=== PATIENT | female | born 1960 | race Caucasian/White ===

== ENCOUNTER → 2016-10-23 | Outpatient (CLI) | payer OTHER ==
[~2016-10-23] MED LIST: FILG300I4 IM; LEVE750T PO; LORA1TAB13 PO; MIRT45TA PO; ONDA4TAB65 PO; OPTIRAY 320 IV PRN; OXYC1CAP5 PO; VENL75TA4 PO
--- NOTE | 2016-10-23 16:34 | DIAGNOSTIC IMAGING REPORT ---
CT ANGIOGRAM OF THE CHEST CLINICAL HISTORY: Dyspnea on exertion. COMPARISON STUDY: Chest x-ray dated 04/15/2009. Chest x-ray dated 05/09/2014. TECHNIQUE: Following the IV administration of 91 cc of Optiray 320, CT angiogram of the chest was performed from the upper abdomen to the thoracic inlet utilizing the pulmonary embolus protocol. Images are reviewed in the axial, sagittal, and coronal planes. 3-D MIPS images are created and assessed. IV contrast was administered without complication. CT DOSE: 287.65 mGy.cm FINDINGS: Thyroid: Imaged portions of the thyroid gland are normal in size and attenuation. Thoracic aorta: There is mild atherosclerotic calcification of the thoracic aorta, which is normal in caliber and demonstrates standard 3-vessel arch anatomy. No dissection is seen. Pulmonary vasculature: The pulmonary trunk is normal in caliber. There are no central filling defects identified in the main, lobar, or segmental pulmonary arteries to suggest pulmonary embolus. Heart: The heart is top normal in size and configuration, and without pericardial effusion. Lungs and pleural spaces: There is no airspace consolidation or pleural effusion. Dependent atelectasis is noted. The trachea and central airways are clear. Mediastinum: Mildly enlarged mediastinal lymph nodes measure up to 12 mm in short axis. Valerie: Clear. Axillae: There is no axillary lymphadenopathy. Upper abdomen: A small hiatal hernia is identified. Cholecystectomy clips are noted. There is severe hepatic steatosis. Skeletal structures: The skeletal structures are osteopenic. No lytic or blastic bony lesions are seen. Fusion hardware is noted in the lower cervical spine. Chronic posttraumatic deformity is suggested in the distal right clavicle. IMPRESSION: 1. There is no evidence of pulmonary embolus in the main, lobar, or segmental pulmonary arteries. 2. There is no airspace consolidation or pleural effusion. 3. Severe hepatic steatosis. 4. Mildly enlarged mediastinal lymph nodes are nonspecific and may be on a reactive basis. Clinical correlation will be required. Electronically signed by: Keegan Caceres M.D. 10/23/2016 4:33 PM Dictated Date/Time: 10/23/2016 4:26 PM
== END | disposition home or self-care (01) ==
LOC: C.CTS 16:03
PROVIDERS: ATTEND Nurse Practitioner
DX: R06.09 Other forms of dyspnea (principal); R91.8 Other nonspecific abnormal finding of lung field; J98.4 Other disorders of lung

== ENCOUNTER → 2017-01-01 | Outpatient (CLI) | payer OTHER ==
[~2017-01-01] MED LIST changes: -OPTIRAY 320 IV PRN
--- NOTE | 2017-01-01 09:22 | DIAGNOSTIC IMAGING REPORT ---
(BARIUM SWALLOW) ESOPHAGUS CLINICAL HISTORY: Short of breath. Pneumonia. COMPARISON STUDY: Upper GI series and small bowel follow-through 01/23/2007. FLUOROSCOPY TIME: 1.2 minutes.. FINDINGS: 20 fluoroscopic spot images. Mild esophageal dysmotility. Esophagus is normal in course and caliber. The contours of the hypopharynx are within normal limits. Anterior cervical discectomy and fusion. No hiatus hernia. No gastroesophageal reflux. The barium tablet passed without difficulty. IMPRESSION: Mild esophageal dysmotility. Electronically signed by: Charan Miles M.D. 01/01/2017 9:21 AM Dictated Date/Time: 01/01/2017 9:19 AM
== END | disposition home or self-care (01) ==
LOC: C.RAD 08:51
PROVIDERS: ATTEND Nurse Practitioner Family
DX: R06.02 Shortness of breath (principal)

== ENCOUNTER → 2017-01-27 | Outpatient (CLI) | payer OTHER ==
[2017-01-27 12:39] LABS: ARTERIAL BLD GAS O2 SATURATION 92.5 % (90-95); ARTERIAL BLOOD GAS BASE EXCESS -0.5 mEq/L (-9-1.8); ARTERIAL BLOOD GAS HCO3 24 mmol/L (19-24); ARTERIAL BLOOD GAS PO2 69 mm/Hg (80-95); ARTERIAL BLOOD GAS pH 7.41 (7.35-7.45)
[2017-01-27 12:41] LABS: ALLEN TEST POSITIVE (POS); O2 ADMINISTRATION ROOM AIR
[2017-01-27 12:52] LABS: METHEMOGLOBIN** 0.1 % (0.0-1.5)
== END | disposition home or self-care (01) ==
LOC: C.LAB 11:55
PROVIDERS: ATTEND Nurse Practitioner Family
DX: R06.09 Other forms of dyspnea (principal)

== ENCOUNTER → 2017-02-21 | Outpatient (CLI) | payer OTHER ==
--- NOTE | 2017-02-21 13:23 | DIAGNOSTIC IMAGING REPORT ---
VIDEO SWALLOW HISTORY: Dysphagia K22.4,R13.10 TECHNIQUE: Video fluoroscopic evaluation of swallowing was performed in the AP and lateral projections by the speech pathology staff. The patient is fed nectar-thick and thin liquid barium, a barium coated wafer, and barium pudding. FLUOROSCOPY TIME: 3 minutes. COMPARISON STUDY: None. FINDINGS: There is normal hyoid excursion and epiglottic deflection. No significant penetration or aspiration identified. Swallowing function is within normal limits. IMPRESSION: 1. No aspiration identified. 2. Please see the speech pathologist report for detailed findings and recommendations. Electronically signed by: Polo Crabtree M.D. 02/21/2017 1:22 PM Dictated Date/Time: 02/21/2017 1:21 PM
--- NOTE | 2017-02-21 14:04 | SWALLOWING EVALUATION ---
HISTORY: This 57 year-old woman was referred for a VFSS at [facility] in order to rule out microaspiration as a contributor to her chronic respiratory distress. The patient has a PMH significant for TBI (2010), seizure disorder, depression, Hep C, ETOH, HTN, PSH, anxiety, chronic pain, GERD. Currently the patient's diet level is regular. PROCEDURE: The patient was seen in the Radiology Department of [facility] for the VFSS. Cursory examination of the oral cavity revealed adequate dentition. Movement of the articulators was WNL. The patient was seated on a stool and was viewed in both the Anterior-Posterior (A-P) and Lateral planes. Volitional phonation exercises completed in the A-P plane revealed cervical hardware making it difficult to visualize vocal fold movement. In the lateral plane, the patient was given the following boluses: 1 tsp. thin liquid barium x 2, single swallow thin liquid barium self-presented from a cup, sequential swallows of thin liquid barium self-presented from a cup, 1 tsp. nectar-thick liquid barium, single swallow nectar-thick liquid barium self-presented from a cup, 1 tsp. barium pudding, and 1 club cracker with barium pudding. The patient was then repositioned into the A-P plane and given 1 tsp. barium pudding followed by a self-presented cup sip thin liquid barium as liquid wash. RESULTS: Oral Stage: Labial closure and tongue control was adequate. Mastication was timely and efficient. Bolus transport was brisk. There was oral residue after the initial swallow on the tongue. Initiation of the pharyngeal swallow was timely. After initial swallow patient had oral residue, but it cleared easily with a second dry swallow. Pharyngeal Stage: Soft palate elevation as complete. Laryngeal elevation and anterior hyoid excursion was complete. Epiglottic inversion was complete. Laryngeal vestibular closure was complete. Pharyngeal stripping wave was complete. Pharyngeal contraction was complete. Pharyngoesophageal segment opening had complete distension and duration with no obstruction of flow. Tongue base retraction was complete. There was no pharyngeal residue. Patient did not have any penetration or aspiration with any consistency. Patient's pharyngeal swallow was within normal limits. Esophageal Stage: There was mild esophageal retention that was cleared easily with a liquid wash. SUMMARY/RECOMMENDATIONS: This patient presents with normal swallow function. There was no penetration or aspiration. Swallow is WNL. A regular diet with thin liquids is recommended. There is no apparent role for continued outpatient [facility] services. A summary of the results and recommendations was discussed with patient and a friend who accompanied her and understanding was verbalized. Thank you for referral of this patient. Please contact me at if any additional information is needed. Loretta López [facility]
== END | disposition home or self-care (01) ==
LOC: C.RAD 11:48
PROVIDERS: ATTEND Nurse Practitioner Family
DX: K22.4 Dyskinesia of esophagus (principal); R13.10 Dysphagia, unspecified

== ENCOUNTER 2018-04-08 11:31 | Inpatient (IN) | payer OTHER ==
[~2018-04-08] VITALS: Ht 167.6 cm; Wt 70.4 kg
[2018-04-08] VITALS (13 sets, daily range): BP systolic 128–169; BP diastolic 69–100; PULSE 77–98; TEMP 36.8–37; O2SAT 98–100; BMI 26.0
[~2018-04-08 11:31] MED LIST changes: +ATV1 PO; +CYM20 PO; +ETOMIDATE 2 MG/ML 20 ML VIAL IV ONE; -FILG300I4 IM; +FLV1 PO; +FNTTP25 TOP; +HYDR-3983 PO; +LEVE500T14 PO; -LEVE750T PO; -LORA1TAB13 PO; +LRS20 PO; -MIRT45TA PO; -ONDA4TAB65 PO; +ONDA4TAB9 PO; -OXYC1CAP5 PO; +PRLSR20 PO; +RMRS/45 PO; +ROCURONIUM BROMIDE 10 MG/ML 5 ML VIAL IV ONE; +THIA1TAB PO; +TPRSR50 PO
[2018-04-08] MEDS ORDERED: LORAZEPAM 2 MG/ML 1 ML VIAL ONE ×2 (11:55→12:04)
[2018-04-08] MEDS ORDERED: HALOPERIDOL LACTATE 5 MG/ML 1 ML VIAL ONE ×2 (11:57)
[2018-04-08] MEDS ORDERED: SODIUM CHLORIDE 0.9% 1000ML 1,000 ML IV STA (12:03)
[2018-04-08] MEDS ORDERED: RAPID SEQUENCE INDUCTION BAG ONE ×2 (12:06)
[2018-04-08] MEDS ORDERED: PIPERACILLIN/TAZOBACTAM 4.5 GM/100ML D5W IV STA (12:26)
[2018-04-08] MEDS ORDERED: MULTI-VITAMIN INFUSION INJ 10 ML, THIAMINE HCL INJ 100 MG, FoLIC ACID INJ 1 MG in SODIU... IV ONE (12:30)
--- NOTE | 2018-04-08 12:31 | DIAGNOSTIC IMAGING REPORT ---
CHEST ONE VIEW PORTABLE HISTORY: 58 years-old Female EVALUATE ALTERED MENTAL STATUS/WEAKNESS acute respiratory failure with weakness and altered mental status COMPARISON: Chest radiograph 02/26/2018 TECHNIQUE: Portable AP view of the chest FINDINGS: Cardiac silhouette is upper limits of normal in size. Mild chronic interstitial coarsening, most pronounced in the perihilar distributions and lung bases appear unchanged. Calcifications of the tracheal bronchial tree. No pneumothorax, pleural effusion or focal airspace consolidation. No overt pulmonary edema. Endotracheal tube is present coursing along the right mainstem bronchus below the level the rashmi. Bones of the chest appear grossly intact. Fusion hardware of the cervical spine noted. IMPRESSION: 1. Endotracheal tube overlies the right mainstem bronchus. Retraction of approximately 4.0 cm with follow-up imaging recommended. 2. Chronic bibasilar interstitial opacities. The above report was generated using voice recognition software. It may contain grammatical, syntax or spelling errors. Electronically signed by: Berny Gusman M.D. 04/08/2018 12:29 PM Dictated Date/Time: 04/08/2018 12:27 PM
[2018-04-08 12:42] LABS: BASO % 0.5 %; BASO ABS # 0.03 K/uL (0-0.2); EOS % 4.2 %; EOS ABS # 0.23 K/uL (0-0.5); HEMATOCRIT 43.1 % (37-47); HEMOGLOBIN 14.1 g/dL (12.0-16.0); LYMPH % 31.4 %; LYMPH ABS # 1.74 K/uL (1.2-3.4); MEAN CELL VOLUME 99.8 fL (80-100); MEAN CORPUSCULAR HEMOGLOBIN 32.6 pg (25-34); MEAN CORPUSCULAR HGB CONC 32.7 g/dl (32-36); MEAN PLATELET VOLUME 9.2 fL (7.4-10.4); MONO % 8.3 %; MONO ABS # 0.46 K/uL (0.11-0.59); NEUT % 55.6 %; NEUT ABS # 3.08 K/uL (1.4-6.5); PLATELET COUNT 155 K/uL (130-400); RED CELL DISTRIBUTION WIDTH CV 15.2 % (11.5-14.5); RED CELL DISTRIBUTION WIDTH SD 55.2 fL (36.4-46.3); WHITE BLOOD COUNT 5.54 K/uL (4.8-10.8)
[2018-04-08] MEDS ORDERED: PROPOFOL IV EMULSION 10 MG/ML 100 ML VIAL ONE (12:43)
[2018-04-08] MEDS ORDERED: ACAM0.05 PO (12:45)
[2018-04-08] MEDS ORDERED: SUMA50TA15 PO (12:45)
[2018-04-08] MEDS ORDERED: UMEC1AER PO (12:45)
[2018-04-08] MEDS ORDERED: LABETALOL HCL IV 5 MG/ML 20ML IV STA (12:52)
[2018-04-08] MEDS ORDERED: LABETALOL HCL IV 5 MG/ML 20ML ONE (12:52)
[2018-04-08 13:00] LABS: INR 1.1 (0.9-1.1); PTT PATIENT 25.9 SECONDS (21.0-31.0)
[2018-04-08 13:11] LABS: ALBUMIN 3.4 gm/dl (3.4-5.0); ALT/SGPT 17 U/L (12-78); AST/SGOT 33 U/L (15-37); BLOOD UREA NITROGEN 4 mg/dl (7-18); CALCIUM 8.7 mg/dl (8.5-10.1); CARBON DIOXIDE 24 mmol/L (21-32); CREATININE 0.67 mg/dl (0.60-1.20); GLUCOSE 110 mg/dl (70-99); SODIUM 140 mmol/L (136-145)
[2018-04-08 13:12] LABS: ALKALINE PHOSPHATASE 95 U/L (45-117); TOTAL PROTEIN 7.5 gm/dl (6.4-8.2)
[2018-04-08] MEDS ORDERED: ICU PROTOCOL FOR HYPERGLYCEMIA PRN ×2 (13:15→14:15)
[2018-04-08] MEDS ORDERED: DIAZEPAM INJ 5 MG/ML 2 ML CARP IV STA (13:46)
[2018-04-08] MEDS ORDERED: DIAZEPAM 5 MG/ML INJ 10ML VIAL ONE (13:49)
--- NOTE | 2018-04-08 14:30 | DIAGNOSTIC IMAGING REPORT ---
HEAD WITHOUT CONTRAST (CT) CLINICAL HISTORY: 58 years-old Female with EVALUATE ALTERED MENTAL STATUS/WEAKNESS. Acute weakness with altered mental status TECHNIQUE: Multiple axial CT images of the head were obtained without contrast. A dose lowering technique was utilized adhering to the principles of ALARA. CT DOSE: 537.48 mGy.cm COMPARISON: CT head 02/27/2018. FINDINGS: No acute intracranial hemorrhage, midline shift, intracranial mass, hydrocephalus, territorial ischemia or abnormal extra-axial collection. Postoperative changes from prior right calvarial craniotomy. No acute calvarial fracture. Mastoid air cells are clear. Mucosal thickening of the ethmoid air cells, and nasal turbinates and nasopharynx. Soft tissues and orbits are unremarkable. IMPRESSION: No acute intracranial abnormality. The above report was generated using voice recognition software. It may contain grammatical, syntax or spelling errors. Electronically signed by: Berny Gusman M.D. 04/08/2018 2:28 PM Dictated Date/Time: 04/08/2018 2:26 PM
--- NOTE | 2018-04-08 15:49 | History and Physical ---
History & Physical Date & Time of Service: Apr 08, 2018 at 14:08 Chief Complaint: [facility] Primary Care Physician: Manuelito Caal D.O. History of Present Illness Source: clinic records, hospital records, EMS Patient is a 58-year-old female with PMH seizure disorder, COPD, anxiety, depression, chronic pain on narcotic pain medication, alcohol abuse, history of alcohol withdrawal in past presented to the ER via EMS for altered mental status. It is reported that patient's family member found patient today sitting in chair not responding with her tongue sticking out and EMS was called. In route patient became apneic and was given Narcan 2 intranasally by EMS. It is reported upon arrival to ER patient was agitated and aggressive with dilated bilateral pupils. ER nurse reports patient was found to have two 25 mcg fentanyl patches on. Patient was given Ativan 2 mg and Haldol 10 mg with continued combativeness, was then intubated, is on propofol and is in restraints. It is reported by family members that she drinks beer daily. It is reported last night she drank unknown amount of beer and vodka. Patient had recent admission to [facility] 03/02/18-03/05/18 (patient signed out AMA) for catecholamine induced cardiomyopathy, DTs, Wernicke's encephalopathy, NEREYDA, fracture navicular bone of right foot. Past Medical/Surgical History Medical Problems: (1) Abdominal pain Status: Resolved (2) ADJUSTMENT DISORDER WITH DEPRESSED MOOD Status: Chronic (3) Alcohol abuse Status: Chronic (4) Alcohol withdrawal delirium Status: Resolved (5) Alcohol withdrawal syndrome Status: Resolved (6) Benign hypertension Status: Chronic (7) Chronic diarrhea of unknown origin Status: Chronic (8) CHRONIC HEPATITIS C W/O HEPATIC COMA Status: Chronic (9) Diarrhea Status: Resolved (10) Displacement 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 Status: Chronic (11) Electrocardiogram abnormal Status: Resolved (12) Facial trauma Status: Resolved (13) Fall Status: Resolved (14) Glaucoma Status: Chronic (15) History of craniotomy Status: Resolved (16) Migraine Status: Chronic (17) Seizure Status: Resolved (18) Seizure disorder Status: Chronic (19) SHORTNESS OF BREATH Status: Resolved (20) Subdural hemorrhage Status: Resolved (21) Upper gastrointestinal hemorrhage Status: Resolved (22) Uterine leiomyoma Status: Chronic Surgical Problems: (1) History of carpal tunnel surgery Status: Resolved (2) History of cholecystectomy Status: Resolved (3) History of hysterectomy Status: Resolved Family History Gallbladder disease Hypertension Seizures Social History Smoking Status: Former Smoker Marital Status: in relationship Housing status: lives with family Occupational Status: disabled Immunizations History of Influenza Vaccine: Yes Influenza Vaccine Date: May 04, 2012 History of Tetanus Vaccine?: UTD Tetanus Immunization Date: Apr 22, 2012 History of Pneumococcal: Yes Pneumococcal Date: May 04, 2012 History of Hepatitis B Vaccine: Unknown Hepatitis Immunization Date: December 20, 1991 Allergies Coded Allergies: No Known Allergies (Verified , 04/08/18) Home Medications Scheduled Acamprosate Calcium (Acamprosate Calcium Dr), 2 TABS PO TID Baclofen (Baclofen), 20 MG PO QID Duloxetine HCl (Duloxetine HCl), 40 MG PO QPM Fentanyl (Fentanyl), 25 MCG TOP Q2D Folic Acid (Folic Acid), 1 MG PO QAM Levetiracetam (Keppra Xr), 500 MG PO BID Metoprolol Succinate (Metoprolol Succinate ER), 150 MG PO QAM Mirtazapine (Mirtazapine), 45 MG PO HS Omeprazole (Prilosec), 20 MG PO DAILY Sumatriptan Succinate (Imitrex), 50 MG PO PRN Thiamine Hcl (B-1), 100 MG PO DAILY Umeclidinium-Vilanterol (Anoro Ellipta 62.5-25 Mcg/INH), 1 PUFF PO DAILY Venlafaxine Hcl (Effexor), 75 MG PO DAILY Scheduled PRN Hydrocodone/Acetaminophen 7.5MG/325MG ([place] 7.5MG/325MG), 1 TAB PO Q4 PRN for Pain Lorazepam (Lorazepam), 1-2 MG PO Q6 PRN for Anxiety Ondansetron (Ondansetron HCl), 4 MG PO Q6 PRN for Nausea or Vomiting Review of Systems Further ROS unable to be obtained at this time secondary to pt's mental status Physical Exam Vital Signs Date Time Temp Pulse Resp B/P (MAP) Pulse Ox O2 Delivery O2 Flow Rate FiO2 04/08/18 13:36 165/91 04/08/18 13:31 96 24 162/96 100 Mechanical Ventilator 04/08/18 13:27 154/104 04/08/18 13:27 99 Mechanical Ventilator 04/08/18 13:21 168/99 04/08/18 13:16 94 24 149/92 100 Mechanical Ventilator 04/08/18 13:11 155/99 04/08/18 13:09 36.4 114 16 146/104 100 Room Air 04/08/18 13:04 179/110 04/08/18 13:01 108 24 100 Mechanical Ventilator 04/08/18 12:51 189/118 04/08/18 12:46 110 24 191/120 100 Mechanical Ventilator 04/08/18 12:31 109 24 100 Mechanical Ventilator 04/08/18 12:29 109 24 185/120 04/08/18 12:15 50 04/08/18 11:55 102 04/08/18 11:41 114 31 146/104 87 Room Air General Appearance: WD/WN, + pertinent finding (Pt currently intubated and sedated) Head: normocephalic Eyes: + pertinent finding (pupils approx 4mm and reactive bilaterally) ENT: + pertinent finding (+ET tube) Neck: trachea midline Respiratory/Chest: + pertinent finding (intubated, noted symmetric chest rise, anterior breath sounds intact bilaterally) Cardiovascular: regular rate, rhythm (rate 98) Abdomen/GI: normal bowel sounds, soft Extremities/Musculoskelatal: normal capillary refill, + pertinent finding ( Right foot with ortho boot on) Neurologic/Psych: + pertinent finding (currently medically sedated) Skin: warm/dry Diagnostics Laboratory Results Results Past 24 Hours Test 04/08/18 12:50 04/08/18 12:55 04/08/18 13:01 Range/Units White Blood Count 5.54 4.8-10.8 K/uL Red Blood Count 4.32 4.2-5.4 M/uL Hemoglobin 14.1 12.0-16.0 g/dL Hematocrit 43.1 37-47 % Mean Corpuscular Volume 99.8 80-100 fL Mean Corpuscular Hemoglobin 32.6 25-34 pg Mean Corpuscular Hemoglobin Concent 32.7 32-36 g/dl Platelet Count 155 130-400 K/uL Mean Platelet Volume 9.2 7.4-10.4 fL Neutrophils (%) (Auto) 55.6 % Lymphocytes (%) (Auto) 31.4 % Monocytes (%) (Auto) 8.3 % Eosinophils (%) (Auto) 4.2 % Basophils (%) (Auto) 0.5 % Neutrophils # (Auto) 3.08 1.4-6.5 K/uL Lymphocytes # (Auto) 1.74 1.2-3.4 K/uL Monocytes # (Auto) 0.46 0.11-0.59 K/uL Eosinophils # (Auto) 0.23 0-0.5 K/uL Basophils # (Auto) 0.03 0-0.2 K/uL RDW Standard Deviation 55.2 36.4-46.3 fL RDW Coefficient of Variation 15.2 11.5-14.5 % Immature Granulocyte % (Auto) 0.0 % Immature Granulocyte # (Auto) 0.00 0.00-0.02 K/uL Prothrombin Time 12.0 9.0-12.0 SECONDS Prothromb Time International Ratio 1.1 0.9-1.1 Activated Partial Thromboplast Time 25.9 21.0-31.0 SECONDS Partial Thromboplastin Ratio 1.0 Sodium Level 140 136-145 mmol/L Potassium Level 4.0 3.5-5.1 mmol/L Chloride Level 104 98-107 mmol/L Carbon Dioxide Level 24 21-32 mmol/L Anion Gap 12.0 3-11 mmol/L Blood Urea Nitrogen 4 7-18 mg/dl Creatinine 0.67 0.60-1.20 mg/dl Estimated GFR () 111.5 Estimated GFR (Non- 96.2 BUN/Creatinine Ratio 6.4 10-20 Random Glucose 110 70-99 mg/dl Calcium Level 8.7 8.5-10.1 mg/dl Magnesium Level 1.8 1.8-2.4 mg/dl Total Bilirubin 0.4 0.2-1 mg/dl Aspartate Amino Transf (AST/SGOT) 33 15-37 U/L Alanine Aminotransferase (ALT/SGPT) 17 12-78 U/L Alkaline Phosphatase 95 45-117 U/L Total Creatine Kinase 53 26-192 U/L Troponin I < 0.015 0-0.045 ng/ml Total Protein 7.5 6.4-8.2 gm/dl Albumin 3.4 3.4-5.0 gm/dl Globulin 4.1 2.5-4.0 gm/dl Albumin/Globulin Ratio 0.8 0.9-2 Thyroid Stimulating Hormone (TSH) 1.110 0.300-4.500 uIu/ml Chemistry Specimen Hemolysis Urine Color YELLOW Urine Appearance CLEAR CLEAR Urine pH 5.0 4.5-7.5 Urine Specific [place] 1.016 1.000-1.030 Urine Protein NEG NEG Urine Glucose (UA) NEG NEG Urine Ketones NEG NEG Urine Occult Blood NEG NEG Urine Nitrite NEG NEG Urine Bilirubin NEG NEG Urine Urobilinogen NEG NEG Urine Leukocyte Esterase NEG NEG Urine Opiates Screen POS NEG Urine Methadone, Qualitative NEG NEG Urine Barbiturates POS NEG Urine Phencyclidine (PCP) Level NEG NEG Ur Amphetamine/Methamphetamine NEG NEG MDMA (Ecstasy) Screen NEG NEG Urine Benzodiazepines Screen POS NEG Urine Cocaine Metabolite NEG NEG Urine Marijuana (THC) NEG NEG Venous Blood pH 7.38 7.36-7.41 Venous Blood Partial Pressure CO2 44 38.0-50.0 mmHg Venous Blood Partial Pressure O2 63 mmHg Venous Blood HCO3 26 mmol/L Venous Blood Oxygen Saturation 90.0 % Venous Blood Base Excess 0.1 mEq/L Ethyl Alcohol mg/dL 76.4 0-3 mg/dl Microbiology Results 04/08/18 Blood Culture, Received Pending 04/08/18 Blood Culture, Received Pending 04/08/18 MRSA DNA Surveillance Screen, Ordered Pending Diagnostic Radiology CXR: IMPRESSION: 1. Endotracheal tube overlies the right mainstem bronchus. Retraction of approximately 4.0 cm with follow-up imaging recommended. 2. Chronic bibasilar interstitial opacities. CT HEAD: IMPRESSION: No acute intracranial abnormality. Impression Assessment and Plan Patient is a 58-year-old female with PMH seizure disorder, COPD, anxiety, depression, chronic pain on narcotic pain medication, alcohol abuse, history of alcohol withdrawal in past presented to the ER via EMS for altered mental status. It is reported that patient's family member found patient today sitting in chair not responding with her tongue sticking out and EMS was called. In route patient became apneic and was given Narcan 2 intranasally by EMS. It is reported upon arrival to ER patient was agitated and aggressive with dilated bilateral pupils. ALTERED MENTAL STATUS Possible drug/alcohol induced. Initially in ER P: 114, R: 31, BP: 146/104, 87% on RA. ER nurse reports patient was found to have two 25 mcg fentanyl patches on. Patient was given Ativan 2 mg and Haldol 10 mg with continued combativeness/agitation, was then intubated, is on propofol and is in restraints. Urine drug screen +opiates, barbiturates, benzos. WBC: 5.5, CO2: 24, anion gap: 12. POC Lactic acid: 3.6. Pt was given zosyn, IVF, labetalol in ER repeat lactic acid admit ICU, questioned documents examiner aware further evaluation and treatment per ICU ALCOHOL ABUSE unknown amount of alcohol ingested last night. ETOH: 76. banana bag started in ER watch for alcohol withdrawal alcohol withdrawal prevention per questioned documents examiner PROLONGED QTc Qtc: 523 avoid QTc prolonging agents monitor EKG H/O SEIZURE DISORDER hx seizure in february 2018, no known reported seizures since on keppra at home H/O COPD CXR: chronic bibasilar opacities, pt afebrile On anora ellipta at home H/O CATECHOLAMINE INDUCED CARDIOMYOPATHY Recent admission 02/2018 Echo 03/04/18: * Compared to previous study of 02/28/18: * Apical ballooning patterns has nearly resolved. * LV systolic function improved to 45-50% with mild global hypokinesis. Hx stress test 03/25/18: estimated left ventricular ejection fraction is above 50%. Lexiscan Cardiolite study is negative for ischemia, however there was a great deal of attenuation artifact from uptake in the liver and mesentery which limits the overall study. H/O CHRONIC PAIN On chronic narcotics - fentanyl patch, hydrocodone/acetaminophen. In ER pt found to have two 25mcg fentanyl patches on urine drug screen positive narcotics H/O SUBDURAL HEMATOMA s/p evacuation [address] head no acute changes H/O ANXIETY/DEPRESSION On SSRI and Ativan prn at home DVT Prophylaxis SCDs Admit ICU Full code Follows with Dr Manuelito Caal for routine care Pt was seen with Dr Huang. See addendum ADDENDUM: This is a 58 year old female with a past medical history of alcohol/drug abuse, seizure disorder, depression/anxiety, COPD. Presents with respiratory depression, altered mental status with no response. Given Narcan x2, she became agitated/anxious. Intubated for safety and due to agitation. Was taken to the ICU; started on Propofol drip. Spoke with patient's partner and POA - she states that patient had vodka last evening and may have had two Fentanyl patches. Plan is to monitor her overnight and wean off the Propofol drip in the AM, possible extubation on 04/09. Resuscitation Status VTE Prophylaxis Will order VTE Prophylaxis: Yes Reason no Mechanical VTE Order: Treatment not indicated Additional Copies To Manuelito Caal D.O.
--- NOTE | 2018-04-08 16:03 | Critical Care Consultation ---
Critical Care Consultation Date of Consultation: Apr 08, 2018. Attending Physician: Rachel Holm M.D. Reason for Consultation: Critical care and ventilator management History of Present Illness Patient is a 58-year-old woman with a history of chronic alcoholism and polypharmacy abuse who was found by a family member unresponsive today and EMS was called. She was given Narcan 2 with some significant improvement and she then became agitated and aggressive. She had 2 25 microgram fentanyl patches on. In the emergency department patches were removed she grew increasingly agitated and combative and was intubated. Toxicology screen was positive for alcohol benzodiazepines and barbiturates and opiates. Patient has had similar admissions in the past. She is now sedated with propofol. Past Medical/Surgical History History of seizure disorder Chronic alcoholism Hypertension Hepatitis C Chronic back pain History of subdural hemorrhage requiring craniotomy History of upper GI bleed Family History Gallbladder disease Hypertension Seizures Social History Smoking Status: Former Smoker Alcohol Use: heavy Marital Status: in relationship Housing Status: lives with friends Occupation Status: disabled Allergies Coded Allergies: No Known Allergies (Verified , 04/08/18) Home Medications Scheduled Acamprosate Calcium (Acamprosate Calcium Dr), 2 TABS PO TID Baclofen (Baclofen), 20 MG PO QID Duloxetine HCl (Duloxetine HCl), 40 MG PO QPM Fentanyl (Fentanyl), 25 MCG TOP Q2D Folic Acid (Folic Acid), 1 MG PO QAM Levetiracetam (Keppra Xr), 500 MG PO BID Metoprolol Succinate (Metoprolol Succinate ER), 150 MG PO QAM Mirtazapine (Mirtazapine), 45 MG PO HS Omeprazole (Prilosec), 20 MG PO DAILY Sumatriptan Succinate (Imitrex), 50 MG PO PRN Thiamine Hcl (B-1), 100 MG PO DAILY Umeclidinium-Vilanterol (Anoro Ellipta 62.5-25 Mcg/INH), 1 PUFF PO DAILY Venlafaxine Hcl (Effexor), 75 MG PO DAILY Scheduled PRN Hydrocodone/Acetaminophen 7.5MG/325MG ([place] 7.5MG/325MG), 1 TAB PO Q4 PRN for Pain Lorazepam (Lorazepam), 1-2 MG PO Q6 PRN for Anxiety Ondansetron (Ondansetron HCl), 4 MG PO Q6 PRN for Nausea or Vomiting Current Inpatient Medications Current Inpatient Medications Medications (Trade) Dose Ordered Sig/Rm Route Start Time Stop Time Status Last Admin Dose Admin Propofol (Diprivan Iv Emulsion 100ml Vial) 1 dose UD PRN IV 04/08/18 12:45 04/11/18 12:44 Miscellaneous Information (Icu Protocol For Hyperglycemia) 1 ea PRN PRN N/A 04/08/18 14:15 04/10/18 14:14 Review of Systems Unobtainable, patient intubated and sedated Physical Exam Date Time Temp Pulse Resp B/P (MAP) Pulse Ox O2 Delivery O2 Flow Rate FiO2 04/08/18 14:06 143/98 04/08/18 14:01 159/100 04/08/18 14:01 95 24 159/100 (119) 99 Mechanical Ventilator 50 04/08/18 13:56 92 24 160/97 100 Mechanical Ventilator 04/08/18 13:51 154/95 04/08/18 13:46 161/93 04/08/18 13:41 97 24 158/105 100 04/08/18 13:36 165/91 04/08/18 13:31 96 24 162/96 100 Mechanical Ventilator 04/08/18 13:27 154/104 04/08/18 13:27 99 Mechanical Ventilator 04/08/18 13:21 168/99 04/08/18 13:16 94 24 149/92 100 Mechanical Ventilator 04/08/18 13:11 155/99 04/08/18 13:09 36.4 114 16 146/104 100 Room Air 04/08/18 13:04 179/110 04/08/18 13:01 108 24 100 Mechanical Ventilator 04/08/18 12:51 189/118 04/08/18 12:46 110 24 191/120 100 Mechanical Ventilator 04/08/18 12:31 109 24 100 Mechanical Ventilator 04/08/18 12:29 109 24 185/120 04/08/18 12:15 50 04/08/18 11:55 102 04/08/18 11:41 114 31 146/104 87 Room Air Disheveled, intubated, sedated Head: Normocephalic atraumatic Eyes: Pupils 5 mm reactive symmetrical Neck: Supple, trachea midline Chest: Clear bilaterally, no wheezing rales or rhonchi Cardiac: Regular rhythm no murmurs rubs or gallops Abdomen: Soft nontender normal active bowel sounds Extremities no cyanosis clubbing or edema Neuro: Cannot examine patient sedated Laboratory Results Last 24 Hours Test 04/08/18 12:41 04/08/18 12:50 04/08/18 12:55 04/08/18 13:01 Bedside Lactic Acid Venous 3.69 mmol/L White Blood Count 5.54 K/uL Red Blood Count 4.32 M/uL Hemoglobin 14.1 g/dL Hematocrit 43.1 % Mean Corpuscular Volume 99.8 fL Mean Corpuscular Hemoglobin 32.6 pg Mean Corpuscular Hemoglobin Concent 32.7 g/dl Platelet Count 155 K/uL Mean Platelet Volume 9.2 fL Neutrophils (%) (Auto) 55.6 % Lymphocytes (%) (Auto) 31.4 % Monocytes (%) (Auto) 8.3 % Eosinophils (%) (Auto) 4.2 % Basophils (%) (Auto) 0.5 % Neutrophils # (Auto) 3.08 K/uL Lymphocytes # (Auto) 1.74 K/uL Monocytes # (Auto) 0.46 K/uL Eosinophils # (Auto) 0.23 K/uL Basophils # (Auto) 0.03 K/uL RDW Standard Deviation 55.2 fL RDW Coefficient of Variation 15.2 % Immature Granulocyte % (Auto) 0.0 % Immature Granulocyte # (Auto) 0.00 K/uL Prothrombin Time 12.0 SECONDS Prothromb Time International Ratio 1.1 Activated Partial Thromboplast Time 25.9 SECONDS Partial Thromboplastin Ratio 1.0 Sodium Level 140 mmol/L Potassium Level 4.0 mmol/L Chloride Level 104 mmol/L Carbon Dioxide Level 24 mmol/L Anion Gap 12.0 mmol/L Blood Urea Nitrogen 4 mg/dl Creatinine 0.67 mg/dl Estimated GFR () 111.5 Estimated GFR (Non- 96.2 BUN/Creatinine Ratio 6.4 Random Glucose 110 mg/dl Calcium Level 8.7 mg/dl Phosphorus Level 4.7 mg/dl Magnesium Level 1.8 mg/dl Total Bilirubin 0.4 mg/dl Aspartate Amino Transf (AST/SGOT) 33 U/L Alanine Aminotransferase (ALT/SGPT) 17 U/L Alkaline Phosphatase 95 U/L Total Creatine Kinase 53 U/L Troponin I < 0.015 ng/ml Total Protein 7.5 gm/dl Albumin 3.4 gm/dl Globulin 4.1 gm/dl Albumin/Globulin Ratio 0.8 Thyroid Stimulating Hormone (TSH) 1.110 uIu/ml Chemistry Specimen Hemolysis Urine Color YELLOW Urine Appearance CLEAR Urine pH 5.0 Urine Specific [place] 1.016 Urine Protein NEG Urine Glucose (UA) NEG Urine Ketones NEG Urine Occult Blood NEG Urine Nitrite NEG Urine Bilirubin NEG Urine Urobilinogen NEG Urine Leukocyte Esterase NEG Urine Opiates Screen POS Urine Methadone, Qualitative NEG Urine Barbiturates POS Urine Phencyclidine (PCP) Level NEG Ur Amphetamine/Methamphetamine NEG MDMA (Ecstasy) Screen NEG Urine Benzodiazepines Screen POS Urine Cocaine Metabolite NEG Urine Marijuana (THC) NEG Venous Blood pH 7.38 Venous Blood Partial Pressure CO2 44 mmHg Venous Blood Partial Pressure O2 63 mmHg Venous Blood HCO3 26 mmol/L Venous Blood Oxygen Saturation 90.0 % Venous Blood Base Excess 0.1 mEq/L Ethyl Alcohol mg/dL 76.4 mg/dl Test 04/08/18 15:30 Diagnostic Results Chest x-ray shows endotracheal tube well positioned and no acute disease CT head unremarkable Assessment & Plan (1) Altered mental status Secondary to polypharmacy overdose with alcohol, benzodiazepines, barbiturates, and opiates Plan: Mechanical ventilation overnight. Assess for weaning in a.m. Propofol as needed for sedation (2) Alcohol intoxication Plan, supportive care. Multivitamins and thiamine (3) Seizure disorder Continue Keppra 500 twice daily Critical care time 35 minutes
[2018-04-08] MEDS ORDERED: NURSING VERBAL MED ORDER ONE (17:00)
[2018-04-08] MEDS: PROPOFOL IV EMULSION 10 MG/ML 100 ML VIAL IV PRN ×2 (17:49→23:31)
[2018-04-08] MEDS: FAMOTIDINE IV INJ 20 MG in SYRINGE 3 ML IV SCH (18:05)
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
[2018-04-08] MEDS: LEVETIRACETAM SOLN 500 MG/5 ML UDP PO SCH (21:40)
[2018-04-08] MEDS: HEPARIN SOD 5000 UNIT/0.5 ML CARP SQ SCH (21:42)
[2018-04-09] VITALS (22 sets, daily range): BP systolic 113–165; BP diastolic 67–87; PULSE 72–103; TEMP 36.5–37.6; O2SAT 94–100; Ht 167.6 cm; Wt 70.4 kg
[2018-04-09] MEDS: PROPOFOL IV EMULSION 10 MG/ML 100 ML VIAL IV PRN ×2 (03:11→07:55)
[2018-04-09 04:48] LABS: BASO % 0.4 %; BASO ABS # 0.02 K/uL (0-0.2); EOS % 1.4 %; EOS ABS # 0.07 K/uL (0-0.5); HEMATOCRIT 38.9 % (37-47); HEMOGLOBIN 12.9 g/dL (12.0-16.0); IG# 0.01 K/uL (0.00-0.02); LYMPH % 17.9 %; MEAN CELL VOLUME 98.5 fL (80-100); MEAN CORPUSCULAR HEMOGLOBIN 32.7 pg (25-34); MEAN CORPUSCULAR HGB CONC 33.2 g/dl (32-36); MEAN PLATELET VOLUME 9.3 fL (7.4-10.4); MONO % 12.5 %; MONO ABS # 0.63 K/uL (0.11-0.59); NEUT % 67.6 %; NEUT ABS # 3.39 K/uL (1.4-6.5); PLATELET COUNT 140 K/uL (130-400); RED CELL DISTRIBUTION WIDTH CV 15.5 % (11.5-14.5); WHITE BLOOD COUNT 5.02 K/uL (4.8-10.8)
[2018-04-09 05:08] LABS: CALCIUM 8.2 mg/dl (8.5-10.1); CREATININE 0.63 mg/dl (0.60-1.20); PHOSPHORUS 4.6 mg/dl (2.5-4.9); POTASSIUM 3.4 mmol/L (3.5-5.1); TOTAL PROTEIN 6.5 gm/dl (6.4-8.2)
[2018-04-09] MEDS: HEPARIN SOD 5000 UNIT/0.5 ML CARP SQ SCH ×3 (06:02→22:09)
[2018-04-09] MEDS: FAMOTIDINE IV INJ 20 MG in SYRINGE 3 ML IV SCH (06:22)
[2018-04-09] MEDS: LEVETIRACETAM SOLN 500 MG/5 ML UDP PO SCH (08:34)
[2018-04-09] MEDS ORDERED: MAGNESIUM SULFATE 1GM / D5W 100 ML IV ONE (09:30)
[2018-04-09] MEDS ORDERED: POTASSIUM CHLORIDE PWD 20 MEQ PACK PO ONE (09:30)
[2018-04-09] MEDS ORDERED: MULTI-VITAMIN INFUSION INJ 10 ML, THIAMINE HCL INJ 100 MG, FoLIC ACID INJ 1 MG in SODIU... IV ONE (09:45)
--- NOTE | 2018-04-09 10:26 | Critical Care Progress Note ---
Critical Care Progress Note Date of Service Apr 09, 2018. Attending Dr. Santiago Subjective Patient remained intubated and sedated overnight remained hemodynamically stable. We have now stopped her propofol and initiated spontaneous breathing trial. She is actually surprisingly calm and presently cooperative. Objective Intubated, nods appropriately Head: Normocephalic atraumatic [place] EOMI Neck supple no JVD Chest clear bilaterally Cardiac regular rhythm no murmurs rubs or gallops Abdomen soft nontender no masses no organomegaly Extremities warm well perfused no cyanosis no clubbing Assessment & Plan (1) Altered mental status Secondary to polypharmacy overdose with alcohol, benzodiazepines, barbiturates, and opiates Plan: Complete spontaneous breathing trial and evaluate for extubation (2) Alcohol intoxication Plan, supportive care. Multivitamins and thiamine (3) Seizure disorder Continue Keppra 500 twice daily Critical care time 35 minutes Data Medications: Current Inpatient Medications Medications (Trade) Dose Ordered Sig/Rm Route Start Time Stop Time Status Last Admin Dose Admin Propofol (Diprivan Iv Emulsion 100ml Vial) 1 dose UD PRN IV 04/08/18 12:45 04/11/18 12:44 04/09/18 07:55 1 DOSE Miscellaneous Information (Icu Protocol For Hyperglycemia) 1 ea PRN PRN N/A 04/08/18 14:15 04/10/18 14:14 Levetiracetam (Keppra Soln) 500 mg Q12 PO 04/08/18 21:00 05/08/18 20:59 04/09/18 08:34 500 MG Heparin Sodium (Porcine) (Heparin Sq 5000 Unit/0.5ml) 5,000 unit Q8 SQ 04/08/18 22:00 05/08/18 21:59 04/09/18 06:02 5,000 UNIT Famotidine 20 mg/ Syringe 5 ml @ 2.5 mls/min Q12H IV 04/08/18 18:00 05/08/18 17:59 04/09/18 06:22 2.5 MLS/MIN Multivitamins 10 ml/Thiamine HCl 100 mg/Folic Acid 1 mg/Sodium Chloride 1,011.2 ml @ 125 mls/ hr Q8H6M ONCE IV 04/09/18 09:45 04/09/18 17:50 04/09/18 09:27 125 MLS/HR Thiamine HCl (Vitamin B-1 Tab) 100 mg QAM PO 04/10/18 09:00 05/10/18 08:59 Folic Acid (Folvite Tab) 1 mg QAM PO 04/10/18 09:00 05/10/18 08:59 Magnesium Sulfate 100 ml @ 100 mls/hr ONE ONCE IV 04/09/18 09:30 04/09/18 10:29 04/09/18 10:13 100 MLS/HR Vital Signs: Date Time Temp Pulse Resp B/P (MAP) Pulse Ox O2 Delivery O2 Flow Rate FiO2 04/09/18 08:48 37.6 04/09/18 05:00 77 24 123/80 (94) 99 Mechanical Ventilator 04/09/18 04:57 30 04/09/18 04:00 36.5 79 24 118/72 (87) 96 Mechanical Ventilator 04/09/18 04:00 30 04/09/18 04:00 100 Mechanical Ventilator 30 04/09/18 03:00 99 24 143/84 (103) 97 Mechanical Ventilator 04/09/18 02:00 100 24 150/85 (106) 99 Mechanical Ventilator 30 04/09/18 01:54 30 04/09/18 01:00 99 24 154/81 (105) 100 Mechanical Ventilator 30 04/09/18 00:00 36.5 04/09/18 00:00 30 04/09/18 00:00 101 24 150/86 (107) 100 Mechanical Ventilator 30 04/09/18 00:00 100 Mechanical Ventilator 30 04/08/18 23:06 30 04/08/18 23:00 96 24 141/83 (102) 100 Mechanical Ventilator 30 04/08/18 22:00 98 22 148/83 (104) 98 Mechanical Ventilator 04/08/18 21:00 77 24 142/73 (96) 100 Mechanical Ventilator 30 04/08/18 20:00 37.0 80 24 128/69 (88) 100 Mechanical Ventilator 30 04/08/18 20:00 30 04/08/18 20:00 100 Mechanical Ventilator 30 04/08/18 19:16 30 04/08/18 19:00 90 24 138/88 (105) 100 Mechanical Ventilator 30 04/08/18 18:00 83 24 169/93 (118) 100 Mechanical Ventilator 30 04/08/18 17:32 40 04/08/18 17:00 82 24 139/78 (98) 100 Mechanical Ventilator 40 04/08/18 16:40 40 04/08/18 16:30 79 24 148/82 (104) 100 Mechanical Ventilator 40 04/08/18 16:00 36.8 81 24 132/77 (95) 100 Mechanical Ventilator 40 04/08/18 15:58 100 Mechanical Ventilator 40 04/08/18 15:30 80 24 149/84 (105) 100 Mechanical Ventilator 40 04/08/18 15:01 83 24 155/95 (115) 100 Mechanical Ventilator 40 04/08/18 14:19 50 04/08/18 14:06 143/98 04/08/18 14:01 159/100 04/08/18 14:01 95 24 159/100 (119) 99 Mechanical Ventilator 50 04/08/18 13:56 92 24 160/97 100 Mechanical Ventilator 04/08/18 13:51 154/95 04/08/18 13:46 161/93 04/08/18 13:41 97 24 158/105 100 04/08/18 13:36 165/91 04/08/18 13:31 96 24 162/96 100 Mechanical Ventilator 04/08/18 13:27 154/104 04/08/18 13:27 99 Mechanical Ventilator 04/08/18 13:21 168/99 04/08/18 13:16 94 24 149/92 100 Mechanical Ventilator 04/08/18 13:11 155/99 04/08/18 13:09 36.4 114 16 146/104 100 Room Air 04/08/18 13:04 179/110 04/08/18 13:01 108 24 100 Mechanical Ventilator 04/08/18 12:51 189/118 04/08/18 12:46 110 24 191/120 100 Mechanical Ventilator 04/08/18 12:31 109 24 100 Mechanical Ventilator 04/08/18 12:29 109 24 185/120 04/08/18 12:15 50 04/08/18 11:55 102 04/08/18 11:41 114 31 146/104 87 Room Air Laboratory Results: Last 24 Hours Test 04/08/18 12:41 04/08/18 12:50 04/08/18 12:55 04/08/18 13:01 Bedside Lactic Acid Venous 3.69 mmol/L White Blood Count 5.54 K/uL Red Blood Count 4.32 M/uL Hemoglobin 14.1 g/dL Hematocrit 43.1 % Mean Corpuscular Volume 99.8 fL Mean Corpuscular Hemoglobin 32.6 pg Mean Corpuscular Hemoglobin Concent 32.7 g/dl Platelet Count 155 K/uL Mean Platelet Volume 9.2 fL Neutrophils (%) (Auto) 55.6 % Lymphocytes (%) (Auto) 31.4 % Monocytes (%) (Auto) 8.3 % Eosinophils (%) (Auto) 4.2 % Basophils (%) (Auto) 0.5 % Neutrophils # (Auto) 3.08 K/uL Lymphocytes # (Auto) 1.74 K/uL Monocytes # (Auto) 0.46 K/uL Eosinophils # (Auto) 0.23 K/uL Basophils # (Auto) 0.03 K/uL RDW Standard Deviation 55.2 fL RDW Coefficient of Variation 15.2 % Immature Granulocyte % (Auto) 0.0 % Immature Granulocyte # (Auto) 0.00 K/uL Prothrombin Time 12.0 SECONDS Prothromb Time International Ratio 1.1 Activated Partial Thromboplast Time 25.9 SECONDS Partial Thromboplastin Ratio 1.0 Sodium Level 140 mmol/L Potassium Level 4.0 mmol/L Chloride Level 104 mmol/L Carbon Dioxide Level 24 mmol/L Anion Gap 12.0 mmol/L Blood Urea Nitrogen 4 mg/dl Creatinine 0.67 mg/dl Estimated GFR () 111.5 Estimated GFR (Non- 96.2 BUN/Creatinine Ratio 6.4 Random Glucose 110 mg/dl Calcium Level 8.7 mg/dl Phosphorus Level 4.7 mg/dl Magnesium Level 1.8 mg/dl Total Bilirubin 0.4 mg/dl Aspartate Amino Transf (AST/SGOT) 33 U/L Alanine Aminotransferase (ALT/SGPT) 17 U/L Alkaline Phosphatase 95 U/L Total Creatine Kinase 53 U/L Troponin I < 0.015 ng/ml Total Protein 7.5 gm/dl Albumin 3.4 gm/dl Globulin 4.1 gm/dl Albumin/Globulin Ratio 0.8 Thyroid Stimulating Hormone (TSH) 1.110 uIu/ml Chemistry Specimen Hemolysis Urine Color YELLOW Urine Appearance CLEAR Urine pH 5.0 Urine Specific [place] 1.016 Urine Protein NEG Urine Glucose (UA) NEG Urine Ketones NEG Urine Occult Blood NEG Urine Nitrite NEG Urine Bilirubin NEG Urine Urobilinogen NEG Urine Leukocyte Esterase NEG Urine Opiates Screen POS Urine Methadone, Qualitative NEG Urine Barbiturates POS Urine Phencyclidine (PCP) Level NEG Ur Amphetamine/Methamphetamine NEG MDMA (Ecstasy) Screen NEG Urine Benzodiazepines Screen POS Urine Cocaine Metabolite NEG Urine Marijuana (THC) NEG Venous Blood pH 7.38 Venous Blood Partial Pressure CO2 44 mmHg Venous Blood Partial Pressure O2 63 mmHg Venous Blood HCO3 26 mmol/L Venous Blood Oxygen Saturation 90.0 % Venous Blood Base Excess 0.1 mEq/L Ethyl Alcohol mg/dL 76.4 mg/dl Test 04/08/18 15:54 04/08/18 18:03 04/09/18 00:12 04/09/18 04:14 Lactic Acid Level 3.3 mmol/L Bedside Glucose 82 mg/dl 103 mg/dl White Blood Count 5.02 K/uL Red Blood Count 3.95 M/uL Hemoglobin 12.9 g/dL Hematocrit 38.9 % Mean Corpuscular Volume 98.5 fL Mean Corpuscular Hemoglobin 32.7 pg Mean Corpuscular Hemoglobin Concent 33.2 g/dl Platelet Count 140 K/uL Mean Platelet Volume 9.3 fL Neutrophils (%) (Auto) 67.6 % Lymphocytes (%) (Auto) 17.9 % Monocytes (%) (Auto) 12.5 % Eosinophils (%) (Auto) 1.4 % Basophils (%) (Auto) 0.4 % Neutrophils # (Auto) 3.39 K/uL Lymphocytes # (Auto) 0.90 K/uL Monocytes # (Auto) 0.63 K/uL Eosinophils # (Auto) 0.07 K/uL Basophils # (Auto) 0.02 K/uL RDW Standard Deviation 56.0 fL RDW Coefficient of Variation 15.5 % Immature Granulocyte % (Auto) 0.2 % Immature Granulocyte # (Auto) 0.01 K/uL Sodium Level 141 mmol/L Potassium Level 3.4 mmol/L Chloride Level 106 mmol/L Carbon Dioxide Level 25 mmol/L Anion Gap 10.0 mmol/L Blood Urea Nitrogen 5 mg/dl Creatinine 0.63 mg/dl Est Creatinine Clear Calc Drug Dose 98.4 ml/min Estimated GFR () 113.8 Estimated GFR (Non- 98.2 BUN/Creatinine Ratio 8.2 Random Glucose 131 mg/dl Calcium Level 8.2 mg/dl Phosphorus Level 4.6 mg/dl Magnesium Level 1.3 mg/dl Total Bilirubin 0.7 mg/dl Direct Bilirubin 0.3 mg/dl Aspartate Amino Transf (AST/SGOT) 31 U/L Alanine Aminotransferase (ALT/SGPT) 17 U/L Alkaline Phosphatase 84 U/L Total Protein 6.5 gm/dl Albumin 3.0 gm/dl Test 04/09/18 06:28 Bedside Glucose 113 mg/dl
[2018-04-09] MEDS ORDERED: NURSING VERBAL MED ORDER ONE ×3 (11:30→16:15)
[2018-04-09] MEDS ORDERED: METOPROLOL SUCC 50MG EXT REL TAB PO SCH (16:00)
[2018-04-09] MEDS: HYDROCODONE/ACETAMIN 5/325MG TAB PO PRN (16:24)
[2018-04-09] MEDS: FAMOTIDINE 20 MG TAB PO SCH (16:41)
[2018-04-09] MEDS ORDERED: EFFSR/75 PO (17:24)
[2018-04-09] MEDS ORDERED: [UNRECOGNIZED DRUG - REMARK] SCH (17:30)
[2018-04-09] MEDS ORDERED: LORAZEPAM 1 MG TAB PO PRN (17:30)
[2018-04-09] MEDS ORDERED: ONDANSETRON 4 MG TAB PO PRN (17:30)
[2018-04-09] MEDS ORDERED: SUMATRIPTAN SUCCINATE 50 MG TAB PO PRN (17:30)
[2018-04-09] MEDS: MIRTAZAPINE TAB 15 MG TAB PO SCH (20:37)
[2018-04-09] MEDS: BACLOFEN TAB 20 MG TAB PO SCH (20:37)
[2018-04-09] MEDS: HYDROCODONE/ACETAMINOPHEN 7.5/325MG TAB PO PRN (20:37)
--- NOTE | 2018-04-09 20:40 | Progress Note ---
Internal Med Progress Note Date of Service: Apr 09, 2018. Provider Documentation: SUBJECTIVE: Extubated earlier today, Still very lethargic, opens eyes to voice Denies of any chest pain or shortness of breath No fever or chills No arrhythmia , no episode of hypoxia OBJECTIVE: Vital Signs-as noted below Exam: General-chronically ill-appearing female, no apparent distress Eyes-clear nonicteric, pupils bilateral equal reactive to light ENT-moist oral mucosa Neck-no JVD, no carotid Lungs-no rales or wheeze Heart-regular S1 and S2 no murmur or gallop Abdomen-soft nontender, no organomegaly Extremities-no lower extremity edema, no rash or Neuro-no focal neurological deficit Lab data as noted below. ASSESSMENT & PLAN: ALTERED MENTAL STATUS/UNRESPONSIVENESS/METABOLIC ENCEPHALOPATHY Possible secondary to narcotic drug overdose/alcohol abuse -Patient was combative and agitated in the ER,was intubated for airway protection -Urine tox screen positive for opiates, barbiturates benzodiazepine -Appreciate input from ICU/underwater welder team -Patient is alert awake, able to follow commands - extubated earlier today -Respiratory status remains stable, no hypoxia -Stable to be transferred to telemetry HISTORY OF ALCOHOL ABUSE -Presented with unresponsiveness, alcohol level 76 -Given banana bag -Extubated today -On alcohol withdrawal protocol PROLONGED QTC On admission QTC prolonged 523 Monitor in telemetry Daily EKG Avoid QTC prolonging agents HISTORY OF SEIZURE DISORDER Follows with neurology with [facility] Last episode of seizure in February 2018 -No seizure activity noted when patient was unresponsive/obtunded -Continued with outpatient Keppra 500 mg twice daily HISTORY OF COPD Chest x-ray shows chronic bibasilar opacities -No episode of hypoxemia Was intubated initially for airway protection, as patient presented with obtundation due to drug overdose, became combative and agitated afterwards -Is continued with as needed nebulizer treatment and inhaler -At present with adequate oxygenation in room air HISTORY OF CATECHOLAMINE-INDUCED CARDIOMYOPATHY Echo 03/04/18: * Compared to previous study of 02/28/18: * Apical ballooning patterns has nearly resolved. * LV systolic function improved to 45-50% with mild global hypokinesis. Recent cardiac stress test 03/25/2018, shows left ventricular ejection fraction of 50% Kami scan Cardiolite study is negative for ischemia HISTORY OF CHRONIC PAIN Follows with pain clinic at [facility] Patient is on multiple narcotics: Fentanyl patch 25 MCG patch every 48 hours / hydrocodone/acetaminophen, as needed benzodiazepine Also found unresponsive on presentation In the ER patient was found to have two 25 MCG of fentanyl patches on-possibly caused obtundation/drug overdose On narcotics pain medications has been kept on hold And will need counseling/and tapering down of narcotic pain medication prior to discharge HISTORY OF SUBDURAL HEMATOMA -Status post craniotomy and evacuation in 2012 -CT chest head without contrast showed no acute change, no hemorrhage or acute CVA -Patient with change in mental status/obtundation secondary to drug overdose -No acute neurological event HISTORY OF ANXIETY/DEPRESSION: On Effexor will DC Cymbalta-prolonged QTC/multiple SSRI And Ativan as needed at home Kept on hold for increased lethargy CODE STATUS: Full code DVT PROPHYLAXIS Subcu heparin DISPOSITION Expected to be discharged home when medically stable Medicine follow-up with Dr. Manuelito Tripathi Vital Signs: Date Time Temp Pulse Resp B/P (MAP) Pulse Ox O2 Delivery O2 Flow Rate FiO2 04/11/18 14:51 36.3 78 20 167/91 (116) 99 04/11/18 13:52 74 153/89 (110) 04/11/18 11:16 36.3 70 20 173/96 (121) 99 04/11/18 08:00 Room Air 04/11/18 07:34 36.9 76 20 160/90 (113) 97 04/11/18 04:53 36.7 82 18 164/96 (118) 98 Room Air 04/11/18 00:00 Room Air 04/10/18 23:17 36.5 82 20 171/104 (126) 99 Room Air 04/10/18 20:00 96 Room Air 04/10/18 19:33 36.6 76 18 154/89 (110) 96 Room Air 04/10/18 18:30 147/82 (103) 04/10/18 17:07 178/93 (121) Lab Results: Results Past 24 Hours Test 04/10/18 19:59 04/11/18 06:20 04/11/18 06:21 04/11/18 07:21 Range/Units Bedside Glucose 106 101 70-90 mg/dl Sodium Level 138 136-145 mmol/L Potassium Level 3.4 3.5-5.1 mmol/L Chloride Level 103 98-107 mmol/L Carbon Dioxide Level 25 21-32 mmol/L Anion Gap 11.0 3-11 mmol/L Blood Urea Nitrogen 5 7-18 mg/dl Creatinine 0.60 0.60-1.20 mg/dl Est Creatinine Clear Calc Drug Dose 94.5 ml/min Estimated GFR () 115.6 Estimated GFR (Non- 99.8 BUN/Creatinine Ratio 8.2 10-20 Random Glucose 96 70-99 mg/dl Calcium Level 8.8 8.5-10.1 mg/dl Phosphorus Level 4.0 2.5-4.9 mg/dl Magnesium Level 1.7 1.8-2.4 mg/dl Total Bilirubin 1.1 0.2-1 mg/dl Direct Bilirubin 0.5 0-0.2 mg/dl Aspartate Amino Transf (AST/SGOT) 26 15-37 U/L Alanine Aminotransferase (ALT/SGPT) 16 12-78 U/L Alkaline Phosphatase 81 45-117 U/L Total Protein 6.9 6.4-8.2 gm/dl Albumin 3.1 3.4-5.0 gm/dl White Blood Count 3.20 4.8-10.8 K/uL Red Blood Count 4.00 4.2-5.4 M/uL Hemoglobin 12.9 12.0-16.0 g/dL Hematocrit 39.2 37-47 % Mean Corpuscular Volume 98.0 80-100 fL Mean Corpuscular Hemoglobin 32.3 25-34 pg Mean Corpuscular Hemoglobin Concent 32.9 32-36 g/dl Platelet Count 106 130-400 K/uL Mean Platelet Volume 9.3 7.4-10.4 fL Neutrophils (%) (Auto) 53.1 % Lymphocytes (%) (Auto) 32.2 % Monocytes (%) (Auto) 11.6 % Eosinophils (%) (Auto) 2.5 % Basophils (%) (Auto) 0.6 % Neutrophils # (Auto) 1.70 1.4-6.5 K/uL Lymphocytes # (Auto) 1.03 1.2-3.4 K/uL Monocytes # (Auto) 0.37 0.11-0.59 K/uL Eosinophils # (Auto) 0.08 0-0.5 K/uL Basophils # (Auto) 0.02 0-0.2 K/uL RDW Standard Deviation 55.1 36.4-46.3 fL RDW Coefficient of Variation 15.3 11.5-14.5 % Immature Granulocyte % (Auto) 0.0 % Immature Granulocyte # (Auto) 0.00 0.00-0.02 K/uL Test 04/11/18 11:39 Range/Units Bedside Glucose 89 70-90 mg/dl
[2018-04-09] MEDS ORDERED: DULOXETINE HCL 20 MG CAP PO SCH (21:00)
[2018-04-09] MEDS: LEVETIRACETAM 500 MG TAB PO SCH (21:47)
[2018-04-10] VITALS (10 sets, daily range): BP systolic 112–178; BP diastolic 58–104; PULSE 68–87; TEMP 36.4–37; O2SAT 91–99
[2018-04-10] MEDS: HYDROCODONE/ACETAMIN 5/325MG TAB PO PRN (05:44)
[2018-04-10] MEDS: FAMOTIDINE 20 MG TAB PO SCH ×2 (05:44→17:25)
[2018-04-10] MEDS: HEPARIN SOD 5000 UNIT/0.5 ML CARP SQ SCH ×3 (05:45→21:31)
[2018-04-10 05:49] LABS: BASO % 0.4 %; BASO ABS # 0.01 K/uL (0-0.2); EOS % 3.3 %; EOS ABS # 0.09 K/uL (0-0.5); HEMATOCRIT 38.1 % (37-47); HEMOGLOBIN 12.6 g/dL (12.0-16.0); LYMPH % 32.4 %; LYMPH ABS # 0.89 K/uL (1.2-3.4); MEAN CELL VOLUME 97.4 fL (80-100); MEAN CORPUSCULAR HEMOGLOBIN 32.2 pg (25-34); MEAN CORPUSCULAR HGB CONC 33.1 g/dl (32-36); MEAN PLATELET VOLUME 8.9 fL (7.4-10.4); MONO % 17.5 %; MONO ABS # 0.48 K/uL (0.11-0.59); NEUT % 46.4 %; NEUT ABS # 1.28 K/uL (1.4-6.5); PLATELET COUNT 101 K/uL (130-400); RED CELL DISTRIBUTION WIDTH CV 15.5 % (11.5-14.5); RED CELL DISTRIBUTION WIDTH SD 55.6 fL (36.4-46.3); WHITE BLOOD COUNT 2.75 K/uL (4.8-10.8)
[2018-04-10 06:30] LABS: ALBUMIN 2.7 gm/dl (3.4-5.0); CALCIUM 8.2 mg/dl (8.5-10.1); CREATININE 0.51 mg/dl (0.60-1.20); PHOSPHORUS 4.1 mg/dl (2.5-4.9); POTASSIUM 2.9 mmol/L (3.5-5.1); TOTAL PROTEIN 6.2 gm/dl (6.4-8.2)
[2018-04-10] MEDS: LEVETIRACETAM 500 MG TAB PO SCH ×2 (08:30→21:27)
[2018-04-10] MEDS: PANTOprazole SOD 40 MG TAB PO SCH (08:31)
[2018-04-10] MEDS: THIAMINE HCL 100 MG TAB PO SCH (08:31)
[2018-04-10] MEDS: VENLAFAXINE HCL XR 75 MG CAPXR PO SCH (08:31)
[2018-04-10] MEDS: METOPROLOL SUCC 50MG EXT REL TAB PO SCH (08:32)
[2018-04-10] MEDS: BACLOFEN TAB 20 MG TAB PO SCH ×4 (08:32→21:27)
[2018-04-10] MEDS ORDERED: THIAMINE HCL 100 MG TAB PO SCH (09:00)
[2018-04-10] MEDS ORDERED: POTASSIUM CHLORIDE 10 MEQ TABCR PO STA (09:20)
[2018-04-10] MEDS ORDERED: POTASSIUM CHLR 10 MEQ / WTR 100 ML IV STA (09:21)
[2018-04-10] MEDS: HYDROCODONE/ACETAMINOPHEN 7.5/325MG TAB PO PRN ×3 (12:55→21:28)
[2018-04-10] MEDS ORDERED: CLONIDINE HCL 0.1 MG TAB PO PRN (17:30)
[2018-04-10] MEDS ORDERED: CLONIDINE HCL 0.1 MG TAB PO ONE (17:30)
--- NOTE | 2018-04-10 20:46 | Progress Note ---
Internal Med Progress Note Date of Service: Apr 10, 2018. Provider Documentation: SUBJECTIVE: More awake and alert today, Still having balance issues while trying to get out of bed No complaint of shortness of breath, no cough, no fever or chills OBJECTIVE: Vital Signs-as noted below Exam: General-chronically ill-appearing female, no apparent distress Eyes-clear nonicteric, pupils bilateral equal reactive to light ENT-moist oral mucosa Neck-no JVD, no carotid Lungs-no rales or wheeze Heart-regular S1 and S2 no murmur or gallop Abdomen-soft nontender, no organomegaly Extremities-no lower extremity edema, no rash or Neuro-no focal neurological deficit Lab data as noted below. ASSESSMENT & PLAN: ALTERED MENTAL STATUS/UNRESPONSIVENESS/METABOLIC ENCEPHALOPATHY -Resolved, mental status gradually improved to baseline Presented with obtundation possible secondary to narcotic drug overdose/alcohol abuse -Patient was combative and agitated in the ER,was intubated for airway protection -Urine tox screen positive for opiates, barbiturates benzodiazepine -Appreciate input from ICU/demolition specialist team -Extubated on 04/09/2018 -Patient is alert awake, able to follow commands - -Respiratory status remains stable, no hypoxia HISTORY OF ALCOHOL ABUSE -Presented with unresponsiveness, alcohol level 76 -Given banana bag -No evidence of alcohol withdrawal Patient is counseled multiple times with alcohol, can cause dangerous level of sedation with combination of other narcotics pain medication PROLONGED QTC Improved QTC 491 today On admission QTC prolonged 523 Avoid QTC prolonging agents HISTORY OF SEIZURE DISORDER No seizure activity since admission Follows with neurology with [facility] Last episode of seizure in February 2018 -No seizure activity noted when patient was unresponsive/obtunded -Continued with outpatient Keppra 500 mg twice daily HISTORY OF COPD Chest x-ray shows chronic bibasilar opacities -No episode of hypoxemia Was intubated initially for airway protection, as patient presented with obtundation due to drug overdose, became combative and agitated afterwards -Is continued with as needed nebulizer treatment and inhaler -At present with adequate oxygenation in room air HISTORY OF CATECHOLAMINE-INDUCED CARDIOMYOPATHY Echo 03/04/18: * Compared to previous study of 02/28/18: * Apical ballooning patterns has nearly resolved. * LV systolic function improved to 45-50% with mild global hypokinesis. Recent cardiac stress test 03/25/2018, shows left ventricular ejection fraction of 50% Kami scan Cardiolite study is negative for ischemia HISTORY OF CHRONIC PAIN Follows with pain clinic at [facility] Patient is on multiple narcotics: Fentanyl patch 25 MCG patch every 48 hours / hydrocodone/acetaminophen, as needed benzodiazepine Also found unresponsive on presentation In the ER patient was found to have two 25 MCG of fentanyl patches on-possibly caused obtundation/drug overdose Fentanyl patch will be discontinued Patient is counseled to follow-up with pain clinic for further adjustment/taper of other chronic narcotics pain medication HISTORY OF SUBDURAL HEMATOMA -Status post craniotomy and evacuation in 2011 -CT chest head without contrast showed no acute change, no hemorrhage or acute CVA -Presented with change in mental status/obtundation secondary to drug overdose -Mental status improved to baseline -No acute neurological event HISTORY OF ANXIETY/DEPRESSION: On Effexor will DC Cymbalta-prolonged QTC/multiple SSRI And Ativan as needed at home Kept on hold for increased lethargy CODE STATUS: Full code DVT PROPHYLAXIS Subcu heparin DISPOSITION Expected to be discharged tomorrow 04/11/2018 Medicine follow-up with Dr. Manuelito Tripathi Vital Signs: Date Time Temp Pulse Resp B/P (MAP) Pulse Ox O2 Delivery O2 Flow Rate FiO2 04/11/18 14:51 36.3 78 20 167/91 (116) 99 04/11/18 13:52 74 153/89 (110) 04/11/18 11:16 36.3 70 20 173/96 (121) 99 04/11/18 08:00 Room Air 04/11/18 07:34 36.9 76 20 160/90 (113) 97 04/11/18 04:53 36.7 82 18 164/96 (118) 98 Room Air 04/11/18 00:00 Room Air 04/10/18 23:17 36.5 82 20 171/104 (126) 99 Room Air 04/10/18 20:00 96 Room Air 04/10/18 19:33 36.6 76 18 154/89 (110) 96 Room Air 04/10/18 18:30 147/82 (103) 04/10/18 17:07 178/93 (121) Lab Results: Results Past 24 Hours Test 04/10/18 19:59 04/11/18 06:20 04/11/18 06:21 04/11/18 07:21 Range/Units Bedside Glucose 106 101 70-90 mg/dl Sodium Level 138 136-145 mmol/L Potassium Level 3.4 3.5-5.1 mmol/L Chloride Level 103 98-107 mmol/L Carbon Dioxide Level 25 21-32 mmol/L Anion Gap 11.0 3-11 mmol/L Blood Urea Nitrogen 5 7-18 mg/dl Creatinine 0.60 0.60-1.20 mg/dl Est Creatinine Clear Calc Drug Dose 94.5 ml/min Estimated GFR () 115.6 Estimated GFR (Non- 99.8 BUN/Creatinine Ratio 8.2 10-20 Random Glucose 96 70-99 mg/dl Calcium Level 8.8 8.5-10.1 mg/dl Phosphorus Level 4.0 2.5-4.9 mg/dl Magnesium Level 1.7 1.8-2.4 mg/dl Total Bilirubin 1.1 0.2-1 mg/dl Direct Bilirubin 0.5 0-0.2 mg/dl Aspartate Amino Transf (AST/SGOT) 26 15-37 U/L Alanine Aminotransferase (ALT/SGPT) 16 12-78 U/L Alkaline Phosphatase 81 45-117 U/L Total Protein 6.9 6.4-8.2 gm/dl Albumin 3.1 3.4-5.0 gm/dl White Blood Count 3.20 4.8-10.8 K/uL Red Blood Count 4.00 4.2-5.4 M/uL Hemoglobin 12.9 12.0-16.0 g/dL Hematocrit 39.2 37-47 % Mean Corpuscular Volume 98.0 80-100 fL Mean Corpuscular Hemoglobin 32.3 25-34 pg Mean Corpuscular Hemoglobin Concent 32.9 32-36 g/dl Platelet Count 106 130-400 K/uL Mean Platelet Volume 9.3 7.4-10.4 fL Neutrophils (%) (Auto) 53.1 % Lymphocytes (%) (Auto) 32.2 % Monocytes (%) (Auto) 11.6 % Eosinophils (%) (Auto) 2.5 % Basophils (%) (Auto) 0.6 % Neutrophils # (Auto) 1.70 1.4-6.5 K/uL Lymphocytes # (Auto) 1.03 1.2-3.4 K/uL Monocytes # (Auto) 0.37 0.11-0.59 K/uL Eosinophils # (Auto) 0.08 0-0.5 K/uL Basophils # (Auto) 0.02 0-0.2 K/uL RDW Standard Deviation 55.1 36.4-46.3 fL RDW Coefficient of Variation 15.3 11.5-14.5 % Immature Granulocyte % (Auto) 0.0 % Immature Granulocyte # (Auto) 0.00 0.00-0.02 K/uL Test 04/11/18 11:39 Range/Units Bedside Glucose 89 70-90 mg/dl
[2018-04-10] MEDS: MIRTAZAPINE TAB 15 MG TAB PO SCH (21:27)
[2018-04-11] MEDS: KETOROLAC TROMETHAMINE 15 MG/ML VIAL IV PRN ×2 (00:04→09:03)
[2018-04-11 04:53] VITALS: BP 164/96; PULSE 82; TEMP 36.7; O2SAT 98
[2018-04-11] MEDS: HEPARIN SOD 5000 UNIT/0.5 ML CARP SQ SCH ×2 (05:21→13:16)
[2018-04-11] MEDS: FAMOTIDINE 20 MG TAB PO SCH (05:22)
[2018-04-11 06:31] LABS: BASO % 0.6 %; BASO ABS # 0.02 K/uL (0-0.2); EOS % 2.5 %; EOS ABS # 0.08 K/uL (0-0.5); HEMATOCRIT 39.2 % (37-47); HEMOGLOBIN 12.9 g/dL (12.0-16.0); LYMPH % 32.2 %; LYMPH ABS # 1.03 K/uL (1.2-3.4); MEAN CORPUSCULAR HEMOGLOBIN 32.3 pg (25-34); MEAN CORPUSCULAR HGB CONC 32.9 g/dl (32-36); MEAN PLATELET VOLUME 9.3 fL (7.4-10.4); MONO % 11.6 %; MONO ABS # 0.37 K/uL (0.11-0.59); NEUT % 53.1 %; PLATELET COUNT 106 K/uL (130-400); RED CELL DISTRIBUTION WIDTH CV 15.3 % (11.5-14.5); RED CELL DISTRIBUTION WIDTH SD 55.1 fL (36.4-46.3)
[2018-04-11 06:59] LABS: ALBUMIN 3.1 gm/dl (3.4-5.0); CALCIUM 8.8 mg/dl (8.5-10.1); CREATININE 0.6 mg/dl (0.60-1.20); POTASSIUM 3.4 mmol/L (3.5-5.1); TOTAL PROTEIN 6.9 gm/dl (6.4-8.2)
[2018-04-11 07:34] VITALS: BP 160/90; PULSE 76; TEMP 36.9; O2SAT 97
[2018-04-11] MEDS ORDERED: POTASSIUM CHLORIDE 20 MEQ TABCR PO SCH (09:00)
[2018-04-11] MEDS: THIAMINE HCL 100 MG TAB PO SCH (09:06)
[2018-04-11] MEDS: METOPROLOL SUCC 50MG EXT REL TAB PO SCH (09:06)
[2018-04-11] MEDS: LEVETIRACETAM 500 MG TAB PO SCH (09:07)
[2018-04-11] MEDS: PANTOprazole SOD 40 MG TAB PO SCH (09:07)
[2018-04-11] MEDS: VENLAFAXINE HCL XR 75 MG CAPXR PO SCH (09:07)
[2018-04-11] MEDS: BACLOFEN TAB 20 MG TAB PO SCH ×2 (09:08→12:36)
[2018-04-11 11:16] VITALS: BP 173/96; PULSE 70; TEMP 36.3; O2SAT 99
[2018-04-11] MEDS: HYDROCODONE/ACETAMINOPHEN 7.5/325MG TAB PO PRN (12:36)
[2018-04-11 13:52] VITALS: BP 153/89; PULSE 74
[2018-04-11 14:51] VITALS: BP 167/91; PULSE 78; TEMP 36.3; O2SAT 99
--- NOTE | 2018-04-11 16:21 | Discharge Instructions ---
Discharge Instructions Date of Service Apr 11, 2018. Admission Reason for Admission: Altered Mental Status Discharge Discharge Diagnosis / Problem: UNRESPONSIVENESS /POSSIBLE DRUG OVERDOSE Discharge Goals Goal(s): Decrease discomfort, Improve function, Increase independence, Improve disease control, Diagnostic testing Activity Recommendations Activity Limitations: resume your previous activity . Instructions / Follow-Up Instructions / Follow-Up HOSPITAL FOLLOW UP WITH 04/15/2018 10:10 AM Manuelito Caal DO [facility] DO NOT USE FENTANYL PATCH FOLLOW UP WITH PAIN CLINIC AT [facility] Current Hospital Diet Patient's current hospital diet: AHA Diet (Heart Healthy) Discharge Diet Recommended Diet: AHA Diet (Heart Healthy) Pending Studies Studies pending at discharge: no Medical Emergencies . Who to Call and When: Medical Emergencies: If at any time you feel your situation is an emergency, please call 911 immediately. . Non-Emergent Contact Non-Emergency issues call your: Primary Care Provider . . "Provider Documentation" section prepared by Rachel Holm. .
[2018-04-11 16:29] VITALS: BP 167/91; PULSE 78; TEMP 36.3; O2SAT 99
[2018-04-11] MEDS ORDERED: LRS20 PO (16:41)
--- NOTE | 2018-04-11 17:34 | Discharge Summary ---
Discharge Summary Date of Service Apr 11, 2018. Discharge Summary Admission Date: Apr 08, 2018 at 13:13 Discharge Date: Apr 11, 2018 Discharge Disposition: Home Principal Diagnosis: UNRESPONSIVENESS /POSSIBLE DRUG OVERDOSE Procedures: MECHANICAL INTUBATION Consultations: CRITICAL CARE Medication Reconciliation Continued Medications: Acamprosate Calcium (Acamprosate Calcium Dr) 333 Mg Tab 2 TABS PO TID Baclofen (Baclofen) 20 Mg Tab 20 MG PO QID PRN for Muscle Spasms for 30 Days Folic Acid (Folic Acid) 1 Mg Tab 1 MG PO QAM for 30 Days, #30 TAB Hydrocodone/Acetaminophen 7.5MG/325MG ([place] 7.5MG/325MG) Tab 1 TAB PO Q4 PRN for Pain, TAB PRN PAIN, MAX 4 TABS A DAY. Levetiracetam (Keppra Xr) 500 Mg Tab 500 MG PO BID IS ORDERED 750 MG BID, BUT TAKE 500 MG BID. Lorazepam (Lorazepam) 1 Mg Tab 1-2 MG PO Q6 PRN for Anxiety Metoprolol Succinate (Metoprolol Succinate ER) 50 Mg Tabcr 150 MG PO QAM for 30 Days, #90 EA Mirtazapine (Mirtazapine) 45 Mg Tab 45 MG PO HS Omeprazole (Prilosec) 20 Mg Capcr 20 MG PO DAILY, CAP Ondansetron (Ondansetron HCl) 4 Mg Tab 4 MG PO Q6 PRN for Nausea or Vomiting Sumatriptan Succinate (Imitrex) 50 Mg Tab 50 MG PO PRN, TAB Thiamine Hcl (B-1) 100 Mg Tab 100 MG PO DAILY for 30 Days, #30 EA Umeclidinium-Vilanterol (Anoro Ellipta 62.5-25 Mcg/INH) 1 Aer Aer 1 PUFF PO DAILY Venlafaxine HCl (Venlafaxine HCl ER) 75 Mg Capcr 75 MG PO DAILY Discontinued Medications: Duloxetine HCl (Duloxetine HCl) 20 Mg Cap 40 MG PO QPM Fentanyl (Fentanyl) 25 Mcg Tdsy 25 MCG TOP Q2D Admission Information HPI (per Admitting provider): Patient is a 58-year-old female with PMH seizure disorder, COPD, anxiety, depression, chronic pain on narcotic pain medication, alcohol abuse, history of alcohol withdrawal in past presented to the ER via EMS for altered mental status. It is reported that patient's family member found patient today sitting in chair not responding with her tongue sticking out and EMS was called. In route patient became apneic and was given Narcan 2 intranasally by EMS. It is reported upon arrival to ER patient was agitated and aggressive with dilated bilateral pupils. ER nurse reports patient was found to have two 25 mcg fentanyl patches on. Patient was given Ativan 2 mg and Haldol 10 mg with continued combativeness, was then intubated, is on propofol and is in restraints. It is reported by family members that she drinks beer daily. It is reported last night she drank unknown amount of beer and vodka. Patient had recent admission to [facility] 03/02/18-03/05/18 (patient signed out AMA) for catecholamine induced cardiomyopathy, DTs, Wernicke's encephalopathy, NEREYDA, fracture navicular bone of right foot. Physical Exam (per Admitting): General Appearance: WD/WN, + pertinent finding (Pt currently intubated and sedated) Head: normocephalic Eyes: + pertinent finding (pupils approx 4mm and reactive bilaterally) ENT: + pertinent finding (+ET tube) Neck: trachea midline Respiratory/Chest: + pertinent finding (intubated, noted symmetric chest rise, anterior breath sounds intact bilaterally) Cardiovascular: regular rate, rhythm (rate 98) Abdomen/GI: normal bowel sounds, soft Extremities/Musculoskelatal: normal capillary refill, + pertinent finding ( Right foot with ortho boot on) Neurologic/Psych: + pertinent finding (currently medically sedated) Skin: warm/dry Hospital Course awake and alert conversing appropriately no sign of confusion ambulating independently in room PHYSICAL EXAM Exam: General-chronically ill-appearing female, no apparent distress Eyes-clear nonicteric, pupils bilateral equal reactive to light ENT-moist oral mucosa Neck-no JVD, no carotid Lungs-no rales or wheeze Heart-regular S1 and S2 no murmur or gallop Abdomen-soft nontender, no organomegaly Extremities-no lower extremity edema, no rash or Neuro-no focal neurological deficit ASSESSMENT AND PLAN : ALTERED MENTAL STATUS/UNRESPONSIVENESS/METABOLIC ENCEPHALOPATHY -Resolved, mental status improved to baseline Presented with obtundation possible secondary to narcotic drug overdose/alcohol abuse -Patient was combative and agitated in the ER,was intubated for airway protection -Urine tox screen positive for opiates, barbiturates benzodiazepine -Appreciate input from ICU/hosiery knitter team -Extubated on 04/09/2018 -Patient is alert awake oriented x3 - -Respiratory status remains stable, no hypoxia HISTORY OF ALCOHOL ABUSE -Presented with unresponsiveness, alcohol level 76 -Given banana bag -No evidence of alcohol withdrawal Patient is counseled multiple times with alcohol, can cause dangerous level of sedation with combination of other narcotics pain medication PROLONGED QTC Improved QTC 491 today On admission QTC prolonged 523 Avoid QTC prolonging agents HISTORY OF SEIZURE DISORDER No seizure activity since admission Follows with neurology with [facility] Last episode of seizure in February 2018 -No seizure activity noted when patient was unresponsive/obtunded -Continued with outpatient Keppra 500 mg twice daily HISTORY OF COPD Chest x-ray shows chronic bibasilar opacities -No episode of hypoxemia Was intubated initially for airway protection, as patient presented with obtundation due to drug overdose, became combative and agitated afterwards -Is continued with as needed nebulizer treatment and inhaler -At present with adequate oxygenation in room air HISTORY OF CATECHOLAMINE-INDUCED CARDIOMYOPATHY Echo 03/04/18: * Compared to previous study of 02/28/18: * Apical ballooning patterns has nearly resolved. * LV systolic function improved to 45-50% with mild global hypokinesis. Recent cardiac stress test 03/25/2018, shows left ventricular ejection fraction of 50% Kami scan Cardiolite study is negative for ischemia HISTORY OF CHRONIC PAIN Follows with pain clinic at [facility] Patient is on multiple narcotics: Fentanyl patch 25 MCG patch every 48 hours / hydrocodone/acetaminophen, as needed benzodiazepine Also found unresponsive on presentation In the ER patient was found to have two 25 MCG of fentanyl patches on-possibly caused obtundation/drug overdose Fentanyl patch will be discontinued Patient is counseled to follow-up with pain clinic for further adjustment/taper of other chronic narcotics pain medication HISTORY OF SUBDURAL HEMATOMA -Status post craniotomy and evacuation in 2011 -CT chest head without contrast showed no acute change, no hemorrhage or acute CVA -Presented with change in mental status/obtundation secondary to drug overdose -Mental status improved to baseline -No acute neurological event HISTORY OF ANXIETY/DEPRESSION: On Effexor will DC Cymbalta-prolonged QTC/multiple SSRI And Ativan as needed at home Kept on hold for increased lethargy CODE STATUS: Full code DVT PROPHYLAXIS Subcu heparin DISPOSITION discharged home today Medicine follow-up with Dr. Manuelito Tripathi Total time spent on discharge = This includes examination of the patient, discharge planning, medication reconciliation, and communication with other providers. Discharge Instructions Discharge Instructions Date of Service Apr 11, 2018. Admission Reason for Admission: Altered Mental Status Discharge Discharge Diagnosis / Problem: UNRESPONSIVENESS /POSSIBLE DRUG OVERDOSE Discharge Goals Goal(s): Decrease discomfort, Improve function, Increase independence, Improve disease control, Diagnostic testing Activity Recommendations Activity Limitations: resume your previous activity . Instructions / Follow-Up Instructions / Follow-Up HOSPITAL FOLLOW UP WITH 04/15/2018 10:10 AM Manuelito Caal DO [facility] DO NOT USE FENTANYL PATCH FOLLOW UP WITH PAIN CLINIC AT [facility] Current Hospital Diet Patient's current hospital diet: AHA Diet (Heart Healthy) Discharge Diet Recommended Diet: AHA Diet (Heart Healthy) Pending Studies Studies pending at discharge: no Medical Emergencies . Who to Call and When: Medical Emergencies: If at any time you feel your situation is an emergency, please call 911 immediately. . Non-Emergent Contact Non-Emergency issues call your: Primary Care Provider . . "Provider Documentation" section prepared by Rachel Holm. .
== END 2018-04-11 16:50 | disposition home or self-care (01) | DRG 917 ==
LOC: EDBD 11:31 → C.EDC 11:32 → C.MSICU 13:13 → ENRESERV 13:23 → C.MED 04-09 20:21
PROVIDERS: ADMIT Family Medicine; ATTEND Hospitalist
PROC: 0T9B70Z Drainage of Bladder with Drainage Device, Via Natural or Artificial Opening (ICD-10-PCS; principal; 2018-04-08)
PROC: 0BH17EZ Insertion of Endotracheal Airway into Trachea, Via Natural or Artificial Opening (ICD-10-PCS; principal; 2018-04-08)
PROC: 5A1935Z Respiratory Ventilation, Less than 24 Consecutive Hours (ICD-10-PCS; 2018-04-08)
DX: T40.4X1A Poisoning by other synthetic narcotics, accidental (unintentional), initial encounter (principal); G92 Toxic encephalopathy; F10.221 Alcohol dependence with intoxication delirium; Y90.3 Blood alcohol level of 60-79 mg/100 ml; I45.81 Long QT syndrome; G40.909 Epilepsy, unspecified, not intractable, without status epilepticus; J44.9 Chronic obstructive pulmonary disease, unspecified; G89.29 Other chronic pain; F32.9 Major depressive disorder, single episode, unspecified; F41.9 Anxiety disorder, unspecified; Z86.69 Personal history of other diseases of the nervous system and sense organs; Z86.79 Personal history of other diseases of the circulatory system; Z87.891 Personal history of nicotine dependence; Z79.891 Long term (current) use of opiate analgesic; Z79.899 Other long term (current) drug therapy

== ENCOUNTER 2019-09-20 19:40 | Inpatient (IN) ==
[2019-09-20] MEDS ORDERED: ASPIRIN CHEW 324 MG PO STA (20:53)
--- NOTE | 2019-09-20 21:05 | XRay Report ---
XR chest 1V portable HISTORY: Atypical Chest Pain COMPARISON: Chest 07/07/2018. FINDINGS: No pneumothorax. No pleural effusions. Mild interstitial thickening at the left lung base h as almost completely resolved. No new focal lung consolidations to suggest pneumonia. No evidence for pulmonary edema. The heart is normal in size. Cervical spinal fusion hardware is again noted. IMPRESSION: No acute process. ACT 112: Negative or not required by law. Electronically signed by: Charan Miles M.D. 09/20/2019 9:04 PM
[2019-09-20 21:18] LABS: Basophils # (auto) 0.01 K/uL (0-0.2); Basophils % (auto) 0.2 %; Eosinophils # (auto) 0.12 K/uL (0-0.5); Eosinophils % (auto) 2.4 %; Hematocrit (blood only) 37.2 % (37-47); Hemoglobin 12.6 g/dL (12.0-16.0); Immature Granulocytes # (auto) 0.01 K/uL (0.00-0.02); Immature Granulocytes % (auto) 0.2 %; Lymphocytes # (auto) 1.79 K/uL (1.2-3.4); Lymphocytes % (auto) 35.7 %; Mean Corpuscular Hemoglobin 31.4 pg (25-34); Mean Corpuscular Hgb Conc 33.9 g/dL (32-36); Mean Corpuscular Volume 92.8 fL (80-100); Mean Platelet Volume 9.4 fL (7.4-10.4); Monocytes # (auto) 0.43 K/uL (0.11-0.59); Monocytes % (auto) 8.6 %; Neutrophils # (auto) 2.65 K/uL (1.4-6.5); Neutrophils % (auto) 52.9 %; Platelet Count 133 K/uL (130-400); RDW Coefficient of Variation 14.5 % (11.5-14.5); RDW Standard Deviation 49.7 fL (36.4-46.3); Red Blood Count 4.01 M/uL (4.2-5.4); White Blood Count 5.01 K/uL (4.8-10.8)
[2019-09-20 21:27] LABS: Alanine Aminotransferase 25 U/L (12-78); Albumin Level 3.5 gm/dl (3.4-5.0); Aspartate Aminotransferase 37 U/L (15-37); BUN Creatinine Ratio 6.2 (10-20); Blood Urea Nitrogen 5 mg/dl (7-18); Calcium 8.7 mg/dl (8.5-10.1); Carbon Dioxide 24 mmol/L (21-32); Chloride 91 mmol/L (98-107); Creatinine Clr Calc Pharmacy 85.2 ml/min; Est GFR (African American) 103.8; Est GFR (Non-African American) 89.5; Glucose 87 mg/dl (70-99); Lipase 214 U/L (73-393); Potassium 3.3 mmol/L (3.5-5.1); Sodium 127 mmol/L (136-145)
[2019-09-20 21:29] LABS: INR 1.2 (0.9-1.1); Partial Thromboplastin Time 27.6 Seconds (21.0-31.0); Prothrombin Time 11.9 Seconds (9.0-12.0)
[2019-09-20 21:32] LABS: Albumin Globulin Ratio 0.9 (0.9-2); Alkaline Phosphatase 92 U/L (45-117); Bilirubin,Total 0.7 mg/dl (0.2-1); Total Protein 7.5 gm/dl (6.4-8.2); Troponin I < 0.015 ng/ml (0-0.045)
[2019-09-20] MEDS ORDERED: SODIUM CHLORIDE 0.9% 1000ML 1,000 ML IV SCH (21:45)
--- NOTE | 2019-09-20 21:53 | Emergency Department Note ---
Entered by Sooc Mujica acting as a scribe for History of Present Illness General Chief complaint: Chest Pain Stated complaint: BACK PAIN Time Seen by Provider: 09/20/19 19:50 Source: patient History of Present Illness Onset (ago): hour(s) (4.5) Location: back Radiation: other (chest) Pain Consistency: + constant Maximum Pain Intensity: 8 Associated symptoms: + shortness of breath; no cough The patient is a 59 year old female who presents to the Emergency Room with complaints of constant back pain that began 4.5 hours prior to arrival. The pa tyler states that her pain radiates forward into her chest. She reports shortness of breath during this time. The patient denies cough. The patient states that she has appointments coming up with both pulmonology and cardiology about her left lung looking like ground glass and the increased pressure on the right side of her heart. The patient states that she is a previous smoker. Home Medications Home Medications Medication Instructions Recorded Confirmed Type Anoro Ellipta 1 ea INHALATION DAILY 09/20/19 09/20/19 History albuterol sulfate 2 inh INHALATION QID 09/20/19 09/20/19 History baclofen 20 mg PO TID 09/20/19 09/20/19 History buspirone 5 mg PO TID 09/20/19 09/20/19 History diazepam [Valium] 2 mg PO Q12 PRN 09/20/19 09/20/19 History duloxetine 120 mg PO DAILY 09/20/19 09/20/19 History folic acid 1 mg PO DAILY 09/20/19 09/20/19 History furosemide [Lasix] 40 mg PO DAILY 09/20/19 09/20/19 History gabapentin [Neurontin] 300 mg PO TID 09/20/19 09/20/19 History hydrocodone-acetaminophen 1 tab PO DAILY 09/20/19 09/20/19 History levetiracetam [Keppra XR] 750 mg PO BID 09/20/19 09/20/19 History metoprolol succinate [Toprol XL] 150 mg PO DAILY 09/20/19 09/20/19 History omeprazole 20 mg PO DAILY 09/20/19 09/20/19 History ondansetron HCl 4 mg PO Q6H PRN 09/20/19 09/20/19 History sumatriptan succinate [Imitrex] 0 mg PO .COMPLEX 09/20/19 09/20/19 History thiamine HCl (vitamin B1) [Vitamin 100 mg PO DAILY 09/20/19 09/20/19 History B-1] triamcinolone acetonide 1 applic TOPICAL BID PRN 09/20/19 09/20/19 History Allergies Allergy/AdvReac Type Severity Reaction Status Date / Time No Known Allergies Allergy Mild Verified 09/21/19 11:58 Past Med/Surg History Medical History Alcohol withdrawal delirium (Resolved) Alcohol withdrawal syndrome (Resolved 08/22/11) Alcoholism Chronic diarrhea of unknown origin (Chronic 07/18/11) Chronic pancreatitis COPD (chronic obstructive pulmonary disease) 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/11) History of craniotomy (Resolved) History of tobacco abuse Hypokalemia Hyponatremia Nonischemic cardiomyopathy Seizure disorder (Chronic 05/16/12) Severe pulmonary arterial systolic hypertension Subdural hemorrhage (Resolved 05/16/12) Upper gastrointestinal hemorrhage (Resolved 07/18/11) Uterine leiomyoma (Chronic 07/18/11) Surgical History History of arthroscopic procedure on shoulder History of onel hole surgery History of carpal tunnel surgery History of cholecystectomy (Resolved) History of hysterectomy (Resolved) S/P cervical spinal fusion Social History Preferred Language: Korean Communication Ability: Effective Stock Clerk Required: No Beliefs That Will Affect Care: None Current Living Situation: Family Feels Safe at Home: Yes Smoking Status: Unknown if ever smoked Hx Alcohol Use: No Hx Substance Use: No Review of Systems See HPI for pertinent positives & negatives. and A total of 10 systems reviewed and were otherwise negative Physical Exam Vital Signs Vital Signs - 24 hr 09/20/19 19:46 09/20/19 21:10 09/20/19 21:11 Temperature 36.7 C Temperature Source Oral Pulse Rate 74 Pulse Rate [Right Finger] 67 Pulse Rhythm Regular Pulse Rhythm [Right Finger] Regular Pulse Strength Normal Pulse Strength [Right Finger] Normal Respiratory Rate 20 20 Respiratory Effort / Characteristics Non-Labored Spontaneous Non-Labored Spontaneous Respiratory Depth Normal Normal Respiratory Pattern Regular Regular Blood Pressure 120/76 Blood Pressure [Right Arm] 124/74 Blood Pressure Mean 90 Blood Pressure Mean [Right Arm] 90 Blood Pressure Position Sitting Pulse Oximetry 96 98 98 Oxygen Delivery Method Room Air Room Air Room Air Sepsis Recent Fever Within 48 Hours No Sepsis Action Taken by Nursing No Action Required Pulse Oximetry Post Tiitration 98 Vital signs reviewed. General: Chronically ill-appearing 59 year old female, in no significant distress. HEENT: No scleral icterus, PERRLA, neck supple. Atraumatic. Cardiovascular: Regular rate and rhythm, no extra sounds. Pulmonary: Faint crackles bilaterally, normal work of breathing. Abdomen: Soft, nontender, nondistended, positive bowel sounds. Musculoskeletal: Atraumatic, no peripheral edema. Neurologic: Patient awake alert and oriented x 3 Skin: Warm, dry, no rash Course Course 1952: Past medical records reviewed. The patient was evaluated in room B3B. A complete history and physical exam was performed. 2148: I [facility] the [facility] who accepts the patient for further evaluation. Administered Medications Discontinued Medications Hydrocodone Bitart/Acetaminophen ([place] 10/325) 1 tab PO DAILY [facility] Stop: 10/05/19 08:59 Last Admin: 09/22/19 08:15 Dose: 1 tab Documented by: [id number] Admin: 09/21/19 08:36 Dose: 1 tab Documented by: [id number] Albuterol (Ventolin Hfa) 2 puffs INH QID [facility] Stop: 10/21/19 08:59 Last Admin: 09/22/19 12:28 Dose: 2 puffs Documented by: [id number] Admin: 09/22/19 08:15 Dose: 2 puffs Documented by: [id number] Admin: 09/21/19 19:51 Dose: 2 puffs Documented by: [id number] Admin: 09/21/19 16:24 Dose: Not Given Documented by: [id number] Admin: 09/21/19 14:04 Dose: 2 puffs Documented by: [id number] Admin: 09/21/19 08:33 Dose: 2 puffs Documented by: [id number] Aspirin (Aspirin) 324 mg PO NOW [facility] Stop: 09/20/19 20:54 Last Admin: 09/20/19 21:10 Dose: 324 mg Documented by: [id number] Aspirin (Ecotrin Ectab) 81 mg PO QAM [facility] Stop: 10/21/19 08:59 Last Admin: 09/22/19 08:10 Dose: 81 mg Documented by: [id number] Admin: 09/21/19 08:31 Dose: 81 mg Documented by: [id number] Baclofen (Lioresal) 20 mg PO TID [facility] Stop: 10/21/19 08:59 Last Admin: 09/22/19 13:29 Dose: 20 mg Documented by: [id number] Admin: 09/22/19 08:10 Dose: 20 mg Documented by: [id number] Admin: 09/21/19 19:52 Dose: 20 mg Documented by: [id number] Admin: 09/21/19 14:04 Dose: 20 mg Documented by: [id number] Admin: 09/21/19 08:32 Dose: 20 mg Documented by: [id number] Buspirone HCl (Buspar) 5 mg PO TID [facility] Stop: 10/21/19 08:59 Last Admin: 09/22/19 13:29 Dose: 5 mg Documented by: [id number] Admin: 09/22/19 08:09 Dose: 5 mg Documented by: [id number] Admin: 09/21/19 19:51 Dose: 5 mg Documented by: [id number] Admin: 09/21/19 14:04 Dose: 5 mg Documented by: [id number] Admin: 09/21/19 08:33 Dose: 5 mg Documented by: [id number] Diazepam (Valium) 2 mg PO Q12 PRN PRN Reason: Anxiety Stop: 10/20/19 23:29 Last Admin: 09/21/19 23:50 Dose: 2 mg Documented by: [id number] Admin: 09/21/19 10:31 Dose: 2 mg Documented by: [id number] Duloxetine HCl (Cymbalta) 60 mg PO DAILY [facility] Stop: 10/21/19 08:59 Last Admin: 09/22/19 08:09 Dose: 60 mg Documented by: [id number] Admin: 09/21/19 08:32 Dose: 60 mg Documented by: [id number] Folic Acid (Folvite) 1 mg PO QAM [facility] Stop: 10/21/19 08:59 Last Admin: 09/22/19 08:10 Dose: 1 mg Documented by: [id number] Admin: 09/21/19 08:32 Dose: 1 mg Documented by: [id number] Furosemide (Lasix) 40 mg PO DAILY [facility] Stop: 10/21/19 08:59 Last Admin: 09/22/19 08:09 Dose: 40 mg Documented by: [id number] Admin: 09/21/19 08:32 Dose: 40 mg Documented by: [id number] Gabapentin (Neurontin) 1,200 mg PO TODAY@0000 [facility] Stop: 09/21/19 00:01 Last Admin: 09/21/19 00:34 Dose: 1,200 mg Documented by: [id number] Gabapentin (Neurontin) 600 mg PO Q6H [facility] Stop: 09/21/19 12:01 Last Admin: 09/21/19 11:13 Dose: 600 mg Documented by: [id number] Admin: 09/21/19 05:40 Dose: 600 mg Documented by: [id number] Gabapentin (Neurontin) 600 mg PO Q8H [facility] Stop: 09/22/19 12:01 Last Admin: 09/22/19 11:06 Dose: 600 mg Documented by: [id number] Admin: 09/22/19 03:51 Dose: 600 mg Documented by: [id number] Admin: 09/21/19 19:52 Dose: 600 mg Documented by: [id number] Sodium Chloride (Nss 1000ml) 1,000 mls @ 125 mls/hr IV .Q8H [facility] Stop: 10/20/19 21:44 Last Infusion: 09/20/19 23:30 Dose: 0 mls/hr Documented by: [id number] Admin: 09/20/19 22:05 Dose: 125 mls/hr Documented by: [id number] Multivitamins 10 ml/ Thiamine HCl 100 mg/ Folic Acid 1 mg/Sodium Chloride 1,011.2 mls @ 500 mls/hr IV .Q2H2M ONE Stop: 09/21/19 01:31 Last Infusion: 09/21/19 02:43 Dose: 0 mls/hr Documented by: [id number] Admin: 09/21/19 00:34 Dose: 500 mls/hr Documented by: [id number] Levetiracetam (Keppra) 750 mg PO BID [facility] Stop: 10/21/19 08:59 Last Admin: 09/22/19 08:09 Dose: 750 mg Documented by: [id number] Admin: 09/21/19 19:52 Dose: 750 mg Documented by: [id number] Admin: 09/21/19 08:32 Dose: 750 mg Documented by: [id number] Lidocaine HCl (Xylocaine 2%) Confirm Administered Dose 4 ml INFIL .STK-MED ONE Stop: 09/21/19 12:20 Last Admin: 09/21/19 14:12 Dose: Not Given Documented by: [id number] Metoprolol Succinate (Toprol Xl) 150 mg PO DAILY [facility] Stop: 10/21/19 08:59 Last Admin: 09/22/19 08:08 Dose: 150 mg Documented by: [id number] Admin: 09/21/19 08:33 Dose: 150 mg Documented by: [id number] Morphine Sulfate (Morphine Sulfate) 3 mg IV NOW STA Stop: 09/20/19 23:44 Last Admin: 09/20/19 23:52 Dose: 3 mg Documented by: [id number] Morphine Sulfate (Morphine Sulfate) 3 mg IV NOW STA Stop: 09/21/19 08:25 Last Admin: 09/21/19 09:16 Dose: Not Given Documented by: [id number] Morphine Sulfate (Morphine Sulfate) Confirm Administered Dose 2 mg .ROUTE .STK- MED ONE Stop: 09/21/19 08:27 Last Admin: 09/21/19 08:29 Dose: 2 mg Documented by: [id number] Morphine Sulfate (Morphine Sulfate) 2 mg IV NOW STA Stop: 09/21/19 08:25 Last Admin: 09/21/19 08:59 Dose: Not Given Documented by: [id number] Pantoprazole Sodium (Protonix) 40 mg PO DAILY [facility] Stop: 10/21/19 08:59 Last Admin: 09/22/19 08:10 Dose: 40 mg Documented by: [id number] Admin: 09/21/19 08:32 Dose: 40 mg Documented by: [id number] Potassium Chloride (Klor-Con M20) 40 meq PO NOW STA Stop: 09/21/19 08:25 Last Admin: 09/21/19 08:59 Dose: 40 meq Documented by: [id number] Propofol (Diprivan) Confirm Administered Dose 200 mg IV .STK-MED ONE Stop: 09/21/19 12:20 Last Admin: 09/21/19 14:12 Dose: Not Given Documented by: [id number] Thiamine HCl (Vitamin B-1) 100 mg PO DAILY [facility] Stop: 10/21/19 08:59 Last Admin: 09/22/19 08:08 Dose: 100 mg Documented by: [id number] Admin: 09/21/19 08:32 Dose: 100 mg Documented by: [id number] Medical Decision Making Differential Diagnosis Differential diagnoses includes but is not limited to acute coronary syndrome, myocardial infarction, pericarditis, pulmonary embolus, aortic dissection, pneumonia, pneumothorax, musculoskeletal, shingles, esophageal. Medical Records Attestation: I reviewed the patient's medical records. Home Medications Current Medication List: was personally reviewed by me Laboratory Data Attestation: I reviewed the patient's lab results. Result diagrams: 09/21/19 05:30 09/21/19 11:16 Lab Results 09/20/19 09/20/19 09/20/19 Range/Units 20:54 20:54 20:54 WBC 5.01 (4.8-10.8) K/uL RBC 4.01 L (4.2-5.4) M/uL Hgb 12.6 (12.0-16.0) g/dL Hct 37.2 (37-47) % MCV 92.8 (80-100) fL MCH 31.4 (25-34) pg MCHC 33.9 (32-36) g/dL RDW Std Deviation 49.7 H (36.4-46.3) fL RDW Coeff of [place] 14.5 (11.5-14.5) % Plt Count 133 (130-400) K/uL MPV 9.4 (7.4-10.4) fL Immature Gran % (Auto) 0.2 % Neut % (Auto) 52.9 % Lymph % (Auto) 35.7 % Reeves % (Auto) 8.6 % Eos % (Auto) 2.4 % Baso % (Auto) 0.2 % Immature Gran # (Auto) 0.01 (0.00-0.02) K/uL Neut # (Auto) 2.65 (1.4-6.5) K/uL Lymph # (Auto) 1.79 (1.2-3.4) K/uL Reeves # (Auto) 0.43 (0.11-0.59) K/uL Eos # (Auto) 0.12 (0-0.5) K/uL Baso # (Auto) 0.01 (0-0.2) K/uL PT 11.9 (9.0-12.0) Seconds INR 1.2 H (0.9-1.1) APTT 27.6 (21.0-31.0) Seconds PTT Ratio 1.0 Sodium 127 L (136-145) mmol/L Potassium 3.3 L (3.5-5.1) mmol/L Chloride 91 L (98-107) mmol/L Carbon Dioxide 24 (21-32) mmol/L Anion Gap 12.0 H (3-11) BUN 5 L (7-18) mg/dl Creatinine 0.73 (0.6-1.2) mg/dl Est Cr Clr Drug Dosing 85.2 ml/min Est GFR ( Amer) 103.8 Est GFR (Non-Af Amer) 89.5 BUN/Creatinine Ratio 6.2 L (10-20) Glucose 87 (70-99) mg/dl Calcium 8.7 (8.5-10.1) mg/dl Total Bilirubin 0.7 (0.2-1) mg/dl AST 37 (15-37) U/L ALT 25 (12-78) U/L Alkaline Phosphatase 92 (45-117) U/L Troponin I < 0.015 (0-0.045) ng/ml Total Protein 7.5 (6.4-8.2) gm/dl Albumin 3.5 (3.4-5.0) gm/dl Globulin 4.0 (2.5-4.0) gm/dl Albumin/Globulin Ratio 0.9 (0.9-2) Lipase 214 (73-393) U/L Imaging Data Radiologist's Impression: Radiology results as stated below per my review and the radiologist's interpretation: XR chest 1V portable HISTORY: Atypical Chest Pain COMPARISON: Chest 07/07/2018. FINDINGS: No pneumothorax. No pleural effusions. Mild interstitial thickening at the left lung base has almost completely resolved. No new focal lung con solidations to suggest pneumonia. No evidence for pulmonary edema. The heart is normal in size. Cervical spinal fusion hardware is again noted. IMPRESSION: No acute process. ACT 112: Negative or not required by law. Electronically signed by: Charan Miles M.D. 09/20/2019 9:04 PM ECG Data Attestation: I personally reviewed and interpreted this ECG as follows: Indication: + chest pain Rate (beats per minute): 74 Rhythm: + normal sinus ECG Intervals/blocks: + Prolonged QT (461) ECG Findings: + Other (poor baseline; diffuse T wave flattening; low voltage; previous septal infarct ); no PACs and no PVCs Additional Comments: An order for cardiac monitoring was placed. The patient is found to be in a normal sinus rhythm at approximately 65 to 70 bpm. Blood Pressure Blood Pressure Findings: Elevated blood pressure Blood Pressure Disposition: further management by hospitalist LOC Narrative This patient was evaluated and appeared to be in no significant distress. IV access was obtained and laboratory work was drawn. Patient is anxious and somewhat tearful. Patient did receive aspirin. Chest x-ray was performed and reveals no evidence of acute pathology. There is improvement in the patient's left lung interstitial thickening. Patient's laboratory work reveals a negative troponin however her sodium is noted to be 127, which is new. IV normal saline solution was initiated. Given the patient's complaints of chest discomfort and her complicated past medical history and new hyponatremia, the patient was discussed with the hospitalist for further management. Impression & Plan Substernal chest pain, Hyponatremia Discharge Plan Visit Data *Final* Discharge Date/Time: 09/20/19 23:00 Chief Complaint: Chest Pain Stated Complaint: BACK PAIN ED Provider: Annamaria Guerin Discharge Problem: Substernal chest pain, Hyponatremia Patient Disposition: Admitted As Inpatient Condition: Good Discharge Instructions Interventions: ED Discharge Assessment Last Done: 09/20/19 23:00 The scribe's documentation has been prepared under my direction and personally reviewed by me in its entirety. I confirm that the note above accurately reflects all work, treatment, procedures, and medical decision making performed by me.
[2019-09-20] MEDS ORDERED: SUMAtriptan succinate 50 MG TAB PO PRN (23:30)
[2019-09-20] MEDS ORDERED: ATIVAN IV ALCOHOL WITHDRAWL IV PRN (23:30)
[2019-09-20] MEDS ORDERED: ONDANSETRON INJ 2 MG/ML 2 ML VIAL IV PRN (23:30)
[2019-09-20] MEDS ORDERED: ACETAMINOPHEN 325 MG TAB PO PRN (23:30)
[2019-09-20] MEDS ORDERED: MULTI-VITAMIN INFUSION 10 ML, THIAMINE HCL 100 MG, FOLIC ACID 1 MG in SODIUM CHLORIDE 0... IV ONE (23:30)
[2019-09-20] MEDS ORDERED: LORazepam 3 MG/6 ML VIAL IV PRN (23:30)
[2019-09-20] MEDS ORDERED: NITROGLYCERIN SL 0.4 MG/TAB TAB SL PRN (23:30)
[2019-09-20] MEDS ORDERED: GABAPENTIN 1200MG ALCOHOL WITHDRAWAL LOAD PO STA (23:30)
[2019-09-20] MEDS ORDERED: LORazepam 1 MG/2 ML VIAL IV PRN (23:30)
[2019-09-20] MEDS ORDERED: LORazepam 2 MG/4 ML VIAL IV PRN (23:30)
[2019-09-20] MEDS ORDERED: MoRPHine SULFATE 4 MG/ML 1 ML CARP\\VIAL IV STA (23:43)
[2019-09-21] MEDS ORDERED: GABAPENTIN 600 MG TAB PO SCH
--- NOTE | 2019-09-21 00:03 | History and Physical Report ---
DATE OF ADMISSION: 09/20/2019 CHIEF COMPLAINT: Chest pain. HISTORY OF PRESENT ILLNESS: This is a 59-year-old female with past medical history significant for alcohol-induced chronic pancreatitis, alcoholism, COPD, nonischemic cardiomyopathy, hypertension, alcoholic fatty liver, esophageal dysmotility, history of hepatitis C, history of traumatic brain injury, history of seizure disorder, history of thrombocytopenia, history of depression, psychosomatic seizure, polypharmacy, ground-glass opacity present on imaging of the lungs, who presents with chest pain. The patient states yesterday around 3:00 p.m., she noticed spasm in her back which radiated to the front of the chest, 8/10 in severity and no radiation, not associated with any sweating, no nausea, no dizziness. Still has the spasm going on. Received aspirin in the ER. On labs , troponin is negative, but sodium is 127. She had a recent echo done in June which showed normal EF, but pulmonary artery pressure was 60-70 mmHg with severe pulmonary hypertension and her lab work was done, which rheumatology workup showed SS-AB elevated and also rheumatoid factor elevated. The patient says she has an appointment with rheumatology tomorrow and also she has an upcoming appointment with cardiology in [place] for further procedures. She is also trying to taper off her narcotics, pain medication. She is only on hydrocodone/acetaminophen 10 mg tablet only once daily currently. She is also on Lasix 40 mg daily. She is not exactly sure about her psych medication, but she is on Cymbalta. She thinks she ight be on Seroquel, but it is not there in the Epic. Currently resting comfortably and hemodynamically stable. She is still drinking 6-12 cans of beer every day, trying to quit. She quit smoking 35 years ago. Currently lives with a partner. Ambulates with a cane. She cannot sleep flat because of the neck surgeries. Has shortness of breath on exertion. Denies any cough, no fever, no chills. Has some headache today. No blurred visions. No earache, no runny nose, no sore throat. Appetite is okay. No dysphagia, no abdominal pain. Normal bowel and bladder movements. No black stools or blood in the stools, no hematuria. Currently, no swelling in the legs, no rash. Hemodynamically stable. ALLERGIES: No known drug allergies. PAST MEDICAL HISTORY: As mentioned above. PAST SURGICAL HISTORY: Biopsy of the breast, carpal tunnel surgery, colonoscopy, EGD with endoscopic ultrasound, laparoscopic cholecystectomy, neck spine fusion surgery, onel hole drainage for subdural hematoma, shoulder arthroscopy, total abdominal hysterectomy with removal of tubes. MEDICATIONS: As per [facility], she is on oxygen 2 liters while sleeping, Valium 2 mg b.i.d. p.r.n., hydrocodone/acetaminophen 10/325 mg 1 tablet daily, to taper off, BuSpar 5 mg p.o. t.i.d., gabapentin 300 mg p.o. t.i.d., Lasix 40 mg p.o. daily, Zofran 4 mg every 6 hours p.r.n., baclofen 20 mg p.o. t.i.d., Cymbalta 60 mg 2 tablets daily, albuterol 2 puffs 4 times a day, thiamine 100 mg p.o. daily, metoprolol succinate 150 mg p.o. daily, folic acid 1 mg p.o. daily, Keppra XR 750 mg p.o. b.i.d., Anoro Ellipta 1 puff daily, omeprazole 20 mg p.o. daily, sumatriptan 50 mg p.r.n. FAMILY HISTORY: Significant for mother had glaucoma, hypertension; father has dementia. SOCIAL HISTORY: Former smoker, quit in 1983. Smoked 1 pack a day for 7 years. Alcohol, currently drinks 6-12 beers every day. No drug use. REVIEW OF SYSTEMS: As per HPI. Rest of review of systems negative. PHYSICAL EXAMINATION: GENERAL: The patient is of moderate build, not in acute distress. VITAL SIGNS: Temperature 36.7, pulse 64, respiratory rate 18, blood pressure 107/56, oxygen 95% on room air. HEENT: No pallor, no icterus. Pupils equal, round, reactive to light. NECK: No JVD, no neck masses, no carotid bruits. CARDIOVASCULAR: S1, S2 heard, regular rate and rhythm, no murmur, no gallop. RESPIRATORY SYSTEM: Normal AP diameter. No accessory muscle use. No wheezing, no crackles. ABDOMEN: Soft, bowel sounds present, nontender. No distention. CENTRAL NERVOUS SYSTEM: Cranial nerves II-XII grossly intact. Nonfocal. EXTREMITIES: No edema, no erythema. LABORATORY DATA: WBC 5, hemoglobin 12.6, hematocrit 37.2, platelets 133. PT 11.9, INR 1.2, APTT 27.6. Sodium 127, potassium 3.3, chloride 91, bicarbonate 24, BUN 5, creatinine 0.7, serum glucose 87, calcium 8.7, total bilirubin 0.7, AST 37, ALT 25, alkaline phosphatase 92. Troponin I less than 0.015. Lipase 214. IMAGING DATA Chest x-ray, no acute process. EKG: Normal sinus rhythm, rate of 74, nonspecific T-wave abnormalities seen. ASSESSMENT AND PLAN: This is a 59-year-old female who presents with chest pain. 1. Chest pain, rule out acute coronary syndrome. Initial workup was unremarkable. We will admit to tele floor. Serial cardiac enzymes, echocardiogram, n.p.o. after midnight. Consult cardiology for further recommendation. 2. History of nonischemic cardiomyopathy. Recent echo showed normal EF, but severe pulmonary hypertension, on Lasix 40 mg p.o. daily, which she will continue. Follow the echocardiogram. Await cardiology input. 3. Hyponatremia. Sodium of 127. Generally, her sodium levels are in 130s. Has history of alcoholism, could be from the beer potomania. She is also on antidepressant, could be SIADH. Will follow urine osmolality, serum osmolality, and urine sodium levels. Will get banana bag.Will follow the repeat labs in the a.m. If not improving, consider consulting nephrology. 4. Severe pulmonary hypertension. Recently had rheumatologic workup which showed SS-AB positive and rheumatoid factor positive. Follow up with rheumatology and also follow with cardiology and pulmonary. Await cardiology input. 5. Hypokalemia, will replace. 6. Alcoholism, still drinking 6-12 beers every day. Denies any withdrawal symptoms. Will place on withdrawal protocol with gabapentin, Ativan p.r.n. Monitor closely. We will give banana bag. Continue home thiamine and folic acid. 7. Depression. Continue home Cymbalta. on BuSpar. 8. History of hypertension. Continue Toprol-XL, withholding parameters. 9. History of hepatitis C. 10. History of seizure disorder, continue on Keppra. 11. Ground-glass opacity on imaging of the lung. Follow up with pulmonary. 12. Deep venous thrombosis prophylaxis, sequential compression devices for now. 13. Disposition: Observation in tele floor. Expect to discharge home and follow with family doctor and cardiology. Level 1 full code. MTDD
[2019-09-21] MEDS: GABAPENTIN 600 MG TAB PO SCH ×3 (05:40→19:52)
[2019-09-21 05:46] LABS: Basophils # (auto) 0.03 K/uL (0-0.2); Basophils % (auto) 0.7 %; Eosinophils # (auto) 0.14 K/uL (0-0.5); Eosinophils % (auto) 3.3 %; Hematocrit (blood only) 36.2 % (37-47); Hemoglobin 12.4 g/dL (12.0-16.0); Immature Granulocytes # (auto) 0.01 K/uL (0.00-0.02); Immature Granulocytes % (auto) 0.2 %; Lymphocytes # (auto) 1.77 K/uL (1.2-3.4); Lymphocytes % (auto) 41.2 %; Mean Corpuscular Hemoglobin 31.6 pg (25-34); Mean Corpuscular Hgb Conc 34.3 g/dL (32-36); Mean Corpuscular Volume 92.1 fL (80-100); Monocytes # (auto) 0.44 K/uL (0.11-0.59); Monocytes % (auto) 10.2 %; Neutrophils # (auto) 1.91 K/uL (1.4-6.5); Neutrophils % (auto) 44.4 %; Platelet Count 127 K/uL (130-400); RDW Coefficient of Variation 14.4 % (11.5-14.5); Red Blood Count 3.93 M/uL (4.2-5.4)
[2019-09-21 06:10] LABS: BUN Creatinine Ratio 8.4 (10-20); Blood Urea Nitrogen 5 mg/dl (7-18); Calcium 8.4 mg/dl (8.5-10.1); Carbon Dioxide 28 mmol/L (21-32); Chloride 101 mmol/L (98-107); Creatinine Clr Calc Pharmacy 102.5 ml/min; Est GFR (African American) 114.8; Est GFR (Non-African American) 99.1; Glucose 82 mg/dl (70-99); Magnesium 1.8 mg/dl (1.8-2.4); Potassium 3.2 mmol/L (3.5-5.1); Sodium 135 mmol/L (136-145)
[2019-09-21 06:17] LABS: Troponin I < 0.015 ng/ml (0-0.045)
[2019-09-21] MEDS ORDERED: MoRPHine SULFATE 4 MG/ML 1 ML CARP\\VIAL IV STA ×2 (08:24)
[2019-09-21] MEDS ORDERED: POTASSIUM CHLORIDE 20 MEQ TABCR PO STA (08:24)
[2019-09-21] MEDS ORDERED: MoRPHine SULFATE 2 MG/ML CARP ONE (08:26)
[2019-09-21] MEDS: ASPIRIN 81 MG ECTAB PO SCH (08:31)
[2019-09-21] MEDS: levETIRAcetam 250 MG TAB PO SCH ×2 (08:32→19:52)
[2019-09-21] MEDS: BACLOFEN 20 MG TAB PO SCH ×3 (08:32→19:52)
[2019-09-21] MEDS: FOLIC ACID 1 MG TAB PO SCH (08:32)
[2019-09-21] MEDS: PANTOprazole 40 MG TAB PO SCH (08:32)
[2019-09-21] MEDS: THIAMINE HCL 100 MG TAB PO SCH (08:32)
[2019-09-21] MEDS: DULOXETINE HCL 60 MG CAP PO SCH (08:32)
[2019-09-21] MEDS: FUROSEMIDE 40 MG TAB PO SCH (08:32)
[2019-09-21] MEDS: ALBUTEROL HFA 8 GM INHALER INH SCH ×4 (08:33→19:51)
[2019-09-21] MEDS: METOPROLOL SUCC 50MG EXT REL TAB PO SCH (08:33)
[2019-09-21] MEDS: HYDROCODONE/ACETAMINOPHEN 10/325 TAB PO SCH (08:36)
[2019-09-21 09:01] LABS: Folate (Folic Acid) > 24.00 ng/ml (>5.38); Vitamin B12 606 pg/ml (211-911)
--- NOTE | 2019-09-21 09:08 | Cardiology Consultation ---
Date of Consultation September 21, 2019 Assessment & Plan (1) Substernal chest pain: The patient's chest discomfort is very atypical. It is reproducible with palpation of the chest wall. Chest x-ray on presentation was without acute process. Troponin is negative x3. EKGs are without acute changes. Telemetry reveals sinus/sinus tachycardia with occasional premature atrial complexes. Echocardiogram is pending. General measures advised. (2) Nonischemic cardiomyopathy: Resolved via resting echocardiography in June 2009. This was felt to be catecholamine induced. Volume status is compensated. Recommend continuation of metoprolol succinate and furosemide as prescribed. (3) Severe pulmonary arterial systolic hypertension: Estimated pulmonary artery systolic pressure 60 to 70 mmHg via June 2019 resting echocardiogram. Recommend formal sleep study as well as follow-up with pulmonary medicine. (4) Hypokalemia: Recommend oral potassium supplementation. (5) Hyponatremia: As per hospitalist Supervising Physician Co-Signing Physician Notes Supervising Physician Attestation: I have personally performed a history and physical examination on the patient. I agree with the physician child welfare assistant's findings and plan as documented with the following additions. -Reproducible chest pain on my exam on palpation of the lower sternal margin. -Troponin negative x2, echocardiogram without regional wall motion abnormalities. -Moderate pulmonary hypertension noted on echocardiogram, however this is a chronic finding. -Although I do not think it is related to her current symptoms, evaluation/treatment for sleep apnea recommended as outpatient. Wilmer Larsen, DO History of Present Illness Reason for Consultation: Chest pain Requesting Physician: Rosalino Attending Physician: Ricardo History of Present Illness Mrs. Rivas is a pleasant 59-year-old female who is being seen at the request of Dr. Jerry. Reason for consultation is chest discomfort. The patient notes being or active of late, up and down stairs, lifting heavy boxes due to her pending move. Yesterday around 3:30 in the afternoon she developed pressure and pain sensation along the spinal cord that seem to radiate into the substernal chest. It was first noticed when at rest, while sitting. No associated symptoms. No aggravating or alleviating factors identified. The 8 out of 10 discomfort has waxed and waned somewhat though has been persistent to date and time. She describes trying to get off of the opioids, transitioning to gabapentin. Alcohol: 6 to 12 cans of beers per day. Tobacco: Remote cigarette use circa 35 years ago. The patient sister was present for my entire evaluation. Allergies Allergy/AdvReac Type Severity Reaction Status Date / Time No Known Allergies Allergy Mild Verified 09/21/19 11:58 Home Medications Home Medications Medication Instructions Recorded Confirmed Type albuterol sulfate 2 inh INHALATION QID 09/20/19 09/20/19 History baclofen 20 mg PO TID 09/20/19 09/20/19 History buspirone 5 mg PO TID 09/20/19 09/20/19 History diazepam [Valium] 2 mg PO Q12 PRN 09/20/19 09/20/19 History duloxetine 120 mg PO DAILY 09/20/19 09/20/19 History folic acid 1 mg PO DAILY 09/20/19 09/20/19 History furosemide [Lasix] 40 mg PO DAILY 09/20/19 09/20/19 History gabapentin [Neurontin] 300 mg PO TID 09/20/19 09/20/19 History hydrocodone-acetaminophen 1 tab PO DAILY 09/20/19 09/20/19 History levetiracetam [Keppra XR] 750 mg PO BID 09/20/19 09/20/19 History metoprolol succinate [Toprol XL] 150 mg PO DAILY 09/20/19 09/20/19 History omeprazole 20 mg PO DAILY 09/20/19 09/20/19 History ondansetron HCl 4 mg PO Q6H PRN 09/20/19 09/20/19 History sumatriptan succinate [Imitrex] 0 mg PO .COMPLEX 09/20/19 09/20/19 History thiamine HCl (vitamin B1) [Vitamin 100 mg PO DAILY 09/20/19 09/20/19 History B-1] triamcinolone acetonide 1 applic TOPICAL BID PRN 09/20/19 09/20/19 History umeclidinium-vilanterol [Anoro 1 ea INHALATION DAILY 09/20/19 09/20/19 History Ellipta] Patient History Medical History Alcohol withdrawal delirium (Resolved) Alcohol withdrawal syndrome (Resolved 08/22/11) Alcoholism Chronic diarrhea of unknown origin (Chronic 07/18/11) Chronic pancreatitis COPD (chronic obstructive pulmonary disease) 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/11) History of craniotomy (Resolved) History of tobacco abuse Hypokalemia Hyponatremia Nonischemic cardiomyopathy Seizure disorder (Chronic 05/16/12) Severe pulmonary arterial systolic hypertension Subdural hemorrhage (Resolved 05/16/12) Upper gastrointestinal hemorrhage (Resolved 07/18/11) Uterine leiomyoma (Chronic 07/18/11) Surgical History History of arthroscopic procedure on shoulder History of onle hole surgery History of carpal tunnel surgery History of cholecystectomy (Resolved) History of hysterectomy (Resolved) S/P cervical spinal fusion Social History Preferred Language: [place] Communication Ability: Effective In Home Sales Representative Required: No Beliefs That Will Affect Care: None Current Living Situation: Family Other Information That Helps Us Care for You: No Feels Safe at Home: Yes Safety Concerns: Feels Safe At This Time Smoking Status: Unknown if ever smoked Hx Alcohol Use: No Hx Substance Use: No Review of Systems Review of Systems: All systems reviewed & are unremarkable except as noted in HPI & below Constitutional: + malaise and + daytime sleepiness Ear, Nose, Mouth, Throat: + tinnitus, + dizziness and + hoarseness Respiratory: + cough, + dyspnea and + dyspnea on exertion; no hemoptysis and no pain on inspiration Cardiovascular: + chest pain, + chest pain at rest, + dyspnea on exertion, + palpitations and + edema; no chest pain with activity, no dyspnea at rest, no paroxysmal nocturnal dyspnea, no syncope and no claudication Gastrointestinal: no melena Genitourinary: no problem reported Musculoskeletal: + back pain, + neck pain, + stiffness, + limited range of motion, + muscle weakness and + body aches Integumentary: no rash Neurologic: + generalized weakness Psychiatric: + depression, + abnormal sleep pattern and + anxiety Endocrine: no polydipsia and no polyphagia Hematologic / Lymphatic: + easy bruising Physical Exam Physical Exam: General: A&Ox3. NAD. HEENT: Normocephalic. Atraumatic. PER. Conjunctiva pink, sclera clear. Neck: No carotid bruits. No JVD. No HJR. Chest: There is reproducible substernal chest discomfort with palpation of the chest wall Heart: RRR. Grade 1-2 systolic ejection murmur heard best at the lower left sternal border. No diastolic murmur. No rub. No gallop. Lungs: Diminished. Decreased. No abnormal breath sounds auscultated. Abdomen: +BS. Soft. Nontender. No masses or organomegaly. Extremities: Reveal edema. No clubbing. No cyanosis. Limited neurological examination is without focal deficits. Pulses: radial=2/4, posterior tibial=1/4. Results & Data Vital Signs (Past 12 Hours) Vital Signs Temp Pulse Pulse Pulse Resp BP BP 09/21/19 07:15 36.5 C 76 16 93/61 L 09/21/19 05:19 66 09/21/19 02:46 36.5 C 73 16 97/64 L 09/21/19 00:14 61 09/20/19 23:36 36.4 C L 68 18 103/65 09/20/19 23:30 72 09/20/19 23:00 65 18 133/81 09/20/19 22:01 64 18 107/56 L 09/20/19 21:11 09/20/19 21:10 67 20 124/74 Pulse Ox 09/21/19 07:15 94 09/21/19 05:19 09/21/19 02:46 90 09/21/19 00:14 09/20/19 23:36 96 09/20/19 23:30 09/20/19 23:00 93 09/20/19 22:01 93 09/20/19 21:11 98 09/20/19 21:10 98 Laboratory Results Laboratory Results - last 24 hr 09/20/19 09/20/19 09/20/19 20:54 20:54 20:54 WBC 5.01 RBC 4.01 L Hgb 12.6 Hct 37.2 MCV 92.8 MCH 31.4 MCHC 33.9 RDW Std Deviation 49.7 H RDW Coeff of [place] 14.5 Plt Count 133 MPV 9.4 Immature Gran % (Auto) 0.2 Neut % (Auto) 52.9 Lymph % (Auto) 35.7 [place] % (Auto) 8.6 Eos % (Auto) 2.4 Baso % (Auto) 0.2 Immature Gran # (Auto) 0.01 Neut # (Auto) 2.65 Lymph # (Auto) 1.79 [place] # (Auto) 0.43 Eos # (Auto) 0.12 Baso # (Auto) 0.01 PT 11.9 INR 1.2 H APTT 27.6 PTT Ratio 1.0 D-Dimer Sodium 127 L Potassium 3.3 L Chloride 91 L Carbon Dioxide 24 Anion Gap 12.0 H BUN 5 L Creatinine 0.73 Est Cr Clr Drug Dosing 85.2 Est GFR ( Amer) 103.8 Est GFR (Non-Af Amer) 89.5 BUN/Creatinine Ratio 6.2 L Glucose 87 Osmolality Calcium 8.7 Magnesium Total Bilirubin 0.7 AST 37 ALT 25 Alkaline Phosphatase 92 Troponin I < 0.015 Total Protein 7.5 Albumin 3.5 Globulin 4.0 Albumin/Globulin Ratio 0.9 Lipase 214 Vitamin B12 Folate Urine Osmolality Ur Random Sodium 09/21/19 09/21/19 09/21/19 00:02 00:02 02:46 WBC RBC Hgb Hct MCV MCH MCHC RDW Std Deviation RDW Coeff of [place] Plt Count MPV Immature Gran % (Auto) Neut % (Auto) Lymph % (Auto) [place] % (Auto) Eos % (Auto) Baso % (Auto) Immature Gran # (Auto) Neut # (Auto) Lymph # (Auto) [place] # (Auto) Eos # (Auto) Baso # (Auto) PT INR APTT PTT Ratio D-Dimer Sodium Potassium Chloride Carbon Dioxide Anion Gap BUN Creatinine Est Cr Clr Drug Dosing Est GFR ( Amer) Est GFR (Non-Af Amer) BUN/Creatinine Ratio Glucose Osmolality 285 Calcium Magnesium Total Bilirubin AST ALT Alkaline Phosphatase Troponin I < 0.015 Total Protein Albumin Globulin Albumin/Globulin Ratio Lipase Vitamin B12 Folate Urine Osmolality 83 L Ur Random Sodium 09/21/19 09/21/19 09/21/19 02:46 05:30 05:30 WBC 4.30 L RBC 3.93 L Hgb 12.4 Hct 36.2 L MCV 92.1 MCH 31.6 MCHC 34.3 RDW Std Deviation 49.0 H RDW Coeff of [place] 14.4 Plt Count 127 L MPV 9.0 Immature Gran % (Auto) 0.2 Neut % (Auto) 44.4 Lymph % (Auto) 41.2 [place] % (Auto) 10.2 Eos % (Auto) 3.3 Baso % (Auto) 0.7 Immature Gran # (Auto) 0.01 Neut # (Auto) 1.91 Lymph # (Auto) 1.77 [place] # (Auto) 0.44 Eos # (Auto) 0.14 Baso # (Auto) 0.03 PT INR APTT PTT Ratio D-Dimer Sodium Potassium Chloride Carbon Dioxide Anion Gap BUN Creatinine Est Cr Clr Drug Dosing Est GFR ( Amer) Est GFR (Non-Af Amer) BUN/Creatinine Ratio Glucose Osmolality Calcium Magnesium Total Bilirubin AST ALT Alkaline Phosphatase Troponin I Total Protein Albumin Globulin Albumin/Globulin Ratio Lipase Vitamin B12 606 Folate > 24.00 Urine Osmolality Ur Random Sodium 10 09/21/19 09/21/19 09/21/19 05:30 05:30 08:31 WBC RBC Hgb Hct MCV MCH MCHC RDW Std Deviation RDW Coeff of [place] Plt Count MPV Immature Gran % (Auto) Neut % (Auto) Lymph % (Auto) [place] % (Auto) Eos % (Auto) Baso % (Auto) Immature Gran # (Auto) Neut # (Auto) Lymph # (Auto) [place] # (Auto) Eos # (Auto) Baso # (Auto) PT INR APTT PTT Ratio D-Dimer Pending Sodium 135 L D Potassium 3.2 L Chloride 101 Carbon Dioxide 28 Anion Gap 6.0 BUN 5 L Creatinine 0.60 Est Cr Clr Drug Dosing 102.5 Est GFR ( Amer) 114.8 Est GFR (Non-Af Amer) 99.1 BUN/Creatinine Ratio 8.4 L Glucose 82 Osmolality Calcium 8.4 L Magnesium 1.8 Total Bilirubin AST ALT Alkaline Phosphatase Troponin I < 0.015 Cancelled Total Protein Albumin Globulin Albumin/Globulin Ratio Lipase Vitamin B12 Folate Urine Osmolality Ur Random Sodium
[2019-09-21 09:27] LABS: D Dimer 230 ug/L FEU (0-500)
[2019-09-21] MEDS ORDERED: ALUMINUM/MAGNESIUM SUSP 30 ML UDC PO PRN (09:41)
--- NOTE | 2019-09-21 09:44 | Hospitalist Progress Note ---
Date of Service delayed entry date of service noted below September 21, 2019 Assessment & Plan (1) Atypical chest pain: ASSESSMENT AND PLAN: This is a 59-year-old female who presents with chest pain. 1. Chest pain,ACS ruled out -- ekg: no signs of acute ischemia trop x 3: negative echo: pending Online Affiliate Marketing Manager consulted -- Esophagitis? PUD? (+) alcoholism, on ASA on Protonix PO GI consulted for EGD 2. History of nonischemic cardiomyopathy. -- per admitting MD: Recent echo showed normal EF, but severe pulmonary hypertension, on Lasix 40 mg p.o. daily -- echo consulted euvolemic 3. Hyponatremia resolved Sodium of 127 --> 135 monitor 4. Severe pulmonary hypertension. -- per admitting MD notes: Recently had rheumatologic workup which showed SS-AB positive and rheumatoid factor positive. Follow up with rheumatology and also follow with cardiology and pulmonary. -- echo ordered, cardiology consulted 5. Hypokalemia -- repleted 6. Alcoholism, still drinking 6-12 beers every day. -- no withdrawal symptoms noted -- on Alcohol withdrawal protocol - Gabapentin taper 7. Depression. Continue home Cymbalta. on BuSpar. 8. History of hypertension. Continue Toprol-XL, withholding parameters. 9. History of hepatitis C. 10. History of seizure disorder, continue on Keppra. 11. Ground-glass opacity on imaging of the lung. Follow up with pulmonary. 12. Deep venous thrombosis prophylaxis, sequential compression devices for now. 13. Disposition: Observation in tele floor. Expect to discharge home and follow with family doctor and cardiology. Level 1 full code. Subjective ff up for chest pain seen resting in bed, not in distress states chest pain is substernal- pressure, constant, non radiating, no shortness of breath relieved with IV Morphine 2mg no nausea/vomiting, no melena/hematochezia, (+) poor appetite, weight loss of 10lbs x 2 weeks no other symptoms Review of Systems Review of Systems: All systems reviewed & are unremarkable except as noted in HPI & below Physical Exam Physical Exam: General- oriented x 3, not in distress, speaks in sentences with no effort or accessory muscle use Head- atraumatic Eyes- PERRL, EOMI, anicteric ENT- oropharynx clear Neck- supple, no JVD, no adenopathy, no thyromegaly; carotids +2/2, no bruits appreciated Lungs- clear to auscultation bilaterally, no rales/wheezes Heart- normal rate, regular rhythm; no murmur, no gallop, no rub appreciated Abdomen- normal bowel sounds, nondistended, soft, nontender, no masses or hepatosplenomegaly Extremities- no pretibial edema, no calf tenderness; peripheral pulses intact Neuro- alert, oriented x 3; CN 2-12 grossly intact; motor 5/5 bilaterally;sensation 100% on all extremities; no other gross focal neurologic deficits Skin- warm & dry Results & Data ([facility]) Vital Signs (Past 12 Hours) Vital Signs Temp Pulse Pulse Pulse Resp BP BP 09/21/19 07:15 36.5 C 76 16 93/61 L 09/21/19 05:19 66 09/21/19 02:46 36.5 C 73 16 97/64 L 09/21/19 00:14 61 09/20/19 23:36 36.4 C L 68 18 103/65 09/20/19 23:30 72 09/20/19 23:00 65 18 133/81 09/20/19 22:01 64 18 107/56 L Pulse Ox 09/21/19 07:15 94 09/21/19 05:19 09/21/19 02:46 90 09/21/19 00:14 09/20/19 23:36 96 09/20/19 23:30 09/20/19 23:00 93 09/20/19 22:01 93 Laboratory Results all noted and reviewed
[2019-09-21] MEDS: diazePAM 2 MG TABLET PO PRN ×2 (10:31→23:50)
--- NOTE | 2019-09-21 11:51 | Electrocardiogram Report ---
Test Reason : Blood Pressure : / mmHG Vent. Rate : 074 BPM Atrial Rate : 074 BPM P-R Int : 192 ms QRS Dur : 078 ms QT Int : 416 ms P-R-T Axes : 045 -06 -09 degrees QTc Int : 461 ms Poor data quality, interpretation may be adversely affected Normal sinus rhythm Low voltage QRS Cannot rule out Septal infarct , age undetermined Abnormal ECG When compared with ECG of 10-JUL-2018 13:03, Septal infarct is now Present Inverted T waves have replaced nonspecific T wave abnormality in Inferior leads Confirmed by Bayron Rodriguez ([id number]) on 09/21/2019 11:51:13 AM Referred By: REFERRED SELF Confirmed By:Bayron Rodriguez
[2019-09-21 11:59] LABS: Potassium 3.8 mmol/L (3.5-5.1)
--- NOTE | 2019-09-21 12:03 | Anesthesiology Consultation ---
Date of Service September 21, 2019 Assessment & Plan Chart Review Chart Review: Acceptable Risk for Surgery and Patient NOT seen in Pre Admission Testing Consults Requested none History Surgery Operation Date: 09/21/19 16:30 Proposed Procedures p Esophagogastroduodenoscopy Dr Rolando Marshall Height/Weight Height: 5 ft 6 in Weight: 73.9 kg Allergies Allergy/AdvReac Type Severity Reaction Status Date / Time No Known Allergies Allergy Mild Verified 09/21/19 11:58 Medications Home Medications Medication Instructions Recorded Confirmed Last Taken albuterol sulfate 2 inh INHALATION QID 09/20/19 09/20/19 Unknown baclofen 20 mg PO TID 09/20/19 09/20/19 Unknown buspirone 5 mg PO TID 09/20/19 09/20/19 Unknown diazepam [Valium] 2 mg PO Q12 PRN 09/20/19 09/20/19 Unknown duloxetine 120 mg PO DAILY 09/20/19 09/20/19 Unknown folic acid 1 mg PO DAILY 09/20/19 09/20/19 Unknown furosemide [Lasix] 40 mg PO DAILY 09/20/19 09/20/19 Unknown gabapentin [Neurontin] 300 mg PO TID 09/20/19 09/20/19 Unknown hydrocodone-acetaminophen 1 tab PO DAILY 09/20/19 09/20/19 Unknown levetiracetam [Keppra XR] 750 mg PO BID 09/20/19 09/20/19 Unknown metoprolol succinate [Toprol XL] 150 mg PO DAILY 09/20/19 09/20/19 Unknown omeprazole 20 mg PO DAILY 09/20/19 09/20/19 Unknown ondansetron HCl 4 mg PO Q6H PRN 09/20/19 09/20/19 Unknown sumatriptan succinate [Imitrex] 0 mg PO .COMPLEX 09/20/19 09/20/19 Unknown thiamine HCl (vitamin B1) [Vitamin 100 mg PO DAILY 09/20/19 09/20/19 Unknown B-1] triamcinolone acetonide 1 applic TOPICAL BID PRN 09/20/19 09/20/19 Unknown umeclidinium-vilanterol [Anoro 1 ea INHALATION DAILY 09/20/19 09/20/19 Unknown Ellipta] Active Medications Generic Name Dose Route Start Last Admin Trade Name Freq PRN Reason Stop Dose Admin Hydrocodone Bitart/Acetaminophen 1 tab 09/21/19 09:00 09/21/19 08:36 [place] 10/325 PO 10/05/19 08:59 1 tab DAILY LAURA Administration Albuterol 2 puffs 09/21/19 09:00 09/21/19 08:33 Ventolin Hfa INH 10/21/19 08:59 2 puffs QID LAURA Administration Aspirin 81 mg 09/21/19 09:00 09/21/19 08:31 Ecotrin Ectab PO 10/21/19 08:59 81 mg QAM LAURA Administration Baclofen 20 mg 09/21/19 09:00 09/21/19 08:32 Lioresal PO 10/21/19 08:59 20 mg TID LAURA Administration Buspirone HCl 5 mg 09/21/19 09:00 09/21/19 08:33 Buspar PO 10/21/19 08:59 5 mg TID LAURA Administration Diazepam 2 mg 09/20/19 23:30 09/21/19 10:31 Valium PO 10/20/19 23:29 2 mg Q12 PRN Administration Anxiety Duloxetine HCl 60 mg 09/21/19 09:00 09/21/19 08:32 Cymbalta PO 10/21/19 08:59 60 mg DAILY LAURA Administration Folic Acid 1 mg 09/21/19 09:00 09/21/19 08:32 Folvite PO 10/21/19 08:59 1 mg QAM LAURA Administration Furosemide 40 mg 09/21/19 09:00 09/21/19 08:32 Lasix PO 10/21/19 08:59 40 mg DAILY LAURA Administration Levetiracetam 750 mg 09/21/19 09:00 09/21/19 08:32 Keppra PO 10/21/19 08:59 750 mg BID LAURA Administration Metoprolol Succinate 150 mg 09/21/19 09:00 09/21/19 08:33 Toprol Xl PO 10/21/19 08:59 150 mg DAILY LAURA Administration Pantoprazole Sodium 40 mg 09/21/19 09:00 09/21/19 08:32 Protonix PO 10/21/19 08:59 40 mg DAILY LAURA Administration Thiamine HCl 100 mg 09/21/19 09:00 09/21/19 08:32 Vitamin B-1 PO 10/21/19 08:59 100 mg DAILY LAURA Administration NPO Date Last Intake of Fluids: 09/20/19 Time Last Intake of Fluids: 23:59 Date Last Intake of Solids: 09/20/19 Time Last Intake of Solids: 23:59 Past Medical History Medical History Alcohol withdrawal delirium (Resolved) Alcohol withdrawal syndrome (Resolved 08/22/11) Alcoholism Chronic diarrhea of unknown origin (Chronic 07/18/11) Chronic pancreatitis COPD (chronic obstructive pulmonary disease) 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/11) History of craniotomy (Resolved) History of tobacco abuse Hypokalemia Hyponatremia Nonischemic cardiomyopathy Seizure disorder (Chronic 05/16/12) Severe pulmonary arterial systolic hypertension Subdural hemorrhage (Resolved 05/16/12) Upper gastrointestinal hemorrhage (Resolved 07/18/11) Uterine leiomyoma (Chronic 07/18/11) Past Surgical History Surgical History History of arthroscopic procedure on shoulder History of onel hole surgery History of carpal tunnel surgery History of cholecystectomy (Resolved) History of hysterectomy (Resolved) S/P cervical spinal fusion Social History Smoking Status: Unknown if ever smoked tobacco type: cigarettes Hx Alcohol Use: No alcohol intake frequency: holidays/special occasions only Hx Substance Use: No Physical Exam Vital Signs Last Vital Signs Temp 36.5 C 09/21/19 11:56 Pulse 64 09/21/19 11:56 Resp 16 09/21/19 11:56 BP 123/68 09/21/19 11:56 Pulse Ox 95 09/21/19 11:56 Testing Laboratory Results 09/21/19 05:30 09/21/19 11:16 PT 11.9 Seconds (9.0-12.0) 09/20/19 20:54 INR 1.2 (0.9-1.1) H 09/20/19 20:54 APTT 27.6 Seconds (21.0-31.0) 09/20/19 20:54
[2019-09-21] MEDS ORDERED: ATROPINE SULFATE 0.1 MG/ML 10ML SYR IV PRN ×2 (12:04→12:30)
[2019-09-21] MEDS ORDERED: ePHEDrine sulfate 50 MG/ML AMP IV PRN ×2 (12:04→12:30)
[2019-09-21 12:06] LABS: Troponin I < 0.015 ng/ml (0-0.045)
--- NOTE | 2019-09-21 12:15 | History & Physical Report ---
Date of Service September 21, 2019 Assessment & Plan (1) Atypical chest pain: stable for EGD History of Present Illness Chief Complaint: atypical chest pain Primary Care Provider: Manuelito Caal DO pt with atypical chest pain for EGD Allergies Allergy/AdvReac Type Severity Reaction Status Date / Time No Known Allergies Allergy Mild Verified 09/21/19 11:58 Home Medications Home Medications Medication Instructions Recorded Confirmed Type albuterol sulfate 2 inh INHALATION QID 09/20/19 09/20/19 History baclofen 20 mg PO TID 09/20/19 09/20/19 History buspirone 5 mg PO TID 09/20/19 09/20/19 History diazepam [Valium] 2 mg PO Q12 PRN 09/20/19 09/20/19 History duloxetine 120 mg PO DAILY 09/20/19 09/20/19 History folic acid 1 mg PO DAILY 09/20/19 09/20/19 History furosemide [Lasix] 40 mg PO DAILY 09/20/19 09/20/19 History gabapentin [Neurontin] 300 mg PO TID 09/20/19 09/20/19 History hydrocodone-acetaminophen 1 tab PO DAILY 09/20/19 09/20/19 History levetiracetam [Keppra XR] 750 mg PO BID 09/20/19 09/20/19 History metoprolol succinate [Toprol XL] 150 mg PO DAILY 09/20/19 09/20/19 History omeprazole 20 mg PO DAILY 09/20/19 09/20/19 History ondansetron HCl 4 mg PO Q6H PRN 09/20/19 09/20/19 History sumatriptan succinate [Imitrex] 0 mg PO .COMPLEX 09/20/19 09/20/19 History thiamine HCl (vitamin B1) [Vitamin 100 mg PO DAILY 09/20/19 09/20/19 History B-1] triamcinolone acetonide 1 applic TOPICAL BID PRN 09/20/19 09/20/19 History umeclidinium-vilanterol [Anoro 1 ea INHALATION DAILY 09/20/19 09/20/19 History Ellipta] Past Med/Surg History Medical History Alcohol withdrawal delirium (Resolved) Alcohol withdrawal syndrome (Resolved 08/22/11) Alcoholism Chronic diarrhea of unknown origin (Chronic 07/18/11) Chronic pancreatitis COPD (chronic obstructive pulmonary disease) 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/11) History of craniotomy (Resolved) History of tobacco abuse Hypokalemia Hyponatremia Nonischemic cardiomyopathy Seizure disorder (Chronic 05/16/12) Severe pulmonary arterial systolic hypertension Subdural hemorrhage (Resolved 05/16/12) Upper gastrointestinal hemorrhage (Resolved 07/18/11) Uterine leiomyoma (Chronic 07/18/11) Surgical History History of arthroscopic procedure on shoulder History of onel hole surgery History of carpal tunnel surgery History of cholecystectomy (Resolved) History of hysterectomy (Resolved) S/P cervical spinal fusion Social History Preferred Language: [place] Communication Ability: Effective Transport Analyst Required: No Beliefs That Will Affect Care: None Current Living Situation: Family Other Information That Helps Us Care for You: No Feels Safe at Home: Yes Safety Concerns: Feels Safe At This Time Smoking Status: Unknown if ever smoked Hx Alcohol Use: No Hx Substance Use: No Physical Exam Constitutional: WD/WN, vitals as above Respiratory: normal respiratory effort, lungs clear to auscultation Cardiovascular: RRR, no murmur, no edema Gastrointestinal (Abdomen): normal bowel sounds, soft, nontender, no hepatosplenomegaly Results & Data Vital Signs (Past 12 Hours) Vital Signs Temp Pulse Pulse Pulse Resp BP BP 09/21/19 11:56 36.5 C 64 16 123/68 09/21/19 11:07 36.5 C 65 18 101/67 09/21/19 08:00 68 09/21/19 07:15 36.5 C 76 16 93/61 L 09/21/19 05:19 66 09/21/19 02:46 36.5 C 73 16 97/64 L Pulse Ox 09/21/19 11:56 95 09/21/19 11:07 91 09/21/19 08:00 09/21/19 07:15 94 09/21/19 05:19 09/21/19 02:46 90 Code Status & VTE Plan VTE Prophylaxis Plan VTE Prophylaxis will be ordered: Yes
[2019-09-21] MEDS ORDERED: LIDOCAINE HCL 2% 2 ML VIAL/AMP(20MG/ML) INFIL ONE (12:19)
[2019-09-21] MEDS ORDERED: PROPOFOL IV EMULSION 10 MG/ML 20 ML VIAL IV ONE (12:19)
--- NOTE | 2019-09-21 12:26 | Electrocardiogram Report ---
Test Reason : Blood Pressure : / mmHG Vent. Rate : 068 BPM Atrial Rate : 068 BPM P-R Int : 176 ms QRS Dur : 080 ms QT Int : 440 ms P-R-T Axes : 046 -27 -08 degrees QTc Int : 467 ms Poor data quality, interpretation may be adversely affected Normal sinus rhythm Septal infarct (cited on or before 20-SEP-2019) Nonspecific T wave abnormality Abnormal ECG When compared with ECG of 20-SEP-2019 19:47, (unconfirmed) Nonspecific T wave abnormality no longer evident in Lateral leads Confirmed by Bayron Rodriguez ([id number]) on 09/21/2019 12:25:28 PM Referred By: REFERRED SELF Confirmed By:Bayron Rodriguez
--- NOTE | 2019-09-21 12:31 | Electrocardiogram Report ---
Test Reason : Blood Pressure : / mmHG Vent. Rate : 074 BPM Atrial Rate : 074 BPM P-R Int : 182 ms QRS Dur : 080 ms QT Int : 436 ms P-R-T Axes : 054 -05 -04 degrees QTc Int : 483 ms Normal sinus rhythm Septal infarct (cited on or before 20-SEP-2019) Nonspecific T wave abnormality Abnormal ECG When compared with ECG of 21-SEP-2019 06:23, (unconfirmed) No significant change was found Confirmed by Bayron Rodriguez ([id number]) on 09/21/2019 12:31:36 PM Referred By: REFERRED SELF Confirmed By:Bayron Rodriguez
--- NOTE | 2019-09-21 12:36 | Gastrointestinal Consultation ---
Date of Consultation September 21, 2019 Assessment & Plan (1) Atypical chest pain: Will r/o esophagitis with EGD today by Dr. Marshall. Further recommendations to follow EGD. Present on Admission?: Yes Supervising Physician Co-Signing Physician Notes I have personally seen and examined the patient with ARELY Rico. Her note reflects my exam and findings. I agree with her impression and plan. After evaluating patient, it is determined to arrange an EGD looking for upper GI pathology to explain her symptoms. Emil Marshall M.D. History of Present Illness Reason for Consultation: Chest pain Requesting Physician: Dr. Silva Attending Physician: Robin Silva MD History of Present Illness Ms. Nury Rivas is a 59 yr old female pt of Dr. Manuelito Caal with a hx of severe Pulmonary Artery HTN, ischemic cardiomyopathy - resolved (2008), Cervical DDD, COPD, chronic pancreatitis who presented to the ED yesterday for mid danette k/chest pain. Cardiac etiologies have been ruled out (normal EKG, troponin and CXR) and GI is asked to consider reflux esophagitis. Pt denies any typical symptoms of reflux. She does report a poor appetite, a 10 lbs weight loss, poor sleep and increased stress related to caring for an injured partner. She denies epigastric pain. She does admit to increased alcohol intake. On arrival, LFTs and lipase were normal. Allergies Allergy/AdvReac Type Severity Reaction Status Date / Time No Known Allergies Allergy Mild Verified 09/21/19 11:58 Home Medications Home Medications Medication Instructions Recorded Confirmed Type albuterol sulfate 2 inh INHALATION QID 09/20/19 09/20/19 History baclofen 20 mg PO TID 09/20/19 09/20/19 History buspirone 5 mg PO TID 09/20/19 09/20/19 History diazepam [Valium] 2 mg PO Q12 PRN 09/20/19 09/20/19 History duloxetine 120 mg PO DAILY 09/20/19 09/20/19 History folic acid 1 mg PO DAILY 09/20/19 09/20/19 History furosemide [Lasix] 40 mg PO DAILY 09/20/19 09/20/19 History gabapentin [Neurontin] 300 mg PO TID 09/20/19 09/20/19 History hydrocodone-acetaminophen 1 tab PO DAILY 09/20/19 09/20/19 History levetiracetam [Keppra XR] 750 mg PO BID 09/20/19 09/20/19 History metoprolol succinate [Toprol XL] 150 mg PO DAILY 09/20/19 09/20/19 History omeprazole 20 mg PO DAILY 09/20/19 09/20/19 History ondansetron HCl 4 mg PO Q6H PRN 09/20/19 09/20/19 History sumatriptan succinate [Imitrex] 0 mg PO .COMPLEX 09/20/19 09/20/19 History thiamine HCl (vitamin B1) [Vitamin 100 mg PO DAILY 09/20/19 09/20/19 History B-1] triamcinolone acetonide 1 applic TOPICAL BID PRN 09/20/19 09/20/19 History umeclidinium-vilanterol [Anoro 1 ea INHALATION DAILY 09/20/19 09/20/19 History Ellipta] Patient History Medical History Alcohol withdrawal delirium (Resolved) Alcohol withdrawal syndrome (Resolved 08/22/11) Alcoholism Chronic diarrhea of unknown origin (Chronic 07/18/11) Chronic pancreatitis COPD (chronic obstructive pulmonary disease) 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/11) History of craniotomy (Resolved) History of tobacco abuse Hypokalemia Hyponatremia Nonischemic cardiomyopathy Seizure disorder (Chronic 05/16/12) Severe pulmonary arterial systolic hypertension Subdural hemorrhage (Resolved 05/16/12) Upper gastrointestinal hemorrhage (Resolved 07/18/11) Uterine leiomyoma (Chronic 07/18/11) Surgical History History of arthroscopic procedure on shoulder History of onel hole surgery History of carpal tunnel surgery History of cholecystectomy (Resolved) History of hysterectomy (Resolved) S/P cervical spinal fusion Social History Preferred Language: Citizen Of [place] Communication Ability: Effective 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 Poor appetite for months, 10 lbs weight loss, poor sleep. Eyes: No eye redness, or pain, no recent vision changes Resp: No SOB, no cough Cardio: + chest pressure No palpitations/irregular beats GI: No abdominal pain, no nausea/vomiting : Denies pain on urination Skin: No jaundice, itching or new rashes Physical Exam Constitutional: WD/WN, vitals as above Eyes: PERRL, conjunctivae normal, anicteric sclerae ENMT: external ear and nose normal, oropharynx normal Neck: trachea midline, no thyromegaly Respiratory: normal respiratory effort, lungs clear to auscultation Cardiovascular: RRR, no murmur, no edema Gastrointestinal (Abdomen): normal bowel sounds, soft, nontender, no hepatosplenomegaly Musculoskeletal: tenderness on palpation of the back between the shoulder bladers Skin: no rashes, warm and dry Neurologic: PERRL, EOMI, accommodation nl, no face palsy, no dysarthria Psychiatric: Orientation: alert and oriented x 3 Affect: + depressed affect (somewhat; does provide good eye contact and answer questions) Lymphatic: no cervical or axillary lymphadenopathy Results & Data Vital Signs (Past 12 Hours) Vital Signs Temp Pulse Pulse Pulse Resp BP BP 09/21/19 11:56 36.5 C 64 16 123/68 09/21/19 11:07 36.5 C 65 18 101/67 09/21/19 08:00 68 09/21/19 07:15 36.5 C 76 16 93/61 L 09/21/19 05:19 66 09/21/19 02:46 36.5 C 73 16 97/64 L Pulse Ox 09/21/19 11:56 95 09/21/19 11:07 91 09/21/19 08:00 09/21/19 07:15 94 09/21/19 05:19 09/21/19 02:46 90 Laboratory Results WBC 4, Hb 12, Hct 36, Plalets 267, Na 141, K 3.4, BUN 17, Cr 1.3, glucose 114. Diagnostic Findings CXR without acute findings
--- NOTE | 2019-09-21 12:47 | GI REPORT ---
Patient Name: Nury Rivas Procedure Date: 09/21/2019 12:24 PM Date of : 1960 Admit Type: Inpatient Age: 59 Gender: Female Attending MD: Emil Marshall MD Procedure: Upper GI endoscopy Providers: Emil Marshall MD Referring MD: Robin Silva Indications: Unexplained chest pain Medicines: See the Anesthesia note for documentation of the administered medications Complications: No immediate complications. Estimated Blood Loss: Estimated blood loss: none. Procedure: Pre-Anesthesia Assessment: - Prior to the procedure, a History and Physical was performed, and patient medications, allergies and sensitivities were reviewed. The patient's tolerance of previous anesthesia was reviewed. - The risks and benefits of the procedure and the sedation options and risks were discussed with the patient. All questions were answered and informed consent was obtained. - Patient identification and proposed procedure were verified prior to the procedure by the physician and the nurse. The procedure was verified in the pre-procedure area. - Pre-procedure physical examination revealed no contraindications to sedation. - After reviewing the risks and benefits, the patient was deemed in satisfactory condition to undergo the procedure. After obtaining informed consent, the endoscope was passed under direct vision. Throughout the procedure, the patient's blood pressure, pulse, and oxygen saturations were monitored continuously. The Endoscope was introduced through the mouth, and advanced to the third part of duodenum. The upper GI endoscopy was accomplished without difficulty. The patient tolerated the procedure well. Findings: The esophagus was normal. The stomach was normal. The examined duodenum was normal. The cardia and gastric fundus were normal on retroflexion. Impression: - Normal esophagus. - Normal stomach. - Normal examined duodenum. - No specimens collected. Recommendation: - Return patient [facility] for [facility] care. Emil Marshall M.D. Emil Marshall MD 09/21/2019 12:46:47 PM This report has been signed electronically. Note Initiated On: 09/21/2019 12:24 PM Number of Addenda: 0 I attest to the content of the Intraoperative Record and orders documented therein, exceptions below {[id number]}
--- NOTE | 2019-09-21 16:27 | Anesthesiology Progress Note ---
Date of Service September 21, 2019 Anesthesia Post Procedure Vital Signs Vital Signs: Temp Pulse Pulse Pulse Resp BP BP 09/21/19 15:33 74 09/21/19 15:09 36.3 C L 71 20 95/65 L 09/21/19 13:39 36.2 C L 66 19 09/21/19 13:33 36.3 C L 68 18 90/62 L 09/21/19 13:18 63 16 95/56 L 09/21/19 13:03 66 16 102/53 L 09/21/19 12:47 70 16 105/53 L 09/21/19 11:56 36.5 C 64 16 09/21/19 11:07 36.5 C 65 18 101/67 09/21/19 08:00 68 09/21/19 07:15 36.5 C 76 16 93/61 L 09/21/19 05:19 66 09/21/19 02:46 36.5 C 73 16 09/21/19 00:14 61 09/20/19 23:36 36.4 C L 68 18 09/20/19 23:30 72 09/20/19 23:00 65 18 09/20/19 22:01 64 18 09/20/19 21:11 09/20/19 21:10 67 20 09/20/19 19:46 36.7 C 74 20 120/76 BP Pulse Ox 09/21/19 15:33 09/21/19 15:09 95 09/21/19 13:39 102/66 97 09/21/19 13:33 91 09/21/19 13:18 94 09/21/19 13:03 94 09/21/19 12:47 93 09/21/19 11:56 123/68 95 09/21/19 11:07 91 09/21/19 08:00 09/21/19 07:15 94 09/21/19 05:19 09/21/19 02:46 97/64 L 90 09/21/19 00:14 09/20/19 23:36 103/65 96 09/20/19 23:30 09/20/19 23:00 133/81 93 09/20/19 22:01 107/56 L 93 09/20/19 21:11 98 09/20/19 21:10 124/74 98 09/20/19 19:46 96 Pain Intensity Chest: Pain Intensity: 8 Transfer of Care Handoff Completed per policy Notes Mental Status: alert / awake / arousable Patient Amnestic to Procedure: Yes Nausea / Vomiting: adequately controlled Pain: adequately controlled Airway Patency, RR, SpO2: stable & adequate BP & HR: stable & adequate Hydration State: stable & adequate Anesthetic Complications: no major complications apparent and Pt Satisfied with anesthetic care
[2019-09-21] MEDS ORDERED: NON-FORMULARY MEDICATION (Oxygen Home 2 LITER) SCH (21:00)
[2019-09-22] MEDS: GABAPENTIN 600 MG TAB PO SCH ×2 (03:51→11:06)
[2019-09-22] MEDS: THIAMINE HCL 100 MG TAB PO SCH (08:08)
[2019-09-22] MEDS: METOPROLOL SUCC 50MG EXT REL TAB PO SCH (08:08)
[2019-09-22] MEDS: levETIRAcetam 250 MG TAB PO SCH (08:09)
[2019-09-22] MEDS: DULOXETINE HCL 60 MG CAP PO SCH (08:09)
[2019-09-22] MEDS: FUROSEMIDE 40 MG TAB PO SCH (08:09)
[2019-09-22] MEDS: FOLIC ACID 1 MG TAB PO SCH (08:10)
[2019-09-22] MEDS: ASPIRIN 81 MG ECTAB PO SCH (08:10)
[2019-09-22] MEDS: BACLOFEN 20 MG TAB PO SCH ×2 (08:10→13:29)
[2019-09-22] MEDS: PANTOprazole 40 MG TAB PO SCH (08:10)
[2019-09-22] MEDS: HYDROCODONE/ACETAMINOPHEN 10/325 TAB PO SCH (08:15)
[2019-09-22] MEDS: ALBUTEROL HFA 8 GM INHALER INH SCH ×2 (08:15→12:28)
--- NOTE | 2019-09-22 10:01 | Cardiology Progress Note ---
Date of Service September 22, 2019 Assessment & Plan (1) Substernal chest pain: The patient's chest discomfort is very atypical. It is reproducible with palpation of the chest wall. Chest x-ray on presentation was without acute process. Troponin is negative x3. EKGs are without acute changes. Telemetry reveals sinus/sinus tachycardia with occasional premature atrial complexes, without significant atrial or ventricular arrhythmias. Resting echocardiography reveals preserved left ventricular systolic function without wall motion abnormalities. Options discussed. General measures advised. To be very thorough, outpatient pharmacological stress testing was offered but declined. She will follow-up with Dr. Hiram Sahu DO as an outpatient. (2) Nonischemic cardiomyopathy: Resolved. This was felt to be catecholamine induced. Volume status is compensated. Recommend continuation of metoprolol succinate and furosemide as prescribed. (3) Severe pulmonary arterial systolic hypertension: Recommend formal sleep study as well as follow-up with pulmonary medicine. (4) Hypokalemia: Supplemented orally, resolved. (5) Hyponatremia: As per hospitalist Supervising Physician Co-Signing Physician Notes Supervising Physician Attestation: I have personally performed a history and physical examination on the patient. I agree with the physician case assistant's findings and plan as documented with the following additions. -Patient ambulating well in the hallway without aggravation of her chest pain. Comfortable. Wilmer Larsen DO Subjective Patient seen and examined. Chart, medications, and telemetry reviewed. No new or worsening chest discomfort, ongoing substernal chest discomfort reproduced with palpation of the chest. No pleuritic chest pain. No palpitations. No new or worsening shortness of breath. No orthopnea, PND, or peripheral edema. No dizziness, near-syncope, or syncope. No fevers or chills. Review of Systems Review of Systems: All systems reviewed & are unremarkable except as noted in HPI & below Physical Exam Physical Exam: General: A&Ox3. NAD. HEENT: Normocephalic. Atraumatic. PER. Conjunctiva pink, sclera clear. Neck: No carotid bruits. No JVD. No HJR. Chest: There is reproducible substernal chest discomfort with palpation of the chest wall Heart: RRR. Grade 1-2 systolic ejection murmur heard best at the lower left sternal border. No diastolic murmur. No rub. No gallop. Lungs: Diminished. Decreased. No abnormal breath sounds auscultated. Abdomen: +BS. Soft. Nontender. No masses or organomegaly. Extremities: No edema. No clubbing. No cyanosis. Limited neurological examination is without focal deficits. Pulses: radial=2/4, posterior tibial=1/4. Results & Data Vital Signs (Past 12 Hours) Vital Signs Temp Pulse Pulse Pulse Resp BP Pulse Ox 09/22/19 07:57 36.2 C L 76 18 138/77 97 09/22/19 04:18 70 09/22/19 04:08 36.7 C 75 18 103/60 97 09/21/19 23:41 36.6 C 66 18 102/66 96 09/21/19 22:19 65 Laboratory Results Laboratory Results - last 24 hr 09/21/19 09/21/19 11:16 11:16 Potassium 3.8 D Troponin I Cancelled < 0.015 Diagnostic Findings September 21, 2019 TTE Interpretation Summary ([facility], Dr. Larsen): Left ventricular wall motion is normal. Ejection fraction 60 to 65%. Normal RV size and function. Mild tricuspid regurgitation. Moderate pulmonary hypertension. Estimated pulmonary systolic pressure 51 mmHg assuming a right atrial pressure of 3 mmHg. Compared to the prior study from March 04, 2018, the previously noted apical wall motion abnormality has resolved and the left ventricular ejection fraction has normalized. Continuous telemetry monitoring reveals sinus rhythm in the 60s to 70s. EKG this morning reveals normal sinus rhythm at 76 bpm with inferior and lateral ST-T wave abnormality. QTC is 472 ms.
--- NOTE | 2019-09-22 14:25 | Electrocardiogram Report ---
Test Reason : Blood Pressure : / mmHG Vent. Rate : 076 BPM Atrial Rate : 076 BPM P-R Int : 190 ms QRS Dur : 082 ms QT Int : 420 ms P-R-T Axes : 061 004 -28 degrees QTc Int : 472 ms Normal sinus rhythm T wave abnormality, consider inferolateral ischemia Prolonged QT Abnormal ECG When compared with ECG of 21-SEP-2019 08:18, Criteria for Septal infarct are no longer Present Nonspecific T wave abnormality now evident in Inferolateral Confirmed by Bayron Rodriguez ([id number]) on 09/22/2019 2:24:43 PM Referred By: REFERRED SELF Confirmed By:Bayron Rodriguez
--- NOTE | 2019-09-22 16:05 | Hospitalist Progress Note ---
Date of Service September 22, 2019 Assessment & Plan (1) Atypical chest pain: ASSESSMENT AND PLAN: This is a 59-year-old female who presents with chest pain. Atypical chest pain (other chest pain, acute coronary syndrome ruled out and normal upper endoscopy), -troponins are negative -echocardiogram performed affirmed pulmonary hypertension; reveals preserved left ventricular systolic function without wall motion abnormalities. -normal upper endoscopy on this admission Severe pulmonary hypertension. -History of nonischemic cardiomyopathy. -per admitting MD notes: Recently had rheumatologic workup which showed SS-AB positive and rheumatoid factor positive. Follow up with rheumatology and also follow with cardiology and pulmonary. -echocardiogram performed affirmed pulmonary hypertension; reveals preserved left ventricular systolic function without wall motion abnormalities. -continue beta pascual and furosemide -Recommend formal sleep study as well as follow-up with pulmonary medicine if such a study has not been performed yet as outpatient -Upcoming appointments 09/27/2019 11:10 AM Provider Manuelito Caal DO Department Family Practice [facility] 10/04/2019 1:30 PM Provider Hiram Sahu Jr., DO Department Cardiology, [facility] 10/21/2019 10:00 AM Provider [facility], [facility] 11/01/2019 10:40 AM Provider Richard Carrillo MD Department Neurology [facility] 11/05/2019 9:30 AM Provider [facility]/06/[facility] 11:30 AM Provider [address] [place] [address] Department [facility] 12/15/2019 2:30 PM Provider ARELY Smith Department Pulmonary Medicine, [facility] Ground-glass opacity on imaging of the lung as outpatient -admission XR chest 1V portable FINDINGS: No pneumothorax. No pleural effusions. Mild interstitial thickening at the left lung base has almost completely resolved. No new focal lung consolidations to suggest pneumonia. No evidence for pulmonary edema. The heart is normal in size. Cervical spinal fusion hardware is again noted. IMPRESSION: No acute process. -Patient has follow up with pulmonary clinic Hyponatremia secondary to alcoholism (hyponatremia resolved during hospital stay) -admission serum Sodium of 127, recently is 135 Alcoholism -still drinking 6-12 beers every day. - no withdrawal symptoms noted - on Alcohol withdrawal protocol with gabapentin while inpatient -Patient is advised to cut back on alcohol use at home as this may contribute to low sodium levels on this admission. Serum sodium normalized in the hospital stay. also recommend cutting back on alcohol and encourage a heart healthy diet and to take blood pressure and diuretic medications as prescribed to preserve the heart function Hypokalemia -resolved after supplementation Depression -Continue home Cymbalta. on BuSpar. -History of hypertension -Continue Toprol-XL, withholding parameters. History of hepatitis C. History of seizure disorder - continue on Keppra. Discharge Diagnosis: Atypical chest pain (other chest pain, acute coronary syndrome ruled out and normal upper endoscopy), Pulmonary Hypertension, Hyponatremia secondary to alcoholism (hyponatremia resolved during hospital stay) Subjective Patient able to ambulate without discomforts. no vomiting. no nausea. no diz ziness. no lightheadedness. breathing on room air. no shortness of breath Review of Systems Review of Systems: All systems reviewed & are unremarkable except as noted in HPI & below Physical Exam Constitutional: WD/WN, vitals as above comfortable Eyes: PERRL, conjunctivae normal, anicteric sclerae EOM intact bilaterally ENMT: external ear and nose normal, oropharynx normal Neck: trachea midline, no thyromegaly normal visual inspection Respiratory: normal respiratory effort, lungs clear to auscultation Cardiovascular: RRR, no murmur, no edema Gastrointestinal (Abdomen): normal bowel sounds, soft, nontender, no hepatosplenomegaly Musculoskeletal: Head/Neck/Chest: normocephalic and head atraumatic Neurologic: PERRL, EOMI, accommodation nl, no face palsy, no dysarthria CN's II-XI intact bilaterally Psychiatric: A+Ox3, euthymic affect Results & Data ([facility]) Vital Signs (Past 12 Hours) Vital Signs Temp Pulse Pulse Pulse Resp BP BP 09/22/19 15:38 36.3 C L 86 20 138/82 09/22/19 14:57 74 09/22/19 11:38 36.3 C L 66 20 113/76 09/22/19 07:57 36.2 C L 76 18 138/77 09/22/19 04:18 70 09/22/19 04:08 36.7 C 75 18 103/60 Pulse Ox 02/05/20 15:38 97 09/22/19 14:57 09/22/19 11:38 95 09/22/19 07:57 97 09/22/19 04:18 09/22/19 04:08 97
--- NOTE | 2019-09-22 16:16 | Discharge Summary ---
Date of Service September 22, 2019 Admission HPI Per Admitting Provider CHIEF COMPLAINT: Chest pain. HISTORY OF PRESENT ILLNESS: This is a 59-year-old female with past medical history significant for alcohol-induced chronic pancreatitis, alcoholism, COPD, nonischemic cardiomyopathy, hypertension, alcoholic fatty liver, esophageal dysmotility, history of hepatitis C, history of traumatic brain injury, history of seizure disorder, history of thrombocytopenia, history of depression, psychosomatic seizure, polypharmacy, ground-glass opacity present on imaging of the lungs, who presents with chest pain. The patient states yesterday around 3:00 p.m., she noticed spasm in her back which radiated to the front of the chest, 8/10 in severity and no radiation, not associated with any sweating, no nausea, no dizziness. Still has the spasm going on. Received aspirin in the ER. On labs , troponin is negative, but sodium is 127. She had a recent echo done in June which showed normal EF, but pulmonary artery pressure was 60-70 mmHg with severe pulmonary hypertension and her lab work was done, which rheumatology workup showed SS-AB elevated and also rheumatoid factor elevated. The patient says she has an appointment with rheumatology tomorrow and also she has an upcoming appointment with cardiology in [place] for further procedures. She is also trying to taper off her narcotics, pain medication. She is only on hydrocodone/acetaminophen 10 mg tablet only once daily currently. She is also on Lasix 40 mg daily. She is not exactly sure about her psych medication, but she is on Cymbalta. She thinks she ight be on Seroquel, but it is not there in the Epic. Currently resting comfortably and hemodynamically stable. She is still drinking 6-12 cans of beer every day, trying to quit. She quit smoking 35 years ago. Currently lives with a partner. Ambulates with a cane. She cannot sleep flat because of the neck surgeries. Has shortness of breath on exertion. Denies any cough, no fever, no chills. Has some headache today. No blurred visions. No earache, no runny nose, no sore throat. Appetite is okay. No dysphagia, no abdominal pain. Normal bowel and bladder movements. No black stools or blood in the stools, no hematuria. Currently, no swelling in the legs, no rash. Hemodynamically stable. ALLERGIES: No known drug allergies. PAST MEDICAL HISTORY: As mentioned above. PAST SURGICAL HISTORY: Biopsy of the breast, carpal tunnel surgery, colonoscopy, EGD with endoscopic ultrasound, laparoscopic cholecystectomy, neck spine fusion surgery, onel hole drainage for subdural hematoma, shoulder arthroscopy, total abdominal hysterectomy with removal of tubes. MEDICATIONS: As per [facility], she is on oxygen 2 liters while sleeping, Valium 2 mg b.i.d. p.r.n., hydrocodone/acetaminophen 10/325 mg 1 tablet daily, to taper off, BuSpar 5 mg p.o. t.i.d., gabapentin 300 mg p.o. t.i.d., Lasix 40 mg p.o. daily, Zofran 4 mg every 6 hours p.r.n., baclofen 20 mg p.o. t.i.d., Cymbalta 60 mg 2 tablets daily, albuterol 2 puffs 4 times a day, thiamine 100 mg p.o. daily, metoprolol succinate 150 mg p.o. daily, folic acid 1 mg p.o. daily, Keppra XR 750 mg p.o. b.i.d., Anoro Ellipta 1 puff daily, omeprazole 20 mg p.o. daily, sumatriptan 50 mg p.r.n. FAMILY HISTORY: Significant for mother had glaucoma, hypertension; father has dementia. SOCIAL HISTORY: Former smoker, quit in 1983. Smoked 1 pack a day for 7 years. Alcohol, currently drinks 6-12 beers every day. No drug use. REVIEW OF SYSTEMS: As per HPI. Rest of review of systems negative. Admission Exam Per Admitting Provider PHYSICAL EXAMINATION: GENERAL: The patient is of moderate build, not in acute distress. VITAL SIGNS: Temperature 36.7, pulse 64, respiratory rate 18, blood pressure 107/56, oxygen 95% on room air. HEENT: No pallor, no icterus. Pupils equal, round, reactive to light. NECK: No JVD, no neck masses, no carotid bruits. CARDIOVASCULAR: S1, S2 heard, regular rate and rhythm, no murmur, no gallop. RESPIRATORY SYSTEM: Normal AP diameter. No accessory muscle use. No wheezing, no crackles. ABDOMEN: Soft, bowel sounds present, nontender. No distention. CENTRAL NERVOUS SYSTEM: Cranial nerves II-XII grossly intact. Nonfocal. EXTREMITIES: No edema, no erythema. Principal Diagnosis Atypical chest pain (other chest pain, acute coronary syndrome ruled out and normal upper endoscopy), Pulmonary Hypertension, Hyponatremia secondary to alcoholism (hyponatremia resolved during hospital stay) Discharge Exam Constitutional WD/WN, vitals as above comfortable Eyes PERRL, conjunctivae normal, anicteric sclerae EOM intact bilaterally ENMT external ear and nose normal, oropharynx normal Neck trachea midline, no thyromegaly normal visual inspection Respiratory normal respiratory effort, lungs clear to auscultation Cardiovascular RRR, no murmur, no edema Gastrointestinal (Abdomen) normal bowel sounds, soft, nontender, no hepatosplenomegaly Musculoskeletal Head/Neck/Chest: normocephalic and head atraumatic Neurologic PERRL, EOMI, accommodation nl, no face palsy, no dysarthria CN's II-XI intact bilaterally Psychiatric A+Ox3, euthymic affect Discharge Data Allergies Allergy/AdvReac Type Severity Reaction Status Date / Time No Known Allergies Allergy Mild Verified 09/21/19 11:58 Consultations 09/20/19 21:30 ED Decision to Admit Stat 09/21/19 08:00 Consult Cardiology Routine 09/21/19 09:41 Consult Gastroenterology Routine Procedures Performed Operation Date: 09/21/19 16:30 Actual Procedures p Esophagogastroduodenoscopy - Emil Cisneros [facility] Course (1) Atypical chest pain: ASSESSMENT AND PLAN: This is a 59-year-old female who presents with chest pain. Atypical chest pain (other chest pain, acute coronary syndrome ruled out and normal upper endoscopy), -troponins are negative -echocardiogram performed affirmed pulmonary hypertension; reveals preserved left ventricular systolic function without wall motion abnormalities. -normal upper endoscopy on this admission Severe pulmonary hypertension. -History of nonischemic cardiomyopathy. -per admitting MD notes: Recently had rheumatologic workup which showed SS-AB positive and rheumatoid factor positive. Follow up with rheumatology and also follow with cardiology and pulmonary. -echocardiogram performed affirmed pulmonary hypertension; reveals preserved left ventricular systolic function without wall motion abnormalities. -continue beta pascual and furosemide -Recommend formal sleep study as well as follow-up with pulmonary medicine if such a study has not been performed yet as outpatient -Upcoming appointments 09/27/2019 11:10 AM Provider Manuelito Caal DO [facility] 10/04/2019 1:30 PM Provider Hiram Shau Jr., DO Department Cardiology, [facility] 10/21/2019 10:00 AM Provider [facility], [facility] 11/01/2019 10:40 AM Provider Richard Carrillo MD Department Neurology [facility] 11/05/2019 9:30 AM Provider [facility] 12/06/2019 11:30 AM Provider [facility] 12/15/2019 2:30 PM Provider ARELY Smith Department Pulmonary Medicine, [facility] Ground-glass opacity on imaging of the lung as outpatient -admission XR chest 1V portable FINDINGS: No pneumothorax. No pleural effusions. Mild interstitial thickening at the left lung base has almost completely resolved. No new focal lung consolidations to suggest pneumonia. No evidence for pulmonary edema. The heart is normal in size. Cervical spinal fusion hardware is again noted. IMPRESSION: No acute process. -Patient has follow up with pulmonary clinic Hyponatremia secondary to alcoholism (hyponatremia resolved during hospital stay) -admission serum Sodium of 127, recently is 135 Alcoholism -still drinking 6-12 beers every day. - no withdrawal symptoms noted - on Alcohol withdrawal protocol with gabapentin while inpatient -Patient is advised to cut back on alcohol use at home as this may contribute to low sodium levels on this admission. Serum sodium normalized in the hospital stay. also recommend cutting back on alcohol and encourage a heart healthy diet and to take blood pressure and diuretic medications as prescribed to preserve the heart function Hypokalemia -resolved after supplementation Depression -Continue home Cymbalta. on BuSpar. -History of hypertension -Continue Toprol-XL, withholding parameters. History of hepatitis C. History of seizure disorder - continue on Keppra. Discharge Diagnosis: Atypical chest pain (other chest pain, acute coronary syndrome ruled out and normal upper endoscopy), Pulmonary Hypertension, Hyponatremia secondary to alcoholism (hyponatremia resolved during hospital stay) Total Time Total Time Spent Total Time Spent (In Minutes): 40 minutes Total Time Includes: Examination of the Patient, Discharge Planning, Medication Reconciliation and Communication With Other Providers Discharge Plan Discharge Items Patient Disposition: Home - Self-Care Reason For Visit: CHEST PAIN Discharge Diagnosis: Atypical chest pain (other chest pain, acute coronary syndrome ruled out and normal upper endoscopy), Pulmonary Hypertension, Hyponatremia secondary to alcoholism (hyponatremia resolved during hospital stay) Condition on Discharge: Good Activity: Resume your previous activity Non-emergency contact: Primary Care Provider and Treasury Assistant Call non-emergency contact if: you have any medication questions Follow-up/Referrals: Manuelito Caal DO [Primary Care Provider] - Diet: Heart Healthy Addtl Attending Provider Instructions: Patient is advised to cut back on alcohol use at home as this may contribute to low sodium levels on this admission. Serum sodium normalized in the hospital stay. also recommend cutting back on alcohol and encourage a heart healthy diet and to take blood pressure and diuretic medications as prescribed to preserve the heart function Recommend formal sleep study as well as follow-up with pulmonary medicine if such a study has not been performed yet as outpatient Upcoming appointments 09/27/2019 11:10 AM Provider Manuelito Caal DO Department Family Practice [facility] 10/04/2019 1:30 PM Provider Hiram Sahu Jr., DO Department Cardiology, [facility] 10/21/2019 10:00 AM Provider [facility], [facility] 11/01/2019 10:40 AM Provider Richard Carrillo MD Department Neurology [facility] 11/05/2019 9:30 AM Provider [facility] 12/06/2019 11:30 AM Provider [address] [place] [address] Department Radiology [facility] 12/15/2019 2:30 PM Provider ARELY Smith Department Pulmonary Medicine, [facility] Pending Studies at Discharge: No Stand-Alone Forms: Call Back Authorization, [facility], Smoking Cessation Medications and DC Order Prescriptions: Continued furosemide [Lasix] 40 mg tablet 40 mg PO DAILY RF: 0 buspirone 5 mg tablet 5 mg PO TID RF: 0 metoprolol succinate [Toprol XL] 50 mg tablet extended release 24 hr 150 mg PO DAILY RF: 0 ondansetron HCl 4 mg Tablet 4 mg PO Q6H PRN (Reason: Nausea) RF: 0 sumatriptan succinate [Imitrex] 50 mg Tablet 0 mg PO .COMPLEX RF: 0 thiamine HCl (vitamin B1) [Vitamin B-1] 100 mg Tablet 100 mg PO DAILY RF: 0 hydrocodone-acetaminophen 10-325 mg tablet 1 tab PO DAILY RF: 0 triamcinolone acetonide 0.1 % cream 1 applic TOPICAL BID PRN (Reason: BREAKOUTS) RF: 0 baclofen 20 mg tablet 20 mg PO TID RF: 0 diazepam [Valium] 2 mg tablet 2 mg PO Q12 PRN (Reason: Anxiety) RF: 0 gabapentin [Neurontin] 300 mg capsule 300 mg PO TID RF: 0 omeprazole 20 mg Capsule,Delayed Release(Dr/Ec) 20 mg PO DAILY RF: 0 folic acid 1 mg Tablet 1 mg PO DAILY RF: 0 albuterol sulfate 90 mcg/actuation Hfa Aerosol Inhaler 2 inh INHALATION QID RF: 0 duloxetine 60 mg capsule,delayed release(DR/EC) 120 mg PO DAILY RF: 0 levetiracetam [Keppra XR] 500 mg tablet extended release 24 hr 750 mg PO BID RF: 0 Anoro Ellipta 62.5-25 mcg/actuation blister with device 1 ea INHALATION DAILY RF: 0 Discharge Orders: Discharge Order (Routine); Ordered 09/22/19 Ordered By: Uche Jones/Other Patient Handouts: Heart Attack First Aid, Heart Attack Signs Admission Data Admit Date/Time: 09/20/19 22:50 Attending Provider: Uche Mike Admit Provider: Barrera Jerry Primary Care Provider: Manuelito Caal Other Providers: Daniel Gleason ; Hiram Sahu ; iWlmer Larsen ; Kieran Leslie ; Trip Vega ; Paco Billings ; Polo Polanco ; Anna Jasmine ; Lisa Kumar ; Andrés Oglesby ; Emil Marshall. Other Interventions: Discharge Summary Assessment (RN) Last Done: 09/21/19 13:09
[2019-09-23] MEDS ORDERED: GABAPENTIN 600 MG TAB PO SCH
[2019-09-24] MEDS ORDERED: GABAPENTIN 600 MG TAB PO SCH (12:00)
[2019-09-24] MEDS ORDERED: GABAPENTIN 300 MG CAP PO SCH (21:00)
== END 2019-09-22 16:51 | disposition home or self-care (01) | DRG 313 ==
LOC: ED 19:40 → 2S 22:50 → SUATTDRO 22:50 → 2S 23:00

== ENCOUNTER 2019-11-05 09:16 | Inpatient (IN) ==
[2019-11-05] MEDS ORDERED: ONDANSETRON INJ 2 MG/ML 2 ML VIAL IV STA (09:55)
[2019-11-05] MEDS ORDERED: MoRPHine SULFATE 4 MG/ML 1 ML CARP\\VIAL IV STA ×2 (09:55→11:47)
[2019-11-05] MEDS ORDERED: ALBUT/IPRATROP 3MG/0.5MG NEB 3 ML VIAL NEB STA (09:55)
[2019-11-05] MEDS ORDERED: SODIUM CHLORIDE 0.9% 500 ML IV SCH (10:00)
--- NOTE | 2019-11-05 10:11 | Emergency Department Note ---
ED Provider Note NAME: JUHI WHITFIELD AGE: 59 SEX: F : 1960 ARRIVES VIA: Ambulance INFORMANT: [Patient, nurse] ED PROVIDER(S): [Keegan Humphrey MD] CHIEF COMPLAINT: Lower back pain HISTORY OF PRESENT ILLNESS: The patient is a 59-year-old female who presents to the ER by EMS with complaints of lower back pain radiating to her chest. The pain is described as severe and constant. It makes the patient short of breath and she also has abdominal pain. The patient denies any fall or trauma. She states that there has been no fever. She denies any urinary complaints. Patient does have pulmonary disease and actually had an appointment with her clearance center manager today. She states that she wears 4 L of oxygen at night. She states that this morning, just a few hours ago, she awoke and had the pain. The patient is quite frankly a poor historian. At times she seems a little bit confused. Given the circumstances, no further history obtainable. REVIEW OF SYSTEMS: Unobtainable given her mental state. PMHx/PSHx: See Below SOCIAL HISTORY: See Below. PHYSICAL EXAM: GENERAL: Patient is in mild distress from pain. HEENT: No acute trauma, normocephalic atraumatic, mucous membranes moist, no nasal congestion, no scleral icterus. NECK: No stridor, no adenopathy, no meningismus, trachea is midline. LUNGS: Diminished breath sounds bilaterally, no wheezing, breath sounds equal, no apparent respiratory distress. HEART: Without murmurs gallops or rubs, regular rate and rhythm. ABDOMEN: Soft, nontender, bowel sounds positive, no hernias, no peritonitis. EXTREMITIES: No cyanosis or edema, full range of motion of all the joints without pain or difficulty, no signs for acute trauma. NEUROLOGIC: Oriented x 3, no acute motor or sensory deficits, no focal weakness. SKIN: No rash, no jaundice, no diaphoresis. Back: Nontender thoracic or lumbar spine, no rash. Pain does appear to worsen slightly when she sits forward. DIFFERENTIAL DIAGNOSIS: Musculoskeletal, disc herniation, fracture, metastatic disease, cord compression, discitis, sciatica, cauda equina, infection, aortic disease, renal colic, gastrointestinal, PE as well as other pathologies. EMERGENCY DEPARTMENT COURSE/PROCEDURES: ECG: Indication was back and chest pain. There is a normal sinus rhythm with a rate of 64, there is artifact present. There are inverted T waves diffusely. QTC is 472. There are no PVCs. Compared to an EKG from September 22, 2019 there is no significant change. Continuous Cardiac Monitoring: An order was placed for continuous cardiac m onitoring. The monitor shows a rate of 66 with normal sinus rhythm. MEDICAL DECISION MAKING: There is a lower white blood cell count at 3.71. This appears baseline looking back at previous testing. There was no anemia. There was a normal platelet count. INR was mildly high at 1.2. Venous blood gas does not show any acidosis or hypoxia. Renal panel testing shows a low potassium at 3. There was no renal failure. Magnesium quite low at 1.4. Lactic acid level was elevated at 2.2, this could be consistent with infection or dehydration. The bilirubin was slightly elevated, the rest of the liver enzymes were unremarkable. The patient appeared to be in a euthyroid state. Ammonia level was normal. EKG showed a normal sinus rhythm, no acute ischemic change. There were some chronic changes noted. Cardiac enzyme testing x1 is not consistent with acute cardiac injury. Urinalysis does not show evidence for infection. Urine tox shows opiates as well as benzos. Chest film did not show pneumonia or CHF. Brain CT showed no acute bleed or mass-effect. Lumbar spine CT did not show any evidence for osteomyelitis or fracture. Chest CT did not show PE or evidence for aortic dissection. There was no pneumonia. Abdominal and pelvis CT did not show any acute surgical process. Pyelonephritis was questioned. The patient presented somewhat confused complaining of lower back pain rating to the chest. She was short of breath. She was aggressively managed. The patient was given a DuoNeb, she received IV magnesium, and 2 bags of magnesium were given. She received IV morphine for pain, several doses of morphine were required for comfort. She was given IV Zofran for nausea. The patient was finally feeling improved but she remained confused. I did speak with a friend who knows her well, the confusion was felt to be new. Given the pain, given the dehydration, the low magnesium, the high lactic acid, the confusion, a hospital stay was felt warranted. Further work-up is required to work through all her issues. Currently, the back pain appears mu sculoskeletal. I am concerned that her medications may be responsible for her confusion and altered mental status. I spoke with case management, I talked with the hospitalist. The patient is aware of all her findings thus far. Impression & Plan Acute confusion, Acute dehydration, SOB (shortness of breath), Lower back pain, Hypomagnesemia Past Med/Surg History Medical History Alcohol withdrawal delirium (Resolved) Alcohol withdrawal syndrome (Resolved 08/22/11) Alcoholism Chronic diarrhea of unknown origin (Chronic 07/18/11) Chronic pancreatitis COPD (chronic obstructive pulmonary disease) 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/11) History of craniotomy (Resolved) History of tobacco abuse Hypokalemia Hyponatremia Nonischemic cardiomyopathy Seizure disorder (Chronic 05/16/12) Severe pulmonary arterial systolic hypertension Subdural hemorrhage (Resolved 05/16/12) Upper gastrointestinal hemorrhage (Resolved 07/18/11) Uterine leiomyoma (Chronic 07/18/11) Surgical History History of arthroscopic procedure on shoulder History of noel hole surgery History of carpal tunnel surgery History of cholecystectomy (Resolved) History of hysterectomy (Resolved) S/P cervical spinal fusion Social History Preferred Language: Kittitian Communication Ability: Effective Sql Analyst Required: No Beliefs That Will Affect Care: None Current Living Situation: Family Feels Safe at Home: Yes Smoking Status: Former smoker Tobacco Type: cigarettes ; Hx Alcohol Use: No Hx Substance Use: No Results & Data Vital Signs Vital Signs - 24 hr 11/05/19 09:23 11/05/19 10:00 11/05/19 10:18 Temperature 36.8 C Temperature Source Oral Pulse Rate 65 66 Pulse Rate [Apical] 69 Pulse Rhythm Regular Regular Pulse Rhythm [Apical] Respiratory Rate 20 14 Respiratory Effort / Characteristics Non-Labored Spontaneous Spontaneous Respiratory Depth Normal Respiratory Pattern Regular Blood Pressure 139/51 L Blood Pressure [Right Arm] Blood Pressure Mean 80 Blood Pressure Mean [Right Arm] Pulse Oximetry 100 100 100 Oxygen Delivery Method Room Air Room Air Room Air Sepsis Recent Fever Within 48 Hours No Sepsis New/Unexplained Change in Mental Status No Sepsis Action Taken by Nursing No Action Required 11/05/19 11:12 11/05/19 12:52 11/05/19 14:00 Temperature Temperature Source Pulse Rate Pulse Rate [Apical] 78 77 66 Pulse Rhythm Pulse Rhythm [Apical] Regular Respiratory Rate 18 20 17 Respiratory Effort / Characteristics Non-Labored Spontaneous Non-Labored Spontaneous Respiratory Depth Normal Normal Respiratory Pattern Regular Blood Pressure Blood Pressure [Right Arm] 129/74 104/68 Blood Pressure Mean Blood Pressure Mean [Right Arm] 92 80 Pulse Oximetry 95 94 94 Oxygen Delivery Method Room Air Room Air Room Air Sepsis Recent Fever Within 48 Hours Sepsis New/Unexplained Change in Mental Status Sepsis Action Taken by Usp Medications Current Medication List: was personally reviewed by me Laboratory Data Attestation: I reviewed the patient's lab results. Result diagrams: 11/05/19 10:30 11/05/19 10:30 Lab Results 11/05/19 11/05/19 11/05/19 Range/Units 10:30 10:30 10:30 WBC 3.71 L (4.8-10.8) K/uL RBC 4.01 L (4.2-5.4) M/uL Hgb 12.9 (12.0-16.0) g/dL Hct 37.8 (37-47) % MCV 94.3 (80-100) fL MCH 32.2 (25-34) pg MCHC 34.1 (32-36) g/dL RDW Std Deviation 48.5 H (36.4-46.3) fL RDW Coeff of [place] 14.1 (11.5-14.5) % Plt Count 145 (130-400) K/uL MPV 9.3 (7.4-10.4) fL Immature Gran % (Auto) 0.0 % Neut % (Auto) 60.7 % Lymph % (Auto) 19.9 % [place] % (Auto) 18.6 % Eos % (Auto) 0.5 % Baso % (Auto) 0.3 % Immature Gran # (Auto) 0.00 (0.00-0.02) K/uL Neut # (Auto) 2.25 (1.4-6.5) K/uL Lymph # (Auto) 0.74 L (1.2-3.4) K/uL [place] # (Auto) 0.69 H (0.11-0.59) K/uL Eos # (Auto) 0.02 (0-0.5) K/uL Baso # (Auto) 0.01 (0-0.2) K/uL PT 12.9 H (9.0-12.0) Seconds INR 1.2 H (0.9-1.1) APTT 25.6 (21.0-31.0) Seconds PTT Ratio 0.9 VBG pH (7.36-7.41) VBG pCO2 (38-50) mmHg VBG pO2 mmHg VBG HCO3 mmol/L VBG O2 Saturation % VBG Base Excess mEq/L Barometric Pressure mm/Hg Sodium 131 L (136-145) mmol/L Potassium 3.0 L (3.5-5.1) mmol/L Chloride 93 L (98-107) mmol/L Carbon Dioxide 21 (21-32) mmol/L Anion Gap 17.0 H (3-11) BUN 11 (7-18) mg/dl Creatinine 1.15 (0.6-1.2) mg/dl Est Cr Clr Drug Dosing 53.7 ml/min Est GFR ( Amer) 59.9 Est GFR (Non-Af Amer) 51.7 BUN/Creatinine Ratio 9.5 L (10-20) Glucose 96 (70-99) mg/dl Lactate (0.4-2.0) mmol/L Calcium 9.1 (8.5-10.1) mg/dl Magnesium 1.4 L (1.8-2.4) mg/dl Total Bilirubin 1.9 H (0.2-1) mg/dl AST 28 (15-37) U/L ALT 25 (12-78) U/L Alkaline Phosphatase 101 (45-117) U/L Ammonia (11-32) umol/L Troponin I < 0.015 (0-0.045) ng/ml Total Protein 7.7 (6.4-8.2) gm/dl Albumin 3.7 (3.4-5.0) gm/dl Globulin 4.0 (2.5-4.0) gm/dl Albumin/Globulin Ratio 0.9 (0.9-2) TSH 1.320 (0.300-4.500) uIu/ml Urine Color Urine Appearance (Clear) Urine pH (4.5-7.5) Ur Specific [place] (1.000-1.030) Urine Protein (Negative) Urine Glucose (UA) (Negative) Urine Ketones (Negative) Urine Blood (Negative) Urine Nitrite (Negative) Urine Bilirubin (Negative) Urine Urobilinogen (Negative) Ur Leukocyte Esterase (Negative) Urine Opiates Screen (Neg) Ur Methadone, Qual (Neg) Urine Barbiturates (Neg) Ur Phencyclidine (PCP) (Neg) U Amphetamin/Meth Scrn (Neg) MDMA (Ecstasy) Screen (Neg) U Benzodiazepines Scrn (Neg) Ur Cocaine Metabolite (Neg) U Marijuana (THC) Screen (Neg) Ethyl Alcohol mg/dL (0-3) mg/dl 11/05/19 11/05/19 11/05/19 Range/Units 10:30 10:30 10:30 WBC (4.8-10.8) K/uL RBC (4.2-5.4) M/uL Hgb (12.0-16.0) g/dL Hct (37-47) % MCV (80-100) fL MCH (25-34) pg MCHC (32-36) g/dL RDW Std Deviation (36.4-46.3) fL RDW Coeff of [place] (11.5-14.5) % Plt Count (130-400) K/uL MPV (7.4-10.4) fL Immature Gran % (Auto) % Neut % (Auto) % Lymph % (Auto) % [place] % (Auto) % Eos % (Auto) % Baso % (Auto) % Immature Gran # (Auto) (0.00-0.02) K/uL Neut # (Auto) (1.4-6.5) K/uL Lymph # (Auto) (1.2-3.4) K/uL [place] # (Auto) (0.11-0.59) K/uL Eos # (Auto) (0-0.5) K/uL Baso # (Auto) (0-0.2) K/uL PT (9.0-12.0) Seconds INR (0.9-1.1) APTT (21.0-31.0) Seconds PTT Ratio VBG pH 7.57 H (7.36-7.41) VBG pCO2 27 L (38-50) mmHg VBG pO2 23 mmHg VBG HCO3 24 mmol/L VBG O2 Saturation < 60.0 % VBG Base Excess 3.0 mEq/L Barometric Pressure 729.3 mm/Hg Sodium (136-145) mmol/L Potassium (3.5-5.1) mmol/L Chloride (98-107) mmol/L Carbon Dioxide (21-32) mmol/L Anion Gap (3-11) BUN (7-18) mg/dl Creatinine (0.6-1.2) mg/dl Est Cr Clr Drug Dosing ml/min Est GFR ( Amer) Est GFR (Non-Af Amer) BUN/Creatinine Ratio (10-20) Glucose (70-99) mg/dl Lactate 2.2 H* (0.4-2.0) mmol/L Calcium (8.5-10.1) mg/dl Magnesium (1.8-2.4) mg/dl Total Bilirubin (0.2-1) mg/dl AST (15-37) U/L ALT (12-78) U/L Alkaline Phosphatase (45-117) U/L Ammonia (11-32) umol/L Troponin I (0-0.045) ng/ml Total Protein (6.4-8.2) gm/dl Albumin (3.4-5.0) gm/dl Globulin (2.5-4.0) gm/dl Albumin/Globulin Ratio (0.9-2) TSH (0.300-4.500) uIu/ml Urine Color Urine Appearance (Clear) Urine pH (4.5-7.5) Ur Specific [place] (1.000-1.030) Urine Protein (Negative) Urine Glucose (UA) (Negative) Urine Ketones (Negative) Urine Blood (Negative) Urine Nitrite (Negative) Urine Bilirubin (Negative) Urine Urobilinogen (Negative) Ur Leukocyte Esterase (Negative) Urine Opiates Screen (Neg) Ur Methadone, Qual (Neg) Urine Barbiturates (Neg) Ur Phencyclidine (PCP) (Neg) U Amphetamin/Meth Scrn (Neg) MDMA (Ecstasy) Screen (Neg) U Benzodiazepines Scrn (Neg) Ur Cocaine Metabolite (Neg) U Marijuana (THC) Screen (Neg) Ethyl Alcohol mg/dL < 3.0 (0-3) mg/dl 11/05/19 11/05/19 11/05/19 Range/Units 10:30 13:20 13:20 WBC (4.8-10.8) K/uL RBC (4.2-5.4) M/uL Hgb (12.0-16.0) g/dL Hct (37-47) % MCV (80-100) fL MCH (25-34) pg MCHC (32-36) g/dL RDW Std Deviation (36.4-46.3) fL RDW Coeff of [place] (11.5-14.5) % Plt Count (130-400) K/uL MPV (7.4-10.4) fL Immature Gran % (Auto) % Neut % (Auto) % Lymph % (Auto) % [place] % (Auto) % Eos % (Auto) % Baso % (Auto) % Immature Gran # (Auto) (0.00-0.02) K/uL Neut # (Auto) (1.4-6.5) K/uL Lymph # (Auto) (1.2-3.4) K/uL [place] # (Auto) (0.11-0.59) K/uL Eos # (Auto) (0-0.5) K/uL Baso # (Auto) (0-0.2) K/uL PT (9.0-12.0) Seconds INR (0.9-1.1) APTT (21.0-31.0) Seconds PTT Ratio VBG pH (7.36-7.41) VBG pCO2 (38-50) mmHg VBG pO2 mmHg VBG HCO3 mmol/L VBG O2 Saturation % VBG Base Excess mEq/L Barometric Pressure mm/Hg Sodium (136-145) mmol/L Potassium (3.5-5.1) mmol/L Chloride (98-107) mmol/L Carbon Dioxide (21-32) mmol/L Anion Gap (3-11) BUN (7-18) mg/dl Creatinine (0.6-1.2) mg/dl Est Cr Clr Drug Dosing ml/min Est GFR ( Amer) Est GFR (Non-Af Amer) BUN/Creatinine Ratio (10-20) Glucose (70-99) mg/dl Lactate (0.4-2.0) mmol/L Calcium (8.5-10.1) mg/dl Magnesium (1.8-2.4) mg/dl Total Bilirubin (0.2-1) mg/dl AST (15-37) U/L ALT (12-78) U/L Alkaline Phosphatase (45-117) U/L Ammonia < 10.0 L (11-32) umol/L Troponin I (0-0.045) ng/ml Total Protein (6.4-8.2) gm/dl Albumin (3.4-5.0) gm/dl Globulin (2.5-4.0) gm/dl Albumin/Globulin Ratio (0.9-2) TSH (0.300-4.500) uIu/ml Urine Color Yellow Urine Appearance Clear (Clear) Urine pH 5.5 (4.5-7.5) Ur Specific [place] 1.031 H (1.000-1.030) Urine Protein Negative (Negative) Urine Glucose (UA) Negative (Negative) Urine Ketones 1+ H (Negative) Urine Blood Negative (Negative) Urine Nitrite Negative (Negative) Urine Bilirubin Negative (Negative) Urine Urobilinogen Negative (Negative) Ur Leukocyte Esterase Negative (Negative) Urine Opiates Screen Pos H (Neg) Ur Methadone, Qual Neg (Neg) Urine Barbiturates Neg (Neg) Ur Phencyclidine (PCP) Neg (Neg) U Amphetamin/Meth Scrn Neg (Neg) MDMA (Ecstasy) Screen Neg (Neg) U Benzodiazepines Scrn Pos H (Neg) Ur Cocaine Metabolite Neg (Neg) U Marijuana (THC) Screen Neg (Neg) Ethyl Alcohol mg/dL (0-3) mg/dl Administered Medications Magnesium Sulfate/Dextrose (Magnesium Sulfate / D5w) 1 gm in 100 mls @ 100 mls/hr IV ONE ONE Stop: 11/05/19 16:44 Last Admin: 11/05/19 16:18 Dose: 100 mls/hr Documented by: [id number] Ioversol (Optiray 320 125ml) 119 ml IV ONCE PRN PRN Reason: Interaction Checking Stop: 11/09/19 11:27 Last Admin: 11/05/19 11:29 Dose: 119 ml Documented by: [id number] Discontinued Medications Albuterol (Duoneb) 3 ml NEB NOW STA Stop: 11/05/19 09:56 Last Admin: 11/05/19 10:17 Dose: 3 ml Documented by: [id number] Sodium Chloride (Nss) 500 mls @ 999 mls/hr IV .Q31M LAURA Stop: 11/05/19 10:30 Last Infusion: 11/05/19 10:55 Dose: 0 mls/hr Documented by: [id number] Admin: 11/05/19 10:09 Dose: 999 mls/hr Documented by: [id number] Magnesium Sulfate/Dextrose (Magnesium Sulfate / D5w) 1 gm in 100 mls @ 100 mls/hr IV ONE ONE Stop: 11/05/19 12:25 Last Infusion: 11/05/19 12:49 Dose: 0 mls/hr Documented by: [id number] Admin: 11/05/19 11:41 Dose: 100 mls/hr Documented by: [id number] Sodium Chloride (Nss 1000ml) 1,000 mls @ 999 mls/hr IV .Q1H1M ONE Stop: 11/05/19 13:27 Last Infusion: 11/05/19 14:07 Dose: 0 mls/hr Documented by: [id number] Admin: 11/05/19 12:51 Dose: 999 mls/hr Documented by: [id number] Sodium Chloride (Nss 1000ml) 500 mls @ 999 mls/hr IV .Q31M ONE Stop: 11/05/19 16:15 Last Admin: 11/05/19 16:18 Dose: 999 mls/hr Documented by: [id number] Morphine Sulfate (Morphine Sulfate) 4 mg IV NOW STA Stop: 11/05/19 09:56 Last Admin: 11/05/19 10:09 Dose: 4 mg Documented by: [id number] Morphine Sulfate (Morphine Sulfate) 4 mg IV NOW STA Stop: 11/05/19 11:48 Last Admin: 11/05/19 11:50 Dose: 4 mg Documented by: [id number] Ondansetron HCl (Zofran) 4 mg IV NOW STA Stop: 11/05/19 09:56 Last Admin: 11/05/19 10:09 Dose: 4 mg Documented by: [id number] Blood Pressure Blood Pressure Findings: Normal blood pressure Discharge Plan Visit Data Chief Complaint: Back Injury/Pain ED Provider: Keegan Humphrey Discharge Problem: Acute confusion, Acute dehydration, SOB (shortness of breath), Lower back pain, Hypomagnesemia Patient Disposition: Being Evaluated by Hospitalist Condition: Fair Forms Stand Alone Forms: [facility] Prescriptions Prescriptions: No Action furosemide [Lasix] 40 mg tablet 40 mg PO QAM RF: 0 buspirone 5 mg tablet 5 mg PO TID RF: 0 metoprolol succinate [Toprol XL] 50 mg tablet extended release 24 hr 150 mg PO QAM RF: 0 ondansetron HCl 4 mg Tablet 4 mg PO Q6H PRN (Reason: Nausea) RF: 0 sumatriptan succinate [Imitrex] 50 mg Tablet 0 mg PO .COMPLEX RF: 0 thiamine HCl (vitamin B1) [Vitamin B-1] 100 mg Tablet 100 mg PO QAM RF: 0 hydrocodone-acetaminophen 10-325 mg tablet 1 tab PO QAM RF: 0 triamcinolone acetonide 0.1 % cream 1 applic TOPICAL BID PRN (Reason: BREAKOUTS) RF: 0 baclofen 20 mg tablet 20 mg PO TID RF: 0 diazepam [Valium] 2 mg tablet 2 mg PO Q12 PRN (Reason: Anxiety) RF: 0 gabapentin [Neurontin] 300 mg capsule 300 mg PO TID RF: 0 omeprazole 20 mg Capsule,Delayed Release(Dr/Ec) 20 mg PO QAM RF: 0 folic acid 1 mg Tablet 1 mg PO QAM RF: 0 albuterol sulfate 90 mcg/actuation Hfa Aerosol Inhaler 2 inh INHALATION QID RF: 0 duloxetine 60 mg capsule,delayed release(DR/EC) 120 mg PO QAM RF: 0 levetiracetam [Keppra XR] 500 mg tablet extended release 24 hr 750 mg PO BID RF: 0 Anoro Ellipta 62.5-25 mcg/actuation blister with device 1 ea INHALATION HS RF: 0 Referrals Referrals: Manuelito Caal DO [Primary Care Provider] - Discharge Problem: Lower back pain Qualifiers: Chronicity: acute Back pain laterality: midline Sciatica presence: without sciatica Qualified Code(s): M54.5 - Low back pain
[2019-11-05 10:46] LABS: Basophils # (auto) 0.01 K/uL (0-0.2); Basophils % (auto) 0.3 %; Eosinophils # (auto) 0.02 K/uL (0-0.5); Eosinophils % (auto) 0.5 %; Hematocrit (blood only) 37.8 % (37-47); Hemoglobin 12.9 g/dL (12.0-16.0); Lymphocytes # (auto) 0.74 K/uL (1.2-3.4); Lymphocytes % (auto) 19.9 %; Mean Corpuscular Hemoglobin 32.2 pg (25-34); Mean Corpuscular Hgb Conc 34.1 g/dL (32-36); Mean Corpuscular Volume 94.3 fL (80-100); Mean Platelet Volume 9.3 fL (7.4-10.4); Monocytes # (auto) 0.69 K/uL (0.11-0.59); Monocytes % (auto) 18.6 %; Neutrophils # (auto) 2.25 K/uL (1.4-6.5); Neutrophils % (auto) 60.7 %; Platelet Count 145 K/uL (130-400); RDW Coefficient of Variation 14.1 % (11.5-14.5); RDW Standard Deviation 48.5 fL (36.4-46.3); Red Blood Count 4.01 M/uL (4.2-5.4); White Blood Count 3.71 K/uL (4.8-10.8)
[2019-11-05 10:48] LABS: HCO3 VBG 24 mmol/L; Oxygen Saturation VBG < 60.0 %; PCO2 VBG 27 mmHg (38-50); PO2 VBG 23 mmHg; pH VBG 7.57 (7.36-7.41)
[2019-11-05 11:05] LABS: Alanine Aminotransferase 25 U/L (12-78); Albumin Level 3.7 gm/dl (3.4-5.0); Aspartate Aminotransferase 28 U/L (15-37); BUN Creatinine Ratio 9.5 (10-20); Blood Urea Nitrogen 11 mg/dl (7-18); Calcium 9.1 mg/dl (8.5-10.1); Carbon Dioxide 21 mmol/L (21-32); Chloride 93 mmol/L (98-107); Creatinine Clr Calc Pharmacy 53.7 ml/min; Est GFR (African American) 59.9; Est GFR (Non-African American) 51.7; Glucose 96 mg/dl (70-99); Magnesium 1.4 mg/dl (1.8-2.4); Sodium 131 mmol/L (136-145)
--- NOTE | 2019-11-05 11:14 | XRay Report ---
XR chest 1V portable HISTORY: weakness COMPARISON: Chest 09/20/2019. FINDINGS: The lungs are clear. Cardiac silhouette is normal in size. No pleural effusions. No pneumot horax. Cervical spine fusion hardware is again noted. IMPRESSION: No acute process. ACT 112: Negative or not required by law. Electronically signed by: Charan Miles M.D. 11/05/2019 11:12 AM
[2019-11-05 11:16] LABS: Albumin Globulin Ratio 0.9 (0.9-2); Alkaline Phosphatase 101 U/L (45-117); Bilirubin,Total 1.9 mg/dl (0.2-1); Total Protein 7.7 gm/dl (6.4-8.2); Troponin I < 0.015 ng/ml (0-0.045)
[2019-11-05 11:25] LABS: INR 1.2 (0.9-1.1); Partial Thromboplastin Ratio 0.9; Partial Thromboplastin Time 25.6 Seconds (21.0-31.0); Prothrombin Time 12.9 Seconds (9.0-12.0)
[2019-11-05] MEDS ORDERED: MAGNESIUM SULFATE / D5W 1 GM/100 ML BAG IV ONE ×2 (11:26→15:45)
[2019-11-05] MEDS ORDERED: OPTIRAY 320 125ml IV PRN (11:28)
--- NOTE | 2019-11-05 11:44 | CT Scan Report ---
CT head/brain wo con CT DOSE: 1525.05 mGy.cm HISTORY: Mental status change confusion TECHNIQUE: Multiaxial CT images of the head were performed without the use of intravenous contrast. A dose lowering technique was utilized adhering to the principles of ALARA. Comparison: None. 04/08/2018 FINDINGS: Prior right sided craniotomy unchanged from the prior exam density characteristics of the c erebellar as well as cerebral hemispheres are unremarkable. The ventricular system is midline. No rosalva dence for acute intracranial hemorrhage. Impression: No acute intracranial abnormality. No change from the prior exam. ACT 112: Negative or not required by law. The above report was generated using voice recognition software. It may contain grammatical, syntax or spelling errors. Electronically signed by: Polo Crabtree M.D. 11/05/2019 11:43 AM
--- NOTE | 2019-11-05 11:46 | CT Scan Report ---
Study: CT lumbar spine HISTORY: Pain FINDINGS: Normal alignment of the vertebral bodies. Vertebral body stature is normal. Mild degenerati ve disc changes throughout. No major compromise of the spinal canal or neural foramina. IMPRESSION: 1. Moderate degenerative disc change. 2. No acute process. Electronically signed by: Polo Crabtree M.D. 11/05/2019 11:45 AM
--- NOTE | 2019-11-05 12:03 | CT Scan Report ---
CHEST CTA for PULMONARY ARTERIES CT DOSE: HISTORY: Shortness of breath. TECHNIQUE: Multiaxial CT images of the chest were performed following the intravenous administration of contrast to evaluate the pulmonary arteries. Maximal intensity projection images were also obtaine d. A dose lowering technique was utilized adhering to the principles of ALARA. COMPARISON STUDY: Chest CTA 10/23/2016. FINDINGS: Normal caliber thoracic aorta with no evidence for dissection. The heart is normal in size. No pleural or pericardial effusions. No filling defects within the pulmonary arteries to suggest pul monary embolus. Cervical spinal fusion hardware is partially visualized. No hilar lymphadenopathy. A few prominent mediastinal lymph nodes remain stable. Some of these are partially calcified. Limited v iews of the upper abdomen demonstrate a normal spleen and adrenal glands. Hepatic steatosis. Cholecys tectomy. Punctate calcifications within the pancreas consistent with chronic pancreatitis. No evidenc e for acute pancreatitis by CT. Healing left lateral seventh rib fracture. Old, healed distal right c lavicle fracture. The central airways are patent. No pneumothorax. Mild dependent changes within the lungs posteriorly. Otherwise, lungs are clear. No focal lung consolidations to suggest pneumonia. IMPRESSION: No evidence for pulmonary embolus. Additional findings as described above. ACT 112: Negative or not required by law. Electronically signed by: Charan Miles M.D. 11/05/2019 12:02 PM
--- NOTE | 2019-11-05 12:07 | CT Scan Report ---
CT OF THE ABDOMEN AND PELVIS WITH CONTRAST CLINICAL HISTORY: Back and abdominal pain. COMPARISON STUDY: CT of the abdomen and pelvis February 26, 2018. TECHNIQUE: Following IV administration of 119 mL of Optiray-320, axial images of the abdomen and pelv is were obtained from the lung bases to the proximal femurs. Images were reviewed in the axial, sagit leroy, and coronal planes. IV contrast was administered without complication. Automated exposure contr ol was utilized for the study. A dose lowering technique was utilized adhering to the principles of ALARA. FINDINGS: Chest CT will be reported separately. There is slight nodularity of the liver surface. No h epatic lesions are identified. Mild biliary ductal dilatation is unchanged and likely related to chol ecystectomy. There is no pancreatic ductal dilatation. Linear calcifications within the pancreas are noted. Pancreas divisum is suspected. Size of the spleen is at the upper limits of normal. The adrena l glands are unremarkable. There is no hydronephrosis. There is heterogeneous enhancement of both kid neys. This could be artifactual. There are no ureteral calculi. There is no evidence for a bowel obst ruction. Submucosal fat deposition within the right colon is chronic. The appendix is unremarkable. N o lymphadenopathy or ascites is present. Major vasculature is patent. No pneumatosis, free air or por leroy venous gas is present. IMPRESSION: 1. No acute process within the abdomen or pelvis. 2. Suspected cirrhosis. 3. No bowel obstruction. Submucosal fat deposition of the right colon which is chronic. 4. Mild heterogeneous enhancement of the kidneys which is of doubtful significance however could be c orrelated with urinalysis to exclude the possibility of pyelonephritis. ACT 112: Negative or not required by law. Electronically signed by: Ion Azul M.D. 11/05/2019 12:06 PM
[2019-11-05] MEDS ORDERED: SODIUM CHLORIDE 0.9% 1000ML 1,000 ML IV ONE (12:27)
[2019-11-05 13:39] LABS: Appearance Urine Clear (Clear); Bilirubin Urine Negative (Negative); Blood Urine Negative (Negative); Color Urine Yellow; Glucose Urine UA Negative (Negative); Ketones Urine 1+ (Negative); Leukocyte Esterase Urine Negative (Negative); Nitrite Urine Negative (Negative); Protein Urine Negative (Negative); Specific Gravity Urine 1.031 (1.000-1.030); Urobilinogen Urine Negative (Negative); pH Urine 5.5 (4.5-7.5)
[2019-11-05 14:10] LABS: Amphetamines+Metham, Urine Neg (Neg); Barbiturates, Urine Neg (Neg); Benzodiazepine, Urine Pos (Neg); Cocaine, Urine Neg (Neg); MDMA (Ecstacy), Urine Neg (Neg); Methadone, Urine Neg (Neg); Opiate, Urine Pos (Neg); Phencyclidine, Urine Neg (Neg)
[2019-11-05] MEDS ORDERED: SODIUM CHLORIDE 0.9% 1000ML 500 ML IV ONE (15:45)
--- NOTE | 2019-11-05 18:09 | Electrocardiogram Report ---
Test Reason : Blood Pressure : / mmHG Vent. Rate : 064 BPM Atrial Rate : 064 BPM P-R Int : 166 ms QRS Dur : 078 ms QT Int : 458 ms P-R-T Axes : 045 029 -72 degrees QTc Int : 472 ms Poor data quality, interpretation may be adversely affected Normal sinus rhythm Prolonged QT Abnormal ECG When compared with ECG of 22-SEP-2019 06:58, T wave inversion now evident in Anterior leads Confirmed by Jorge Alberto Packer ([id number]) on 11/05/2019 6:09:20 PM Referred By: REFERRED SELF Confirmed By:Jorge Alberto Packer
[2019-11-05] MEDS ORDERED: LORazepam 1 MG/2 ML VIAL IV PRN (18:36)
[2019-11-05] MEDS ORDERED: diazePAM 2 MG TABLET PO PRN (18:36)
--- NOTE | 2019-11-05 19:00 | History & Physical Report ---
Date of Service November 05, 2019 Assessment & Plan (1) Toxic encephalopathy: -Admit to [facility] with telemetry -Patient presenting from home with altered mental status -Likely due to polypharmacy; patient started on gabapentin yesterday for chronic neck pain, also currently taking baclofen, Vicodin, diazepam, buspirone, duloxetine. Patient also drinks 5 beers/day that is likely contributing as well. -Head CT negative for acute findings, no focal deficits on exam, no seizure-like activity reported in the history -Hold gabapentin, baclofen, Vicodin, buspirone, duloxetine; continue diazepam to avoid withdrawal (2) Alcoholism: -Patient reports drinking 5 beers/day -Alcohol level negative -Last drink yesterday per patient -No signs of active withdrawal -Alcohol withdrawal " at risk" protocol ordered -Continue thiamine and folic acid (3) Chronic hyponatremia: -Likely due to chronic alcoholism -Na+ 131, at baseline, continue monitor (4) Hypokalemia: (5) Hypomagnesemia: -K+ 3.0, MG +1.4 -Replace, follow electrolytes (6) Seizure disorder: -Continue Keppra (7) COPD (chronic obstructive pulmonary disease): -Appears stable, no signs of acute exacerbation (8) DVT prophylaxis: -SQ Lovenox History of Present Illness Chief Complaint: Altered mental status Primary Care Provider: Manuelito barnes DO 59-year-old female who presents the ED with altered mental status. Some history is obtained from patient's friend who is at the bedside. She read me a text message from patient's partner who described what she observed this morning. Patient has chronic back pain and is currently being followed by [facility] pain management. She was seen on 11/02 and was started on gabapentin. Patient took her first dose was yesterday. Per her usual routine, patient took a baclofen and Vicodin this morning for her chronic back pain. Shortly after, patient became confused and "was not making any sense." She was placing the TV remote into a bag along with her pills. EMS was called and patient was brought to the ED for further evaluation. There was no reported loss of consciousness or seizure-like activity. Patient reports she otherwise has been feeling well recently. No other recent illnesses, fevers, chills. She denies chest pain and shortness of breath. No lightheadedness, dizziness, diaphoresis, syncopal events. She denies abdominal pain, nausea, vomiting, diarrhea. No urinary symptoms. In the ED, labs show mild hyponatremia, hypokalemia, hypomagnesemia. Initial lactate was 2.2 and after IVF, improved to 0.8. Head CT, lumbar spine CT, chest CTA, CT ABD/pelvis are all negative for acute findings. Patient was given IV magnesium replacement, 2 doses of IV morphine, IV Zofran, IVF. Allergies Allergy/AdvReac Type Severity Reaction Status Date / Time acetaminophen [From Tylenol] AdvReac Unknown Unknown Unverified 11/05/19 10:48 ibuprofen AdvReac Unknown Unverified 11/05/19 10:48 Home Medications Home Medications Medication Instructions Recorded Confirmed Type Anoro Ellipta 1 ea INHALATION HS 09/20/19 11/05/19 History albuterol sulfate 2 inh INHALATION QID 09/20/19 11/05/19 History baclofen 20 mg PO TID 09/20/19 11/05/19 History buspirone 5 mg PO TID 09/20/19 11/05/19 History diazepam [Valium] 2 mg PO Q12 PRN 09/20/19 11/05/19 History duloxetine 120 mg PO QAM 09/20/19 11/05/19 History folic acid 1 mg PO QAM 09/20/19 11/05/19 History furosemide [Lasix] 40 mg PO QAM 09/20/19 11/05/19 History gabapentin [Neurontin] 300 mg PO UD 09/20/19 11/05/19 History hydrocodone-acetaminophen 1 tab PO QAM 09/20/19 11/05/19 History levetiracetam [Keppra XR] 750 mg PO BID 09/20/19 11/05/19 History metoprolol succinate [Toprol XL] 150 mg PO QAM 09/20/19 11/05/19 History omeprazole 20 mg PO QAM 09/20/19 11/05/19 History ondansetron HCl 4 mg PO Q6H PRN 09/20/19 11/05/19 History sumatriptan succinate [Imitrex] 0 mg PO .COMPLEX 09/20/19 11/05/19 History thiamine HCl (vitamin B1) [Vitamin 100 mg PO QAM 09/20/19 11/05/19 History B-1] triamcinolone acetonide 1 applic TOPICAL BID PRN 09/20/19 11/05/19 History Past Med/Surg History Medical History Alcoholism Chronic hyponatremia Chronic pancreatitis COPD (chronic obstructive pulmonary disease) 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/11) History of craniotomy (Resolved) Due to subdural hematoma from fall History of tobacco abuse Nonischemic cardiomyopathy Seizure disorder (Chronic 05/16/12) Severe pulmonary arterial systolic hypertension Uterine leiomyoma (Chronic 07/18/11) Surgical History History of arthroscopic procedure on shoulder History of onel hole surgery History of carpal tunnel surgery History of cholecystectomy (Resolved) History of hysterectomy (Resolved) S/P cervical spinal fusion Family History Mother Hypertension Social History Preferred Language: Kazakh Communication Ability: Effective 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 Beliefs That Will Affect Care: None Current Living Situation: Family Other Information That Helps Us Care for You: No Feels Safe at Home: Yes Safety Concerns: Feels Safe At This Time Smoking Status: Former smoker Tobacco Type: cigarettes ; Do You Dip or Chew Tobacco: No ; Second Hand Exposure: No ; Tobacco Cessation Education Requested by Patient: No Hx Alcohol Use: Yes Alcohol type: beer Alcohol Intake Frequency: Daily Alcohol Intake Frequency Comment: 5 beers/day Hx Substance Use: No Review of Systems Review of Systems: ROS per HPI, all other systems reviewed and negative Physical Exam Constitutional: WD/WN, vitals as above Eyes: PERRL, conjunctivae normal, anicteric sclerae ENMT: external ear and nose normal, oropharynx normal Respiratory: normal respiratory effort, lungs clear to auscultation Cardiovascular: Rate/Rhythm: regular rate and regular rhythm Vessels: normal peripheral pulses Extremities: no edema Gastrointestinal (Abdomen): normal bowel sounds, soft, nontender, no hepatosplenomegaly Musculoskeletal: no cyanosis or clubbing, extremities motor strength 5/5 Skin: no rashes, warm and dry Neurologic: PERRL, EOMI, accommodation nl, no face palsy, no dysarthria awake; no focal motor deficits Motor/Sensory: + tremor (Occasional) Also s ome occasional myoclonic jerking noted, slow to respond at times Psychiatric: Orientation: alert, oriented to person and oriented to place; + not oriented to time Affect: + flat affect Results & Data Vital Signs (Past 12 Hours) Vital Signs Temp Pulse Pulse Resp BP BP Pulse Ox 11/05/19 17:10 71 20 126/62 93 11/05/19 16:40 74 18 119/77 95 11/05/19 14:00 66 17 104/68 94 11/05/19 12:52 77 20 94 11/05/19 11:12 78 18 129/74 95 11/05/19 10:18 69 14 100 11/05/19 10:00 66 100 11/05/19 09:23 36.8 C 65 20 139/51 L 100 Laboratory Results Short CBC 11/05/19 11/05/19 11/05/19 Range/Units 10:30 10:30 17:54 WBC 3.71 L (4.8-10.8) K/uL Hgb 12.9 (12.0-16.0) g/dL Hct 37.8 (37-47) % Plt Count 145 (130-400) K/uL Lactate 2.2 H* 0.8 (0.4-2.0) mmol/L BMP 11/05/19 10:30 Sodium 131 L Potassium 3.0 L Chloride 93 L Carbon Dioxide 21 BUN 11 Creatinine 1.15 Glucose 96 Calcium 9.1 Cardiac Enzymes 11/05/19 Range/Units 10:30 Troponin I < 0.015 (0-0.045) ng/ml Liver Function 11/05/19 Range/Units 10:30 Total Bilirubin 1.9 H (0.2-1) mg/dl AST 28 (15-37) U/L ALT 25 (12-78) U/L Alkaline Phosphatase 101 (45-117) U/L Albumin 3.7 (3.4-5.0) gm/dl Urine 11/05/19 Range/Units 13:20 Urine Color Yellow Urine Appearance Clear (Clear) Urine pH 5.5 (4.5-7.5) Ur Specific [place] 1.031 H (1.000-1.030) Urine Protein Negative (Negative) Urine Glucose (UA) Negative (Negative) Diagnostic Findings LUMBAR SPINE CT IMPRESSION: 1. Moderate degenerative disc change. 2. No acute process. HEAD CT IMPRESSION: No acute intracranial abnormality. No change from the prior exam. CXR IMPRESSION: No acute process. CHEST CTA IMPRESSION: No evidence for pulmonary embolus. Additional findings as described above. CT ABD/PELVIS IMPRESSION: 1. No acute process within the abdomen or pelvis. 2. Suspected cirrhosis. 3. No bowel obstruction. Submucosal fat deposition of the right colon which is chronic. 4. Mild heterogeneous enhancement of the kidneys which is of doubtful significance however could be correlated with urinalysis to exclude the possibility of pyelonephritis. Code Status & VTE Plan Code Status Patient is a full code as per my discussion with her. VTE Prophylaxis Plan VTE Prophylaxis will be ordered: Yes Supervising Physician Co-Signing Physician Notes I have seen and examined the patient and have discussed the case with the provider above. I agree with the assessment and plan as stated with the following exceptions. Ms. Rivas is a 59 yo F with a history of chronic back and neck pain who suffers from depression and a h/o traumatic brain injury. Her partner has recently been hospitalized and she has shouldered the burden of [employer] chores recently. She consistently takes baclofen TID, Hydrocodone in the morning and valium TID in addition to other mood stabilizing medications such as Cymbalta and buspirone. She reliably drinks 4-5 beers/day with last reported drink being yesterday. As noted above, she was recently started on gabapentin and felt symptoms that are consistent with adverse drug reactions known to this medication. Specifically she reports lightheadedness with walking. She does report insomnia for the past couple of nights, also. She apparently was more sedated and lethargic in the ER, however, when I saw her on the floor she was mentating clearly and was conversing well. She does have a slight amount of word-finding issues but this may also have been related to memory loss which has affected her in the past. She was quick to remind me about her correct pain regimen including the need for hydrocodone in the morning. Neuro exam was normal including a normal finger-to nose. Gait was not assessed 2/2 fall risk. No myoclonic jerking or tremors were noted and heart and lung exam was normal. No gross focal neurologic deficits were seen. Agree with plan to continue her home medications, holding gabapentin as symptoms are consistent with known adverse drug profile of this medication. Cont to monitor closely for signs of alcohol withdrawal which are not currently present. Moses, DO
[2019-11-05] MEDS: SODIUM CHLORIDE 0.9% 1000ML 1,000 ML IV SCH (19:44)
[2019-11-05] MEDS: UMECLIDINIUM/VILANTEROL 62.5/25MCG 7 PUFFS/INHALER INH SCH (19:45)
[2019-11-05] MEDS: POTASSIUM CHLORIDE 20 MEQ TABCR PO SCH ×2 (19:45→22:16)
[2019-11-05] MEDS: levETIRAcetam 250 MG TAB PO SCH (19:45)
[2019-11-05] MEDS: ENOXAPARIN INJ 40 MG/0.4 ML SYR SQ SCH (19:46)
[2019-11-06 06:28] LABS: Hematocrit (blood only) 37.7 % (37-47); Hemoglobin 12.2 g/dL (12.0-16.0); Mean Corpuscular Hemoglobin 31.5 pg (25-34); Mean Corpuscular Hgb Conc 32.4 g/dL (32-36); Mean Corpuscular Volume 97.4 fL (80-100); Platelet Count 117 K/uL (130-400); RDW Coefficient of Variation 14.8 % (11.5-14.5); RDW Standard Deviation 52.4 fL (36.4-46.3); Red Blood Count 3.87 M/uL (4.2-5.4); White Blood Count 2.59 K/uL (4.8-10.8)
[2019-11-06 07:07] LABS: BUN Creatinine Ratio 7.8 (10-20); Calcium 8.8 mg/dl (8.5-10.1); Creatinine Clr Calc Pharmacy 73.7 ml/min; Est GFR (African American) 98.8; Est GFR (Non-African American) 85.3; Magnesium 2.3 mg/dl (1.8-2.4); Potassium 4.2 mmol/L (3.5-5.1)
[2019-11-06] MEDS: BACLOFEN 20 MG TAB PO PRN ×2 (08:30→20:13)
[2019-11-06] MEDS: SODIUM CHLORIDE 0.9% 1000ML 1,000 ML IV SCH ×2 (08:30→19:21)
[2019-11-06] MEDS: METOPROLOL SUCC 50MG EXT REL TAB PO SCH (08:31)
[2019-11-06] MEDS: PANTOprazole 40 MG TAB PO SCH (08:31)
[2019-11-06] MEDS: FOLIC ACID 1 MG TAB PO SCH (08:31)
[2019-11-06] MEDS: THIAMINE HCL 100 MG TAB PO SCH (08:31)
[2019-11-06] MEDS: levETIRAcetam 250 MG TAB PO SCH ×2 (08:31→20:13)
[2019-11-06] MEDS: HYDROCODONE/ACETAMINOPHEN 10/325 TAB PO PRN (15:40)
--- NOTE | 2019-11-06 16:01 | Hospitalist Progress Note ---
Date of Service November 06, 2019 Assessment & Plan (1) Toxic encephalopathy: Patient admitted with altered mental status, confusion Possible metabolic/toxic encephalopathy secondary to polypharmacy Patient takes multiple meds including sedative narcotics and SSRI for her chronic pain symptoms Which includes baclofen/Vicodin/diazepam/BuSpar/duloxetine Follows at [facility] pain management clinic Also drinks alcohol: 5 beer a day Patient was seen at the pain management clinic and started on the gabapentin Which led to increase confusion, disorientation, lethargy In the ER CT head negative for any acute findings, no focal deficit noted Gabapentin discontinued, added to patient's allergy list Vicodin/BuSpar duloxetine/baclofen, was on hold yesterday Patient is more awake and alert and oriented, Home meds are resumed to prevent withdrawal symptoms (2) Alcoholism: -Patient reports drinking 5 beers/day -Alcohol level negative -Last drink yesterday per patient -No signs of active withdrawal -Alcohol withdrawal " at risk" protocol ordered -Continue thiamine and folic acid (3) Chronic hyponatremia: -Likely due to chronic alcoholism -Given normal saline, sodium level normalized today (4) Hypokalemia: (5) Hypomagnesemia: Possible secondary to chronic alcoholism -Replaced Follow electrolytes (6) Seizure disorder: -Continue Keppra No seizure-like activity noted by patient's significant other at home No episode on admission in hospital stay (7) COPD (chronic obstructive pulmonary disease): -Appears stable, no signs of acute exacerbation (8) DVT prophylaxis: -SQ Lovenox CODE STATUS: Full code Disposition: Lives at home with her significant other, independent in her ADLs PT OT evaluation To discharge home when medically stable Admission and Anticipated Discharge Date Admission Date: November 05, 2019 Subjective Patient is awake and alert, oriented to place and person Reports of having headache, still feels foggy No weakness or paresthesia, no cough no chest pain no fever chills Review of Systems Review of Systems: All systems reviewed & are unremarkable except as noted in HPI & below Constitutional: + fatigue and + weakness; no fever, no chills and no body aches Respiratory: no cough, no dyspnea, no dyspnea on exertion, no sputum production and no wheezing Cardiovascular: + lightheadedness; no chest pain, no dyspnea, no orthopnea, no palpitations, no syncope and no edema Gastrointestinal: no abdominal pain, no nausea and no vomiting Neurologic: + generalized weakness and + headache(s); no localized weakness, no abnormal movements, no seizure-like activity, no dizziness, no syncope, no abnormal speech and no confusion Psychiatric: no confusion Physical Exam Constitutional: WD/WN, vitals as above + ill appearing; no acute distress Eyes: PERRL, conjunctivae normal, anicteric sclerae ENMT: external ear and nose normal, oropharynx normal Neck: trachea midline, no thyromegaly Respiratory: normal respiratory effort, lungs clear to auscultation Cardiovascular: RRR, no murmur, no edema Gastrointestinal (Abdomen): normal bowel sounds, soft, nontender, no hepatosplenomegaly Musculoskeletal: no cyanosis or clubbing, extremities motor strength 5/5 Skin: no rashes, warm and dry Neurologic: PERRL, EOMI, accommodation nl, no face palsy, no dysarthria Psychiatric: A+Ox3, euthymic affect Results & Data ([facility]) Vital Signs (Past 12 Hours) Vital Signs Temp Pulse Pulse Pulse Resp BP BP 11/06/19 15:43 64 11/06/19 15:21 36.3 C L 71 18 137/85 11/06/19 11:27 36.8 C 64 17 128/75 11/06/19 08:46 78 11/06/19 07:40 36.8 C 75 17 115/76 Pulse Ox 11/06/19 15:43 11/06/19 15:21 96 11/06/19 11:27 99 11/06/19 08:46 11/06/19 07:40 95 Diagnostic Findings LUMBAR SPINE CT IMPRESSION: 1. Moderate degenerative disc change. 2. No acute process. HEAD CT IMPRESSION: No acute intracranial abnormality. No change from the prior exam. CXR IMPRESSION: No acute process. CHEST CTA IMPRESSION: No evidence for pulmonary embolus. Additional findings as described above. CT ABD/PELVIS IMPRESSION: 1. No acute process within the abdomen or pelvis. 2. Suspected cirrhosis. 3. No bowel obstruction. Submucosal fat deposition of the right colon which is chronic. 4. Mild heterogeneous enhancement of the kidneys which is of doubtful significance however could be correlated with urinalysis to exclude the possibility of pyelonephritis.
[2019-11-06] MEDS: ENOXAPARIN INJ 40 MG/0.4 ML SYR SQ SCH (20:13)
[2019-11-06] MEDS: UMECLIDINIUM/VILANTEROL 62.5/25MCG 7 PUFFS/INHALER INH SCH (20:13)
[2019-11-07] MEDS: HYDROCODONE/ACETAMINOPHEN 10/325 TAB PO PRN (06:20)
[2019-11-07] MEDS: BACLOFEN 20 MG TAB PO PRN (06:20)
[2019-11-07] MEDS: SODIUM CHLORIDE 0.9% 1000ML 1,000 ML IV SCH (06:22)
[2019-11-07] MEDS: METOPROLOL SUCC 50MG EXT REL TAB PO SCH (07:42)
[2019-11-07] MEDS: THIAMINE HCL 100 MG TAB PO SCH (07:42)
[2019-11-07] MEDS: levETIRAcetam 250 MG TAB PO SCH (07:43)
[2019-11-07] MEDS: FOLIC ACID 1 MG TAB PO SCH (07:44)
[2019-11-07] MEDS: PANTOprazole 40 MG TAB PO SCH (07:45)
[2019-11-07] MEDS: ALBUTEROL HFA 8 GM INHALER INH SCH ×2 (08:47→13:35)
--- NOTE | 2019-11-07 16:54 | Hospitalist Progress Note ---
Date of Service November 07, 2019 Assessment & Plan (1) Toxic encephalopathy: Patient admitted with altered mental status, confusion Possible metabolic/toxic encephalopathy secondary to polypharmacy Symptom has resolved completely Became alert, no unsteadiness, speech is fluent, memory intact, walking on the hallway Patient is counseled regarding polypharmacy, takes multiple meds including sedative narcotics and SSRI for her chronic pain symptoms: baclofen/Vicodin/diazepam/BuSpar/duloxetine Counseling provided for complete alcohol abstinence she is on chronically multiple pain medications Pain medications with alcohol combination can cause significant sedation, disorientation, respiratory failure/coma/ Patient verbalized understanding Gabapentin discontinued Clinically stable to be discharged home (2) Alcoholism: -Patient reports drinking 5 beers/day -Alcohol level negative No alcohol withdrawal symptoms noted during hospital admission Patient is advised strict alcohol abstinence, risk of polypharmacy/increased risk of adverse effects/sedation with combination of alcohol and her chronic pain meds - (3) Chronic hyponatremia: -Likely due to chronic alcoholism -Given normal saline, sodium level normalized today (4) Hypokalemia: (5) Hypomagnesemia: Possible secondary to chronic alcoholism -Replaced Follow electrolytes (6) Seizure disorder: -Continue Keppra No seizure-like activity noted by patient's significant other at home No episode on admission in hospital stay (7) COPD (chronic obstructive pulmonary disease): -Stable, no shortness of breath wheeze or cough (8) DVT prophylaxis: -SQ Lovenox CODE STATUS: Full code Disposition: Stable to be discharged home today Admission and Anticipated Discharge Date Admission Date: November 05, 2019 Subjective Patient seen ambulating in the hallway, completely awake and alert and oriented Denies of any headache no blurred vision, no weakness or paresthesia Confusion noted No fever chills cough or hypoxia Patient feels she is back to her baseline, eager to be discharged home today Review of Systems Review of Systems: All systems reviewed & are unremarkable except as noted in HPI & below Constitutional: no fever, no chills and no fatigue Cardiovascular: no chest pain, no palpitations, no lightheadedness and no syncope Neurologic: no unsteadiness, no lack of coordination, no tremor(s), no headache(s) and no confusion Psychiatric: no behavioral changes and no confusion Physical Exam Constitutional: WD/WN, vitals as above no acute distress Eyes: PERRL, conjunctivae normal, anicteric sclerae ENMT: external ear and nose normal, oropharynx normal Neck: trachea midline, no thyromegaly Respiratory: normal respiratory effort, lungs clear to auscultation Cardiovascular: RRR, no murmur, no edema Gastrointestinal (Abdomen): normal bowel sounds, soft, nontender, no hepatosplenomegaly Musculoskeletal: no cyanosis or clubbing, extremities motor strength 5/5 Skin: no rashes, warm and dry Neurologic: PERRL, EOMI, accommodation nl, no face palsy, no dysarthria Psychiatric: A+Ox3, euthymic affect Results & Data ([facility]) Vital Signs (Past 12 Hours) Vital Signs Temp Pulse Pulse Resp BP BP Pulse Ox 11/07/19 14:44 36.8 C 64 68 17 140/72 128/75 98 11/07/19 12:25 36.8 C 68 17 140/72 98 11/07/19 07:22 36.8 C 72 17 155/80 H 97
[2019-11-07 20:59] LABS: 7-Aminoclonaz, Confirm NEGATIVE ng/mL (<25); Codeine Urine NEGATIVE ng/mL (<50); Hydro-Alp Ur, GC/MS NEGATIVE ng/mL (<25); Hydrocodone Urine 1090 ng/mL (<50); Hydromor Urine 52 ng/mL (<50); Hydroxyethylflurazepam, Conf NEGATIVE ng/mL (<50); Hydroxymidazolam Ur, GC/MS NEGATIVE ng/mL (<50); Hydroxytriazolam NEGATIVE ng/mL (<50); Lorazepam, Ur GC/MS NEGATIVE ng/mL (<50); Morphine Urine 1920 ng/mL (<50); Nordiazepam, Confirm 174 ng/mL (<50); Norhydrocodone Conf Ur 1480 ng/mL (<50); Noroxycodone Urine NEGATIVE ng/mL (<50); Oxazepam Ur, GC/MS 245 ng/mL (<50); Oxycodone Urine NEGATIVE ng/mL (<50); Oxymorph Urine NEGATIVE ng/mL (<50); Temazepam, Confirm 486 ng/mL (<50)
--- NOTE | 2019-11-09 12:15 | Discharge Summary ---
Date of Service November 09, 2019 Admission HPI Per Admitting Provider 59-year-old female who presents the ED with altered mental status. Some history is obtained from patient's friend who is at the bedside. She read me a text message from patient's partner who described what she observed this morning. Patient has chronic back pain and is currently being followed by [facility] pain management. She was seen on 11/02 and was started on gabapentin. Patient took her first dose was yesterday. Per her usual routine, patient took a baclofen and Vicodin this morning for her chronic back pain. Shortly after, patient became confused and "was not making any sense." She was placing the TV remote into a bag along with her pills. EMS was called and patient was brought to the ED for further evaluation. There was no reported loss of consciousness or seizure-like activity. Patient reports she otherwise has been feeling well recently. No other recent illnesses, fevers, chills. She denies chest pain and shortness of breath. No lightheadedness, dizziness, diaphoresis, syncopal events. She denies abdominal pain, nausea, vomiting, diarrhea. No urinary symptoms. In the ED, labs show mild hyponatremia, hypokalemia, hypomagnesemia. Initial lactate was 2.2 and after IVF, improved to 0.8. Head CT, lumbar spine CT, chest CTA, CT ABD/pelvis are all negative for acute findings. Patient was given IV magnesium replacement, 2 doses of IV morphine, IV Zofran, IVF. Principal Diagnosis CONFUSION -RESOLVED , POSSIBLE ADVERSE DRUG REACTION Discharge Exam Constitutional WD/WN, vitals as above no acute distress Eyes PERRL, conjunctivae normal, anicteric sclerae ENMT external ear and nose normal, oropharynx normal Neck trachea midline, no thyromegaly Respiratory normal respiratory effort, lungs clear to auscultation Cardiovascular RRR, no murmur, no edema Gastrointestinal (Abdomen) normal bowel sounds, soft, nontender, no hepatosplenomegaly Musculoskeletal no cyanosis or clubbing, extremities motor strength 5/5 Skin no rashes, warm and dry Neurologic PERRL, EOMI, accommodation nl, no face palsy, no dysarthria Psychiatric A+Ox3, euthymic affect Discharge Data Allergies Allergy/AdvReac Type Severity Reaction Status Date / Time gabapentin AdvReac Severe Confusion Verified 11/06/19 16:52 acetaminophen [From Tylenol] AdvReac Unknown Unknown Unverified 11/05/19 10:48 ibuprofen AdvReac Unknown Unverified 11/05/19 10:48 Consultations 11/05/19 15:57 ED Decision to Admit Stat Ordered Studies 11/05/19 09:55 CT abd pelvis IV con only Stat CT angio chest PE protocol Stat CT head/brain wo con Stat CT lumbar spine w con Stat Hospital Course (1) Toxic encephalopathy: Patient admitted with altered mental status, confusion Possible metabolic/toxic encephalopathy secondary to polypharmacy Symptom has resolved completely Became alert, no unsteadiness, speech is fluent, memory intact, walking on the hallway Patient is counseled regarding polypharmacy, takes multiple meds including sedative narcotics and SSRI for her chronic pain symptoms: baclofen/Vicodin/diazepam/BuSpar/duloxetine Counseling provided for complete alcohol abstinence she is on chronically multiple pain medications Pain medications with alcohol combination can cause significant sedation, disorientation, respiratory failure/coma/ Patient verbalized understanding Gabapentin discontinued Clinically stable to be discharged home (2) Alcoholism: -Patient reports drinking 5 beers/day -Alcohol level negative No alcohol withdrawal symptoms noted during hospital admission Patient is advised strict alcohol abstinence, risk of polypharmacy/increased risk of adverse effects/sedation with combination of alcohol and her chronic pain meds - (3) Chronic hyponatremia: -Likely due to chronic alcoholism -Given normal saline, sodium level normalized today (4) Hypokalemia: (5) Hypomagnesemia: Possible secondary to chronic alcoholism -Replaced Follow electrolytes (6) Seizure disorder: -Continue Keppra No seizure-like activity noted by patient's significant other at home No episode on admission in hospital stay (7) COPD (chronic obstructive pulmonary disease): -Stable, no shortness of breath wheeze or cough (8) DVT prophylaxis: -SQ Lovenox CODE STATUS: Full code Disposition: Stable to be discharged home today Total Time Total Time Spent Total Time Spent (In Minutes): 35 minutes Total Time Includes: Examination of the Patient, Discharge Planning and Medication Reconciliation Discharge Plan Discharge Items Patient Disposition: Home - Self-Care Reason For Visit: ALTERED MENTAL STATUS Discharge Diagnosis: CONFUSION -RESOLVED , POSSIBLE ADVERSE DRUG REACTION Condition on Discharge: Fair Activity: Resume your previous activity Non-emergency contact: Primary Care Provider Call non-emergency contact if: you have any medication questions Follow-up/Referrals: Manuelito Caal, [Primary Care Provider] - (Please call your physician's office to schedule a follow-up appointment.) Diet: Regular Addtl Attending Provider Instructions: Do not take gabapentin, Hospital follow-up with family physician in 1 week It is very important for total abstinence from alcohol , you are on multiple medications for chronic pain syndrome, drinking alcohol can cause you to have severe drug effect, leading to confusion disorientation/Coma / Pending Studies at Discharge: No Stand-Alone Forms: My [facility], Smoking Cessation Medications and DC Order Prescriptions: Continued furosemide [Lasix] 40 mg tablet 40 mg PO QAM RF: 0 buspirone 5 mg tablet 5 mg PO TID RF: 0 metoprolol succinate [Toprol XL] 50 mg tablet extended release 24 hr 150 mg PO QAM RF: 0 ondansetron HCl 4 mg Tablet 4 mg PO Q6H PRN (Reason: Nausea) RF: 0 sumatriptan succinate [Imitrex] 50 mg Tablet 0 mg PO .COMPLEX RF: 0 thiamine HCl (vitamin B1) [Vitamin B-1] 100 mg Tablet 100 mg PO QAM RF: 0 hydrocodone-acetaminophen 10-325 mg tablet 1 tab PO QAM RF: 0 triamcinolone acetonide 0.1 % cream 1 applic TOPICAL BID PRN (Reason: BREAKOUTS) RF: 0 baclofen 20 mg tablet 20 mg PO TID RF: 0 diazepam [Valium] 2 mg tablet 2 mg PO Q12 PRN (Reason: Anxiety) RF: 0 omeprazole 20 mg Capsule,Delayed Release(Dr/Ec) 20 mg PO QAM RF: 0 folic acid 1 mg Tablet 1 mg PO QAM RF: 0 albuterol sulfate 90 mcg/actuation Hfa Aerosol Inhaler 2 inh INHALATION QID RF: 0 duloxetine 60 mg capsule,delayed release(DR/EC) 120 mg PO QAM RF: 0 levetiracetam [Keppra XR] 500 mg tablet extended release 24 hr 750 mg PO BID RF: 0 Anoro Ellipta 62.5-25 mcg/actuation blister with device 1 ea INHALATION HS RF: 0 Discontinued gabapentin [Neurontin] 300 mg capsule 300 mg PO UD RF: 0 Discharge Orders: Discharge Order (Routine); Ordered 11/07/19 Ordered By: Rachel Holm Admission Data Admit Date/Time: 11/05/19 16:51 Attending Provider: Rachel Holm Admit Provider: Deann Lopes Primary Care Provider: Manuelito Caal Other Interventions: Discharge Summary Assessment (RN) Last Done: 11/07/19 14:44 DC Date/Time DO NOT enter until pt leaves facility: 11/07/19 15:12
== END 2019-11-07 15:12 | disposition home or self-care (01) | DRG 92 ==
LOC: ED 09:16 → SUATTDRO 16:51 → 2W 16:51

== ENCOUNTER 2021-06-24 17:54 | Inpatient (IN) ==
--- NOTE | 2021-06-24 18:17 | Emergency Department Note ---
Impression & Plan Toxic encephalopathy, Alcoholism, Metabolic acidosis ED Provider Note NAME: JUHI WHITFIELD AGE: 61 SEX: F ARRIVES VIA: Ambulance INFORMANT: Patient, ED PROVIDER(S): Keenan Churchill MD CHIEF COMPLAINT: AMS PLAN: Disposition: Admit MEDICAL DECISION MAKING: The patient is a 61-year-old woman with a past medical history of alcoholism, seizure disorder on Keppra, COPD, history of admission for toxic encephalopathy secondary to polypharmacy who presents emergency department for altered mental status after the patient was found wandering around in public confused. The patient is alert and oriented to self and place but does have mild confusion. She is a poor historian. She reports she did have 2 beers this morning but denies drinking every day. On arrival the patient is chronically ill-appearing but no acute distress, afebrile stable vital signs. She appears clinically dry. Neck is supple full range of motion. She has subtle dysarthria dysarthria but is understood and has no overt aphasia. She has no focal weakness of her extremities. Reflexes within normal limits. No clonus. EKG without overt acute ischemia. Chest x-ray negative for acute cardiopulmonary process most likely atelectasis. WBC 2.75K nonspecific and similar prior range of values. H/H and platelets within normal limits. Chemistry with bicarb of 15 with anion gap of 13. AST marginally elevated at 38 and otherwise LFTs without significant normality. Electrolytes unremarkable. Ammonia was not elevated. Troponin negative/undetectable. Lipase within normal limits. TSH within normal limits. UA without convincing evidence of infection. Urine drug screen was positive for benzodiazepines. COVID-[address] of the head negative for acute process. Patient is a patient did appear somewhat improved after IV thiamine and IVF hydration with banana bag. However still confused/encephalopathic appearing. She did agree with plan for admission. Case was discussed with Dr. Gleason, [facility] hospitalist, who will evaluate the patient for admission. Triage Nursing notes reviewed and agree them. Prior medical records reviewed Vital Signs: reviewed and remarkable for no significant abnormalities Differential diagnosis: Infection, hypoglycemia, electrolyte abnormalities, overdose, toxicologic, cardiac sources, intracerebral event, neurologic, trauma, as well as other pathologies. ER treatment provided: See below. Diagnostics interpreted by me: ECG: Normal sinus rhythm, 91 bpm, no ectopy, nonspecific T wave abnormality, no overt ST elevation or depression, QTC 464, QRS 78. Cardiac Monitoring: An order for continuous cardiac monitoring was placed and demonstrated Normal sinus rhythm, 91 bpm, no ectopy. Laboratory studies: See below Imaging studies: See below Consultation(s): Case was discussed with Dr. Gleason, [facility] hospitalist, who will evaluate the patient for admission. HPI: The patient is a 61-year-old woman with a past medical history of alcoholism, seizure disorder on Keppra, COPD, history of admission for toxic encephalopathy secondary to polypharmacy who presents emergency department for altered mental status after the patient was found wandering around in public confused. The patient is alert and oriented to self and place but does have mild confusion. She is a poor historian. She reports she did have 2 beers this morning but denies drinking every day. ROS: See above HPI for pertinent positives & negatives. A total of 10 systems reviewed and were otherwise negative. PAST MEDICAL HISTORY:See Below PAST SURGICAL HISTORY:See Below FAMILY HISTORY:See Below SOCIAL HISTORY:See Below HOME MEDICATIONS:See Below ALLERGIES:See Below VITALS:See Below PHYSICAL EXAMINATION: GENERAL: Awake, alert, chronically ill-appearing, in no distress HENT: Normocephalic, atraumatic, ?adhesive on scalp. Oropharynx with dry mucous membranes and otherwise unremarkable. EYES: Normal conjunctiva. Sclera non-icteric. NECK: Supple. No nuchal rigidity. FROM. No JVD. RESPIRATORY: Clear to auscultation. CARDIAC: Regular rate, normal rhythm. Extremities warm and well perfused. Pulses equal. ABDOMEN: Soft, non-distended. No tenderness to palpation. No rebound or guarding. No masses. RECTAL: Deferred. MUSCULOSKELETAL: Chest examination reveals no tenderness. The back is symmetrical on inspection without obvious abnormality. There is no CVA tenderness to palpation. No joint edema. LOWER EXTREMITIES: Calves are equal size bilaterally and non-tender. No edema. No discoloration. NEURO: Mild dysarthria but no overt aphasia. Slightly tremulous. No focal motor deficits noted. Reflexes within normal limits. No clonus. SKIN: No rash or jaundice noted. Keenan Churchill MD Past Med/Surg History Medical History (Updated 06/25/21 @ 02:22 by Keenan Churchill MD) Alcoholism Chronic hyponatremia Chronic pancreatitis COPD (chronic obstructive pulmonary disease) Displacement 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 (08/22/11) History of craniotomy Due to subdural hematoma from fall History of tobacco abuse Nonischemic cardiomyopathy Seizure disorder (05/16/12) Severe pulmonary arterial systolic hypertension Uterine leiomyoma (07/18/11) Surgical History History of arthroscopic procedure on shoulder History of onel hole surgery History of carpal tunnel surgery History of cholecystectomy History of hysterectomy S/P cervical spinal fusion Family History Mother Hypertension Social History Smoking Status: Former smoker Tobacco Type: Cigarettes Second Hand Exposure: No; Do You Dip or Chew Tobacco: No; Tobacco Cessation Education Requested by Patient: No Hx Alcohol Use: Yes Alcohol type: beer Alcohol Intake Frequency Comment: 5 beers/day Hx Substance Use: No (pt stated no but then stated "I take Valium for anxiety") Preferred Language: Ukrainian Communication Ability: Effective Statistics Professor Required: No Beliefs That Will Affect Care: None Current Living Situation: Family Current Living Situation Comment: pt did not answer the question clearly Feels Safe at Home: Yes Safety Concerns: Feels Safe At This Time Assistive Devices: Glasses Allergies Allergies Allergy/AdvReac Type Severity Reaction Status Date / Time acetaminophen [From Tylenol] Allergy Unknown Unknown Verified 06/24/21 18:23 ibuprofen Allergy Unknown Unknown Verified 06/24/21 18:23 gabapentin AdvReac Severe Confusion Verified 06/24/21 18:23 Home Meds Home Medications Medication Instructions Recorded Confirmed albuterol sulfate 90 mcg/actuation 2 puff INHALATION QID PRN 09/20/19 06/24/21 aerosol inhaler metoprolol succinate 50 mg 150 mg PO QAM 09/20/19 06/24/21 tablet,extended release 24 hr (Toprol XL) triamcinolone acetonide 0.1 % 1 applic TOPICAL BID PRN 09/20/19 06/24/21 topical cream umeclidinium 62.5 mcg-vilanterol 1 inh INHALATION HS 09/20/19 06/24/21 25 mcg/actuation powdr for inhalation (Anoro Ellipta) benzonatate 100 mg capsule 100 mg PO TID PRN 11/25/19 06/24/21 duloxetine 20 mg capsule,delayed 20 mg PO QAM 11/25/20 06/24/21 release vitamin B complex 1 tab PO QAM 11/25/20 06/24/21 ibuprofen 200 mg tablet 400 mg PO Q6H PRN 06/24/21 06/24/21 Previous Rx's Medication Instructions Recorded docusate sodium 100 mg capsule 100 mg PO BID #30 cap 11/26/20 (Colace) sennosides 8.6 mg tablet (Senokot) 8.6 mg PO HS #30 tab 11/26/20 Results & Data (ED) Vital Signs Vital Signs - 24 hr 06/24/21 17:47 06/24/21 18:14 06/24/21 18:20 Temperature 37.1 C Temperature Source Oral Pulse Rate 90 91 H 90 Pulse Rate from SpO2 Sensor 91 H 90 Pulse Rhythm Regular Pulse Strength Normal Respiratory Rate 20 18 17 Respiratory Effort / Characteristics Non-Labored Respiratory Depth Normal Respiratory Pattern Regular Blood Pressure 127/65 Blood Pressure Mean 85 Blood Pressure Position Sitting Pulse Oximetry 100 100 100 Oxygen Delivery Method Room Air Sepsis Recent Fever Within 48 Hours No Sepsis New/Unexplained Change in Mental Status No Sepsis Action Taken by Nursing No Action Required 06/24/21 18:30 06/24/21 18:33 06/24/21 18:40 Temperature Temperature Source Pulse Rate 88 72 88 Pulse Rate from SpO2 Sensor 89 89 Pulse Rhythm Pulse Strength Respiratory Rate 21 20 19 Respiratory Effort / Characteristics Respiratory Depth Respiratory Pattern Blood Pressure 113/62 Blood Pressure Mean 79 Blood Pressure Position Pulse Oximetry 98 97 100 Oxygen Delivery Method Room Air Sepsis Recent Fever Within 48 Hours Sepsis New/Unexplained Change in Mental Status Sepsis Action Taken by Nursing 06/24/21 18:50 06/24/21 19:00 06/24/21 19:10 Temperature Temperature Source Pulse Rate 89 89 94 H Pulse Rate from SpO2 Sensor 89 95 H Pulse Rhythm Pulse Strength Respiratory Rate 14 14 25 H Respiratory Effort / Characteristics Respiratory Depth Respiratory Pattern Blood Pressure 124/64 Blood Pressure Mean 84 Blood Pressure Position Pulse Oximetry 100 100 100 Oxygen Delivery Method Sepsis Recent Fever Within 48 Hours Sepsis New/Unexplained Change in Mental Status Sepsis Action Taken by Nursing 06/24/21 19:41 06/24/21 20:00 06/24/21 21:00 Temperature Temperature Source Pulse Rate 90 88 89 Pulse Rate from SpO2 Sensor Pulse Rhythm Pulse Strength Respiratory Rate 22 14 15 Respiratory Effort / Characteristics Respiratory Depth Respiratory Pattern Blood Pressure 120/66 120/62 122/79 Blood Pressure Mean 84 81 93 Blood Pressure Position Pulse Oximetry 100 100 100 Oxygen Delivery Method Sepsis Recent Fever Within 48 Hours Sepsis New/Unexplained Change in Mental Status Sepsis Action Taken by Nursing 06/24/21 21:16 Temperature 36.8 C Temperature Source Oral Pulse Rate Pulse Rate from SpO2 Sensor Pulse Rhythm Pulse Strength Respiratory Rate Respiratory Effort / Characteristics Respiratory Depth Respiratory Pattern Blood Pressure Blood Pressure Mean Blood Pressure Position Pulse Oximetry Oxygen Delivery Method Sepsis Recent Fever Within 48 Hours Sepsis New/Unexplained Change in Mental Status Sepsis Action Taken by Nursing Laboratory Data Attestation: I reviewed the patient's lab results. Result diagrams: 06/24/21 18:15 06/24/21 18:15 Lab Results 06/24/21 06/24/21 06/24/21 Range/Units 18:15 18:15 18:15 WBC 2.75 L (4.8-10.8) K/uL RBC 3.86 L (4.2-5.4) M/uL Hgb 13.3 (12.0-16.0) g/dL Hct 41.0 (37-47) % MCV 106.2 H (80-100) fL MCH 34.5 H (25-34) pg MCHC 32.4 (32-36) g/dL RDW Std Deviation 61.2 H (36.4-46.3) fL RDW Coeff of [place] 15.9 H (11.5-14.5) % Plt Count 173 (130-400) K/uL MPV 9.0 (7.4-10.4) fL Immature Gran % (Auto) 0.4 % Neut % (Auto) 50.1 % Lymph % (Auto) 33.5 % Weld % (Auto) 13.8 % Eos % (Auto) 1.5 % Baso % (Auto) 0.7 % Neut # (Auto) 1.38 L (1.4-6.5) K/uL Lymph # (Auto) 0.92 L (1.2-3.4) K/uL Weld # (Auto) 0.38 (0.11-0.59) K/uL Eos # (Auto) 0.04 (0-0.5) K/uL Baso # (Auto) 0.02 (0-0.2) K/uL Immature Gran # (Auto) 0.01 (0.00-0.02) K/uL PT Cancelled INR Cancelled APTT (21.0-31.0) Seconds PTT Ratio Sodium 135 L (136-145) mmol/L Potassium 3.6 (3.5-5.1) mmol/L Chloride 106 (98-107) mmol/L Carbon Dioxide 15 L (21-32) mmol/L Anion Gap 13.0 H (3-11) BUN 9 (7-18) mg/dl Creatinine 0.94 (0.6-1.2) mg/dl Est Cr Clr Drug Dosing Not Reportable Est GFR ( Amer) 75.4 ml/min Est GFR (Non-Af Amer) 65.0 ml/min BUN/Creatinine Ratio 9.6 L (10-20) Glucose 95 (70-99) mg/dl Calcium 8.6 (8.5-10.1) mg/dl Phosphorus 3.3 (2.5-4.9) mg/dl Magnesium 1.9 (1.8-2.4) mg/dl Total Bilirubin 0.4 (0.2-1) mg/dl Direct Bilirubin < 0.1 (0-0.2) mg/dl AST 38 H (15-37) U/L ALT 18 (12-78) U/L Alkaline Phosphatase 97 (45-117) U/L Ammonia (11-32) umol/L Troponin I < 0.015 (0-0.045) ng/ml Total Protein 8.7 H (6.4-8.2) gm/dl Albumin 3.9 (3.4-5.0) gm/dl Globulin 4.8 H (2.5-4.0) gm/dl Albumin/Globulin Ratio 0.8 L (0.9-2) Lipase 158 (73-393) U/L TSH 0.996 (0.300-4.500) uIu/ml Urine Color Urine Appearance (Clear) Urine pH (4.5-7.5) Ur Specific [place] (1.000-1.030) Urine Protein (Negative) Urine Glucose (UA) (Negative) Urine Ketones (Negative) Urine Blood (Negative) Urine Nitrite (Negative) Urine Bilirubin (Negative) Urine Urobilinogen (Negative) Ur Leukocyte Esterase (Negative) Urine Opiates Screen (Neg) Ur Methadone, Qual (Neg) Urine Barbiturates (Neg) Ur Phencyclidine (PCP) (Neg) U Amphetamin/Meth Scrn (Neg) MDMA (Ecstasy) Screen (Neg) U Benzodiazepines Scrn (Neg) Ur Cocaine Metabolite (Neg) U Marijuana (THC) Screen (Neg) Ethyl Alcohol mg/dL (0-3) mg/dl COVID-19 Eval Order SARS-CoV-2 (PCR) (Negative) 06/24/21 06/24/21 06/24/21 Range/Units 18:34 18:34 18:48 WBC (4.8-10.8) K/uL RBC (4.2-5.4) M/uL Hgb (12.0-16.0) g/dL Hct (37-47) % MCV (80-100) fL MCH (25-34) pg MCHC (32-36) g/dL RDW Std Deviation (36.4-46.3) fL RDW Coeff of [place] (11.5-14.5) % Plt Count (130-400) K/uL MPV (7.4-10.4) fL Immature Gran % (Auto) % Neut % (Auto) % Lymph % (Auto) % Weld % (Auto) % Eos % (Auto) % Baso % (Auto) % Neut # (Auto) (1.4-6.5) K/uL Lymph # (Auto) (1.2-3.4) K/uL Weld # (Auto) (0.11-0.59) K/uL Eos # (Auto) (0-0.5) K/uL Baso # (Auto) (0-0.2) K/uL Immature Gran # (Auto) (0.00-0.02) K/uL PT INR APTT (21.0-31.0) Seconds PTT Ratio Sodium (136-145) mmol/L Potassium (3.5-5.1) mmol/L Chloride (98-107) mmol/L Carbon Dioxide (21-32) mmol/L Anion Gap (3-11) BUN (7-18) mg/dl Creatinine (0.6-1.2) mg/dl Est Cr Clr Drug Dosing Est GFR ( Amer) ml/min Est GFR (Non-Af Amer) ml/min BUN/Creatinine Ratio (10-20) Glucose (70-99) mg/dl Calcium (8.5-10.1) mg/dl Phosphorus (2.5-4.9) mg/dl Magnesium (1.8-2.4) mg/dl Total Bilirubin (0.2-1) mg/dl Direct Bilirubin (0-0.2) mg/dl AST (15-37) U/L ALT (12-78) U/L Alkaline Phosphatase (45-117) U/L Ammonia (11-32) umol/L Troponin I (0-0.045) ng/ml Total Protein (6.4-8.2) gm/dl Albumin (3.4-5.0) gm/dl Globulin (2.5-4.0) gm/dl Albumin/Globulin Ratio (0.9-2) Lipase (73-393) U/L TSH (0.300-4.500) uIu/ml Urine Color Urine Appearance (Clear) Urine pH (4.5-7.5) Ur Specific [place] (1.000-1.030) Urine Protein (Negative) Urine Glucose (UA) (Negative) Urine Ketones (Negative) Urine Blood (Negative) Urine Nitrite (Negative) Urine Bilirubin (Negative) Urine Urobilinogen (Negative) Ur Leukocyte Esterase (Negative) Urine Opiates Screen (Neg) Ur Methadone, Qual (Neg) Urine Barbiturates (Neg) Ur Phencyclidine (PCP) (Neg) U Amphetamin/Meth Scrn (Neg) MDMA (Ecstasy) Screen (Neg) U Benzodiazepines Scrn (Neg) Ur Cocaine Metabolite (Neg) U Marijuana (THC) Screen (Neg) Ethyl Alcohol mg/dL < 3.0 (0-3) mg/dl COVID-19 Eval Order Covid19 at [facility] SARS-CoV-2 (PCR) NEGATIVE (Negative) 06/24/21 06/24/21 06/24/21 Range/Units 18:59 20:58 21:02 WBC (4.8-10.8) K/uL RBC (4.2-5.4) M/uL Hgb (12.0-16.0) g/dL Hct (37-47) % MCV (80-100) fL MCH (25-34) pg MCHC (32-36) g/dL RDW Std Deviation (36.4-46.3) fL RDW Coeff of [place] (11.5-14.5) % Plt Count (130-400) K/uL MPV (7.4-10.4) fL Immature Gran % (Auto) % Neut % (Auto) % Lymph % (Auto) % Weld % (Auto) % Eos % (Auto) % Baso % (Auto) % Neut # (Auto) (1.4-6.5) K/uL Lymph # (Auto) (1.2-3.4) K/uL Weld # (Auto) (0.11-0.59) K/uL Eos # (Auto) (0-0.5) K/uL Baso # (Auto) (0-0.2) K/uL Immature Gran # (Auto) (0.00-0.02) K/uL PT INR APTT 27.0 (21.0-31.0) Seconds PTT Ratio 1.0 Sodium (136-145) mmol/L Potassium (3.5-5.1) mmol/L Chloride (98-107) mmol/L Carbon Dioxide (21-32) mmol/L Anion Gap (3-11) BUN (7-18) mg/dl Creatinine (0.6-1.2) mg/dl Est Cr Clr Drug Dosing Est GFR ( Amer) ml/min Est GFR (Non-Af Amer) ml/min BUN/Creatinine Ratio (10-20) Glucose (70-99) mg/dl Calcium (8.5-10.1) mg/dl Phosphorus (2.5-4.9) mg/dl Magnesium (1.8-2.4) mg/dl Total Bilirubin (0.2-1) mg/dl Direct Bilirubin (0-0.2) mg/dl AST (15-37) U/L ALT (12-78) U/L Alkaline Phosphatase (45-117) U/L Ammonia < 10.0 L (11-32) umol/L Troponin I (0-0.045) ng/ml Total Protein (6.4-8.2) gm/dl Albumin (3.4-5.0) gm/dl Globulin (2.5-4.0) gm/dl Albumin/Globulin Ratio (0.9-2) Lipase (73-393) U/L TSH (0.300-4.500) uIu/ml Urine Color Yellow Urine Appearance Clear (Clear) Urine pH 5.0 (4.5-7.5) Ur Specific [place] 1.011 (1.000-1.030) Urine Protein Negative (Negative) Urine Glucose (UA) Negative (Negative) Urine Ketones 2+ H (Negative) Urine Blood Negative (Negative) Urine Nitrite Negative (Negative) Urine Bilirubin Negative (Negative) Urine Urobilinogen Negative (Negative) Ur Leukocyte Esterase Negative (Negative) Urine Opiates Screen (Neg) Ur Methadone, Qual (Neg) Urine Barbiturates (Neg) Ur Phencyclidine (PCP) (Neg) U Amphetamin/Meth Scrn (Neg) MDMA (Ecstasy) Screen (Neg) U Benzodiazepines Scrn (Neg) Ur Cocaine Metabolite (Neg) U Marijuana (THC) Screen (Neg) Ethyl Alcohol mg/dL (0-3) mg/dl COVID-19 Eval Order SARS-CoV-2 (PCR) (Negative) 06/24/21 Range/Units 21:02 WBC (4.8-10.8) K/uL RBC (4.2-5.4) M/uL Hgb (12.0-16.0) g/dL Hct (37-47) % MCV (80-100) fL MCH (25-34) pg MCHC (32-36) g/dL RDW Std Deviation (36.4-46.3) fL RDW Coeff of [place] (11.5-14.5) % Plt Count (130-400) K/uL MPV (7.4-10.4) fL Immature Gran % (Auto) % Neut % (Auto) % Lymph % (Auto) % [place] % (Auto) % Eos % (Auto) % Baso % (Auto) % Neut # (Auto) (1.4-6.5) K/uL Lymph # (Auto) (1.2-3.4) K/uL Weld # (Auto) (0.11-0.59) K/uL Eos # (Auto) (0-0.5) K/uL Baso # (Auto) (0-0.2) K/uL Immature Gran # (Auto) (0.00-0.02) K/uL PT INR APTT (21.0-31.0) Seconds PTT Ratio Sodium (136-145) mmol/L Potassium (3.5-5.1) mmol/L Chloride (98-107) mmol/L Carbon Dioxide (21-32) mmol/L Anion Gap (3-11) BUN (7-18) mg/dl Creatinine (0.6-1.2) mg/dl Est Cr Clr Drug Dosing Est GFR ( Amer) ml/min Est GFR (Non-Af Amer) ml/min BUN/Creatinine Ratio (10-20) Glucose (70-99) mg/dl Calcium (8.5-10.1) mg/dl Phosphorus (2.5-4.9) mg/dl Magnesium (1.8-2.4) mg/dl Total Bilirubin (0.2-1) mg/dl Direct Bilirubin (0-0.2) mg/dl AST (15-37) U/L ALT (12-78) U/L Alkaline Phosphatase (45-117) U/L Ammonia (11-32) umol/L Troponin I (0-0.045) ng/ml Total Protein (6.4-8.2) gm/dl Albumin (3.4-5.0) gm/dl Globulin (2.5-4.0) gm/dl Albumin/Globulin Ratio (0.9-2) Lipase (73-393) U/L TSH (0.300-4.500) uIu/ml Urine Color Urine Appearance (Clear) Urine pH (4.5-7.5) Ur Specific [place] (1.000-1.030) Urine Protein (Negative) Urine Glucose (UA) (Negative) Urine Ketones (Negative) Urine Blood (Negative) Urine Nitrite (Negative) Urine Bilirubin (Negative) Urine Urobilinogen (Negative) Ur Leukocyte Esterase (Negative) Urine Opiates Screen Neg (Neg) Ur Methadone, Qual Neg (Neg) Urine Barbiturates Neg (Neg) Ur Phencyclidine (PCP) Neg (Neg) U Amphetamin/Meth Scrn Neg (Neg) MDMA (Ecstasy) Screen Neg (Neg) U Benzodiazepines Scrn Pos H (Neg) Ur Cocaine Metabolite Neg (Neg) U Marijuana (THC) Screen Neg (Neg) Ethyl Alcohol mg/dL (0-3) mg/dl COVID-19 Eval Order SARS-CoV-2 (PCR) (Negative) Administered Medications Lorazepam (Ativan) 1 mg in 2 mls @ 2 mls/min IV UD PRN; Protocol PRN Reason: EtOH Withdrawl AWSS Score 6,7 Stop: 07/25/21 00:35 Last Admin: 06/25/21 01:19 Dose: 2 mls/min Documented by: [id number] Discontinued Medications Thiamine HCl 200 mg/ Sodium (Chloride) 52 mls @ 208 mls/hr IV NOW STA Stop: 06/24/21 18:36 Last Infusion: 06/24/21 20:33 Dose: 0 mls/hr Documented by: [id number] Admin: 06/24/21 19:44 Dose: 208 mls/hr Documented by: [id number] Multivitamins 10 ml/ Thiamine HCl 100 mg/ Folic Acid 1 mg/Sodium Chloride 1,011.2 mls @ 1,011.2 mls/hr IV .Q1H ONE Stop: 06/24/21 19:34 Last Infusion: 06/24/21 22:25 Dose: 0 mls/hr Documented by: [id number] Admin: 06/24/21 20:33 Dose: 1,011.2 mls/hr Documented by: [id number] Sodium Chloride (Nss 1000ml) 1,000 mls @ 999 mls/hr IV .Q1H1M ONE Stop: 06/24/21 21:50 Last Infusion: 06/24/21 23:30 Dose: 0 mls/hr Documented by: [id number] Admin: 06/24/21 22:25 Dose: 999 mls/hr Documented by: [id number] Imaging Data Radiologist's Impression: Head CT 06/24/21 18:32 CT OF THE HEAD WITHOUT CONTRAST CLINICAL HISTORY: Altered mental status. COMPARISON STUDY: Head CT July 30, 2020. CT DOSE: 537.48 mGy.cm TECHNIQUE: Helical axial images of the head were obtained without IV contrast. Automated exposure control was utilized for the study. A dose lowering technique was utilized adhering to the principles of ALARA. FINDINGS: Right sided craniotomy is noted. No acute intracranial hemorrhage, midline shift or mass effect is present. Ventricular system is stable. Basal cisterns are patent. There are no extra-axial collections. White matter hypodensities are unchanged and favor small vessel disease. There are no findings to suggest acute dural sinus thrombosis or acute territorial infarct. The appearance of the brain is unchanged. No acute calvarial fracture is present. IMPRESSION: No acute intracranial findings. No change in appearance of the brain. ACT 112: Negative or not required by law. Electronically signed by: Ion Azul M.D. 06/24/2021 7:46 PM Chest X-Ray 06/24/21 18:33 XR chest 1V portable CLINICAL HISTORY: Atypical chest pain. COMPARISON STUDY: Chest radiograph November 25, 2020. Chest CT November 26, 2020. FINDINGS: Postoperative findings with the spine are noted. There is no pneumothorax or pleural effusion. There is mild bilateral lower lung interstitial thickening. Cardiomediastinal silhouette is stable. IMPRESSION: Mild bilateral lower lung interstitial thickening. This may reflect an infectious process or atelectasis. ACT 112: Negative or not required by law. Electronically signed by: Ion Azul M.D. 06/24/2021 6:44 PM Discharge Plan Visit Data Chief Complaint: Confusion ED Provider: Keenan Churchill Discharge Problem: Toxic encephalopathy, Alcoholism, Metabolic acidosis Patient Disposition: Admitted As Inpatient Discharge Instructions Interventions: ED Discharge Assessment Last Done: 06/24/21 23:57
[2021-06-24] MEDS ORDERED: THIAMINE HCL 200 MG in SODIUM CHLORIDE 0.9% 50 ML IV STA (18:35)
[2021-06-24] MEDS ORDERED: MULTI-VITAMIN INFUSION 10 ML, THIAMINE HCL 100 MG, FOLIC ACID 1 MG in SODIUM CHLORIDE 0... IV ONE (18:35)
--- NOTE | 2021-06-24 18:45 | XRay Report ---
XR chest 1V portable CLINICAL HISTORY: Atypical chest pain. COMPARISON STUDY: Chest radiograph November 25, 2020. Chest CT November 26, 2020. FINDINGS: Postoperative findings with the spine are noted. There is no pneumothorax or pleural effusi on. There is mild bilateral lower lung interstitial thickening. Cardiomediastinal silhouette is stabl e. IMPRESSION: Mild bilateral lower lung interstitial thickening. This may reflect an infectious proces s or atelectasis. ACT 112: Negative or not required by law. Electronically signed by: Ion Azul M.D. 06/24/2021 6:44 PM
[2021-06-24 19:00] LABS: Basophils # (auto) 0.02 K/uL (0-0.2); Basophils % (auto) 0.7 %; Eosinophils # (auto) 0.04 K/uL (0-0.5); Eosinophils % (auto) 1.5 %; Hemoglobin 13.3 g/dL (12.0-16.0); Immature Granulocytes # (auto) 0.01 K/uL (0.00-0.02); Immature Granulocytes % (auto) 0.4 %; Lymphocytes # (auto) 0.92 K/uL (1.2-3.4); Lymphocytes % (auto) 33.5 %; Mean Corpuscular Hemoglobin 34.5 pg (25-34); Mean Corpuscular Hgb Conc 32.4 g/dL (32-36); Mean Corpuscular Volume 106.2 fL (80-100); Monocytes # (auto) 0.38 K/uL (0.11-0.59); Monocytes % (auto) 13.8 %; Neutrophils # (auto) 1.38 K/uL (1.4-6.5); Neutrophils % (auto) 50.1 %; Platelet Count 173 K/uL (130-400); RDW Coefficient of Variation 15.9 % (11.5-14.5); RDW Standard Deviation 61.2 fL (36.4-46.3); Red Blood Count 3.86 M/uL (4.2-5.4); White Blood Count 2.75 K/uL (4.8-10.8)
[2021-06-24 19:08] LABS: Alanine Aminotransferase 18 U/L (12-78); Albumin Level 3.9 gm/dl (3.4-5.0); Aspartate Aminotransferase 38 U/L (15-37); BUN Creatinine Ratio 9.6 (10-20); Bilirubin Direct < 0.1 mg/dl (0-0.2); Blood Urea Nitrogen 9 mg/dl (7-18); Calcium 8.6 mg/dl (8.5-10.1); Carbon Dioxide 15 mmol/L (21-32); Chloride 106 mmol/L (98-107); Est GFR (African American) 75.4 ml/min; Glucose 95 mg/dl (70-99); Lipase 158 U/L (73-393); Magnesium 1.9 mg/dl (1.8-2.4); Potassium 3.6 mmol/L (3.5-5.1); Sodium 135 mmol/L (136-145)
[2021-06-24 19:17] LABS: Albumin Globulin Ratio 0.8 (0.9-2); Alkaline Phosphatase 97 U/L (45-117); Bilirubin,Total 0.4 mg/dl (0.2-1); Globulin 4.8 gm/dl (2.5-4.0); Phosphorus 3.3 mg/dl (2.5-4.9); Thyroid Stimulating Hormone 0.996 uIu/ml (0.300-4.500); Total Protein 8.7 gm/dl (6.4-8.2); Troponin I < 0.015 ng/ml (0-0.045)
--- NOTE | 2021-06-24 19:47 | CT Scan Report ---
CT OF THE HEAD WITHOUT CONTRAST CLINICAL HISTORY: Altered mental status. COMPARISON STUDY: Head CT July 30, 2020. CT DOSE: 537.48 mGy.cm TECHNIQUE: Helical axial images of the head were obtained without IV contrast. Automated exposure con trol was utilized for the study. A dose lowering technique was utilized adhering to the principles o f ALARA. FINDINGS: Right sided craniotomy is noted. No acute intracranial hemorrhage, midline shift or mass ef fect is present. Ventricular system is stable. Basal cisterns are patent. There are no extra-axial co llections. White matter hypodensities are unchanged and favor small vessel disease. There are no find ings to suggest acute dural sinus thrombosis or acute territorial infarct. The appearance of the brai n is unchanged. No acute calvarial fracture is present. IMPRESSION: No acute intracranial findings. No change in appearance of the brain. ACT 112: Negative or not required by law. Electronically signed by: Ion Azul M.D. 06/24/2021 7:46 PM
[2021-06-24] MEDS ORDERED: SODIUM CHLORIDE 0.9% 1000ML 1,000 ML IV ONE (20:50)
[2021-06-24 21:31] LABS: Appearance Urine Clear (Clear); Bilirubin Urine Negative (Negative); Blood Urine Negative (Negative); Color Urine Yellow; Glucose Urine UA Negative (Negative); Ketones Urine 2+ (Negative); Leukocyte Esterase Urine Negative (Negative); Nitrite Urine Negative (Negative); Protein Urine Negative (Negative); Specific Gravity Urine 1.011 (1.000-1.030); Urobilinogen Urine Negative (Negative)
--- NOTE | 2021-06-24 21:53 | History & Physical Report ---
Date of Service June 24, 2021 Assessment & Plan (1) Encephalopathy: Plan: hx traumatic subdural hematoma/traumatic brain injury Alcohol abuse, clinical dehydration contributory Rule out UTI seizure disorder, stable the last few years without medications as per recent outpatient [facility] Neurology visit COPD, pulmonary hypertension as per records, patient currently without respiratory complaints alcoholic cardiomyopathy (EF 60 to 65%, TTE 2019), patient on the dry side history HCV sp tx mood disorder, unknown status episodic thrombocytopenia past tobacco abuse Medical telemetry IVF Check UA, urine drug screen Hold neuropsychotropic meds for now until patient mentation back to baseline Consider MRI brain if without improvement COLBY S, DT precautions PT OT eval DVT prophylaxis with SCDs Re: Episodic thrombocytopenia Full code Attempted to contact Ms. Mamta Barboza (patient's partner) at home through [phone] to obtain additional history. No answer. Ms. Lisa Fuller (patient family friend/secondary contact) updated of patient status and plan of care over the phone. ([phone]) Text document was generated using [employer] voice recognition software. It may contain grammatical or spelling errors. Kindly contact undersigned for clarification of any documentation item in question. History of Present Illness Chief Complaint: I came to drop off the beeper after patient Confusion as per records Primary Care Provider: Manuelito Caal, History obtained from patient, family, and records. Limited history from patient secondary to confusion. Medical history significant for seizure disorder currently not on medications, traumatic subdural hematoma/traumatic brain injury, COPD, pulmonary hypertension as per records, alcoholic cardiomyopathy (EF 60 to 65%, TTE 2019), orthostatic hypotension as per records, chronic hyponatremia, history HCV sp treatment, mood disorder, episodic thrombocytopenia, alcohol abuse, past tobacco abuse. Last confinement 2019 for toxic encephalopathy secondary to polypharmacy. Patient seen at [facility] neurologist's office last week of April 2021 follow-up for seizure disorder. Patient requesting to have her DMV forms filled out so she can start driving again. Patient running for public office as per documentation. Patient claims to have had no seizures for about 3 years. Stopped taking Keppra almost 2 years ago as per note. 72-hour EEG recommended by neurologist. Patient having issues with ambulatory EEG leads the last 2 days as per family. Patient noted to be confused by partner the last few days as per family friend. Patient noted to be wandering in public this afternoon noted to be confused. Patient brought to the ER for evaluation. She denies chest pain, S OB, headache, belly pain, recent seizures. 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 Allergies Allergy/AdvReac Type Severity Reaction Status Date / Time acetaminophen [From Tylenol] Allergy Unknown Unknown Verified 06/24/21 18:23 ibuprofen Allergy Unknown Unknown Verified 06/24/21 18:23 gabapentin AdvReac Severe Confusion Verified 06/24/21 18:23 Home Medications Medication Instructions Recorded Confirmed Type albuterol sulfate 90 mcg/actuation 2 puff INHALATION QID PRN 09/20/19 06/24/21 History aerosol inhaler metoprolol succinate 50 mg 150 mg PO QAM 09/20/19 06/24/21 History tablet,extended release 24 hr (Toprol XL) triamcinolone acetonide 0.1 % 1 applic TOPICAL BID PRN 09/20/19 06/24/21 History topical cream umeclidinium 62.5 mcg-vilanterol 1 inh INHALATION HS 09/20/19 06/24/21 History 25 mcg/actuation powdr for inhalation (Anoro Ellipta) benzonatate 100 mg capsule 100 mg PO TID PRN 11/25/19 06/24/21 History duloxetine 20 mg capsule,delayed 20 mg PO QAM 11/25/20 06/24/21 History release vitamin B complex 1 tab PO QAM 11/25/20 06/24/21 History docusate sodium 100 mg capsule 100 mg PO BID #30 cap 11/26/20 06/24/21 Rx (Colace) sennosides 8.6 mg tablet (Senokot) 8.6 mg PO HS #30 tab 11/26/20 06/24/21 Rx ibuprofen 200 mg tablet 400 mg PO Q6H PRN 06/24/21 06/24/21 History Past Med/Surg History Medical History (Updated 06/25/21 @ 04:47 by Daniel Gleason MD) Alcoholism Chronic hyponatremia Chronic pancreatitis COPD (chronic obstructive pulmonary disease) Displacement 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 (08/22/11) History of craniotomy Due to subdural hematoma from fall History of tobacco abuse Nonischemic cardiomyopathy Seizure disorder (05/16/12) Severe pulmonary arterial systolic hypertension Uterine leiomyoma (07/18/11) Surgical History History of arthroscopic procedure on shoulder History of onel hole surgery History of carpal tunnel surgery History of cholecystectomy History of hysterectomy S/P cervical spinal fusion Family History Mother Hypertension Social History Smoking Status: Former smoker Tobacco Type: Cigarettes Second Hand Exposure: No; Do You Dip or Chew Tobacco: No; Tobacco Cessation Education Requested by Patient: No Hx Alcohol Use: Yes Alcohol type: beer Alcohol Intake Frequency Comment: 5 beers/day Hx Substance Use: No (pt stated no but then stated "I take Valium for anxiety") Preferred Language: Indonesian Communication Ability: Effective P[employer] Clerk Required: No Beliefs That Will Affect Care: None Current Living Situation: Family Current Living Situation Comment: pt did not answer the question clearly Feels Safe at Home: Yes Safety Concerns: Feels Safe At This Time Assistive Devices: Glasses Review of Systems Review of Systems: Could not be reliably obtained Physical Exam Physical Exam: GENERAL: Disoriented, somewhat restless, no respiratory distress SKIN: Normal color, warm HEENT: [place] palpebral conjunctivae, no ptosis, dry buccal mucosa NECK : Supple, no tenderness CHEST : CTA, no tenderness HEART : RRR, no obvious murmurs ABDOMEN: Some distention, nontender EXTREMITIES : No LE swelling/tenderness, scabs over right upper extremity, no other conspicuous deformities noted NEUROLOGIC : Disoriented, no facial asymmetry, gait and cast not assessed Results & Data Results & Data ([facility]) Vital Signs (Past 12 Hours) Vital Signs Temp Pulse Resp BP Pulse Ox 06/24/21 21:16 36.8 C 06/24/21 21:00 89 15 122/79 100 06/24/21 20:00 88 14 120/62 100 06/24/21 19:41 90 22 120/66 100 06/24/21 19:10 94 H 25 H 100 06/24/21 19:00 89 14 124/64 100 06/24/21 18:50 89 14 100 06/24/21 18:40 88 19 100 06/24/21 18:33 72 20 97 06/24/21 18:30 88 21 113/62 98 06/24/21 18:20 90 17 100 06/24/21 18:14 91 H 18 100 06/24/21 17:47 37.1 C 90 20 127/65 100 Laboratory Results Laboratory Results WBC 2.75 K/uL (4.8-10.8) L 06/24/21 18:15 RBC 3.86 M/uL (4.2-5.4) L 06/24/21 18:15 Hgb 13.3 g/dL (12.0-16.0) 06/24/21 18:15 Hct 41.0 % (37-47) 06/24/21 18:15 MCV 106.2 fL (80-100) H 06/24/21 18:15 MCH 34.5 pg (25-34) H 06/24/21 18:15 MCHC 32.4 g/dL (32-36) 06/24/21 18:15 RDW Std Deviation 61.2 fL (36.4-46.3) H 06/24/21 18:15 RDW Coeff of [place] 15.9 % (11.5-14.5) H 06/24/21 18:15 Plt Count 173 K/uL (130-400) 06/24/21 18:15 MPV 9.0 fL (7.4-10.4) 06/24/21 18:15 Immature Gran % (Auto) 0.4 % 06/24/21 18:15 Neut % (Auto) 50.1 % 06/24/21 18:15 Lymph % (Auto) 33.5 % 06/24/21 18:15 [place] % (Auto) 13.8 % 06/24/21 18:15 Eos % (Auto) 1.5 % 06/24/21 18:15 Baso % (Auto) 0.7 % 06/24/21 18:15 Neut # (Auto) 1.38 K/uL (1.4-6.5) L 06/24/21 18:15 Lymph # (Auto) 0.92 K/uL (1.2-3.4) L 06/24/21 18:15 [place] # (Auto) 0.38 K/uL (0.11-0.59) 06/24/21 18:15 Eos # (Auto) 0.04 K/uL (0-0.5) 06/24/21 18:15 Baso # (Auto) 0.02 K/uL (0-0.2) 06/24/21 18:15 Immature Gran # (Auto) 0.01 K/uL (0.00-0.02) 06/24/21 18:15 PT Cancelled 06/24/21 18:15 INR Cancelled 06/24/21 18:15 APTT 27.0 Seconds (21.0-31.0) 06/24/21 20:58 PTT Ratio 1.0 06/24/21 20:58 Sodium 135 mmol/L (136-145) L 06/24/21 18:15 Potassium 3.6 mmol/L (3.5-5.1) 06/24/21 18:15 Chloride 106 mmol/L (98-107) 06/24/21 18:15 Carbon Dioxide 15 mmol/L (21-32) L 06/24/21 18:15 Anion Gap 13.0 (3-11) H 06/24/21 18:15 BUN 9 mg/dl (7-18) 06/24/21 18:15 Creatinine 0.94 mg/dl (0.6-1.2) 06/24/21 18:15 Est Cr Clr Drug Dosing Not Reportable 06/24/21 18:15 Est GFR ( Amer) 75.4 ml/min 06/24/21 18:15 Est GFR (Non-Af Amer) 65.0 ml/min 06/24/21 18:15 BUN/Creatinine Ratio 9.6 (10-20) L 06/24/21 18:15 Glucose 95 mg/dl (70-99) 06/24/21 18:15 Calcium 8.6 mg/dl (8.5-10.1) 06/24/21 18:15 Phosphorus 3.3 mg/dl (2.5-4.9) 06/24/21 18:15 Magnesium 1.9 mg/dl (1.8-2.4) 06/24/21 18:15 Total Bilirubin 0.4 mg/dl (0.2-1) 06/24/21 18:15 Direct Bilirubin < 0.1 mg/dl (0-0.2) 06/24/21 18:15 AST 38 U/L (15-37) H 06/24/21 18:15 ALT 18 U/L (12-78) 06/24/21 18:15 Alkaline Phosphatase 97 U/L (45-117) 06/24/21 18:15 Ammonia < 10.0 umol/L (11-32) L 06/24/21 18:59 Troponin I < 0.015 ng/ml (0-0.045) 06/24/21 18:15 Total Protein 8.7 gm/dl (6.4-8.2) H 06/24/21 18:15 Albumin 3.9 gm/dl (3.4-5.0) 06/24/21 18:15 Globulin 4.8 gm/dl (2.5-4.0) H 06/24/21 18:15 Albumin/Globulin Ratio 0.8 (0.9-2) L 06/24/21 18:15 Lipase 158 U/L (73-393) 06/24/21 18:15 TSH 0.996 uIu/ml (0.300-4.500) 06/24/21 18:15 Urine Color Yellow 06/24/21 21:02 Urine Appearance Clear (Clear) 06/24/21 21:02 Urine pH 5.0 (4.5-7.5) 06/24/21 21:02 Ur Specific [place] 1.011 (1.000-1.030) 06/24/21 21:02 Urine Protein Negative (Negative) 06/24/21 21: Urine Glucose (UA) Negative (Negative) 06/24/21 21:02 Urine Ketones 2+ (Negative) H 06/24/21 21:02 Urine Blood Negative (Negative) 06/24/21 21: Urine Nitrite Negative (Negative) 06/24/21 21: Urine Bilirubin Negative (Negative) 06/24/21 21: Urine Urobilinogen Negative (Negative) 06/24/21 21:02 Ur Leukocyte Esterase Negative (Negative) 06/24/21 21: Ethyl Alcohol mg/dL < 3.0 mg/dl (0-3) 06/24/21 18:48 COVID-19 Eval Order Covid19 at [facility] 06/24/21 18:34 SARS-CoV-2 (PCR) NEGATIVE (Negative) 06/24/21 18:[address] 06/24/21 18:32 CT OF THE HEAD WITHOUT CONTRAST CLINICAL HISTORY: Altered mental status. COMPARISON STUDY: Head CT July 30, 2020. CT DOSE: 537.48 mGy.cm TECHNIQUE: Helical axial images of the head were obtained without IV contrast. Automated exposure control was utilized for the study. A dose lowering technique was utilized adhering to the principles of ALARA. FINDINGS: Right sided craniotomy is noted. No acute intracranial hemorrhage, midline shift or mass effect is present. Ventricular system is stable. Basal cisterns are patent. There are no extra-axial collections. White matter hypodensities are unchanged and favor small vessel disease. There are no findings to suggest acute dural sinus thrombosis or acute territorial infarct. The appearance of the brain is unchanged. No acute calvarial fracture is present. IMPRESSION: No acute intracranial findings. No change in appearance of the brain. ACT 112: Negative or not required by law. Electronically signed by: Ion Azul M.D. 06/24/2021 7:46 PM Chest X-Ray 06/24/21 18:33 XR chest 1V portable CLINICAL HISTORY: Atypical chest pain. COMPARISON STUDY: Chest radiograph November 25, 2020. Chest CT November 26, 2020. FINDINGS: Postoperative findings with the spine are noted. There is no pneumothorax or pleural effusion. There is mild bilateral lower lung interstitial thickening. Cardiomediastinal silhouette is stable. IMPRESSION: Mild bilateral lower lung interstitial thickening. This may reflect an infectious process or atelectasis. ACT 112: Negative or not required by law. Electronically signed by: Ion Azul M.D. 06/24/2021 6:44 PM Diagnostic Findings EKG as per my interpretation rate 90, NSR, normal axis, septal infarct, nonspecific T wave abnormalities, low voltage
[2021-06-24 22:05] LABS: Amphetamines+Metham, Urine Neg (Neg); Barbiturates, Urine Neg (Neg); Benzodiazepine, Urine Pos (Neg); Cocaine, Urine Neg (Neg); MDMA (Ecstacy), Urine Neg (Neg); Methadone, Urine Neg (Neg); Opiate, Urine Neg (Neg); Phencyclidine, Urine Neg (Neg)
[2021-06-25] MEDS ORDERED: PROMETHAZINE HCL 12.5 MG in SODIUM CHLORIDE 0.9% 50 ML IV PRN (00:36)
[2021-06-25] MEDS ORDERED: LORazepam 2 MG/4 ML VIAL IV PRN (00:36)
[2021-06-25] MEDS ORDERED: LORazepam 3 MG/6 ML VIAL IV PRN (00:36)
[2021-06-25] MEDS ORDERED: BENZONATATE 100 MG CAPSULE PO PRN (00:36)
[2021-06-25] MEDS ORDERED: ATIVAN IV ALCOHOL WITHDRAWL IV PRN (00:36)
[2021-06-25] MEDS ORDERED: ACETAMINOPHEN 325 MG TAB PO PRN (00:36)
[2021-06-25] MEDS ORDERED: POTASSIUM CHLORIDE 40 MEQ in SODIUM CHLORIDE 0.9% 1000ML 1,000 ML IV ONE (00:45)
[2021-06-25] MEDS: LORazepam 1 MG/2 ML VIAL IV PRN ×2 (01:19→23:03)
[2021-06-25 08:31] LABS: Hematocrit (blood only) 37.3 % (37-47); Hemoglobin 12.1 g/dL (12.0-16.0); Mean Corpuscular Hemoglobin 34.7 pg (25-34); Mean Corpuscular Hgb Conc 32.4 g/dL (32-36); Mean Corpuscular Volume 106.9 fL (80-100); Platelet Count 141 K/uL (130-400); RDW Coefficient of Variation 16.1 % (11.5-14.5); RDW Standard Deviation 61.4 fL (36.4-46.3); Red Blood Count 3.49 M/uL (4.2-5.4); White Blood Count 2.21 K/uL (4.8-10.8)
[2021-06-25] MEDS: METOPROLOL SUCC 50MG EXT REL TAB PO SCH (08:48)
[2021-06-25] MEDS: THIAMINE HCL 100 MG TAB PO SCH (08:48)
[2021-06-25] MEDS: FOLIC ACID 1 MG TAB PO SCH (08:48)
[2021-06-25] MEDS: VITAMIN B COMPLEX TAB PO SCH (08:48)
[2021-06-25] MEDS: MULTIVITAMIN TAB PO SCH (08:48)
[2021-06-25] MEDS: DOCUSATE SODIUM 100 MG CAP PO SCH ×2 (08:49→21:31)
[2021-06-25 08:57] LABS: Basophils # (auto) 0.02 K/uL (0-0.2); Basophils % (auto) 0.9 %; Eosinophils # (auto) 0.04 K/uL (0-0.5); Eosinophils % (auto) 1.8 %; Lymphocytes # (auto) 0.96 K/uL (1.2-3.4); Lymphocytes % (auto) 43.4 %; Monocytes # (auto) 0.37 K/uL (0.11-0.59); Monocytes % (auto) 16.7 %; Neutrophils # (auto) 0.82 K/uL (1.4-6.5); Neutrophils % (auto) 37.2 %
[2021-06-25 09:16] LABS: Albumin Globulin Ratio 0.8 (0.9-2); BUN Creatinine Ratio 10.9 (10-20); Bilirubin,Total 0.4 mg/dl (0.2-1); Calcium 7.7 mg/dl (8.5-10.1); Creatinine Clr Calc Pharmacy 89.5 ml/min; Est GFR (African American) 112.6 ml/min; Est GFR (Non-African American) 97.2 ml/min; Globulin 3.6 gm/dl (2.5-4.0); Potassium 3.5 mmol/L (3.5-5.1); Total Protein 6.6 gm/dl (6.4-8.2)
--- NOTE | 2021-06-25 12:06 | Electrocardiogram Report ---
Test Reason : Blood Pressure : / mmHG Vent. Rate : 091 BPM Atrial Rate : 091 BPM P-R Int : 164 ms QRS Dur : 078 ms QT Int : 378 ms P-R-T Axes : 067 054 068 degrees QTc Int : 464 ms Normal sinus rhythm Septal infarct (cited on or before 17-JAN-2020) Abnormal ECG When compared with ECG of 25-NOV-2020 23:55, Questionable change in QRS axis Nonspecific T wave abnormality, worse in Lateral leads Confirmed by Bayron Rodriguez ([id number]) on 06/25/2021 12:06:07 PM Referred By: REFERRED SELF Confirmed By:Bayron Rodriguez
--- NOTE | 2021-06-25 14:43 | Hospitalist Progress Note ---
Date of Service June 25, 2021 Assessment & Plan (1) Encephalopathy: (2) Toxic encephalopathy: (3) Alcoholism: Plan: 61-year-old female with PMH of alcoholism, seizure disorder on Keppra, COPD, history of admission for toxic encephalopathy secondary to polypharmacy [2019], traumatic subdural hematoma/TBI, pulmonary hypertension, orthostatic hypotension, chronic hyponatremia, HCV status post treatment, mood disorder, episodic thrombocytopenia, past tobacco abuse and alcoholic cardiomyopathy [EF 60 to 65% per TTE 2019] was brought to our ED 06/24 after the patient was found wandering around in public confused. She is being managed for the following: #. Metabolic encephalopathy #. Acute alcohol intoxication #. Impending withdrawal #. Electrolytesmonitor & replace as appropriate History of traumatic subdural hematoma/TBI Alcohol abuse, history not reliable from patient. Per patient's partner Mamta [[phone]], patient drinks 2 cases of beer a week [1 case = 36 packs per her] plus some additional 6 to 12 packs. Last alcohol drink was on 06/24 afternoon. Patient noted to be confused by partner the last few days as per family friend. Admitting urinalysis WNL. Admitting toxicology positive for benzodiazepines, f ollow-up final toxicology results. Hold neuropsychotropic meds for now until patient mentation back to baseline and confusion resolves Pt AOx3 at bedside; mild confusion; Consider MRI brain if without improvement AWSS, DT precautions Low threshold for neurology consult. #. Neutropenia Neutropenia noted in the past. Per patient's partner Mamta, she has history of neutropenia. She follows Dr. Abdon Ibrahim. Admitting WBC 2.75 with ANC 1.38 Today, WBC 2.1 with ANC of 0.82K; platelets and hemoglobin WNL but lower than admitting 2/2 alcohol abuse. Could be compounded by dilutional effect. No signs of infection at present. Continue to monitor with daily labs Watch out for infection If falls further below, will contact hematology. #. History of seizure disorder stable the last few years without medications as per recent [place] [facility] [place]. Patient seen at [facility] [place]'s [place] last week of April 2021 follow-up for seizure disorder. Patient claims to have had no seizures for about 3 years. Stopped taking Keppra almost 2 years ago as per note. 72-hour EEG recommended by neurologist. Patient requesting to have her DMV forms filled out so she can start driving again per admitting note Patient having issues with ambulatory EEG leads the last 2 days as per family. We will continue to monitor, patient is to follow-up with her neurology as an outpatient. #. COPD, pulmonary hypertension Chronic, Stable c/w home meds. #. alcoholic cardiomyopathy EF 60 to 65%, TTE 2019 patient on the dry side continue to monitor #. mood disorder: unknown status #. Substance abuse: past tobacco and current alcohol. unknown status f/u toxicology screen low threshold for psy consultation. #. episodic thrombocytopenia Currently WNL and stable. PT OT eval DVT prophylaxis with SCDs Re: Episodic thrombocytopenia Full code Attempted to contact Ms. Mamta Barboza (patient's partner) at home through [phone] to obtain additional history. No answer. Ms. Lisa Fuller (patient family friend/secondary contact) updated of patient status and plan of care over the phone. ([phone]) 06/25: Patient's partner Mamta [[phone]] was called over the phone, updated about the plan of care, answered all the question, she voiced understanding and agreeable to the plan of care. Admission and Anticipated Discharge Date Admission Date: June 24, 2021 Subjective Patient was lying in bed, AOx3, looking intoxicated, no new acute events overnight. Patient denied any headache/dizziness/chills/chest pain/other review of symptoms. Per RN patient is eating okay. Physical Exam Physical Exam: GENERAL: Alert and oriented x3. NAD, on RA. Intoxicated looking. Mild confusion. HEENT: No pallor, no icterus. Pupils equal, round and reactive to light. Oral mucosa moist. NECK: No JVD, no neck masses. HEART: S1 and S2 heard. Regular rate and rhythm. No murmur, no gallop. RESPIRATORY SYSTEM: Normal AP diameter. No accessory muscle use. No wheezing, no crackles. ABDOMEN: Soft, bowel sounds present, nontender, no distention. CENTRAL NERVOUS SYSTEM: No facial droop. Speech is clear. Obeys simple commands. Moves extremities. EXTREMITIES: No edema, no erythema seen. Results & Data Results & Data ([facility]) Vital Signs (Past 12 Hours) Vital Signs Temp Pulse Pulse Resp BP Pulse Ox 06/25/21 08:17 36.7 C 98 H 16 131/69 98 06/25/21 07:06 89 06/25/21 06:22 36.6 C 83 20 93/56 L 100 06/25/21 02:58 36.7 C 96 H 20 118/69 98
[2021-06-25] MEDS: SENNA 8.6 MG TAB PO SCH (21:31)
[2021-06-25] MEDS: UMECLIDINIUM/VILANTEROL 62.5/25MCG 7 PUFFS/INHALER INH SCH (21:31)
[2021-06-26 08:27] LABS: Hematocrit (blood only) 37.2 % (37-47); Hemoglobin 12.3 g/dL (12.0-16.0); Mean Corpuscular Hemoglobin 34.8 pg (25-34); Mean Corpuscular Hgb Conc 33.1 g/dL (32-36); Mean Corpuscular Volume 105.4 fL (80-100); Mean Platelet Volume 9.2 fL (7.4-10.4); Platelet Count 160 K/uL (130-400); RDW Coefficient of Variation 16.6 % (11.5-14.5); RDW Standard Deviation 63.4 fL (36.4-46.3); Red Blood Count 3.53 M/uL (4.2-5.4); White Blood Count 2.13 K/uL (4.8-10.8)
[2021-06-26 08:55] LABS: BUN Creatinine Ratio 7.8 (10-20); Calcium 8.5 mg/dl (8.5-10.1); Est GFR (African American) 113.2 ml/min; Est GFR (Non-African American) 97.7 ml/min; Magnesium 1.8 mg/dl (1.8-2.4); Phosphorus 3.1 mg/dl (2.5-4.9); Potassium 3.3 mmol/L (3.5-5.1)
[2021-06-26] MEDS: MULTIVITAMIN TAB PO SCH (09:18)
[2021-06-26] MEDS: VITAMIN B COMPLEX TAB PO SCH (09:18)
[2021-06-26] MEDS: DOCUSATE SODIUM 100 MG CAP PO SCH ×2 (09:18→20:45)
[2021-06-26] MEDS: FOLIC ACID 1 MG TAB PO SCH (09:18)
[2021-06-26] MEDS: THIAMINE HCL 100 MG TAB PO SCH (09:18)
[2021-06-26] MEDS: METOPROLOL SUCC 50MG EXT REL TAB PO SCH (09:18)
[2021-06-26] MEDS: LORazepam 1 MG/2 ML VIAL IV PRN (13:16)
[2021-06-26] MEDS: ACETAMINOPHEN 325 MG TAB PO PRN (15:11)
--- NOTE | 2021-06-26 17:17 | Hospitalist Progress Note ---
Date of Service June 26, 2021 Assessment & Plan (1) Encephalopathy: (2) Toxic encephalopathy: (3) Alcoholism: Plan: 61-year-old female with PMH of alcoholism, seizure disorder on Keppra, COPD, history of admission for toxic encephalopathy secondary to polypharmacy [2019], traumatic subdural hematoma/TBI, pulmonary hypertension, orthostatic hypotension, chronic hyponatremia, HCV status post treatment, mood disorder, episodic thrombocytopenia, past tobacco abuse and alcoholic cardiomyopathy [EF 60 to 65% per TTE 2019] was brought to our ED 06/24 after the patient was found wandering around in public confused. She is being managed for the following: #. Metabolic encephalopathy #. Acute alcohol intoxication #. Impending withdrawal #. Electrolytesmonitor & replace as appropriate History of traumatic subdural hematoma/TBI Alcohol abuse, history not reliable from patient. Per patient's partner Mamta [[phone]], patient drinks 2 cases of beer a week [1 case = 36 packs per her] plus some additional 6 to 12 packs. Last alcohol drink was on 06/24 afternoon. Patient noted to be confused by partner the last few days as per family friend. Admitting urinalysis WNL. Admitting toxicology positive for benzodiazepines, f ollow-up final toxicology results. Hold neuropsychotropic meds for now until patient mentation back to baseline and confusion resolves Patient still with mild confusion, resume neuropsychiatric medications tomorrow if confusion resolved. Pt AOx3 at bedside; mild confusion -improving AWSS, DT precautions, requiring as needed Ativan. Low threshold for neurology consult. #. Neutropenia Neutropenia noted in the past. Per patient's partner Mamta, she has history of neutropenia. She follows Dr. Abdon Ibrahim. Admitting WBC 2.75 with ANC 1.38 06/25 WBC 2.1 with ANC of 0.82K; platelets and hemoglobin WNL but lower than admitting 2/2 alcohol abuse. Could be compounded by dilutional effect. No signs of infection at present. Continue to monitor with daily labs Watch out for infection #. History of seizure disorder stable the last few years without medications as per recent outpatient [facility] [place]. Patient seen at [facility] [place]ist's office last week of April 2021 follow-up for seizure disorder. Patient claims to have had no seizures for about 3 years. Stopped taking Keppra almost 2 years ago as per note. 72-hour EEG recommended by neurologist. Patient requesting to have her DMV forms filled out so she can start driving again per admitting note Patient having issues with ambulatory EEG leads the last 2 days as per family. We will continue to monitor, patient is to follow-up with her neurology as an outpatient. #. COPD, pulmonary hypertension Chronic, Stable c/w home meds. #. alcoholic cardiomyopathy EF 60 to 65%, TTE 2019 patient on the dry side continue to monitor #. mood disorder: unknown status #. Substance abuse: past tobacco and current alcohol. unknown status f/u toxicology screen low threshold for psy consultation. #. episodic thrombocytopenia Currently WNL and stable. PT OT eval DVT prophylaxis with SCDs Re: Episodic thrombocytopenia Full code Attempted to contact Ms. Mamta Barboza (patient's partner) at home through [phone] to obtain additional history. No answer. Ms. Lisa Fuller (patient family friend/secondary contact) updated of patient status and plan of care over the phone. ([phone]) 06/25: Patient's partner Mamta [[phone]] was called over the phone, updated about the plan of care, answered all the question, she voiced understanding and agreeable to the plan of care. Disposition: PT recommending rehab upon discharge. CM to assist with discharge planning. Admission and Anticipated Discharge Date Admission Date: June 24, 2021 Subjective Patient was lying in bed, AOx3, looking better today, no new acute events overnight. Patient denied any headache/dizziness/chills/chest pain/other review of symptoms. Per RN patient is eating okay. Physical Exam Physical Exam: GENERAL: Alert and oriented x3. NAD, on RA. Better today with regard to her confusion. HEENT: No pallor, no icterus. Pupils equal, round and reactive to light. Oral mucosa moist. NECK: No JVD, no neck masses. HEART: S1 and S2 heard. Regular rate and rhythm. No murmur, no gallop. RESPIRATORY SYSTEM: Normal AP diameter. No accessory muscle use. No wheezing, no crackles. ABDOMEN: Soft, bowel sounds present, nontender, no distention. CENTRAL NERVOUS SYSTEM: No facial droop. Speech is clear. Obeys simple commands. Moves extremities. EXTREMITIES: No edema, no erythema seen. Results & Data Results & Data ([facility]) Vital Signs (Past 12 Hours) Vital Signs Temp Pulse Pulse Resp BP Pulse Ox 06/26/21 16:09 56 L 06/26/21 15:54 36.8 C 61 18 113/70 95 06/26/21 12:02 67 06/26/21 11:55 36.9 C 59 L 16 103/61 99 06/26/21 08:05 36.3 C L 76 18 111/67 90
[2021-06-26] MEDS: HEPARIN SOD 5,000 UNIT/0.5 ML VIAL SQ SCH (20:45)
[2021-06-26] MEDS: UMECLIDINIUM/VILANTEROL 62.5/25MCG 7 PUFFS/INHALER INH SCH (20:45)
[2021-06-26] MEDS: SENNA 8.6 MG TAB PO SCH (20:45)
[2021-06-26 23:11] LABS: 7-Aminoclonaz, Confirm NEGATIVE ng/mL (<25); Hydro-Alp Ur, GC/MS NEGATIVE ng/mL (<25); Hydroxyethylflurazepam, Conf NEGATIVE ng/mL (<50); Hydroxymidazolam Ur, GC/MS NEGATIVE ng/mL (<50); Hydroxytriazolam NEGATIVE ng/mL (<50); Lorazepam, Ur GC/MS NEGATIVE ng/mL (<50); Nordiazepam, Confirm 194 ng/mL (<50); Oxazepam Ur, GC/MS 471 ng/mL (<50); Temazepam, Confirm 357 ng/mL (<50)
[2021-06-27 06:30] LABS: Hematocrit (blood only) 34.9 % (37-47); Hemoglobin 11.3 g/dL (12.0-16.0); Mean Corpuscular Hgb Conc 32.4 g/dL (32-36); Mean Platelet Volume 8.9 fL (7.4-10.4); Platelet Count 149 K/uL (130-400); RDW Coefficient of Variation 16.2 % (11.5-14.5); RDW Standard Deviation 63.3 fL (36.4-46.3); Red Blood Count 3.23 M/uL (4.2-5.4); White Blood Count 1.58 K/uL (4.8-10.8)
[2021-06-27 07:18] LABS: BUN Creatinine Ratio 5.5 (10-20); Creatinine Clr Calc Pharmacy 95.8 ml/min; Est GFR (African American) 115.2 ml/min; Est GFR (Non-African American) 99.4 ml/min; Magnesium 1.5 mg/dl (1.8-2.4); Phosphorus 3.4 mg/dl (2.5-4.9); Potassium 3.8 mmol/L (3.5-5.1)
[2021-06-27] MEDS: DOCUSATE SODIUM 100 MG CAP PO SCH ×2 (07:49→20:03)
[2021-06-27] MEDS: THIAMINE HCL 100 MG TAB PO SCH (07:50)
[2021-06-27] MEDS: METOPROLOL SUCC 50MG EXT REL TAB PO SCH (07:50)
[2021-06-27] MEDS: VITAMIN B COMPLEX TAB PO SCH (07:50)
[2021-06-27] MEDS: FOLIC ACID 1 MG TAB PO SCH (07:50)
[2021-06-27] MEDS: ACETAMINOPHEN 325 MG TAB PO PRN (07:50)
[2021-06-27] MEDS: HEPARIN SOD 5,000 UNIT/0.5 ML VIAL SQ SCH ×2 (07:51→20:05)
[2021-06-27] MEDS: MULTIVITAMIN TAB PO SCH (07:51)
[2021-06-27] MEDS ORDERED: MAGNESIUM SULFATE / D5W 1 GM/100 ML BAG IV ONE (11:52)
--- NOTE | 2021-06-27 13:56 | Neurology Consultation ---
Date of Consultation June 27, 2021 Assessment & Plan (1) Encephalopathy: 1. will reevaluate as outpatient 2. EEG- 72 hour- may need repeat but at this point she needs to return equipment for it to be read 3. neutropenia - will need follow up as outpatient 4. possible EtOH withdrawal seizure 5. follow up with neurology after EEG is returned may need to initiate AED but will wait for the results ok to discharge from neurology stand point (2) Alcoholism: 1. needs recover counselling if willing to participate (3) Seizure disorder: 1. under going evaluation Supervising Physician Co-Signing Physician Notes Patient was seen and examined this afternoon. Discussed with PELON Gonzalez and agree with recommendations / assessment as noted below. A 61 year old woman with history of chronic alcohol use admitted with transient confusion. Currently back to baseline. No witnessed seizure. Unclear etiology. Recommend patient follow up with ambulatory EEG results. May need to repeat as she removed leads early. Ok to discharge from neurology standpoint. History of Present Illness Reason for Consultation: encephalopathy, hx of seizure Requesting Physician: Nabil Overton MD Attending Physician: Nabil Overton MD History of Present Illness Nury iis a 61 year old woman with a PMH- alcoholism, seizure disorder on Keppra, COPD, history of admission for toxic encephalopathy secondary to polypharmacy who presents [facility] ED 06/24/2021 for altered mental status after the patient was found wandering around in public confused. She reports she did have 2 beers this morning but denies drinking every day. She was chronically ill-appearing in ED but no acute distress, afebrile stable vital signs. She had subtle dysarthria but is understood and has no overt aphasia. Today she is sitting up in bed at her baseline according to a friend bedside. She did wear the 72 hour EEG and she will bring it back once she is discharged from the hospital. denies CP, SOB, abdominal pain, N, V. She is drinking EtOH daily with no abrupt stopping she has 2 beer to 7 beer a day it varies. Allergies Allergy/AdvReac Type Severity Reaction Status Date / Time acetaminophen [From Tylenol] Allergy Unknown Unknown Verified 06/24/21 18:23 ibuprofen Allergy Unknown Unknown Verified 06/24/21 18:23 gabapentin AdvReac Severe Confusion Verified 06/24/21 18:23 Home Medications Medication Instructions Recorded Confirmed Type albuterol sulfate 90 mcg/actuation 2 puff INHALATION QID PRN 09/20/19 06/24/21 History aerosol inhaler metoprolol succinate 50 mg 150 mg PO QAM 09/20/19 06/24/21 History tablet,extended release 24 hr (Toprol XL) triamcinolone acetonide 0.1 % 1 applic TOPICAL BID PRN 09/20/19 06/24/21 History topical cream umeclidinium 62.5 mcg-vilanterol 1 inh INHALATION HS 09/20/19 06/24/21 History 25 mcg/actuation powdr for inhalation (Anoro Ellipta) benzonatate 100 mg capsule 100 mg PO TID PRN 11/25/19 06/24/21 History duloxetine 20 mg capsule,delayed 20 mg PO QAM 11/25/20 06/24/21 History release vitamin B complex 1 tab PO QAM 11/25/20 06/24/21 History docusate sodium 100 mg capsule 100 mg PO BID #30 cap 11/26/20 06/24/21 Rx (Colace) sennosides 8.6 mg tablet (Senokot) 8.6 mg PO HS #30 tab 11/26/20 06/24/21 Rx ibuprofen 200 mg tablet 400 mg PO Q6H PRN 06/24/21 06/24/21 History Patient History Medical History (Updated 06/25/21 @ 04:47 by Daniel Gleason MD) Alcoholism Chronic hyponatremia Chronic pancreatitis COPD (chronic obstructive pulmonary disease) Displacement 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 (08/22/11) History of craniotomy Due to subdural hematoma from fall History of tobacco abuse Nonischemic cardiomyopathy Seizure disorder (05/16/12) Severe pulmonary arterial systolic hypertension Uterine leiomyoma (07/18/11) Surgical History History of arthroscopic procedure on shoulder History of onel hole surgery History of carpal tunnel surgery History of cholecystectomy History of hysterectomy S/P cervical spinal fusion Family History Mother Hypertension Social History Smoking Status: Former smoker Tobacco Type: Cigarettes Second Hand Exposure: No; Do You Dip or Chew Tobacco: No; Tobacco Cessation Education Requested by Patient: No Hx Alcohol Use: Yes Alcohol type: beer Alcohol Intake Frequency Comment: 5 beers/day Hx Substance Use: No (pt stated no but then stated "I take Valium for anxiety") Preferred Language: Malay Communication Ability: Effective Developer Architect Required: No Beliefs That Will Affect Care: None marital status: Single Current Living Situation: Family Current Living Situation Comment: pt did not answer the question clearly How many Children do You have: 0 Feels Safe at Home: Yes Safety Concerns: Feels Safe At This Time Assistive Devices: None Review of Systems Review of Systems: All systems reviewed & are unremarkable except as noted in HPI & below Physical Exam Physical Exam: Physical Exam: Constitutional: appearance nourished, ill appearing Ears, Nose, Mouth and Throat: mucous membranes moist, no injection and skin normal, eyes normal Cardiovascular: normal S-1 and S-2 and regular rate and rhythm Respiratory: course breath sounds Musculoskeletal: no peripheral edema and good distal pulses Skin: no stigmata of neurocutaneous disease noted and normal and intact Eyes: extraocular muscles intact (EOMI) and pupils equal, round and reactive to light (PERRL) NEUROLOGIC EXAMINATION: Mental status: Alert and interactive Oriented to full date and location Oriented to person Speech fluent with no evidence of aphasia Cranial Nerves smile eye brow raise symmetric Reflexes: Deep tendon reflexes were symmetrical and graded 2/5. Sensory: intact to light and cool touch Coordination: finger to nose, no reaching or resting tremor Gait/Stance: Posture sitting bedside, stood without assistance, tandem gait slightly off balance for turns Motor: Negative for pronator drift of out stretched arms with eyes closed. 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6-1.2) mg/dl BUN/Creatinine Ratio 5.5 L (10-20) Calcium 8.0 L (8.5-10.1) mg/dl Magnesium 1.5 L (1.8-2.4) mg/dl Ur Nordiazepam Confirm 194 H (<50) ng/mL U Oxazepam Confm GC/MS 471 H (<50) ng/mL Ur Temazepam Confirm 357 H (<50) ng/mL Diagnostic Findings CT head-Right sided craniotomy is noted. No acute intracranial hemorrhage, midline shift or mass effect is present. Ventricular system is stable. Basal cisterns are patent. There are no extra-axial collections. White matter hypodensities are unchanged and favor small vessel disease. There are no findings to suggest acute dural sinus thrombosis or acute territorial infarct. The appearance of the brain is unchanged. No acute calvarial fracture is present. CXR-Mild bilateral lower lung interstitial thickening. This may reflect an infectious process or atelectasis.
--- NOTE | 2021-06-27 16:21 | Hospitalist Progress Note ---
Date of Service June 27, 2021 Assessment & Plan (1) Encephalopathy: (2) Toxic encephalopathy: (3) Alcoholism: Plan: 61 y/o female w/ hx of alcoholism, seizure disorder on Keppra, COPD, history of admission for toxic encephalopathy secondary to polypharmacy [2019], traumatic subdural hematoma/TBI, pulmonary hypertension, orthostatic hypotension, chronic hyponatremia, HCV status post treatment, mood disorder, episodic thrombocytopenia, past tobacco abuse and alcoholic cardiomyopathy [EF 60 to 65% per TTE 2019] was brought to ED 06/24 after the patient was found wandering around in public confused. She is being managed for the following: Metabolic encephalopathy Acute alcohol intoxication impending withdrawal Electrolyte abnormalities monitor & replace as appropriate History of traumatic subdural hematoma/TBI Alcohol abuse, history not reliable from patient. Per patient's partner Mamta [[phone]], patient drinks 2 cases of beer a week [1 case = 36 packs per her] plus some additional 6 to 12 packs. Last alcohol drink was on 06/24 afternoon. Patient noted to be confused by partner the last few days as per family friend. Admitting urinalysis WNL. Admitting toxicology positive for benzodiazepines, follow-up final toxicology results. Hold neuropsychotropic meds for now until patient mentation back to baseline and confusion resolves Patient still with mild confusion yesterday, resume neuropsychiatric medications tomorrow if confusion resolved. Pt AOx3 at bedside; mild confusion -improving AWSS, DT precautions, requiring as needed Ativan. 06/27 -patient is awake alert oriented answering most questions appropriately, patient's partner Mamta coming to the hospital to help evaluate patient's baseline. Psychiatry and neurology consulted. Will discuss if patient will be willing/interested in alcohol rehab. Patient also has history of seizures, and follows with [facility] neurology. Neutropenia Neutropenia noted in the past. Per patient's partner Mamta, she has history of neutropenia. She follows Dr. Abdon Ibrahim. Admitting WBC 2.75 with ANC 1.38 06/25 WBC 2.1 with ANC of 0.82K; platelets and hemoglobin WNL but lower than admitting 2/2 alcohol abuse. Could be compounded by dilutional effect. 06/27 - WBC 1.6 K No signs of infection at present. Continue to monitor with daily labs Watch out for infection Will need close outpt follow up. History of seizure disorder stable the last few years without medications as per recent outpatient [facility] [place] Neurology visit. Patient seen at [facility] [facility] neurologist's office last week of April 2021 follow-up for seizure disorder. Patient claims to have had no seizures for about 3 years. Stopped taking Keppra almost 2 years ago as per note. 72-hour EEG recommended by neurologist. Patient requesting to have her DMV forms filled out so she can start driving again per admitting note Patient having issues with ambulatory EEG leads the last 2 days as per family. We will continue to monitor. Contacted neurology for further eval prior to DC. COPD, pulmonary hypertension Chronic, Stable c/w home meds. alcoholic cardiomyopathy EF 60 to 65%, TTE 2019 patient on the dry side continue to monitor mood disorder: unknown status Substance abuse: past tobacco and current alcohol. unknown status f/u toxicology screen Psychiatry consulted Episodic thrombocytopenia Currently WNL and stable. PT OT eval DVT prophylaxis with SCDs Re: Episodic thrombocytopenia Full code Ms. Mamta Barboza (patient's partner) contacted - plans to visit pt at the hospital and help establish baseline mental status. Phone# [phone] Ms. Lisa Fuller (patient family friend/secondary contact) updated of patient status and plan of care over the phone. ([phone]) Disposition: PT recommending rehab upon discharge. CM to assist with discharge planning. Admission and Anticipated Discharge Date Admission Date: June 24, 2021 Subjective Patient seen in follow-up of alcohol abuse, encephalopathy. Currently laying in bed, in no acute distress, and is able to answer questions appropriately. Previous provider able to contact her significant other, Mamta, who is planning to come to the hospital. Per RN, patient still occasionally confused, will need to clarify what is true and what is not and therefore plan will be helpful for that/establish baseline. Will consult with psychiatry, about possible alcohol rehab as well, and neurology as patient has history of seizures. Patient denies any headache/dizziness/chills/chest pain/shortness of breath. She has some cough, says that is chronic. She also reports some loose stools. She is asking about advancing her diet, seems that's appropriate, will advance diet now. Review of Systems Review of Systems: All systems reviewed & are unremarkable except as noted in Subjective Physical Exam Physical Exam: GENERAL: Alert and oriented x3. NAD, on RA. HEENT: NC/AT, No pallor, no icterus. EOMI, PERRL. Oral mucosa moist. NECK: No JVD, no neck masses. HEART: S1 and S2 heard. Regular rate and rhythm. No murmur, no gallop. RESPIRATORY: Normal AP diameter. No accessory muscle use. No wheezing, no crackles. ABDOMEN: Soft, bowel sounds present, nontender, no distention. NEURO:Awake alert oriented, and answering simple questions appropriately. No facial droop. Speech is clear. Moves extremities. EXTREMITIES: No edema, no erythema seen. Results & Data Results & Data ([facility]) Vital Signs (Past 12 Hours) Vital Signs Temp Pulse Pulse Resp BP Pulse Ox 06/27/21 15:25 36.2 C L 52 L 18 120/76 98 06/27/21 15:01 52 L 06/27/21 10:39 51 L 06/27/21 07:39 36.5 C 69 18 150/81 H 99 Laboratory Results 06/27/21 06/27/21 06/24/21 Range/Units 06:05 06:05 21:02 WBC 1.58 L (4.8-10.8) K/uL RBC 3.23 L (4.2-5.4) M/uL Hgb 11.3 L (12.0-16.0) g/dL Hct 34.9 L (37-47) % MCV 108.0 H (80-100) fL MCH 35.0 H (25-34) pg MCHC 32.4 (32-36) g/dL RDW Std Deviation 63.3 H (36.4-46.3) fL RDW Coeff of [place] 16.2 H (11.5-14.5) % Plt Count 149 (130-400) K/uL MPV 8.9 (7.4-10.4) fL Sodium 142 (136-145) mmol/L Potassium 3.8 D (3.5-5.1) mmol/L Chloride 115 H (98-107) mmol/L Carbon Dioxide 23 (21-32) mmol/L Anion Gap 4.0 (3-11) BUN 3 L (7-18) mg/dl Creatinine 0.57 L (0.6-1.2) mg/dl Est Cr Clr Drug Dosing 95.8 ml/min Est GFR ( Amer) 115.2 ml/min Est GFR (Non-Af Amer) 99.4 ml/min BUN/Creatinine Ratio 5.5 L (10-20) Glucose 82 (70-99) mg/dl Calcium 8.0 L (8.5-10.1) mg/dl Phosphorus 3.4 (2.5-4.9) mg/dl Magnesium 1.5 L (1.8-2.4) mg/dl U OH-Alprazolam Confrm NEGATIVE (<25) ng/mL 7-Amino Clonazepam NEGATIVE (<25) ng/mL Ur Nordiazepam Confirm 194 H (<50) ng/mL U OH-ethylflurazepam NEGATIVE (<50) ng/mL U Lorazepam Cnf GC/MS NEGATIVE (<50) ng/mL U Oxazepam Confm GC/MS 471 H (<50) ng/mL Ur Temazepam Confirm 357 H (<50) ng/mL U OH-Triazolam Confirm NEGATIVE (<50) ng/mL U OH-Midazolam Confirm NEGATIVE (<50) ng/mL Drug Screen Comment SEE NOTE Medications Administered Current Inpatient Medications Acetaminophen (Acetaminophen 325 Mg Tab) 650 mg PO Q6H PRN PRN Reason: Mild Pain Stop: 07/25/21 00:35 Last Admin: 06/27/21 07:50 Dose: 650 mg Documented by: Benzonatate (Benzonatate 100 Mg Capsule) 100 mg PO TID PRN PRN Reason: Cough Stop: 07/25/21 00:35 Docusate Sodium (Docusate Sodium 100 Mg Cap) 100 mg PO BID [facility] Stop: 07/25/21 08:59 Last Admin: 06/27/21 07:49 Dose: Not Given Documented by: Folic Acid (Folic Acid 1 Mg Tab) 1 mg PO QAM [facility] Stop: 07/25/21 08:59 Last Admin: 06/27/21 07:50 Dose: 1 mg Documented by: Heparin Sodium (Porcine) (Heparin Sod 5,000 Unit/0.5 Ml Vial) 5,000 units SQ Q12 LAURA Stop: 07/26/21 20:59 Last Admin: 06/27/21 07:51 Dose: 5,000 units Documented by: Promethazine HCl 12.5 mg/ (Sodium Chloride) 50.5 mls @ 202 mls/hr IV Q6H PRN PRN Reason: Nausea And Vomiting Stop: 07/25/21 00:35 Lorazepam (Ativan) 1 mg in 2 mls @ 2 mls/min IV UD PRN; Protocol PRN Reason: EtOH Withdrawl AWSS Score 6,7 Stop: 07/25/21 00:35 Last Admin: 06/26/21 13:16 Dose: 1 mls/min Documented by: Lorazepam (Ativan) 2 mg in 4 mls @ 4 mls/min IV UD PRN; Protocol PRN Reason: EtOH Withdrawl AWSS Score 8,9 Stop: 07/25/21 00:35 Lorazepam (Ativan) 3 mg in 6 mls @ 4 mls/min IV ONCE PRN; Protocol PRN Reason: EtOH Withdrawl AWSS Score >=10 Stop: 07/25/21 00:35 Metoprolol Succinate (Metoprolol Succ 50mg Ext Rel Tab) 150 mg PO [facility] Stop: 07/25/21 08:59 Last Admin: 06/27/21 07:50 Dose: 150 mg Documented by: Multivitamins ([facility]ivitamin Tab) [facility] Stop: 07/25/21 08:59 Last Admin: 06/27/21 07:51 Dose: 1 tab Documented by: Sennosides (Senna 8.6 Mg Tab) 8.6 mg PO [facility] Stop: 07/25/21 20:59 Last Admin: 06/26/21 20:45 Dose: 8.6 mg Documented by: Thiamine HCl (Thiamine Hcl 100 Mg Tab) 100 mg PO [facility] Stop: 07/25/21 08:59 Last Admin: 06/27/21 07:50 Dose: 100 mg Documented by: Umeclidinium/Vilanterol (Umeclidinium/Vilanterol 62.5/25mcg 7 Puffs/Inhaler) 1 puffs INH [facility] Stop: 07/25/21 20:59 Last Admin: 06/26/21 20:45 Dose: 1 puffs Documented by: Vitamin B Complex (Vitamin B Complex Tab) 1 [facility] Stop: 07/25/21 08:59 Last Admin: 06/27/21 07:50 Dose: 1 tab Documented by:
--- NOTE | 2021-06-27 16:49 | Communication Note ---
Date of Service: June 27, 2021 chart reviewed, liaison was awaiting friend to visit for collateral & will assess patient this pm. 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 She had removed heart monitor and said she was leaving but agitation responded to prn Ativan. On reviewing external med history it appears that Dr. Recinos prescribes Cymbalta 20 + 60 mg for pain (chacholier this month), admission noted as 20 mg? Hx of encephalopathy/ETOH withdrawal but could be unusual presentation of discontinuation syndrome from SNRI in a hospitalized patient. Continue AWSS protocol. Full consult to be completed. If patient requires medication for agitation, benzo likely preferred given hx and can be given IV, otherwise Zyprexa 5 mg acutely if needed.
[2021-06-27] MEDS: SENNA 8.6 MG TAB PO SCH (20:03)
[2021-06-27] MEDS: UMECLIDINIUM/VILANTEROL 62.5/25MCG 7 PUFFS/INHALER INH SCH (20:05)
[2021-06-27] MEDS: LORazepam 1 MG/2 ML VIAL IV PRN (20:15)
--- NOTE | 2021-06-28 07:48 | Hospitalist Progress Note ---
Date of Service June 28, 2021 Assessment & Plan (1) Encephalopathy: (2) Toxic encephalopathy: (3) Alcoholism: Plan: 61 y/o female w/ hx of alcoholism, seizure disorder on Keppra, COPD, history of admission for toxic encephalopathy secondary to polypharmacy [2019], traumatic subdural hematoma/TBI, pulmonary hypertension, orthostatic hypotension, chronic hyponatremia, HCV status post treatment, mood disorder, episodic thrombocytopenia, past tobacco abuse and alcoholic cardiomyopathy [EF 60 to 65% per TTE 2019] was brought to ED 06/24 after the patient was found wandering around in public confused. She is being managed for the following: Metabolic encephalopathy Acute alcohol intoxication impending withdrawal Electrolyte abnormalities monitor & replace as appropriate History of traumatic subdural hematoma/TBI Alcohol abuse, history not reliable from patient. Per patient's partner Mamta [[phone]], patient drinks 2 cases of beer a week [1 case = 36 packs per her] plus some additional 6 to 12 packs. Last alcohol drink was on 06/24 afternoon. Patient noted to be confused by partner the last few days as per family friend. Admitting urinalysis WNL. Admitting toxicology positive for benzodiazepines. Held neuropsychotropic meds on admission until mentation back to baseline and confusion resolves Pt AOx3 at bedside;confusion now resolved AWSS, DT precautions, requiring as needed Ativan. 06/27 - patient's partner Mamta came to the hospital -reports patient's mental status is back to baseline Psychiatry and neurology consulted. Pt not willing/interested in alcohol rehab. Patient also has history of seizures, and follows with [facility] neurology. Seen by psychiatry neurology, appreciate their input, plan to follow-up as outpatient. Neutropenia Neutropenia noted in the past. Per patient's partner Mamta, she has history of neutropenia. She follows Dr. Abdon Ibrahim. Admitting WBC 2.75 with ANC 1.38 06/25 WBC 2.1 with ANC of 0.82K; platelets and hemoglobin WNL but lower than admitting / alcohol abuse. Could be compounded by dilutional effect. 06/27 - WBC 1.6 K No signs of infection at present. Continue to monitor with daily labs Watch out for infection 06/28 - WBC 1.5 K Patient reports some loose stools, will obtain C. difficile and stool culture Will also obtain peripheral smear Overall the patient is feeling well and inquiring about discharge Will need close outpt follow up. History of seizure disorder stable the last few years without medications as per recent outpatient [facility] Neurology visit. Patient seen at [facility] neurologist's office last week of April 2021 follow-up for seizure disorder. Patient claims to have had no seizures for about 3 years. Stopped taking Keppra almost 2 years ago as per note. 72-hour EEG recommended by neurologist. Seen by neurology during this admission, and patient needs to return equipment for EEG. Patient requesting to have her DMV forms filled out so she can start driving again per admitting note Patient having issues with ambulatory EEG leads the last 2 days as per family. We will continue to monitor. Contacted neurology for further eval prior to DC. COPD, pulmonary hypertension Chronic, Stable c/w home meds. alcoholic cardiomyopathy EF 60 to 65%, TTE 2019 patient on the dry side continue to monitor mood disorder: unknown status Substance abuse: past tobacco and current alcohol. unknown status f/u toxicology screen Psychiatry consulted Episodic thrombocytopenia Currently WNL and stable. PT OT eval DVT prophylaxis with SCDs Re: Episodic thrombocytopenia Full code Ms. Mamta Barboza (patient's partner) contacted - visited at the hospital- reports patient's mental status back to baseline . phone# [phone] Ms. Lisa Fuller (patient family friend/secondary contact) updated of patient status and plan of care over the phone. ([phone]) Disposition: PT recommending rehab upon discharge. Currently however patient is walking in the hallways and walking to the bathroom independently per nursing staff. Admission and Anticipated Discharge Date Admission Date: June 24, 2021 Subjective Patient seen in follow-up of alcohol abuse, encephalopathy. Currently laying in bed, in no acute distress, and is able to answer questions appropriately. Mamta visited patient in the hospital yesterday, and reports that patient is back to her baseline mental status. Neurology and psychiatry saw the patient as well, okay to discharge and follow- up as outpatient. Patient denies any headache/dizziness/chills/chest pain/shortness of breath, abd. pain. She reports some loose stools. Review of Systems Review of Systems: All systems reviewed & are unremarkable except as noted in Subjective Physical Exam Physical Exam: GENERAL: Alert and oriented x3. NAD, on RA. HEENT: NC/AT, No pallor, no icterus. EOMI, PERRL. Oral mucosa moist. NECK: No JVD, no neck masses. HEART: S1 and S2 heard. Regular rate and rhythm. No murmur, no gallop. RESPIRATORY: Normal AP diameter. No accessory muscle use. No wheezing, no crackles. ABDOMEN: Soft, bowel sounds present, nontender, no distention. NEURO:Awake alert oriented, and answering questions appropriately. No facial droop. Speech is clear. Moves extremities. EXTREMITIES: No edema, no erythema seen. Results & Data Results & Data ([facility]) Vital Signs (Past 12 Hours) Vital Signs Temp Pulse Pulse Resp BP Pulse Ox Pulse Ox 06/28/21 03:53 36.5 C 63 16 117/64 99 06/28/21 00:00 98 06/27/21 23:14 36.3 C L 65 18 143/72 H 98 06/27/21 22:30 60 06/27/21 19:51 36.5 C 55 L 18 136/73 95 Laboratory Results 06/28/21 06/28/21 Range/Units 08:48 08:48 WBC 1.51 L (4.8-10.8) K/uL RBC 3.14 L (4.2-5.4) M/uL Hgb 10.9 L (12.0-16.0) g/dL Hct 32.6 L (37-47) % MCV 103.8 H (80-100) fL MCH 34.7 H (25-34) pg MCHC 33.4 (32-36) g/dL RDW Std Deviation 59.6 H (36.4-46.3) fL RDW Coeff of [place] 15.8 H (11.5-14.5) % Plt Count 165 (130-400) K/uL MPV 8.4 (7.4-10.4) fL Sodium 140 (136-145) mmol/L Potassium 3.0 L D (3.5-5.1) mmol/L Chloride 110 H (98-107) mmol/L Carbon Dioxide 25 (21-32) mmol/L Anion Gap 5.0 (3-11) BUN 1 L (7-18) mg/dl Creatinine 0.59 L (0.6-1.2) mg/dl Est Cr Clr Drug Dosing 92.6 ml/min Est GFR ( Amer) 113.9 ml/min Est GFR (Non-Af Amer) 98.2 ml/min BUN/Creatinine Ratio 2.3 L (10-20) Glucose 109 H (70-99) mg/dl Calcium 8.1 L (8.5-10.1) mg/dl Phosphorus 3.8 (2.5-4.9) mg/dl Magnesium 1.3 L (1.8-2.4) mg/dl Medications Administered Current Inpatient Medications Acetaminophen (Acetaminophen 325 Mg Tab) 650 mg PO Q6H PRN PRN Reason: Mild Pain Stop: 07/25/21 00:35 Last Admin: 06/27/21 07:50 Dose: 650 mg Documented by: Benzonatate (Benzonatate 100 Mg Capsule) 100 mg PO TID PRN PRN Reason: Cough Stop: 07/25/21 00:35 Last Admin: 06/27/21 20:13 Dose: 100 mg Documented by: Docusate Sodium (Docusate Sodium 100 Mg Cap) 100 mg PO BID [facility] Stop: 07/25/21 08:59 Last Admin: 06/27/21 20:03 Dose: Not Given Documented by: Folic Acid (Folic Acid 1 Mg Tab) 1 mg PO QAM [facility] Stop: 07/25/21 08:59 Last Admin: 06/27/21 07:50 Dose: 1 mg Documented by: Heparin Sodium (Porcine) (Heparin Sod 5,000 Unit/0.5 Ml Vial) 5,000 units SQ Q12 [facility] Stop: 07/26/21 20:59 Last Admin: 06/27/21 20:05 Dose: 5,000 units Documented by: Promethazine HCl 12.5 mg/ (Sodium Chloride) 50.5 mls @ 202 mls/hr IV Q6H PRN PRN Reason: Nausea And Vomiting Stop: 07/25/21 00:35 Lorazepam (Ativan) 1 mg in 2 mls @ 2 mls/min IV UD PRN; Protocol PRN Reason: EtOH Withdrawl AWSS Score 6,7 Stop: 07/25/21 00:35 Last Admin: 06/27/21 20:15 Dose: 2 mls/min Documented by: Lorazepam (Ativan) 2 mg in 4 mls @ 4 mls/min IV UD PRN; Protocol PRN Reason: EtOH Withdrawl AWSS Score 8,9 Stop: 07/25/21 00:35 Lorazepam (Ativan) 3 mg in 6 mls @ 4 mls/min IV ONCE PRN; Protocol PRN Reason: EtOH Withdrawl AWSS Score >=10 Stop: 07/25/21 00:35 Metoprolol Succinate (Metoprolol Succ 50mg Ext Rel Tab) 150 mg PO [facility] Stop: 07/25/21 08:59 Last Admin: 06/27/21 07:50 Dose: 150 mg Documented by: Multivitamins (Multivitamin Tab) 1 tab PO [facility] Stop: 07/25/21 08:59 Last Admin: 06/27/21 07:51 Dose: 1 tab Documented by: Sennosides (Senna 8.6 Mg Tab) 8.6 mg PO [facility] Stop: 07/25/21 20:59 Last Admin: 06/27/21 20:03 Dose: Not Given Documented by: Thiamine HCl (Thiamine Hcl 100 Mg Tab) 100 mg PO [facility] Stop: 07/25/21 08:59 Last Admin: 06/27/21 07:50 Dose: 100 mg Documented by: Umeclidinium/Vilanterol (Umeclidinium/Vilanterol 62.5/25mcg 7 Puffs/Inhaler) 1 puffs INH [facility] Stop: 07/25/21 20:59 Last Admin: 06/27/21 20:05 Dose: 1 puffs Documented by: Vitamin B Complex (Vitamin B Complex Tab) 1 tab PO [facility] Stop: 07/25/21 08:59 Last Admin: 06/27/21 07:50 Dose: 1 tab Documented by:
[2021-06-28] MEDS: DOCUSATE SODIUM 100 MG CAP PO SCH (08:09)
[2021-06-28] MEDS: FOLIC ACID 1 MG TAB PO SCH (08:10)
[2021-06-28] MEDS: METOPROLOL SUCC 50MG EXT REL TAB PO SCH (08:10)
[2021-06-28] MEDS: HEPARIN SOD 5,000 UNIT/0.5 ML VIAL SQ SCH (08:10)
[2021-06-28] MEDS: THIAMINE HCL 100 MG TAB PO SCH (08:11)
[2021-06-28] MEDS: VITAMIN B COMPLEX TAB PO SCH (08:11)
[2021-06-28] MEDS: MULTIVITAMIN TAB PO SCH (08:11)
[2021-06-28] MEDS: ACETAMINOPHEN 325 MG TAB PO PRN (08:11)
[2021-06-28 09:18] LABS: Hematocrit (blood only) 32.6 % (37-47); Hemoglobin 10.9 g/dL (12.0-16.0); Mean Corpuscular Hemoglobin 34.7 pg (25-34); Mean Corpuscular Hgb Conc 33.4 g/dL (32-36); Mean Corpuscular Volume 103.8 fL (80-100); Mean Platelet Volume 8.4 fL (7.4-10.4); Platelet Count 165 K/uL (130-400); RDW Coefficient of Variation 15.8 % (11.5-14.5); RDW Standard Deviation 59.6 fL (36.4-46.3); Red Blood Count 3.14 M/uL (4.2-5.4); White Blood Count 1.51 K/uL (4.8-10.8)
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
[2021-06-28] MEDS ORDERED: LORazepam 0.5 MG/1 ML VIAL IV STA (09:37)
[2021-06-28 10:03] LABS: BUN Creatinine Ratio 2.3 (10-20); Calcium 8.1 mg/dl (8.5-10.1); Creatinine Clr Calc Pharmacy 92.6 ml/min; Est GFR (African American) 113.9 ml/min; Est GFR (Non-African American) 98.2 ml/min; Magnesium 1.3 mg/dl (1.8-2.4); Phosphorus 3.8 mg/dl (2.5-4.9)
[2021-06-28] MEDS ORDERED: DULoxetine HCL 30 MG CAP PO STA (10:29)
[2021-06-28] MEDS ORDERED: POTASSIUM CHLORIDE CRTAB 20 MEQ TABCR PO STA (10:57)
[2021-06-28] MEDS ORDERED: CYANOCOBALAMIN 500 MCG TABLET (VITAMIN B-12) PO SCH (11:30)
[2021-06-28] MEDS: MAGNESIUM SULFATE / D5W 1 GM/100 ML BAG IV SCH ×2 (11:52→13:42)
--- NOTE | 2021-06-28 18:00 | Discharge Summary ---
Date of Service June 28, 2021 Admission HPI Per Admitting Provider History obtained from patient, family, and records. Limited history from patient secondary to confusion. Medical history significant for seizure disorder currently not on medications, traumatic subdural hematoma/traumatic brain injury, COPD, pulmonary hypertension as per records, alcoholic cardiomyopathy (EF 60 to 65%, TTE 2019), orthostatic hypotension as per records, chronic hyponatremia, history HCV sp treatment, mood disorder, episodic thrombocytopenia, alcohol abuse, past tobacco abuse. Last confinement 2019 for toxic encephalopathy secondary to polypharmacy. Patient seen at [facility] neurologist's office last week of April 2021 follow-up for seizure disorder. Patient requesting to have her DMV forms filled out so she can start driving again. Patient running for public office as per documentation. Patient claims to have had no seizures for about 3 years. Stopped taking Keppra almost 2 years ago as per note. 72-hour EEG recommended by neurologist. Patient having issues with ambulatory EEG leads the last 2 days as per family. Patient noted to be confused by partner the last few days as per family friend. Patient noted to be wandering in public this afternoon noted to be confused. Patient brought to the ER for evaluation. She denies chest pain, S OB, headache, belly pain, recent seizures. 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 Admission Exam Per Admitting Provider GENERAL: Disoriented, somewhat restless, no respiratory distress SKIN: Normal color, warm HEENT: [place] palpebral conjunctivae, no ptosis, dry buccal mucosa NECK : Supple, no tenderness CHEST : CTA, no tenderness HEART : RRR, no obvious murmurs ABDOMEN: Some distention, nontender EXTREMITIES : No LE swelling/tenderness, scabs over right upper extremity, no other conspicuous deformities noted NEUROLOGIC : Disoriented, no facial asymmetry, gait and cast not assessed Principal Diagnosis Acute alcohol intoxication Toxic encephalopathy Electrolyte abnormalities Neutropenia History of seizure disorder Discharge Exam GENERAL: Alert and oriented x3. NAD, on RA. HEENT: NC/AT, No pallor, no icterus. EOMI, PERRL. Oral mucosa moist. NECK: No JVD, no neck masses. HEART: S1 and S2 heard. Regular rate and rhythm. No murmur, no gallop. RESPIRATORY: Normal AP diameter. No accessory muscle use. No wheezing, no crackles. ABDOMEN: Soft, bowel sounds present, nontender, no distention. NEURO:Awake alert oriented, and answering questions appropriately. No facial droop. Speech is clear. Moves extremities. EXTREMITIES: No edema, no erythema seen. Discharge Data Allergies Allergy/AdvReac Type Severity Reaction Status Date / Time acetaminophen [From Tylenol] Allergy Unknown Unknown Verified 06/24/21 18:23 ibuprofen Allergy Unknown Unknown Verified 06/24/21 18:23 gabapentin AdvReac Severe Confusion Verified 06/24/21 18:23 Consultations 06/24/21 20:42 ED Decision to Admit Stat 06/27/21 11:52 Consult Psychiatry Routine 06/27/21 12:52 Consult Neurology Routine Ordered Studies 06/24/21 18:32 CT head/brain wo con Stat Hospital Course (1) Encephalopathy: (2) Toxic encephalopathy: (3) Alcoholism: 61 y/o female w/ hx of alcoholism, seizure disorder on Keppra, COPD, history of admission for toxic encephalopathy secondary to polypharmacy [2019], traumatic subdural hematoma/TBI, pulmonary hypertension, orthostatic hypotension, chronic hyponatremia, HCV status post treatment, mood disorder, episodic thrombocytopenia, past tobacco abuse and alcoholic cardiomyopathy [EF 60 to 65% per TTE 2019] was brought to ED 06/24 after the patient was found wandering around in public confused. She is being managed for the following: Metabolic encephalopathy Acute alcohol intoxication impending withdrawal Electrolyte abnormalities monitor & replace as appropriate History of traumatic subdural hematoma/TBI Alcohol abuse, history not reliable from patient. Per patient's partner Mamta [[phone]], patient drinks 2 cases of beer a week [1 case = 36 packs per her] plus some additional 6 to 12 packs. Last alcohol drink was on 06/24 afternoon. Patient noted to be confused by partner the last few days as per family friend. Admitting urinalysis WNL. Admitting toxicology positive for benzodiazepines. Held neuropsychotropic meds on admission until mentation back to baseline and confusion resolves Pt AOx3 at bedside;confusion now resolved AWSS, DT precautions, requiring as needed Ativan. 06/27 - patient's partner Mamta came to the hospital -reports patient's mental status is back to baseline Psychiatry and neurology consulted. Pt not willing/interested in alcohol rehab. Patient also has history of seizures, and follows with [facility] neurology. Seen by psychiatry neurology, appreciate their input, plan to follow-up as outpatient. Neutropenia Neutropenia noted in the past. Per patient's partner Mamta, she has history of neutropenia. She follows Dr. Abdon Ibrahim. Admitting WBC 2.75 with ANC 1.38 06/25 WBC 2.1 with ANC of 0.82K; platelets and hemoglobin WNL but lower than admitting / alcohol abuse. Could be compounded by dilutional effect. 06/27 - WBC 1.6 K No signs of infection at present. Continue to monitor with daily labs Watch out for infection 06/28/2021 - WBC 1.5 K Patient reports some loose stools, will obtain C. difficile and stool culture Will also obtain peripheral smear Overall the patient is feeling well and inquiring about discharge Will need close outpt follow up. Update: Peripheral smear - The peripheral blood smear, CBC and clinical history (Reason for consult: neutropenia, other history: alcohol abuse, encephalopathy, HCV) are reviewed. The smear shows normo/macrocytic appearing erythrocytes without anisopoikilocytosis. No significant number of schistocytes or spherocytes is identified. Polychromatophilic cells (a subset of reticulocytes) are noted. Leukocytes are decreased in number without an obvious lineage specific decrease. Leukocyte morphology is unremarkable. Platelets appear unremarkable in number and are morphologically unremarkable. The associated CBC shows WBC 1.5, HGB 10.9 with high MCV of 104 and normal MCHC. I do not see recent B12/folates. No overt changes of a myelodysplastic syndrome or hemolytic anemia are seen. The reviewed findings are consistent with a macrocytic anemia and leukopenia. Cytopenias may be seen with liver disease. Leo Thomas M.D. Per patient's nurse, patient only had 1 soft/not watery BM, C. difficile negative. Stool cultures pending History of seizure disorder stable the last few years without medications as per recent outpatient [facility] Neurology visit. Patient seen at [facility] neurologist's office last week of April 2021 follow-up for seizure disorder. Patient claims to have had no seizures for about 3 years. Stopped taking Keppra almost 2 years ago as per note. 72-hour EEG recommended by neurologist. Seen by neurology during this admission, and patient needs to return equipment for EEG. Patient requesting to have her DMV forms filled out so she can start driving again per admitting note Patient having issues with ambulatory EEG leads the last 2 days as per family. We will continue to monitor. Contacted neurology for further eval prior to DC. COPD, pulmonary hypertension Chronic, Stable c/w home meds. alcoholic cardiomyopathy EF 60 to 65%, TTE 2019 patient on the dry side continue to monitor mood disorder: unknown status Substance abuse: past tobacco and current alcohol. unknown status f/u toxicology screen Psychiatry consulted Episodic thrombocytopenia Currently WNL and stable. PT OT eval DVT prophylaxis with SCDs Re: Episodic thrombocytopenia Full code Ms. Mamta Barboza (patient's partner) contacted - visited at the hospital- reports patient's mental status back to baseline . phone# [phone] Disposition: Plan to DC home. Total Time Total Time Spent Total Time Spent (In Minutes): 40 Discharge Plan Discharge Items Patient Disposition: Home - Self-Care Reason For Visit: ENCEPHALOPATHY Discharge Diagnosis: Acute alcohol intoxication Toxic encephalopathy Electrolyte abnormalities Neutropenia History of seizure disorder Activity: Per Instructions section Non-emergency contact: Primary Care Provider and Neurologist Call non-emergency contact if: you have any medication questions and your symptoms worsen Follow-up/Referrals: Richard Carrillo MD [Physician] - (Date & Time 07/26/2021 12:00 PM Provider Richard Carrillo MD Department Neurology [facility] ) Manuelito Caal DO [Primary Care Provider] - (Date & Time 07/03/2021 3:00 PM Provider Bailee Recinos DO Department Family Practice [facility] ) Diet: Regular Diet Comment: Neutropenic -recommend all foods to be cooked, no raw foods Addtl Attending Provider Instructions: Follow-up with your primary care doctor, the appointment was scheduled for you for July 03. At that time, CBC/blood work should be obtained to check on your neutropenia. You may need to follow-up with Dr. Ibrahim again. In the meantime, be cautious given your neutropenia, recommend not to eat any raw foods and all the food should be cooked. Also avoid any sick contacts. Wash your hands frequently, and wear a mask whenever you are not at home. Your magnesium and potassium were also low, recommend to take supplements as prescribed. It is imperative, that you significantly decrease your alcohol consumption. Pending Studies at Discharge: Yes Studies:: Stool studies Stand-Alone Forms: My [facility], Smoking Cessation Medications and DC Order Prescriptions: New cyanocobalamin (vitamin B-12) 500 mcg Tablet 1,000 mcg PO QAM Qty: 30 RF: 0 folic acid 1 mg Tablet 1 mg PO QAM Qty: 30 RF: 0 thiamine HCl (vitamin B1) [Vitamin B-1] 100 mg Tablet 100 mg PO QAM Qty: 30 RF: 0 magnesium oxide 420 mg tablet 420 mg PO DAILY Qty: 30 RF: 0 potassium chloride 20 mEq tablet extended release 20 meq PO DAILY Qty: 30 RF: 0 Continued metoprolol succinate [Toprol XL] 50 mg tablet extended release 24 hr 150 mg PO QAM RF: 0 triamcinolone acetonide 0.1 % cream 1 applic TOPICAL BID PRN (Reason: BREAKOUTS) RF: 0 albuterol sulfate 90 mcg/actuation Hfa Aerosol Inhaler 2 puff INHALATION QID PRN (Reason: Shortness Of Breath Or Wheezing) RF: 0 Anoro Ellipta 62.5-25 mcg/actuation blister with device 1 inh INHALATION HS RF: 0 benzonatate 100 mg capsule 100 mg PO TID PRN (Reason: Cough) RF: 0 vitamin B complex Tablet 1 tab PO QAM RF: 0 duloxetine 20 mg capsule,delayed release(DR/EC) 20 mg PO QAM RF: 0 sennosides [Senokot] 8.6 mg tablet 8.6 mg PO HS Qty: 30 RF: 0 docusate sodium [Colace] 100 mg capsule 100 mg PO BID Qty: 30 RF: 0 ibuprofen 200 mg Tablet 400 mg PO Q6H PRN (Reason: Pain) RF: 0 Discharge Orders: Discharge Order (Routine); Ordered 06/28/21 Ordered By: Nabil Overton Admission Data Admit Date/Time: 06/24/21 21:58 Attending Provider: Nabil Overton Admit Provider: Daniel Gleason Primary Care Provider: Manuelito Caal Other Providers: Daniel Gleason ; Yuliana Armando ; Sangeeta Vargas ; Laura Guerra ; Lucia Millan ; Leo Madsen ; Francisco Grant
== END 2021-06-28 17:30 | disposition home or self-care (01) | DRG 92 ==
LOC: ED 17:54 → 2W 21:58 → SUATTDRO 21:58 → 2W 23:57

== ENCOUNTER 2021-11-21 15:19 | Inpatient (IN) ==
[2021-11-21] MEDS ORDERED: SODIUM CHLORIDE 0.9% 1000ML 1,000 ML IV SCH (15:45)
[2021-11-21 16:19] LABS: Basophils # (auto) 0.05 K/uL (0-0.2); Basophils % (auto) 1.9 %; Eosinophils # (auto) 0.05 K/uL (0-0.5); Eosinophils % (auto) 1.9 %; Hematocrit (blood only) 34.9 % (37-47); Hemoglobin 11.9 g/dL (12.0-16.0); Immature Granulocytes # (auto) 0.01 K/uL (0.00-0.02); Immature Granulocytes % (auto) 0.4 %; Lymphocytes # (auto) 1.19 K/uL (1.2-3.4); Lymphocytes % (auto) 44.1 %; Mean Corpuscular Hemoglobin 31.4 pg (25-34); Mean Corpuscular Hgb Conc 34.1 g/dL (32-36); Mean Corpuscular Volume 92.1 fL (80-100); Mean Platelet Volume 8.5 fL (7.4-10.4); Monocytes # (auto) 0.19 K/uL (0.11-0.59); Neutrophils # (auto) 1.21 K/uL (1.4-6.5); Neutrophils % (auto) 44.7 %; Platelet Count 181 K/uL (130-400); RDW Coefficient of Variation 16.3 % (11.5-14.5); RDW Standard Deviation 55.1 fL (36.4-46.3); Red Blood Count 3.79 M/uL (4.2-5.4)
--- NOTE | 2021-11-21 16:30 | CT Scan Report ---
CT head/brain wo con CLINICAL HISTORY: ams Technique: Contiguous axial CT images of the head were acquired from the base of the skull to the crystal ching without intravenous contrast administration. Images were viewed in brain, subdural [facility]. Automated dose lowering techniques and/or adjustment according to patient size were utilized for this exam. Comparison: Comparison is made to CT head 06/24/2021 Findings: Areas of decreased attenuation are present in the periventricular and subcortical white matter bilate rally consistent with small vessel ischemic disease. Generalized cerebral atrophy with commensurate e nlargement of the ventricles, sulci, and cisterns is also present. There is no acute intracranial hem orrhage or evidence of acute territorial infarction. No shift of the midline structures, mass effect, or extra-axial abnormalities are shown. Atherosclerotic calcifications are present in the intracran ial segments of the internal carotid arteries. Imaged portions of the paranasal sinuses and mastoid air cells are clear. The orbits appear normal. Postcraniotomy changes are seen in the right calvarium. Impression: No acute intracranial hemorrhage, no evidence of acute territorial infarction or other acute intracra nial disease process. ACT 112: Negative or not required by law. Electronically signed by: Jay Hernandez M.D. 11/21/2021 4:28 PM
[2021-11-21 16:31] LABS: HCO3 VBG 19 mmol/L; PCO2 VBG 33 mmHg (38-50); PO2 VBG 34 mmHg; pH VBG 7.38 (7.36-7.41)
[2021-11-21 16:33] LABS: Oxygen Saturation VBG < 60.0 %
--- NOTE | 2021-11-21 16:33 | XRay Report ---
XR chest 1V portable CLINICAL HISTORY: SEPSIS TECHNIQUE: Single frontal radiograph of the chest was obtained. Comparison: Comparison is made to chest one view 06/24/2021 FINDINGS: No lines and tubes are seen. The cardiomediastinal silhouette is normal. The lungs are clear. No evid ence of pleural effusion or pneumothorax. IMPRESSION: No acute chest disease. ACT 112: Negative or not required by law. Electronically signed by: Jay Hernandez M.D. 11/21/2021 4:32 PM
--- NOTE | 2021-11-21 16:33 | CT Scan Report ---
CT cervical spine wo con CLINICAL HISTORY: ams TECHNIQUE: Multidetector row helical CT of the cervical spine was performed without administration of intravenous contrast. Coronal and sagittal reformations were obtained. Automated dose lowering techn iques and/or adjustment according to patient size were utilized for this exam. Comparison: Comparison is made to CT cervical spine 01/17/2020 FINDINGS: Anterior cervical fixation hardware is seen. Degenerative changes are seen in the visualized spine. T he alignment is normal. Soft tissues are unremarkable. IMPRESSION: No evidence of acute bony injury. ACT 112: Negative or not required by law. Electronically signed by: Jay Hernandez M.D. 11/21/2021 4:32 PM
--- NOTE | 2021-11-21 16:48 | Emergency Department Note ---
History of Present Illness General Chief complaint: Confusion Stated complaint: SEEING THINGS, CONFUSION, NOT ACTING RIGHT Time Seen by Provider: 11/21/21 15:33 History of Present Illness Provider complaint: Altered mental status Onset (ago): week(s) 1 Maximum Pain Intensity: 8 Associated symptoms: + confusion and + shortness of breath; no chest pain, no cough, no fever/chills, no headaches, no malaise, no nausea/vomiting, no seizure or no weakness 61-year-old female presents emergency department with partner. The patient reports she is here because she has been having shortness of breath for the last year. Patient is unable to give much more information as she is slurring her words and not making much sense. Patient does admit to drinking 5 beers today. Partner at bedside states that the patient has been increasing confused over the last week and wants her evaluated. Patient usually drinks 15 beers per day. No reported falls or traumas. No fevers. No nausea or vomiting. Home Medications Medication Instructions Recorded Confirmed Type triamcinolone acetonide 0.1 % 1 applic TOPICAL BID PRN 09/20/19 11/21/21 History topical cream vitamin B complex 1 tab PO QAM 11/25/20 11/21/21 History ibuprofen 200 mg tablet 400 mg PO Q6H PRN 06/24/21 11/21/21 History folic acid 1 mg tablet 1 mg PO QAM #30 tab 06/28/21 11/21/21 Rx thiamine HCl (vitamin B1) 100 mg 100 mg PO QAM #30 tab 06/28/21 11/21/21 Rx tablet (Vitamin B-1) aspirin 325 mg tablet 325 mg PO DIRECTED PRN 11/21/21 11/21/21 History celecoxib 200 mg capsule 200 mg PO DAILY 11/21/21 11/21/21 History duloxetine 60 mg capsule,delayed 60 mg PO DAILY 11/21/21 11/21/21 History release hydroxyzine HCl 10 mg tablet 10 mg PO TID PRN 11/21/21 11/21/21 History metoprolol succinate 25 mg 25 mg PO DAILY 11/21/21 11/21/21 History tablet,extended release 24 hr omeprazole 20 mg capsule,delayed 25 mg PO DAILY 11/21/21 11/21/21 History release rizatriptan 10 mg disintegrating 10 mg PO DIRECTED PRN MDD 3 11/21/21 11/21/21 History tablet DOSES/24 HOURS Allergies Allergy/AdvReac Type Severity Reaction Status Date / Time gabapentin AdvReac Severe Confusion Verified 11/21/21 16:47 acetaminophen [From Tylenol] AdvReac Unknown CONTRAINDICATED Verified 11/21/21 16:47 DUE TO LIVER ISSUES ibuprofen AdvReac Unknown CONTRAINDICATED Verified 11/21/21 16:47 DUE TO LIVER ISSUES Past Med/Surg History Medical History (Updated 11/21/21 @ 18:44 by Bryn Hurley DO) Alcoholism Chronic hyponatremia Chronic pancreatitis COPD (chronic obstructive pulmonary disease) Displacement 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 (08/22/11) History of craniotomy Due to subdural hematoma from fall History of tobacco abuse Nonischemic cardiomyopathy Seizure disorder (05/16/12) Severe pulmonary arterial systolic hypertension Uterine leiomyoma (07/18/11) Surgical History History of arthroscopic procedure on shoulder History of onel hole surgery History of carpal tunnel surgery History of cholecystectomy History of hysterectomy S/P cervical spinal fusion Family History Mother Hypertension Social History Smoking Status: Never smoker Tobacco Type: Cigarettes Second Hand Exposure: No; Hx Alcohol Use: Yes Alcohol type: beer Alcohol Intake Frequency Comment: 5 beers/day Hx Substance Use: No (pt stated no but then stated "I take Valium for anxiety") Preferred Language: Mohawk Communication Ability: Effective Office Support Associate Required: No Beliefs That Will Affect Care: None marital status: Single Current Living Situation: Family Current Living Situation Comment: pt did not answer the question clearly How many Children do You have: 0 Feels Safe at Home: Yes Assistive Devices: Glasses Review of Systems Unobtainable due to cognitive status Physical Exam Vital Signs Vital Signs - 24 hr 11/21/21 15:21 11/21/21 16:54 11/21/21 17:09 Temperature 36.4 C L Temperature Source Temporal Artery Scan Pulse Rate 82 85 Respiratory Rate 18 20 Respiratory Effort / Characteristics Blood Pressure 91/59 L 104/58 L Blood Pressure Mean 69 73 Blood Pressure Position Sitting Pulse Oximetry 100 97 Oxygen Delivery Method Room Air Room Air Sepsis Recent Fever Within 48 Hours No Sepsis New/Unexplained Change in Mental Status No Sepsis Action Taken by Nursing No Action Required 11/21/21 17:10 11/21/21 17:11 11/21/21 18:31 Temperature Temperature Source Pulse Rate 91 H Respiratory Rate 20 Respiratory Effort / Characteristics Non-Labored Spontaneous Blood Pressure 116/70 Blood Pressure Mean 85 Blood Pressure Position Pulse Oximetry 97 97 97 Oxygen Delivery Method Room Air Room Air Room Air Sepsis Recent Fever Within 48 Hours Sepsis New/Unexplained Change in Mental Status Sepsis Action Taken by Nursing Physical Exam HENT: Exam performed. -Head: Normocephalic and atraumatic. -Right Ear: External ear normal. No mastoid tenderness. -Left Ear: External ear normal. No mastoid tenderness. -Mouth/Throat: The oropharynx is clear and moist. No trismus in the jaw. No dental abscesses or uvula swelling. No oropharyngeal exudate or tonsillar abscesses. EYES: Conjunctivae and EOM are normal. Pupils are equal, round, and reactive to light. Right eye exhibits no discharge. Left eye exhibits no discharge. No scleral icterus. NECK: Normal range of motion. Neck supple. No JVD present. No spinous process tenderness present. No carotid bruit present. No rigidity. No tracheal deviation and normal range of motion present. No Brudzinski's sign and no Kernig's sign noted. CV: Normal rate, regular rhythm, normal heart sounds and intact distal pulses. There is no peripheral edema. Palpable radial pulses bue. PULM/CHEST: Effort normal and breath sounds normal. No respiratory distress. No stridor. She has no wheezes. She has no rales. -Chest Wall: She exhibits no tenderness. ABD: The abdomen is soft. Bowel sounds are normal. She has no distension. No mass is present. There is no tenderness. There is no rebound, no guarding, no Jhaveri's sign and no tenderness at McBurney's point. Rovsig negative MUSC/SKEL: Normal range of motion. There is no peripheral edema, tenderness or deformity. LYMPH: No cervical adenopathy. NEURO: She is alert and oriented to person, place, and time. She has normal strength. No cranial nerve deficit or sensory deficit. Coordination and gait normal. GCS eye subscore is 4. GCS verbal subscore is 5. GCS motor subscore is 6. Cerebellar tests wnl. Course Course 1533: The patient was evaluated in room B3. A complete history and physical exam was performed Cardiac monitoring: An order was placed for continuous cardiac monitoring. The monitor shows a rate of 80 with sinus rhythm 1702: Vital signs stable. Labs show leukopenia of 2.7. Patient has chronic leukopenia. Hemoglobin 11.9. Platelet count 181. INR 1.2 APTT 30. VBG shows venous pH of 7.38 venous PCO2 of 33 venous PO2 of 34 and bicarb of 19. Sodium 133. Here potassium hemolyzed however an i-STAT showed a potassium of 4.3. Chloride 103 CO2 18 anion gap 12. BUN 14 creatinine 1.07. Lactic acid within normal limits. Troponin negative. Pro-Kelvin negative. Patient salicylate level came back elevated at 45.5 and Tylenol level of 11. I spoke with the patient and patient's partner at bedside there is no acute ingestion or intention for self-harm. The partner states that the patient takes aspirin Tylenol Motrin [id number] for her chronic pain. Patient reports she last took 2 aspirin at 430 this morning. Partner states she is not sure if this is accurate as the patient usually takes 3-4 aspirin at a time. I did discuss the case with poison control [place]. She recommends treating for salicylate toxicity. She recommends 3 A of bicarb to begin with. She then re commend starting a bicarb drip of D5W with 150 mEq of bicarb with 40 of KCl at double maintenance fluids. This was to be started at 200 cc/h. She recommends titrating this bicarb drip to a venous pH of 7.5-7.55. She recommends trending salicylates, VBG, and potassium every 2 hours. She states the bicarb drip can be stopped when the salicylate levels less than 30. She states that the salicylate level should be checked for 2 more times every 2 hours after the bicarb drip is stopped to make sure there is no rebound salicylate level. She also recommends starting the patient on NAC therapy as patient's Tylenol level is greater than 10. NAC therapy was ordered as well as the bicarb at the r ecommendations of the Poison Control Center. 1729: [facility] spoke with Marleen who states to admit to Dr. Hurd. ICU has been contacted also. 1733: Spoke with Dr. Liang who accept the patient to the ICU. 1802: In[facility] that [facility] that the [facility] has been discharged from [facility]. Patient now sees [facility]. Patient be admitted to the [facility] hospitalist team Dr. Prieto notified. Administered Medications Sodium Bicarbonate 150 meq/Potassium Chloride 40 meq/Dextrose 1,170 mls @ 200 mls/hr IV .[id number] [facility] Stop: 12/21/21 17:29 Last Admin: 11/21/21 18:27 Dose: 200 mls/hr Documented by: [id number] Discontinued Medications Sodium Chloride (Nss 1000ml) 1,000 mls @ 999 mls/hr IV .Q1H1M [facility] Stop: 11/21/21 16:45 Last Admin: 11/21/21 16:52 Dose: 999 mls/hr Documented by: [id number] Acetylcysteine 10,830 mg/ (Dextrose) 254.15 mls @ 200 mls/hr IV ONCE ONE; Protocol Stop: 11/21/21 18:27 Last Admin: 11/21/21 18:25 Dose: 200 mls/hr Documented by: [id number] Sodium Bicarbonate (Sodium Bicarb 8.4% Inj 50 Meq/50 Ml Syr) 150 meq IV NOW [facility] [[email or web address]] Stop: 11/21/21 17:16 Last Admin: 11/21/21 17:24 Dose: 150 meq Documented by: [id number] Critical Care Time Critical Care Time: Yes Total Critical Care Time: 119 I have personally spent greater than 119 minutes of critical care time in the direct management of this patient. This includes bedside care, interpretation of diagnostic studies, and testing, discussion with consultants, patient, and family members, and other required patient management activities. This 119 minutes is in excess of all separately billable procedures. Medical Decision Making Laboratory Data Result diagrams: 11/21/21 16:05 11/21/21 17:03 Lab Results 11/21/21 11/21/21 11/21/21 Range/Units 15:57 16:05 16:05 WBC 2.70 L (4.8-10.8) K/uL RBC 3.79 L (4.2-5.4) M/uL Hgb 11.9 L (12.0-16.0) g/dL POC Hgb (12.0-16.0) g/dl Hct 34.9 L (37-47) % POC Hct (37-47) % MCV 92.1 (80-100) fL MCH 31.4 (25-34) pg MCHC 34.1 (32-36) g/dL RDW Std Deviation 55.1 H (36.4-46.3) fL RDW Coeff of [place] 16.3 H (11.5-14.5) % Plt Count 181 (130-400) K/uL MPV 8.5 (7.4-10.4) fL Immature Gran % (Auto) 0.4 % Neut % (Auto) 44.7 % Lymph % (Auto) 44.1 % [place] % (Auto) 7.0 % Eos % (Auto) 1.9 % Baso % (Auto) 1.9 % Neut # (Auto) 1.21 L (1.4-6.5) K/uL Lymph # (Auto) 1.19 L (1.2-3.4) K/uL [place] # (Auto) 0.19 (0.11-0.59) K/uL Eos # (Auto) 0.05 (0-0.5) K/uL Baso # (Auto) 0.05 (0-0.2) K/uL Immature Gran # (Auto) 0.01 (0.00-0.02) K/uL PT Cancelled INR Cancelled APTT Cancelled PTT Ratio Cancelled VBG pH (7.36-7.41) VBG pCO2 (38-50) mmHg VBG pO2 mmHg VBG HCO3 mmol/L VBG O2 Saturation % VBG Base Excess mEq/L Barometric Pressure mm/Hg POC Sodium (135-144) mmol/L Sodium (136-145) mmol/L POC Potassium (3.3-5.0) mmol/L Potassium (3.5-5.1) mmol/L POC Chloride (101-112) mmol/L Chloride (98-107) mmol/L Carbon Dioxide (21-32) mmol/L POC Total CO2 (24-31) mmol/L Anion Gap (3-11) POC Anion Gap (16-25) mmol/L POC BUN (7-18) mg/dl BUN (6-23) mg/dl Creatinine (0.6-1.2) mg/dl POC Creatinine (0.6-1.3) mg/dl Est Cr Clr Drug Dosing ml/min Est GFR ( Amer) ml/min Est GFR (Non-Af Amer) ml/min BUN/Creatinine Ratio (10-20) Glucose (70-99(Fasting)) mg/dl POC Glucose (other) (70-99) mg/dl Lactate 1.2 (0.4-2.0) mmol/L Calcium (8.5-10.1) mg/dl POC Ioniz Calcium Kar (1.12-1.32) mmol/l Magnesium (1.7-2.4) mg/dl Total Bilirubin (0.2-1.0) mg/dl AST (13-39) U/L ALT (7-52) U/L Alkaline Phosphatase (34-104) U/L Ammonia (18-72) umol/L Troponin I (0-0.04) ng/ml Total Protein (6.0-8.3) gm/dl Albumin (3.4-5.0) gm/dl Globulin (2.5-4.0) gm/dl Albumin/Globulin Ratio (0.9-2) Lipase (11-82) U/L Procalcitonin (0-0.5) ng/ml Urine Color Urine Appearance (Clear) Urine pH (4.5-7.5) Ur Specific [place] (1.000-1.030) Urine Protein (Negative) Urine Glucose (UA) (Negative) Urine Ketones (Negative) Urine Blood (Negative) Urine Nitrite (Negative) Urine Bilirubin (Negative) Urine Urobilinogen (Negative) Ur Leukocyte Esterase (Negative) Salicylates (3.0-30) mg/dl Urine Opiates Screen (Neg) Ur Methadone, Qual (Neg) Acetaminophen (10-30) ug/ml Urine Barbiturates (Neg) Ur Phencyclidine (PCP) (Neg) U Amphetamin/Meth Scrn (Neg) MDMA (Ecstasy) Screen (Neg) U Benzodiazepines Scrn (Neg) Ur Cocaine Metabolite (Neg) U Marijuana (THC) Screen (Neg) Ethyl Alcohol mg/dL (<10.0) mg/dl Influ A Molecular Assay (Negative) Influ B Molecular Assay (Negative) SARS-CoV-2, RNA, NAAT (NEGATIVE) 11/21/21 11/21/21 11/21/21 Range/Units 16:05 16:05 16:05 WBC (4.8-10.8) K/uL RBC (4.2-5.4) M/uL Hgb (12.0-16.0) g/dL POC Hgb (12.0-16.0) g/dl Hct (37-47) % POC Hct (37-47) % MCV (80-100) fL MCH (25-34) pg MCHC (32-36) g/dL RDW Std Deviation (36.4-46.3) fL RDW Coeff of [place] (11.5-14.5) % Plt Count (130-400) K/uL MPV (7.4-10.4) fL Immature Gran % (Auto) % Neut % (Auto) % Lymph % (Auto) % [place] % (Auto) % Eos % (Auto) % Baso % (Auto) % Neut # (Auto) (1.4-6.5) K/uL Lymph # (Auto) (1.2-3.4) K/uL [place] # (Auto) (0.11-0.59) K/uL Eos # (Auto) (0-0.5) K/uL Baso # (Auto) (0-0.2) K/uL Immature Gran # (Auto) (0.00-0.02) K/uL PT INR APTT PTT Ratio VBG pH (7.36-7.41) VBG pCO2 (38-50) mmHg VBG pO2 mmHg VBG HCO3 mmol/L VBG O2 Saturation % VBG Base Excess mEq/L Barometric Pressure mm/Hg POC Sodium (135-144) mmol/L Sodium 133 L (136-145) mmol/L POC Potassium (3.3-5.0) mmol/L Potassium (3.5-5.1) mmol/L POC Chloride (101-112) mmol/L Chloride 103 (98-107) mmol/L Carbon Dioxide 18 L (21-32) mmol/L POC Total CO2 (24-31) mmol/L Anion Gap 12 H (3-11) POC Anion Gap (16-25) mmol/L POC BUN (7-18) mg/dl BUN 14 (6-23) mg/dl Creatinine 1.07 (0.6-1.2) mg/dl POC Creatinine (0.6-1.3) mg/dl Est Cr Clr Drug Dosing 55.2 ml/min Est GFR ( Amer) 64.4 ml/min Est GFR (Non-Af Amer) 55.6 ml/min BUN/Creatinine Ratio 13.1 (10-20) Glucose 93 (70-99(Fasting)) mg/dl POC Glucose (other) (70-99) mg/dl Lactate (0.4-2.0) mmol/L Calcium 8.4 L (8.5-10.1) mg/dl POC Ioniz Calcium Kar (1.12-1.32) mmol/l Magnesium 1.8 (1.7-2.4) mg/dl Total Bilirubin 0.2 (0.2-1.0) mg/dl AST (13-39) U/L ALT 13 (7-52) U/L Alkaline Phosphatase 64 (34-104) U/L Ammonia (18-72) umol/L Troponin I < 0.03 (0-0.04) ng/ml Total Protein 7.5 (6.0-8.3) gm/dl Albumin 4.3 (3.4-5.0) gm/dl Globulin 3.2 (2.5-4.0) gm/dl Albumin/Globulin Ratio 1.3 (0.9-2) Lipase 41 (11-82) U/L Procalcitonin < 0.05 (0-0.5) ng/ml Urine Color Urine Appearance (Clear) Urine pH (4.5-7.5) Ur Specific [place] (1.000-1.030) Urine Protein (Negative) Urine Glucose (UA) (Negative) Urine Ketones (Negative) Urine Blood (Negative) Urine Nitrite (Negative) Urine Bilirubin (Negative) Urine Urobilinogen (Negative) Ur Leukocyte Esterase (Negative) Salicylates (3.0-30) mg/dl Urine Opiates Screen (Neg) Ur Methadone, Qual (Neg) Acetaminophen (10-30) ug/ml Urine Barbiturates (Neg) Ur Phencyclidine (PCP) (Neg) U Amphetamin/Meth Scrn (Neg) MDMA (Ecstasy) Screen (Neg) U Benzodiazepines Scrn (Neg) Ur Cocaine Metabolite (Neg) U Marijuana (THC) Screen (Neg) Ethyl Alcohol mg/dL (<10.0) mg/dl Influ A Molecular Assay (Negative) Influ B Molecular Assay (Negative) SARS-CoV-2, RNA, NAAT (NEGATIVE) 11/21/21 11/21/21 11/21/21 Range/Units 16:05 16:05 16:05 WBC (4.8-10.8) K/uL RBC (4.2-5.4) M/uL Hgb (12.0-16.0) g/dL POC Hgb (12.0-16.0) g/dl Hct (37-47) % POC Hct (37-47) % MCV (80-100) fL MCH (25-34) pg MCHC (32-36) g/dL RDW Std Deviation (36.4-46.3) fL RDW Coeff of [place] (11.5-14.5) % Plt Count (130-400) K/uL MPV (7.4-10.4) fL Immature Gran % (Auto) % Neut % (Auto) % Lymph % (Auto) % [place] % (Auto) % Eos % (Auto) % Baso % (Auto) % Neut # (Auto) (1.4-6.5) K/uL Lymph # (Auto) (1.2-3.4) K/uL [place] # (Auto) (0.11-0.59) K/uL Eos # (Auto) (0-0.5) K/uL Baso # (Auto) (0-0.2) K/uL Immature Gran # (Auto) (0.00-0.02) K/uL PT INR APTT PTT Ratio VBG pH 7.38 (7.36-7.41) VBG pCO2 33 L (38-50) mmHg VBG pO2 34 mmHg VBG HCO3 19 mmol/L VBG O2 Saturation < 60.0 % VBG Base Excess -5.0 mEq/L Barometric Pressure 725.8 mm/Hg POC Sodium (135-144) mmol/L Sodium (136-145) mmol/L POC Potassium (3.3-5.0) mmol/L Potassium (3.5-5.1) mmol/L POC Chloride (101-112) mmol/L Chloride (98-107) mmol/L Carbon Dioxide (21-32) mmol/L POC Total CO2 (24-31) mmol/L Anion Gap (3-11) POC Anion Gap (16-25) mmol/L POC BUN (7-18) mg/dl BUN (6-23) mg/dl Creatinine (0.6-1.2) mg/dl POC Creatinine (0.6-1.3) mg/dl Est Cr Clr Drug Dosing ml/min Est GFR ( Amer) ml/min Est GFR (Non-Af Amer) ml/min BUN/Creatinine Ratio (10-20) Glucose (70-99(Fasting)) mg/dl POC Glucose (other) (70-99) mg/dl Lactate (0.4-2.0) mmol/L Calcium (8.5-10.1) mg/dl POC Ioniz Calcium Kar (1.12-1.32) mmol/l Magnesium (1.7-2.4) mg/dl Total Bilirubin (0.2-1.0) mg/dl AST (13-39) U/L ALT (7-52) U/L Alkaline Phosphatase (34-104) U/L Ammonia (18-72) umol/L Troponin I (0-0.04) ng/ml Total Protein (6.0-8.3) gm/dl Albumin (3.4-5.0) gm/dl Globulin (2.5-4.0) gm/dl Albumin/Globulin Ratio (0.9-2) Lipase (11-82) U/L Procalcitonin (0-0.5) ng/ml Urine Color Urine Appearance (Clear) Urine pH (4.5-7.5) Ur Specific [place] (1.000-1.030) Urine Protein (Negative) Urine Glucose (UA) (Negative) Urine Ketones (Negative) Urine Blood (Negative) Urine Nitrite (Negative) Urine Bilirubin (Negative) Urine Urobilinogen (Negative) Ur Leukocyte Esterase (Negative) Salicylates 45.5 H* (3.0-30) mg/dl Urine Opiates Screen (Neg) Ur Methadone, Qual (Neg) Acetaminophen 11 (10-30) ug/ml Urine Barbiturates (Neg) Ur Phencyclidine (PCP) (Neg) U Amphetamin/Meth Scrn (Neg) MDMA (Ecstasy) Screen (Neg) U Benzodiazepines Scrn (Neg) Ur Cocaine Metabolite (Neg) U Marijuana (THC) Screen (Neg) Ethyl Alcohol mg/dL 217.4 H (<10.0) mg/dl Influ A Molecular Assay (Negative) Influ B Molecular Assay (Negative) SARS-CoV-2, RNA, NAAT (NEGATIVE) 11/21/21 11/21/21 11/21/21 Range/Units 16:36 16:36 16:41 WBC (4.8-10.8) K/uL RBC (4.2-5.4) M/uL Hgb (12.0-16.0) g/dL POC Hgb (12.0-16.0) g/dl Hct (37-47) % POC Hct (37-47) % MCV (80-100) fL MCH (25-34) pg MCHC (32-36) g/dL RDW Std Deviation (36.4-46.3) fL RDW Coeff of [place] (11.5-14.5) % Plt Count (130-400) K/uL MPV (7.4-10.4) fL Immature Gran % (Auto) % Neut % (Auto) % Lymph % (Auto) % [place] % (Auto) % Eos % (Auto) % Baso % (Auto) % Neut # (Auto) (1.4-6.5) K/uL Lymph # (Auto) (1.2-3.4) K/uL [place] # (Auto) (0.11-0.59) K/uL Eos # (Auto) (0-0.5) K/uL Baso # (Auto) (0-0.2) K/uL Immature Gran # (Auto) (0.00-0.02) K/uL PT INR APTT PTT Ratio VBG pH (7.36-7.41) VBG pCO2 (38-50) mmHg VBG pO2 mmHg VBG HCO3 mmol/L VBG O2 Saturation % VBG Base Excess mEq/L Barometric Pressure mm/Hg POC Sodium (135-144) mmol/L Sodium (136-145) mmol/L POC Potassium (3.3-5.0) mmol/L Potassium (3.5-5.1) mmol/L POC Chloride (101-112) mmol/L Chloride (98-107) mmol/L Carbon Dioxide (21-32) mmol/L POC Total CO2 (24-31) mmol/L Anion Gap (3-11) POC Anion Gap (16-25) mmol/L POC BUN (7-18) mg/dl BUN (6-23) mg/dl Creatinine (0.6-1.2) mg/dl POC Creatinine (0.6-1.3) mg/dl Est Cr Clr Drug Dosing ml/min Est GFR ( Amer) ml/min Est GFR (Non-Af Amer) ml/min BUN/Creatinine Ratio (10-20) Glucose (70-99(Fasting)) mg/dl POC Glucose (other) (70-99) mg/dl Lactate (0.4-2.0) mmol/L Calcium (8.5-10.1) mg/dl POC Ioniz Calcium Kar (1.12-1.32) mmol/l Magnesium (1.7-2.4) mg/dl Total Bilirubin (0.2-1.0) mg/dl AST (13-39) U/L ALT (7-52) U/L Alkaline Phosphatase (34-104) U/L Ammonia (18-72) umol/L Troponin I (0-0.04) ng/ml Total Protein (6.0-8.3) gm/dl Albumin (3.4-5.0) gm/dl Globulin (2.5-4.0) gm/dl Albumin/Globulin Ratio (0.9-2) Lipase (11-82) U/L Procalcitonin (0-0.5) ng/ml Urine Color Yellow Urine Appearance Clear (Clear) Urine pH 5.0 (4.5-7.5) Ur Specific [place] 1.008 (1.000-1.030) Urine Protein Negative (Negative) Urine Glucose (UA) Negative (Negative) Urine Ketones Negative (Negative) Urine Blood Negative (Negative) Urine Nitrite Negative (Negative) Urine Bilirubin Negative (Negative) Urine Urobilinogen Negative (Negative) Ur Leukocyte Esterase Negative (Negative) Salicylates (3.0-30) mg/dl Urine Opiates Screen (Neg) Ur Methadone, Qual (Neg) Acetaminophen (10-30) ug/ml Urine Barbiturates (Neg) Ur Phencyclidine (PCP) (Neg) U Amphetamin/Meth Scrn (Neg) MDMA (Ecstasy) Screen (Neg) U Benzodiazepines Scrn (Neg) Ur Cocaine Metabolite (Neg) U Marijuana (THC) Screen (Neg) Ethyl Alcohol mg/dL (<10.0) mg/dl Influ A Molecular Assay Negative (Negative) Influ B Molecular Assay Negative (Negative) SARS-CoV-2, RNA, NAAT NEGATIVE (NEGATIVE) 11/21/21 11/21/21 11/21/21 Range/Units 16:41 17:03 17:03 WBC (4.8-10.8) K/uL RBC (4.2-5.4) M/uL Hgb (12.0-16.0) g/dL POC Hgb (12.0-16.0) g/dl Hct (37-47) % POC Hct (37-47) % MCV (80-100) fL MCH (25-34) pg MCHC (32-36) g/dL RDW Std Deviation (36.4-46.3) fL RDW Coeff of [place] (11.5-14.5) % Plt Count (130-400) K/uL MPV (7.4-10.4) fL Immature Gran % (Auto) % Neut % (Auto) % Lymph % (Auto) % [place] % (Auto) % Eos % (Auto) % Baso % (Auto) % Neut # (Auto) (1.4-6.5) K/uL Lymph # (Auto) (1.2-3.4) K/uL [place] # (Auto) (0.11-0.59) K/uL Eos # (Auto) (0-0.5) K/uL Baso # (Auto) (0-0.2) K/uL Immature Gran # (Auto) (0.00-0.02) K/uL PT 13.0 H INR 1.2 H APTT 30.0 PTT Ratio 1.1 VBG pH (7.36-7.41) VBG pCO2 (38-50) mmHg VBG pO2 mmHg VBG HCO3 mmol/L VBG O2 Saturation % VBG Base Excess mEq/L Barometric Pressure mm/Hg POC Sodium (135-144) mmol/L Sodium (136-145) mmol/L POC Potassium (3.3-5.0) mmol/L Potassium 4.2 (3.5-5.1) mmol/L POC Chloride (101-112) mmol/L Chloride (98-107) mmol/L Carbon Dioxide (21-32) mmol/L POC Total CO2 (24-31) mmol/L Anion Gap (3-11) POC Anion Gap (16-25) mmol/L POC BUN (7-18) mg/dl BUN (6-23) mg/dl Creatinine (0.6-1.2) mg/dl POC Creatinine (0.6-1.3) mg/dl Est Cr Clr Drug Dosing ml/min Est GFR ( Amer) ml/min Est GFR (Non-Af Amer) ml/min BUN/Creatinine Ratio (10-20) Glucose (70-99(Fasting)) mg/dl POC Glucose (other) (70-99) mg/dl Lactate (0.4-2.0) mmol/L Calcium (8.5-10.1) mg/dl POC Ioniz Calcium Kar (1.12-1.32) mmol/l Magnesium (1.7-2.4) mg/dl Total Bilirubin (0.2-1.0) mg/dl AST 35 (13-39) U/L ALT (7-52) U/L Alkaline Phosphatase (34-104) U/L Ammonia (18-72) umol/L Troponin I (0-0.04) ng/ml Total Protein (6.0-8.3) gm/dl Albumin (3.4-5.0) gm/dl Globulin (2.5-4.0) gm/dl Albumin/Globulin Ratio (0.9-2) Lipase (11-82) U/L Procalcitonin (0-0.5) ng/ml Urine Color Urine Appearance (Clear) Urine pH (4.5-7.5) Ur Specific [place] (1.000-1.030) Urine Protein (Negative) Urine Glucose (UA) (Negative) Urine Ketones (Negative) Urine Blood (Negative) Urine Nitrite (Negative) Urine Bilirubin (Negative) Urine Urobilinogen (Negative) Ur Leukocyte Esterase (Negative) Salicylates (3.0-30) mg/dl Urine Opiates Screen Neg (Neg) Ur Methadone, Qual Neg (Neg) Acetaminophen (10-30) ug/ml Urine Barbiturates Neg (Neg) Ur Phencyclidine (PCP) Neg (Neg) U Amphetamin/Meth Scrn Neg (Neg) MDMA (Ecstasy) Screen Pos H (Neg) U Benzodiazepines Scrn Pos H (Neg) Ur Cocaine Metabolite Neg (Neg) U Marijuana (THC) Screen Neg (Neg) Ethyl Alcohol mg/dL (<10.0) mg/dl Influ A Molecular Assay (Negative) Influ B Molecular Assay (Negative) SARS-CoV-2, RNA, NAAT (NEGATIVE) 11/21/21 11/21/21 Range/Units 17:03 17:05 WBC (4.8-10.8) K/uL RBC (4.2-5.4) M/uL Hgb (12.0-16.0) g/dL POC Hgb 12.9 (12.0-16.0) g/dl Hct (37-47) % POC Hct 38 (37-47) % MCV (80-100) fL MCH (25-34) pg MCHC (32-36) g/dL RDW Std Deviation (36.4-46.3) fL RDW Coeff of [place] (11.5-14.5) % Plt Count (130-400) K/uL MPV (7.4-10.4) fL Immature Gran % (Auto) % Neut % (Auto) % Lymph % (Auto) % [place] % (Auto) % Eos % (Auto) % Baso % (Auto) % Neut # (Auto) (1.4-6.5) K/uL Lymph # (Auto) (1.2-3.4) K/uL [place] # (Auto) (0.11-0.59) K/uL Eos # (Auto) (0-0.5) K/uL Baso # (Auto) (0-0.2) K/uL Immature Gran # (Auto) (0.00-0.02) K/uL PT INR APTT PTT Ratio VBG pH (7.36-7.41) VBG pCO2 (38-50) mmHg VBG pO2 mmHg VBG HCO3 mmol/L VBG O2 Saturation % VBG Base Excess mEq/L Barometric Pressure mm/Hg POC Sodium 138 (135-144) mmol/L Sodium (136-145) mmol/L POC Potassium 4.3 (3.3-5.0) mmol/L Potassium (3.5-5.1) mmol/L POC Chloride 108 (101-112) mmol/L Chloride (98-107) mmol/L Carbon Dioxide (21-32) mmol/L POC Total CO2 20 L (24-31) mmol/L Anion Gap (3-11) POC Anion Gap 16.0 (16-25) mmol/L POC BUN 14 (7-18) mg/dl BUN (6-23) mg/dl Creatinine (0.6-1.2) mg/dl POC Creatinine 1.2 (0.6-1.3) mg/dl Est Cr Clr Drug Dosing ml/min Est GFR ( Amer) ml/min Est GFR (Non-Af Amer) ml/min BUN/Creatinine Ratio (10-20) Glucose (70-99(Fasting)) mg/dl POC Glucose (other) 93 (70-99) mg/dl Lactate (0.4-2.0) mmol/L Calcium (8.5-10.1) mg/dl POC Ioniz Calcium Kar 0.96 L (1.12-1.32) mmol/l Magnesium (1.7-2.4) mg/dl Total Bilirubin (0.2-1.0) mg/dl AST (13-39) U/L ALT (7-52) U/L Alkaline Phosphatase (34-104) U/L Ammonia 23.0 (18-72) umol/L Troponin I (0-0.04) ng/ml Total Protein (6.0-8.3) gm/dl Albumin (3.4-5.0) gm/dl Globulin (2.5-4.0) gm/dl Albumin/Globulin Ratio (0.9-2) Lipase (11-82) U/L Procalcitonin (0-0.5) ng/ml Urine Color Urine Appearance (Clear) Urine pH (4.5-7.5) Ur Specific [place] (1.000-1.030) Urine Protein (Negative) Urine Glucose (UA) (Negative) Urine Ketones (Negative) Urine Blood (Negative) Urine Nitrite (Negative) Urine Bilirubin (Negative) Urine Urobilinogen (Negative) Ur Leukocyte Esterase (Negative) Salicylates (3.0-30) mg/dl Urine Opiates Screen (Neg) Ur Methadone, Qual (Neg) Acetaminophen (10-30) ug/ml Urine Barbiturates (Neg) Ur Phencyclidine (PCP) (Neg) U Amphetamin/Meth Scrn (Neg) MDMA (Ecstasy) Screen (Neg) U Benzodiazepines Scrn (Neg) Ur Cocaine Metabolite (Neg) U Marijuana (THC) Screen (Neg) Ethyl Alcohol mg/dL (<10.0) mg/dl Influ A Molecular Assay (Negative) Influ B Molecular Assay (Negative) SARS-CoV-2, RNA, NAAT (NEGATIVE) Imaging Data Radiologist's Impression: Chest X-Ray 11/21/21 15:33 XR chest 1V portable CLINICAL HISTORY: SEPSIS TECHNIQUE: Single frontal radiograph of the chest was obtained. Comparison: Comparison is made to chest one view 06/24/2021 FINDINGS: No lines and tubes are seen. The cardiomediastinal silhouette is normal. The lungs are clear. No evidence of pleural effusion or pneumothorax. IMPRESSION: No acute chest disease. ACT 112: Negative or not required by law. Electronically signed by: Jay Hernandez M.D. 11/21/2021 4:[address] 11/21/21 15:34 CT cervical spine wo con CLINICAL HISTORY: ams TECHNIQUE: Multidetector row helical CT of the cervical spine was performed without administration of intravenous contrast. Coronal and sagittal reforma tions were obtained. Automated dose lowering techniques and/or adjustment according to patient size were utilized for this exam. Comparison: Comparison is made to CT cervical spine 01/17/2020 FINDINGS: Anterior cervical fixation hardware is seen. Degenerative changes are seen in the visualized spine. The alignment is normal. Soft tissues are unremarkable. IMPRESSION: No evidence of acute bony injury. ACT 112: Negative or not required by law. Electronically signed by: Jay Hernandez M.D. 11/21/2021 4:[address] 11/21/21 15:34 CT head/brain wo con CLINICAL HISTORY: ams Technique: Contiguous axial CT images of the head were acquired from the base of the skull to the vertex without intravenous contrast administration. Images were viewed in brain, subdural and bone windows. Automated dose lowering techniques and/or adjustment according to patient size were utilized for this exam. Comparison: Comparison is made to CT head 06/24/2021 Findings: Areas of decreased attenuation are present in the periventricular and subcortical white matter bilaterally consistent with small vessel ischemic disease. Generalized cerebral atrophy with commensurate enlargement of the ventricles, sulci, and cisterns is also present. There is no acute intracranial hemorrhage or evidence of acute territorial infarction. No shift of the midline structures, mass effect, or extra-axial abnormalities are shown. Atherosclerotic calcifications are present in the intracranial segments of the internal carotid arteries. Imaged portions of the paranasal sinuses and mastoid air cells are clear. The orbits appear normal. Postcraniotomy changes are seen in the right calvarium. Impression: No acute intracranial hemorrhage, no evidence of acute territorial infarction or other acute intracranial disease process. ACT 112: Negative or not required by law. Electronically signed by: Jay Hernandez M.D. 11/21/2021 4:28 PM ECG Data Indication: + altered mental status Rate (beats per minute): 82 Rhythm: + normal sinus ECG Intervals/blocks: + First degree AV block, + Normal QRS and + Normal QT-c ECG ST segments: + Normal ST segments MDM Narrative 1533: The patient was evaluated in room B3. A complete history and physical exam was performed Cardiac monitoring: An order was placed for continuous cardiac monitoring. The monitor shows a rate of 80 with sinus rhythm 1702: Vital signs stable. Labs show leukopenia of 2.7. Patient has chronic leukopenia. Hemoglobin 11.9. Platelet count 181. INR 1.2 APTT 30. VBG shows venous pH of 7.38 venous PCO2 of 33 venous PO2 of 34 and bicarb of 19. Sodium 133. Here potassium hemolyzed however an i-STAT showed a potassium of 4.3. Chloride 103 CO2 18 anion gap 12. BUN 14 creatinine 1.07. Lactic acid within normal limits. Troponin negative. Pro-Kelvin negative. Patient salicylate level came back elevated at 45.5 and Tylenol level of 11. I spoke with the patient and patient's partner at bedside there is no acute ingestion or intention for self-harm. The partner states that the patient takes aspirin Tylenol Motrin [id number] for her chronic pain. Patient reports she last took 2 aspirin at 430 this morning. Partner states she is not sure if this is accurate as the patient usually takes 3-4 aspirin at a time. I did discuss the case with poison control Negar. She recommends treating for salicylate toxicity. She recommends 3 A of bicarb to begin with. She then recommend starting a bicarb drip of D5W with 150 mEq of bicarb with 40 of KCl at double maintenance fluids. This was to be started at 200 cc/h. She recommends titrating this bicarb drip to a venous pH of 7.5-7.55. She recommends trending salicylates, VBG, and potassium every 2 hours. She states the bicarb drip can be stopped when the salicylate levels less than 30. She states that the salicylate level should be checked for 2 more times every 2 hours after the bic arb drip is stopped to make sure there is no rebound salicylate level. She also recommends starting the patient on NAC therapy as patient's Tylenol level is greater than 10. NAC therapy was ordered as well as the bicarb at the recommendations of the Poison Control Center. 1729: [facility] spoke with Marleen who states to admit to Dr. Hurd. ICU has been contacted also. 1733: Spoke with Dr. Liang who accept the patient to the ICU. 1802: [facility] that the [facility] has been discharged from [facility]. Patient [facility]. Impression & Plan Poisoning by salicylate, Tylenol toxicity Discharge Plan Visit Data Chief Complaint: Confusion Stated Complaint: SEEING THINGS, CONFUSION, NOT ACTING RIGHT ED Provider: Chris Hayes Discharge Problem: Poisoning by salicylate, Tylenol toxicity Patient Disposition: Admitted As Inpatient Forms Stand Alone Forms: My [facility] Prescriptions Prescriptions: No Action triamcinolone acetonide 0.1 % cream 1 applic TOPICAL BID PRN (Reason: BREAKOUTS) RF: 0 vitamin B complex Tablet 1 tab PO QAM RF: 0 metoprolol succinate 25 mg tablet extended release 24 hr 25 mg PO DAILY RF: 0 celecoxib 200 mg capsule 200 mg PO DAILY RF: 0 aspirin 325 mg Tablet 325 mg PO DIRECTED PRN (Reason: Pain) RF: 0 rizatriptan 10 mg tablet,disintegrating 10 mg PO DIRECTED MDD 3 DOSES/24 HOURS PRN (Reason: Migraine Headache) RF: 0 omeprazole 20 mg capsule,delayed release(DR/EC) 25 mg PO DAILY RF: 0 hydroxyzine HCl 10 mg tablet 10 mg PO TID PRN (Reason: Anxiety) RF: 0 duloxetine 60 mg capsule,delayed release(DR/EC) 60 mg PO DAILY RF: 0 ibuprofen 200 mg Tablet 400 mg PO Q6H PRN (Reason: Pain) RF: 0 folic acid 1 mg Tablet 1 mg PO QAM Qty: 30 RF: 0 thiamine HCl (vitamin B1) [Vitamin B-1] 100 mg Tablet 100 mg PO QAM Qty: 30 RF: 0 Referrals Referrals: Dorothy Valdes CRNP [Primary Care Provider] - Discharge Problem: Poisoning by salicylate Qualifiers: Encounter type: initial encounter Injury intent: accidental or unintentional Qualified Code(s): T39.091A - Poisoning by salicylates, accidental (uni ntentional), initial encounter Tylenol toxicity Qualifiers: Encounter type: initial encounter Injury intent: accidental or unintentional Qualified Code(s): T39.1X1A - Poisoning by 4-Aminophenol derivatives, accidental (unintentional), initial encounter
[2021-11-21 16:50] LABS: Troponin I < 0.03 ng/ml (0-0.04)
[2021-11-21 16:54] LABS: Salicylate 45.5 mg/dl (3.0-30)
[2021-11-21 16:55] LABS: Alanine Aminotransferase 13 U/L (7-52); Albumin Globulin Ratio 1.3 (0.9-2); Albumin Level 4.3 gm/dl (3.4-5.0); Alkaline Phosphatase 64 U/L (34-104); Anion Gap 12 (3-11); BUN Creatinine Ratio 13.1 (10-20); Bilirubin,Total 0.2 mg/dl (0.2-1.0); Blood Urea Nitrogen 14 mg/dl (6-23); Calcium 8.4 mg/dl (8.5-10.1); Carbon Dioxide 18 mmol/L (21-32); Chloride 103 mmol/L (98-107); Creatinine Clr Calc Pharmacy 55.2 ml/min; Est GFR (African American) 64.4 ml/min; Est GFR (Non-African American) 55.6 ml/min; Globulin 3.2 gm/dl (2.5-4.0); Glucose 93 mg/dl (70-99(Fasting)); Lipase 41 U/L (11-82); Magnesium 1.8 mg/dl (1.7-2.4); Sodium 133 mmol/L (136-145); Total Protein 7.5 gm/dl (6.0-8.3)
[2021-11-21 17:07] LABS: Appearance Urine Clear (Clear); Bilirubin Urine Negative (Negative); Blood Urine Negative (Negative); Color Urine Yellow; Glucose Urine UA Negative (Negative); Ketones Urine Negative (Negative); Leukocyte Esterase Urine Negative (Negative); Nitrite Urine Negative (Negative); Protein Urine Negative (Negative); Specific Gravity Urine 1.008 (1.000-1.030); Urobilinogen Urine Negative (Negative)
[2021-11-21] MEDS ORDERED: DEXTROSE 5% IV ONE ×4 (17:11→22:00)
[2021-11-21] MEDS ORDERED: ACETYLCYSTEINE IV ONE ×4 (17:11→22:00)
[2021-11-21] MEDS ORDERED: SODIUM BICARB 8.4% INJ 50 MEQ/50 ML SYR IV STA (17:15)
[2021-11-21 17:22] LABS: INR 1.2 (0.9-1.1); Partial Thromboplastin Ratio 1.1
[2021-11-21] MEDS ORDERED: SODIUM BICARBONATE 8.4% 150 MEQ, POTASSIUM CHLORIDE 40 MEQ in DEXTROSE 5% 1,000 ML IV SCH (17:30)
[2021-11-21 17:34] LABS: Potassium 4.2 mmol/L (3.5-5.1)
[2021-11-21 17:36] LABS: Influenza A virus by PCR Negative (Negative); Influenza B virus by PCR Negative (Negative)
[2021-11-21 18:08] LABS: iSTAT Creatinine 1.2 mg/dl (0.6-1.3); iSTAT Hemoglobin 12.9 g/dl (12.0-16.0); iSTAT Ionized Calcium 0.96 mmol/l (1.12-1.32); iSTAT Potassium 4.3 mmol/L (3.3-5.0)
[2021-11-21 18:21] LABS: Amphetamines+Metham, Urine Neg (Neg); Barbiturates, Urine Neg (Neg); Benzodiazepine, Urine Pos (Neg); Cocaine, Urine Neg (Neg); MDMA (Ecstacy), Urine Pos (Neg); Methadone, Urine Neg (Neg); Opiate, Urine Neg (Neg); Phencyclidine, Urine Neg (Neg)
--- NOTE | 2021-11-21 18:26 | Critical Care Consultation ---
Date of Consultation November 21, 2021 Assessment & Plan (1) Leukopenia: (2) Anemia: (3) Hypocalcemia: (4) S/P cervical spinal fusion: (5) History of onel hole surgery: (6) History of arthroscopic procedure on shoulder: (7) History of carpal tunnel surgery: (8) History of tobacco abuse: (9) Alcoholism: (10) Hyponatremia: (11) Chronic pain disorder: Reason Critically Ill: Elevated salicylate level acute alcohol intoxication PLAN: Neuro: Chronic pain disorder -continue current medication regimen - referral to pain management as out patient Acute alcohol intoxication Alcohol dependency -Patient not interested in discontinuing alcohol use at this time drinks - 12-15 beers daily -1 beer every 2 hours per patient request Elevated salicylate level -Will recheck in 2 to 4 hours -Poison control advocating for alkalinization, patient does not have acidosis, is not tachypneic, low threshold to discontinue all treatments if salicylate level downtrending Tylenol level detectable -We will repeat in 4 to 6 hours -I do not anticipate that this is a toxic level ingestion Possible accidental salicylate overdose -Repeat labs Depression -Multifactorial -Likely cause of MDMA positivity on UDS -Mental health consult: Routine Resp: History tobacco dependency CV: History nonischemic cardiomyopathy -Suspect alcohol use -Continue metoprolol Fluids/Renal: Hyponatremia: Mild Hypocalcemia Elevated anion gap -Multivitamin, received normal saline in emergency department GI/Nutrition: Regular Diet Heme: Anemia Leukopenia -most likely secondary to alcohol use DVT prophylaxis: Lovenox daily until ambulatory Endocrine: ICU hyperglycemia protocol - TSH with reflex in AM Vascular access: PIV Code Status: Full Disposition: Discussed with patient and partner, patient is willing to come into the hospital for further trending of labs. She is not actively homicidal or suicidal and desires to be discharged home in the morning. Again she is not desiring to reduce or stop her alcohol consumption. I discussed limitations of forcing treatment on people who have capacity with patient's partner, she voiced her understanding that even with her alcohol on board the patient has insight and understands risks benefits is able to verbalize thought processes and has capacity at the present. History of Present Illness Reason for Consultation: Possible accidental salicylate overdose Requesting Physician: Otis Hayes Attending Physician: Jose Prieto History of Present Illness Patient is a 61-year-old female who has a significant past medical history for alcohol dependency, traumatic brain injury: Subdural hematoma status post craniotomy: 2010, chronic pain, status post cervical spine fusion, history of alcoholic cardiomyopathy, hepatitis C (per prior records). Patient arrived via the partner's personal vehicle. Her partner was concerned about altered mental status as she was reportedly having visual hallucinations of seeing things in their yard, partner was also concerned about the patient's depression but there have not been out word statements of wanting to self-harm or hurt others, and the partner is also concerned about chronic alcohol consumption. Patient's partner contacted the primary care provider who they have recently established with and were advised to seek further evaluation in the emergency department. In the emergency department labs were obtained patient is reportedly taking nonsteroidal anti-inflammatory medication for chronic pain, patient's partner reports that she can take 3 to 4 pills at a time, the patient reports that she is not taking the pain medication with intent to harm herself however is not clear of the prescribed dosing intervals. Patient denies taking Tylenol, admits to frequent alcohol use, admits to prior history of seizures, at this time she is not interested in decreasing or discontinuing her alcohol use. The patient is hoping to have some form of improved pain relief, there is no change in severity location duration, this pain is most localizing to the upper thoracic spine, she has no weakness numbness tingling in her upper arms or lower legs. She denies fevers. When asked if she wants to harm herself or others she denies, she admits to having firearms however these are appropriately stored. Patient admits to recently consuming alcohol. She does not feel that the Cymbalta which she is been on for pain and depression are improving either. The emergency department provider contacted poison control, there is a possibility that she could have ingested more salicylates and could be at risk for salicylate intoxication. At this point they are also treating a possible Tylenol intoxication. Allergies Allergy/AdvReac Type Severity Reaction Status Date / Time gabapentin AdvReac Severe Confusion Verified 11/21/21 16:47 acetaminophen [From Tylenol] AdvReac Unknown CONTRAINDICATED Verified 11/21/21 16:47 DUE TO LIVER ISSUES ibuprofen AdvReac Unknown CONTRAINDICATED Verified 11/21/21 16:47 DUE TO LIVER ISSUES Home Medications Medication Instructions Recorded Confirmed Type triamcinolone acetonide 0.1 % 1 applic TOPICAL BID PRN 02/03/20 04/06/22 History topical cream vitamin B complex 1 tab PO QAM 11/25/20 11/21/21 History ibuprofen 200 mg tablet 400 mg PO Q6H PRN 06/24/21 11/21/21 History folic acid 1 mg tablet 1 mg PO QAM #30 tab 06/28/21 11/21/21 Rx thiamine HCl (vitamin B1) 100 mg 100 mg PO QAM #30 tab 06/28/21 11/21/21 Rx tablet (Vitamin B-1) aspirin 325 mg tablet 325 mg PO DIRECTED PRN 11/21/21 11/21/21 History celecoxib 200 mg capsule 200 mg PO DAILY 11/21/21 11/21/21 History duloxetine 60 mg capsule,delayed 60 mg PO DAILY 11/21/21 11/21/21 History release hydroxyzine HCl 10 mg tablet 10 mg PO TID PRN 11/21/21 11/21/21 History metoprolol succinate 25 mg 25 mg PO DAILY 11/21/21 11/21/21 History tablet,extended release 24 hr omeprazole 20 mg capsule,delayed 25 mg PO DAILY 11/21/21 11/21/21 History release rizatriptan 10 mg disintegrating 10 mg PO DIRECTED PRN MDD 3 11/21/21 11/21/21 History tablet DOSES/24 HOURS Patient History Medical History (Updated 11/21/21 @ 18:44 by Bryn Hurley DO) Alcoholism Chronic hyponatremia Chronic pancreatitis COPD (chronic obstructive pulmonary disease) Displacement 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 (08/22/11) History of craniotomy Due to subdural hematoma from fall History of tobacco abuse Nonischemic cardiomyopathy Seizure disorder (05/16/12) Severe pulmonary arterial systolic hypertension Uterine leiomyoma (07/18/11) Surgical History History of arthroscopic procedure on shoulder History of onel hole surgery History of carpal tunnel surgery History of cholecystectomy History of hysterectomy S/P cervical spinal fusion Family History Mother Hypertension Social History Smoking Status: Never smoker Tobacco Type: Cigarettes Second Hand Exposure: No; Hx Alcohol Use: Yes Alcohol type: beer Alcohol Intake Frequency Comment: 5 beers/day Hx Substance Use: No (pt stated no but then stated "I take Valium for anxiety") Preferred Language: Malawian Communication Ability: Effective Senior Administrative Associate Required: No Beliefs That Will Affect Care: None marital status: Single Current Living Situation: Family Current Living Situation Comment: pt did not answer the question clearly How many Children do You have: 0 Feels Safe at Home: Yes Assistive Devices: Glasses Review of Systems Review of Systems: Denies chest pain shortness of breath. As per the HPI otherwise a 10 point review of systems been reviewed and is otherwise negative Physical Exam Physical Exam: General: Alert. nontoxic. Skin: Warm, dry, Head: Atraumatic Ears, nose, mouth and throat: airway patent Cardiovascular: Normal peripheral perfusion Respiratory: no respiratory distress Gastrointestinal: Non distended Musculoskeletal: No deformity, 5 out of 5 strength in upper and lower extremities Neuro: No gross lateralizing signs Psych: Appropriate coherent, not tangential, exhibits insight into diagnoses, current treatment plans, denies visual or auditory hallucinations Results & Data Results & Data ([facility]) Vital Signs (Past 12 Hours) Vital Signs Temp Pulse Resp BP Pulse Ox 11/21/21 17:11 97 11/21/21 17:10 97 11/21/21 17:09 85 20 104/58 L 11/21/21 16:54 97 11/21/21 15:21 36.4 C L 82 18 91/59 L 100 Critical Care Results & Data Vital Signs (Past 12 Hours) Vital Signs Temp Pulse Resp BP Pulse Ox 11/21/21 18:31 91 H 20 116/70 97 11/21/21 17:11 97 11/21/21 17:10 97 11/21/21 17:09 85 20 104/58 L 11/21/21 16:54 97 11/21/21 15:21 36.4 C L 82 18 91/59 L 100 Lab & Micro Results (Past 24 Hours) RBC 3.79 M/uL (4.2-5.4) L 11/21/21 WBC 2.70 K/uL (4.8-10.8) L 11/21/21 Hgb 11.9 g/dL (12.0-16.0) L 11/21/21 Hct 34.9 % (37-47) L 11/21/21 MCV 92.1 fL (80-100) 11/21/21 MCH 31.4 pg (25-34) 11/21/21 MCHC 34.1 g/dL (32-36) 11/21/21 RDW Standard Deviation 55.1 fL (36.4-46.3) H 11/21/21 RDW Coefficient of Variation 16.3 % (11.5-14.5) H 11/21/21 Plt Count 181 K/uL (130-400) 11/21/21 MPV 8.5 fL (7.4-10.4) 11/21/21 Neutrophils (%) (Auto) 44.7 % 11/21/21 Lymphocytes (%) (Auto) 44.1 % 11/21/21 Monocytes # (Auto) 0.19 K/uL (0.11-0.59) 11/21/21 Eosinophils # (Auto) 0.05 K/uL (0-0.5) 11/21/21 Immature Granulocyte % (Auto) 0.4 % 11/21/21 Neutrophils # (Auto) 1.21 K/uL (1.4-6.5) L 11/21/21 Lymphocytes # (Auto) 1.19 K/uL (1.2-3.4) L 11/21/21 Monocytes # (Auto) 0.19 K/uL (0.11-0.59) 11/21/21 Eosinophils # (Auto) 0.05 K/uL (0-0.5) 11/21/21 Basophils # (Auto) 0.05 K/uL (0-0.2) 11/21/21 Immature Granulocyte # (Auto) 0.01 K/uL (0.00-0.02) 11/21/21 2 Na 133 mmol/L (136-145) L 11/21/21 K 4.2 mmol/L (3.5-5.1) 11/21/21 Cl 103 mmol/L (98-107) 11/21/21 CO2 18 mmol/L (21-32) L 11/21/21 Anion Gap 12 (3-11) H 11/21/21 BUN 14 mg/dl (6-23) 11/21/21 Creatinine 1.07 mg/dl (0.6-1.2) 11/21/21 Estimated GFR ( Amer) 64.4 ml/min 11/21/21 Estimated GFR (Non-Af Amer) 55.6 ml/min 11/21/21 BUN/Creatinine Ratio 13.1 (10-20) 11/21/21 Glu 93 mg/dl (70-99(Fasting)) 11/21/21 Ca 8.4 mg/dl (8.5-10.1) L 11/21/21 Total Bilirubin 0.2 mg/dl (0.2-1.0) 11/21/21 AST 35 U/L (13-39) 11/21/21 ALT 13 U/L (7-52) 11/21/21 Alkaline Phosphatase 64 U/L (34-104) 11/21/21 TP 7.5 gm/dl (6.0-8.3) 11/21/21 Albumin 4.3 gm/dl (3.4-5.0) 11/21/21 Globulin 3.2 gm/dl (2.5-4.0) 11/21/21 Albumin/Globulin Ratio 1.3 (0.9-2) 11/21/21 Mg 1.8 mg/dl (1.7-2.4) 11/21/21 16:05 11/21/21 Calcium Level 8.4 mg/dl (8.5-10.1) L 11/21/21 16:05 11/21/21 Prothromb Time International Ratio 1.2 (0.9-1.1) H 11/21/21 17:03 11/21/21 Venous Blood pH 7.38 (7.36-7.41) 11/21/21 16:05 11/21/21 Venous Blood Partial Pressure CO2 33 mmHg (38-50) L 11/21/21 16:05 11/21/21 Venous Blood Partial Pressure O2 34 mmHg 11/21/21 16:05 11/21/21 Venous Blood HCO3 19 mmol/L 11/21/21 16:05 11/21/21 Venous Blood Base Excess -5.0 mEq/L 11/21/21 16:05 11/21/21 Venous Blood Oxygen Saturation < 60.0 % 11/21/21 16:05 11/21/21 Blood Gas Barometric Pressure 725.8 mm/Hg 11/21/21 16:05 11/21/21 Blood Gas Barometric Pressure 725.8 mm/Hg 11/21/21 16:05 11/21/21 Diagnostic Findings (Past 24 Hours) Chest X-Ray 11/21/21 15:33 XR chest 1V portable CLINICAL HISTORY: SEPSIS TECHNIQUE: Single frontal radiograph of the chest was obtained. Comparison: Comparison is made to chest one view 06/24/2021 FINDINGS: No lines and tubes are seen. The cardiomediastinal silhouette is normal. The lungs are clear. No evidence of pleural effusion or pneumothorax. IMPRESSION: No acute chest disease. ACT 112: Negative or not required by law. Electronically signed by: Jay Hernandez M.D. 11/21/2021 4:[address] 11/21/21 15:34 CT cervical spine wo con CLINICAL HISTORY: ams TECHNIQUE: Multidetector row helical CT of the cervical spine was performed without administration of intravenous contrast. Coronal and sagittal reformations were obtained. Automated dose lowering techniques and/or adjustment according to patient size were utilized for this exam. Comparison: Comparison is made to CT cervical spine 01/17/2020 FINDINGS: Anterior cervical fixation hardware is seen. Degenerative changes are seen in the visualized spine. The alignment is normal. Soft tissues are unremarkable. IMPRESSION: No evidence of acute bony injury. ACT 112: Negative or not required by law. Electronically signed by: Jay Hernandez M.D. 11/21/2021 4:[address] 11/21/21 15:34 CT head/brain wo con CLINICAL HISTORY: ams Technique: Contiguous axial CT images of the head were acquired from the base of the skull to the vertex without intravenous contrast administration. Images were viewed in brain, subdural and bone windows. Automated dose lowering techniques and/or adjustment according to patient size were utilized for this exam. Comparison: Comparison is made to CT head 06/24/2021 Findings: Areas of decreased attenuation are present in the periventricular and subcortical white matter bilaterally consistent with small vessel ischemic disease. Generalized cerebral atrophy with commensurate enlargement of the ventricles, sulci, and cisterns is also present. There is no acute intracranial hemorrhage or evidence of acute territorial infarction. No shift of the midline structures, mass effect, or extra-axial abnormalities are shown. Atherosclerotic calcifications are present in the intracranial segments of the internal carotid arteries. Imaged portions of the paranasal sinuses and mastoid air cells are clear. The orbits appear normal. Postcraniotomy changes are seen in the right calvarium. Impression: No acute intracranial hemorrhage, no evidence of acute territorial infarction or other acute intracranial disease process. ACT 112: Negative or not required by law. Electronically signed by: Jay Hernandez M.D. 11/21/2021 4:28 PM I & O Totals 24 Hours 11/20/21 11/21/21 11/22/21 06:59 06:59 06:59 Intake Total 30 / 30 Output Total 350 / 350 Balance -320 / -320 Cumulative 11/21/21 15:19 thru 11/21/21 17:09 Intake Total 30 Output Total 350 Balance -320 RT Ventilator Mngmt (Last Documented) Ventilator Ordered Settings Respiratory Rate 20 11/21/21 18:31 Ventilator - PT Measurements Respiratory Rate 20 Coding Level of Care Code 22644 Office/OBS Consult Lvl 5 Diagnoses Leukopenia D72.819 Anemia D64.9 Hypocalcemia E83.51 S/P cervical spinal fusion Z98.1 History of onel hole surgery Z98.890 History of arthroscopic procedure on shoulder Z98.890 History of carpal tunnel surgery Z98.890 History of tobacco abuse Z87.891 Alcoholism F10.20 Hyponatremia E87.1 Chronic pain disorder G89.4
--- NOTE | 2021-11-21 18:33 | History & Physical Report ---
Date of Service November 21, 2021 Assessment & Plan (1) Toxic encephalopathy: Plan: This is a 61-year-old female with a history of alcohol use disorder, COPD, pulmonary artery hypertension, alcoholic cardiomyopathy, chronic pancreatitis, seizure disorder, chronic hyponatremia, HCV s/p treatment, past tobacco abuse who presents to [facility] at the recommendation of her partner for increasing confusion, subsequently found to have elevated serum EtOH concentration and salicylate level. Toxic Encephalopathy / Reported Hallucinations Partner reporting about a weeks worth of abnormal behavior and altered mentation Setting of significant alcohol history appreciated; patient reportedly drinks up to 15 beers a day, including 6 on the day of admission Work-up as follows: Persistent leukopenia and anemia noted Normal venous pH, very mildly bumped anion gap (12) and decreased bicarb (18) Serum alcohol level elevated to 240 on admission Salicylate level detected 245 on admission Urine drug screen demonstrating benzodiazepine and methamphetamine detection (on Cymbalta) CT of the head and neck without acute pathology Suspect current presentation is secondary to alcohol intoxication as well as possibly salicylate ingestion. Possible that other ingestants - e.g., amphetamines - may be playing a role too, however patient denying use. Careful monitoring in ICU while salicylate and EtOH toxicity are both managed (2) Poisoning by salicylate: Plan: Patient only reports consuming 4 aspirin, however on arrival salicylate level found to be 45 Received 3 A of bicarb in the ED Continue D5+NaHCO3+KCl @ 200 cc an hour until salicylate level under 30 Check salicylate level q2h x 2 -- can consider weening above therapy pending rechecks Poison control also recommended initiation of NAC therapy empirically until Tylenol toxicity is ruled-out -- recheck [APAP] in 2-4 hours (3) COPD (chronic obstructive pulmonary disease): Plan: Chronic and stable. No acute needs at this time. (4) Alcoholism: Plan: Significant history of alcoholism noted. Reportedly drinks up to 15 beers a day, including 6 on the day of admission. EtOH level on arrival was approximately 240 Patient is a high risk for alcohol withdrawal; no reported history of alcoholic hallucinosis or withdrawal seizures Monitor in ICU Patient uninterested in cessation at this time, continue discussions to her admission (5) Hyponatremia: Plan: Noted in the setting of heavy alcohol use and suspected poor p.o. intake Monitor for now, suspect will [employer] If dropping or persistently low, can consider drawing urine studies, including osmolality, sodium, creatinine levels (6) Leukopenia: Plan: Leukopenia, Anemia Noted. Suspect secondary to chronic alcohol use. Does follow with oncology/hematology as an outpatient, Dr. Ibrahim. Trend while here (7) Chronic pain disorder: Plan: Continue chronic medication (8) Seizure disorder: Plan: Follows with [facility] neurology, not currently on any medications Reportedly has not had a seizure in many years Prior to discharge, if possible, will ensure that patient has neurology follow- up (9) Depression: Plan: Depression History noted. Patient denying any thoughts of self-harm. We will continue Cymbalta once appropriate Plan: code: full code dispo: ICU diet: NPO for now PPX: Lovenox Admission and Anticipated Discharge Date Admission Date: I personally saw and examined the patient. I verified all rachel points and agree with resident physician Dr Samson Arriaga with the following exceptions and/or additions: 61 yo female admission for altered mental state, confusion and hallucinations. No interested in quitting alcohol. Significant improvement since coming to the ER. O/E A&Ox3, Chest CTAB, HS1+2, no murmurs, Abdo SNT, 5/5 strength in all 4 extremities. No suicidal ideation. A/P Suspect alcohol intoxication. Salicylate level 245 on admission, will repeat in 4 hours to make sure downtrending, treatment as above confirmed with poison control by ER provider. Admit to ICU. Discussed case with Dr Hayes and Mei. History of Present Illness Primary Care Provider: Dorothy Valdes This is a 61-year-old female with a history of alcohol use disorder, COPD, p ulmonary artery hypertension, alcoholic cardiomyopathy, chronic pancreatitis, seizure disorder, chronic hyponatremia, HCV s/p treatment, past tobacco abuse who presents to [facility] at the recommendation of her partner for increasing confusion. Patient is unable to provide much history and is alone in the room at the time of admission. Per chart review, patient has been increasingly confused over the last week. She has reported seeing things in the yard that have not been there reportedly. She has been drinking about 15 beers per day, according to her partner. Patient denies any sort of falls, hitting her head, issues with nausea/vomiting. She does state that she took approximately 4 aspirin (approximately 3 hours apart) at 4:30 AM and 8 AM this morning for a headache. She denies taking any Tylenol because "I was told never to take it." Denies taking anything else. Denies thoughts of self harm, though does struggle with depression. She denies using any recreational drugs. She said that she drank approximately 5 beers today, and on average consumes anywhere from "6 to a lot more depending on what is going on." In the ED, patient was found to be confused, slurring her speech. Blood pressure on arrival was 90/60 with pulse of 80. Labs were significant for persistent leukopenia, anemia, elevated INR 1.2, venous blood gas with pH 7.38, PCO2 33, HCO3 19. Electrolytes demonstrating sodium 133, bicarb 18, anion gap 12, normal ammonia, normal LFTs, negative troponin, negative pro-Kelvin. Urine without abnormality. Salicylate level returned elevated at 45.5. Acetaminophen level at 11. Serum EtOH 240. Urine drug screen revealed positive results for ecstasy and benzodiazepines. Head CT and cervical neck CT negative for acute processes. She was given intravenous fluids with bicarb. Allergies Allergy/AdvReac Type Severity Reaction Status Date / Time gabapentin AdvReac Severe Confusion Verified 11/21/21 16:47 acetaminophen [From Tylenol] AdvReac Unknown CONTRAINDICATED Verified 11/21/21 16:47 DUE TO LIVER ISSUES ibuprofen AdvReac Unknown CONTRAINDICATED Verified 11/21/21 16:47 DUE TO LIVER ISSUES Home Medications Medication Instructions Recorded Confirmed Type triamcinolone acetonide 0.1 % 1 applic TOPICAL BID PRN 09/20/19 11/21/21 History topical cream vitamin B complex 1 tab PO QAM 11/25/20 11/21/21 History ibuprofen 200 mg tablet 400 mg PO Q6H PRN 06/24/21 11/21/21 History folic acid 1 mg tablet 1 mg PO QAM #30 tab 06/28/21 11/21/21 Rx thiamine HCl (vitamin B1) 100 mg 100 mg PO QAM #30 tab 06/28/21 11/21/21 Rx tablet (Vitamin B-1) celecoxib 200 mg capsule 200 mg PO DAILY 11/21/21 11/21/21 History duloxetine 60 mg capsule,delayed 60 mg PO DAILY 11/21/21 11/21/21 History release hydroxyzine HCl 10 mg tablet 10 mg PO TID PRN 11/21/21 11/21/21 History metoprolol succinate 25 mg 25 mg PO DAILY 11/21/21 11/21/21 History tablet,extended release 24 hr omeprazole 20 mg capsule,delayed 25 mg PO DAILY 11/21/21 11/21/21 History release rizatriptan 10 mg disintegrating 10 mg PO DIRECTED PRN MDD 3 11/21/21 11/21/21 History tablet DOSES/24 HOURS Past Med/Surg History Medical History (Updated 11/22/21 @ 16:29 by Sangeeta Vargas MD) Alcoholism Chronic hyponatremia Chronic pancreatitis COPD (chronic obstructive pulmonary disease) Displacement 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 (08/22/11) History of craniotomy Due to subdural hematoma from fall History of tobacco abuse Nonischemic cardiomyopathy Seizure disorder (05/16/12) Severe pulmonary arterial systolic hypertension Uterine leiomyoma (07/18/11) Surgical History History of arthroscopic procedure on shoulder History of onel hole surgery History of carpal tunnel surgery History of cholecystectomy History of hysterectomy S/P cervical spinal fusion Family History Mother Hypertension Social History Smoking Status: Former smoker Tobacco Type: Cigarettes Second Hand Exposure: No; Hx Alcohol Use: Yes Alcohol type: beer Alcohol Intake Frequency Comment: 5 beers/day Hx Substance Use: No Preferred Language: Liberian Communication Ability: Effective Hand Iii Cutter Required: No Beliefs That Will Affect Care: None marital status: Single Current Living Situation: Spouse Current Living Situation Comment: pt did not answer the question clearly How many Children do You have: 0 Feels Safe at Home: Yes Assistive Devices: None Review of Systems Review of Systems: as per HPI Physical Exam Physical Exam: General: 61-year-old female who is lying back in her hospital bed, responsive to questions. No acute distress. HEENT: NCAT. - Eyes - Sclera are white, anicteric, and without injection. PERRL. - Mouth - MMM with no tonsillar edema or exudates. Poor dentition. Cardiac: Normal rate and regular rhythm; S1 and S2 present with no murmurs, rubs, or gallops. Pulmonary: Good respiratory effort with symmetric expansion of the chest. No use of accessory muscles. Lungs were clear to auscultation bilaterally with no crackles or wheezes. Abdominal: Normoactive bowel sounds. Abdomen was soft, nondistended, and non- tender to palpation. Extremities: Upper and lower extremities are warm and well perfused. R Neuro: - Cranial Nerves: CN I, IX, and X - not assessed. II - PERRL. III/IV/ - EOMs WNL. No nystagmus. V - Facial sensation in tact in all three divisions; jaw opening WNL. VII - Patient is able to smile symmetrically and keep eyes close against resistance. IX - Patient is able to rotate head and shrug shoulders against resistance. XI - Soft palate raises equally and appropriately while say ing "ah." XII - patient is able to stick out tongue and deviate from [id number] appropriately. - Motor: UE - Finger, wrist, elbow, and shoulder strength is 5/5 bilaterally. LE - Hip, knee, and ankle strength is 5/5 bilaterally. Psych: Well-developed, well-nourished, appropriately dressed for occasion. Behavior is cooperative and appropriate. Affect is WNL. Insight is appropriate. Results & Data Results & Data ([facility]) Vital Signs (Past 12 Hours) Vital Signs Temp Pulse Resp BP Pulse Ox 11/21/21 17:11 97 11/21/21 17:10 97 11/21/21 17:09 85 20 104/58 L 11/21/21 16:54 97 11/21/21 15:21 36.4 C L 82 18 91/59 L 100 Resident Activity Tracking Resident Involvement: Resident Care Provided Care Provided: Adult Hospital Medicine (1) Poisoning by salicylate Encounter type: initial encounter Injury intent: accidental or unintentional Qualified Code(s): T39.091A - Poisoning by salicylates, accidental (unintentional), initial encounter
[2021-11-21] MEDS ORDERED: ICU PROTOCOL FOR HYPERGLYCEMIA PRN (19:38)
[2021-11-21 20:33] LABS: Salicylate 29.5 mg/dl (3.0-30)
[2021-11-22 05:15] LABS: Creatinine Clr Calc Pharmacy 69.3 ml/min; Est GFR (African American) 97.4 ml/min; Est GFR (Non-African American) 84.1 ml/min
[2021-11-22 05:16] LABS: BUN Creatinine Ratio 13.2 (10-20); Calcium 7.9 mg/dl (8.5-10.1); Potassium 3.1 mmol/L (3.5-5.1)
[2021-11-22] MEDS ORDERED: POTASSIUM CHLORIDE CRTAB 20 MEQ TABCR PO STA (05:27)
--- NOTE | 2021-11-22 07:18 | Electrocardiogram Report ---
Test Reason : Blood Pressure : / mmHG Vent. Rate : 082 BPM Atrial Rate : 082 BPM P-R Int : 216 ms QRS Dur : 082 ms QT Int : 396 ms P-R-T Axes : 050 -35 028 degrees QTc Int : 462 ms Sinus rhythm with 1st degree A-V block Left axis deviation Low voltage QRS Abnormal ECG When compared with ECG of 24-JUN-2021 18:12, AK interval has increased Criteria for Septal infarct are no longer Present Nonspecific T wave abnormality, improved in Inferior leads Nonspecific T wave abnormality no longer evident in Lateral leads Confirmed by Johnny Santiago ([id number]) on 11/22/2021 7:18:24 AM Referred By: Confirmed By:Johnny Santiago
[2021-11-22] MEDS ORDERED: PNEUMOCOCCAL Polysaccharide Vaccine 25mcg/0.5mL vial/Syr IM ONE (08:00)
[2021-11-22] MEDS ORDERED: MULTIVITAMIN TAB PO SCH (09:00)
[2021-11-22] MEDS ORDERED: METOPROLOL SUCC 25MG EXT REL TAB PO SCH (09:00)
[2021-11-22] MEDS: BEER 1 CAN PO PRN ×3 (09:31→13:38)
[2021-11-22] MEDS ORDERED: traMADol HCL 50 MG TABLET PO PRN (09:32)
[2021-11-22] MEDS ORDERED: CELECOXIB 100 MG CAP PO SCH (09:45)
--- NOTE | 2021-11-22 09:51 | Critical Care Progress Note ---
Date of Service November 22, 2021 Assessment & Plan (1) Depression: (2) Chronic pain disorder: (3) Leukopenia: (4) Alcoholism: Plan: Reason Critically Ill: Elevated salicylate level acute alcohol intoxication PLAN: Neuro: Chronic pain disorder -continue current medication regimen - referral to pain management as outpatient Acute alcohol intoxication Alcohol dependency -Patient not interested in discontinuing alcohol use at this time drinks - 12-15 beers daily -1 beer every 2 hours per patient request Elevated salicylate level: resolved Tylenol level detectable -stop mucomyst Depression -Multifactorial -Likely cause of MDMA positivity on UDS -Mental health consult: Routine - Restart duloxitine 60mg ER Resp: History tobacco dependency CV: History nonischemic cardiomyopathy -Suspect alcohol use -Continue metoprolol Fluids/Renal: Hyponatremia: resolved Hypocalcemia Elevated anion gap: resolved Hypokalemia - 20 meq POx1 GI/Nutrition: Regular Diet Heme: Anemia Leukopenia -most likely secondary to alcohol use DVT prophylaxis: Lovenox daily until ambulatory Endocrine: ICU hyperglycemia protocol - TSH with reflex in AM Vascular access: PIV Code Status: Full Disposition: Stable for downgrade out of ICU Admission and Anticipated Discharge Date Admission Date: November 21, 2021 Subjective Continued chronic pain. Feeling ok, would like to use commode. Physical Exam Physical Exam: General: Alert. nontoxic. Skin: Warm, dry, Head: Atraumatic Ears, nose, mouth and throat: airway patent Cardiovascular: Normal peripheral perfusion Respiratory: no respiratory distress Gastrointestinal: Non distended Musculoskeletal: No deformity, 5 out of 5 strength in upper and lower extremities Neuro: No gross lateralizing signs Psych: Appropriate coherent, not tangential, exhibits capacity Results & Data Results & Data ([facility]) Vital Signs (Past 12 Hours) Vital Signs Temp Pulse Resp BP Pulse Ox 11/22/21 08:58 36.8 C 11/22/21 08:00 85 18 131/75 99 11/22/21 07:00 85 15 120/70 95 11/22/21 06:00 81 12 133/75 96 11/22/21 05:01 82 13 127/73 97 11/22/21 04:00 36.5 C 88 13 128/80 96 11/22/21 03:00 85 17 129/73 97 11/22/21 02:00 84 14 138/74 95 11/22/21 01:00 84 11 L 130/71 96 11/22/21 00:46 85 11/22/21 00:00 36.6 C 87 15 137/73 96 11/21/21 23:00 88 14 123/70 94 11/21/21 22:00 86 13 124/68 94 Critical Care Results & Data Vital Signs (Past 12 Hours) Vital Signs Temp Pulse Resp BP Pulse Ox 11/22/21 08:58 36.8 C 11/22/21 08:00 85 18 131/75 99 11/22/21 07:00 85 15 120/70 95 11/22/21 06:00 81 12 133/75 96 11/22/21 05:01 82 13 127/73 97 11/22/21 04:00 36.5 C 88 13 128/80 96 11/22/21 03:00 85 17 129/73 97 11/22/21 02:00 84 14 138/74 95 11/22/21 01:00 84 11 L 130/71 96 11/22/21 00:46 85 11/22/21 00:00 36.6 C 87 15 137/73 96 11/21/21 23:00 88 14 123/70 94 Lab & Micro Results (Past 24 Hours) RBC 3.79 M/uL (4.2-5.4) L 11/21/21 WBC 2.70 K/uL (4.8-10.8) L 11/21/21 Hgb 11.9 g/dL (12.0-16.0) L 11/21/21 Hct 34.9 % (37-47) L 11/21/21 MCV 92.1 fL (80-100) 11/21/21 MCH 31.4 pg (25-34) 11/21/21 MCHC 34.1 g/dL (32-36) 11/21/21 RDW Standard Deviation 55.1 fL (36.4-46.3) H 11/21/21 RDW Coefficient of Variation 16.3 % (11.5-14.5) H 11/21/21 Plt Count 181 K/uL (130-400) 11/21/21 MPV 8.5 fL (7.4-10.4) 11/21/21 Neutrophils (%) (Auto) 44.7 % 11/21/21 Lymphocytes (%) (Auto) 44.1 % 11/21/21 Monocytes # (Auto) 0.19 K/uL (0.11-0.59) 11/21/21 Eosinophils # (Auto) 0.05 K/uL (0-0.5) 11/21/21 Immature Granulocyte % (Auto) 0.4 % 11/21/21 Neutrophils # (Auto) 1.21 K/uL (1.4-6.5) L 11/21/21 Lymphocytes # (Auto) 1.19 K/uL (1.2-3.4) L 11/21/21 Monocytes # (Auto) 0.19 K/uL (0.11-0.59) 11/21/21 Eosinophils # (Auto) 0.05 K/uL (0-0.5) 11/21/21 Basophils # (Auto) 0.05 K/uL (0-0.2) 11/21/21 Immature Granulocyte # (Auto) 0.01 K/uL (0.00-0.02) 11/21/21 Na 142 mmol/L (136-145) 11/22/21 K 3.1 mmol/L (3.5-5.1) L 11/22/21 Cl 105 mmol/L (98-107) 11/22/21 CO2 25 mmol/L (21-32) 11/22/21 Anion Gap 12 (3-11) H 11/22/21 BUN 10 mg/dl (6-23) 11/22/21 Creatinine 0.76 mg/dl (0.6-1.2) 11/22/21 Estimated GFR ( Amer) 97.4 ml/min 11/22/21 Estimated GFR (Non-Af Amer) 84.1 ml/min 11/22/21 BUN/Creatinine Ratio 13.2 (10-20) 11/22/21 Glu 106 mg/dl (70-99(Fasting)) H 11/22/21 Ca 7.9 mg/dl (8.5-10.1) L 11/22/21 Total Bilirubin 0.2 mg/dl (0.2-1.0) 11/21/21 AST 35 U/L (13-39) 11/21/21 ALT 13 U/L (7-52) 11/21/21 Alkaline Phosphatase 64 U/L (34-104) 11/21/21 TP 7.5 gm/dl (6.0-8.3) 11/21/21 Albumin 4.3 gm/dl (3.4-5.0) 11/21/21 Globulin 3.2 gm/dl (2.5-4.0) 11/21/21 Albumin/Globulin Ratio 1.3 (0.9-2) 11/21/21 Mg 1.8 mg/dl (1.7-2.4) 11/21/21 16:05 11/21/21 Calcium Level 7.9 mg/dl (8.5-10.1) L 11/22/21 04:22 11/22/21 Prothromb Time International Ratio 1.2 (0.9-1.1) H 11/21/21 17:03 11/21/21 Venous Blood pH 7.38 (7.36-7.41) 11/21/21 16:05 11/21/21 Venous Blood Partial Pressure CO2 33 mmHg (38-50) L 11/21/21 16:05 11/21/21 Venous Blood Partial Pressure O2 34 mmHg 11/21/21 16:05 11/21/21 Venous Blood HCO3 19 mmol/L 11/21/21 16:05 11/21/21 Venous Blood Base Excess -5.0 mEq/L 11/21/21 16:05 11/21/21 Venous Blood Oxygen Saturation < 60.0 % 11/21/21 16:05 11/21/21 Blood Gas Barometric Pressure 725.8 mm/Hg 11/21/21 16:05 11/21/21 Blood Gas Barometric Pressure 725.8 mm/Hg 11/21/21 16:05 11/21/21 Diagnostic Findings (Past 24 Hours) Chest X-Ray 11/21/21 15:33 XR chest 1V portable CLINICAL HISTORY: SEPSIS TECHNIQUE: Single frontal radiograph of the chest was obtained. Comparison: Comparison is made to chest one view 06/24/2021 FINDINGS: No lines and tubes are seen. The cardiomediastinal silhouette is normal. The lungs are clear. No evidence of pleural effusion or pneumothorax. IMPRESSION: No acute chest disease. ACT 112: Negative or not required by law. Electronically signed by: Jay Hernandez M.D. 11/21/2021 4:[address] 11/21/21 15:34 CT cervical spine wo con CLINICAL HISTORY: ams TECHNIQUE: Multidetector row helical CT of the cervical spine was performed without administration of intravenous contrast. Coronal and sagittal reformations were obtained. Automated dose lowering techniques and/or adjustment according to patient size were utilized for this exam. Comparison: Comparison is made to CT cervical spine 01/17/2020 FINDINGS: Anterior cervical fixation hardware is seen. Degenerative changes are seen in the visualized spine. The alignment is normal. Soft tissues are unremarkable. IMPRESSION: No evidence of acute bony injury. ACT 112: Negative or not required by law. Electronically signed by: Jay Hernandez M.D. 11/21/2021 4:[address] 11/21/21 15:34 CT head/brain wo con CLINICAL HISTORY: ams Technique: Contiguous axial CT images of the head were acquired from the base of the skull to the vertex without intravenous contrast administration. Images were viewed in brain, subdural and bone windows. Automated dose lowering techniques and/or adjustment according to patient size were utilized for this exam. Comparison: Comparison is made to CT head 06/24/2021 Findings: Areas of decreased attenuation are present in the periventricular and subcortical white matter bilaterally consistent with small vessel ischemic disease. Generalized cerebral atrophy with commensurate enlargement of the ventricles, sulci, and cisterns is also present. There is no acute intracranial hemorrhage or evidence of acute territorial infarction. No shift of the midline structures, mass effect, or extra-axial abnormalities are shown. Atherosclerotic calcifications are present in the intracranial segments of the internal carotid arteries. Imaged portions of the paranasal sinuses and mastoid air cells are clear. The orbits appear normal. Postcraniotomy changes are seen in the right calvarium. Impression: No acute intracranial hemorrhage, no evidence of acute territorial infarction or other acute intracranial disease process. ACT 112: Negative or not required by law. Electronically signed by: Jay Hernandez M.D. 11/21/2021 4:28 PM I & O Totals 24 Hours 11/21/21 11/22/21 11/23/21 06:59 06:59 06:59 Intake Total 2838.867 / 2838.867 0.003 / 0.003 Output Total 1800 / 1800 Balance 1038.867 / 1038.867 0.003 / 0.003 Cumulative 11/21/21 15:19 thru 11/22/21 09:39 Intake Total 2838.870 Output Total 1800 Balance 1038.870 RT Ventilator Mngmt (Last Documented) Ventilator Ordered Settings Respiratory Rate 18 11/22/21 08:00 Ventilator - PT Measurements Respiratory Rate 18 Coding Level of Care Code 82357 Subseq Hosp Care Lvl 2 Diagnoses Depression F32.A Chronic pain disorder G89.4 Leukopenia D72.819 Alcoholism F10.20
[2021-11-22] MEDS ORDERED: VITAMIN B COMPLEX TAB PO SCH (10:00)
[2021-11-22] MEDS ORDERED: FOLIC ACID 1 MG TAB PO SCH (10:00)
[2021-11-22] MEDS ORDERED: THIAMINE HCL 100 MG TAB PO SCH (10:00)
[2021-11-22] MEDS ORDERED: DULoxetine HCL 60 MG CAP PO SCH (10:00)
--- NOTE | 2021-11-22 13:57 | Psychiatric Consultation ---
Date of Consultation November 22, 2021 Impression / Recommendations Impression This is a 61 yo with a history of alcohol use, depression and TBI use admitted medically. Diagnostically consistent with alcohol use disorder as well as unspecified depression likely a combination of substance-induced as well as mild MDD. At this point risk of harm to self and others is slightly increased due to substance use with substance use treatment being the most significant modifiable risk factor to reduce acute and chronic risk. Acute risk is low given denial of SI and endorses only mild depression symptoms (mostly related to low energy/sleep difficulty) and with reasons for living and social support and no history of prior attempts. They do not meet criteria for inpatient psychiatric treatment at this time rather recommendation is for dual diagnosis or residential substance use treatment. They are not interested in residential treatment at this time but may be agreeable to outpatient services to help with substance use and medication assisted treatment in the future. Provided with resources should she decide to engage with therapy and encouraged to reach out. Reviewed benefit of MAT should she decide she is willing to try this in the future. (1) Depression: (2) Alcohol use disorder, moderate, dependence: -Psychiatric liason provided resources on local mental health services and substance use services and attempt to set them up with outpatient services -Patient is not an imminent danger to self or others and does not meet criteria for involuntary psychiatric commitment, safe for discharge from psych standpoint, safety planned including removing access to guns with she and her partner Mamta -Consider starting naltrexone 50mg qd for alcohol use disorder or acamprosate 333mg TID if Cr/renal ok in the future -Could transition to SSRI after tapering Cymbalta, would monitor Na+ closely given history of chronic hyponatremia, would try escitalopram 5mg qd as she has not tried this before Risk Factors Assessment : Yes Do You Have Access To A Gun?: Yes (discussed safety plan of removing access via changing combo which she agree) Health Problems: Yes Mental Health Diagnoses: Yes Substance Use Disorders: Yes Previous Attempt: No Family History of Suicide: No Previous Psychiatric Hospitalization: Yes Hopelessness: No Protective Factors Assessment Stable Relationships: Yes Supportive Family: Yes Psych History Identifying Data 61 yo woman with a history of depression, alcohol use disorder, COPD, chronic pain, chronic pancreatitis, alcohol induced cardiomyopathy and TBI (s/p subdermal hematoma at age 49) admitted medically for increasing confusion in context of excess aspirin use for pain and alcohol use. psychiatry consulted for recommendations regarding depression. Chief Complaint "I'm fine but I'll think about therapy". History of Present Illness Nury is preparing for discharge today and is joined bedside by her partner Mamta. Nury endorses periods of lower mood which she attributes to pain and arthirits limiting her ability to do some of the physical activities she enjoys and sequalae from TBI at age 49 making day to day activities more difficult. She continues to drink alcohol, about 15 beers per day, and is not interesting in stopping this. Tried acamprosate in the past, Mamta recalled, without benefit. Reviewed potential option of naltrexone in future if she decides she'd be open to MAT. Currently being tapered off Cymbalta by her PCP due to limited benefit for mood nor pain. Also takes Vistaril when needed for anxiety. Was willing to look into outpatient resources, as provided by psych liason, encouraged her to consider reaching out to [facility] for dual diagnosis therapy which she'll cons ider. States her biggest stressor is pain and understands referral has been made for pain clinic which she agrees with. She genuinely and consistently denied that excess aspirin use was due to suicide attempt but rather for pain management as lower doses were ineffective which Mamta confirms. Reviewed that they may want her to reduce her alcohol use and that this would be yet another reason to engage with therapy and consider MAT. She denies current nor recent SI, last SI was about 3 weeks ago and she denied any plan or intent at that time. No history of prior attempts. Feels safe going home. Has guns at home but agreed to let Mamta change the combination and Mamta agrees to do this when they return home this afternoon. Can speak to multiple reasons for living including Mamta, caring for neighbor's dog and things she needs to get done around her home. Scored in mild range on PHQ-9 with 8 and q9 was 0. She and Mamta denied any other questions or concerns. Further history per psych liason: "Patient awake lying in bed, appears comfortable. She was pleasant and talkative. Patient is A&Ox4, admits to poor memory x10 years after having a subdermal hematoma. She also reports frequent falls, often hitting her head. She states, "I have poor balance, people question if it's from drinking but I just have poor balance". She admits to drinking daily and was consuming a beer, per order, during our conversation. Upper extremity tremors noted. She reports a history of depression with inpatient treatment in her 20's. She reports history of SI, denies suicide attempts, denies current SI. Patient does not have outpatient psych providers, is willing to explore options, will provide mental health resource booklet and assist with referrals if interested. Patient latrice ray is prescribed Cymbalta by PCP; she believes this was to be changed to a different medication, mostly to target pain but unable to recall the name. Patient reports having chronic pain d/t a back injury acquired while working with the [employer] several years ago, as well as, arthritis. She has 3 dogs and used to enjoy running with them but now is unable to do so. She also enjoys being active outside with yard work which is becoming more difficult. Patient scored an 8 on the PHQ-9, question 9 = 0." Past Psychiatric History Outpatient Services: none Previous Psych Admissions: once In her 20s Do You Have Access To A Gun?: Yes (discussed safety plan of removing access via changing combo which she agree) History of Previous Suicide Attempt: No Past Medication Trials: seroquel, effexor, valium, remeron, zoloft Allergies Allergy/AdvReac Type Severity Reaction Status Date / Time gabapentin AdvReac Severe Confusion Verified 11/21/21 16:47 acetaminophen [From Tylenol] AdvReac Unknown CONTRAINDICATED Verified 11/21/21 16:47 DUE TO LIVER ISSUES ibuprofen AdvReac Unknown CONTRAINDICATED Verified 11/21/21 16:47 DUE TO LIVER ISSUES Home Medications Medication Instructions Recorded Confirmed Type triamcinolone acetonide 0.1 % 1 applic TOPICAL BID PRN 09/20/19 11/21/21 History topical cream vitamin B complex 1 tab PO QAM 11/25/20 11/21/21 History ibuprofen 200 mg tablet 400 mg PO Q6H PRN 06/24/21 11/21/21 History folic acid 1 mg tablet 1 mg PO QAM #30 tab 06/28/21 11/21/21 Rx thiamine HCl (vitamin B1) 100 mg 100 mg PO QAM #30 tab 06/28/21 11/21/21 Rx tablet (Vitamin B-1) celecoxib 200 mg capsule 200 mg PO DAILY 11/21/21 11/21/21 History duloxetine 60 mg capsule,delayed 60 mg PO DAILY 11/21/21 11/21/21 History release hydroxyzine HCl 10 mg tablet 10 mg PO TID PRN 11/21/21 11/21/21 History metoprolol succinate 25 mg 25 mg PO DAILY 11/21/21 11/21/21 History tablet,extended release 24 hr omeprazole 20 mg capsule,delayed 25 mg PO DAILY 11/21/21 11/21/21 History release rizatriptan 10 mg disintegrating 10 mg PO DIRECTED PRN MDD 3 11/21/21 11/21/21 History tablet DOSES/24 HOURS Substance Abuse History Extensive alcohol use with social and legal repercussions as noted in HPI Personal History Living Arrangements: Home Marital Status: Living w/ Signif. Other Beliefs That Will Affect Care: None Patient History Medical History (Updated 11/22/21 @ 16:29 by Sangeeta Vargas MD) Alcoholism Chronic hyponatremia Chronic pancreatitis COPD (chronic obstructive pulmonary disease) Displacement 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 (08/22/11) History of craniotomy Due to subdural hematoma from fall History of tobacco abuse Nonischemic cardiomyopathy Seizure disorder (05/16/12) Severe pulmonary arterial systolic hypertension Uterine leiomyoma (07/18/11) Surgical History History of arthroscopic procedure on shoulder History of onel hole surgery History of carpal tunnel surgery History of cholecystectomy History of hysterectomy S/P cervical spinal fusion Family History Mother Hypertension Social History Smoking Status: Former smoker Tobacco Type: Cigarettes Second Hand Exposure: No; Hx Alcohol Use: Yes Alcohol type: beer Alcohol Intake Frequency Comment: 5 beers/day Hx Substance Use: No Preferred Language: Hungarian Communication Ability: Effective Bander And Cellophaner Machine Required: No Beliefs That Will Affect Care: None marital status: Single Current Living Situation: Spouse Current Living Situation Comment: pt did not answer the question clearly How many Children do You have: 0 Feels Safe at Home: Yes Assistive Devices: None Physical Exam Psychiatric: Orientation: alert and oriented x 3 Apperance: appropriately dressed and appropriately groomed Eye Contact: good eye contact Motor Behavior: no abnormal motor movements Speech: normal rate/rhythm/volume of speech Affect: + constricted affect Mood: + depressed mood; no anxious mood Thought Process: goal directed thought process Thought Content: reality based without delusions Suicidal Thoughts: denies suicidal thoughts Homicidal Thoughts: denies homicidal thoughts Hallucinations: no auditory hallucinations and no visual hallucinations Cognition: recent memory grossly intact, remote memory grossly intact, attention grossly intact and language grossly intact Estimated Intelligence: consistent with education level Insight: + limited insight Judgement: + limited judgement Vital Signs (Past 24 Hours): Last Vital Signs Temp 36.7 C 11/22/21 13:45 Pulse 87 11/22/21 13:45 Resp 16 11/22/21 13:45 BP 119/55 L 11/22/21 13:45 Pulse Ox 96 11/22/21 13:45 Review of Systems All systems reviewed & are unremarkable except as noted in HPI & below Results & Data (PSY) Medications Administered Celecoxib (Celecoxib 100 Mg Cap) 100 mg PO BID [facility] Stop: 12/22/21 09:44 Last Admin: 11/22/21 10:46 Dose: 100 mg Documented by: [id number] Duloxetine HCl (Duloxetine Hcl 60 Mg Cap) 60 mg PO DAILY [facility] Stop: 12/22/21 09:59 Last Admin: 11/22/21 10:46 Dose: 60 mg Documented by: [id number] Folic Acid (Folic Acid 1 Mg Tab) 1 mg PO QAM [facility] Stop: 12/22/21 09:59 Last Admin: 11/22/21 10:46 Dose: 1 mg Documented by: [id number] Metoprolol Succinate (Metoprolol Succ 25mg Ext Rel Tab) 25 mg PO QAM [facility] Stop: 12/22/21 08:59 Last Admin: 11/22/21 08:41 Dose: 25 mg Documented by: [id number] Multivitamins (Multivitamin Tab) 1 tab PO QAM [facility] Stop: 12/22/21 08:59 Last Admin: 11/22/21 08:41 Dose: 1 tab Documented by: [id number] Non-Formulary Medication (Beer 1 Can) 1 can PO Q2H PRN PRN Reason: Notification Stop: 12/21/21 19:37 Last Admin: 11/22/21 13:38 Dose: 1 can Documented by: [id number] Admin: 04/07/22 10:51 Dose: 1 can Documented by: [id number] Admin: 11/22/21 09:31 Dose: 1 can Documented by: [id number] Thiamine HCl (Thiamine Hcl 100 Mg Tab) [facility] Stop: 12/22/21 09:59 Last Admin: 11/22/21 10:46 Dose: 100 mg Documented by: [id number] Vitamin B Complex (Vitamin B Complex Tab) 1 tab PO [facility] Stop: 12/22/21 09:59 Last Admin: 11/22/21 10:46 Dose: 1 tab Documented by: [id number] Coding Level of Care Code 46222 Inpt Consult Level 3 Diagnoses Depression F32.A Alcohol use disorder, moderate, dependence F10.20
--- NOTE | 2021-11-22 15:17 | Discharge Summary ---
Date of Service November 22, 2021 Admission HPI Per Admitting Provider This is a 61-year-old female with a history of alcohol use disorder, COPD, pulmonary artery hypertension, alcoholic cardiomyopathy, chronic pancreatitis, seizure disorder, chronic hyponatremia, HCV s/p treatment, past tobacco abuse who presents to [facility] at the recommendation of her partner for increasing confusion. Patient is unable to provide much history and is alone in the room at the time of admission. Per chart review, patient has been increasingly confused over the last week. She has reported seeing things in the yard that have not been there reportedly. She has been drinking about 15 beers per day, according to her partner. Patient denies any sort of falls, hitting her head, issues with nausea/vomiting. She does state that she took approximately 4 aspirin (approximately 3 hours apart) at 4:30 AM and 8 AM this morning for a headache. She denies taking any Tylenol because "I was told never to take it." Denies taking anything else. Denies thoughts of self harm, though does struggle with depression. She denies using any recreational drugs. She said that she drank approximately 5 beers today, and on average consumes anywhere from "6 to a lot more depending on what is going on." In the ED, patient was found to be confused, slurring her speech. Blood pressure on arrival was 90/60 with pulse of 80. Labs were significant for persistent leukopenia, anemia, elevated INR 1.2, venous blood gas with pH 7.38, PCO2 33, HCO3 19. Electrolytes demonstrating sodium 133, bicarb 18, anion gap 12, normal ammonia, normal LFTs, negative troponin, negative pro-Kelvin. Urine without abnormality. Salicylate level returned elevated at 45.5. Acetaminophen level at 11. Serum EtOH 240. Urine drug screen revealed positive results for ecstasy and benzodiazepines. Head CT and cervical neck CT negative for acute processes. She was given intravenous fluids with bicarb. Principal Diagnosis Likely alcohol intoxication with possible benzodiazepine use Discharge Exam Constitutional WD/WN, vitals as above Eyes EOM intact bilaterally; no conjunctival abnormality ENMT external ear and nose normal, oropharynx normal Mouth / Teeth: 1. No tongue fasciculations Neck trachea midline, no thyromegaly normal visual inspection Respiratory normal respiratory effort, lungs clear to auscultation no respiratory distress Cardiovascular RRR, no murmur, no edema Gastrointestinal (Abdomen) Inspection/Auscultation: abdomen normal to inspection; abdomen not distended Musculoskeletal no cyanosis or clubbing, extremities motor strength 5/5 Skin no rashes, warm and dry Neurologic moves all extremities and awake Motor/Sensory: no tremor Psychiatric Orientation: alert, oriented to person and cooperative Discharge Data Allergies Allergy/AdvReac Type Severity Reaction Status Date / Time gabapentin AdvReac Severe Confusion Verified 11/21/21 16:47 acetaminophen [From Tylenol] AdvReac Unknown CONTRAINDICATED Verified 11/21/21 16:47 DUE TO LIVER ISSUES ibuprofen AdvReac Unknown CONTRAINDICATED Verified 11/21/21 16:47 DUE TO LIVER ISSUES Consultations 11/21/21 17:57 ED Decision to Admit Stat 11/21/21 18:10 Consult Reservation Clerk Routine 11/21/21 19:54 Consult Psychiatry Routine Ordered Studies 11/21/21 15:34 CT cervical spine wo con Stat CT head/brain wo con Stat Hospital Course (1) Encephalopathy: Partner reporting about a weeks worth of abnormal behavior and altered mentation. Setting of significant alcohol history appreciated; patient reportedly drinks up to 15 beers a day, including 6 on the day of admission. Work-up as follows: Persistent leukopenia and anemia noted Normal venous pH, very mildly bumped anion gap (12) and decreased bicarb (18) Serum alcohol level elevated to 240 on admission Salicylate level detected 245 on admission Urine drug screen demonstrating benzodiazepine and methamphetamine detection (on Cymbalta) CT of the head and neck without acute pathology Suspect current presentation is secondary to alcohol intoxication as well as possibly salicylate ingestion. Possible that other ingestants - e.g., amphetamines - may be playing a role too, however patient denying use. -> On 11/22, the patient was back to her normal mental status. She was on NAC for possible Tylenol, but LFTs remained stable and this was stopped. I had an extensive conversation with the patient on what her preferred next steps would be. She reports wanting to cut back on drinking, but did not want to stop all together, did not want inpatient detox in our hospital, and did not want inpatient rehab (alcohol or physical therapy). She did express some interest in if I could prescribe any medication to help with withdrawal, but I explained my discomfort with prescribing something such as Librium when she is not set on stopping drinking all together. I did have our Nurse Navigator meet with her, offer any support we could, and arranged for PCP f/u tomorrow to discuss her drinking and make sure she was not experiencing concerning symptoms. Total Time Total Time Spent Total Time Spent (In Minutes): 35 Discharge Plan Discharge Items Patient Disposition: Home - Self-Care Reason For Visit: Confusion Discharge Diagnosis: Confusion - Likely from alcohol and possibly benzodiazepine use Activity: Resume your previous activity Non-emergency contact: Primary Care Provider Call non-emergency contact if: your symptoms worsen Follow-up/Referrals: Dorothy Valdes CRNP [Primary Care Provider] - 11/23/21 3:10 pm (Hospital follow up with primary care.) Diet: Regular Addtl Attending Provider Instructions: Ms. Rivas, Clemente were admitted to the hospital with confusion. You have reported to our providers that you drink about 5 beers per day. In addition to this, your urine drug screen was positive for benzodiazepines. I do not see any prescriptions for this type of medication, so my concern is if you are obtaining this from other avenues. In addition, you are prescribed hydroxyzine which can also cause con fusion and drowsiness. These three substances in combination can cause confusion, sedation, and probably hallucinations. While holding these medications, your confusion resolved. Luckily, your organs such as your liver, kidneys, and heart were not damaged. We had a long discussion about your drinking. You have tried rehab in the past, and did not want to return. Likewise, you did not want to stay in the hospital for alcohol detox. You felt that you could slowly scale back the drinking on your own with your partner's help. This is certainly within your rights to pursue this option. We are always here in the hospital to help out in any way. If you change your mind and would like to pursue alcohol detox, we can help you with this. If you experience withdrawal symptoms such as tremor, sweating, anxiety, hallucinations, or any other concerning symptom, please come back to the hospital. We have scheduled a follow-up appointment with your PCP tomorrow. I strongly encourage you to follow up with Ms. Valdes tomorrow to discuss how you are feeling and make sure you are doing well. Pending Studies at Discharge: No Stand-Alone Forms: [facility], Smoking Cessation Medications and DC Order Prescriptions: Continued triamcinolone acetonide 0.1 % cream 1 applic TOPICAL BID PRN (Reason: BREAKOUTS) RF: 0 vitamin B complex Tablet 1 tab PO QAM RF: 0 metoprolol succinate 25 mg tablet extended release 24 hr 25 mg PO DAILY RF: 0 celecoxib 200 mg capsule 200 mg PO DAILY RF: 0 rizatriptan 10 mg tablet,disintegrating 10 mg PO DIRECTED MDD 3 DOSES/24 HOURS PRN (Reason: Migraine Headache) RF: 0 omeprazole 20 mg capsule,delayed release(DR/EC) 25 mg PO DAILY RF: 0 hydroxyzine HCl 10 mg tablet 10 mg PO TID PRN (Reason: Anxiety) RF: 0 duloxetine 60 mg capsule,delayed release(DR/EC) 60 mg PO DAILY RF: 0 ibuprofen 200 mg Tablet 400 mg PO Q6H PRN (Reason: Pain) RF: 0 folic acid 1 mg Tablet 1 mg PO QAM Qty: 30 RF: 0 thiamine HCl (vitamin B1) [Vitamin B-1] 100 mg Tablet 100 mg PO QAM Qty: 30 RF: 0 Discontinued aspirin 325 mg Tablet 325 mg PO DIRECTED PRN (Reason: Pain) RF: 0 Discharge Orders: Discharge Order (Routine); Ordered 11/22/21 Ordered By: Ramesh Jones/Other Patient Handouts: Suicide Warning Signs What To Do, Suicide Warning Signs Recognize Admission Data Admit Date/Time: 11/21/21 18:06 Attending Provider: Ramesh Torres Admit Provider: Jose Prieto Primary Care Provider: Dorothy Valdes Other Providers: Bryn Hurley Erica K. ; Laura Guerra ; Lucia Millan ; Ramesh Torres Other Interventions: Discharge Summary Assessment (RN) Last Done: 11/22/21 13:45 Coding Level of Care Code D/C DAY MANAGEMENT >30 MINS Diagnoses Encephalopathy G93.40
[2021-11-26 11:45] LABS: 7-Aminoclonaz, Confirm NEGATIVE ng/mL (<25); Hydro-Alp Ur, GC/MS NEGATIVE ng/mL (<25); Hydroxyethylflurazepam, Conf NEGATIVE ng/mL (<50); Hydroxymidazolam Ur, GC/MS NEGATIVE ng/mL (<50); Hydroxytriazolam NEGATIVE ng/mL (<50); Lorazepam, Ur GC/MS NEGATIVE ng/mL (<50); MDA negative; MDEA negative; MDMA (Ecstasy) Urine, Confirm negative; Nordiazepam, Confirm 61 ng/mL (<50); Oxazepam Ur, GC/MS 111 ng/mL (<50); Temazepam, Confirm 137 ng/mL (<50)
--- NOTE | 2021-12-01 10:01 | Billing Data ---
Date of Service November 21, 2021 Coding Level of Care Code 50700 Initial Inpt Care Lvl 3
== END 2021-11-22 14:40 | disposition home or self-care (01) | DRG 917 ==
LOC: ED 15:19 → SUATTDRO 18:06 → 1E 18:06
DX: T39.091A Poisoning by salicylates, accidental (unintentional), initial encounter; T51.0X1A Toxic effect of ethanol, accidental (unintentional), initial encounter; Z79.82 Long term (current) use of aspirin; Z87.891 Personal history of nicotine dependence; G92.9 Unspecified toxic encephalopathy; Y90.8 Blood alcohol level of 240 mg/100 ml or more; Z96.619 Presence of unspecified artificial shoulder joint; F32.A Depression, unspecified; E87.6 Hypokalemia; F10.229 Alcohol dependence with intoxication, unspecified; G89.4 Chronic pain syndrome; T45.0X1A Poisoning by antiallergic and antiemetic drugs, accidental (unintentional), initial encounter; K86.1 Other chronic pancreatitis; Z88.6 Allergy status to analgesic agent; Z88.8 Allergy status to other drugs, medicaments and biological substances; Z90.49 Acquired absence of other specified parts of digestive tract; Z97.4 Presence of external hearing-aid; G40.909 Epilepsy, unspecified, not intractable, without status epilepticus; E83.51 Hypocalcemia; T42.4X1A Poisoning by benzodiazepines, accidental (unintentional), initial encounter; I25.5 Ischemic cardiomyopathy; Z90.710 Acquired absence of both cervix and uterus; I27.20 Pulmonary hypertension, unspecified; T39.1X1A Poisoning by 4-Aminophenol derivatives, accidental (unintentional), initial encounter; J44.9 Chronic obstructive pulmonary disease, unspecified; E87.1 Hypo-osmolality and hyponatremia; Z98.1 Arthrodesis status

== ENCOUNTER 2022-01-30 11:57 | Observation (INO) ==
--- NOTE | 2022-01-30 13:01 | Emergency Department Note ---
History of Present Illness General Chief complaint: Fall Time Seen by Provider: 01/30/22 12:46 Source: patient and family (Her paRTNER WHO IS AT THE BEDSIDE) Mode of arrival: ambulatory Limitations: no limitations History of Present Illness Maximum Pain Intensity: 10 This patient is a 61-year-old male has a history of alcohol abuse and brain injury, comes in after falling 3 times since around 3:00 in the morning. She tells me she just keeps losing her footing her partner does says she has trouble with this sometimes since having a brain injury in 2010 she also has some cognition problems at times where she cannot do what she wants to do. She also has been drinking heavily and a history of alcoholism they have been trying to stop. She does not have seizures or tremors when she stops according both the patient and her partner. She has a headache but says she feels fine otherwise denies any change in vision denies facial injury neck pain chest pain shortness of breath or abdominal pain. She has an abrasion to her right knee. She is on no blood thinners. She has a history of having seizures after the brain injury but has not had no seizure for many years and in fact is no longer on her medication. She was on Keppra which she took without any problem Home Medications Medication Instructions Recorded Confirmed Type vitamin B complex 1 tab PO QAM 11/25/20 01/30/22 History ibuprofen 200 mg tablet 400 mg PO Q6H PRN 06/24/21 01/30/22 History folic acid 1 mg tablet 1 mg PO QAM #30 tab 06/28/21 01/30/22 Rx thiamine HCl (vitamin B1) 100 mg 100 mg PO QAM #30 tab 06/28/21 01/30/22 Rx tablet (Vitamin B-1) celecoxib 200 mg capsule 200 mg PO DAILY 11/21/21 01/30/22 History hydroxyzine HCl 10 mg tablet 10 mg PO TID PRN 11/21/21 01/30/22 History metoprolol succinate 25 mg 25 mg PO DAILY 11/21/21 01/30/22 History tablet,extended release 24 hr omeprazole 20 mg capsule,delayed 25 mg PO DAILY 11/21/21 01/30/22 History release rizatriptan 10 mg disintegrating 10 mg PO DIRECTED PRN MDD 3 11/21/21 01/30/22 History tablet DOSES/24 HOURS escitalopram oxalate 10 mg tablet 15 mg PO DAILY 01/30/22 01/30/22 History naltrexone 50 mg tablet 100 mg PO DAILY 01/30/22 01/30/22 History Allergies Allergy/AdvReac Type Severity Reaction Status Date / Time gabapentin AdvReac Severe Confusion Verified 01/30/22 17:48 acetaminophen [From Tylenol] AdvReac Unknown CONTRAINDICATED Verified 01/30/22 17:48 DUE TO LIVER ISSUES ibuprofen AdvReac Unknown CONTRAINDICATED Verified 01/30/22 17:48 DUE TO LIVER ISSUES Past Med/Surg History Medical History (Updated 01/30/22 @ 18:12 by Bryn Ovalles MD) Alcoholism Chronic hyponatremia Chronic pancreatitis COPD (chronic obstructive pulmonary disease) Displacement 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 (08/22/11) History of craniotomy Due to subdural hematoma from fall History of tobacco abuse Nonischemic cardiomyopathy Seizure disorder (05/16/12) Severe pulmonary arterial systolic hypertension Uterine leiomyoma (07/18/11) Surgical History History of arthroscopic procedure on shoulder History of onel hole surgery History of carpal tunnel surgery History of cholecystectomy History of hysterectomy S/P cervical spinal fusion Family History Mother Hypertension Social History Smoking Status: Never smoker Tobacco Type: Cigarettes Second Hand Exposure: No; Hx Alcohol Use: Yes Alcohol type: beer Alcohol Intake Frequency Comment: 5 beer s/day Hx Substance Use: No Preferred Language: Italian Communication Ability: Effective 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 Beliefs That Will Affect Care: None marital status: Single Current Living Situation: Spouse Current Living Situation Comment: pt did not answer the question clearly How many Children do You have: 0 Feels Safe at Home: Yes Assistive Devices: None Review of Systems A total of 10 systems reviewed and were otherwise negative Physical Exam Vital Signs Vital Signs - 24 hr 01/30/22 12:08 01/30/22 12:10 01/30/22 12:30 Temperature 37.0 C Temperature Source Oral Pulse Rate 73 75 77 Pulse Rate from SpO2 Sensor 74 Pulse Rhythm Regular Respiratory Rate 12 18 13 Respiratory Effort / Characteristics Respiratory Depth Blood Pressure 121/78 Blood Pressure [Left Arm] Blood Pressure Mean 92 Blood Pressure Mean [Left Arm] Pulse Oximetry 98 98 Oxygen Delivery Method Room Air Sepsis Recent Fever Within 48 Hours No Sepsis New/Unexplained Change in Mental Status No Sepsis Action Taken by Nursing No Action Required 01/30/22 12:57 01/30/22 13:00 01/30/22 13:02 Temperature Temperature Source Pulse Rate 77 79 Pulse Rate from SpO2 Sensor Pulse Rhythm Respiratory Rate 18 16 Respiratory Effort / Characteristics Respiratory Depth Blood Pressure Blood Pressure [Left Arm] Blood Pressure Mean Blood Pressure Mean [Left Arm] Pulse Oximetry 94 Oxygen Delivery Method Room Air Sepsis Recent Fever Within 48 Hours Sepsis New/Unexplained Change in Mental Status Sepsis Action Taken by Nursing 01/30/22 13:50 01/30/22 15:00 01/30/22 15:55 Temperature 37.0 C Temperature Source Oral Pulse Rate Pulse Rate from SpO2 Sensor Pulse Rhythm Respiratory Rate 16 18 Respiratory Effort / Characteristics Non-Labored Respiratory Depth Normal Blood Pressure 106/59 L Blood Pressure [Left Arm] 121/73 Blood Pressure Mean 74 Blood Pressure Mean [Left Arm] 89 Pulse Oximetry 94 98 Oxygen Delivery Method Sepsis Recent Fever Within 48 Hours Sepsis New/Unexplained Change in Mental Status Sepsis Action Taken by Nursing 01/30/22 15:56 01/30/22 16:00 Temperature Temperature Source Pulse Rate Pulse Rate from SpO2 Sensor 77 77 Pulse Rhythm Respiratory Rate Respiratory Effort / Characteristics Respiratory Depth Blood Pressure Blood Pressure [Left Arm] Blood Pressure Mean Blood Pressure Mean [Left Arm] Pulse Oximetry 100 99 Oxygen Delivery Method Sepsis Recent Fever Within 48 Hours Sepsis New/Unexplained Change in Mental Status Sepsis Action Taken by Nursing General: Well developed well nourished middle-age female who is a large hematoma in the right forehead she answers questions appropriately at her baseline she seems mildly sleepy at times but in no acute distress, breathing comfortably on room air. Normal speech nonslurred. No dental trauma midface is stable. HEENT: Normal cephalic atraumatic. Pupils are equal round and reactive to light. Extraocular movements are intact. Oropharynx is pink with moist mucous membranes. No swelling of the mouth lips or tongue. Neck: Supple with a midline trachea. No meningeal signs or stiffness, no JVD or bruits. No Stridor. Chest: Clear to auscultation bilaterally. No wheezes or rhonchi. No increased work of breathing. Heart: Regular rate and rhythm without murmurs or gallops. Abdomen: Soft nontender, nondistended without rebound guarding or rigidity. Extremities: No cyanosis clubbing or edema. No calf tenderness or assymetry Spine/Back. Non tender to palpation. No CVA tenderness. small abrasion right knee. Skin: Good turgor without rashes. Neurologic exam: Cranial nerves two through 12 are intact. Motor and sensation are intact and symmetrical throughout. No Tremor. Course Administered Medications Discontinued Medications Magnesium Sulfate/Dextrose (Magnesium Sulfate / D5w) 1 gm in 100 mls @ 100 mls/hr IV NOW STA Stop: 01/30/22 15:46 Last Infusion: 01/30/22 17:13 Dose: 0 mls/hr Documented by: [id number] Admin: 01/30/22 15:58 Dose: 100 mls/hr Documented by: [id number] Multivitamins 10 ml/ Thiamine HCl 100 mg/ Folic Acid 1 mg/Sodium Chloride 1,011.2 mls @ 1,011.2 mls/hr IV .Q1H ONE Stop: 01/30/22 15:46 Last Infusion: 01/30/22 16:55 Dose: 0 mls/hr Documented by: [id number] Admin: 01/30/22 15:58 Dose: 1,011.2 mls/hr Documented by: [id number] Thiamine HCl 500 mg/ Sodium (Chloride) 55 mls @ 220 mls/hr IV NOW STA Stop: 01/30/22 16:35 Last Infusion: 01/30/22 18:05 Dose: 0 mls/hr Documented by: [id number] Admin: 01/30/22 17:41 Dose: 220 mls/hr Documented by: [id number] Ioversol (Optiray 320 100ml) 92 ml IV ONCE ONE Stop: 01/30/22 15:15 Last Admin: 01/30/22 15:19 Dose: 92 ml Documented by: [id number] Medical Decision Making Differential Diagnosis Traumatic injury, intracranial hemorrhage, skull fractures, intra-abdominal or thoracic injury, alcohol use or withdrawal. Alcohol abuse, electrolyte or metabolic abnormality, dehydration Medical Records Attestation: I reviewed the patient's medical records. Home Medications Current Medication List: was personally reviewed by me Laboratory Data Attestation: I reviewed the patient's lab results. Result diagrams: 01/30/22 14:02 01/30/22 14:02 Lab Results 01/30/22 01/30/22 01/30/22 Range/Units 12:58 12:58 14:02 WBC 2.60 L (4.8-10.8) K/uL RBC 3.69 L (4.2-5.4) M/uL Hgb 10.5 L (12.0-16.0) g/dL POC Hgb (12.0-16.0) g/dl Hct 32.7 L (37-47) % POC Hct (37-47) % MCV 88.6 (80-100) fL MCH 28.5 (25-34) pg MCHC 32.1 (32-36) g/dL RDW Std Deviation 61.1 H (36.4-46.3) fL RDW Coeff of [place] 19.0 H (11.5-14.5) % Plt Count 162 (130-400) K/uL MPV 9.1 (7.4-10.4) fL Immature Gran % (Auto) 0.0 % Neut % (Auto) 54.2 % Lymph % (Auto) 35.8 % [place] % (Auto) 6.9 % Eos % (Auto) 1.9 % Baso % (Auto) 1.2 % Neut # (Auto) 1.41 (1.4-6.5) K/uL Lymph # (Auto) 0.93 L (1.2-3.4) K/uL [place] # (Auto) 0.18 (0.11-0.59) K/uL Eos # (Auto) 0.05 (0-0.5) K/uL Baso # (Auto) 0.03 (0-0.2) K/uL Immature Gran # (Auto) 0.00 (0.00-0.02) K/uL PT (9.0-12.0) Seconds INR (0.9-1.1) APTT (21.0-31.0) Seconds PTT Ratio POC Sodium (135-144) mmol/L Sodium (136-145) mmol/L POC Potassium (3.3-5.0) mmol/L Potassium (3.5-5.1) mmol/L POC Chloride (101-112) mmol/L Chloride (98-107) mmol/L Carbon Dioxide (21-32) mmol/L POC Total CO2 (24-31) mmol/L Anion Gap (3-11) POC Anion Gap (16-25) mmol/L POC BUN (7-18) mg/dl BUN (6-23) mg/dl Creatinine (0.6-1.2) mg/dl POC Creatinine (0.6-1.3) mg/dl Est Cr Clr Drug Dosing Est GFR ( Amer) ml/min Est GFR (Non-Af Amer) ml/min BUN/Creatinine Ratio (10-20) Glucose (70-99(Fasting)) mg/dl POC Glucose (other) (70-99) mg/dl Calcium (8.5-10.1) mg/dl POC Ioniz Calcium Kar (1.12-1.32) mmol/l Magnesium (1.7-2.4) mg/dl Total Bilirubin (0.2-1.0) mg/dl AST (13-39) U/L ALT (7-52) U/L Alkaline Phosphatase (34-104) U/L Ammonia (18-72) umol/L Total Protein (6.0-8.3) gm/dl Albumin (3.4-5.0) gm/dl Globulin (2.5-4.0) gm/dl Albumin/Globulin Ratio (0.9-2) TSH (0.300-4.500) uIu/ml Urine Color Yellow Urine Appearance Clear (Clear) Urine pH 5.5 (4.5-7.5) Ur Specific [place] 1.006 (1.000-1.030) Urine Protein Negative (Negative) Urine Glucose (UA) Negative (Negative) Urine Ketones Negative (Negative) Urine Blood Negative (Negative) Urine Nitrite Negative (Negative) Urine Bilirubin Negative (Negative) Urine Urobilinogen Negative (Negative) Ur Leukocyte Esterase Negative (Negative) Salicylates (3.0-30) mg/dl Acetaminophen (10-30) ug/ml Ethyl Alcohol mg/dL (<10.0) mg/dl SARS-CoV-2, RNA, NAAT NEGATIVE (NEGATIVE) 01/30/22 01/30/22 01/30/22 Range/Units 14:02 14:02 14:02 WBC (4.8-10.8) K/uL RBC (4.2-5.4) M/uL Hgb (12.0-16.0) g/dL POC Hgb (12.0-16.0) g/dl Hct (37-47) % POC Hct (37-47) % MCV (80-100) fL MCH (25-34) pg MCHC (32-36) g/dL RDW Std Deviation (36.4-46.3) fL RDW Coeff of [place] (11.5-14.5) % Plt Count (130-400) K/uL MPV (7.4-10.4) fL Immature Gran % (Auto) % Neut % (Auto) % Lymph % (Auto) % [place] % (Auto) % Eos % (Auto) % Baso % (Auto) % Neut # (Auto) (1.4-6.5) K/uL Lymph # (Auto) (1.2-3.4) K/uL [place] # (Auto) (0.11-0.59) K/uL Eos # (Auto) (0-0.5) K/uL Baso # (Auto) (0-0.2) K/uL Immature Gran # (Auto) (0.00-0.02) K/uL PT 15.4 H (9.0-12.0) Seconds INR 1.5 H (0.9-1.1) APTT 31.0 (21.0-31.0) Seconds PTT Ratio 1.1 POC Sodium (135-144) mmol/L Sodium 141 (136-145) mmol/L POC Potassium (3.3-5.0) mmol/L Potassium 3.8 (3.5-5.1) mmol/L POC Chloride (101-112) mmol/L Chloride 110 H (98-107) mmol/L Carbon Dioxide 23 (21-32) mmol/L POC Total CO2 (24-31) mmol/L Anion Gap 8 (3-11) POC Anion Gap (16-25) mmol/L POC BUN (7-18) mg/dl BUN 8 (6-23) mg/dl Creatinine 0.90 (0.6-1.2) mg/dl POC Creatinine (0.6-1.3) mg/dl Est Cr Clr Drug Dosing Not Reportable Est GFR ( Amer) 79.4 ml/min Est GFR (Non-Af Amer) 68.5 ml/min BUN/Creatinine Ratio 8.9 L (10-20) Glucose 99 (70-99(Fasting)) mg/dl POC Glucose (other) (70-99) mg/dl Calcium 8.2 L (8.5-10.1) mg/dl POC Ioniz Calcium Kar (1.12-1.32) mmol/l Magnesium 1.4 L (1.7-2.4) mg/dl Total Bilirubin 0.5 (0.2-1.0) mg/dl AST 195 H (13-39) U/L ALT 78 H (7-52) U/L Alkaline Phosphatase 91 (34-104) U/L Ammonia (18-72) umol/L Total Protein 6.5 (6.0-8.3) gm/dl Albumin 3.6 (3.4-5.0) gm/dl Globulin 2.9 (2.5-4.0) gm/dl Albumin/Globulin Ratio 1.2 (0.9-2) TSH 0.721 (0.300-4.500) uIu/ml Urine Color Urine Appearance (Clear) Urine pH (4.5-7.5) Ur Specific [place] (1.000-1.030) Urine Protein (Negative) Urine Glucose (UA) (Negative) Urine Ketones (Negative) Urine Blood (Negative) Urine Nitrite (Negative) Urine Bilirubin (Negative) Urine Urobilinogen (Negative) Ur Leukocyte Esterase (Negative) Salicylates (3.0-30) mg/dl Acetaminophen (10-30) ug/ml Ethyl Alcohol mg/dL (<10.0) mg/dl SARS-CoV-2, RNA, NAAT (NEGATIVE) 01/30/22 01/30/22 01/30/22 Range/Units 14:02 14:02 14:26 WBC (4.8-10.8) K/uL RBC (4.2-5.4) M/uL Hgb (12.0-16.0) g/dL POC Hgb 12.9 (12.0-16.0) g/dl Hct (37-47) % POC Hct 38 (37-47) % MCV (80-100) fL MCH (25-34) pg MCHC (32-36) g/dL RDW Std Deviation (36.4-46.3) fL RDW Coeff of [place] (11.5-14.5) % Plt Count (130-400) K/uL MPV (7.4-10.4) fL Immature Gran % (Auto) % Neut % (Auto) % Lymph % (Auto) % [place] % (Auto) % Eos % (Auto) % Baso % (Auto) % Neut # (Auto) (1.4-6.5) K/uL Lymph # (Auto) (1.2-3.4) K/uL [place] # (Auto) (0.11-0.59) K/uL Eos # (Auto) (0-0.5) K/uL Baso # (Auto) (0-0.2) K/uL Immature Gran # (Auto) (0.00-0.02) K/uL PT (9.0-12.0) Seconds INR (0.9-1.1) APTT (21.0-31.0) Seconds PTT Ratio POC Sodium 145 H (135-144) mmol/L Sodium (136-145) mmol/L POC Potassium 3.7 (3.3-5.0) mmol/L Potassium (3.5-5.1) mmol/L POC Chloride 109 (101-112) mmol/L Chloride (98-107) mmol/L Carbon Dioxide (21-32) mmol/L POC Total CO2 21 L (24-31) mmol/L Anion Gap (3-11) POC Anion Gap 20.0 (16-25) mmol/L POC BUN 6 L (7-18) mg/dl BUN (6-23) mg/dl Creatinine (0.6-1.2) mg/dl POC Creatinine 1.1 (0.6-1.3) mg/dl Est Cr Clr Drug Dosing Est GFR ( Amer) ml/min Est GFR (Non-Af Amer) ml/min BUN/Creatinine Ratio (10-20) Glucose (70-99(Fasting)) mg/dl POC Glucose (other) 101 H (70-99) mg/dl Calcium (8.5-10.1) mg/dl POC Ioniz Calcium Kar 1.01 L (1.12-1.32) mmol/l Magnesium (1.7-2.4) mg/dl Total Bilirubin (0.2-1.0) mg/dl AST (13-39) U/L ALT (7-52) U/L Alkaline Phosphatase (34-104) U/L Ammonia (18-72) umol/L Total Protein (6.0-8.3) gm/dl Albumin (3.4-5.0) gm/dl Globulin (2.5-4.0) gm/dl Albumin/Globulin Ratio (0.9-2) TSH (0.300-4.500) uIu/ml Urine Color Urine Appearance (Clear) Urine pH (4.5-7.5) Ur Specific [place] (1.000-1.030) Urine Protein (Negative) Urine Glucose (UA) (Negative) Urine Ketones (Negative) Urine Blood (Negative) Urine Nitrite (Negative) Urine Bilirubin (Negative) Urine Urobilinogen (Negative) Ur Leukocyte Esterase (Negative) Salicylates 22.8 (3.0-30) mg/dl Acetaminophen < 3 L (10-30) ug/ml Ethyl Alcohol mg/dL 300.6 H (<10.0) mg/dl SARS-CoV-2, RNA, NAAT (NEGATIVE) 01/30/22 Range/Units Unknown WBC (4.8-10.8) K/uL RBC (4.2-5.4) M/uL Hgb (12.0-16.0) g/dL POC Hgb (12.0-16.0) g/dl Hct (37-47) % POC Hct (37-47) % MCV (80-100) fL MCH (25-34) pg MCHC (32-36) g/dL RDW Std Deviation (36.4-46.3) fL RDW Coeff of [place] (11.5-14.5) % Plt Count (130-400) K/uL MPV (7.4-10.4) fL Immature Gran % (Auto) % Neut % (Auto) % Lymph % (Auto) % [place] % (Auto) % Eos % (Auto) % Baso % (Auto) % Neut # (Auto) (1.4-6.5) K/uL Lymph # (Auto) (1.2-3.4) K/uL [place] # (Auto) (0.11-0.59) K/uL Eos # (Auto) (0-0.5) K/uL Baso # (Auto) (0-0.2) K/uL Immature Gran # (Auto) (0.00-0.02) K/uL PT (9.0-12.0) Seconds INR (0.9-1.1) APTT (21.0-31.0) Seconds PTT Ratio POC Sodium (135-144) mmol/L Sodium (136-145) mmol/L POC Potassium (3.3-5.0) mmol/L Potassium (3.5-5.1) mmol/L POC Chloride (101-112) mmol/L Chloride (98-107) mmol/L Carbon Dioxide (21-32) mmol/L POC Total CO2 (24-31) mmol/L Anion Gap (3-11) POC Anion Gap (16-25) mmol/L POC BUN (7-18) mg/dl BUN (6-23) mg/dl Creatinine (0.6-1.2) mg/dl POC Creatinine (0.6-1.3) mg/dl Est Cr Clr Drug Dosing Est GFR ( Amer) ml/min Est GFR (Non-Af Amer) ml/min BUN/Creatinine Ratio (10-20) Glucose (70-99(Fasting)) mg/dl POC Glucose (other) (70-99) mg/dl Calcium (8.5-10.1) mg/dl POC Ioniz Calcium Kar (1.12-1.32) mmol/l Magnesium (1.7-2.4) mg/dl Total Bilirubin (0.2-1.0) mg/dl AST (13-39) U/L ALT (7-52) U/L Alkaline Phosphatase (34-104) U/L Ammonia 29.0 (18-72) umol/L Total Protein (6.0-8.3) gm/dl Albumin (3.4-5.0) gm/dl Globulin (2.5-4.0) gm/dl Albumin/Globulin Ratio (0.9-2) TSH (0.300-4.500) uIu/ml Urine Color Urine Appearance (Clear) Urine pH (4.5-7.5) Ur Specific [place] (1.000-1.030) Urine Protein (Negative) Urine Glucose (UA) (Negative) Urine Ketones (Negative) Urine Blood (Negative) Urine Nitrite (Negative) Urine Bilirubin (Negative) Urine Urobilinogen (Negative) Ur Leukocyte Esterase (Negative) Salicylates (3.0-30) mg/dl Acetaminophen (10-30) ug/ml Ethyl Alcohol mg/dL (<10.0) mg/dl SARS-CoV-2, RNA, NAAT (NEGATIVE) Imaging Data Attestation: I personally reviewed and interpreted this imaging study as follows: My Impression: Head CTno acute hemorrhage or mass-effect seen Chest x-rayno acute infiltrate or pneumothorax seen Radiologist's Impression: Chest X-Ray 01/30/22 12:57 XR chest 1V portable CLINICAL HISTORY: weakness TECHNIQUE: Single frontal radiograph of the chest was obtained. Comparison: Comparison is made to chest radiograph 11/21/2021 FINDINGS: No lines and tubes are seen. The cardiomediastinal silhouette is normal. The lungs are clear. No evidence of pleural effusion or pneumothorax. IMPRESSION: No acute chest disease. ACT 112: Negative or not required by law. Electronically signed by: Jay Hernandez M.D. 01/30/2022 1:24 PM Abdomen/Pelvis CT 01/30/22 12:58 CT SCAN OF THE ABDOMEN AND PELVIS WITH IV CONTRAST CLINICAL HISTORY: Trauma. Fall. COMPARISON STUDY: Abdominal CT dated 11/26/2020. TECHNIQUE: Following the IV administration of 92 cc of Optiray 320, CT scan of the abdomen and pelvis is performed from the lung bases to the proximal femora. Images are reviewed in the axial, sagittal, and coronal planes. IV contrast was administered without complication. A dose lowering technique was utilized adhering to the principles of ALARA. FINDINGS: Lung bases: The heart is normal in size and without pericardial effusion. The lung bases are clear noting bibasilar scarring/atelectasis. There is no basilar pneumothorax. There is a tiny hiatal hernia. Liver: The contrast-enhanced liver is cirrhotic in morphology and heterogeneous in attenuation. There is nodularity of the hepatic surface contour. There is no intrahepatic biliary ductal dilatation. The hepatic veins and portal veins are patent. Gallbladder: Surgically absent noting clips in the gallbladder fossa. Spleen: Normal in size and attenuation. Pancreas: There are numerous parenchymal calcifications indicating chronic pancreatitis. There is mild glandular atrophy. The duct is normal in caliber. Adrenal glands: Unremarkable. Kidneys: The contrast enhanced kidneys demonstrate mild cortical atrophy and are without hydronephrosis. The kidneys enhance symmetrically. Abdominal vasculature: The abdominal aorta is normal in course and caliber noting moderate to advanced atherosclerotic calcification. Bowel: There is no bowel obstruction. The gastric mucosa appears thickened and hyperemic. The appendix is normal as visualized. Peritoneum: There is no intraperitoneal free air or abdominal ascites. Lymphadenopathy: None. Pelvic viscera: The bladder is distended but otherwise normal in appearance. The uterus is surgically absent. No adnexal lesion is seen. Skeletal structures: The skeletal structures are osteopenic. The lumbosacral spine, bony pelvis, and proximal femora appear intact. There is mild lumbosacral spondylosis. No lytic or blastic lesions are seen. IMPRESSION: 1. There is no evidence of solid organ injury in the abdomen or pelvis. 2. Cirrhotic liver morphology. 3. There is evidence of chronic pancreatitis. 4. Bladder distention. 5. Findings suggest gastritis. Clinical correlation will be required. 6. Additional findings as above. ACT 112: Negative or not required by law. Electronically signed by: Keegan Caceres M.D. 01/30/2022 3:[address] 01/30/22 12:58 CT cervical spine wo con CLINICAL HISTORY: fall . Neck pain COMPARISON STUDY: 11/21/2021 CT DOSE: TECHNIQUE: Standard CT of the Cervical Spine was performed without IV contrast. A dose lowering technique was utilized adhering to the principles of ALARA. FINDINGS: Bones: The bones are osteopenic. The patient is again status post anterior plate and screw fixation from C4 through C7 with solid fusion present. There is no evidence for an acute fracture or malalignment. The heights of the vertebral bodies are maintained. The vertebral bodies are in anatomic alignment. The odontoid is intact and the atlantoaxial articulation is within normal limits. Disc spaces: There is mild disc space narrowing at C3-4, the disc space level above the spine fusion in that C7-T1, the disc space level below the spine fusion. Apophyseal joints: Degenerative apophyseal joint disease is present bilaterally. Soft tissues: The prevertebral soft tissues are within normal limits. IMPRESSION: 1. Osteopenia with no acute osseous pathology. 2. Stable internal fixation with degenerative disc and degenerative joint disease. ACT 112: Negative or not required by law. Electronically signed by: Shreyas Villaseñor M.D. 01/30/2022 3:[address] 01/30/22 12:58 CT chest diagnostic w con CLINICAL HISTORY: fall TECHNIQUE: Multidetector row helical CT of the chest was performed with intravenous contrast. Coronal and sagittal reformations were obtained. Automated dose lowering techniques and/or adjustment according to patient size were utilized for this exam. Comparison: Comparison is made to CT chest 11/26/2020 FINDINGS: Lungs and pleura: Atelectasis versus scarring is seen in the dependent portions of the lungs. Heart and pericardium: Heart size is normal. No pericardial effusion. Vessels: Unremarkable. Mediastinum and raya: Subcentimeter lymph nodes are seen. Chest wall and lower neck: Unremarkable. Abdomen: For findings below the diaphragm, please refer to CT of the abdomen dated the same. Bones: Degenerative changes in the thoracic spine. Anterior cervical fixation hardware is seen. IMPRESSION: No acute abnormalities are seen. ACT 112: Negative or not required by law. Electronically signed by: Jay Hernandez M.D. 01/30/2022 3:[address] 01/30/22 12:58 CT head/brain wo con CLINICAL HISTORY: fall Technique: Contiguous axial CT images of the head were acquired from the base of the skull to the vertex without intravenous contrast administration. Images were viewed in brain, subdural and bone windows. Automated dose lowering techniques and/or adjustment according to patient size were utilized for this exam. Comparison: Comparison is made to CT abdomen 11/21/2021 Findings: The ventricles, basal cisterns, and cerebral sulci are normal. There is no acute intracranial hemorrhage or evidence of acute territorial infarction. Neither mass effect, shift of the midline structures, nor abnormal extra-axial fluid collections are shown. Imaged portions of the paranasal sinuses and mastoid air cells are clear. The orbits appear normal. There are no acute fractures of the calvaria. Soft tissue swelling is seen in the right frontal soft tissues. Postsurgical changes are seen about the right calvarium. Impression: No acute intracranial hemorrhage or skull fractures. Scalp swelling is seen in the right frontal soft tissues. ACT 112: Negative or not required by law. Electronically signed by: Jay Hernandez M.D. 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 Multiple blood testing was obtained she was placed on a surveillance system monitor I did order a CAT scan of her head but given the fact that she is falling and drinking I did order a CTA of her neck chest abdomen and pelvis as well to complete the sanches trauma scans. She was reassessed frequently. Her EKG does not suggest acute coronary syndrome or arrhythmia. CAT scans of her head, neck, chest, abdomen and pelvis do not show any significant traumatic injury she has a hematoma of her scalp but no skull fracture or intracranial hemorrhage. Her magnesium was low at 1.4 I replaced th is. Her alcohol was high at 300. She did receive IV banana bag while she was here as well. she has had no signs of withdrawing. Her significant other was concerned that she does take a lot of aspirin. She says she takes this for neck pain and she has overdosed on aspirin before. She has no significant acidosis to suggest aspirin toxicity and her salicylate level is within normal limits but this still may need to be further monitored. I do think she needs to be admitted given her frequent falls for further treatment and evaluation and monitoring. I have consult Dr. Prieto to see the patient in ER for these measures. Continuous cardiac monitoring: Orders placed in EMR for continuous cardiac monitoring. Upon my interpretation, the patient was noted to be in normal sinus rhythm with a rate of 70 Impression & Plan Weakness, Hypomagnesemia, Head injury, Frequent falls, Alcohol intoxication, Lab test negative for COVID-19 virus, Ambulatory dysfunction Discharge Plan Visit Data Chief Complaint: Fall ED Provider: Bryn Ovalles Discharge Problem: Weakness, Hypomagnesemia, Head injury, Frequent falls, Alcohol intoxication, Lab test negative for COVID-19 virus, Ambulatory dysfunction Forms Stand Alone Forms: My [facility] Prescriptions Prescriptions: No Action vitamin B complex Tablet 1 tab PO QAM RF: 0 metoprolol succinate 25 mg tablet extended release 24 hr 25 mg PO DAILY RF: 0 celecoxib 200 mg capsule 200 mg PO DAILY RF: 0 rizatriptan 10 mg tablet,disintegrating 10 mg PO DIRECTED MDD 3 DOSES/24 HOURS PRN (Reason: Migraine Headache) RF: 0 omeprazole 20 mg capsule,delayed release(DR/EC) 25 mg PO DAILY RF: 0 hydroxyzine HCl 10 mg tablet 10 mg PO TID PRN (Reason: Anxiety) RF: 0 naltrexone 50 mg tablet 100 mg PO DAILY RF: 0 escitalopram oxalate 10 mg tablet 15 mg PO DAILY RF: 0 ibuprofen 200 mg Tablet 400 mg PO Q6H PRN (Reason: Pain) RF: 0 folic acid 1 mg Tablet 1 mg PO QAM Qty: 30 RF: 0 thiamine HCl (vitamin B1) [Vitamin B-1] 100 mg Tablet 100 mg PO QAM Qty: 30 RF: 0 Referrals Referrals: Dorothy Valdes CRNP [Primary Care Provider] - Discharge Problem: Head injury Qualifiers: Encounter type: initial encounter Qualified Code(s): S09.90XA - Unspecified i njury of head, initial encounter Alcohol intoxication Qualifiers: Complication of substance-induced condition: uncomplicated Qualified Code(s): F10.920 - Alcohol use, unspecified with intoxication, uncomplicated
--- NOTE | 2022-01-30 13:26 | XRay Report ---
XR chest 1V portable CLINICAL HISTORY: weakness TECHNIQUE: Single frontal radiograph of the chest was obtained. Comparison: Comparison is made to chest radiograph 11/21/2021 FINDINGS: No lines and tubes are seen. The cardiomediastinal silhouette is normal. The lungs are clear. No evid ence of pleural effusion or pneumothorax. IMPRESSION: No acute chest disease. ACT 112: Negative or not required by law. Electronically signed by: Jay Hernandez M.D. 01/30/2022 1:24 PM
[2022-01-30 13:44] LABS: Appearance Urine Clear (Clear); Bilirubin Urine Negative (Negative); Blood Urine Negative (Negative); Color Urine Yellow; Glucose Urine UA Negative (Negative); Ketones Urine Negative (Negative); Leukocyte Esterase Urine Negative (Negative); Nitrite Urine Negative (Negative); Protein Urine Negative (Negative); Specific Gravity Urine 1.006 (1.000-1.030); Urobilinogen Urine Negative (Negative); pH Urine 5.5 (4.5-7.5)
[2022-01-30 14:36] LABS: INR 1.5 (0.9-1.1); Partial Thromboplastin Ratio 1.1; Prothrombin Time 15.4 Seconds (9.0-12.0)
[2022-01-30 14:38] LABS: Alanine Aminotransferase 78 U/L (7-52); Albumin Globulin Ratio 1.2 (0.9-2); Albumin Level 3.6 gm/dl (3.4-5.0); Alkaline Phosphatase 91 U/L (34-104); Anion Gap 8 (3-11); Aspartate Aminotransferase 195 U/L (13-39); BUN Creatinine Ratio 8.9 (10-20); Bilirubin,Total 0.5 mg/dl (0.2-1.0); Blood Urea Nitrogen 8 mg/dl (6-23); Calcium 8.2 mg/dl (8.5-10.1); Carbon Dioxide 23 mmol/L (21-32); Chloride 110 mmol/L (98-107); Est GFR (African American) 79.4 ml/min; Est GFR (Non-African American) 68.5 ml/min; Globulin 2.9 gm/dl (2.5-4.0); Glucose 99 mg/dl (70-99(Fasting)); Magnesium 1.4 mg/dl (1.7-2.4); Potassium 3.8 mmol/L (3.5-5.1); Sodium 141 mmol/L (136-145); Total Protein 6.5 gm/dl (6.0-8.3)
[2022-01-30 14:41] LABS: iSTAT Creatinine 1.1 mg/dl (0.6-1.3); iSTAT Hemoglobin 12.9 g/dl (12.0-16.0); iSTAT Ionized Calcium 1.01 mmol/l (1.12-1.32); iSTAT Potassium 3.7 mmol/L (3.3-5.0)
[2022-01-30] MEDS ORDERED: MAGNESIUM SULFATE / D5W 1 GM/100 ML BAG IV STA (14:47)
[2022-01-30] MEDS ORDERED: MULTI-VITAMIN INFUSION 10 ML, THIAMINE HCL 100 MG, FOLIC ACID 1 MG in SODIUM CHLORIDE 0... IV ONE (14:47)
[2022-01-30 14:49] LABS: Acetaminophen < 3 ug/ml (10-30); Salicylate 22.8 mg/dl (3.0-30)
[2022-01-30 14:52] LABS: Basophils # (auto) 0.03 K/uL (0-0.2); Basophils % (auto) 1.2 %; Eosinophils # (auto) 0.05 K/uL (0-0.5); Eosinophils % (auto) 1.9 %; Hematocrit (blood only) 32.7 % (37-47); Hemoglobin 10.5 g/dL (12.0-16.0); Lymphocytes # (auto) 0.93 K/uL (1.2-3.4); Lymphocytes % (auto) 35.8 %; Mean Corpuscular Hemoglobin 28.5 pg (25-34); Mean Corpuscular Hgb Conc 32.1 g/dL (32-36); Mean Corpuscular Volume 88.6 fL (80-100); Mean Platelet Volume 9.1 fL (7.4-10.4); Monocytes # (auto) 0.18 K/uL (0.11-0.59); Monocytes % (auto) 6.9 %; Neutrophils # (auto) 1.41 K/uL (1.4-6.5); Neutrophils % (auto) 54.2 %; Platelet Count 162 K/uL (130-400); RDW Standard Deviation 61.1 fL (36.4-46.3); Red Blood Count 3.69 M/uL (4.2-5.4)
[2022-01-30] MEDS ORDERED: OPTIRAY 320 100ml IV ONE (15:14)
--- NOTE | 2022-01-30 15:27 | CT Scan Report ---
CT head/brain wo con CLINICAL HISTORY: fall Technique: Contiguous axial CT images of the head were acquired from the base of the skull to the crystal ching without intravenous contrast administration. Images were viewed in brain, subdural and bone [facility]. Automated dose lowering techniques and/or adjustment according to patient size were utilized for this exam. Comparison: Comparison is made to CT abdomen 11/21/2021 Findings: The ventricles, basal cisterns, and cerebral sulci are normal. There is no acute intracranial hemorrh age or evidence of acute territorial infarction. Neither mass effect, shift of the midline structures , nor abnormal extra-axial fluid collections are shown. Imaged portions of the paranasal sinuses and mastoid air cells are clear. The orbits appear normal. There are no acute fractures of the calvaria. Soft tissue swelling is seen in the right frontal soft tissues. Postsurgical changes are seen about the right calvarium. Impression: No acute intracranial hemorrhage or skull fractures. Scalp swelling is seen in the right frontal soft tissues. ACT 112: Negative or not required by law. Electronically signed by: Jay Hernandez M.D. 01/30/2022 3:26 PM
--- NOTE | 2022-01-30 15:33 | CT Scan Report ---
CT chest diagnostic w con CLINICAL HISTORY: fall TECHNIQUE: Multidetector row helical CT of the chest was performed with intravenous contrast. Coronal and sagittal reformations were obtained. Automated dose lowering techniques and/or adjustment accord ing to patient size were utilized for this exam. Comparison: Comparison is made to CT chest 11/26/2020 FINDINGS: Lungs and pleura: Atelectasis versus scarring is seen in the dependent portions of the lungs. Heart and pericardium: Heart size is normal. No pericardial effusion. Vessels: Unremarkable. Mediastinum and raya: Subcentimeter lymph nodes are seen. Chest wall and lower neck: Unremarkable. Abdomen: For findings below the diaphragm, please refer to CT of the abdomen dated the same. Bones: Degenerative changes in the thoracic spine. Anterior cervical fixation hardware is seen. IMPRESSION: No acute abnormalities are seen. ACT 112: Negative or not required by law. Electronically signed by: Jay Hernandez M.D. 01/30/2022 3:32 PM
--- NOTE | 2022-01-30 15:36 | CT Scan Report ---
CT cervical spine wo con CLINICAL HISTORY: fall . Neck pain COMPARISON STUDY: 11/21/2021 CT DOSE: TECHNIQUE: Standard CT of the Cervical Spine was performed without IV contrast. A dose lowering wilman hnique was utilized adhering to the principles of ALARA. FINDINGS: Bones: The bones are osteopenic. The patient is again status post anterior plate and screw fixation f rom C4 through C7 with solid fusion present. There is no evidence for an acute fracture or malalignme nt. The heights of the vertebral bodies are maintained. The vertebral bodies are in anatomic alignmen t. The odontoid is intact and the atlantoaxial articulation is within normal limits. Disc spaces: There is mild disc space narrowing at C3-4, the disc space level above the spine fusion in that C7-T1, the disc space level below the spine fusion. Apophyseal joints: Degenerative apophyseal joint disease is present bilaterally. Soft tissues: The prevertebral soft tissues are within normal limits. IMPRESSION: 1. Osteopenia with no acute osseous pathology. 2. Stable internal fixation with degenerative disc and degenerative joint disease. ACT 112: Negative or not required by law. Electronically signed by: Shreyas Villaseñor M.D. 01/30/2022 3:34 PM
--- NOTE | 2022-01-30 15:52 | CT Scan Report ---
CT SCAN OF THE ABDOMEN AND PELVIS WITH IV CONTRAST CLINICAL HISTORY: Trauma. Fall. COMPARISON STUDY: Abdominal CT dated 11/26/2020. TECHNIQUE: Following the IV administration of 92 cc of Optiray 320, CT scan of the abdomen and pelvi s is performed from the lung bases to the proximal femora. Images are reviewed in the axial, sagittal , and coronal planes. IV contrast was administered without complication. A dose lowering technique wa s utilized adhering to the principles of ALARA. FINDINGS: Lung bases: The heart is normal in size and without pericardial effusion. The lung bases are clear no ting bibasilar scarring/atelectasis. There is no basilar pneumothorax. There is a tiny hiatal hernia. Liver: The contrast-enhanced liver is cirrhotic in morphology and heterogeneous in attenuation. There is nodularity of the hepatic surface contour. There is no intrahepatic biliary ductal dilatation. Th e hepatic veins and portal veins are patent. Gallbladder: Surgically absent noting clips in the gallbladder fossa. Spleen: Normal in size and attenuation. Pancreas: There are numerous parenchymal calcifications indicating chronic pancreatitis. There is mil d glandular atrophy. The duct is normal in caliber. Adrenal glands: Unremarkable. Kidneys: The contrast enhanced kidneys demonstrate mild cortical atrophy and are without hydronephros is. The kidneys enhance symmetrically. Abdominal vasculature: The abdominal aorta is normal in course and caliber noting moderate to advance d atherosclerotic calcification. Bowel: There is no bowel obstruction. The gastric mucosa appears thickened and hyperemic. The appendi x is normal as visualized. Peritoneum: There is no intraperitoneal free air or abdominal ascites. Lymphadenopathy: None. Pelvic viscera: The bladder is distended but otherwise normal in appearance. The uterus is surgically absent. No adnexal lesion is seen. Skeletal structures: The skeletal structures are osteopenic. The lumbosacral spine, bony pelvis, and proximal femora appear intact. There is mild lumbosacral spondylosis. No lytic or blastic lesions are seen. IMPRESSION: 1. There is no evidence of solid organ injury in the abdomen or pelvis. 2. Cirrhotic liver morphology. 3. There is evidence of chronic pancreatitis. 4. Bladder distention. 5. Findings suggest gastritis. Clinical correlation will be required. 6. Additional findings as above. ACT 112: Negative or not required by law. Electronically signed by: Keegan Caceres M.D. 01/30/2022 3:51 PM
[2022-01-30] MEDS ORDERED: THIAMINE HCL 500 MG in SODIUM CHLORIDE 0.9% 50 ML IV STA (16:34)
--- NOTE | 2022-01-30 16:40 | History & Physical Report ---
Date of Service January 30, 2022 Assessment & Plan (1) Frequent falls: Plan: Suspect related to alcohol intoxication with history of concussion Start IV thiamine 500mg TID although low suspicion of Wernicke's B12 level with AM labs On recent med change per patient is hydroxyzine therefore will hold this medication in case contributing to her worsening balance. PT eval Urine toxicology pending Monitor on telemetry for arrhythmia given unreliable history (2) Hypomagnesemia: Plan: Mg level 1.4 - Mg sulphate 1g IV, additional 2g IV now. Mg oxide 400mg PO daily. (3) Scalp hematoma: Plan: At risk of developing subdural. Would make sure patient is observed at home if discharged home tomorrow given history of this and significant scalp ecchymosis. Discussed avoiding aspirin and NSAIDs due to increased bleeding risk. Will defer VTE Prophylaxis. (4) Elevated LFTs: Plan: Suspect alcohol induced, will trend with AM labs to make sure not turning into acute alcoholic hepatitis. (5) Alcohol intoxication: Plan: Ethyl alcohol level 300.6 mg/dL on admission, no history of alcohol withdrawal per patient (6) Alcohol use disorder, moderate, dependence: Plan: Interested in possible inpatient treatment for this Continue naltrexone 100mg PO daily (7) Depression: Plan: Continue Lexapro 15mg PO daily (8) COPD (chronic obstructive pulmonary disease): Plan: Noted history of this but not on maintenance inhalers. No acute exacerbation suspected (9) Nonischemic cardiomyopathy: Plan: Noted history of this. No concern for heart failure at this time. (10) Liver cirrhosis: Plan: Follow up with gastroenterology as outpatient. Prior history of hepatitis C. Ammonia - 29 MELD - 11, 6.0% 3 month mortality (11) Gastritis: Plan: Switch omeprazole for pantoprazole per hospital formulary. Plan: VTE Prophylaxis - deferred chemical prophylaxis due to scalp hematoma and risk of subdural, no SCDs due to alcohol intoxication adn risk of falls Diet - regular Disposition - observation status on med/tele Admission and Anticipated Discharge Date Admission Date: January 30, 2022 History of Present Illness Chief Complaint: Fall Primary Care Provider: Dorothy Valdes Nury Rivas is a 61 year old female who presents to the ER due to recurrent falls. She fell twice this morning although unable to get a clear history from the patient how this happened. Initial fall was indoors and she thinks she tripped over herself and hit her head. Did not loose consciousness. She was feeling ok prior to falling without dizziness or lightheadedness. She then went outside to take the trash out and fell outside on the brush, again she feels she just tripped over something. She has had 8 falls in the last year which she blames on her prior subdural hematoma 6 years ago and 4-5 concussions since that time. She reports drinking alcohol on a daily basis, usually 3-6 [place] [employer]. She drinks alcohol due to chronic pain that is not under control. She last drank this morning 1.5 beer cans. She does not drink liquor or wine. Difficult to get a history from patient what she has tried before in past to give up alcohol but never tried inpatient rehabilitation. She reports last trying to give up a year ago and had no alcohol withdrawal symptoms and never has when quitting. She reports taking aspirin 325mg PO QID due to chronic pain "all over" but mainly in her neck and back. She reports taking "all B vitamins known to man". In the ER ethyl alcohol level 300.6 mg/dL. Due to significant scalp hematoma, weakness, low magnesium, current alcohol intoxication, recurrent falls and not clear history she was referred to medicine for admission and ongoing management. Allergies Allergy/AdvReac Type Severity Reaction Status Date / Time gabapentin AdvReac Severe Confusion Verified 01/30/22 17:48 acetaminophen [From Tylenol] AdvReac Unknown CONTRAINDICATED Verified 01/30/22 17:48 DUE TO LIVER ISSUES ibuprofen AdvReac Unknown CONTRAINDICATED Verified 01/30/22 17:48 DUE TO LIVER ISSUES Home Medications Medication Instructions Recorded Confirmed Type vitamin B complex 1 tab PO QAM 11/25/20 01/30/22 History ibuprofen 200 mg tablet 400 mg PO Q6H PRN 06/24/21 01/30/22 History folic acid 1 mg tablet 1 mg PO QAM #30 tab 06/28/21 01/30/22 Rx thiamine HCl (vitamin B1) 100 mg 100 mg PO QAM #30 tab 06/28/21 01/30/22 Rx tablet (Vitamin B-1) celecoxib 200 mg capsule 200 mg PO DAILY 11/21/21 01/30/22 History hydroxyzine HCl 10 mg tablet 10 mg PO TID PRN 11/21/21 01/30/22 History metoprolol succinate 25 mg 25 mg PO DAILY 11/21/21 01/30/22 History tablet,extended release 24 hr omeprazole 20 mg capsule,delayed 25 mg PO DAILY 11/21/21 01/30/22 History release rizatriptan 10 mg disintegrating 10 mg PO DIRECTED PRN MDD 3 11/21/21 01/30/22 History tablet DOSES/24 HOURS escitalopram oxalate 10 mg tablet 15 mg PO DAILY 01/30/22 01/30/22 History naltrexone 50 mg tablet 100 mg PO DAILY 01/30/22 01/30/22 History Past Med/Surg History Medical History (Updated 01/31/22 @ 07:32 by Jose Prieto MD) Alcoholism Chronic hyponatremia Chronic pancreatitis COPD (chronic obstructive pulmonary disease) Displacement 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 (08/22/11) History of craniotomy Due to subdural hematoma from fall History of tobacco abuse Nonischemic cardiomyopathy Seizure disorder (05/16/12) Severe pulmonary arterial systolic hypertension Uterine leiomyoma (07/18/11) Surgical History History of arthroscopic procedure on shoulder History of onel hole surgery History of carpal tunnel surgery History of cholecystectomy History of hysterectomy S/P cervical spinal fusion Family History Mother Hypertension Social History Smoking Status: Former smoker Tobacco Type: Cigarettes Second Hand Exposure: No; Do You Dip or Chew Tobacco: No; Hx Alcohol Use: Yes Alcohol type: beer Alcohol Intake Frequency Comment: 5 beers/day Hx Substance Use: No Preferred Language: Turkmen Communication Ability: Effective Pediatric Occupational Therapist Required: No Beliefs That Will Affect Care: None marital status: Single Current Living Situation: Spouse Current Living Situation Comment: pt did not answer the question clearly How many Children do You have: 0 Feels Safe at Home: Yes Safety Concerns: Feels Safe At This Time Assistive Devices: None Review of Systems Review of Systems: All systems reviewed & are unremarkable except as noted in HPI & below Physical Exam Constitutional: well developed and well nourished; no acute distress Eyes: PERRL, conjunctivae normal, anicteric sclerae + nystagmus (bilateral horizontal, no diplopia) ENMT: external ear and nose normal, oropharynx normal Neck: trachea midline, no thyromegaly Respiratory: normal respiratory effort, lungs clear to auscultation Cardiovascular: RRR, no murmur, no edema Gastrointestinal (Abdomen): normal bowel sounds, soft, nontender, no hepatosp lenomegaly Musculoskeletal: no cyanosis or clubbing, extremities motor strength 5/5 Skin: Right scalp swelling and ecchymosis above right eyebrow Neurologic: moves all extremities and awake; no focal motor deficits (no unilateral weakness) and not confused Speech / Cognition: normal speech Motor/Sensory: no tremor, no pronator drift and no sensory deficit Coordination: normal [id number] test Psychiatric: A+Ox3, euthymic affect Genitourinary: no CVA tenderness Results & Data Results & Data ([facility]) Vital Signs (Past 12 Hours) Vital Signs Temp Pulse Resp BP BP Pulse Ox 01/30/22 15:00 18 121/73 98 01/30/22 13:50 37.0 C 16 94 01/30/22 12:57 94 01/30/22 12:10 37.0 C 75 18 121/[address] head/brain wo con CLINICAL HISTORY: fall Technique: Contiguous axial CT images of the head were acquired from the base of the skull to the vertex without intravenous contrast administration. Images were viewed in brain, subdural and bone windows. Automated dose lowering techniques and/or adjustment according to patient size were utilized for this exam. Comparison: Comparison is made to CT abdomen 11/21/2021 Findings: The ventricles, basal cisterns, and cerebral sulci are normal. There is no acute intracranial hemorrhage or evidence of acute territorial infarction. Neither mass effect, shift of the midline structures, nor abnormal extra-axial fluid collections are shown. Imaged portions of the paranasal sinuses and mastoid air cells are clear. The orbits appear normal. There are no acute fractures of the calvaria. Soft tissue swelling is seen in the right frontal soft tissues. Postsurgical changes are seen about the right calvarium. Impression: No acute intracranial hemorrhage or skull fractures. Scalp swelling is seen in the right frontal soft tissues. CT cervical spine wo con CLINICAL HISTORY: fall . Neck pain COMPARISON STUDY: 11/21/2021 CT DOSE: TECHNIQUE: Standard CT of the Cervical Spine was performed without IV contrast. A dose lowering technique was utilized adhering to the principles of ALARA. FINDINGS: Bones: The bones are osteopenic. The patient is again status post anterior plate and screw fixation from C4 through C7 with solid fusion present. There is no evidence for an acute fracture or malalignment. The heights of the vertebral bodies are maintained. The vertebral bodies are in anatomic alignment. The odontoid is intact and the atlantoaxial articulation is within normal limits. Disc spaces: There is mild disc space narrowing at C3-4, the disc space level above the spine fusion in that C7-T1, the disc space level below the spine fusion. Apophyseal joints: Degenerative apophyseal joint disease is present bilaterally. Soft tissues: The prevertebral soft tissues are within normal limits. IMPRESSION: 1. Osteopenia with no acute osseous pathology. 2. Stable internal fixation with degenerative disc and degenerative joint disease. CT chest diagnostic w con CLINICAL HISTORY: fall TECHNIQUE: Multidetector row helical CT of the chest was performed with intravenous contrast. Coronal and sagittal reformations were obtained. Automated dose lowering techniques and/or adjustment according to patient size were utilized for this exam. Comparison: Comparison is made to CT chest 11/26/2020 FINDINGS: Lungs and pleura: Atelectasis versus scarring is seen in the dependent portions of the lungs. Heart and pericardium: Heart size is normal. No pericardial effusion. Vessels: Unremarkable. Mediastinum and raya: Subcentimeter lymph nodes are seen. Chest wall and lower neck: Unremarkable. Abdomen: For findings below the diaphragm, please refer to CT of the abdomen dated the same. Bones: Degenerative changes in the thoracic spine. Anterior cervical fixation hardware is seen. IMPRESSION: No acute abnormalities are seen. CT SCAN OF THE ABDOMEN AND PELVIS WITH IV CONTRAST CLINICAL HISTORY: Trauma. Fall. COMPARISON STUDY: Abdominal CT dated 11/26/2020. TECHNIQUE: Following the IV administration of 92 cc of Optiray 320, CT scan of the abdomen and pelvis is performed from the lung bases to the proximal femora. Images are reviewed in the axial, sagittal, and coronal planes. IV contrast was administered without complication. A dose lowering technique was utilized adhering to the principles of ALARA. FINDINGS: Lung bases: The heart is normal in size and without pericardial effusion. The lung bases are clear noting bibasilar scarring/atelectasis. There is no basilar pneumothorax. There is a tiny hiatal hernia. Liver: The contrast-enhanced liver is cirrhotic in morphology and heterogeneous in attenuation. There is nodularity of the hepatic surface contour. There is no intrahepatic biliary ductal dilatation. The hepatic veins and portal veins are patent. Gallbladder: Surgically absent noting clips in the gallbladder fossa. Spleen: Normal in size and attenuation. Pancreas: There are numerous parenchymal calcifications indicating chronic pancreatitis. There is mild glandular atrophy. The duct is normal in caliber. Adrenal glands: Unremarkable. Kidneys: The contrast enhanced kidneys demonstrate mild cortical atrophy and are without hydronephrosis. The kidneys enhance symmetrically. Abdominal vasculature: The abdominal aorta is normal in course and caliber noting moderate to advanced atherosclerotic calcification. Bowel: There is no bowel obstruction. The gastric mucosa appears thickened and hyperemic. The appendix is normal as visualized. Peritoneum: There is no intraperitoneal free air or abdominal ascites. Lymphadenopathy: None. Pelvic viscera: The bladder is distended but otherwise normal in appearance. The uterus is surgically absent. No adnexal lesion is seen. Skeletal structures: The skeletal structures are osteopenic. The lumbosacral spine, bony pelvis, and proximal femora appear intact. There is mild lumbosacral spondylosis. No lytic or blastic lesions are seen. IMPRESSION: 1. There is no evidence of solid organ injury in the abdomen or pelvis. 2. Cirrhotic liver morphology. 3. There is evidence of chronic pancreatitis. 4. Bladder distention. 5. Findings suggest gastritis. Clinical correlation will be required. 6. Additional findings as above. Medications Administered ER Medications Given: Mg sulphate 1g IV Banana bag x1 ECG Indication: weakness Rate (beats per minute): 73 Rhythm: normal sinus Findings: + other (low voltage QRS) Comparison ECG Date: from (November 21, 2021) Change: no significant change Code Status & VTE Plan Code Status Full VTE Prophylaxis Plan VTE Prophylaxis will be ordered: No PG Care Time/CCT Total # of Minutes Spent Total Time Spent with Patient: Total time spent is greater than 50% in coordination of care (as documented) at patient's floor/unit and/or counseling patient: Coding Level of Care Code INT OBSERVATION CARE 70M LVL 3 Diagnoses Hypomagnesemia E83.42 Alcohol intoxication F10.920 Complication of substance-induced condition: uncomplicated Frequent falls R29.6 Alcohol use disorder, moderate, dependence F10.20 Elevated LFTs R79.89 Depression F32.A COPD (chronic obstructive pulmonary disease) J44.9 Nonischemic cardiomyopathy I42.8 Liver cirrhosis K74.60 Gastritis K29.70 Scalp hematoma S00.03XA (1) Alcohol intoxication Complication of substance-induced condition: uncomplicated Qualified Code(s): F10.920 - Alcohol use, unspecified with intoxication, uncomplicated
--- NOTE | 2022-01-30 17:41 | Electrocardiogram Report ---
Test Reason : Blood Pressure : / mmHG Vent. Rate : 073 BPM Atrial Rate : 073 BPM P-R Int : 186 ms QRS Dur : 078 ms QT Int : 428 ms P-R-T Axes : 044 -23 035 degrees QTc Int : 471 ms Normal sinus rhythm Low voltage QRS Abnormal ECG When compared with ECG of 21-NOV-2021 15:45, HI interval has decreased Confirmed by Rafael Pantoja ([id number]) on 01/30/2022 5:41:32 PM Referred By: Confirmed By:Alec Pantoja
[2022-01-30 19:05] LABS: Amphetamines+Metham, Urine Neg (Neg); Barbiturates, Urine Neg (Neg); Benzodiazepine, Urine Pos (Neg); Cocaine, Urine Neg (Neg); MDMA (Ecstacy), Urine Neg (Neg); Methadone, Urine Neg (Neg); Opiate, Urine Neg (Neg); Phencyclidine, Urine Neg (Neg)
[2022-01-30] MEDS ORDERED: ACETAMINOPHEN 325 MG TAB PO PRN (20:41)
[2022-01-30] MEDS: THIAMINE HCL 500 MG in SODIUM CHLORIDE 0.9% 50 ML IV SCH (21:26)
[2022-01-30] MEDS: MAGNESIUM SULFATE / D5W 1 GM/100 ML BAG IV SCH ×2 (23:38→23:41)
[2022-01-31 05:43] LABS: Hematocrit (blood only) 33.1 % (37-47); Hemoglobin 10.7 g/dL (12.0-16.0); Mean Corpuscular Hgb Conc 32.3 g/dL (32-36); Mean Corpuscular Volume 89.7 fL (80-100); Mean Platelet Volume 8.7 fL (7.4-10.4); Platelet Count 132 K/uL (130-400); RDW Coefficient of Variation 19.5 % (11.5-14.5); RDW Standard Deviation 64.1 fL (36.4-46.3); Red Blood Count 3.69 M/uL (4.2-5.4); White Blood Count 2.11 K/uL (4.8-10.8)
[2022-01-31 05:45] LABS: INR 1.4 (0.9-1.1); Prothrombin Time 14.6 Seconds (9.0-12.0)
[2022-01-31 05:58] LABS: Albumin Globulin Ratio 1.2 (0.9-2); Albumin Level 3.4 gm/dl (3.4-5.0); BUN Creatinine Ratio 7.2 (10-20); Bilirubin,Total 0.7 mg/dl (0.2-1.0); Calcium 8.2 mg/dl (8.5-10.1); Creatinine Clr Calc Pharmacy 70.9 ml/min; Est GFR (African American) 87.6 ml/min; Est GFR (Non-African American) 75.6 ml/min; Globulin 2.8 gm/dl (2.5-4.0); Potassium 3.7 mmol/L (3.5-5.1); Total Protein 6.2 gm/dl (6.0-8.3)
[2022-01-31 06:08] LABS: Hypochromasia Present
[2022-01-31 06:09] LABS: ANC (manual) 0.87 K/uL (1.4-6.5); Basophils # (manual) 0.02 K/uL (0-0.2); Basophils % (manual) 0.9 %; Eosinophils # (manual) 0.15 K/uL (0-0.5); Eosinophils % (manual) 7.1 %; Lymphocytes % (manual) 42.8 %; Monocytes # (manual) 0.13 K/uL (0.11-0.59); Monocytes % (manual) 6.3 %; Myelocytes # (manual) 0.04 K/uL (0-0); Myelocytes % (manual) 1.8 %; Neutrophils # (manual) 0.87 K/uL (1.4-6.5); Neutrophils % (manual) 41.1 %
[2022-01-31] MEDS ORDERED: LORazepam 1 MG in SYRINGE 0.5 ML IV PRN (08:21)
[2022-01-31] MEDS ORDERED: VITAMIN B COMPLEX TAB PO SCH (09:00)
[2022-01-31] MEDS ORDERED: PANTOprazole 40 MG TAB PO SCH ×2 (09:00)
[2022-01-31] MEDS ORDERED: FOLIC ACID 1 MG TAB PO SCH (09:00)
[2022-01-31] MEDS ORDERED: ESCITALOPRAM OXALATE 10 MG TAB PO SCH (09:00)
[2022-01-31] MEDS ORDERED: NALTREXONE HCL 50 MG TAB PO SCH (09:00)
[2022-01-31] MEDS ORDERED: MAGNESIUM OXIDE 400 MG TAB PO SCH (09:00)
[2022-01-31] MEDS ORDERED: METOPROLOL SUCC 25MG EXT REL TAB PO SCH (09:00)
[2022-01-31] MEDS: THIAMINE HCL 500 MG in SODIUM CHLORIDE 0.9% 50 ML IV SCH (09:27)
--- NOTE | 2022-01-31 12:57 | Discharge Summary ---
Date of Service January 31, 2022 Admission HPI Per Admitting Provider Nury Rivas is a 61 year old female who presents to the ER due to recurrent falls. She fell twice this morning although unable to get a clear history from the patient how this happened. Initial fall was indoors and she thinks she tripped over herself and hit her head. Did not loose consciousness. She was feeling ok prior to falling without dizziness or lightheadedness. She then went outside to take the trash out and fell outside on the brush, again she feels she just tripped over something. She has had 8 falls in the last year which she blames on her prior subdural hematoma 6 years ago and 4-5 concussions since that time. She reports drinking alcohol on a daily basis, usually 3-6 [employer]. She drinks alcohol due to chronic pain that is not under control. She last drank this morning 1.5 beer cans. She does not drink liquor or wine. Difficult to get a history from patient what she has tried before in past to give up alcohol but never tried inpatient rehabilitation. She reports last trying to give up a year ago and had no alcohol withdrawal symptoms and never has when quitting. She reports taking aspirin 325mg PO QID due to chronic pain "all over" but mainly in her neck and back. She reports taking "all B vitamins known to man". In the ER ethyl alcohol level 300.6 mg/dL. Due to significant scalp hematoma, weakness, low magnesium, current alcohol intoxication, recurrent falls and not clear history she was referred to medicine for admission and ongoing management. Discharge Data Allergies Allergy/AdvReac Type Severity Reaction Status Date / Time gabapentin AdvReac Severe Confusion Verified 01/30/22 17:48 acetaminophen [From Tylenol] AdvReac Unknown CONTRAINDICATED Verified 01/30/22 17:48 DUE TO LIVER ISSUES ibuprofen AdvReac Unknown CONTRAINDICATED Verified 01/30/22 17:48 DUE TO LIVER ISSUES Consultations 01/30/22 15:59 ED Decision to Admit Stat Ordered Studies 01/30/22 12:58 CT abd pelvis IV con only Stat CT cervical spine wo con Stat CT chest diagnostic w con Stat CT head/brain wo con Stat Hospital Course (1) Frequent falls: Suspect related to alcohol intoxication with history of concussion Start IV thiamine 500mg TID although low suspicion of Wernicke's B12 level with AM labs On recent med change per patient is hydroxyzine therefore will hold this medication in case contributing to her worsening balance. PT eval Urine toxicology pending Monitor on telemetry for arrhythmia given unreliable history (2) Hypomagnesemia: Mg level 1.4 - Mg sulphate 1g IV, additional 2g IV now. Mg oxide 400mg PO daily. (3) Scalp hematoma: At risk of developing subdural. Would make sure patient is observed at home if discharged home tomorrow given history of this and significant scalp ecchymosis. Discussed avoiding aspirin and NSAIDs due to increased bleeding risk. Will defer VTE Prophylaxis. (4) Elevated LFTs: Suspect alcohol induced, will trend with AM labs to make sure not turning into acute alcoholic hepatitis. (5) Alcohol intoxication: Ethyl alcohol level 300.6 mg/dL on admission, no history of alcohol withdrawal per patient (6) Alcohol use disorder, moderate, dependence: Interested in possible inpatient treatment for this Continue naltrexone 100mg PO daily (7) Depression: Continue Lexapro 15mg PO daily (8) COPD (chronic obstructive pulmonary disease): Noted history of this but not on maintenance inhalers. No acute exacerbation suspected (9) Nonischemic cardiomyopathy: Noted history of this. No concern for heart failure at this time. (10) Liver cirrhosis: Follow up with gastroenterology as outpatient. Prior history of hepatitis C. Ammonia - 29 MELD - 11, 6.0% 3 month mortality (11) Gastritis: increase omeprazole to bid counseled on EtOH cessation, avoidance of NSAIDs, ASA VTE Prophylaxis - deferred chemical prophylaxis due to scalp hematoma and risk of subdural, no SCDs due to alcohol intoxication adn risk of falls Diet - regular Disposition - observation status on med/tele Discharge Plan Discharge Items Patient Disposition: Home - Self-Care Reason For Visit: FALL Discharge Diagnosis: Fall, head contusion with hematoma, Alcohol Use Disorder with alcohol intox ication, alcoholic hepatitis, gastritis Condition on Discharge: Fair Activity: As commented below Lifting: No more than 5 pounds Bathing: No limitations Exercise/Sports: Wait until after follow-up appointment Exercise Comment: only perform light activity,no heavy exertion Driving/Machine Use: No driving Non-emergency contact: Primary Care Provider, Light Equipment Operator and Oncologist Call non-emergency contact if: you have any medication questions, your symptoms worsen and your pain is not controlled Follow-up/Referrals: Cesar Restrepo, DO [Physician] - (Please schedule a new patient appointment for liver cirrhosis) Abdon Ibrahim MD [Surgeon] - (Please schedule a follow up appointment for our low blood counts) Dorothy Valdes CRNP [Primary Care Provider] - (Please follow up within 1-2 weeks.) Diet: Low Sodium (2gm) Addtl Attending Provider Instructions: You had a fall with a facial contusion likely secondary to alcohol intoxication. You have some symptoms of concussion but there is no evidence of bleeding in your brain. Please refrain from heavy activity, both mentally and physically until your headache and symptoms are resolved. You can take low doses of Tylenol as needed for headache. It is extremely important to your health that you immediately quit drinking all alcohol as we discussed. You do have liver failure called cirrhosis and this will only worsen with time especially with ongoing alcohol use. If you stop drinking alcohol, watch your sodium and fluid intake (limit them both), and begin follow up with a Light Equipment Operator, you can manage this condition over time. Your CT scan of the abdomen did show you have inflammation of the stomach. This is likely secondary to your heavy aspirin use and can also be caused by excessive alcohol intake and ibuprofen use. Please STOP using ibuprofen, aspirin, and all alcohol as above. You should increase your home omeprazole dose to twice a day to help your stomach heal and follow up with a Light Equipment Operator. Follow up with your PCP within 1-2 weeks. Pending Studies at Discharge: No Stand-Alone Forms: My [facility] Medications and DC Order Prescriptions: New acetaminophen 325 mg Tablet 650 mg PO Q8H PRN (Reason: pain) Qty: 30 RF: 0 magnesium oxide 400 mg (241.3 mg magnesium) Tablet 400 mg PO QAM Qty: 30 RF: 0 Continued vitamin B complex Tablet 1 tab PO QAM RF: 0 metoprolol succinate 25 mg tablet extended release 24 hr 25 mg PO DAILY RF: 0 celecoxib 200 mg capsule 200 mg PO DAILY RF: 0 rizatriptan 10 mg tablet,disintegrating 10 mg PO DIRECTED MDD 3 DOSES/24 HOURS PRN (Reason: Migraine Headache) RF: 0 naltrexone 50 mg tablet 100 mg PO DAILY RF: 0 escitalopram oxalate 10 mg tablet 15 mg PO DAILY RF: 0 folic acid 1 mg Tablet 1 mg PO QAM Qty: 30 RF: 0 thiamine HCl (vitamin B1) [Vitamin B-1] 100 mg Tablet 100 mg PO QAM Qty: 30 RF: 0 Changed omeprazole 20 mg capsule,delayed release(DR/EC) 25 mg PO BID Qty: 60 RF: 0 Discontinued hydroxyzine HCl 10 mg tablet 10 mg PO TID PRN (Reason: Anxiety) RF: 0 ibuprofen 200 mg Tablet 400 mg PO Q6H PRN (Reason: Pain) RF: 0 Discharge Orders: Discharge Order (Routine); Ordered 01/31/22 Ordered By: Anh Paez Admission Data Admit Date/Time: 01/30/22 17:35 Attending Provider: Anh Paez Admit Provider: Jose Prieto Primary Care Provider: Dorothy Valdes Other Providers: Jose Prieto Coding Diagnoses Frequent falls R29.6 Hypomagnesemia E83.42 Scalp hematoma S00.03XA Elevated LFTs R79.89 Alcohol intoxication F10.920 Complication of substance-induced condition: uncomplicated Alcohol use disorder, moderate, dependence F10.20 Depression F32.A COPD (chronic obstructive pulmonary disease) J44.9 Nonischemic cardiomyopathy I42.8 Liver cirrhosis K74.60 Gastritis K29.70
== END 2022-01-31 14:11 | disposition home or self-care (01) ==
LOC: ED 11:57 → INTOOBSV 17:35 → 2N 17:35 → SUATTDRO 17:35 → 2N 20:07

== ENCOUNTER 2022-03-11 13:16 | Inpatient (IN) ==
[2022-03-11] MEDS ORDERED: MULTI-VITAMIN INFUSION 10 ML, THIAMINE HCL 100 MG, FOLIC ACID 1 MG in SODIUM CHLORIDE 0... IV ONE (14:05)
--- NOTE | 2022-03-11 14:20 | Emergency Department Note ---
Impression & Plan Alcoholism, Hypomagnesemia, History of alcohol withdrawal delirium ED Provider Note NAME: JUHI WHITFIELD AGE: 62 SEX: F ARRIVES VIA: Walk-In INFORMANT: Patient, partner ED PROVIDER(S): Keenan Churchill MD CHIEF COMPLAINT: SOB, Shakiness, new anxiety/depression medications PLAN: Disposition: Admit MEDICAL DECISION MAKING: The patient is a pleasant 62-year-old woman with a past medical history of cirrhosis, alcohol use/alcoholism, history of prior TBI who with history of bur hole surgery, COPD, chronic pancreatitis, nonischemic cardiomyopathy, seizure disorder, chronic hyponatremia who presents to the emergency department, accompanied by her partner for evaluation of increased restlessness and tremulousness from her baseline of similar symptoms after having medication management for anxiety/depression where she was trialed on Abilify on but after a single dose causing increased tremors was discontinued and then was started on BuSpar in addition to increasing her dose on her Lexapro. They report they contacted [place] who is managing her medications and was referred to emergency department for possible serotonin syndrome. On arrival, the patient is no acute distress, calm, comfortable with normal vital signs. She appears clinically dry. Pupils are midrange bilaterally and reactive, appropriate to lighting in the room. Skin is warm and dry. Reflexes within normal limits. There is no clonus. EKG without overt acute ischemia. Chest x-ray negative for acute cardiopulmonary process. WBC, H/H similar to prior range of values. Platelets within normal limits. Chemistry without metabolic acidosis. Calcium 7.9 and magnesium 1.7 similar to prior and electrolytes otherwise without significant abnormality. High-sen sitivity troponin 5.2, within normal limits. LFTs without significant abnormality. Lipase is not elevated. TSH within normal limits. Medical alcohol was elevated at 369. Findings were reviewed the patient and her partner at the bedside. Given her significantly elevated alcohol level and the description of symptoms which include gait instability as well as waxing and waning anxiety and tremulousness it seems likely that her symptoms are due to alcohol withdrawal with symptoms that can fluctuate depending on her blood alcohol level. Given her reassuring examination her symptoms certainly reknot due to serotonin syndrome and less likely to be due to her recent medication changes. Given concern for risk of severe alcohol withdrawal and the fact that the patient did acknowledge that she is interested in proceeding with detox completely including placement into inpatient detox center following stabilization we did agree to proceed with plan for admission. Case was discussed with Dr. Duran, [facility] [place] hospitalist, who will evaluate the patient for admission. Triage Nursing notes reviewed and agree them. Prior medical records reviewed Vital Signs: reviewed and remarkable for no significant abnormalities Differential diagnosis: Overdose, toxicologic, infection, hypoglycemia, electrolyte abnormalities, cardiac sources, intracerebral event, neurologic, trauma, as well as other pathologies. ER treatment provided: See below. Diagnostics interpreted by me: ECG: Sinus rhythm with PSVC's, 90 bpm, no overt ST elevation or depression, QTC 540, QRS 80. Cardiac Monitoring: An order for continuous cardiac monitoring was placed and demonstrated Sinus rhythm with PSVC's, 90 bpm. Laboratory studies: See below Imaging studies: See below Consultation(s): Dr. Duran [facility] [place] hospitalist. HPI: The patient is a pleasant 62-year-old woman with a past medical history of cirrhosis, alcohol use/alcoholism, history of prior TBI who with history of bur hole surgery, COPD, chronic pancreatitis, nonischemic cardiomyopathy, seizure disorder, chronic hyponatremia who presents to the emergency department, accompanied by her partner for evaluation of increased restlessness and tremulousness from her baseline of similar symptoms after having medication management for anxiety/depression where she was trialed on Abilify on but after a single dose causing increased tremors was discontinued and then was started on BuSpar in addition to increasing her dose on her Lexapro. They report they contacted [place] who is managing her medications and was referred to emergency department for possible serotonin syndrome. ROS: See above HPI for pertinent positives & negatives. A total of 10 systems reviewed and were otherwise negative. VITALS:See Below PHYSICAL EXAMINATION: GENERAL: Awake, alert, fatigued but well-appearing, in no distress HENT: Normocephalic, atraumatic. Oropharynx with dry mucous membranes and otherwise unremarkable. EYES: Normal conjunctiva. Sclera non-icteric. NECK: Supple. No nuchal rigidity. FROM. No JVD. RESPIRATORY: Clear to auscultation. CARDIAC: Regular rate, normal rhythm. Extremities warm and well perfused. Pulses equal. ABDOMEN: Soft, non-distended. No tenderness to palpation. No rebound or guarding. No masses. RECTAL: Deferred. MUSCULOSKELETAL: Chest examination reveals no tenderness. The back is symmetrical on inspection without obvious abnormality. There is no CVA tenderness to palpation. No joint edema. LOWER EXTREMITIES: Calves are equal size bilaterally and non-tender. No edema. No discoloration. NEURO: Normal sensorium. No sensory or motor deficits noted. 5/5 strength and SILT x 4 extremities. Intact [id number]. Normal reflexes and no clonus. SKIN: No rash or jaundice noted. Keenan Churchill MD Past Med/Surg History Medical History Alcohol intoxication Alcoholism Chronic hyponatremia Chronic pancreatitis COPD (chronic obstructive pulmonary disease) Displacement 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 (08/22/11) History of craniotomy Due to subdural hematoma from fall History of tobacco abuse Nonischemic cardiomyopathy Seizure disorder (05/16/12) Severe pulmonary arterial systolic hypertension Uterine leiomyoma (07/18/11) Surgical History History of arthroscopic procedure on shoulder History of onel hole surgery History of carpal tunnel surgery History of cholecystectomy History of hysterectomy S/P cervical spinal fusion Family History Mother Hypertension Social History Smoking Status: Never smoker Tobacco Type: Cigarettes Second Hand Exposure: No; Hx Alcohol Use: Yes Alcohol type: beer Alcohol Intake Frequency Comment: 5 beers/day Hx Substance Use: No Preferred Language: [place] Communication Ability: Effective Medical Center Director Required: No Beliefs That Will Affect Care: None marital status: Single Current Living Situation: Spouse Current Living Situation Comment: pt did not answer the question clearly How many Children do You have: 0 Feels Safe at Home: Yes Assistive Devices: Glasses and Walker Allergies Allergies Allergy/AdvReac Type Severity Reaction Status Date / Time gabapentin AdvReac Severe Confusion Verified 03/11/22 17:14 acetaminophen [From Tylenol] AdvReac Unknown CONTRAINDICATED Verified 03/11/22 17:14 DUE TO LIVER ISSUES ibuprofen AdvReac Unknown CONTRAINDICATED Verified 03/11/22 17:14 DUE TO LIVER ISSUES Home Meds Home Medications Medication Instructions Recorded Confirmed vitamin B complex 1 tab PO QAM 11/25/20 03/11/22 celecoxib 200 mg capsule 200 mg PO DAILY 11/21/21 03/11/22 metoprolol succinate 25 mg 25 mg PO DAILY 11/21/21 03/11/22 tablet,extended release 24 hr rizatriptan 10 mg disintegrating 10 mg PO DIRECTED PRN Migraine 11/21/21 03/11/22 tablet Headache naltrexone 50 mg tablet 100 mg PO DAILY 01/30/22 03/11/22 aripiprazole 5 mg tablet 5 mg PO DAILY 03/11/22 03/11/22 buspirone 15 mg tablet 15 mg PO BID 03/11/22 03/11/22 escitalopram oxalate 20 mg tablet 20 mg PO DAILY 03/11/22 03/11/22 meloxicam 15 mg tablet 15 mg PO DAILY 03/11/22 03/11/22 Previous Rx's Medication Instructions Recorded folic acid 1 mg tablet 1 mg PO QAM #30 tabs 06/28/21 thiamine HCl (vitamin B1) 100 mg 100 mg PO QAM #30 tabs 06/28/21 tablet (Vitamin B-1) acetaminophen 325 mg tablet 650 mg PO Q8H PRN pain #30 tabs 01/31/22 magnesium oxide 400 mg (241.3 mg 400 mg PO QAM #30 tabs 01/31/22 magnesium) tablet omeprazole 20 mg capsule,delayed 25 mg PO BID #60 caps 01/31/22 release Results & Data (ED) Vital Signs Vital Signs - 24 hr 03/11/22 13:20 03/11/22 14:50 03/11/22 14:14 Temperature 36.8 C Temperature Source Temporal Artery Scan Pulse Rate 74 74 Pulse Rate from SpO2 Sensor 75 Respiratory Rate 20 16 Respiratory Effort / Characteristics Non-Labored Spontaneous Respiratory Depth Normal Respiratory Pattern Regular Blood Pressure 105/68 Blood Pressure Mean 80 Pulse Oximetry 96 95 96 Oxygen Delivery Method Room Air Room Air Sepsis Recent Fever Within 48 Hours No Sepsis New/Unexplained Change in Mental Status No Sepsis Action Taken by Nursing No Action Required 03/11/22 14:30 03/11/22 14:53 03/11/22 14:53 Temperature Temperature Source Pulse Rate 74 75 Pulse Rate from SpO2 Sensor 74 75 Respiratory Rate 20 18 Respiratory Effort / Characteristics Respiratory Depth Respiratory Pattern Blood Pressure 92/75 L Blood Pressure Mean 80 Pulse Oximetry 95 95 Oxygen Delivery Method Sepsis Recent Fever Within 48 Hours Sepsis New/Unexplained Change in Mental Status Sepsis Action Taken by Nursing 03/11/22 14:59 03/11/22 15:00 03/11/22 15:20 Temperature Temperature Source Pulse Rate 71 Pulse Rate from SpO2 Sensor 75 Respiratory Rate 16 Respiratory Effort / Characteristics Respiratory Depth Respiratory Pattern Blood Pressure 109/64 Blood Pressure Mean 79 Pulse Oximetry 94 93 Oxygen Delivery Method Room Air Sepsis Recent Fever Within 48 Hours Sepsis New/Unexplained Change in Mental Status Sepsis Action Taken by Nursing 03/11/22 15:30 03/11/22 16:00 03/11/22 16:00 Temperature Temperature Source Pulse Rate 74 Pulse Rate from SpO2 Sensor Respiratory Rate 18 Respiratory Effort / Characteristics Respiratory Depth Respiratory Pattern Blood Pressure 98/61 L 103/65 Blood Pressure Mean 73 77 Pulse Oximetry Oxygen Delivery Method Sepsis Recent Fever Within 48 Hours Sepsis New/Unexplained Change in Mental Status Sepsis Action Taken by Nursing 03/11/22 16:30 03/11/22 16:30 03/11/22 17:27 Temperature Temperature Source Pulse Rate 72 77 Pulse Rate from SpO2 Sensor Respiratory Rate 16 14 Respiratory Effort / Characteristics Respiratory Depth Respiratory Pattern Blood Pressure 104/65 Blood Pressure Mean 78 Pulse Oximetry Oxygen Delivery Method Sepsis Recent Fever Within 48 Hours Sepsis New/Unexplained Change in Mental Status Sepsis Action Taken by Nursing 03/11/22 17:30 03/11/22 18:00 Temperature Temperature Source Pulse Rate 74 74 Pulse Rate from SpO2 Sensor Respiratory Rate 16 22 Respiratory Effort / Characteristics Respiratory Depth Respiratory Pattern Blood Pressure Blood Pressure Mean Pulse Oximetry Oxygen Delivery Method Sepsis Recent Fever Within 48 Hours Sepsis New/Unexplained Change in Mental Status Sepsis Action Taken by Nursing Laboratory Data Attestation: I reviewed the patient's lab results. Result diagrams: 03/11/22 13:58 03/11/22 13:58 Lab Results 03/11/22 03/11/22 03/11/22 Range/Units 13:58 13:58 13:58 WBC 3.08 L (4.8-10.8) K/ul RBC 3.72 L (3.93-5.22) M/uL Hgb 10.4 L (12.0-16.0) g/dl Hct 32.4 L (34.1-44.9) % MCV 87.1 (80.0-100.0) fL MCH 28.0 (25.0-34.0) pg MCHC 32.1 (32.0-36.0) g/dL RDW Std Deviation 57.9 H (36.4-46.3) fL RDW Coeff of [place] 18.2 H (11.5-14.5) % Plt Count 145 (130-400) K/uL MPV 8.9 L (9.4-12.3) fL Immature Gran % (Auto) 0.0 % Neut % (Auto) 53.3 % Lymph % (Auto) 28.9 % Payne % (Auto) 15.3 % Eos % (Auto) 0.6 % Baso % (Auto) 1.9 % Neut # (Auto) 1.64 (1.4-6.5) K/uL Lymph # (Auto) 0.89 L (1.2-3.4) K/uL Payne # (Auto) 0.47 (0.24-0.82) K/uL Eos # (Auto) 0.02 (0-0.50) K/uL Baso # (Auto) 0.06 (0-0.2) K/uL Immature Gran # (Auto) 0.00 (0.00-0.02) K/uL Sodium 136 (136-145) mmol/L Potassium 3.5 (3.5-5.1) mmol/L Chloride 102 (98-107) mmol/L Carbon Dioxide 24 (21-32) mmol/L Anion Gap 10 (3-11) BUN 8 (6-23) mg/dl Creatinine 1.01 (0.6-1.2) mg/dl Est Cr Clr Drug Dosing 53.4 ml/min Est GFR ( Amer) 68.6 ml/min Est GFR (Non-Af Amer) 59.2 ml/min BUN/Creatinine Ratio 7.9 L (10-20) Glucose 103 H (70-99(Fasting)) mg/dl Calcium 7.9 L (8.5-10.1) mg/dl Phosphorus 4.1 (2.5-4.9) mg/dl Magnesium 1.7 (1.7-2.4) mg/dl Total Bilirubin 0.4 (0.2-1.0) mg/dl AST 61 H (13-39) U/L ALT 19 (7-52) U/L Alkaline Phosphatase 77 (34-104) U/L Troponin I High Sens 5.2 (0-14) pg/ml Total Protein 7.4 (6.0-8.3) gm/dl Albumin 4.0 (3.4-5.0) gm/dl Globulin 3.4 (2.5-4.0) gm/dl Albumin/Globulin Ratio 1.2 (0.9-2) Lipase 61 (11-82) U/L TSH 0.679 (0.300-4.500) uIu/ml Urine Color Urine Appearance (Clear) Urine pH (4.5-7.5) Ur Specific [place] (1.000-1.030) Urine Protein (Negative) Urine Glucose (UA) (Negative) Urine Ketones (Negative) Urine Blood (Negative) Urine Nitrite (Negative) Urine Bilirubin (Negative) Urine Urobilinogen (Negative) Ur Leukocyte Esterase (Negative) Urine Opiates Screen (Neg) Ur Methadone, Qual (Neg) Urine Barbiturates (Neg) Ur Phencyclidine (PCP) (Neg) U Amphetamin/Meth Scrn (Neg) MDMA (Ecstasy) Screen (Neg) U Benzodiazepines Scrn (Neg) Ur Cocaine Metabolite (Neg) U Marijuana (THC) Screen (Neg) Ethyl Alcohol mg/dL (<10.0) mg/dl SARS-CoV-2, RNA, NAAT (NEGATIVE) 03/11/22 03/11/22 03/11/22 Range/Units 13:58 14:40 14:46 WBC (4.8-10.8) K/ul RBC (3.93-5.22) M/uL Hgb (12.0-16.0) g/dl Hct (34.1-44.9) % MCV (80.0-100.0) fL MCH (25.0-34.0) pg MCHC (32.0-36.0) g/dL RDW Std Deviation (36.4-46.3) fL RDW Coeff of [place] (11.5-14.5) % Plt Count (130-400) K/uL MPV (9.4-12.3) fL Immature Gran % (Auto) % Neut % (Auto) % Lymph % (Auto) % Payne % (Auto) % Eos % (Auto) % Baso % (Auto) % Neut # (Auto) (1.4-6.5) K/uL Lymph # (Auto) (1.2-3.4) K/uL Payne # (Auto) (0.24-0.82) K/uL Eos # (Auto) (0-0.50) K/uL Baso # (Auto) (0-0.2) K/uL Immature Gran # (Auto) (0.00-0.02) K/uL Sodium (136-145) mmol/L Potassium (3.5-5.1) mmol/L Chloride (98-107) mmol/L Carbon Dioxide (21-32) mmol/L Anion Gap (3-11) BUN (6-23) mg/dl Creatinine (0.6-1.2) mg/dl Est Cr Clr Drug Dosing ml/min Est GFR ( Amer) ml/min Est GFR (Non-Af Amer) ml/min BUN/Creatinine Ratio (10-20) Glucose (70-99(Fasting)) mg/dl Calcium (8.5-10.1) mg/dl Phosphorus (2.5-4.9) mg/dl Magnesium (1.7-2.4) mg/dl Total Bilirubin (0.2-1.0) mg/dl AST (13-39) U/L ALT (7-52) U/L Alkaline Phosphatase (34-104) U/L Troponin I High Sens (0-14) pg/ml Total Protein (6.0-8.3) gm/dl Albumin (3.4-5.0) gm/dl Globulin (2.5-4.0) gm/dl Albumin/Globulin Ratio (0.9-2) Lipase (11-82) U/L TSH (0.300-4.500) uIu/ml Urine Color Yellow Urine Appearance Clear (Clear) Urine pH 5.5 (4.5-7.5) Ur Specific [place] 1.009 (1.000-1.030) Urine Protein Negative (Negative) Urine Glucose (UA) Negative (Negative) Urine Ketones Negative (Negative) Urine Blood Negative (Negative) Urine Nitrite Negative (Negative) Urine Bilirubin Negative (Negative) Urine Urobilinogen Negative (Negative) Ur Leukocyte Esterase Negative (Negative) Urine Opiates Screen Neg (Neg) Ur Methadone, Qual Neg (Neg) Urine Barbiturates Neg (Neg) Ur Phencyclidine (PCP) Neg (Neg) U Amphetamin/Meth Scrn Neg (Neg) MDMA (Ecstasy) Screen Neg (Neg) U Benzodiazepines Scrn Pos H (Neg) Ur Cocaine Metabolite Neg (Neg) U Marijuana (THC) Screen Neg (Neg) Ethyl Alcohol mg/dL 369.3 H (<10.0) mg/dl SARS-CoV-2, RNA, NAAT (NEGATIVE) 03/11/22 Range/Units 17:43 WBC (4.8-10.8) K/ul RBC (3.93-5.22) M/uL Hgb (12.0-16.0) g/dl Hct (34.1-44.9) % MCV (80.0-100.0) fL MCH (25.0-34.0) pg MCHC (32.0-36.0) g/dL RDW Std Deviation (36.4-46.3) fL RDW Coeff of [place] (11.5-14.5) % Plt Count (130-400) K/uL MPV (9.4-12.3) fL Immature Gran % (Auto) % Neut % (Auto) % Lymph % (Auto) % Payne % (Auto) % Eos % (Auto) % Baso % (Auto) % Neut # (Auto) (1.4-6.5) K/uL Lymph # (Auto) (1.2-3.4) K/uL Payne # (Auto) (0.24-0.82) K/uL Eos # (Auto) (0-0.50) K/uL Baso # (Auto) (0-0.2) K/uL Immature Gran # (Auto) (0.00-0.02) K/uL Sodium (136-145) mmol/L Potassium (3.5-5.1) mmol/L Chloride (98-107) mmol/L Carbon Dioxide (21-32) mmol/L Anion Gap (3-11) BUN (6-23) mg/dl Creatinine (0.6-1.2) mg/dl Est Cr Clr Drug Dosing ml/min Est GFR ( Amer) ml/min Est GFR (Non-Af Amer) ml/min BUN/Creatinine Ratio (10-20) Glucose (70-99(Fasting)) mg/dl Calcium (8.5-10.1) mg/dl Phosphorus (2.5-4.9) mg/dl Magnesium (1.7-2.4) mg/dl Total Bilirubin (0.2-1.0) mg/dl AST (13-39) U/L ALT (7-52) U/L Alkaline Phosphatase (34-104) U/L Troponin I High Sens (0-14) pg/ml Total Protein (6.0-8.3) gm/dl Albumin (3.4-5.0) gm/dl Globulin (2.5-4.0) gm/dl Albumin/Globulin Ratio (0.9-2) Lipase (11-82) U/L TSH (0.300-4.500) uIu/ml Urine Color Urine Appearance (Clear) Urine pH (4.5-7.5) Ur Specific [place] (1.000-1.030) Urine Protein (Negative) Urine Glucose (UA) (Negative) Urine Ketones (Negative) Urine Blood (Negative) Urine Nitrite (Negative) Urine Bilirubin (Negative) Urine Urobilinogen (Negative) Ur Leukocyte Esterase (Negative) Urine Opiates Screen (Neg) Ur Methadone, Qual (Neg) Urine Barbiturates (Neg) Ur Phencyclidine (PCP) (Neg) U Amphetamin/Meth Scrn (Neg) MDMA (Ecstasy) Screen (Neg) U Benzodiazepines Scrn (Neg) Ur Cocaine Metabolite (Neg) U Marijuana (THC) Screen (Neg) Ethyl Alcohol mg/dL (<10.0) mg/dl SARS-CoV-2, RNA, NAAT NEGATIVE (NEGATIVE) Administered Medications Discontinued Medications Multivitamins 10 ml/ Thiamine HCl 100 mg/ Folic Acid 1 mg/Sodium Chloride 1,011.2 mls @ 1,011.2 mls/hr IV .Q1H ONE Stop: 03/11/22 15:04 Last Infusion: 03/11/22 15:49 Dose: 0 mls/hr Documented By: Admin: 03/11/22 14:29 Dose: 1,011.2 mls/hr Documented By: ROGER Magnesium Sulfate/Dextrose (Magnesium Sulfate / D5w) 1 gm in 100 mls @ 100 mls/hr IV NOW STA Stop: 03/11/22 18:49 Last Infusion: 03/11/22 19:59 Dose: 0 mls/hr Documented By: Admin: 03/11/22 18:37 Dose: 100 mls/hr Documented By: ALEXANDER Imaging Data Radiologist's Impression: Chest X-Ray 03/11/22 14:05 XR chest 1V portable CLINICAL HISTORY: Chest Pain. COMPARISON STUDY: 01/30/2022 TECHNIQUE: 1 view of the chest FINDINGS: Single frontal view of the chest demonstrates the cardiomediastinal silhouette to be within normal limits. The lungs are clear of alveolar opacities. There is no evidence for pleural effusion. There is no evidence for vascular congestion. There is no acute osseous pathology. IMPRESSION: 1. No acute cardiopulmonary disease. ACT 112: Negative or not required by law. Electronically signed by: Shreyas Villaseñor M.D. 03/11/2022 2:26 PM Discharge Plan Visit Data Chief Complaint: Shortness of Breath/Dyspnea Stated Complaint: REACTION TO MEDICATION, DIZZINESS, TREMBLING, SOB ED Provider: Keenan Churchill Discharge Problem: Alcoholism, Hypomagnesemia, History of alcohol withdrawal delirium
[2022-03-11 14:22] LABS: Basophils # (auto) 0.06 K/uL (0-0.2); Basophils % (auto) 1.9 %; Eosinophils # (auto) 0.02 K/uL (0-0.50); Eosinophils % (auto) 0.6 %; Hematocrit (blood only) 32.4 % (34.1-44.9); Hemoglobin 10.4 g/dl (12.0-16.0); Lymphocytes # (auto) 0.89 K/uL (1.2-3.4); Lymphocytes % (auto) 28.9 %; Mean Corpuscular Hgb Conc 32.1 g/dL (32.0-36.0); Mean Corpuscular Volume 87.1 fL (80.0-100.0); Mean Platelet Volume 8.9 fL (9.4-12.3); Monocytes # (auto) 0.47 K/uL (0.24-0.82); Monocytes % (auto) 15.3 %; Neutrophils # (auto) 1.64 K/uL (1.4-6.5); Neutrophils % (auto) 53.3 %; Platelet Count 145 K/uL (130-400); RDW Coefficient of Variation 18.2 % (11.5-14.5); RDW Standard Deviation 57.9 fL (36.4-46.3); Red Blood Count 3.72 M/uL (3.93-5.22); White Blood Count 3.08 K/ul (4.8-10.8)
--- NOTE | 2022-03-11 14:28 | XRay Report ---
XR chest 1V portable CLINICAL HISTORY: Chest Pain. COMPARISON STUDY: 01/30/2022 TECHNIQUE: 1 view of the chest FINDINGS: Single frontal view of the chest demonstrates the cardiomediastinal silhouette to be within normal li mits. The lungs are clear of alveolar opacities. There is no evidence for pleural effusion. There is no evidence for vascular congestion. There is no acute osseous pathology. IMPRESSION: 1. No acute cardiopulmonary disease. ACT 112: Negative or not required by law. Electronically signed by: Shreyas Villaseñor M.D. 03/11/2022 2:26 PM
[2022-03-11 14:45] LABS: Albumin Globulin Ratio 1.2 (0.9-2); BUN Creatinine Ratio 7.9 (10-20); Bilirubin,Total 0.4 mg/dl (0.2-1.0); Calcium 7.9 mg/dl (8.5-10.1); Creatinine Clr Calc Pharmacy 53.4 ml/min; Est GFR (African American) 68.6 ml/min; Est GFR (Non-African American) 59.2 ml/min; Globulin 3.4 gm/dl (2.5-4.0); Magnesium 1.7 mg/dl (1.7-2.4); Phosphorus 4.1 mg/dl (2.5-4.9); Potassium 3.5 mmol/L (3.5-5.1); Total Protein 7.4 gm/dl (6.0-8.3)
[2022-03-11 14:48] LABS: Troponin I High Sensitivity 5.2 pg/ml (0-14)
--- NOTE | 2022-03-11 14:53 | Electrocardiogram Report ---
Test Reason : Blood Pressure : / mmHG Vent. Rate : 090 BPM Atrial Rate : 071 BPM P-R Int : 200 ms QRS Dur : 080 ms QT Int : 442 ms P-R-T Axes : 009 009 029 degrees QTc Int : 540 ms Poor data quality, interpretation may be adversely affected Sinus rhythm Low voltage QRS Borderline ECG When compared with ECG of 30-JAN-2022 13:23, QT has lengthened Confirmed by Johnny Santiago ([id number]) on 03/11/2022 2:52:51 PM Referred By: REFERRED SELF Confirmed By:Johnny Santiago
[2022-03-11 15:14] LABS: Appearance Urine Clear (Clear); Bilirubin Urine Negative (Negative); Blood Urine Negative (Negative); Color Urine Yellow; Glucose Urine UA Negative (Negative); Ketones Urine Negative (Negative); Leukocyte Esterase Urine Negative (Negative); Nitrite Urine Negative (Negative); Protein Urine Negative (Negative); Specific Gravity Urine 1.009 (1.000-1.030); Urobilinogen Urine Negative (Negative); pH Urine 5.5 (4.5-7.5)
[2022-03-11] MEDS ORDERED: MAGNESIUM SULFATE / D5W 1 GM/100 ML BAG IV STA (17:50)
--- NOTE | 2022-03-11 18:45 | History & Physical Report ---
Date of Service March 11, 2022 Assessment & Plan (1) Alcohol intoxication: Plan: Patient comes in for tremors and balance instability that resolve with alcohol consumption - she reports that she would like to stop and is willing to stay now for detox - will start on Librium and Ativan- if she stays consider transitioning to phenobarb - Currently without sympotms as she has ETHO level of 369.3 - Thiamine 300mg IV daily - Folate 1mg PO daily - Ringers overnight - Psych consultation (2) Liver cirrhosis: Plan: History of Hepatitis C - previously followed with GI - LFTs in am - INR in am (3) Elevated LFTs: Plan: AST 61 ALT 19 llikely secondary to 1 & 2 (4) Frequent falls: Plan: Secondary to alchol misuse as well as chronic pain - PT/OT consultation (5) Depression: Plan: Continue her escitalopram- have room to increase - hold her BuSpar and Abilify (6) Chronic pain disorder: Plan: She reports that she takes 2 324 mg aspirin every 4-6 hours for pain - neck and hip pain - history of cervical fusion, arthroscopy of shoulder - could consider adding gabapentin as well as this may help her withdrawl - Continue Celebrex with BID PPI (7) Hypomagnesemia: Plan: Replete (8) COPD (chronic obstructive pulmonary disease): Plan: HX of without any inhalers of home and no PFTS recently - smattering of mention throughout chart unsure of this diagnosis (9) Nonischemic cardiomyopathy: Plan: Chronic problem without evidence of acute exacerbation - continue with metoprolol (10) History of craniotomy: Plan: Secondary to falls - will hold on chemoprophylaxis of VTE until not intoxicated History of Present Illness Primary Care Provider: Dorothy Valdes 62 YOF with medical history of: SDH, Alcohol use disorder, chronic pain, depression, NICM, Hepatitis C, Gastritis. Patient comes to the EMD today at the direction of her PCP/[facility] for concern of serotonin syndrome. Patient reports that she woke up this morning "shaking all over and bouncing off the johnson". This started when she woke up and she took her 2 new prescriptions with a beer. Her symptoms stopped around 0830. Patient continued to drink beer this morning until coming to the EMD. The patient reports that she was recently started on BuSpar as well Abilify and she does not want to take these anymore because of her shaking. Patient endorses that she drinks 6-12 beers per day (anderson light) and does this every day. She reports that she does wish to stop drinking and is willing to be admitted for such. She understands that her symptoms are likely related to her alcohol use as they stop when she drinks. Patient has a curent ETOH level of 369 and thinks her last drink was around 1130 this morning. Patient will be admitted, placed on CIWA, given Thiamine and Folate. Will use Ativan and Librium for now versus Phenobarb as she is likely high risk for AMA leave. Will hold her Naltrexone as she is obviously continuing to drink. COVID test on admission is: NEGATIVE Allergies Allergy/AdvReac Type Severity Reaction Status Date / Time gabapentin AdvReac Severe Confusion Verified 03/11/22 17:14 acetaminophen [From Tylenol] AdvReac Unknown CONTRAINDICATED Verified 03/11/22 17:14 DUE TO LIVER ISSUES ibuprofen AdvReac Unknown CONTRAINDICATED Verified 03/11/22 17:14 DUE TO LIVER ISSUES Home Medications Medication Instructions Recorded Confirmed Type vitamin B complex 1 tab PO QAM 11/25/20 03/11/22 History folic acid 1 mg tablet 1 mg PO QAM #30 tabs 06/28/21 03/11/22 Rx thiamine HCl (vitamin B1) 100 mg 100 mg PO QAM #30 tabs 06/28/21 03/11/22 Rx tablet (Vitamin B-1) celecoxib 200 mg capsule 200 mg PO DAILY 11/21/21 03/11/22 History metoprolol succinate 25 mg 25 mg PO DAILY 11/21/21 03/11/22 History tablet,extended release 24 hr rizatriptan 10 mg disintegrating 10 mg PO DIRECTED PRN Migraine 11/21/21 03/11/22 History tablet Headache naltrexone 50 mg tablet 100 mg PO DAILY 01/30/22 03/11/22 History acetaminophen 325 mg tablet 650 mg PO Q8H PRN pain #30 tabs 01/31/22 03/11/22 Rx magnesium oxide 400 mg (241.3 mg 400 mg PO QAM #30 tabs 01/31/22 03/11/22 Rx magnesium) tablet omeprazole 20 mg capsule,delayed 25 mg PO BID #60 caps 01/31/22 03/11/22 Rx release aripiprazole 5 mg tablet 5 mg PO DAILY 03/11/22 03/11/22 History buspirone 15 mg tablet 15 mg PO BID 03/11/22 03/11/22 History escitalopram oxalate 20 mg tablet 20 mg PO DAILY 03/11/22 03/11/22 History meloxicam 15 mg tablet 15 mg PO DAILY 03/11/22 03/11/22 History Past Med/Surg History Medical History (Updated 03/11/22 @ 18:38 by ARELY Raines) Alcohol intoxication Alcoholism Chronic hyponatremia Chronic pancreatitis COPD (chronic obstructive pulmonary disease) Displacement 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 (08/22/11) History of craniotomy Due to subdural hematoma from fall History of tobacco abuse Nonischemic cardiomyopathy Seizure disorder (05/16/12) Severe pulmonary arterial systolic hypertension Uterine leiomyoma (07/18/11) Surgical History History of arthroscopic procedure on shoulder History of onel hole surgery History of carpal tunnel surgery History of cholecystectomy History of hysterectomy S/P cervical spinal fusion Family History Mother Hypertension Social History Smoking Status: Never smoker Tobacco Type: Cigarettes Second Hand Exposure: No; Hx Alcohol Use: Yes Alcohol type: beer Alcohol Intake Frequency Comment: 5 beers/day Hx Substance Use: No Preferred Language: Swedish Communication Ability: Effective Driver Trainee Required: No Beliefs That Will Affect Care: None marital status: Single Current Living Situation: Spouse Current Living Situation Comment: pt did not answer the question clearly How many Children do You have: 0 Feels Safe at Home: Yes Assistive Devices: Glasses and Walker Review of Systems Review of Systems: REVIEW OF SYSTEMS: limited due to patient intoxication and animation - + tremors, shaking, falls - fevers, chills, chest pain, trouble breathing Physical Exam Physical Exam: PHYSICAL EXAM: General: awake, overly animated Head: Normocephalic, atraumatic ENT: PERRLA, EOMI, mucous membranes dry, no nystagmus Neuro: AAO x 2, speech slurred and appropriate, strength intact bilaterally 5/5, sensation intact and equal all extremities and dermatomes, no pronator drift, no clonus Chest: equal rise and fall of the chest, no accessory muscle use, no heaves or thrills, Clear to auscultation, on room air, Cardiac: Regular rate and rhythm, telemetry reviewed, skin warm dry, cap refill <3 seconds, peripheral pulses +2 no JVD, GI: NABS x 4 quadrants, soft, nontender to palpation, no rebound, guarding or tenderness : Spontaneously voiding Psych: calm and cooperative but animated and tearful of with her description of tremors and new medications "that i hate and make things worse". Skin: no rash or erythema Results & Data Results & Data ([facility]) Vital Signs (Past 12 Hours) Vital Signs Temp Pulse Resp BP Pulse Ox O2 Del Method 03/11/22 17:30 74 16 03/11/22 17:27 77 14 03/11/22 16:30 72 16 03/11/22 16:30 104/65 03/11/22 16:00 74 18 03/11/22 16:00 103/65 03/11/22 15:30 98/61 L 03/11/22 15:20 93 Room Air 03/11/22 15:00 109/64 03/11/22 14:59 71 16 94 03/11/22 14:53 75 18 95 03/11/22 14:53 92/75 L 03/11/22 14:30 74 20 95 03/11/22 14:14 74 16 96 03/11/22 14:50 95 Room Air 03/11/22 13:20 36.8 C 74 20 105/68 96 Room Air Laboratory Results Abnormal lab results 03/11/22 03/11/22 03/11/22 Range/Units 13:58 13:58 13:58 WBC 3.08 L (4.8-10.8) K/ul RBC 3.72 L (3.93-5.22) M/uL Hgb 10.4 L (12.0-16.0) g/dl Hct 32.4 L (34.1-44.9) % RDW Std Deviation 57.9 H (36.4-46.3) fL RDW Coeff of [place] 18.2 H (11.5-14.5) % MPV 8.9 L (9.4-12.3) fL Lymph # (Auto) 0.89 L (1.2-3.4) K/uL BUN/Creatinine Ratio 7.9 L (10-20) Glucose 103 H (70-99(Fasting)) mg/dl Calcium 7.9 L (8.5-10.1) mg/dl AST 61 H (13-39) U/L Ethyl Alcohol mg/dL 369.3 H (<10.0) mg/dl Diagnostic Findings Chest X-Ray 03/11/22 14:05 XR chest 1V portable CLINICAL HISTORY: Chest Pain. COMPARISON STUDY: 01/30/2022 TECHNIQUE: 1 view of the chest FINDINGS: Single frontal view of the chest demonstrates the cardiomediastinal silhouette to be within normal limits. The lungs are clear of alveolar opacities. There is no evidence for pleural effusion. There is no evidence for vascular congestion. There is no acute osseous pathology. IMPRESSION: 1. No acute cardiopulmonary disease. ACT 112: Negative or not required by law. Electronically signed by: Shreyas Villaseñor M.D. 03/11/2022 2:26 PM Medications Administered Home Medications vitamin B complex 1 tab PO QAM 11/25/20 [History Confirmed 03/11/22] folic acid 1 mg tablet 1 mg PO QAM #30 tabs 06/28/21 [Rx Confirmed 03/11/22] thiamine HCl (vitamin B1) 100 mg tablet (Vitamin B-1) 100 mg PO QAM #30 tabs 06/28/21 [Rx Confirmed 03/11/22] celecoxib 200 mg capsule 200 mg PO DAILY 11/21/21 [History Confirmed 03/11/22] metoprolol succinate 25 mg tablet,extended release 24 hr 25 mg PO DAILY 11/21/21 [History Confirmed 03/11/22] rizatriptan 10 mg disintegrating tablet 10 mg PO DIRECTED PRN Migraine Headache 11/21/21 [History Confirmed 03/11/22] naltrexone 50 mg tablet 100 mg PO DAILY 01/30/22 [History Confirmed 03/11/22] acetaminophen 325 mg tablet 650 mg PO Q8H PRN pain #30 tabs 01/31/22 [Rx Confirmed 03/11/22] magnesium oxide 400 mg (241.3 mg magnesium) tablet 400 mg PO QAM #30 tabs 01/31/22 [Rx Confirmed 03/11/22] omeprazole 20 mg capsule,delayed release 25 mg PO BID #60 caps 01/31/22 [Rx Confirmed 03/11/22] aripiprazole 5 mg tablet 5 mg PO DAILY 03/11/22 [History Confirmed 03/11/22] buspirone 15 mg tablet 15 mg PO BID 03/11/22 [History Confirmed 03/11/22] escitalopram oxalate 20 mg tablet 20 mg PO DAILY 03/11/22 [History Confirmed 03/11/22] meloxicam 15 mg tablet 15 mg PO DAILY 03/11/22 [History Confirmed 03/11/22] Active Medications Magnesium Sulfate/Dextrose (Magnesium Sulfate / D5w) 1 gm in 100 mls @ 100 mls/hr IV NOW STA Stop: 03/11/22 18:49 Discontinued Medications Multivitamins 10 ml/ Thiamine HCl 100 mg/ Folic Acid 1 mg/Sodium Chloride 1,011.2 mls @ 1,011.2 mls/hr IV .Q1H ONE Stop: 03/11/22 15:04 Last Infusion: 03/11/22 15:49 Dose: 0 mls/hr Documented By: Admin: 03/11/22 14:29 Dose: 1,011.2 mls/hr Documented By: ROGER ECG Additional Comments: Sinus rhythm Low voltage QRS Borderline ECG When compared with ECG of 30-JAN-2022 13:23, QT has lengthened Code Status & VTE Plan Code Status CODE: FULL VTE: SCDS, ambulation, VTE Prophylaxis Plan VTE Prophylaxis will be ordered: Yes Supervising Physician Co-Signing Physician Notes Discussed with nurse practitioner, reviewed his documentation. Agree with his note above. Patient presents complaining of gait instability, found to be actively intoxicated. Patient would like to undergo detox and states she is willing to cease alcohol consumption although she has been admitted before under similar circumstances. For now we will put patient on a Librium taper with as needed Ativan. Monitor for signs of withdrawal. Repletion with B12 and folate. Continue other medications as noted. PG Care Time/CCT Total # of Minutes Spent Total Time Spent with Patient: Total time spent is greater than 50% in coordination of care (as documented) at patient's floor/unit and/or counseling patient: Coding Level of Care Code 45057 Initial Inpt Care Lvl 3 Diagnoses Alcohol intoxication F10.920 Complication of substance-induced condition: uncomplicated Liver cirrhosis K74.60 Elevated LFTs R79.89 Frequent falls R29.6 Depression F32.A Chronic pain disorder G89.4 Hypomagnesemia E83.42 COPD (chronic obstructive pulmonary disease) J44.9 Nonischemic cardiomyopathy I42.8 History of craniotomy Z98.890 (1) Alcohol intoxication Complication of substance-induced condition: uncomplicated Qualified Code(s): F10.920 - Alcohol use, unspecified with intoxication, uncomplicated
[2022-03-11 19:11] LABS: Amphetamines+Metham, Urine Neg (Neg); Barbiturates, Urine Neg (Neg); Benzodiazepine, Urine Pos (Neg); Cocaine, Urine Neg (Neg); MDMA (Ecstacy), Urine Neg (Neg); Methadone, Urine Neg (Neg); Opiate, Urine Neg (Neg); Phencyclidine, Urine Neg (Neg)
[2022-03-11] MEDS ORDERED: chlordiazePOXIDE ALCOHOL WITHDRAWL 50MG PO STA (22:17)
[2022-03-11] MEDS ORDERED: LORazepam 2 MG in SYRINGE 1 ML IV PRN (22:17)
[2022-03-11] MEDS ORDERED: GLUCOSE 40% GEL 15 GM TUBE PO PRN (22:17)
[2022-03-11] MEDS ORDERED: DEXTROSE 50% 50 ML SYRINGE IV PRN (22:17)
[2022-03-11] MEDS ORDERED: THIAMINE HCL 300 MG in SYRINGE 9 ML IV SCH (22:17)
[2022-03-11] MEDS ORDERED: GLUCAGON FOR INJ 1 MG VIAL SQ PRN (22:17)
[2022-03-11] MEDS ORDERED: CARBOHYDRATES FOR HYPOGLYCEMIA PO PRN (22:17)
[2022-03-11] MEDS ORDERED: Ativan IV Alcohol Withdrawal--Active Protocol IV SCH (22:17)
[2022-03-11] MEDS ORDERED: GLUCOSE 10 TAB/TUBE PO PRN (22:17)
[2022-03-11] MEDS ORDERED: LORazepam 3 MG in SYRINGE 1.5 ML IV PRN (22:17)
[2022-03-11 22:52] LABS: INR 1.4 (0.9-1.1); Prothrombin Time 14.9 Seconds (9.0-12.0)
[2022-03-11] MEDS: chlordiazePOXIDE HCl 25 MG CAP PO SCH (23:51)
[2022-03-11] MEDS: THIAMINE HCL 300 MG in SODIUM CHLORIDE 0.9% 50 ML IV SCH (23:52)
[2022-03-11] MEDS: LACTATED RINGER'S 1,000 ML IV SCH (23:53)
[2022-03-12] MEDS: chlordiazePOXIDE HCl 25 MG CAP PO SCH ×3 (05:52→17:22)
[2022-03-12 06:45] LABS: Albumin Globulin Ratio 1.2 (0.9-2); Albumin Level 3.4 gm/dl (3.4-5.0); BUN Creatinine Ratio 9.1 (10-20); Bilirubin Direct 0.1 mg/dl (0-0.2); Bilirubin,Total 0.4 mg/dl (0.2-1.0); Calcium 7.6 mg/dl (8.5-10.1); Chol HDL Ratio 2.3 (0-5); Est GFR (African American) 95.2 ml/min; Est GFR (Non-African American) 82.2 ml/min; Globulin 2.8 gm/dl (2.5-4.0); Potassium 3.6 mmol/L (3.5-5.1); Total Protein 6.2 gm/dl (6.0-8.3)
[2022-03-12 07:10] LABS: Hematocrit (blood only) 29.3 % (34.1-44.9); Hemoglobin 9.4 g/dl (12.0-16.0); Mean Corpuscular Hemoglobin 27.8 pg (25.0-34.0); Mean Corpuscular Hgb Conc 32.1 g/dL (32.0-36.0); Mean Corpuscular Volume 86.7 fL (80.0-100.0); Mean Platelet Volume 8.6 fL (9.4-12.3); Platelet Count 101 K/uL (130-400); RDW Coefficient of Variation 18.1 % (11.5-14.5); RDW Standard Deviation 57.6 fL (36.4-46.3); Red Blood Count 3.38 M/uL (3.93-5.22); White Blood Count 1.55 K/ul (4.8-10.8)
[2022-03-12 07:17] LABS: Basophils # (auto) 0.01 K/uL (0-0.2); Basophils % (auto) 0.6 %; Eosinophils # (auto) 0.03 K/uL (0-0.50); Eosinophils % (auto) 1.9 %; Lymphocytes # (auto) 0.68 K/uL (1.2-3.4); Lymphocytes % (auto) 43.9 %; Monocytes # (auto) 0.24 K/uL (0.24-0.82); Monocytes % (auto) 15.5 %; Neutrophils # (auto) 0.59 K/uL (1.4-6.5); Neutrophils % (auto) 38.1 %; Target Cells 1+; Tear Drop Cells 1+
[2022-03-12] MEDS: CeleBREX 200 MG CAP PO SCH (09:03)
[2022-03-12] MEDS: METOPROLOL SUCC 25MG EXT REL TAB PO SCH (09:03)
[2022-03-12] MEDS: ESCITALOPRAM OXALATE 20 MG TAB PO SCH (09:04)
[2022-03-12] MEDS: FOLIC ACID 1 MG TAB PO SCH (09:05)
[2022-03-12] MEDS: PANTOprazole 40 MG TAB PO SCH ×2 (09:05→22:04)
[2022-03-12] MEDS: THIAMINE HCL 300 MG in SODIUM CHLORIDE 0.9% 50 ML IV SCH (09:56)
[2022-03-12] MEDS: ACETAMINOPHEN 325 MG TAB PO PRN ×2 (10:22→22:04)
[2022-03-12] MEDS: LACTATED RINGER'S 1,000 ML IV SCH ×2 (12:24→19:57)
--- NOTE | 2022-03-12 12:58 | Hospitalist Progress Note ---
Date of Service March 12, 2022 Assessment & Plan (1) Alcohol intoxication: Plan: Patient comes in for tremors and balance instability that resolve with alcohol consumption - she reports that she would like to stop and is willing to stay now for detox - will start on Librium and Ativan- if she stays consider transitioning to phenobarb - Thiamine 300mg IV daily started, but will change to high dose 500mg IV q8h x 2 days and then change to 250mg IV daily longer term (up to 4 weeks) - Continue Folate 1mg PO daily - Ringers overnight - Psych consultation, appreciate assistance (2) Pancytopenia: Plan: - With neutropenia, ANC of 590 - Add neutropenic precautions - Obtain peripheral smear (3) Liver cirrhosis: Plan: History of Hepatitis C - previously followed with GI - LFTs in am - INR in am (4) Elevated LFTs: Plan: - AST 61 ALT 19, likely secondary to 1 & 2 - Trending down (5) Frequent falls: Plan: Secondary to alchol misuse as well as chronic pain - PT/OT consultation (6) Depression: Plan: Continue her escitalopram- have room to increase - hold her BuSpar and Abilify (7) Chronic pain disorder: Plan: She reports that she takes two 324 mg aspirin every 4-6 hours for pain - neck and hip pain - history of cervical fusion, arthroscopy of shoulder - could consider adding gabapentin as well as this may help her withdrawl - Continue Celebrex with BID PPI (8) Hypomagnesemia: Plan: - Repleted/normalized (9) COPD (chronic obstructive pulmonary disease): Plan: HX of without any inhalers of home and no PFTS recently - smattering of mention throughout chart unsure of this diagnosis (10) Nonischemic cardiomyopathy: Plan: Chronic problem without evidence of acute exacerbation - continue with metoprolol (11) History of craniotomy: Plan: Secondary to falls - will hold on chemoprophylaxis of VTE until not intoxicated Plan As above. Continue AWSS with Ativan + Librium. High dose Thiamine. Obtain peripheral smear and add neutropenic precautions. Plan d/w Dr. العلي. Admission and Anticipated Discharge Date Admission Date: March 11, 2022 Subjective Patient seen on daily rounds this morning. She was hospitalized with acute EtOH intoxication with request for detox. Pt continues to be tremulous but she states that she feels "great" and has no complaints. She claims that she has detoxed from alcohol at home before and never had issues with seizures or other complications. Review of Systems Review of Systems: All systems reviewed and are unremarkable except as noted in HPI and below. Denies fever, chills, fatigue, headache, nasal congestion, sore throat, cough, chest pain, shortness of breath, palpitations, orthopnea, PND, abdominal pain, n/v/d, constipation, dysuria, hematuria, frequency, back pain, joint pain or swelling, easy bruising or bleeding, skin lesions or rashes. Physical Exam Physical Exam: GENERAL: 62 yo Well-developed, well-nourished WF. NAD. LUNGS: Clear to auscultation bilaterally. No W/R/R. CARDIOVASCULAR: Regular rate and rhythm. ABDOMEN: Soft, non-tender and non-distended. BS normoactive x 4 quad. EXTREMITIES: No edema. Non-tender. Peripheral pulses +2/4. NEUROLOGIC: A&O x3. Tremulous. No focal neurological deficits. CN II-XII grossly intact. PSYCHIATRIC: Cooperative. Appropriate mood and affect. SKIN: Warm, dry, intact. Some diffuse ecchymosis noted. Results & Data Results & Data ([facility]) Vital Signs (Past 12 Hours) Vital Signs Pulse Resp BP Pulse Ox O2 Del Method 03/12/22 08:00 73 16 116/61 97 Room Air 03/12/22 07:40 Room Air 03/12/22 07:08 68 18 113/66 93 Room Air Laboratory Results 03/12/22 05:48 03/12/22 05:48 PG Care Time/CCT Total # of Minutes Spent Total Time Spent with Patient: Total time spent is greater than 50% in coordination of care (as documented) at patient's floor/unit and/or counseling patient: Coding Level of Care Code 61486 Subseq Hosp Care Lvl 2 Diagnoses Alcohol intoxication F10.920 Complication of substance-induced condition: uncomplicated Pancytopenia D61.818 Liver cirrhosis K74.60 Elevated LFTs R79.89 Frequent falls R29.6 Depression F32.A Chronic pain disorder G89.4 Hypomagnesemia E83.42 COPD (chronic obstructive pulmonary disease) J44.9 Nonischemic cardiomyopathy I42.8 History of craniotomy Z98.890 (1) Alcohol intoxication Complication of substance-induced condition: uncomplicated Qualified Code(s): F10.920 - Alcohol use, unspecified with intoxication, uncomplicated
--- NOTE | 2022-03-12 15:57 | Psychiatric Consultation ---
Date of Consultation March 12, 2022 Impression / Recommendations Impression 62-year-old woman with history of depression, TBI and alcohol use disorder admitted for supervised withdrawal. Diagnostically consistent with likely alcohol use withdraw versus combination of medication side effects from Abilify and BuSpar combination with alcohol use. Agree with discontinuation of Abilify and BuSpar given side effects that occurred prior to admission. No current signs of any serotonin syndrome. AST is slightly elevated but not significantly so so discussed with patient and her partner restarting naltrexone which she would like to do as this has been very helpful. He declines residential substance use treatment but is interested in starting outpatient therapy psychiatric liaison will work on referral for [facility]. She will continue to work with [facility] for outpatient psychiatric care. Acute risk of self-harm is low given denial of suicidal ideation and no current depressive symptoms. (1) Alcohol use disorder, moderate, dependence: Plan -Restart naltrexone 100mg qd -Continue escitalopram, agree with discontinuation of abilify and buspar -Psych liason to refer for [facility] outpatient substance use services/therapy -Has psych follow-up with [facility] History Identifying Data 62-year-old woman with history of depression, anxiety and alcohol use disorder admitted medically for supervised alcohol withdrawal. Psychiatry consulted for recommendations regarding alcohol use disorder. Chief Complaint "I knew it could be dangerous if you drink an hour detox alone so figured it was best to do it here where it can be safe". History of Present Illness Nury is known to me from a previous psychiatric consultation in November 2021 for similar circumstances of alcohol use and supervised withdrawal. She is accompanied by her partner Mamta who is at bedside. She denies any significant depressive symptoms PHQ-9 score of 3 and 0 for question 9. She presented to the emergency department after starting Abilify and BuSpar yesterday and becoming v stephan shaky and unsteady. She contacted her outpatient psychiatric provider at [facility] who raised concern for possible serotonin syndrome and recommended she be seen at the emergency department. On presentation to the emergency department it was felt her symptoms were more likely due to to effects from alcohol withdrawal and she requested admission for supervised withdrawal. She states she has recently been drinking approximately 6-10 beers per day although on some days will consume a 12 pack. She has been taking naltrexone and feels this is helping reduce her alcohol use. He also continues to take Lexapro daily and finds this helpful. She is not interested in residential substance use treatment but is willing for a referral for dual diagnosis outpatient substance use focused therapy at [facility]. She denies any suicidal ideation nor any other prominent psychiatric symptoms. Past Psychiatric History Outpatient Services: Psychiatric care through [facility] Previous Psych Admissions: Once in her 20s History of Previous Suicide Attempt: No Allergies Allergy/AdvReac Type Severity Reaction Status Date / Time gabapentin AdvReac Severe Confusion Verified 03/11/22 17:14 acetaminophen [From Tylenol] AdvReac Unknown CONTRAINDICATED Verified 03/11/22 17:14 DUE TO LIVER ISSUES ibuprofen AdvReac Unknown CONTRAINDICATED Verified 03/11/22 17:14 DUE TO LIVER ISSUES Home Medications Medication Instructions Recorded Confirmed Type vitamin B complex 1 tab PO QAM 11/25/20 03/11/22 History folic acid 1 mg tablet 1 mg PO QAM #30 tabs 06/28/21 03/11/22 Rx thiamine HCl (vitamin B1) 100 mg 100 mg PO QAM #30 tabs 06/28/21 03/11/22 Rx tablet (Vitamin B-1) celecoxib 200 mg capsule 200 mg PO DAILY 11/21/21 03/11/22 History metoprolol succinate 25 mg 25 mg PO DAILY 11/21/21 03/11/22 History tablet,extended release 24 hr rizatriptan 10 mg disintegrating 10 mg PO DIRECTED PRN Migraine 11/21/21 03/11/22 History tablet Headache naltrexone 50 mg tablet 100 mg PO DAILY 01/30/22 03/11/22 History acetaminophen 325 mg tablet 650 mg PO Q8H PRN pain #30 tabs 01/31/22 03/11/22 Rx magnesium oxide 400 mg (241.3 mg 400 mg PO QAM #30 tabs 01/31/22 03/11/22 Rx magnesium) tablet omeprazole 20 mg capsule,delayed 25 mg PO BID #60 caps 01/31/22 03/11/22 Rx release aripiprazole 5 mg tablet 5 mg PO DAILY 03/11/22 03/11/22 History buspirone 15 mg tablet 15 mg PO BID 03/11/22 03/11/22 History escitalopram oxalate 20 mg tablet 20 mg PO DAILY 03/11/22 03/11/22 History meloxicam 15 mg tablet 15 mg PO DAILY 03/11/22 03/11/22 History Substance Abuse History see HPI extensive alcohol use history Personal History Living Arrangements: Home Marital Status: Living w/ Signif. Other Beliefs That Will Affect Care: None Patient History Medical History Alcohol intoxication Alcoholism Chronic hyponatremia Chronic pancreatitis COPD (chronic obstructive pulmonary disease) Displacement 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 (08/22/11) History of craniotomy Due to subdural hematoma from fall History of tobacco abuse Nonischemic cardiomyopathy Seizure disorder (05/16/12) Severe pulmonary arterial systolic hypertension Uterine leiomyoma (07/18/11) Surgical History History of arthroscopic procedure on shoulder History of onel hole surgery History of carpal tunnel surgery History of cholecystectomy History of hysterectomy S/P cervical spinal fusion Family History Mother Hypertension Social History Smoking Status: Former smoker Tobacco Type: Cigarettes Second Hand Exposure: No; Hx Alcohol Use: Yes Alcohol type: beer Alcohol Intake Frequency Comment: 5 beers/day Hx Substance Use: No Preferred Language: Paraguayan Communication Ability: Effective 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 Beliefs That Will Affect Care: None marital status: Single Current Living Situation: Spouse Current Living Situation Comment: pt did not answer the question clearly How many Children do You have: 0 Feels Safe at Home: Yes Assistive Devices: Glasses and Walker Physical Exam Psychiatric: Orientation: alert and oriented x 3 Apperance: appropriately dressed and appropriately groomed Eye Contact: good eye contact Motor Behavior: no abnormal motor movements Speech: normal rate/rhythm/volume of speech Affect: euthymic affect Mood: no depressed mood and no anxious mood Thought Process: linear/logical thought process Thought Content: reality based without delusions Suicidal Thoughts: denies suicidal thoughts Homi cidal Thoughts: denies homicidal thoughts Hallucinations: no auditory hallucinations and no visual hallucinations Cognition: recent memory grossly intact, remote memory grossly intact, attention grossly intact and language grossly intact Estimated Intelligence: consistent with education level Insight: + fair insight Judgement: + fair judgement Vital Signs (Past 24 Hours): Last Vital Signs Temp 36.8 C 03/12/22 15:00 Pulse 77 03/12/22 15:00 Resp 16 03/12/22 15:00 BP 122/85 03/12/22 15:00 Pulse Ox 93 03/12/22 15:00 O2 Del Method 03/12/22 15:00 Review of Systems All systems reviewed & are unremarkable except as noted in HPI & below Results & Data (PSY) Medications Administered Acetaminophen (Acetaminophen 325 Mg Tab) 650 mg PO Q4H PRN PRN Reason: Pain or Fever Stop: 04/10/22 22:16 Last Admin: 03/12/22 10:22 Dose: 650 mg Documented By: BEHZAD Celecoxib (Celebrex 200 Mg Cap) 200 mg PO DAILY [facility] Stop: 04/11/22 08:59 Last Admin: 03/12/22 09:03 Dose: 200 mg Documented By: MELODY Chlordiazepoxide HCl (Chlordiazepoxide Hcl 25 Mg Cap) 50 mg PO Q6 [facility]; Taper Stop: 03/14/22 22:16 Last Admin: 03/12/22 12:24 Dose: 50 mg Documented By: Admin: 03/12/22 05:52 Dose: 50 mg Documented By: Admin: 03/11/22 23:51 Dose: 50 mg Documented By: DESMOND Escitalopram Oxalate (Escitalopram Oxalate 20 Mg Tab) 20 mg PO DAILY [facility] Stop: 04/11/22 08:59 Last Admin: 03/12/22 09:04 Dose: 20 mg Documented By: MELODY Folic Acid (Folic Acid 1 Mg Tab) 1 mg PO QAM [facility] Stop: 04/11/22 08:59 Last Admin: 03/12/22 09:05 Dose: 1 mg Documented By: MELODY Lactated Ringer's (Lr) 1,000 mls @ 90 mls/hr IV .Q11H7M [facility] Stop: 04/10/22 22:16 Last Admin: 03/12/22 12:24 Dose: 90 mls/hr Documented By: Infusion: 03/12/22 11:00 Dose: 90 mls/hr Documented By: Admin: 03/11/22 23:53 Dose: 90 mls/hr Documented By: DESMOND Metoprolol Succinate (Metoprolol Succ 25mg Ext Rel Tab) 25 mg PO DAILY [facility] Stop: 04/11/22 08:59 Last Admin: 03/12/22 09:03 Dose: 25 mg Documented By: MELODY Pantoprazole Sodium (Pantoprazole 40 Mg Tab) 40 mg PO BID [facility] Stop: 04/11/22 08:59 Last Admin: 03/12/22 09:05 Dose: 40 mg Documented By: MELODY Coding Level of Care Code 44387 Inpt Consult Level 3 Diagnoses Alcohol use disorder, moderate, dependence F10.20
[2022-03-12] MEDS: THIAMINE HCL 500 MG in SODIUM CHLORIDE 0.9% 50 ML IV SCH (17:23)
[2022-03-13] MEDS: chlordiazePOXIDE HCl 25 MG CAP PO SCH ×3 (00:35→16:49)
[2022-03-13] MEDS: THIAMINE HCL 500 MG in SODIUM CHLORIDE 0.9% 50 ML IV SCH ×3 (02:43→17:50)
[2022-03-13] MEDS: LACTATED RINGER'S 1,000 ML IV SCH (06:38)
[2022-03-13 07:18] LABS: Hematocrit (blood only) 30.8 % (34.1-44.9); Hemoglobin 9.9 g/dl (12.0-16.0); Mean Corpuscular Hemoglobin 27.8 pg (25.0-34.0); Mean Corpuscular Hgb Conc 32.1 g/dL (32.0-36.0); Mean Corpuscular Volume 86.5 fL (80.0-100.0); Mean Platelet Volume 8.7 fL (9.4-12.3); Platelet Count 100 K/uL (130-400); RDW Coefficient of Variation 18.1 % (11.5-14.5); RDW Standard Deviation 57.6 fL (36.4-46.3); Red Blood Count 3.56 M/uL (3.93-5.22); White Blood Count 1.48 K/ul (4.8-10.8)
[2022-03-13 07:25] LABS: Basophils # (auto) 0.01 K/uL (0-0.2); Basophils % (auto) 0.7 %; Eosinophils # (auto) 0.05 K/uL (0-0.50); Eosinophils % (auto) 3.4 %; Lymphocytes # (auto) 0.52 K/uL (1.2-3.4); Lymphocytes % (auto) 35.1 %; Monocytes # (auto) 0.25 K/uL (0.24-0.82); Monocytes % (auto) 16.9 %; Neutrophils # (auto) 0.65 K/uL (1.4-6.5); Neutrophils % (auto) 43.9 %
[2022-03-13] MEDS: FOLIC ACID 1 MG TAB PO SCH (08:45)
[2022-03-13] MEDS: CeleBREX 200 MG CAP PO SCH (08:45)
[2022-03-13] MEDS: NALTREXONE HCL 50 MG TAB PO SCH (08:45)
[2022-03-13] MEDS: METOPROLOL SUCC 25MG EXT REL TAB PO SCH (08:45)
[2022-03-13] MEDS: ESCITALOPRAM OXALATE 20 MG TAB PO SCH (08:45)
[2022-03-13] MEDS: PANTOprazole 40 MG TAB PO SCH ×2 (08:45→20:56)
[2022-03-13] MEDS: ACETAMINOPHEN 325 MG TAB PO PRN ×3 (12:26→20:55)
[2022-03-13] MEDS: LORazepam 1 MG in SYRINGE 0.5 ML IV PRN ×2 (12:27→21:53)
--- NOTE | 2022-03-13 14:13 | Electrocardiogram Report ---
Test Reason : Blood Pressure : / mmHG Vent. Rate : 074 BPM Atrial Rate : 074 BPM P-R Int : 184 ms QRS Dur : 080 ms QT Int : 452 ms P-R-T Axes : 043 007 020 degrees QTc Int : 501 ms Poor data quality, interpretation may be adversely affected Normal sinus rhythm Low voltage QRS Borderline ECG When compared with ECG of 11-MAR-2022 13:44, No significant change was found Confirmed by Johnny Santiago ([id number]) on 03/13/2022 2:12:52 PM Referred By: REFERRED SELF Confirmed By:Johnny Santiago
[2022-03-13] MEDS ORDERED: GABAPENTIN 1200MG ALCOHOL WITHDRAWAL LOAD PO STA (14:27)
[2022-03-13] MEDS ORDERED: GABAPENTIN 600 MG TAB PO ONE (14:27)
--- NOTE | 2022-03-13 14:39 | Hospitalist Progress Note ---
Date of Service March 13, 2022 Assessment & Plan (1) Alcohol intoxication: Plan: Patient comes in for tremors and balance instability that resolve with alcohol consumption - she reports that she would like to stop and is willing to stay now for detox - Started on Librium and Ativan - Thiamine 300mg IV daily started, but will change to high dose 500mg IV q8h x 2 days and then change to 250mg IV daily longer term (up to 4 weeks) - Continue Folate 1mg PO daily - LR provided upfront have since been discontinued - Psych consultation, appreciate assistance, restarted naltrexone - Medicated by RN this afternoon for AWSS score of 12 - Start Gabapentin taper with 1200mg load and continue Librium - Make 1:1 until more calm/cooperative, attempted to elope this afternoon (2) Pancytopenia: Plan: - With neutropenia, ANC of 590 on 03/12 up to 650 on 03/13 - Continue neutropenic precautions - Peripheral smear ordered/pending (3) Liver cirrhosis: Plan: History of Hepatitis C - previously followed with GI - Stable (4) Elevated LFTs: Plan: - AST 61 ALT 19, likely secondary to 1 & 2 - Trending down, CMP in AM (5) Frequent falls: Plan: Secondary to alcohol misuse as well as chronic pain - PT/OT consultation when pt is more cooperative (6) Depression: Plan: Continue her escitalopram- have room to increase if needed - hold her BuSpar and Abilify (as tthere was concern for SS when she was admitted, however suspect sx were due to taking meds in combination with EtOH) (7) Chronic pain disorder: Plan: She reports that she takes two 324 mg aspirin every 4-6 hours for pain - neck and hip pain - history of cervical fusion, arthroscopy of shoulder - could consider adding gabapentin as well as this may help her withdrawl - Continue Celebrex with BID PPI (8) Hypomagnesemia: Plan: - Repleted/normalized (9) COPD (chronic obstructive pulmonary disease): Plan: HX of without any inhalers of home and no PFTS recently - smattering of mention throughout chart and pt subjectively reports this as a diagnosis (10) Nonischemic cardiomyopathy: Plan: Chronic problem without evidence of acute exacerbation - continue with metoprolol (11) History of craniotomy: Plan: Secondary to falls - SCDs Plan As above. Continue AWSS with Ativan + Librium, high dose Thiamine, and add Gabapentin taper. Make 1:1. AM labs. Plan d/w Dr. Diana. Admission and Anticipated Discharge Date Admission Date: March 11, 2022 Subjective Patient seen on daily rounds this morning. Pt continues to be tremulous but she states that otherwsie she feels "great" and has no complaints. She did relay a history of neutropenia from Interferon injections that she was receiving to treat her HCV. She did require what sounds like neupogen injections temporarily but then noted that her neutropenia resolved and hasn't been aware of any issues in several years. Notified by RN this afternoon that patient is becoming more confused, agitated, and mean with staff. Did require a dose of IV Ativan 1mg but not effective and therefore a second dose of 2mg IV was given. Review of Systems Review of Systems: All systems reviewed and are unremarkable except as noted in HPI and below. Denies fever, chills, fatigue, headache, nasal congestion, sore throat, cough, chest pain, shortness of breath, palpitations, orthopnea, PND, abdominal pain, n/v/d, constipation, dysuria, hematuria, frequency, back pain, joint pain or swelling, easy bruising or bleeding, skin lesions or rashes. Physical Exam Physical Exam: GENERAL: 62 yo Well-developed, well-nourished WF. NAD. LUNGS: Clear to auscultation bilaterally. No W/R/R. CARDIOVASCULAR: Regular rate and rhythm. ABDOMEN: Soft, non-tender and non-distended. BS normoactive x 4 quad. EXTREMITIES: No edema. Non-tender. Peripheral pulses +2/4. NEUROLOGIC: A&O x3. Tremulous. No focal neurological deficits. CN II-XII grossly intact. PSYCHIATRIC: Cooperative. Appropriate mood and affect. SKIN: Warm, dry, intact. Some diffuse ecchymosis noted. Results & Data Results & Data ([facility]) Vital Signs (Past 12 Hours) Vital Signs Temp Pulse Resp BP Pulse Ox O2 Del Method 03/13/22 12:07 36.8 C 75 18 114/65 97 Room Air 03/13/22 07:44 36.7 C 74 22 114/72 98 Room Air 03/13/22 02:48 36.6 C 70 18 124/74 99 Room Air Laboratory Results 03/13/22 06:32 07/26/22 05:48 CCL=365 PG Care Time/CCT Total # of Minutes Spent Total Time Spent with Patient: Total time spent is greater than 50% in coordination of care (as documented) at patient's floor/unit and/or counseling patient: Coding Level of Care Code 87628 Subseq Hosp Care Lvl 3 Diagnoses Alcohol intoxication F10.920 Complication of substance-induced condition: uncomplicated Pancytopenia D61.818 Liver cirrhosis K74.60 Elevated LFTs R79.89 Frequent falls R29.6 Depression F32.A Chronic pain disorder G89.4 Hypomagnesemia E83.42 COPD (chronic obstructive pulmonary disease) J44.9 Nonischemic cardiomyopathy I42.8 History of craniotomy Z98.890 (1) Alcohol intoxication Complication of substance-induced condition: uncomplicated Qualified Code(s): F10.920 - Alcohol use, unspecified with intoxication, uncomplicated
[2022-03-13] MEDS: GABAPENTIN 600 MG TAB PO SCH (20:55)
[2022-03-14 00:11] LABS: 7-Aminoclonaz, Confirm NEGATIVE ng/mL (<25); Hydro-Alp Ur, GC/MS NEGATIVE ng/mL (<25); Hydroxyethylflurazepam, Conf NEGATIVE ng/mL (<50); Hydroxymidazolam Ur, GC/MS NEGATIVE ng/mL (<50); Hydroxytriazolam NEGATIVE ng/mL (<50); Lorazepam, Ur GC/MS NEGATIVE ng/mL (<50); Nordiazepam, Confirm 50 ng/mL (<50); Oxazepam Ur, GC/MS 51 ng/mL (<50); Temazepam, Confirm 116 ng/mL (<50)
[2022-03-14] MEDS: chlordiazePOXIDE HCl 25 MG CAP PO SCH ×3 (01:47→16:33)
[2022-03-14] MEDS: THIAMINE HCL 500 MG in SODIUM CHLORIDE 0.9% 50 ML IV SCH (01:48)
[2022-03-14] MEDS: GABAPENTIN 600 MG TAB PO SCH ×3 (01:48→19:24)
--- NOTE | 2022-03-14 08:46 | Hospitalist Progress Note ---
Date of Service March 14, 2022 Assessment & Plan (1) Alcohol intoxication: Plan: Patient comes in for tremors and balance instability that resolve with alcohol consumption - - Started on Librium Gabapentin and Ativan good relief and resolution of somatic symptoms we will begin tapering Librium on 03/15/2022 as the was the first day we had good control of her withdrawal symptoms - Thiamine 300mg IV daily started, but will change to high dose 500mg IV q8h x 2 days and then change to 250mg IV daily longer term (up to 4 weeks) - Continue Folate 1mg PO daily - Psych consultation, appreciate assistance, restarted naltrexone -Remove 1 and 1 (2) Pancytopenia: Plan: - With neutropenia, ANC of 590 on 03/12 up to 650 on 03/13 - Continue neutropenic precautions likely bone marrow suppression from alcohol no atypical cells are noted (3) Liver cirrhosis: Plan: History of Hepatitis C - previously followed with GI - Stable (4) Elevated LFTs: Plan: - AST 61 ALT 19, likely secondary to 1 & 2 - Trending down, (5) Frequent falls: Plan: Secondary to alcohol misuse as well as chronic pain - PT/OT consultation when pt is more cooperative (6) Depression: Plan: Continue her escitalopram- have room to increase if needed -Continue to hold BuSpar and Abilify (7) Chronic pain disorder: Plan: She reports that she takes two 324 mg aspirin every 4-6 hours for pain - neck and hip pain - history of cervical fusion, arthroscopy of shoulder - Continue Celebrex with BID PPI (8) Hypomagnesemia: Plan: - Repleted/normalized (9) COPD (chronic obstructive pulmonary disease): Plan: HX of without any inhalers of home and no PFTS recently - smattering of mention throughout chart and pt subjectively reports this as a diagnosis (10) Nonischemic cardiomyopathy: Plan: Chronic problem without evidence of acute exacerbation - continue with metoprolol (11) History of craniotomy: Plan: Secondary to falls - SCDs Admission and Anticipated Discharge Date Admission Date: March 11, 2022 Subjective pt states she is much improved calm oriented, can speak easily, little tremor Review of Systems Review of Systems: Mild distress and moderate fatigue no headache, no visual changes no speech or swallowing issues no chest pain, pressure or palpitations no shortness of breath, cough or wheezes no abdominal pain, nausea or vomiting, diarrhea or constipation no dysuria, hematuria or frequency no focal joint pain or swelling no back pain, CVA tenderness or radicular pain no bruising, bleeding or rashes no focal signs of weakness or numbness or altered sensation Some anxiety and tremulousness Physical Exam Physical Exam: The patient appeared slightly sedate and chronically ill Vital signs as documented. Head exam is normocephalic atraumatic Neck is without JVD, thyromegaly, or carotid bruits. Lungs are clear to auscultation, no focal loss of breath sounds Cardiac exam, Rhythm is regular.. No murmurs, rubs or gallops. Abdominal exam reveals normal bowel sounds, soft non tender, no masses Extremities are nonedematous and both pedal pulses are present Neurologic exam is alert and oriented, no focal loss of strength or sensation no asterixis but still some tremor present Skin is without bruises or rashes Psychologically is with returns for substance withdrawal alcohol withdrawal Results & Data Results & Data ([facility]) Vital Signs (Past 12 Hours) Vital Signs Temp Pulse Pulse Resp BP Pulse Ox O2 Del Method 03/14/22 06:55 97.7 F 72 19 150/85 H 100 Room Air 03/13/22 22:20 65 03/13/22 23:24 97.5 F L 71 18 135/42 L 97 Room Air PG Care Time/CCT Total # of Minutes Spent Total Time Spent with Patient: Total time spent is greater than 50% in coordination of care (as documented) at patient's floor/unit and/or counseling patient: Coding Level of Care Code 53902 Subseq Hosp Care Lvl 2 Diagnoses Alcohol intoxication Complication of substance-induced condition: uncomplicated Pancytopenia D61.818 Liver cirrhosis K74.60 Elevated LFTs R79.89 Frequent falls R29.6 Depression F32.A Chronic pain disorder G89.4 Hypomagnesemia E83.42 COPD (chronic obstructive pulmonary disease) J44.9 Nonischemic cardiomyopathy I42.8 History of craniotomy Z98.890 (1) Alcohol intoxication Complication of substance-induced condition: uncomplicated Qualified Code(s): F10.920 - Alcohol use, unspecified with intoxication, uncomplicated
[2022-03-14 08:48] LABS: Hematocrit (blood only) 31.3 % (34.1-44.9); Hemoglobin 10.1 g/dl (12.0-16.0); Mean Corpuscular Hemoglobin 28.3 pg (25.0-34.0); Mean Corpuscular Hgb Conc 32.3 g/dL (32.0-36.0); Mean Corpuscular Volume 87.7 fL (80.0-100.0); Mean Platelet Volume 9.3 fL (9.4-12.3); Platelet Count 92 K/uL (130-400); RDW Coefficient of Variation 18.6 % (11.5-14.5); RDW Standard Deviation 58.8 fL (36.4-46.3); Red Blood Count 3.57 M/uL (3.93-5.22); White Blood Count 1.31 K/ul (4.8-10.8)
[2022-03-14 08:49] LABS: Basophils # (auto) 0.01 K/uL (0-0.2); Basophils % (auto) 0.8 %; Eosinophils # (auto) 0.09 K/uL (0-0.50); Eosinophils % (auto) 6.9 %; Lymphocytes # (auto) 0.49 K/uL (1.2-3.4); Lymphocytes % (auto) 37.4 %; Monocytes # (auto) 0.21 K/uL (0.24-0.82); Neutrophils # (auto) 0.51 K/uL (1.4-6.5); Neutrophils % (auto) 38.9 %
[2022-03-14 09:08] LABS: Albumin Globulin Ratio 1.2 (0.9-2); Albumin Level 3.3 gm/dl (3.4-5.0); BUN Creatinine Ratio 5.5 (10-20); Calcium 8.1 mg/dl (8.5-10.1); Creatinine Clr Calc Pharmacy 79.8 ml/min; Est GFR (African American) 101.6 ml/min; Est GFR (Non-African American) 87.7 ml/min; Globulin 2.7 gm/dl (2.5-4.0); Potassium 3.3 mmol/L (3.5-5.1)
[2022-03-14] MEDS: NALTREXONE HCL 50 MG TAB PO SCH (09:14)
[2022-03-14] MEDS: ACETAMINOPHEN 325 MG TAB PO PRN ×2 (09:14→19:23)
[2022-03-14] MEDS: PANTOprazole 40 MG TAB PO SCH ×2 (09:15→21:32)
[2022-03-14] MEDS: CeleBREX 200 MG CAP PO SCH (09:15)
[2022-03-14] MEDS: METOPROLOL SUCC 25MG EXT REL TAB PO SCH (09:15)
[2022-03-14] MEDS: ESCITALOPRAM OXALATE 20 MG TAB PO SCH (09:15)
[2022-03-14] MEDS: FOLIC ACID 1 MG TAB PO SCH (09:16)
[2022-03-14] MEDS: THIAMINE HCL 250 MG in SODIUM CHLORIDE 0.9% 50 ML IV SCH (09:19)
[2022-03-14 10:17] LABS: Magnesium 1.5 mg/dl (1.7-2.4)
[2022-03-15] MEDS: ACETAMINOPHEN 325 MG TAB PO PRN ×4 (00:56→22:11)
[2022-03-15] MEDS: LORazepam 1 MG in SYRINGE 0.5 ML IV PRN (00:56)
[2022-03-15] MEDS: GABAPENTIN 600 MG TAB PO SCH ×2 (03:30→15:02)
--- NOTE | 2022-03-15 07:56 | Hospitalist Progress Note ---
Date of Service March 15, 2022 Assessment & Plan (1) Alcohol intoxication: Plan: Patient comes in for tremors and balance instability that resolve with alcohol consumption - - Started on Librium Gabapentin and Ativan good relief and resolution of somatic symptoms we will begin tapering Librium on 03/15/2022 as the was the first day we had good control of her withdrawal symptoms - Thiamine 300mg IV daily started, but will change to high dose 500mg IV q8h x 2 days and then change to 250mg IV daily longer term (up to 4 weeks) - Continue Folate 1mg PO daily - Psych consultation, appreciate assistance, restarted naltrexone, will follow up [facility] for behavioral health counseling has appointment next week (2) Pancytopenia: Plan: - With neutropenia, ANC of 590 on 03/12 up to 650 on 03/13 - Continue neutropenic precautions likely bone marrow suppression from alcohol no atypical cells are noted (3) Liver cirrhosis: Plan: History of Hepatitis C - previously followed with GI - Stable (4) Elevated LFTs: Plan: - secondary alcohol abuse - Trending down, (5) Frequent falls: Plan: Secondary to alcohol misuse as well as chronic pain pt able to walk in halls (6) Depression: Plan: Continue her escitalopram- have room to increase if needed -Continue to hold BuSpar and Abilify (7) Chronic pain disorder: Plan: She reports that she takes two 324 mg aspirin every 4-6 hours for pain - neck and hip pain - history of cervical fusion, arthroscopy of shoulder - Continue Celebrex with BID PPI (8) Hypomagnesemia: Plan: - Repleted/normalized (9) COPD (chronic obstructive pulmonary disease): Plan: HX of without any inhalers of home and no PFTS recently - smattering of mention throughout chart and pt subjectively reports this as a diagnosis (10) Nonischemic cardiomyopathy: Plan: Chronic problem without evidence of acute exacerbation - continue with metoprolol (11) History of craniotomy: Plan: Secondary to falls - SCDs Admission and Anticipated Discharge Date Admission Date: March 11, 2022 Subjective pt states she is much improved but does not feel well enough to be home discussed alcohol abuse at bedside with patient and her partner calm oriented, can speak easily, little tremor Review of Systems Review of Systems: Mild distress and moderate fatigue no headache, no visual changes no speech or swallowing issues no chest pain, pressure or palpitations no shortness of breath, cough or wheezes no abdominal pain, nausea or vomiting, diarrhea or constipation no dysuria, hematuria or frequency no focal joint pain or swelling no back pain, CVA tenderness or radicular pain no bruising, bleeding or rashes no focal signs of weakness or numbness or altered sensation Some anxiety and tremulousness Physical Exam Physical Exam: The patient appeared slightly sedate and chronically ill Vital signs as documented. Head exam is normocephalic atraumatic Neck is without JVD, thyromegaly, or carotid bruits. Lungs are clear to auscultation, no focal loss of breath sounds Cardiac exam, Rhythm is regular.. No murmurs, rubs or gallops. Abdominal exam reveals normal bowel sounds, soft non tender, no masses Extremities are nonedematous and both pedal pulses are present Neurologic exam is alert and oriented, no focal loss of strength or sensation no asterixis but still some tremor present Skin is without bruises or rashes Psychologically is with returns for substance withdrawal alcohol withdrawal Results & Data Results & Data ([facility]) Vital Signs (Past 12 Hours) Vital Signs Temp Pulse Pulse Resp BP BP Pulse Ox 03/15/22 06:50 97.5 F L 65 20 153/79 H 98 03/15/22 03:30 97.5 F L 64 16 138/84 94 03/15/22 00:00 75 03/14/22 22:50 98.6 F 71 18 161/87 H 95 O2 Del Method 03/15/22 06:50 Room Air 03/15/22 03:30 Room Air 03/15/22 00:00 03/14/22 22:50 Room Air PG Care Time/CCT Total # of Minutes Spent Total Time Spent with Patient: Total time spent is greater than 50% in coordination of care (as documented) at patient's floor/unit and/or counseling patient: Coding Level of Care Code 20719 Subseq Hosp Care Lvl 2 Diagnoses Alcohol intoxication F10.920 Complication of substance-induced condition: uncomplicated Pancytopenia D61.818 Liver cirrhosis K74.60 Elevated LFTs R79.89 Frequent falls R29.6 Depression F32.A Chronic pain disorder G89.4 Hypomagnesemia E83.42 COPD (chronic obstructive pulmonary disease) J44.9 Nonischemic cardiomyopathy I42.8 History of craniotomy Z98.890 (1) Alcohol intoxication Complication of substance-induced condition: uncomplicated Qualified Code(s): F10.920 - Alcohol use, unspecified with intoxication, uncomplicated
[2022-03-15] MEDS: FOLIC ACID 1 MG TAB PO SCH (08:10)
[2022-03-15] MEDS: chlordiazePOXIDE HCl 25 MG CAP PO SCH ×2 (08:10→20:24)
[2022-03-15] MEDS: CeleBREX 200 MG CAP PO SCH (08:10)
[2022-03-15] MEDS: METOPROLOL SUCC 25MG EXT REL TAB PO SCH (08:10)
[2022-03-15] MEDS: ESCITALOPRAM OXALATE 20 MG TAB PO SCH (08:10)
[2022-03-15] MEDS: PANTOprazole 40 MG TAB PO SCH ×2 (08:11→20:25)
[2022-03-15] MEDS: THIAMINE HCL 250 MG in SODIUM CHLORIDE 0.9% 50 ML IV SCH (08:11)
[2022-03-15] MEDS: NALTREXONE HCL 50 MG TAB PO SCH (08:11)
[2022-03-16] MEDS: GABAPENTIN 600 MG TAB PO SCH (03:19)
[2022-03-16] MEDS: ACETAMINOPHEN 325 MG TAB PO PRN (03:46)
[2022-03-16 06:53] LABS: Hematocrit (blood only) 28.6 % (34.1-44.9); Hemoglobin 9.2 g/dl (12.0-16.0); Mean Corpuscular Hemoglobin 27.8 pg (25.0-34.0); Mean Corpuscular Hgb Conc 32.2 g/dL (32.0-36.0); Mean Corpuscular Volume 86.4 fL (80.0-100.0); Platelet Count 96 K/uL (130-400); RDW Coefficient of Variation 18.5 % (11.5-14.5); RDW Standard Deviation 57.7 fL (36.4-46.3); Red Blood Count 3.31 M/uL (3.93-5.22); White Blood Count 1.36 K/ul (4.8-10.8)
[2022-03-16 07:05] LABS: Albumin Globulin Ratio 1.2 (0.9-2); Albumin Level 3.2 gm/dl (3.4-5.0); BUN Creatinine Ratio 8.6 (10-20); Bilirubin,Total 0.8 mg/dl (0.2-1.0); Creatinine Clr Calc Pharmacy 84.2 ml/min; Est GFR (African American) 106.9 ml/min; Est GFR (Non-African American) 92.2 ml/min; Globulin 2.6 gm/dl (2.5-4.0); Potassium 3.4 mmol/L (3.5-5.1); Total Protein 5.8 gm/dl (6.0-8.3)
[2022-03-16 07:32] LABS: Target Cells 1+
[2022-03-16 07:40] LABS: Basophils # (auto) 0.02 K/uL (0-0.2); Basophils % (auto) 1.5 %; Eosinophils # (auto) 0.08 K/uL (0-0.50); Eosinophils % (auto) 5.9 %; Lymphocytes # (auto) 0.44 K/uL (1.2-3.4); Lymphocytes % (auto) 32.4 %; Monocytes # (auto) 0.25 K/uL (0.24-0.82); Monocytes % (auto) 18.4 %; Neutrophils # (auto) 0.57 K/uL (1.4-6.5); Neutrophils % (auto) 41.8 %
[2022-03-16] MEDS: NALTREXONE HCL 50 MG TAB PO SCH (08:07)
[2022-03-16] MEDS: PANTOprazole 40 MG TAB PO SCH (08:07)
[2022-03-16] MEDS: ESCITALOPRAM OXALATE 20 MG TAB PO SCH (08:07)
[2022-03-16] MEDS: CeleBREX 200 MG CAP PO SCH (08:08)
[2022-03-16] MEDS: FOLIC ACID 1 MG TAB PO SCH (08:08)
[2022-03-16] MEDS: METOPROLOL SUCC 25MG EXT REL TAB PO SCH (08:08)
[2022-03-16] MEDS ORDERED: POTASSIUM CHLORIDE CRTAB 20 MEQ TABCR PO STA (08:18)
[2022-03-16] MEDS: THIAMINE HCL 250 MG in SODIUM CHLORIDE 0.9% 50 ML IV SCH (08:19)
[2022-03-16 09:21] LABS: Ferritin 13.9 ng/ml (8-388)
--- NOTE | 2022-03-16 13:51 | Discharge Summary ---
Date of Service March 16, 2022 Admission HPI Per Admitting Provider 62 YOF with medical history of: SDH, Alcohol use disorder, chronic pain, depression, NICM, Hepatitis C, Gastritis. Patient comes to the EMD today at the direction of her PCP/[facility] for concern of serotonin syndrome. Patient reports that she woke up this morning "shaking all over and bouncing off the johnson". This started when she woke up and she took her 2 new prescriptions with a beer. Her symptoms stopped around 0830. Patient continued to drink beer this morning until coming to the EMD. The patient reports that she was recently started on BuSpar as well Abilify and she does not want to take these anymore because of her shaking. Patient endorses that she drinks 6-12 beers per day (anderson light) and does this every day. She reports that she does wish to stop drinking and is willing to be admitted for such. She understands that her symptoms are likely related to her alcohol use as they stop when she drinks. Patient has a curent ETOH level of 369 and thinks her last drink was around 1130 this morning. Patient will be admitted, placed on CIWA, given Thiamine and Folate. Will use Ativan and Librium for now versus Phenobarb as she is likely high risk for AMA leave. Will hold her Naltrexone as she is obviously continuing to drink. COVID test on admission is: NEGATIVE Principal Diagnosis alcohol withdrawal pancytopenia iron deficiency Discharge Exam The patient appeared well nourished and normally developed. Vital signs as documented. Head exam is normocephalic atraumatic Neck is without JVD, thyromegaly, or carotid bruits. Lungs are clear to auscultation, no focal loss of breath sounds Cardiac exam, Rhythm is regular.. No murmurs, rubs or gallops. Abdominal exam reveals normal bowel sounds, soft non tender, no masses Extremities are nonedematous and both pedal pulses are present Neurologic exam is alert and oriented, no focal loss of strength or sensation Skin is without bruises or rashes Psychologically is without concerns for anxiety or depression.. Discharge Data Allergies Allergy/AdvReac Type Severity Reaction Status Date / Time gabapentin AdvReac Severe Confusion Verified 03/11/22 17:14 acetaminophen [From Tylenol] AdvReac Unknown CONTRAINDICATED Verified 03/11/22 17:14 DUE TO LIVER ISSUES ibuprofen AdvReac Unknown CONTRAINDICATED Verified 03/11/22 17:14 DUE TO LIVER ISSUES Consultations 03/11/22 17:50 ED Decision to Admit Stat 03/11/22 22:17 Consult Psychiatry Routine Hospital Course (1) Alcohol intoxication: Patient comes in for tremors and balance instability that resolve with alcohol consumption - - Started on Librium Gabapentin and Ativan good relief and resolution of somatic symptoms we will begin tapering Librium on 03/15/2022 as the was the first day we had good control of her withdrawal symptoms -completed Gabapentin as inpatient, slower librium outpt taper, recommend iron and vitamin, close oupt provider follow up - Psych consultation, appreciate assistance, restarted naltrexone, will [facility] has appointment next week (2) Pancytopenia: - With neutropenia, ANC of 590 on 03/12 up to 650 on 03/13 - Continue neutropenic precautions likely bone marrow suppression from alcohol no atypical cells are noted iron deficieny noted so in addition to vitamin will ask to supplement iron twice a day (3) Liver cirrhosis: History of Hepatitis C - previously followed with GI - Stable (4) Elevated LFTs: - secondary alcohol abuse - Trending down, (5) Frequent falls: Secondary to alcohol misuse as well as chronic pain pt able to walk in halls (6) Depression: Continue her escitalopram- have room to increase if needed -Continue to hold BuSpar and Abilify (7) Chronic pain disorder: She reports that she takes two 324 mg aspirin every 4-6 hours for pain - neck and hip pain - history of cervical fusion, arthroscopy of shoulder - Continue Celebrex with BID PPI (8) Hypomagnesemia: - Repleted/normalized (9) COPD (chronic obstructive pulmonary disease): HX of without any inhalers of home and no PFTS recently - smattering of mention throughout chart and pt subjectively reports this as a diagnosis (10) Nonischemic cardiomyopathy: Chronic problem without evidence of acute exacerbation - continue with metoprolol (11) History of craniotomy: Secondary to falls Total Time Total Time Spent Total Time Spent (In Minutes): It required greater than 30 minutes to prepare this patient for discharge Discharge Plan Discharge Items Patient Disposition: Home - Self-Care Reason For Visit: ETOH ABUSE-REQUEST DETOX Discharge Diagnosis: ALCOHOL WITHDRAWAL PANCYTOPENIA IRON DEFICIENCY Activity: Per Instructions section Activity Comment: SLOWLY INCREASE ACTIVITY Non-emergency contact: Primary Care Provider Call non-emergency contact if: your symptoms worsen Follow-up/Referrals: Dorothy Valdes CRNP [Primary Care Provider] - Diet: Regular Addtl Attending Provider Instructions: Pancytopenia, is when you have low blood cell counts. It is felt that your blood counts should improve as you continue to abstain from alcohol. Your famil y doctor can check you blood at your follow up appointments. You have also been discovered to be iron deficient, you will be Rx a iron supplement, these should be taken every other day and have care to avoid constipation associated with this supplement. As we discussed you may consider discussion a colonoscopy to see if there are hemorrhoids or polyps in your bowel that may encourage blood and iron loss. The only way to beat your Alcoholism is to completely avoid alcohol and situations that place you at risk to relapse drinking. Involve as many family and friends to be your backup if you feel an urge to drink. consider AA or similar alcohol support groups. Publically admitting that you need help is a useful step to begin your journey toward sobriety. Please take a vitamin daily, yes a vitamin Pending Studies at Discharge: No Stand-Alone Forms: My [facility], Smoking Cessation Medications and DC Order Prescriptions: New ferrous sulfate 325 mg (65 mg iron) tablet 325 mg PO Q OTHER DAY Qty: 30 3RF meloxicam 15 mg tablet 15 mg PO DAILY Qty: 30 0RF chlordiazepoxide HCl 10 mg capsule 10 mg PO UD Qty: 20 0RF Rx Instructions: 2 bid x 2d, then 1 am 2 pm x 2 d, then 1 bid x 2d, then 1 each pm Continued metoprolol succinate 25 mg tablet extended release 24 hr 25 mg PO DAILY rizatriptan 10 mg tablet,disintegrating 10 mg PO DIRECTED MDD 3 DOSES/24 HOURS PRN (Reason: Migraine Headache) Rx Instructions: TAKE 10 MG AT ONSET OF YEPEZ, THEN REPEAT IN 2 HOURS IF NEEDED. MAX 3 DOSES/24 HOURS. magnesium oxide 400 mg (241.3 mg magnesium) Tablet 400 mg PO QAM Qty: 30 0RF Rx Instructions: OTC omeprazole 20 mg capsule,delayed release(DR/EC) 25 mg PO BID Qty: 60 0RF escitalopram oxalate 20 mg tablet 20 mg PO DAILY aripiprazole 5 mg tablet 5 mg PO DAILY Rx Instructions: STARTED 03/05/22, STOPPED PER PT, SO, "MD STOPPED". naltrexone 50 mg tablet 100 mg PO DAILY Qty: 30 0RF Discontinued vitamin B complex Tablet 1 tab PO QAM celecoxib 200 mg capsule 200 mg PO DAILY Rx Instructions: TAKE WITH FOOD acetaminophen 325 mg Tablet 650 mg PO Q8H PRN (Reason: pain) Qty: 30 0RF Rx Instructions: OTC folic acid 1 mg Tablet 1 mg PO QAM Qty: 30 0RF thiamine HCl (vitamin B1) [Vitamin B-1] 100 mg Tablet 100 mg PO QAM Qty: 30 0RF meloxicam 15 mg tablet 15 mg PO DAILY buspirone 15 mg tablet 15 mg PO BID Rx Instructions: STARTED 03/05/22, TOLD TO STOP PER PT, SO, " STOPPED TODAY". Discharge Orders: Discharge Order (Routine); Ordered 03/16/22 Ordered By: Trip Diana Admission Data Admit Date/Time: 03/11/22 18:21 Attending Provider: Trip Diana Admit Provider: Davey Duran Primary Care Provider: Dorothy Valdes Other Providers: Davey Duran ; Sangeeta Vargas ; Laura Guerra ; Lucia Millan Other Interventions: Discharge Summary Assessment (RN) Last Done: 03/16/22 12:38 Coding Level of Care Code D/C DAY MANAGEMENT >30 MINS Diagnoses Alcohol intoxication F10.920 Complication of substance-induced condition: uncomplicated Pancytopenia D61.818 Liver cirrhosis K74.60 Elevated LFTs R79.89 Frequent falls R29.6 Depression F32.A Chronic pain disorder G89.4 Hypomagnesemia E83.42 COPD (chronic obstructive pulmonary disease) J44.9 Nonischemic cardiomyopathy I42.8 History of craniotomy Z98.890
[2022-03-17] MEDS ORDERED: GABAPENTIN 600 MG TAB PO SCH (03:00)
== END 2022-03-16 14:11 | disposition home or self-care (01) | DRG 896 ==
LOC: ED 13:16 → EDINP 18:21 → SUATTDRO 18:21 → 2S 22:19
DX: Z86.19 Personal history of other infectious and parasitic diseases; I42.8 Other cardiomyopathies; R29.6 Repeated falls; G89.29 Other chronic pain; K70.30 Alcoholic cirrhosis of liver without ascites; D61.811 Other drug-induced pancytopenia; F10.221 Alcohol dependence with intoxication delirium; E83.42 Hypomagnesemia; F10.231 Alcohol dependence with withdrawal delirium; Z88.6 Allergy status to analgesic agent; J44.9 Chronic obstructive pulmonary disease, unspecified; K86.0 Alcohol-induced chronic pancreatitis

== ENCOUNTER 2023-04-20 15:53 | Inpatient (IN) ==
--- NOTE | 2023-04-20 16:34 | Emergency Department Note ---
History of Present Illness General Chief complaint: TIA Symptoms Stated complaint: STROKE LIKE SYMPTOMS Time Seen by Provider: 04/20/23 16:10 Source: patient and family (Sister at bedside) History of Present Illness Provider complaint: Strokelike symptoms Onset (ago): minute(s) (90) Maximum Pain Intensity: 0 63-year-old female presents emergency department for strokelike symptoms. Sister at bedside reports that they were at a green party at approximately 230 she became "frozen". She states she was unable to speak or unable to move. She states this lasted for approximately 30 minutes. No falls. No head trauma. No alcohol. Patient does have a history of seizure disorder however the sister states she did not have any seizure-like activity while she was with the patient. Home Medications Medication Instructions Recorded Confirmed Type metoprolol succinate 25 mg 25 mg PO DAILY 11/21/21 03/17/23 History tablet,extended release 24 hr rizatriptan 10 mg disintegrating 10 mg PO DIRECTED PRN Migraine 11/21/21 03/17/23 History tablet Headache meloxicam 15 mg tablet 15 mg PO DAILY #30 tabs 03/16/22 03/17/23 Rx vortioxetine 10 mg tablet 10 mg PO DAILY 06/03/22 03/17/23 History (Trintellix) hydroxychloroquine 200 mg tablet 200 mg PO BID #180 tabs 06/18/22 03/17/23 Rx calcium carbonate 600 mg-vitamin cap PO DAILY 08/02/22 03/17/23 History D3 12.5 mcg (500 unit) capsule (Calcium 600 with Vitamin D3) prenat.vits,cheng,puu-wxib-uxddw 1 tab PO DAILY 08/02/22 03/17/23 History cariprazine 1.5 mg capsule 1.5 mg PO DAILY 10/09/22 03/17/23 History (Vraylar) Allergies Allergy/AdvReac Type Severity Reaction Status Date / Time gabapentin AdvReac Severe Confusion Verified 03/17/23 14:46 acetaminophen [From Tylenol] AdvReac Unknown CONTRAINDICATED Verified 03/17/23 14:46 DUE TO LIVER ISSUES ibuprofen AdvReac Unknown CONTRAINDICATED Verified 03/17/23 14:46 DUE TO LIVER ISSUES Past Med/Surg History Medical History Alcohol intoxication Alcoholism Chronic hyponatremia Chronic pancreatitis COPD (chronic obstructive pulmonary disease) Displacement 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 (08/22/11) History of craniotomy Due to subdural hematoma from fall History of tobacco abuse Nonischemic cardiomyopathy Positive ROSANGELA (antinuclear antibody) Seizure disorder (05/16/12) Severe pulmonary arterial systolic hypertension Thrombocytopenia Uterine leiomyoma (07/18/11) Surgical History History of arthroscopic procedure on shoulder History of onel hole surgery History of carpal tunnel surgery History of cholecystectomy History of hysterectomy S/P cervical spinal fusion Family History Mother Hypertension Social History Smoking Status: Never smoker Tobacco Type: Cigarettes Second Hand Exposure: No; Do You Dip or Chew Tobacco: No; Hx Alcohol Use: Yes Alcohol type: beer Alcohol Intake Frequency Comment: 5 beers/day Hx Substance Use: No Preferred Language: Persian Communication Ability: Effective Electronic Calibration Technician Required: No Beliefs That Will Affect Care: None marital status: Single Current Living Situation: Spouse current occupational status: unemployed How many Children do You have: 0 Feels Safe at Home: Yes Assistive Devices: None Physical Exam Vital Signs Vital Signs - 24 hr 04/20/23 15:59 04/20/23 17:04 Temperature 36.3 C L Temperature Source Temporal Artery Scan Pulse Rate 63 70 Respiratory Rate 16 Blood Pressure 174/94 H Blood Pressure Mean 120 Pulse Oximetry 99 Oxygen Delivery Method Room Air Sepsis Recent Fever Within 48 Hours No Sepsis New/Unexplained Change in Mental Status N/A Sepsis Action Taken by Nursing No Action Required Physical Exam GENERAL: She is oriented to person, place, and time. She appears well-developed and well-nourished. She does not appear distressed. HENT: Exam performed. -Head: Normocephalic and atraumatic. -Right Ear: External ear normal. No mastoid erythema -Left Ear: External ear normal. No mastoid erythema -Mouth/Throat: The oropharynx is clear and moist. No trismus in the jaw. No dental abscesses or uvula swelling. No oropharyngeal exudate or tonsillar abscesses. EYES: Conjunctivae and EOM are normal. Pupils are equal, round, and reactive to light. Right eye exhibits no discharge. Left eye exhibits no discharge. No scleral icterus. NECK: Normal range of motion. Neck supple. No JVD present. No spinous process tenderness present. No rigidity. No tracheal deviation and normal range of motion present. CV: Normal rate, regular rhythm, normal heart sounds and intact distal pulses. There is no peripheral edema. Palpable radial pulses bue. PULM/CHEST: Effort normal and breath sounds normal. No respiratory distress. No stridor. She has no wheezes. She has no rales. ABD: The abdomen is soft.There is no tenderness. There is no rebound, no guarding MUSC/SKEL: Normal range of motion. There is no peripheral edema, tenderness or deformity. Pelvis stable. NEURO: She is alert and oriented to person, place, and time. She has normal strength. No cranial nerve deficit or sensory deficit. Coordination and gait normal. GCS eye subscore is 4. GCS verbal subscore is 5. GCS motor subscore is 6. Cerebellar tests wnl. NIHSS: 0 Course Course 1610: The patient was evaluated in room A10. A complete history and physical ex am was performed Cardiac monitoring: An order was placed for continuous cardiac monitoring. The monitor shows a rate of 70 with sinus rhythm interpreted by nc NIHSS 0. It seems as though the patient's symptoms have resolved. No stroke alert will be called at this time. 1754: Vital signs stable. On reassessment the patient is neurologically intact no meningeal signs no focal neurological deficits NIHSS 0 imaging within normal limits no ICH no stroke no occlusion in the angios of the head and neck. Labs show a white blood cell count of 2.96 platelet count of 119. Patient has a chronic leukopenia and thrombocytopenia. VBG within normal limits. Sodium 123 POC potassium 4.8. Serum alcohol negative. IV fluids will be started on the patient gently to not correct her sodium too fast. No hypertonic saline at this point as the patient has returned to her baseline neurological status. [facility] Dejesus notified. Administered Medications Discontinued Medications Ioversol (Ioversol 350 Mg 125ml Prefilled Syringe) 115 ml IV ONCE ONE Stop: 04/20/23 16:48 Last Admin: 04/20/23 16:47 Dose: 115 ml Documented By: MIGUEL ANGEL Medical Decision Making Laboratory Data Attestation: I reviewed the patient's lab results. 04/20/23 16:30 04/20/23 16:30 Lab Results 04/20/23 04/20/23 04/20/23 Range/Units 16:30 16:30 16:30 WBC 2.96 L (4.8-10.8) K/ul RBC 3.81 L (4.20-5.40) M/uL Hgb 13.1 (12.0-16.0) g/dl POC Hgb (12.0-16.0) g/dl Hct 37.7 (37.0-47.0) % POC Hct (37-47) % MCV 99.0 (80.0-100.0) fL MCH 34.4 H (25.0-34.0) pg MCHC 34.7 (32.0-36.0) g/dL RDW Std Deviation 43.4 (36.4-46.3) fL RDW Coeff of [place] 11.9 (11.5-14.5) % Plt Count 119 L (130-400) K/uL MPV 8.5 L (9.4-12.4) fL PT Cancelled INR Cancelled APTT Cancelled PTT Ratio Cancelled VBG pH (7.36-7.41) VBG pCO2 (38-50) mmHg VBG pO2 mmHg VBG HCO3 mmol/L VBG O2 Saturation % VBG Base Excess mEq/L POC Sodium (135-144) mmol/L Sodium 123 L (136-145) mmol/L POC Potassium (3.3-5.0) mmol/L Potassium TNP POC Chloride (101-112) mmol/L Chloride 90 L (98-107) mmol/L Carbon Dioxide 26 (21-32) mmol/L POC Total CO2 (24-31) mmol/L Anion Gap 7 (3-11) POC Anion Gap (16-25) mmol/L POC BUN (7-18) mg/dl BUN 17 (6-23) mg/dl Creatinine 0.82 (0.6-1.2) mg/dl POC Creatinine (0.6-1.3) mg/dl Est Cr Clr Drug Dosing 71.8 ml/min Est GFR ( Amer) 87.6 ml/min Est GFR (Non-Af Amer) 75.6 ml/min BUN/Creatinine Ratio 20.7 H (10-20) Glucose 81 (70-99(Fasting)) mg/dl POC Glucose (70-99) mg/dl POC Glucose (other) (70-99) mg/dl Calcium 8.9 (8.6-10.3) mg/dl POC Ioniz Calcium Kar (1.12-1.32) mmol/l Magnesium 1.9 (1.7-2.4) mg/dl Total Bilirubin 0.8 (0.2-1.0) mg/dl AST TNP ALT 85 H (7-52) U/L Alkaline Phosphatase 43 (34-104) U/L Ammonia Total Protein 6.7 (6.0-8.3) gm/dl Albumin 4.5 (3.4-5.0) gm/dl Globulin 2.2 L (2.5-4.0) gm/dl Albumin/Globulin Ratio 2.0 (0.9-2) Lipase 41 (11-82) U/L Ethyl Alcohol mg/dL (<10.0) mg/dl 04/20/23 04/20/23 04/20/23 Range/Units 16:30 16:30 16:30 WBC (4.8-10.8) K/ul RBC (4.20-5.40) M/uL Hgb (12.0-16.0) g/dl POC Hgb (12.0-16.0) g/dl Hct (37.0-47.0) % POC Hct (37-47) % MCV (80.0-100.0) fL MCH (25.0-34.0) pg MCHC (32.0-36.0) g/dL RDW Std Deviation (36.4-46.3) fL RDW Coeff of [place] (11.5-14.5) % Plt Count (130-400) K/uL MPV (9.4-12.4) fL PT INR APTT PTT Ratio VBG pH 7.39 (7.36-7.41) VBG pCO2 47 (38-50) mmHg VBG pO2 59 mmHg VBG HCO3 29 mmol/L VBG O2 Saturation 90.6 % VBG Base Excess 2.8 mEq/L POC Sodium (135-144) mmol/L Sodium (136-145) mmol/L POC Potassium (3.3-5.0) mmol/L Potassium POC Chloride (101-112) mmol/L Chloride (98-107) mmol/L Carbon Dioxide (21-32) mmol/L POC Total CO2 (24-31) mmol/L Anion Gap (3-11) POC Anion Gap (16-25) mmol/L POC BUN (7-18) mg/dl BUN (6-23) mg/dl Creatinine (0.6-1.2) mg/dl POC Creatinine (0.6-1.3) mg/dl Est Cr Clr Drug Dosing ml/min Est GFR ( Amer) ml/min Est GFR (Non-Af Amer) ml/min BUN/Creatinine Ratio (10-20) Glucose (70-99(Fasting)) mg/dl POC Glucose (70-99) mg/dl POC Glucose (other) (70-99) mg/dl Calcium (8.6-10.3) mg/dl POC Ioniz Calcium Kar (1.12-1.32) mmol/l Magnesium (1.7-2.4) mg/dl Total Bilirubin (0.2-1.0) mg/dl AST ALT (7-52) U/L Alkaline Phosphatase (34-104) U/L Ammonia TNP Total Protein (6.0-8.3) gm/dl Albumin (3.4-5.0) gm/dl Globulin (2.5-4.0) gm/dl Albumin/Globulin Ratio (0.9-2) Lipase (11-82) U/L Ethyl Alcohol mg/dL < 10.0 (<10.0) mg/dl 04/20/23 04/20/23 04/20/23 Range/Units 16:33 16:59 17:21 WBC (4.8-10.8) K/ul RBC (4.20-5.40) M/uL Hgb (12.0-16.0) g/dl POC Hgb 14.3 (12.0-16.0) g/dl Hct (37.0-47.0) % POC Hct 42 (37-47) % MCV (80.0-100.0) fL MCH (25.0-34.0) pg MCHC (32.0-36.0) g/dL RDW Std Deviation (36.4-46.3) fL RDW Coeff of [place] (11.5-14.5) % Plt Count (130-400) K/uL MPV (9.4-12.4) fL PT INR APTT PTT Ratio VBG pH (7.36-7.41) VBG pCO2 (38-50) mmHg VBG pO2 mmHg VBG HCO3 mmol/L VBG O2 Saturation % VBG Base Excess mEq/L POC Sodium 123 L (135-144) mmol/L Sodium (136-145) mmol/L POC Potassium 4.8 (3.3-5.0) mmol/L Potassium POC Chloride 91 L (101-112) mmol/L Chloride (98-107) mmol/L Carbon Dioxide (21-32) mmol/L POC Total CO2 25 (24-31) mmol/L Anion Gap (3-11) POC Anion Gap 13.0 L (16-25) mmol/L POC BUN 21 H (7-18) mg/dl BUN (6-23) mg/dl Creatinine (0.6-1.2) mg/dl POC Creatinine 0.9 (0.6-1.3) mg/dl Est Cr Clr Drug Dosing ml/min Est GFR ( Amer) ml/min Est GFR (Non-Af Amer) ml/min BUN/Creatinine Ratio (10-20) Glucose (70-99(Fasting)) mg/dl POC Glucose 94 (70-99) mg/dl POC Glucose (other) 83 (70-99) mg/dl Calcium (8.6-10.3) mg/dl POC Ioniz Calcium Kar 1.06 L (1.12-1.32) mmol/l Magnesium (1.7-2.4) mg/dl Total Bilirubin (0.2-1.0) mg/dl AST ALT (7-52) U/L Alkaline Phosphatase (34-104) U/L Ammonia 39.0 Total Protein (6.0-8.3) gm/dl Albumin (3.4-5.0) gm/dl Globulin (2.5-4.0) gm/dl Albumin/Globulin Ratio (0.9-2) Lipase (11-82) U/L Ethyl Alcohol mg/dL (<10.0) mg/dl Imaging Data Attestation: I personally reviewed and interpreted this imaging study as follows: My Impression: Chest x-ray negative. Airway clear. No pneumothorax. No consolidation. No cardiomegaly or cephalization.. No free air under the diaphragm. No fractures of the skeletal structures. Radiologist's Impression: Chest X-Ray 04/20/23 16:05 XR chest 1V portable HISTORY: Stroke symptoms. COMPARISON: Chest 03/11/2022. FINDINGS: No pneumothorax. No pleural effusions. The lungs are clear. The heart is normal in size. Cervical spinal fusion hardware is again noted. No acute fractures. No evidence for pulmonary edema. IMPRESSION: No significant change compared to the prior study. No acute process. ACT 112: Negative or not required by law. Electronically signed by: Charan Miles M.D. 04/20/2023 5:[address] 04/20/23 16:[address] DOSE: HISTORY: Neuro deficit, acute, stroke suspected TECHNIQUE: Multiaxial CT images of the head were performed without the use of intravenous contrast. Automated exposure control was utilized for this study. A dose lowering technique was utilized adhering to the principles of ALARA. Comparison: Head CT 01/30/2022. Findings: The paranasal sinuses and mastoid air cells are clear. The calvarium and skull base are intact. There is no mass, hematoma, midline shift, acute infarct. White matter hypodensity is nonspecific but suggestive of microvascular ischemic change. The ventricles and sulci demonstrate mild age-related involutional changes. Right-sided craniotomy changes again noted. Impression: No significant change compared to the prior study. No acute intracranial abnormality. ACT 112: Negative or not required by law. Electronically signed by: hCaran Miles M.D. 04/20/2023 4:59 PM Head CTA 04/20/23 16:18 HEAD & NECK CTA HISTORY: Weakness. Dizziness. tia symptoms TECHNIQUE: Multiaxial CT images of the head were performed following the intravenous administration of contrast to evaluate the major cerebral vessels. Multiaxial CT images of the neck were also performed following the intravenous administration of contrast to evaluate the major cervical vessels. 3D/MIP images were also obtained. Sagittal and coronal reformats were reviewed. A dose lowering technique was utilized adhering to the principles of ALARA. COMPARISON: Head CT 04/20/2023. FINDINGS: There is no mass, hematoma, midline shift, or acute infarct. Visualized intracranial internal carotid arteries, distal vertebral arteries, and basilar artery are widely patent. There is no significant stenosis, occlusion, or aneurysm seen within the bilateral ACAs, MCAs, or president and ceo. The distal left vertebral artery terminates into the left posterior inferior cerebellar artery. This is considered to be a normal variant. The basilar artery is fed through the right vertebral artery. The distal basilar artery is hypoplastic due to the bilateral posterior circulations. These are also considered to be normal variants. Calcified plaque within the bilateral carotid siphons. The major dural venous sinuses are patent. Right-sided craniotomy changes again noted. The aortic arch and proximal great vessels are widely patent. There is no significant stenosis, occlusion, or dissection identified within the bilateral common carotid, left internal carotid, or vertebral arteries. Cervical spinal fusion hardware is noted. Hypoplastic left vertebral artery. Mild calcified plaque within the left carotid bifurcation. There is moderate calcified plaque within the right carotid bifurcation resulting in focal stenosis of the proximal right internal carotid artery of approximately 40%. The right common carotid artery is widely patent. IMPRESSION: 1. No significant stenosis, occlusion, or aneurysm within the [place]. 2. No significant stenosis, occlusion, or dissection identified within the left carotid or bilateral vertebral arteries. 3. Approximately 40% focal stenosis within the proximal right internal carotid artery due to the calcified plaque. ACT 112: Negative or not required by law. Electronically signed by: Charan Miles M.D. 04/20/2023 5:05 PM Neck CTA 04/20/23 16:18 HEAD & NECK CTA HISTORY: Weakness. Dizziness. tia symptoms TECHNIQUE: Multiaxial CT images of the head were performed following the intravenous administration of contrast to evaluate the major cerebral vessels. Multiaxial CT images of the neck were also performed following the intravenous administration of contrast to evaluate the major cervical vessels. 3D/MIP images were also obtained. Sagittal and coronal reformats were reviewed. A dose lowering technique was utilized adhering to the principles of ALARA. COMPARISON: Head CT 04/20/2023. FINDINGS: There is no mass, hematoma, midline shift, or acute infarct. Visualized intracranial internal carotid arteries, distal vertebral arteries, and basilar artery are widely patent. There is no significant stenosis, occlusion, or aneurysm seen within the bilateral ACAs, MCAs, or president and ceo. The distal left vertebral artery terminates into the left posterior inferior cerebellar artery. This is considered to be a normal variant. The basilar artery is fed through the right vertebral artery. The distal basilar artery is hypoplastic due to the bilateral posterior circulations. These are also considered to be normal variants. Calcified plaque within the bilateral carotid siphons. The major dural venous sinuses are patent. Right-sided craniotomy changes again noted. The aortic arch and proximal great vessels are widely patent. There is no significant stenosis, occlusion, or dissection identified within the bilateral common carotid, left internal carotid, or vertebral arteries. Cervical spinal fusion hardware is noted. Hypoplastic left vertebral artery. Mild calcified plaque within the left carotid bifurcation. There is moderate calcified plaque within the right carotid bifurcation resulting in focal stenosis of the proximal right internal carotid artery of approximately 40%. The right common carotid artery is widely patent. IMPRESSION: 1. No significant stenosis, occlusion, or aneurysm within the [place]. 2. No significant stenosis, occlusion, or dissection identified within the left carotid or bilateral vertebral arteries. 3. Approximately 40% focal stenosis within the proximal right internal carotid artery due to the calcified plaque. ACT 112: Negative or not required by law. Electronically signed by: Charan Miles M.D. 04/20/2023 5:05 PM ECG Data Attestation: I personally reviewed and interpreted this ECG as follows: Rate (beats per minute): 66 Rhythm: + normal sinus ECG Intervals/blocks: + Normal [place] and + Normal QT-c ECG ST segments: + Normal ST segments Additional Comments: QRS 76 MDM Narrative 1610: The patient was evaluated in room A10. A complete history and physical exam was performed Cardiac monitoring: An order was placed for continuous cardiac monitoring. The monitor shows a rate of 70 with sinus rhythm interpreted by me NIHSS 0. It seems as though the patient's symptoms have resolved. No stroke alert will be called at this time. 1754: Vital signs stable. On reassessment the patient is neurologically intact no meningeal signs no focal neurological deficits NIHSS 0 imaging within normal limits no ICH no stroke no occlusion in the angios of the head and neck. Labs show a white blood cell count of 2.96 platelet count of 119. Patient has a chronic leukopenia and thrombocytopenia. VBG within normal limits. Sodium 123 POC potassium 4.8. Serum alcohol negative. IV fluids will be started on the patient gently to not correct her sodium too fast. No hypertonic saline at this point as the patient has returned to her baseline neurological status. Patient will be admitted to the [facility] hospitalist team Dr. Dejesus notified. Impression & Plan Hyponatremia Discharge Plan Visit Data Chief Complaint: TIA Symptoms Stated Complaint: STROKE LIKE SYMPTOMS ED Provider: Chris Hayes Discharge Problem: Hyponatremia Patient Disposition: Admitted As Inpatient Forms Stand Alone Forms: My [facility] Prescriptions Prescriptions: No Action calcium carbonate-vitamin D3 [Calcium 600 with Vitamin D3] 600 mg-12.5 mcg (500 unit) capsule PO DAILY prenat.vits,cheng,[id number]-[id number]-jlpmz Tablet 1 tab PO DAILY Vraylar 1.5 mg capsule 1.5 mg PO DAILY hydroxychloroquine 200 mg tablet 200 mg PO BID Qty: 180 3RF Trintellix 10 mg tablet 10 mg PO DAILY triamcinolone acetonide [Kenalog] 40 mg/mL suspension 40 mg intra-articular ONCE Qty: 1 0RF metoprolol succinate 25 mg tablet extended release 24 hr 25 mg PO DAILY rizatriptan 10 mg tablet,disintegrating 10 mg PO DIRECTED MDD 3 DOSES/24 HOURS PRN (Reason: Migraine Headache) Rx Instructions: TAKE 10 MG AT ONSET OF [place]PE[place], THEN REPEAT IN 2 HOURS IF NEEDED. MAX 3 DOSES/24 HOURS. meloxicam 15 mg tablet 15 mg PO DAILY Qty: 30 0RF Referrals Referrals: Dorothy Valdes CRNP [Outside Practitioners] -
[2023-04-20] MEDS ORDERED: IOVERSOL 350 MG 125mL Prefilled Syringe IV ONE (16:47)
[2023-04-20 16:49] LABS: Base Excess VBG 2.8 mEq/L; HCO3 VBG 29 mmol/L; Oxygen Saturation VBG 90.6 %; PCO2 VBG 47 mmHg (38-50); PO2 VBG 59 mmHg; pH VBG 7.39 (7.36-7.41)
[2023-04-20 16:55] LABS: Hematocrit (blood only) 37.7 % (37.0-47.0); Hemoglobin 13.1 g/dl (12.0-16.0); Mean Corpuscular Hemoglobin 34.4 pg (25.0-34.0); Mean Corpuscular Hgb Conc 34.7 g/dL (32.0-36.0); Mean Platelet Volume 8.5 fL (9.4-12.4); Platelet Count 119 K/uL (130-400); RDW Coefficient of Variation 11.9 % (11.5-14.5); RDW Standard Deviation 43.4 fL (36.4-46.3); Red Blood Count 3.81 M/uL (4.20-5.40); White Blood Count 2.96 K/ul (4.8-10.8)
--- NOTE | 2023-04-20 17:01 | CT Scan Report ---
HEAD CT NONCONTRAST CT DOSE: HISTORY: Neuro deficit, acute, stroke suspected TECHNIQUE: Multiaxial CT images of the head were performed without the use of intravenous contrast. A utomated exposure control was utilized for this study. A dose lowering technique was utilized adheri ng to the principles of ALARA. Comparison: Head CT 01/30/2022. Findings: The paranasal sinuses and mastoid air cells are clear. The calvarium and skull base are int act. There is no mass, hematoma, midline shift, acute infarct. White matter hypodensity is nonspecifi c but suggestive of microvascular ischemic change. The ventricles and sulci demonstrate mild age-rela eladia involutional changes. Right-sided craniotomy changes again noted. Impression: No significant change compared to the prior study. No acute intracranial abnormality. ACT 112: Negative or not required by law. Electronically signed by: Charan Miles M.D. 04/20/2023 4:59 PM
--- NOTE | 2023-04-20 17:07 | CT Scan Report ---
HEAD & NECK CTA HISTORY: Weakness. Dizziness. tia symptoms TECHNIQUE: Multiaxial CT images of the head were performed following the intravenous administration of contrast to evaluate the major cerebral vessels. Multiaxial CT images of the neck were also perfor med following the intravenous administration of contrast to evaluate the major cervical vessels. 3D/M IP images were also obtained. Sagittal and coronal reformats were reviewed. A dose lowering technique was utilized adhering to the principles of ALARA. COMPARISON: Head CT 04/20/2023. FINDINGS: There is no mass, hematoma, midline shift, or acute infarct. Visualized intracranial internal carotid arteries, distal vertebral arteries, and basilar artery are widely patent. There is no significant s tenosis, occlusion, or aneurysm seen within the bilateral ACAs, MCAs, or machine buffer. The distal left verteb ral artery terminates into the left posterior inferior cerebellar artery. This is considered to be a normal variant. The basilar artery is fed through the right vertebral artery. The distal basilar wilfredo ry is hypoplastic due to the bilateral posterior circulations. These are also considered to be normal variants. Calcified plaque within the bilateral carotid siphons. The major dural venous sinuse s are patent. Right-sided craniotomy changes again noted. The aortic arch and proximal great vessels are widely patent. There is no significant stenosis, occ lusion, or dissection identified within the bilateral common carotid, left internal carotid, or verte bral arteries. Cervical spinal fusion hardware is noted. Hypoplastic left vertebral artery. Mild calc ified plaque within the left carotid bifurcation. There is moderate calcified plaque within the right carotid bifurcation resulting in focal stenosis of the proximal right internal carotid artery of bin roximately 40%. The right common carotid artery is widely patent. IMPRESSION: 1. No significant stenosis, occlusion, or aneurysm within the [place]. 2. No significant stenosis, occlusion, or dissection identified within the left carotid or bilateral vertebral arteries. 3. Approximately 40% focal stenosis within the proximal right internal carotid artery due to the calc ified plaque. ACT 112: Negative or not required by law. Electronically signed by: Charan Miles M.D. 04/20/2023 5:05 PM
--- NOTE | 2023-04-20 17:07 | CT Scan Report ---
HEAD & NECK CTA HISTORY: Weakness. Dizziness. tia symptoms TECHNIQUE: Multiaxial CT images of the head were performed following the intravenous administration of contrast to evaluate the major cerebral vessels. Multiaxial CT images of the neck were also perfor med following the intravenous administration of contrast to evaluate the major cervical vessels. 3D/M IP images were also obtained. Sagittal and coronal reformats were reviewed. A dose lowering technique was utilized adhering to the principles of ALARA. COMPARISON: Head CT 04/20/2023. FINDINGS: There is no mass, hematoma, midline shift, or acute infarct. Visualized intracranial internal carotid arteries, distal vertebral arteries, and basilar artery are widely patent. There is no significant s tenosis, occlusion, or aneurysm seen within the bilateral ACAs, MCAs, or tool and die repairer. The distal left verteb ral artery terminates into the left posterior inferior cerebellar artery. This is considered to be a normal variant. The basilar artery is fed through the right vertebral artery. The distal basilar wilfredo ry is hypoplastic due to the bilateral posterior circulations. These are also considered to be normal variants. Calcified plaque within the bilateral carotid siphons. The major dural venous sinuse s are patent. Right-sided craniotomy changes again noted. The aortic arch and proximal great vessels are widely patent. There is no significant stenosis, occ lusion, or dissection identified within the bilateral common carotid, left internal carotid, or verte bral arteries. Cervical spinal fusion hardware is noted. Hypoplastic left vertebral artery. Mild calc ified plaque within the left carotid bifurcation. There is moderate calcified plaque within the right carotid bifurcation resulting in focal stenosis of the proximal right internal carotid artery of bin roximately 40%. The right common carotid artery is widely patent. IMPRESSION: 1. No significant stenosis, occlusion, or aneurysm within the [place]. 2. No significant stenosis, occlusion, or dissection identified within the left carotid or bilateral vertebral arteries. 3. Approximately 40% focal stenosis within the proximal right internal carotid artery due to the calc ified plaque. ACT 112: Negative or not required by law. Electronically signed by: Charan Miles M.D. 04/20/2023 5:05 PM
[2023-04-20 17:09] LABS: iSTAT Creatinine 0.9 mg/dl (0.6-1.3); iSTAT Hemoglobin 14.3 g/dl (12.0-16.0); iSTAT Ionized Calcium 1.06 mmol/l (1.12-1.32); iSTAT Potassium 4.8 mmol/L (3.3-5.0)
[2023-04-20 17:19] LABS: Alanine Aminotransferase 85 U/L (7-52); Albumin Level 4.5 gm/dl (3.4-5.0); Alkaline Phosphatase 43 U/L (34-104); Anion Gap 7 (3-11); BUN Creatinine Ratio 20.7 (10-20); Bilirubin,Total 0.8 mg/dl (0.2-1.0); Blood Urea Nitrogen 17 mg/dl (6-23); Calcium 8.9 mg/dl (8.6-10.3); Carbon Dioxide 26 mmol/L (21-32); Chloride 90 mmol/L (98-107); Creatinine Clr Calc Pharmacy 71.8 ml/min; Est GFR (African American) 87.6 ml/min; Est GFR (Non-African American) 75.6 ml/min; Globulin 2.2 gm/dl (2.5-4.0); Glucose 81 mg/dl (70-99(Fasting)); Lipase 41 U/L (11-82); Magnesium 1.9 mg/dl (1.7-2.4); Sodium 123 mmol/L (136-145); Total Protein 6.7 gm/dl (6.0-8.3)
--- NOTE | 2023-04-20 17:29 | XRay Report ---
XR chest 1V portable HISTORY: Stroke symptoms. COMPARISON: Chest 03/11/2022. FINDINGS: No pneumothorax. No pleural effusions. The lungs are clear. The heart is normal in size. Ce rvical spinal fusion hardware is again noted. No acute fractures. No evidence for pulmonary edema. IMPRESSION: No significant change compared to the prior study. No acute process. ACT 112: Negative or not required by law. Electronically signed by: Charan Miles M.D. 04/20/2023 5:28 PM
[2023-04-20 17:59] LABS: Potassium 4.4 mmol/L (3.5-5.1)
[2023-04-20] MEDS ORDERED: SODIUM CHLORIDE 0.9% 1,000 ML IV SCH (18:00)
--- NOTE | 2023-04-20 18:07 | History & Physical Report ---
Date of Service April 20, 2023 Assessment & Plan (1) TIA (transient ischemic attack): Plan: Weakness ~1 minute of overall weakness, aphasia without LoC or shaking with some residual weakness x30 minutes. Not consistent with seizure. Will obtain MRI to r/o CVA. DDx includes TIA (less likely, sx bilateral without clear territory), and hyponatremia Recommended for TIA eval CTAhead/neck: No acute findings. 40% right ICA stenosis CThead: No acute findings, microvascular ischemic change suspected. Right- sided craniotomy stable CXR: No acute finding Chronic leukopenia, thrombocytopenia. Hemoglobin normal at 13.1, borderline normocytic. Patient is with hyponatremia, no as noted below Subacute hyponatremia Creatinine 0.82 likely euvolemic Alcohol negative BSG 81, no pseudohyponatremia Urine sodium, urine osmolality, serum osmolality pending Suspect SIADH in the setting of starting new antipsychotic with progressive brain fog and weakness since that time Given acute symptoms of weakness and some stomach cramps with low sodium will give small bolus 50 cc of 3% saline, fluid restrict, and trend BMP every 4 hours. Fluid restrict Goal max sodium improvement 8 mEq per 24 hours. If rising greater than 500cc D5 boluses as needed to adjust Anxiety/Depression - Recently started of Bexiprazole with subsequent progressive foggyness. Suspect induced hyponatremia. Will hold both this and trazodone. - melatonin qHS for sleep - Continue Positive ROSANGELA Follows with rheumatology as an outpatient. Has had chronic joint pain worse in shoulder, not improved on hydroxychloroquine. Aggressive steroid/immunosuppressants were not recommended. Discontinued hydroxychloroquin No acute change in management at this time Seizure disorder, history of craniotomy Follows with [facility] History of TBI and subdural hematoma with craniotomy 2010. Subsequently with seizure disorder on Keppra and stable. Does have history of nonepileptic seizures as well, possibly triggered by alcohol abuse. No residual neurologic deficits from her TBI. She did not have seizures for over 3 years without Keppra or anticonvulsant therapy and this was therefore not continued We will keep on seizure precautions given risk and hyponatremia history of alcohol abuse Previously within minutes for alcohol intoxication. Has followed up with [facility] and had naltrexone restarted 2021 Liver cirrhosis History of hepatitis C Follows with GI No evidence of congestion/volume overload at this etiology of hyponatremia. Will follow urine studies as above COPD No inhalers at home No wheezing No acute management at this time DVT PPx: SCDs, lovenox CODE: Full Diet: Fluid Restricted Dispo: PCU until Na > 130 (2) Seizure disorder: (3) COPD (chronic obstructive pulmonary disease): (4) Alcoholism: (5) Chronic pancreatitis: (6) Severe pulmonary arterial systolic hypertension: (7) Nonischemic cardiomyopathy: (8) Liver cirrhosis: (9) Pancytopenia: (10) Thrombocytopenia: History of Present Illness Primary Care Provider: NO PCP Nury is a 63-year-old female with past medical history of nonischemic cardiomyopathy, COPD with tobacco abuse, alcohol abuse, seizure disorder without recent seizures, positive ROSANGELA, cirrhosis, history of craniotomy bur hole Nury was at a friends house and they noticed midway through she was 'nolonger in the conversation.' Was not responding or reaction and appeared confused and had word finding difficulty. She reports she did not lose conciousness or pass out, but felt very weak and had trouble moving and responding 'like my body was asleep'. Worst of it passed after 30seconds-1 minute, but then felt a little off for ~30 minutes after. Skippers weak all over 'and kind of just froze'. Skippers numb in the arms and legs, both sides without either side beign particularly worse. No chest pain or chest pressure No bowel or bladder incontience Did not feel similar to prior seizures 10years ago, this felt different and new. No longer on seizure meds, no seizure in 10 yrs She reports she has been thirsty and drinking a lot in the last fe wdays. Appetite is a little less so taking more protein shakes. Hx of alcoholism in remission. has been drinking non-alocholic beer daily, but no alcohol intake in the last year. Last day was March 11 2022. Peeing normally. no dysuria. "No change. Including at night about 3 times per 24 hours, surprised its not more for how much I drink' Dry cough and allergies all summer/spring, worse at night but no change recently. Benadryl nightly seems to help a little. Also intermittent itching with no rash. Recently had Rexulti (bexiprazole) added ot antidepressant regimen 2 months ago. Has felt more 'brain fog' like being a little 'dumbed down' since starting this. Also takes buspar Medical History: Reviewed Medications: Reviewed Surgical History: Reviewed Family history: Reviewed Allergies: Reviewed Social History: Former etoh use in remission. Code Status: Full Allergies Allergy/AdvReac Type Severity Reaction Status Date / Time gabapentin AdvReac Severe Confusion Verified 03/17/23 14:46 acetaminophen [From Tylenol] AdvReac Unknown CONTRAINDICATED Verified 03/17/23 14:46 DUE TO LIVER ISSUES ibuprofen AdvReac Unknown CONTRAINDICATED Verified 03/17/23 14:46 DUE TO LIVER ISSUES Home Medications Medication Instructions Recorded Confirmed Type metoprolol succinate 25 mg 25 mg PO DAILY 11/21/21 04/20/23 History tablet,extended release 24 hr rizatriptan 10 mg disintegrating 10 mg PO DIRECTED PRN Migraine 11/21/21 04/20/23 History tablet Headache meloxicam 15 mg tablet 15 mg PO DAILY #30 tabs 03/16/22 04/20/23 Rx vortioxetine 10 mg tablet 10 mg PO DAILY 06/03/22 04/20/23 History (Trintellix) calcium carbonate 600 mg-vitamin 1 cap PO DAILY 08/02/22 04/20/23 History D3 12.5 mcg (500 unit) capsule (Calcium 600 with Vitamin D3) alendronate 35 mg tablet 35 mg PO WK 04/20/23 04/20/23 History brexpiprazole 0.5 mg tablet 0.5 mg PO HS 04/20/23 04/20/23 History (Rexulti) buspirone 30 mg tablet 30 mg PO BID 04/20/23 04/20/23 History diazepam 5 mg tablet 5 mg PO DAILY PRN Anxiety 04/20/23 04/20/23 History multivitamin-ferrous 1 tab PO DAILY 04/20/23 04/20/23 History fumarate-folic acid 18 mg-400 mcg tablet (Centrum Women) omeprazole 40 mg capsule,delayed 40 mg PO DAILY 04/20/23 04/20/23 History release trazodone 150 mg tablet 150 mg PO HS PRN Sleep 04/20/23 04/20/23 History Past Med/Surg History Medical History Alcohol intoxication Alcoholism Chronic hyponatremia Chronic pancreatitis COPD (chronic obstructive pulmonary disease) Displacement 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 (08/22/11) History of craniotomy Due to subdural hematoma from fall History of tobacco abuse Nonischemic cardiomyopathy Positive ROSANGELA (antinuclear antibody) Seizure disorder (05/16/12) Severe pulmonary arterial systolic hypertension Thrombocytopenia Uterine leiomyoma (07/18/11) Surgical History History of arthroscopic procedure on shoulder History of onel hole surgery History of carpal tunnel surgery History of cholecystectomy History of hysterectomy S/P cervical spinal fusion Family History Mother Hypertension Social History Smoking Status: Never smoker Tobacco Type: Cigarettes Second Hand Exposure: No; Do You Dip or Chew Tobacco: No; Hx Alcohol Use: Yes Alcohol type: beer Alcohol Intake Frequency Comment: 5 beers/day Hx Substance Use: No Preferred Language: Macedonian Communication Ability: Effective Enrollment Coordinator Required: No Beliefs That Will Affect Care: None marital status: Single Current Living Situation: Spouse current occupational status: unemployed How many Children do You have: 0 Feels Safe at Home: Yes Assistive Devices: None Review of Systems Review of Systems: All systems reviewed & are unremarkable except as noted in HPI & below Physical Exam Physical Exam: General: A&Ox3. NAD. Cooperative. HEENT: Atraumatic, normocephalic. Pulm: CTAB A&P. -wheezes, -rales, -rhonchi. Symmetrical chest rise. No increased work of breathing. No respiratory distress. Cardiac: RRR, -mrg. Radial pulses intact and symmetrical. Abdominal: Nontender, nondistended, soft. BS present. Ext: Warm. dry. no edema. Sensation grossly intact in arms and legs to soft touch, qualitatively 'off' compared to normal. Strenght 5/5 in upper and lower extremities. Results & Data Results & Data Vital Signs (Past 12 Hours) Vital Signs Temp Pulse Resp BP Pulse Ox O2 Del Method 04/20/23 17:04 70 04/20/23 15:59 36.3 C L 63 16 174/94 H 99 Room Air PG Care Time/CCT Total # of Minutes Spent Total Time Spent with Patient: Total time spent is greater than 50% in coordination of care (as documented) at patient's floor/unit and/or counseling patient: Coding Level of Care Code 40867 INT INP/OBS CARE Diagnoses TIA (transient ischemic attack) G45.9 Seizure disorder G40.909 COPD (chronic obstructive pulmonary disease) J44.9 Alcoholism F10.20 Chronic pancreatitis K86.1 Severe pulmonary arterial systolic hypertension I27.21 Nonischemic cardiomyopathy I42.8 Liver cirrhosis K74.60 Pancytopenia D61.818 Thrombocytopenia D69.6
[2023-04-20] MEDS ORDERED: MELATONIN 3 MG TAB PO PRN (18:11)
[2023-04-20] MEDS ORDERED: LORazepam 2 MG/1 ML VIAL IV PRN (18:27)
[2023-04-20] MEDS ORDERED: STAT IV STA (20:08)
[2023-04-20] MEDS ORDERED: TRIAMCINOLONE ACET 40 MG/ML VIAL IA SCH (20:08)
[2023-04-20] MEDS ORDERED: SODIUM CHLORIDE 3 % 50 ML IV ONE (20:08)
[2023-04-20] MEDS ORDERED: PNEUMOCOCCAL POLYSACCHARIDES 25 MCG/0.5 ML VIAL/SYR IM ONE (20:34)
[2023-04-20] MEDS: busPIRone 15 MG TAB PO SCH (20:59)
[2023-04-20 21:16] LABS: BUN Creatinine Ratio 17.9 (10-20); Calcium 8.8 mg/dl (8.6-10.3); Creatinine Clr Calc Pharmacy 68.2 ml/min; Est GFR (African American) 93.1 ml/min; Est GFR (Non-African American) 80.3 ml/min; Potassium 4.3 mmol/L (3.5-5.1)
[2023-04-20 21:37] LABS: INR 1.1 (0.9-1.1); Partial Thromboplastin Ratio 0.9; Partial Thromboplastin Time 26.6 Seconds (21.0-31.0)
[2023-04-20 22:02] LABS: Lyme Ab IgG w/WB Rflx Negative (Negative); Lyme Ab IgM w/WB Rflx Negative (Negative)
[2023-04-21 01:19] LABS: BUN Creatinine Ratio 16.4 (10-20); Calcium 9.2 mg/dl (8.6-10.3); Creatinine Clr Calc Pharmacy 72.9 ml/min; Est GFR (African American) 100.9 ml/min; Potassium 4.1 mmol/L (3.5-5.1)
[2023-04-21 05:09] LABS: BUN Creatinine Ratio 15.1 (10-20); Calcium 9.3 mg/dl (8.6-10.3); Creatinine Clr Calc Pharmacy 72.9 ml/min; Est GFR (African American) 100.9 ml/min; Potassium 4.1 mmol/L (3.5-5.1)
[2023-04-21 05:34] LABS: Basophils # (auto) 0.02 K/uL (0.00-0.20); Basophils % (auto) 0.8 %; Eosinophils # (auto) 0.07 K/uL (0.00-0.50); Eosinophils % (auto) 2.8 %; Hematocrit (blood only) 39.4 % (37.0-47.0); Hemoglobin 14.1 g/dl (12.0-16.0); Immature Granulocytes # (auto) 0.01 K/uL (0.01-0.20); Immature Granulocytes % (auto) 0.4 %; Lymphocytes % (auto) 35.4 %; Mean Corpuscular Hemoglobin 34.6 pg (25.0-34.0); Mean Corpuscular Hgb Conc 35.8 g/dL (32.0-36.0); Mean Corpuscular Volume 96.8 fL (80.0-100.0); Monocytes % (auto) 11.8 %; Neutrophils # (auto) 1.24 K/uL (1.40-6.50); Neutrophils % (auto) 48.8 %; Platelet Count 102 K/uL (130-400); RDW Coefficient of Variation 11.9 % (11.5-14.5); RDW Standard Deviation 42.3 fL (36.4-46.3); Red Blood Count 4.07 M/uL (4.20-5.40); White Blood Count 2.54 K/ul (4.8-10.8)
[2023-04-21] MEDS: busPIRone 15 MG TAB PO SCH ×2 (08:26→20:35)
[2023-04-21] MEDS: METOPROLOL SUCC 25MG EXT REL TAB PO SCH (08:27)
[2023-04-21] MEDS: CALCIUM 600MG + VIT D 400 IU TAB PO SCH (08:27)
[2023-04-21] MEDS: MELOXICAM 7.5 MG TAB PO SCH (08:27)
[2023-04-21] MEDS: PANTOprazole 40 MG TAB PO SCH (08:28)
[2023-04-21] MEDS: MULTIVITAMIN TAB PO SCH (08:28)
[2023-04-21] MEDS ORDERED: DEXTROSE 5% 500 ML IV SCH (08:30)
[2023-04-21] MEDS: TRINTELLIX: ORDER AWAITING ACTION SCH ×2 (08:30→16:50)
[2023-04-21] MEDS: ENOXAPARIN INJ 40 MG/0.4 ML SYR SQ SCH (08:31)
--- NOTE | 2023-04-21 10:09 | Neurology Consultation ---
Date of Consultation April 21, 2023 Assessment & Plan (1) Episodes of staring: (2) Episodes of speech arrest: Plan 63-year-old female presenting with a staring episode and associated speech and movement arrest that occurred while standing, without associated collapse or loss of awareness. The episode is of uncertain etiology. Differential diagnosis could include TIA, cerebral hypoperfusion, or partial aware seizure. She does have a remote history of traumatic brain injury/right convexity subdural hematoma requiring craniotomy in 2010 with subsequent development of seizure disorder, further confounded by alcohol use disorder, reportedly in remission. She had been seizure-free for several years without any antiseizure medication and had previously discontinued her Keppra. She is currently neurologically intact and asymptomatic. Would recommend MRI of the brain with and without contrast, seizure protocol. Would also recommend inpatient EEG. Consider 30-day mobile cardiac outpatient telemetry. Going forward, if patient has recurrent similar episodes, would consider restarting antiseizure medication. History of Present Illness Reason for Consultation: TIA vs seizure Requesting Physician: Izzy Attending Physician: Christopher Javier MD History of Present Illness The patient is a 63-year-old female who is known to me, I evaluated her for consultation in neurology clinic on August 06, 2022 regarding a history of traumatic brain injury complicated by subdural hematoma, requiring right-sided craniotomy in 2010, she subsequently developed posttraumatic seizures and was treated with Keppra for several years, further complicated by alcohol use disorder and suspected alcohol withdrawal seizures. She had previously followed with the local [facility] neurology group and had reported alcohol abstinence for several years recently and had discontinued her Keppra. She had an unremarkable 72-hour ambulatory EEG in June 2021. Given her clinical stability without antiseizure medications and normal EEG I did not recommend restarting antiseizure medication at that time. Continued alcohol abstinence was stressed. She presented to the emergency department yesterday for further assessment of speech and movement arrest that occurred while standing at a republican, there was no collapse, shaking, or loss of awareness of the event. The patient does not recall any other symptoms such as dizziness, vertigo, diplopia, dysarthria, or focal weakness. This episode was different from her previous seizures. A CT of the head was negative for hemorrhage or acute process, there was evidence of a right-sided craniotomy, unchanged. There was no significant vascular lesion identified. There was a 40% focal stenosis within the right proximal internal carotid artery due to calcified plaque. I did independently review these im ages. Allergies Allergy/AdvReac Type Severity Reaction Status Date / Time gabapentin AdvReac Severe Confusion Verified 03/17/23 14:46 acetaminophen [From Tylenol] AdvReac Unknown CONTRAINDICATED Verified 03/17/23 14:46 DUE TO LIVER ISSUES ibuprofen AdvReac Unknown CONTRAINDICATED Verified 03/17/23 14:46 DUE TO LIVER ISSUES Home Medications Medication Instructions Recorded Confirmed Type metoprolol succinate 25 mg 25 mg PO DAILY 11/21/21 04/20/23 History tablet,extended release 24 hr rizatriptan 10 mg disintegrating 10 mg PO DIRECTED PRN Migraine 11/21/21 04/20/23 History tablet Headache meloxicam 15 mg tablet 15 mg PO DAILY #30 tabs 03/16/22 04/20/23 Rx vortioxetine 10 mg tablet 10 mg PO DAILY 06/03/22 04/20/23 History (Trintellix) calcium carbonate 600 mg-vitamin 1 cap PO DAILY 08/02/22 04/20/23 History D3 12.5 mcg (500 unit) capsule (Calcium 600 with Vitamin D3) alendronate 35 mg tablet 35 mg PO WK 04/20/23 04/20/23 History brexpiprazole 0.5 mg tablet 0.5 mg PO HS 04/20/23 04/20/23 History (Rexulti) buspirone 30 mg tablet 30 mg PO BID 04/20/23 04/20/23 History diazepam 5 mg tablet 5 mg PO DAILY PRN Anxiety 04/20/23 04/20/23 History multivitamin-ferrous 1 tab PO DAILY 04/20/23 04/20/23 History fumarate-folic acid 18 mg-400 mcg tablet (Centrum Women) omeprazole 40 mg capsule,delayed 40 mg PO DAILY 04/20/23 04/20/23 History release trazodone 150 mg tablet 150 mg PO HS PRN Sleep 04/20/23 04/20/23 History Patient History Medical History Alcohol intoxication Alcoholism Chronic hyponatremia Chronic pancreatitis COPD (chronic obstructive pulmonary disease) Displacement 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 (08/22/11) History of craniotomy Due to subdural hematoma from fall History of tobacco abuse Nonischemic cardiomyopathy Positive ROSANGELA (antinuclear antibody) Seizure disorder (05/16/12) Severe pulmonary arterial systolic hypertension Thrombocytopenia Uterine leiomyoma (07/18/11) Surgical History History of arthroscopic procedure on shoulder History of onel hole surgery History of carpal tunnel surgery History of cholecystectomy History of hysterectomy S/P cervical spinal fusion Family History Mother Hypertension Social History Smoking Status: Former smoker Tobacco Type: Cigarettes Second Hand Exposure: No; Do You Dip or Chew Tobacco: No; Hx Alcohol Use: No Hx Substance Use: No Preferred Language: Djiboutian Communication Ability: Effective Engine Emission Technician Required: No Beliefs That Will Affect Care: None marital status: Single Current Living Situation: Spouse current occupational status: unemployed How many Children do You have: 0 Feels Safe at Home: Yes Safety Concerns: Feels Safe At This Time Assistive Devices: Glasses Review of Systems Constitutional: no fever and no chills Eyes: no blind spots and no diplopia Ear, Nose, Mouth, Throat: no hearing loss Respiratory: no cough and no dyspnea Cardiovascular: no chest pain and no palpitations Gastrointestinal: no nausea and no vomiting Genitourinary: no urinary incontinence Musculoskeletal: no neck pain and no myalgia Integumentary: no rash and no lesions Neurologic: as per Subjective / HPI Psychiatric: no depression and no anxiety Hematologic / Lymphatic: no easy bleeding and no easy bruising Exam (Neuro) Constitutional: well developed and + acute distress Eyes: normal visual gimenez by confrontation, PERRL and EOM intact bilaterally Cardiovascular: Vessels: no carotid bruit Neurologic: Oriented to:: Person, Place and Time Memory: Short Term Intact and Remote Intact Attention: Span Intact and Concentration Intact Speech Fluency: negative Dysarthria or Dysfluency Fund of Knowledge: Current Events, Past History and Vocabulary Cranial Nerves: Normal II, III, IV, , V, VII, VIII, IX, X, XI and XII Motor Strength: Normal Lower Extremities and Normal Upper Extremities Motor Tone: Normal Lower Extremities and Normal Upper Extremities Muscle Bulk/Involuntary Movements: No Involuntary Movements; negative Muscle Atrophy Sensation: Light Touch Intact, Pain/Temperature Intact and Proprioception Intact Coordination: Normal; negative Dysdiadochokinesia, Finger-Nose Abnormal or Heel-Rouse Abnormal Deep Tendon Reflexes: Rt Triceps: 2+, Lt Triceps: 2+, Rt Biceps: 2+, Lt Biceps: 2+, Rt Brachioradialis: 2+, Lt Brachioradialis: 2+, Rt Patellar: 2+, Lt Patellar: 2+, Rt Ankle: 2+ and Lt Ankle: 2+ Special Tests: negative Babinski Present Details: Gait not tested Results & Data Vital Signs (Past 12 Hours) Vital Signs Temp Pulse Pulse Resp BP Pulse Ox O2 Del Method 04/21/23 07:04 73 04/21/23 07:56 36.5 C 67 17 147/83 H 97 Room Air 04/21/23 02:53 36.7 C 68 18 142/85 H 97 Room Air 04/20/23 23:23 55 L 04/20/23 22:42 36.5 C 56 L 20 161/84 H 99 Room Air Laboratory Results WBC 2.54, hemoglobin 14.1, hematocrit 39.4, MCV 96.8, platelet count 102, sodium 132, potassium 4.1, BUN 11, creatinine 0.73, glucose 92, osmolality 270, magnesium 1.9, AST 75, ALT 85, ammonia 39.0, urine osmolality 280, ethyl alcohol level less than 10.0, L[place] screening negative Diagnostic Findings CT of the head including CTA of the head and neck are as described in the HPI. An electrocardiogram revealed a normal sinus rhythm Coding Level of Care Code 56394 INT INP/OBS CARE 2/55MIN Diagnoses Episodes of staring R40.4 Episodes of speech arrest R47.89
[2023-04-21] MEDS: diazePAM 5 MG TABLET PO PRN (10:43)
[2023-04-21] MEDS ORDERED: ACETAMINOPHEN 500 MG TAB PO STA (11:21)
--- NOTE | 2023-04-21 16:41 | Hospitalist Progress Note ---
Date of Service April 21, 2023 Assessment & Plan (1) TIA (transient ischemic attack): Plan: Episode of staring and speech arrest ~1 minute of overall weakness, aphasia without LoC or shaking with some residual weakness x30 minutes. No loss of consciousness MRI ordered EEG ordered per neurology recommendation Seizure precaution Consider 30-day event monitor Patient is with hyponatremia Subacute hyponatremia Creatinine 0.82 likely euvolemic BSG 81, no pseudohyponatremia Suspect SIADH in the setting of starting new antipsychotic with progressive brain fog and weakness since that time patient was given a small bolus of 3% normal saline and corrected rapidly. She was thus given 500 cc of D5 stat BMP ordered Anxiety/Depression - Recently started of Bexiprazole with subsequent progressive foggyness. Suspect induced hyponatremia. Will hold both this and trazodone. - melatonin qHS for sleep - Continue Positive ROSANGELA Follows with rheumatology as an outpatient. Has had chronic joint pain worse in shoulder, not improved on hydro xychloroquine. Aggressive steroid/immunosuppressants were not recommended. Discontinued hydroxychloroquin No acute change in management at this time Seizure disorder, history of craniotomy Follows with [facility] History of TBI and subdural hematoma with craniotomy 2010. Subsequently with seizure disorder on Keppra and stable. Does have history of nonepileptic seizures as well, possibly triggered by alcohol abuse. No residual neurologic deficits from her TBI. She did not have seizures for over 3 years without Keppra or anticonvulsant therapy and this was therefore not continued We will keep on seizure precautions given risk and hyponatremia history of alcohol abuse Previously within minutes for alcohol intoxication. Has followed up with [facility] and had naltrexone restarted 2021 Liver cirrhosis History of hepatitis C Follows with GI No evidence of congestion/volume overload at this etiology of hyponatremia. Will follow urine studies as above COPD No inhalers at home No wheezing No acute management at this time DVT PPx: SCDs, lovenox CODE: Full Diet: Fluid Restricted (2) Seizure disorder: (3) COPD (chronic obstructive pulmonary disease): (4) Alcoholism: (5) Chronic pancreatitis: (6) Severe pulmonary arterial systolic hypertension: (7) Nonischemic cardiomyopathy: (8) Liver cirrhosis: (9) Pancytopenia: (10) Thrombocytopenia: Admission and Anticipated Discharge Date Admission Date: April 20, 2023 Subjective Patient feels well currently. Denies chest pain or shortness of breath. Review of Systems Review of Systems: All systems reviewed & are unremarkable except as noted in Subjective Physical Exam Physical Exam: general: Awake, conversant Heart: S1, S2/regular rate and rhythm, no murmur rubs or gallops Lungs: Clear to auscultation bilaterally. Normal effort Abdomen: Soft/nontender/nondistended. No hepatosplenomegaly Extremities: No clubbing/cyanosis. No edema Behavior: Appropriate, cooperative Results & Data Results & Data Vital Signs (Past 12 Hours) Vital Signs Temp Pulse Pulse Resp BP Pulse Ox O2 Del Method 04/21/23 15:13 36.5 C 76 18 130/77 98 Room Air 04/21/23 11:42 36.4 C L 62 18 132/74 98 Room Air 04/21/23 07:04 73 04/21/23 07:56 36.5 C 67 17 147/83 H 97 Room Air Laboratory Results Abnormal lab results 04/20/23 04/20/23 04/20/23 Range/Units 16:30 16:30 16:33 WBC 2.96 L (4.8-10.8) K/ul RBC 3.81 L (4.20-5.40) M/uL MCH 34.4 H (25.0-34.0) pg Plt Count 119 L (130-400) K/uL MPV 8.5 L (9.4-12.4) fL Neut # (Auto) (1.40-6.50) K/uL Lymph # (Auto) (1.20-3.40) K/uL POC Sodium 123 L (135-144) mmol/L Sodium 123 L (136-145) mmol/L POC Chloride 91 L (101-112) mmol/L Chloride 90 L (98-107) mmol/L POC Anion Gap 13.0 L (16-25) mmol/L POC BUN 21 H (7-18) mg/dl BUN/Creatinine Ratio 20.7 H (10-20) Osmolality (280-300) mOsm/kg POC Ioniz Calcium Kar 1.06 L (1.12-1.32) mmol/l AST (13-39) U/L ALT 85 H (7-52) U/L Globulin 2.2 L (2.5-4.0) gm/dl Urine Osmolality (500-800) mOsm/kg 04/20/23 04/20/23 04/20/23 Range/Units 17:21 17:55 20:28 WBC (4.8-10.8) K/ul RBC (4.20-5.40) M/uL MCH (25.0-34.0) pg Plt Count (130-400) K/uL MPV (9.4-12.4) fL Neut # (Auto) (1.40-6.50) K/uL Lymph # (Auto) (1.20-3.40) K/uL POC Sodium (135-144) mmol/L Sodium 126 L (136-145) mmol/L POC Chloride (101-112) mmol/L Chloride 95 L (98-107) mmol/L POC Anion Gap (16-25) mmol/L POC BUN (7-18) mg/dl BUN/Creatinine Ratio (10-20) Osmolality (280-300) mOsm/kg POC Ioniz Calcium Kar (1.12-1.32) mmol/l AST 75 H (13-39) U/L ALT (7-52) U/L Globulin (2.5-4.0) gm/dl Urine Osmolality 280 L (500-800) mOsm/kg 04/20/23 04/21/23 04/21/23 Range/Units 20:28 00:46 04:30 WBC 2.54 L (4.8-10.8) K/ul RBC 4.07 L (4.20-5.40) M/uL MCH 34.6 H (25.0-34.0) pg Plt Count 102 L (130-400) K/uL MPV 8.0 L (9.4-12.4) fL Neut # (Auto) 1.24 L (1.40-6.50) K/uL Lymph # (Auto) 0.90 L (1.20-3.40) K/uL POC Sodium (135-144) mmol/L Sodium 131 L (136-145) mmol/L POC Chloride (101-112) mmol/L Chloride (98-107) mmol/L POC Anion Gap (16-25) mmol/L POC BUN (7-18) mg/dl BUN/Creatinine Ratio (10-20) Osmolality 270 L (280-300) mOsm/kg POC Ioniz Calcium Kar (1.12-1.32) mmol/l AST (13-39) U/L ALT (7-52) U/L Globulin (2.5-4.0) gm/dl Urine Osmolality (500-800) mOsm/kg 04/21/23 Range/Units 04:30 WBC (4.8-10.8) K/ul RBC (4.20-5.40) M/uL MCH (25.0-34.0) pg Plt Count (130-400) K/uL MPV (9.4-12.4) fL Neut # (Auto) (1.40-6.50) K/uL Lymph # (Auto) (1.20-3.40) K/uL POC Sodium (135-144) mmol/L Sodium 132 L (136-145) mmol/L POC Chloride (101-112) mmol/L Chloride (98-107) mmol/L POC Anion Gap (16-25) mmol/L POC BUN (7-18) mg/dl BUN/Creatinine Ratio (10-20) Osmolality (280-300) mOsm/kg POC Ioniz Calcium Kar (1.12-1.32) mmol/l AST (13-39) U/L ALT (7-52) U/L Globulin (2.5-4.0) gm/dl Urine Osmolality (500-800) mOsm/kg Diagnostic Findings Chest X-Ray 04/20/23 16:05 XR chest 1V portable HISTORY: Stroke symptoms. COMPARISON: Chest 03/11/2022. FINDINGS: No pneumothorax. No pleural effusions. The lungs are clear. The heart is normal in size. Cervical spinal fusion hardware is again noted. No acute fractures. No evidence for pulmonary edema. IMPRESSION: No significant change compared to the prior study. No acute process. ACT 112: Negative or not required by law. Electronically signed by: Charan Miles M.D. 04/20/2023 5:[address] 04/20/23 16:[address] DOSE: HISTORY: Neuro deficit, acute, stroke suspected TECHNIQUE: Multiaxial CT images of the head were performed without the use of intravenous contrast. Automated exposure control was utilized for this study. A dose lowering technique was utilized adhering to the principles of ALARA. Comparison: Head CT 01/30/2022. Findings: The paranasal sinuses and mastoid air cells are clear. The calvarium and skull base are intact. There is no mass, hematoma, midline shift, acute infarct. White matter hypodensity is nonspecific but suggestive of microvascular ischemic change. The ventricles and sulci demonstrate mild age-related involutional changes. Right-sided craniotomy changes again noted. Impression: No significant change compared to the prior study. No acute intracranial abnormality. ACT 112: Negative or not required by law. Electronically signed by: Charan Miles M.D. 04/20/2023 4:59 PM Head CTA 04/20/23 16:18 HEAD & NECK CTA HISTORY: Weakness. Dizziness. tia symptoms TECHNIQUE: Multiaxial CT images of the head were performed following the intravenous administration of contrast to evaluate the major cerebral vessels. Multiaxial CT images of the neck were also performed following the intravenous administration of contrast to evaluate the major cervical vessels. 3D/MIP images were also obtained. Sagittal and coronal reformats were reviewed. A dose lowering technique was utilized adhering to the principles of ALARA. COMPARISON: Head CT 04/20/2023. FINDINGS: There is no mass, hematoma, midline shift, or acute infarct. Visualized intracranial internal carotid arteries, distal vertebral arteries, and basilar artery are widely patent. There is no significant stenosis, occlusion, or aneurysm seen within the bilateral ACAs, MCAs, or correspondence section supervisor. The distal left vertebral artery terminates into the left posterior inferior cerebellar artery. This is considered to be a normal variant. The basilar artery is fed through the right vertebral artery. The distal basilar artery is hypoplastic due to the bilateral posterior circulations. These are also considered to be normal variants. Calcified plaque within the bilateral carotid siphons. The major dural venous sinuses are patent. Right-sided craniotomy changes again noted. The aortic arch and proximal great vessels are widely patent. There is no significant stenosis, occlusion, or dissection identified within the bilateral common carotid, left internal carotid, or vertebral arteries. Cervical spinal fusion hardware is noted. Hypoplastic left vertebral artery. Mild calcified plaque within the left carotid bifurcation. There is moderate calcified plaque within the right carotid bifurcation resulting in focal stenosis of the proximal right internal carotid artery of approximately 40%. The right common carotid artery is widely patent. IMPRESSION: 1. No significant stenosis, occlusion, or aneurysm within the [place]. 2. No significant stenosis, occlusion, or dissection identified within the left carotid or bilateral vertebral arteries. 3. Approximately 40% focal stenosis within the proximal right internal carotid artery due to the calcified plaque. ACT 112: Negative or not required by law. Electronically signed by: Charan Miles M.D. 04/20/2023 5:05 PM Neck CTA 04/20/23 16:18 HEAD & NECK CTA HISTORY: Weakness. Dizziness. tia symptoms TECHNIQUE: Multiaxial CT images of the head were performed following the intravenous administration of contrast to evaluate the major cerebral vessels. Multiaxial CT images of the neck were also performed following the intravenous administration of contrast to evaluate the major cervical vessels. 3D/MIP images were also obtained. Sagittal and coronal reformats were reviewed. A dose lowering technique was utilized adhering to the principles of ALARA. COMPARISON: Head CT 04/20/2023. FINDINGS: There is no mass, hematoma, midline shift, or acute infarct. Visualized intracranial internal carotid arteries, distal vertebral arteries, and basilar artery are widely patent. There is no significant stenosis, occlusion, or aneurysm seen within the bilateral ACAs, MCAs, or correspondence section supervisor. The distal left vertebral artery terminates into the left posterior inferior cerebellar artery. This is considered to be a normal variant. The basilar artery is fed through the right vertebral artery. The distal basilar artery is hypoplastic due to the bilateral posterior circulations. These are also considered to be normal variants. Calcified plaque within the bilateral carotid siphons. The major dural venous sinuses are patent. Right-sided craniotomy changes again noted. The aortic arch and proximal great vessels are widely patent. There is no significant stenosis, occlusion, or dissection identified within the bilateral common carotid, left internal carotid, or vertebral arteries. Cervical spinal fusion hardware is noted. Hypoplastic left vertebral artery. Mild calcified plaque within the left carotid bifurcation. There is moderate calcified plaque within the right carotid bifurcation resulting in focal stenosis of the proximal right internal carotid artery of approximately 40%. The right common carotid artery is widely patent. IMPRESSION: 1. No significant stenosis, occlusion, or aneurysm within the [place]. 2. No significant stenosis, occlusion, or dissection identified within the left carotid or bilateral vertebral arteries. 3. Approximately 40% focal stenosis within the proximal right internal carotid artery due to the calcified plaque. ACT 112: Negative or not required by law. Electronically signed by: Charan Miles M.D. 04/20/2023 5:05 PM [facility] Care Time/CCT Total # of Minutes Spent Total Time Spent with Patient: Total time spent is greater than 50% in coordination of care (as documented) at patient's floor/unit and/or counseling patient: Coding Level of Care Code 21959 SUB INP/OBS CARE 2/35MIN Diagnoses TIA (transient ischemic attack) G45.9 Seizure disorder G40.909 COPD (chronic obstructive pulmonary disease) J44.9 Alcoholism F10.20 Chronic pancreatitis K86.1 Severe pulmonary arterial systolic hypertension I27.21 Nonischemic cardiomyopathy I42.8 Liver cirrhosis K74.60 Pancytopenia D61.818 Thrombocytopenia D69.6
[2023-04-21 18:35] LABS: BUN Creatinine Ratio 27.4 (10-20); Creatinine Clr Calc Pharmacy 72.9 ml/min; Est GFR (African American) 100.9 ml/min; Potassium 4.5 mmol/L (3.5-5.1)
--- NOTE | 2023-04-21 23:06 | Electrocardiogram Report ---
Test Reason : Blood Pressure : / mmHG Vent. Rate : 066 BPM Atrial Rate : 066 BPM P-R Int : 182 ms QRS Dur : 076 ms QT Int : 432 ms P-R-T Axes : 024 -10 010 degrees QTc Int : 452 ms Normal sinus rhythm Septal infarct , age undetermined Abnormal ECG When compared with ECG of 13-MAR-2022 06:06, QT has shortened Confirmed by Jorge Alberto Packer ([id number]) on 04/21/2023 11:06:36 PM Referred By: Confirmed By:Jorge Alberto Packer
--- NOTE | 2023-04-22 00:48 | Magnetic Resonance Report ---
Exam(s): MRI HEAD Without Contrast EXAM: MR Head Without Intravenous Contrast CLINICAL HISTORY: Reason for exam: TIA/CVA eval. TECHNIQUE: Magnetic resonance images of the head/brain without intravenous contrast in multiple planes. COMPARISON: No relevant prior studies available. FINDINGS: Brain: Subtle T2/flair signal hyperintensity scattered throughout the subcortical and deep white matter consistent with very mild ischemic microangiopathy. Mild age-appropriate cerebral volume loss. No hemorrhage. Ventricles: Unremarkable. No ventriculomegaly. Bones/joints: Postoperative changes right frontotemporal craniotomy. Sinuses: Unremarkable as visualized. No acute sinusitis. Mastoid air cells: Unremarkable as visualized. No mastoid effusion. Orbits: Unremarkable as visualized. Other vasculature: Appropriate vascular flow voids present. IMPRESSION: Mild ischemic microangiopathy, with age appropriate cerebral volume loss. Head CT negative for acute intracranial abnormality. Electronically signed by: Samson Matias MD 04/22/23 00:47 AM
[2023-04-22] MEDS: TRINTELLIX: ORDER AWAITING ACTION SCH ×4 (03:43→23:37)
[2023-04-22] MEDS: diazePAM 5 MG TABLET PO PRN (07:40)
[2023-04-22 07:49] LABS: Basophils # (auto) 0.02 K/uL (0.00-0.20); Basophils % (auto) 0.7 %; Eosinophils # (auto) 0.08 K/uL (0.00-0.50); Eosinophils % (auto) 2.7 %; Hematocrit (blood only) 39.6 % (37.0-47.0); Hemoglobin 14.3 g/dl (12.0-16.0); Immature Granulocytes # (auto) 0.01 K/uL (0.01-0.20); Immature Granulocytes % (auto) 0.3 %; Lymphocytes # (auto) 0.95 K/uL (1.20-3.40); Lymphocytes % (auto) 32.3 %; Mean Corpuscular Hemoglobin 34.2 pg (25.0-34.0); Mean Corpuscular Hgb Conc 36.1 g/dL (32.0-36.0); Mean Corpuscular Volume 94.7 fL (80.0-100.0); Monocytes # (auto) 0.41 K/uL (0.11-0.59); Monocytes % (auto) 13.9 %; Neutrophils # (auto) 1.47 K/uL (1.40-6.50); Neutrophils % (auto) 50.1 %; Platelet Count 102 K/uL (130-400); RDW Coefficient of Variation 11.6 % (11.5-14.5); RDW Standard Deviation 40.2 fL (36.4-46.3); Red Blood Count 4.18 M/uL (4.20-5.40); White Blood Count 2.94 K/ul (4.8-10.8)
[2023-04-22] MEDS ORDERED: ACETAMINOPHEN 500 MG TAB PO ONE (07:52)
[2023-04-22 08:09] LABS: BUN Creatinine Ratio 18.3 (10-20); Calcium 9.2 mg/dl (8.6-10.3); Creatinine Clr Calc Pharmacy 74.9 ml/min; Est GFR (African American) 104.3 ml/min; Potassium 4.2 mmol/L (3.5-5.1)
[2023-04-22] MEDS: MELOXICAM 7.5 MG TAB PO SCH (08:28)
[2023-04-22] MEDS: busPIRone 15 MG TAB PO SCH ×2 (08:28→21:07)
[2023-04-22] MEDS: METOPROLOL SUCC 25MG EXT REL TAB PO SCH (08:28)
[2023-04-22] MEDS: CALCIUM 600MG + VIT D 400 IU TAB PO SCH (08:28)
[2023-04-22] MEDS: MULTIVITAMIN TAB PO SCH (08:29)
[2023-04-22] MEDS: PANTOprazole 40 MG TAB PO SCH (08:29)
[2023-04-22] MEDS: ENOXAPARIN INJ 40 MG/0.4 ML SYR SQ SCH (08:53)
--- NOTE | 2023-04-22 10:03 | Electroencephalogram ---
EEG Procedure Note Date of Service April 22, 2023 Start / End Times Start Time: 6:39 AM End Time: 6:59 AM Referring Physician Yaya History Possible seizure Home Medication List Medication Instructions Recorded Confirmed Type metoprolol succinate 25 mg 25 mg PO DAILY 11/21/21 04/20/23 History tablet,extended release 24 hr rizatriptan 10 mg disintegrating 10 mg PO DIRECTED PRN Migraine 11/21/21 04/20/23 History tablet Headache meloxicam 15 mg tablet 15 mg PO DAILY #30 tabs 03/16/22 04/20/23 Rx vortioxetine 10 mg tablet 10 mg PO DAILY 06/03/22 04/20/23 History (Trintellix) calcium carbonate 600 mg-vitamin 1 cap PO DAILY 08/02/22 04/20/23 History D3 12.5 mcg (500 unit) capsule (Calcium 600 with Vitamin D3) alendronate 35 mg tablet 35 mg PO WK 04/20/23 04/20/23 History brexpiprazole 0.5 mg tablet 0.5 mg PO HS 04/20/23 04/20/23 History (Rexulti) buspirone 30 mg tablet 30 mg PO BID 04/20/23 04/20/23 History diazepam 5 mg tablet 5 mg PO DAILY PRN Anxiety 04/20/23 04/20/23 History multivitamin-ferrous 1 tab PO DAILY 04/20/23 04/20/23 History fumarate-folic acid 18 mg-400 mcg tablet (Centrum Women) omeprazole 40 mg capsule,delayed 40 mg PO DAILY 04/20/23 04/20/23 History release trazodone 150 mg tablet 150 mg PO HS PRN Sleep 04/20/23 04/20/23 History Inpatient Medication List Buspirone HCl (Buspirone 15 Mg Tab) 30 mg PO BID LAURA Stop: 05/20/23 20:59 Last Admin: 04/22/23 08:28 Dose: 30 mg Documented By: Admin: 04/21/23 20:35 Dose: 30 mg Documented By: Admin: 04/21/23 08:26 Dose: 30 mg Documented By: Admin: 04/20/23 20:59 Dose: 30 mg Documented By: EDWIGE Calcium/Vitamin D (Calcium 600mg + Vit D 400 Iu Tab) 1 tab PO DAILY LAURA Stop: 05/21/23 08:59 Last Admin: 04/22/23 08:28 Dose: 1 tab Documented By: Admin: 04/21/23 08:27 Dose: 1 tab Documented By: GINA Diazepam (Diazepam 5 Mg Tablet) 5 mg PO DAILY PRN PRN Reason: Anxiety Stop: 05/20/23 20:07 Last Admin: 04/22/23 07:40 Dose: 5 mg Documented By: Admin: 04/21/23 10:43 Dose: 5 mg Documented By: GINA Enoxaparin Sodium (Enoxaparin Inj 40 Mg/0.4 Ml Syr) 40 mg SQ Q24H LAURA Stop: 05/21/23 08:59 Last Admin: 04/22/23 08:53 Dose: Not Given Documented By: Admin: 04/21/23 08:31 Dose: Not Given Documented By: GINA Meloxicam (Meloxicam 7.5 Mg Tab) 15 mg PO DAILY LAURA Stop: 05/21/23 08:59 Last Admin: 04/22/23 08:28 Dose: 15 mg Documented By: Admin: 04/21/23 08:27 Dose: 15 mg Documented By: GINA Metoprolol Succinate (Metoprolol Succ 25mg Ext Rel Tab) 25 mg PO DAILY [facility]URA Stop: 05/21/23 08:59 Last Admin: 04/22/23 08:28 Dose: 25 mg Documented By: Admin: 04/21/23 08:27 Dose: 25 mg Documented By: GINA Miscellaneous (Trintellix: Order Awaiting Action) 1 each N/A QS LAURA Stop: 05/21/23 07:59 Last Admin: 04/22/23 08:53 Dose: Not Given Documented By: Admin: 04/22/23 03:43 Dose: Not Given Documented By: Admin: 04/21/23 16:50 Dose: Not Given Documented By: Admin: 04/21/23 08:30 Dose: Not Given Documented By: GINA Multivitamins (Multivitamin Tab) 1 tab PO DAILY LAURA Stop: 05/21/23 08:59 Last Admin: 04/22/23 08:29 Dose: 1 tab Documented By: Admin: 04/21/23 08:28 Dose: 1 tab Documented By: GINA Pantoprazole Sodium (Pantoprazole 40 Mg Tab) 40 mg PO DAILY LAURA Stop: 05/21/23 08:59 Last Admin: 04/22/23 08:29 Dose: 40 mg Documented By: Admin: 04/21/23 08:28 Dose: 40 mg Documented By: GINA Discontinued Medications Acetaminophen (Acetaminophen 500 Mg Tab) 500 mg PO NOW STA Stop: 04/21/23 11:22 Last Admin: 04/21/23 11:39 Dose: 500 mg Documented By: GINA Acetaminophen (Acetaminophen 500 Mg Tab) 500 mg PO ONCE ONE Stop: 04/22/23 07:53 Last Admin: 04/22/23 08:27 Dose: 500 mg Documented By: GINA Sodium Chloride (Nss 1000ml) 1,000 mls @ 125 mls/hr IV .Q8H [facility] Stop: 05/20/23 17:59 Last Infusion: 04/20/23 20:17 Dose: 0 mls/hr Documented By: Admin: 04/20/23 18:47 Dose: 125 mls/hr Documented By: ALIDA Sodium Chloride (Hypertonic Saline 3%) 50 mls @ 300 mls/hr IV .Q10M ONE; Protocol Stop: 04/20/23 20:17 Last Infusion: 04/20/23 20:45 Dose: 0 mls/hr Documented By: EDWIGE Co-signed By: ANURAG Admin: 04/20/23 20:25 Dose: 300 mls/hr Documented By: EDWIGE Co-signed By: JASVIR Dextrose (D5w) 500 mls @ 125 mls/hr IV .Q4H [facility] Stop: 04/21/23 12:29 Last Infusion: 04/21/23 12:29 Dose: 0 mls/hr Documented By: Admin: 04/21/23 08:29 Dose: 125 mls/hr Documented By: GINA Ioversol (Ioversol 350 Mg 125ml Prefilled Syringe) 115 ml IV ONCE ONE Stop: 04/20/23 16:48 Last Admin: 04/20/23 16:47 Dose: 115 ml Documented By: MIGUEL ANGEL Description This is a 21 electrode EEG with a single channel dedicated to limited EKG. The electrodes were placed in accordance with the International 10-20 system. There is a posterior dominant rhythm of 10 Hz which is symmetrically distributed and attenuates with eye opening. There is a normal anterior to posterior organization. Photic stimulation is unremarkable. Hyperventilation is not performed. There is a symmetric frontal beta rhythm. There is no focal slowing, there are no epileptiform abnormalities. Interpretation Normal-appearing awake/drowsy EEG. A normal EEG does not completely exclude a diagnosis of epilepsy. Further clinical correlation may be needed. [facility] EEG Procedure Codes Indication for Procedure (1) Episodes of speech arrest: (2) Episodes of staring: (3) Seizure disorder: Neurology Neurology: [id number] EEG include record awake & drowsy
--- NOTE | 2023-04-22 11:06 | Neurology Progress Note ---
Date of Service April 22, 2023 Assessment & Plan (1) Episodes of speech arrest: (2) Episodes of staring: (3) History of craniotomy: Plan 63-year-old female who had presented with an episode of staring and associated speech and movement arrest without associated collapse or loss of awareness. She is neurologically intact and has had an unremarkable neuroimaging evaluation including CT of the head, CTA of the head and neck, and brain MRI. EEG completed this morning was normal as well. At this point, patient presenting signs and symptoms are of undetermined etiology although a partial aware seizure is not excluded, as is an episode of cerebral hypoperfusion due to cardiac arrhythmia or hypotension. I would not recommend starting an antiseizure medication at this time. However, in light of her prior history of craniotomy for subdural hematoma, posttraumatic seizures, and previous seizures potentially related to alcohol use disorder (reportedly in remission), if she were to experience recurrent seizure-like episodes that are not felt to be related to orthostasis, cardiac arrhythmia, or TIA, would recommend restarting Keppra in that context. Would also recommend 30-day mobile cardiac outpatient telemetry with consideration of tilt table testing as well. Admission and Anticipated Discharge Date Admission Date: April 20, 2023 Subjective Follow-up regarding episode of speech arrest, staring, movement arrest No further episodes in the context of this hospitalization. Patient has no complaint, denies headache, vision disturbance, dizziness, vertigo, or weakness. EEG completed this morning normal. Brain MRI completed yesterday was negative for acute or subacute process. There was evidence of mild ischemic microangiopathic disease and mild atrophy not unusual for age. No evidence of mesial temporal sclerosis on thin seizure sections. I did independently review these images. Review of Systems Eyes: no blind spots and no diplopia Cardiovascular: no palpitations Neurologic: as per Subjective / HPI; no gait abnormality, no localized weakness, no loss of sensation, no tremor(s), no headache(s) and no confusion Results & Data Vital Signs (Past 12 Hours) Vital Signs Temp Pulse Pulse Resp BP Pulse Ox O2 Del Method 04/22/23 07:13 68 04/22/23 07:39 36.5 C 68 18 138/79 97 Room Air 04/22/23 03:04 36.6 C 69 18 137/81 94 Room Air 04/21/23 23:01 36.4 C L 64 18 143/81 H 96 Room Air 04/21/23 22:59 74 Laboratory Results WBC 2.94, hemoglobin 14.3, hematocrit 39.6, platelet count 102, sodium 132, potassium 4.2, BUN 13, creatinine 0.71, glucose 88, calcium 9.2 Exam (Neuro) Constitutional: well developed; no acute distress Neurologic: Oriented to:: Person, Place and Time Memory: Short Term Intact and Remote Intact Attention: Span Intact and Concentration Intact Speech Fluency: negative Dysarthria or Dysfluency Fund of Knowledge: Current Events, Past History and Vocabulary Cranial Nerves: Normal II, III, IV, , V, VII, VIII, IX, X, XI and XII Motor Strength: Normal Lower Extremities and Normal Upper Extremities Motor Tone: Normal Lower Extremities and Normal Upper E xtremities Muscle Bulk/Involuntary Movements: No Involuntary Movements Coordination: Normal Coding Level of Care Code 25203 SUB INP/OBS CARE 2/35MIN Diagnoses Episodes of speech arrest R47.89 Episodes of staring R40.4 History of craniotomy Z98.890
--- NOTE | 2023-04-22 16:17 | Hospitalist Progress Note ---
Date of Service April 22, 2023 Assessment & Plan (1) TIA (transient ischemic attack): Plan: Episode of staring and speech arrest ~1 minute of overall weakness, aphasia without LoC or shaking with some residual weakness x30 minutes. No loss of consciousness MRI negative EEG negative Seizure precaution Consider 30-day event monitor Patient is with hyponatremia Neurology recommends no antiseizure medications at this point as this could be related to hyponatremia, cardiac arrhythmia. Once these other issues have been excluded, and if she continues to have recurrent episodes, she may be considered for Anti- epileptic drug like Keppra in future. Subacute hyponatremia Creatinine 0.82 likely euvolemic BSG 81, no pseudohyponatremia Suspect SIADH in the setting of starting new antipsychotic with progressive brain fog and weakness since that time patient was given a small bolus of 3% normal saline and corrected rapidly. She was thus given 500 cc of D5 sodium 132 today Recheck BMP in a.m. Anxiety/Depression - Recently started of Bexiprazole with subsequent progressive foggyness. Suspect induced hyponatremia. Will hold both this and trazodone. - melatonin qHS for sleep - Continue Positive ROSANGELA Follows with rheumatology as an outpatient. Has had chronic joint pain worse in shoulder, not improved on hydroxychloroquine. Aggressive steroid/immunosuppressants were not recommended. Discontinued hydroxychloroquin No acute change in management at this time Seizure disorder, history of craniotomy Follows with [facility] History of TBI and subdural hematoma with craniotomy 2010. Subsequently with seizure disorder on Keppra and stable. Does have history of nonepileptic seizures as well, possibly triggered by alcohol abuse. No residual neurologic deficits from her TBI. She did not have seizures for over 3 years without Keppra or anticonvulsant therapy and this was therefore not continued We will hold off on seizure precautions given risk and hyponatremia history of alcohol abuse Previously within minutes for alcohol intoxication. Has followed up with [facility] and had naltrexone restarted 2021 Liver cirrhosis History of hepatitis C Follows with GI No evidence of congestion/volume overload at this etiology of hyponatremia. Will follow urine studies as above COPD No inhalers at home No wheezing No acute management at this time DVT PPx: SCDs, lovenox CODE: Full Diet: Fluid Restricted disposition: Likely discharge tomorrow (2) Seizure disorder: (3) COPD (chronic obstructive pulmonary disease): (4) Alcoholism: (5) Chronic pancreatitis: (6) Severe pulmonary arterial systolic hypertension: (7) Nonischemic cardiomyopathy: (8) Liver cirrhosis: (9) Pancytopenia: (10) Thrombocytopenia: Admission and Anticipated Discharge Date Admission Date: April 20, 2023 Subjective patient feels better. Denies chest pain or shortness of breath. No further episodes of staring Physical Exam Physical Exam: general: Awake, conversant Heart: S1, S2/regular rate and rhythm, no murmur rubs or gallops Lungs: Clear to auscultation bilaterally. Normal effort Abdomen: Soft/nontender/nondistended. No hepatosplenomegaly Extremities: No clubbing/cyanosis. No edema Behavior: Appropriate, cooperative Results & Data Results & Data Vital Signs (Past 12 Hours) Vital Signs Temp Pulse Pulse Resp BP Pulse Ox O2 Del Method 04/22/23 12:17 36.9 C 67 18 113/69 97 Room Air 04/22/23 07:13 68 04/22/23 07:39 36.5 C 68 18 138/79 97 Room Air Laboratory Results Abnormal lab results 04/21/23 04/22/23 04/22/23 Range/Units 17:54 07:16 07:16 WBC 2.94 L (4.8-10.8) K/ul RBC 4.18 L (4.20-5.40) M/uL MCH 34.2 H (25.0-34.0) pg MCHC 36.1 H (32.0-36.0) g/dL Plt Count 102 L (130-400) K/uL MPV 8.0 L (9.4-12.4) fL Lymph # (Auto) 0.95 L (1.20-3.40) K/uL Sodium 127 L 132 L (136-145) mmol/L Chloride 96 L (98-107) mmol/L BUN/Creatinine Ratio 27.4 H (10-20) Glucose 110 H (70-99(Fasting)) mg/dl Diagnostic Findings Brain MRI 04/21/23 23:10 Exam(s): MRI HEAD Without Contrast EXAM: MR Head Without Intravenous Contrast CLINICAL HISTORY: Reason for exam: TIA/CVA eval. TECHNIQUE: Magnetic resonance images of the head/brain without intravenous contrast in multiple planes. COMPARISON: No relevant prior studies available. FINDINGS: Brain: Subtle T2/flair signal hyperintensity scattered throughout the subcortical and deep white matter consistent with very mild ischemic microangiopathy. Mild age-appropriate cerebral volume loss. No hemorrhage. Ventricles: Unremarkable. No ventriculomegaly. Bones/joints: Postoperative changes right frontotemporal craniotomy. Sinuses: Unremarkable as visualized. No acute sinusitis. Mastoid air cells: Unremarkable as visualized. No mastoid effusion. Orbits: Unremarkable as visualized. Other vasculature: Appropriate vascular flow voids present. IMPRESSION: Mild ischemic microangiopathy, with age appropriate cerebral volume loss. Head CT negative for acute intracranial abnormality. Electronically signed by: Samson Matias MD 04/22/23 00:47 AM PG Care Time/CCT Total # of Minutes Spent Total Time Spent with Patient: Total time spent is greater than 50% in coordination of care (as documented) at patient's floor/unit and/or counseling patient: Coding Level of Care Code 71750 SUB INP/OBS CARE 2/35MIN Diagnoses TIA (transient ischemic attack) G45.9 Seizure disorder G40.909 COPD (chronic obstructive pulmonary disease) J44.9 Alcoholism F10.20 Chronic pancreatitis K86.1 Severe pulmonary arterial systolic hypertension I27.21 Nonischemic cardiomyopathy I42.8 Liver cirrhosis K74.60 Pancytopenia D61.818 Thrombocytopenia D69.6
[2023-04-23] MEDS ORDERED: ONDANSETRON INJ 2 MG/ML 2 ML VIAL IV PRN (06:29)
[2023-04-23 07:43] LABS: Basophils # (auto) 0.02 K/uL (0.00-0.20); Basophils % (auto) 0.7 %; Eosinophils # (auto) 0.09 K/uL (0.00-0.50); Eosinophils % (auto) 3.2 %; Hematocrit (blood only) 39.5 % (37.0-47.0); Hemoglobin 14.2 g/dl (12.0-16.0); Lymphocytes # (auto) 0.93 K/uL (1.20-3.40); Lymphocytes % (auto) 32.7 %; Mean Corpuscular Hemoglobin 34.1 pg (25.0-34.0); Mean Corpuscular Hgb Conc 35.9 g/dL (32.0-36.0); Mean Corpuscular Volume 94.7 fL (80.0-100.0); Mean Platelet Volume 8.3 fL (9.4-12.4); Monocytes # (auto) 0.36 K/uL (0.11-0.59); Monocytes % (auto) 12.7 %; Neutrophils # (auto) 1.44 K/uL (1.40-6.50); Neutrophils % (auto) 50.7 %; Platelet Count 99 K/uL (130-400); RDW Coefficient of Variation 11.3 % (11.5-14.5); RDW Standard Deviation 39.3 fL (36.4-46.3); Red Blood Count 4.17 M/uL (4.20-5.40); White Blood Count 2.84 K/ul (4.8-10.8)
[2023-04-23 07:54] LABS: BUN Creatinine Ratio 12.3 (10-20); Calcium 8.9 mg/dl (8.6-10.3); Creatinine Clr Calc Pharmacy 81.9 ml/min; Est GFR (African American) 108.7 ml/min; Est GFR (Non-African American) 93.8 ml/min; Potassium 4.2 mmol/L (3.5-5.1)
[2023-04-23] MEDS: MULTIVITAMIN TAB PO SCH (08:12)
[2023-04-23] MEDS: METOPROLOL SUCC 25MG EXT REL TAB PO SCH (08:12)
[2023-04-23] MEDS: busPIRone 15 MG TAB PO SCH (08:12)
[2023-04-23] MEDS: ENOXAPARIN INJ 40 MG/0.4 ML SYR SQ SCH (08:12)
[2023-04-23] MEDS: PANTOprazole 40 MG TAB PO SCH (08:13)
[2023-04-23] MEDS: CALCIUM 600MG + VIT D 400 IU TAB PO SCH (08:13)
[2023-04-23] MEDS: TRINTELLIX: ORDER AWAITING ACTION SCH (08:13)
[2023-04-23] MEDS: MELOXICAM 7.5 MG TAB PO SCH (08:13)
--- NOTE | 2023-04-23 14:10 | Discharge Summary ---
Date of Service April 23, 2023 Admission HPI Per Admitting Provider Nury is a 63-year-old female with past medical history of nonischemic cardiomyopathy, COPD with tobacco abuse, alcohol abuse, seizure disorder without recent seizures, positive ROSANGELA, cirrhosis, history of craniotomy bur hole Nury was at a friends house and they noticed midway through she was 'nolonger in the conversation.' Was not responding or reaction and appeared confused and had word finding difficulty. She reports she did not lose conciousness or pass out, but felt very weak and had trouble moving and responding 'like my body was asleep'. Worst of it passed after 30seconds-1 minute, but then felt a little off for ~30 minutes after. [place] weak all over 'and kind of just froze'. [place] numb in the arms and legs, both sides without either side beign particularly worse. No chest pain or chest pressure No bowel or bladder incontience Did not feel similar to prior seizures 10years ago, this felt different and new. No longer on seizure meds, no seizure in 10 yrs She reports she has been thirsty and drinking a lot in the last fe wdays. Appetite is a little less so taking more protein shakes. Hx of alcoholism in remission. has been drinking non-alocholic beer daily, but no alcohol intake in the last year. Last day was March 11 2022. Peeing normally. no dysuria. "No change. Including at night about 3 times per 24 hours, surprised its not more for how much I drink' Dry cough and allergies all summer/spring, worse at night but no change recently. Benadryl nightly seems to help a little. Also intermittent itching with no rash. Recently had Rexulti (bexiprazole) added ot antidepressant regimen 2 months ago. Has felt more 'brain fog' like being a little 'dumbed down' since starting this. Also takes buspar Medical History: Reviewed Medications: Reviewed Surgical History: Reviewed Family history: Reviewed Allergies: Reviewed Social History: Former etoh use in remission. Code Status: Full Admission Exam Per Admitting Provider General: A&Ox3. NAD. Cooperative. HEENT: Atraumatic, normocephalic. Pulm: CTAB A&P. -wheezes, -rales, -rhonchi. Symmetrical chest rise. No increased work of breathing. No respiratory distress. Cardiac: RRR, -mrg. Radial pulses intact and symmetrical. Abdominal: Nontender, nondistended, soft. BS present. Ext: Warm. dry. no edema. Sensation grossly intact in arms and legs to soft touch, qualitatively 'off' compared to normal. Strenght 5/5 in upper and lower extremities. Principal Diagnosis Episode of staring and speech arrest Hyponatremia Discharge Exam general: Awake, conversant Heart: S1, S2/regular rate and rhythm, no murmur rubs or gallops Lungs: Clear to auscultation bilaterally. Normal effort Abdomen: Soft/nontender/nondistended. No hepatosplenomegaly Extremities: No clubbing/cyanosis. No edema Behavior: Appropriate, cooperative Discharge Data Allergies Allergy/AdvReac Type Severity Reaction Status Date / Time gabapentin AdvReac Severe Confusion Verified 03/17/23 14:46 acetaminophen [From Tylenol] AdvReac Unknown CONTRAINDICATED Verified 03/17/23 14:46 DUE TO LIVER ISSUES ibuprofen AdvReac Unknown CONTRAINDICATED Verified 03/17/23 14:46 DUE TO LIVER ISSUES Consultations 04/20/23 17:46 ED Decision to Admit Stat 04/21/23 08:11 Consult Neurology Routine Ordered Studies 04/20/23 16:05 CT head/brain wo con Stat 04/20/23 16:18 CT angio head w con Stat CT angio neck with con Stat 04/21/23 23:10 MR brain wo con Routine Hospital Course (1) TIA (transient ischemic attack): Episode of staring and speech arrest ~1 minute of overall weakness, aphasia without LoC or shaking with some residual weakness x30 minutes. No loss of consciousness MRI negative EEG negative Seizure precaution being discharged with a 30-day event monitor Patient is with hyponatremia Neurology recommends no antiseizure medications at this point as this could be related to hyponatremia, cardiac arrhythmia. Once these other issues have been excluded, and if she continues to have recurrent episodes, she may be considered for Anti- epileptic drug like Keppra in future. Patient will follow-up with neurology in 1 month. Subacute hyponatremia Creatinine 0.82 likely euvolemic BSG 81, no pseudohyponatremia Suspect SIADH in the setting of starting new antipsychotic with progressive brain fog and weakness since that time Versus pseudohyponatremia secondary to polydipsia. Per patient's , she drinks too much of fluid all day. sodium 127 today Patient advised on fluid restriction 1.5 L/day Patient has an appointment set up in 2 days. She was informed that she may have blood drawn on the day of her PCP appointment Anxiety/Depression - Recently started of Bexiprazole with subsequent progressive foggyness. Suspect induced hyponatremia. resumed all antianxiety/antidepressants. PCP to consider stopping some of these medications that could be responsible for hyponatremia/Brain fogginess. - melatonin qHS for sleep - Continue Positive ROSANGELA Follows with rheumatology as an outpatient. Has had chronic joint pain worse in shoulder, not improved on hydroxychloroquine. Aggressive steroid/immunosuppressants were not recommended. Discontinued hydroxychloroquin No acute change in management at this time Seizure disorder, history of craniotomy Follows with [facility] History of TBI and subdural hematoma with craniotomy 2010. Subsequently with seizure disorder on Keppra and stable. Does have history of nonepileptic seizures as well, possibly triggered by alcohol abuse. No residual neurologic deficits from her TBI. She did not have seizures for over 3 years without Keppra or anticonvulsant therapy and this was therefore not continued We will hold off on seizure precautions given risk and hyponatremia history of alcohol abuse Previously within minutes for alcohol intoxication. Has followed up with [facility] and had naltrexone restarted 2021 Liver cirrhosis History of hepatitis C Follows with GI No evidence of congestion/volume overload at this etiology of hyponatremia. Will follow urine studies as above COPD No inhalers at home No wheezing No acute management at this time DVT PPx: SCDs, lovenox CODE: Full Diet: Fluid Restricted disposition: discharge today (2) Seizure disorder: (3) COPD (chronic obstructive pulmonary disease): (4) Alcoholism: (5) Chronic pancreatitis: (6) Severe pulmonary arterial systolic hypertension: (7) Nonischemic cardiomyopathy: (8) Liver cirrhosis: (9) Pancytopenia: (10) Thrombocytopenia: Total Time Total Time Spent Total Time Spent (In Minutes): 35 Discharge Plan Discharge Items Patient Disposition: Home - Self-Care Reason For Visit: HYPONATREMIA, WEAKNESS Discharge Diagnosis: Episode of staring and speech arrest Hyponatremia Activity: Resume your previous activity Non-emergency contact: Primary Care Provider Call non-emergency contact if: you have any medication questions and your symptoms worsen Follow-up/Referrals: Dorothy Valdes CRNP [Primary Care Provider] - 04/25/23 8:45 am (Follow up appoitment with Dr. Carvalho ) Diet: Heart Healthy Fluids: 1500ml (6 cups) Addtl Attending Provider Instructions: advised to follow-up with PCP in 1 week Advised to restrict fluid intake to 1.5 L/day Advised that you will likely need blood work (basic metabolic panel) done on the day of your PCP appointment. Advised that you are being discharged with a furniture stainer Advised to follow-up with your neurologist in 1 month Pending Studies at Discharge: No Stand-Alone Forms: My [facility] Medications and DC Order Prescriptions: Continued calcium carbonate-vitamin D3 [Calcium 600 with Vitamin D3] 600 mg-12.5 mcg (500 unit) capsule 1 cap PO DAILY Trintellix 10 mg tablet 10 mg PO DAILY triamcinolone acetonide [Kenalog] 40 mg/mL suspension 40 mg intra-articular ONCE Qty: 1 0RF metoprolol succinate 25 mg tablet extended release 24 hr 25 mg PO DAILY rizatriptan 10 mg tablet,disintegrating 10 mg PO DIRECTED MDD 3 DOSES/24 HOURS PRN (Reason: Migraine Headache) Rx Instructions: TAKE 10 MG AT ONSET OF YEPEZ, THEN REPEAT IN 2 HOURS IF NEEDED. MAX 3 DOSES/24 HOURS. meloxicam 15 mg tablet 15 mg PO DAILY Qty: 30 0RF omeprazole 40 mg capsule,delayed release(DR/EC) 40 mg PO DAILY alendronate 35 mg tablet 35 mg PO WK trazodone 150 mg tablet 150 mg PO HS PRN (Reason: Sleep) buspirone 30 mg tablet 30 mg PO BID diazepam 5 mg tablet 5 mg PO DAILY PRN (Reason: Anxiety) Centrum Women 18-400 mg-mcg Tablet 1 tab PO DAILY Rexulti 0.5 mg tablet 0.5 mg PO HS Discharge Orders: Discharge Order (Routine); Ordered 04/23/23 Ordered By: Christopher Javier Admission Data Admit Date/Time: 04/20/23 18:26 Attending Provider: Christopher Javier Admit Provider: Leo العلي Primary Care Provider: Dorothy Valdes Other Providers: Leo العلي ; Bryn Graham Other Interventions: Discharge Summary Assessment (RN) Last Done: 04/23/23 14:30 Coding Level of Care Code 49780 INP/OBS DISCH >30 MIN Diagnoses TIA (transient ischemic attack) G45.9 Seizure disorder G40.909 COPD (chronic obstructive pulmonary disease) J44.9 Alcoholism F10.20 Chronic pancreatitis K86.1 Severe pulmonary arterial systolic hypertension I27.21 Nonischemic cardiomyopathy I42.8 Liver cirrhosis K74.60 Pancytopenia D61.818 Thrombocytopenia D69.6
[2023-04-24 15:12] LABS: Babesia microti DNA Not Detected (Not Detected)
[2023-04-25 08:11] LABS: Ehrlichia chaff DNA Bld Negative (Negative)
== END 2023-04-23 15:57 | disposition home or self-care (01) | DRG 69 ==
LOC: ED 15:53 → 2S 18:26 → SUATTDRO 18:26 → 2S 19:46

== ENCOUNTER 2023-04-24 12:38 | Inpatient (IN) ==
[2023-04-24] MEDS ORDERED: SODIUM CHLORIDE 0.9% 1,000 ML IV ONE ×2 (13:24→15:03)
[2023-04-24] MEDS ORDERED: ACETAMINOPHEN 1,000 MG/100 ML VIAL IV STA (13:24)
--- NOTE | 2023-04-24 13:28 | Emergency Department Note ---
Impression & Plan Acute hyponatremia ED Provider Note HISTORY OF PRESENT ILLNESS: Patient is a 63-year-old female presenting with an episode of "being frozen." She states that she awoke this morning and felt like she could not move and that she could not speak. She reports she had a similar episode occur 4 days ago when she was admitted to the hospital for. She denies any recent head injury or chiropractic manipulation of her neck. She denies any anticoagulation use. She reports reports a current headache at this time. Denies any numbness or tingling or weakness in her extremities. Denies any chest pain or shortness of breath. ROS: as above PHYSICAL EXAM: Constitutional: Patient appears in no acute distress. HENT: Head: Normocephalic and atraumatic. Eyes: EOMI, PERRL Mouth/Throat: Mucous membranes moist. Neck: Trachea midline. Neck supple. Cardiovascular: RRR, No murmurs, rubs or gallops. Intact distal pulses. Pulmonary/Chest: No respiratory distress. Breath sounds clear and equal bilaterally. No wheezes or rales. Abdominal: Abdomen soft, no tenderness, rebound or guarding. Musculoskeletal: No edema, tenderness or deformity noted. Skin: Warm and dry. No rash, erythema, pallor or cyanosis Psychiatric: Appropriate mood and affect for situation. Neurological: Alert and keenly responsive. CN II-XII grossly intact, moving all extremities equally and fully. MDM: - Vitals signs showed hypertension - History obtained via patient. Patient presents with episode of "being froz en." She reports she awoke this morning and felt like she could not move and could not speak. Reports the symptoms lasted for around 30 minutes. States that this occurred 4 days ago when she was admitted to the hospital. Denies any recent head injury or chiropractic manipulation of her neck. Denies any chest pain or shortness of breath. - Chronic conditions affecting care: chronic hyponatremia; COPD; non-ischemic cardiomyopathy - Differential diagnoses include, but are not limited to: Electrolyte abnormality; CVA; intracranial hemorrhage; UTI; pneumonia - Order placed for continuous cardiac monitoring. At this time, monitor showed rate of 65 bpm with normal sinus rhythm, per my interpretation. - External medical records reviewed. Discharge summary dated 04/23/2023 was reviewed. Per their documentation, they suspected SIADH in the setting of starting a new antipsychotic as a cause for her hyponatremia and her symptoms. - EKG reviewed by myself showed normal sinus rhythm. Rate 65 bpm. QTc 457. No acute ischemic changes - Laboratory workup interpreted by myself showed chronic leukopenia (WBC 3.17); thrombocytopenia (plt 111); hyponatremia (Na 125); normal glucose; transaminitis (AST 61; ALT 77); normal troponin; normal ammonia - UA negative for infection - CXR negative for pneumonia, per my interpretation - Patient given 1L NS in ER. No hypertonic saline was given at this point, given that the patient has no confusion on examination and she has chronic hyponatremia - Discussion was had with social group worker about patient's case and need for admission - Hospitalist consulted for admission - Patient admitted to [facility] service for further evaluation and management. ASSESSMENT AND PLAN: Diagnosis: Hyponatremia Plan: Admit Past Med/Surg History Medical History Alcohol intoxication Alcoholism Chronic hyponatremia Chronic pancreatitis COPD (chronic obstructive pulmonary disease) Displacement 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 (08/22/11) History of craniotomy Due to subdural hematoma from fall History of tobacco abuse Nonischemic cardiomyopathy Positive ROSANGELA (antinuclear antibody) Seizure disorder (05/16/12) Severe pulmonary arterial systolic hypertension Thrombocytopenia Uterine leiomyoma (07/18/11) Surgical History History of arthroscopic procedure on shoulder History of onel hole surgery History of carpal tunnel surgery History of cholecystectomy History of hysterectomy S/P cervical spinal fusion Family History Mother Hypertension Social History Smoking Status: Former smoker Tobacco Type: Cigarettes Second Hand Exposure: No; Do You Dip or Chew Tobacco: No; Hx Alcohol Use: No Hx Substance Use: No Preferred Language: Kuwaiti Communication Ability: Effective Stock Grader Required: No Beliefs That Will Affect Care: None marital status: Single Current Living Situation: Spouse current occupational status: unemployed How many Children do You have: 0 Feels Safe at Home: Yes Assistive Devices: None Allergies Allergies Allergy/AdvReac Type Severity Reaction Status Date / Time gabapentin AdvReac Severe Confusion Verified 04/24/23 17:04 acetaminophen [From Tylenol] AdvReac Unknown CONTRAINDICATED Verified 04/24/23 17:04 DUE TO LIVER ISSUES ibuprofen AdvReac Unknown CONTRAINDICATED Verified 04/24/23 17:04 DUE TO LIVER ISSUES Home Meds Home Medications Medication Instructions Recorded Confirmed metoprolol succinate 25 mg 25 mg PO DAILY 11/21/21 04/24/23 tablet,extended release 24 hr rizatriptan 10 mg disintegrating 10 mg PO DIRECTED PRN Migraine 11/21/21 04/24/23 tablet Headache vortioxetine 10 mg tablet 10 mg PO DAILY 06/03/22 04/24/23 (Trintellix) calcium carbonate 600 mg-vitamin 1 cap PO DAILY 08/02/22 04/24/23 D3 12.5 mcg (500 unit) capsule (Calcium 600 with Vitamin D3) alendronate 35 mg tablet 35 mg PO WK 04/20/23 04/24/23 brexpiprazole 0.5 mg tablet 0.5 mg PO HS 04/20/23 04/24/23 (Rexulti) buspirone 30 mg tablet 30 mg PO BID 04/20/23 04/24/23 diazepam 5 mg tablet 5 mg PO DAILY PRN Anxiety 04/20/23 04/24/23 multivitamin-ferrous 1 tab PO DAILY 04/20/23 04/24/23 fumarate-folic acid 18 mg-400 mcg tablet (Centrum Women) omeprazole 40 mg capsule,delayed 40 mg PO DAILY 04/20/23 04/24/23 release trazodone 150 mg tablet 150 mg PO HS PRN Sleep 04/20/23 04/24/23 Previous Rx's Medication Instructions Recorded meloxicam 15 mg tablet 15 mg PO DAILY #30 tabs 03/16/22 Results & Data (ED) Vital Signs Vital Signs - 24 hr 04/24/23 12:45 04/24/23 14:23 04/24/23 15:00 Temperature 36.3 C L Temperature Source Temporal Artery Scan Pulse Rate 70 64 64 Respiratory Rate 16 18 Blood Pressure 157/79 H Blood Pressure Mean 105 Pulse Oximetry 98 99 Oxygen Delivery Method Room Air Room Air Sepsis Recent Fever Within 48 Hours No Sepsis New/Unexplained Change in Mental Status N/A Sepsis Action Taken by Nursing No Action Required 04/24/23 15:00 04/24/23 14:24 04/24/23 15:28 Temperature Temperature Source Pulse Rate 66 64 Respiratory Rate 16 18 Blood Pressure 145/74 H 158/73 H Blood Pressure Mean 97 101 Pulse Oximetry 98 99 100 Oxygen Delivery Method Room Air Room Air Room Air Sepsis Recent Fever Within 48 Hours Sepsis New/Unexplained Change in Mental Status Sepsis Action Taken by Nursing Laboratory Data 04/24/23 14:11 04/24/23 14:11 Lab Results 04/24/23 04/24/23 04/24/23 Range/Units 14:11 14:11 14:11 WBC 3.17 L (4.8-10.8) K/ul RBC 3.78 L (4.20-5.40) M/uL Hgb 13.0 (12.0-16.0) g/dl Hct 35.3 L (37.0-47.0) % MCV 93.4 (80.0-100.0) fL MCH 34.4 H (25.0-34.0) pg MCHC 36.8 H (32.0-36.0) g/dL RDW Std Deviation 39.4 (36.4-46.3) fL RDW Coeff of [place] 11.6 (11.5-14.5) % Plt Count 111 L (130-400) K/uL MPV 8.4 L (9.4-12.4) fL Immature Gran % (Auto) 0.3 % Neut % (Auto) 62.8 % Lymph % (Auto) 21.1 % Miller % (Auto) 13.9 % Eos % (Auto) 1.3 % Baso % (Auto) 0.6 % Neut # (Auto) 1.99 (1.40-6.50) K/uL Lymph # (Auto) 0.67 L (1.20-3.40) K/uL Miller # (Auto) 0.44 (0.11-0.59) K/uL Eos # (Auto) 0.04 (0.00-0.50) K/uL Baso # (Auto) 0.02 (0.00-0.20) K/uL Immature Gran # (Auto) 0.01 (0.01-0.20) K/uL Sodium 125 L (136-145) mmol/L Potassium 3.9 (3.5-5.1) mmol/L Chloride 96 L (98-107) mmol/L Carbon Dioxide 23 (21-32) mmol/L Anion Gap 6 (3-11) BUN 9 (6-23) mg/dl Creatinine 0.72 (0.6-1.2) mg/dl Est Cr Clr Drug Dosing 80.1 ml/min Est GFR ( Amer) 102.6 ml/min Est GFR (Non-Af Amer) 88.5 ml/min BUN/Creatinine Ratio 12.5 (10-20) Glucose 135 H (70-99(Fasting)) mg/dl Lactate 1.5 (0.4-2.0) mmol/L Calcium 8.7 (8.6-10.3) mg/dl Magnesium 1.7 (1.7-2.4) mg/dl Total Bilirubin 0.6 (0.2-1.0) mg/dl AST 61 H (13-39) U/L ALT 77 H (7-52) U/L Alkaline Phosphatase 54 (34-104) U/L Ammonia (18-72) umol/L Troponin I High Sens < 2.3 (0-14) pg/ml Total Protein 7.0 (6.0-8.3) gm/dl Albumin 4.3 (3.4-5.0) gm/dl Globulin 2.7 (2.5-4.0) gm/dl Albumin/Globulin Ratio 1.6 (0.9-2) Urine Color Urine Appearance (Clear) Urine pH (4.5-7.5) Ur Specific [place] (1.000-1.030) Urine Protein (Negative) Urine Glucose (UA) (Negative) Urine Ketones (Negative) Urine Blood (Negative) Urine Nitrite (Negative) Urine Bilirubin (Negative) Urine Urobilinogen (Negative) Ur Leukocyte Esterase (Negative) 04/24/23 04/24/23 Range/Units 14:11 15:30 WBC (4.8-10.8) K/ul RBC (4.20-5.40) M/uL Hgb (12.0-16.0) g/dl Hct (37.0-47.0) % MCV (80.0-100.0) fL MCH (25.0-34.0) pg MCHC (32.0-36.0) g/dL RDW Std Deviation (36.4-46.3) fL RDW Coeff of [place] (11.5-14.5) % Plt Count (130-400) K/uL MPV (9.4-12.4) fL Immature Gran % (Auto) % Neut % (Auto) % Lymph % (Auto) % Miller % (Auto) % Eos % (Auto) % Baso % (Auto) % Neut # (Auto) (1.40-6.50) K/uL Lymph # (Auto) (1.20-3.40) K/uL Miller # (Auto) (0.11-0.59) K/uL Eos # (Auto) (0.00-0.50) K/uL Baso # (Auto) (0.00-0.20) K/uL Immature Gran # (Auto) (0.01-0.20) K/uL Sodium (136-145) mmol/L Potassium (3.5-5.1) mmol/L Chloride (98-107) mmol/L Carbon Dioxide (21-32) mmol/L Anion Gap (3-11) BUN (6-23) mg/dl Creatinine (0.6-1.2) mg/dl Est Cr Clr Drug Dosing ml/min Est GFR ( Amer) ml/min Est GFR (Non-Af Amer) ml/min BUN/Creatinine Ratio (10-20) Glucose (70-99(Fasting)) mg/dl Lactate (0.4-2.0) mmol/L Calcium (8.6-10.3) mg/dl Magnesium (1.7-2.4) mg/dl Total Bilirubin (0.2-1.0) mg/dl AST (13-39) U/L ALT (7-52) U/L Alkaline Phosphatase (34-104) U/L Ammonia 49.0 (18-72) umol/L Troponin I High Sens (0-14) pg/ml Total Protein (6.0-8.3) gm/dl Albumin (3.4-5.0) gm/dl Globulin (2.5-4.0) gm/dl Albumin/Globulin Ratio (0.9-2) Urine Color Yellow Urine Appearance Clear (Clear) Urine pH 6.0 (4.5-7.5) Ur Specific [place] 1.009 (1.000-1.030) Urine Protein Negative (Negative) Urine Glucose (UA) Negative (Negative) Urine Ketones Negative (Negative) Urine Blood Negative (Negative) Urine Nitrite Negative (Negative) Urine Bilirubin Negative (Negative) Urine Urobilinogen Negative (Negative) Ur Leukocyte Esterase Negative (Negative) Administered Medications Discontinued Medications Sodium Chloride (Nss) 1,000 mls @ 999 mls/hr IV .Q1H1M ONE Stop: 04/24/23 14:24 Last Infusion: 04/24/23 16:08 Dose: 0 mls/hr Documented By: Admin: 04/24/23 14:14 Dose: 999 mls/hr Documented By: HVS Acetaminophen (Ofirmev) 1,000 mg in 100 mls @ 400 mls/hr IV NOW STA Stop: 04/24/23 13:38 Last Infusion: 04/24/23 14:35 Dose: 0 mls/hr Documented By: Admin: 04/24/23 14:14 Dose: 400 mls/hr Documented By: HVS Sodium Chloride (Nss) 1,000 mls @ 999 mls/hr IV .Q1H1M ONE Stop: 04/24/23 16:03 Last Admin: 04/24/23 16:11 Dose: 999 mls/hr Documented By: WCS Imaging Data Radiologist's Impression: Chest X-Ray 04/24/23 13:24 XR chest 1V portable HISTORY: weakness COMPARISON: Chest 04/20/2023. FINDINGS: The lungs are clear. Cardiac silhouette is normal in size. No pleural effusions. No pneumothorax. Prior cholecystectomy. Cervical spinal fusion hardware again noted. IMPRESSION: No acute process. ACT 112: Negative or not required by law. Electronically signed by: Charan Miles M.D. 04/24/2023 2:26 PM Discharge Plan Visit Data Chief Complaint: Confusion Stated Complaint: CONFUSION,SPEECH,"FREEZING",CRAMPS IN FEET/HANDS ED Provider: Sandhya Alex Discharge Problem: Acute hyponatremia Forms Stand Alone Forms: My [facility] [address] Prescriptions Prescriptions: No Action calcium carbonate-vitamin D3 [Calcium 600 with Vitamin D3] 600 mg-12.5 mcg (500 unit) capsule 1 cap PO DAILY Trintellix 10 mg tablet 10 mg PO DAILY triamcinolone acetonide [Kenalog] 40 mg/mL suspension 40 mg intra-articular ONCE Qty: 1 0RF metoprolol succinate 25 mg tablet extended release 24 hr 25 mg PO DAILY rizatriptan 10 mg tablet,disintegrating 10 mg PO DIRECTED MDD 3 DOSES/24 HOURS PRN (Reason: Migraine Headache) Rx Instructions: TAKE 10 MG AT ONSET OF YEPEZ, THEN REPEAT IN 2 HOURS IF NEEDED. MAX 3 DOSES/24 HOURS. meloxicam 15 mg tablet 15 mg PO DAILY Qty: 30 0RF omeprazole 40 mg capsule,delayed release(DR/EC) 40 mg PO DAILY alendronate 35 mg tablet 35 mg PO WK trazodone 150 mg tablet 150 mg PO HS PRN (Reason: Sleep) buspirone 30 mg tablet 30 mg PO BID diazepam 5 mg tablet 5 mg PO DAILY PRN (Reason: Anxiety) Centrum Women 18-400 mg-mcg Tablet 1 tab PO DAILY Rexulti 0.5 mg tablet 0.5 mg PO HS Referrals Referrals: Dorothy Valdes CRNP [Outside Practitioners] -
--- NOTE | 2023-04-24 14:28 | XRay Report ---
XR chest 1V portable HISTORY: weakness COMPARISON: Chest 04/20/2023. FINDINGS: The lungs are clear. Cardiac silhouette is normal in size. No pleural effusions. No pneumot horax. Prior cholecystectomy. Cervical spinal fusion hardware again noted. IMPRESSION: No acute process. ACT 112: Negative or not required by law. Electronically signed by: Charan Miles M.D. 04/24/2023 2:26 PM
[2023-04-24 14:43] LABS: Basophils # (auto) 0.02 K/uL (0.00-0.20); Basophils % (auto) 0.6 %; Eosinophils # (auto) 0.04 K/uL (0.00-0.50); Eosinophils % (auto) 1.3 %; Hematocrit (blood only) 35.3 % (37.0-47.0); Immature Granulocytes # (auto) 0.01 K/uL (0.01-0.20); Immature Granulocytes % (auto) 0.3 %; Lymphocytes # (auto) 0.67 K/uL (1.20-3.40); Lymphocytes % (auto) 21.1 %; Mean Corpuscular Hemoglobin 34.4 pg (25.0-34.0); Mean Corpuscular Hgb Conc 36.8 g/dL (32.0-36.0); Mean Corpuscular Volume 93.4 fL (80.0-100.0); Mean Platelet Volume 8.4 fL (9.4-12.4); Monocytes # (auto) 0.44 K/uL (0.11-0.59); Monocytes % (auto) 13.9 %; Neutrophils # (auto) 1.99 K/uL (1.40-6.50); Neutrophils % (auto) 62.8 %; Platelet Count 111 K/uL (130-400); RDW Coefficient of Variation 11.6 % (11.5-14.5); RDW Standard Deviation 39.4 fL (36.4-46.3); Red Blood Count 3.78 M/uL (4.20-5.40); White Blood Count 3.17 K/ul (4.8-10.8)
[2023-04-24 15:00] LABS: Alanine Aminotransferase 77 U/L (7-52); Albumin Globulin Ratio 1.6 (0.9-2); Albumin Level 4.3 gm/dl (3.4-5.0); Alkaline Phosphatase 54 U/L (34-104); Anion Gap 6 (3-11); Aspartate Aminotransferase 61 U/L (13-39); BUN Creatinine Ratio 12.5 (10-20); Bilirubin,Total 0.6 mg/dl (0.2-1.0); Blood Urea Nitrogen 9 mg/dl (6-23); Calcium 8.7 mg/dl (8.6-10.3); Carbon Dioxide 23 mmol/L (21-32); Chloride 96 mmol/L (98-107); Creatinine Clr Calc Pharmacy 80.1 ml/min; Est GFR (African American) 102.6 ml/min; Est GFR (Non-African American) 88.5 ml/min; Globulin 2.7 gm/dl (2.5-4.0); Glucose 135 mg/dl (70-99(Fasting)); Magnesium 1.7 mg/dl (1.7-2.4); Potassium 3.9 mmol/L (3.5-5.1); Sodium 125 mmol/L (136-145)
[2023-04-24 15:06] LABS: Troponin I High Sensitivity < 2.3 pg/ml (0-14)
[2023-04-24 15:41] LABS: Appearance Urine Clear (Clear); Bilirubin Urine Negative (Negative); Blood Urine Negative (Negative); Color Urine Yellow; Glucose Urine UA Negative (Negative); Ketones Urine Negative (Negative); Leukocyte Esterase Urine Negative (Negative); Nitrite Urine Negative (Negative); Protein Urine Negative (Negative); Specific Gravity Urine 1.009 (1.000-1.030); Urobilinogen Urine Negative (Negative)
--- NOTE | 2023-04-24 19:02 | History & Physical Report ---
Date of Service April 24, 2023 Assessment & Plan (1) Episodes of speech arrest: (2) Episodes of staring: (3) Acute hyponatremia: (4) Seizure disorder: (5) History of craniotomy: (6) COPD (chronic obstructive pulmonary disease): (7) Depression: Plan Patient is a 63-year-old female PMH of nonischemic cardiomyopathy, COPD, history alcohol abuse, seizure disorder w/o recent one, cirrhosis (hepatitis C) history of craniotomy due to subdural hematoma (2010) presenting with an episode of "being frozen." Episode of staring and speech arrest 1 minute of overall weakness, without LOC or shaking with some residual weakness x 1 hour - associated with palpitations and headaches Admitted on 04/20 for same symtoms, workup negative, EEG negative Neurology consulted, will appreciated recommendations -Patient will be admitted to med- surge/ telemetry for continuos monitoring sub-acute euvolemic hyponatremia psychologic polydipsia vs low solute diet, do not suspect SIADH in setting of low urine osm previously sodium 125 today Received NSS bolus on ER on fluid restriction 1.5 L/day -urine osmolality and urine sodium ordered -Follow labs am gastroenteritis - could be attributing the hyponatremia - probably IBS -Probiotics ordered Liver cirrhosis History of hepatitis C -Elevated transaminitis: seem chronic -ammonia:49 Follow labs am Anxiety/Depression - Recently started of Bexiprazole with subsequent progressive fogginess. Suspect induced hyponatremia. -Continue home medications Seizure disorder, history of craniotomy Follows with [facility] History of TBI and subdural hematoma with craniotomy 2010. Subsequently with seizure disorder on Keppra and stable. History of alcohol abuse - no alcohol use for 1 year COPD No inhalers at home No wheezing No acute management at this time Dispo: Med-surge/telemetry DVT PPx: lovenox CODE: Full Diet: Fluid Restricted Consults: neurology History of Present Illness Primary Care Provider: Swetha Prakash DO Patient is a 63-year-old female PMH of nonischemic cardiomyopathy, COPD, history alcohol abuse, seizure disorder w/o recent one, cirrhosis (hepatitis C) history of craniotomy due to subdural hematoma (2010) presenting with an episode of "being frozen."She describe the episodes as unable to speak or move for less than a minute, headaches and palpitations. After, she naga slower than usual. She was admitted 4 days ago for the same reasons. Additionally she refers some watery diarrhea and right abdominal pain with bowel movements. She denied any numbness, tinglings, SOB, chest pain, nausea or vomiting. Patient was admitted here for the same symptoms, was discharge yesterday. Negative head images on the admission. She was discharge with a 30 day even monitor. She was found with hyponatremia suspected SIADH ins the setting of starting a new antipsychotic medication (Bexiprazole), she does refers polydipsia. Neurology was consulted no antiseizure medications at this point, episode could be related to hyponatremia, cardiac arrhythmia. Once these other issues have been excluded, and if she continues to have recurrent episodes, she may be considered for Anti- epileptic drug like Keppra in future. Allergies Allergy/AdvReac Type Severity Reaction Status Date / Time gabapentin AdvReac Severe Confusion Verified 04/24/23 17:04 acetaminophen [From Tylenol] AdvReac Unknown CONTRAINDICATED Verified 04/24/23 17:04 DUE TO LIVER ISSUES ibuprofen AdvReac Unknown CONTRAINDICATED Verified 04/24/23 17:04 DUE TO LIVER ISSUES Home Medications Medication Instructions Recorded Confirmed Type metoprolol succinate 25 mg 25 mg PO DAILY 11/21/21 04/24/23 History tablet,extended release 24 hr rizatriptan 10 mg disintegrating 10 mg PO DIRECTED PRN Migraine 11/21/21 04/24/23 History tablet Headache meloxicam 15 mg tablet 15 mg PO DAILY #30 tabs 03/16/22 04/24/23 Rx vortioxetine 10 mg tablet 10 mg PO DAILY 06/03/22 04/24/23 History (Trintellix) calcium carbonate 600 mg-vitamin 1 cap PO DAILY 08/02/22 04/24/23 History D3 12.5 mcg (500 unit) capsule (Calcium 600 with Vitamin D3) alendronate 35 mg tablet 35 mg PO WK 04/20/23 04/24/23 History brexpiprazole 0.5 mg tablet 0.5 mg PO QAM 04/20/23 04/24/23 History (Rexulti) buspirone 30 mg tablet 30 mg PO BID 04/20/23 04/24/23 History diazepam 5 mg tablet 5 mg PO DAILY PRN Anxiety 04/20/23 04/24/23 History multivitamin-ferrous 1 tab PO DAILY 04/20/23 04/24/23 History fumarate-folic acid 18 mg-400 mcg tablet (Centrum Women) omeprazole 40 mg capsule,delayed 40 mg PO DAILY 04/20/23 04/24/23 History release trazodone 150 mg tablet 75 - 150 mg PO HS PRN Sleep 04/20/23 04/24/23 History Past Med/Surg History Medical History (Updated 04/24/23 @ 19:16 by Reyna Queen MD) Alcohol intoxication Alcoholism Chronic hyponatremia Chronic pancreatitis COPD (chronic obstructive pulmonary disease) Displacement 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 (08/22/11) History of craniotomy Due to subdural hematoma from fall History of tobacco abuse Nonischemic cardiomyopathy Positive ROSANGELA (antinuclear antibody) Seizure disorder (05/16/12) Severe pulmonary arterial systolic hypertension Thrombocytopenia Uterine leiomyoma (07/18/11) Surgical History History of arthroscopic procedure on shoulder History of onel hole surgery History of carpal tunnel surgery History of cholecystectomy History of hysterectomy S/P cervical spinal fusion Family History Mother Hypertension Social History Smoking Status: Former smoker Tobacco Type: Cigarettes Second Hand Exposure: No; Do You Dip or Chew Tobacco: No; Hx Alcohol Use: No Hx Substance Use: No Preferred Language: Slovak Communication Ability: Effective Transistor Tester Required: No Beliefs That Will Affect Care: None marital status: Single Current Living Situation: Spouse current occupational status: unemployed How many Children do You have: 0 Other Information That Helps Us Care for You: No Feels Safe at Home: Yes Safety Concerns: Feels Safe At This Time Assistive Devices: Glasses Review of Systems Review of Systems: as per hpi Physical Exam Constitutional: WD/WN, vitals as above Eyes: PERRL, conjunctivae normal, anicteric sclerae ENMT: external ear and nose normal, oropharynx normal Respiratory: normal respiratory effort, lungs clear to auscultation Cardiovascular: RRR, no murmur, no edema Gastrointestinal (Abdomen): normal bowel sounds, soft, nontender, no hepatosplenomegaly Musculoskeletal: no cyanosis or clubbing, extremities motor strength 5/5 Skin: no rashes, warm and dry Results & Data Results & Data Vital Signs (Past 12 Hours) Vital Signs Temp Pulse Resp BP Pulse Ox O2 Del Method 04/24/23 15:28 64 18 158/73 H 100 Room Air 04/24/23 14:24 66 16 145/74 H 99 Room Air 04/24/23 15:00 98 Room Air 04/24/23 15:00 64 18 99 Room Air 04/24/23 14:23 64 04/24/23 12:45 36.3 C L 70 16 157/79 H 98 Room Air Code Status & VTE Plan VTE Prophylaxis Plan VTE Prophylaxis will be ordered: Yes Supervising Physician Co-Signing Physician Notes I personally saw and examined the patient. I verified all rachel points and agree with Dr Nury PA-C with the following exceptions and/or additions: 63 year old female presents to the ER after recent discharge yesterday for episode of speech and staring arrest where she feels locked in. Additional episode this morning. Extensive workup previously. Na back down to 125 today. She notes having mainly a liquid diet and she doesn't feel like eating. Denies any alcohol use for the last year and alcohol level negative on admission. Has not hit her head since discharge. O/E HS RRR, no murmurs, Chest CTAB, Abdo SNT, no pronator drift, CN2-> 12 intact, no tremors A/P Episode of staring and speech arrest - monitor on telemetry for arrythmia per neurology recommendations. Neurology considering Keppra if having continued episodes so will defer starting this to neurology. No need for repeat imaging. Arrthrmia and psychological causes remain in differential. Acute hyponatremia - do not suspect SIADH given low urine osm/Na, improvement of sodium with NSS also does not fit this diagnosis, will get core rescuer consult as more suspicious of tea and toast diet. Consider NaCl PO if unable to keep sodium elevated. Resident Activity Tracking Resident Involvement: Resident Care Provided Care Provided: Adult Hospital Medicine
[2023-04-24] MEDS ORDERED: diazePAM 5 MG TABLET PO ONE (20:12)
[2023-04-24] MEDS ORDERED: ONDANSETRON INJ 2 MG/ML 2 ML VIAL IV PRN (21:17)
[2023-04-24] MEDS ORDERED: traZODone HCL 50 MG TAB PO PRN (21:17)
[2023-04-24] MEDS ORDERED: RIZATRIPTAN BENZOATE MLT 10 MG TAB PO PRN (21:17)
[2023-04-24 21:43] LABS: BUN Creatinine Ratio 10.8 (10-20); Calcium 8.5 mg/dl (8.6-10.3); Creatinine Clr Calc Pharmacy 88.7 ml/min; Est GFR (African American) 108.7; Est GFR (Non-African American) 93.8; Potassium 4.1 mmol/L (3.5-5.1)
[2023-04-24] MEDS: busPIRone 15 MG TAB PO SCH (22:12)
[2023-04-24] MEDS: ENOXAPARIN INJ 40 MG/0.4 ML SYR SQ SCH (22:12)
--- NOTE | 2023-04-25 07:29 | Billing Data ---
Date of Service April 24, 2023 Coding Level of Care Code 03611 INT INP/OBS CARE
[2023-04-25] MEDS: METOPROLOL SUCC 25MG EXT REL TAB PO SCH (08:38)
[2023-04-25] MEDS: busPIRone 15 MG TAB PO SCH ×2 (08:38→20:25)
[2023-04-25] MEDS: PANTOprazole 40 MG TAB PO SCH (08:38)
[2023-04-25] MEDS: MELOXICAM 7.5 MG TAB PO SCH (08:39)
[2023-04-25] MEDS ORDERED: diazePAM 5 MG TABLET PO PRN (08:50)
[2023-04-25] MEDS: diazePAM 5 MG TABLET PO PRN (09:05)
--- NOTE | 2023-04-25 11:09 | Neurology Consultation ---
Date of Consultation April 25, 2023 Assessment & Plan (1) Episodes of speech arrest: (2) Episodes of staring: (3) Seizure disorder: Plan 63-year-old female, repeat admission for episode of speech and movement arrest in the context of a history of posttraumatic seizures. Given that she has now had another very similar episode potentially consistent with partial aware seizure, I would recommend starting levetiracetam 500 mg twice daily. A report will need to be followed with [facility]. I would still recommend completion of 30-day mobile cardiac outpatient telemetry. Furthermore, given that this patient had a normal routine EEG recently, I would recommend outpatient con sultation with an epilepsy specialist at [facility]. History of Present Illness Reason for Consultation: recurrent sxs, start Keppra? Requesting Physician: Anish Queen Attending Physician: Oseas Ruano MD History of Present Illness The patient is a 63-year-old female who was just discharged from the [facility] yesterday, on April 23, during which time she was evaluated for an episode of speech and movement arrest, without collapse or loss of consciousness. I had seen her on April 21 for consultation at that time and noted her history of traumatic brain injury, right convexity subdural hematoma requiring craniotomy in 2010, with subsequent development of seizure disorder, further confounded by alcohol use disorder, reportedly in remission. She had been seizure-free for several years without antiseizure medication, had previously discontinued her Keppra. An EEG completed April 22 was normal. A brain MRI completed April 21 revealed minimal ischemic microangiopathy and postoperative changes involving the right frontotemporal region. A CTA of the head and neck was unremarkable as well. Her symptoms were reportedly different from her previous seizures. Given that her symptoms at that time are of undetermined etiology, although partial aware seizure not excluded, other possibilities were considered as well including transient cerebral hypoperfusion due to cardiac arrhythmia or hypotension. I did not recommend starting an antiseizure medication at that time but had recommended 30-day mobile cardiac outpatient telemetry as well as consideration of tilt table testing. The patient presented to the emergency department yesterday afternoon, after another very similar episode of movement and speech arrest, without collapse or associated convulsive activity. The patient does not have any specific neurologic complaint at this time, no headache, vision change, weakness or sensory loss. Allergies Allergy/AdvReac Type Severity Reaction Status Date / Time gabapentin AdvReac Severe Confusion Verified 04/24/23 17:04 acetaminophen [From Tylenol] AdvReac Unknown CONTRAINDICATED Verified 04/24/23 17:04 DUE TO LIVER ISSUES ibuprofen AdvReac Unknown CONTRAINDICATED Verified 04/24/23 17:04 DUE TO LIVER ISSUES Home Medications Medication Instructions Recorded Confirmed Type metoprolol succinate 25 mg 25 mg PO DAILY 11/21/21 04/24/23 History tablet,extended release 24 hr rizatriptan 10 mg disintegrating 10 mg PO DIRECTED PRN Migraine 11/21/21 04/24/23 History tablet Headache meloxicam 15 mg tablet 15 mg PO DAILY #30 tabs 03/16/22 04/24/23 Rx vortioxetine 10 mg tablet 10 mg PO DAILY 06/03/22 04/24/23 History (Trintellix) calcium carbonate 600 mg-vitamin 1 cap PO DAILY 08/02/22 04/24/23 History D3 12.5 mcg (500 unit) capsule (Calcium 600 with Vitamin D3) alendronate 35 mg tablet 35 mg PO WK 04/20/23 04/24/23 History brexpiprazole 0.5 mg tablet 0.5 mg PO QAM 04/20/23 04/24/23 History (Rexulti) buspirone 30 mg tablet 30 mg PO BID 04/20/23 04/24/23 History diazepam 5 mg tablet 5 mg PO DAILY PRN Anxiety 04/20/23 04/24/23 History multivitamin-ferrous 1 tab PO DAILY 04/20/23 04/24/23 History fumarate-folic acid 18 mg-400 mcg tablet (Centrum Women) omeprazole 40 mg capsule,delayed 40 mg PO DAILY 04/20/23 04/24/23 History release trazodone 150 mg tablet 75 - 150 mg PO HS PRN Sleep 04/20/23 04/24/23 History Patient History Medical History (Updated 04/24/23 @ 19:16 by Reyna Queen MD) Alcohol intoxication Alcoholism Chronic hyponatremia Chronic pancreatitis COPD (chronic obstructive pulmonary disease) Displacement 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 (08/22/11) History of craniotomy Due to subdural hematoma from fall History of tobacco abuse Nonischemic cardiomyopathy Positive ROSANGELA (antinuclear antibody) Seizure disorder (05/16/12) Severe pulmonary arterial systolic hypertension Thrombocytopenia Uterine leiomyoma (07/18/11) Surgical History History of arthroscopic procedure on shoulder History of onel hole surgery History of carpal tunnel surgery History of cholecystectomy History of hysterectomy S/P cervical spinal fusion Family History Mother Hypertension Social History Smoking Status: Former smoker Tobacco Type: Cigarettes Second Hand Exposure: No; Do You Dip or Chew Tobacco: No; Hx Alcohol Use: No Hx Substance Use: No Preferred Language: Chadian Communication Ability: Effective Industrial Organizational Psychologist Required: No Beliefs That Will Affect Care: None marital status: Single Current Living Situation: Spouse current occupational status: unemployed How many Children do You have: 0 Other Information That Helps Us Care for You: No Feels Safe at Home: Yes Safety Concerns: Feels Safe At This Time Assistive Devices: Glasses Review of Systems Constitutional: no fever and no chills Eyes: no blind spots and no diplopia Ear, Nose, Mouth, Throat: no hearing loss Respiratory: no cough and no dyspnea Cardiovascular: no chest pain and no palpitations Gastrointestinal: no nausea and no vomiting Genitourinary: no dysuria Musculoskeletal: no neck pain and no myalgia Integumentary: no rash and no lesions Neurologic: no gait abnormality, no localized weakness, no loss of sensation, no tremor(s), no headache(s), no confusion and no memory loss Psychiatric: no depression and no anxiety Hematologic / Lymphatic: no easy bleeding and no easy bruising Exam (Neuro) Constitutional: well developed and well nourished; no acute distress Eyes: normal visual gimenez by confrontation, PERRL and EOM intact bilaterally Neurologic: Oriented to:: Person, Place and Time Memory: Short Term Intact and Remote Intact Attention: Span Intact and Concentration Intact Speech Fluency: negative Dysarthria or Dysfluency Fund of Knowledge: Current Events, Past History and Vocabulary Cranial Nerves: Normal II, III, IV, , V, VII, VIII, IX, X, XI and XII Motor Strength: Normal Lower Extremities and Normal Upper Extremities Motor Tone: Normal Lower Extremities and Normal Upper Extremities Muscle Bulk/Involuntary Movements: No Involuntary Movements; negative Muscle Atrophy Sensation: Light Touch Intact, Pain/Temperature Intact and Proprioception Intact Coordination: Normal; negative Dysdiadochokinesia, Finger-Nose Abnormal or Heel-Rouse Abnormal Deep Tendon Reflexes: Rt Triceps: 2+, Lt Triceps: 2+, Rt Biceps: 2+, Lt Biceps: 2+, Rt Brachioradialis: 2+, Lt Brachioradialis: 2+, Rt Patellar: 2+, Lt Patellar: 2+, Rt Ankle: 1+ and Lt Ankle: 1+ Special Tests: negative Babinski Present Details: Gait not tested Results & Data Vital Signs (Past 12 Hours) Vital Signs Temp Pulse Pulse Resp BP Pulse Ox O2 Del Method 04/25/23 08:00 Room Air 04/25/23 07:51 36.5 C 80 16 159/86 H 99 Room Air 04/25/23 07:34 59 L 04/25/23 03:00 36.3 C L 81 20 166/99 H 98 Room Air 04/25/23 00:09 72 04/24/23 23:40 Room Air Laboratory Results WBC 3.17, hemoglobin 13.0, hematocrit 35.3, platelet count 111, sodium 132, potassium 4.1, BUN 7, creatinine 0.65, glucose 101, calcium 8.5, magnesium 1.7, AST 61, ALT 77, ammonia 49.0, high-sensitivity troponin less than 2.3, TSH 1.616, ethyl alcohol level less than 10.0 Diagnostic Findings Previous, recent, MRI of the brain and CTA of the head and neck reviewed and are as described in the HPI. The CTA of the neck does reveal an incidental 40% stenosis within the proximal right internal carotid artery due to calcified plaque, no other vascular lesions. Electrocardiogram completed yesterday revealed a normal sinus rhythm. An EEG completed April 22, 2023 was negative for epileptiform abnormalities. Coding Level of Care Code 41159 INT INP/OBS CARE MIN Diagnoses Episodes of speech arrest R47.89 Episodes of staring R40.4 Seizure disorder G40.909
[2023-04-25] MEDS ORDERED: LOPERAMIDE HCL 2 MG CAP PO PRN (11:29)
[2023-04-25] MEDS: levETIRAcetam 500 MG TAB PO SCH ×2 (11:36→20:25)
--- NOTE | 2023-04-25 12:21 | Hospitalist Progress Note ---
Date of Service April 25, 2023 Assessment & Plan (1) Seizure disorder: Plan: Appreciate neurology consultation and recommendations. She has been started on Keppra. She is upset that she will not be allowed to drive. She had recent EEG and MRI scan which will not be repeated. Hopefully home tomorrow, April 26 (2) Acute hyponatremia: Plan: Mild with slightly low serum osmolarity. Vortioxetine may be causing this. She was cautioned to avoid excessive fluid intake (3) History of craniotomy: Plan: Past history of subdural hematoma treated with craniotomy (4) COPD (chronic obstructive pulmonary disease): Plan: Stable. Continue current medical management (5) Depression: Plan: Aggravated by current situation and knowing that she cannot drive. Continue current medical management Plan Hopeful discharge to home tomorrowApril 26 Admission and Anticipated Discharge Date Admission Date: April 24, 2023 Subjective Alert and stable. 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 Keppra has been started. Appreciate neurology consultation and recommendations. She will probably be discharged home tomorrow, April 26, and complete the outpatient juvenile correctional officer. Review of Systems Review of Systems: Constitutional-no fever or chills ENT-no blurred vision, no double vision, no epistaxis, no sore throat Respiratory-no cough, no wheezing, no shortness of breath Cardiac-no palpitations, no chest pain, no syncope GI-no nausea, vomiting, diarrhea, melena, hematochezia -no urinary retention, no urinary incontinence, no dysuria, no hematuria Musculoskeletal-no joint pain, no muscle tenderness Skin-no bruising, no rashes, no pruritus Neuro-no isolated weakness, no paresthesia, no weakness Psych-upset about her current situation and not being able to drive Physical Exam Physical Exam: General-alert and oriented x3, no fevers, no chills HEENT-head atraumatic and normocephalic, pupils equal and reactive to light, extraocular muscles intact Neck-no lymphadenopathy or thyromegaly, trachea midline Chest-clear to auscultation percussion. No rales wheezing or rhonchi Cardiac-regular rate and rhythm, normal S1 and S2 Abdomen-normal bowel sounds, nontender, no hepatosplenomegaly Extremities-no cyanosis, clubbing, or edema Neuro-cranial nerves II through XII intact, motor and sensory function within normal limits, strength symmetrical , no focal deficits Psych-upset about not being able to drive Results & Data Results & Data Vital Signs (Past 12 Hours) Vital Signs Temp Pulse Pulse Resp BP Pulse Ox O2 Del Method 04/25/23 11:28 36.8 C 69 16 167/81 H 95 Room Air 04/25/23 08:00 Room Air 04/25/23 07:51 36.5 C 80 16 159/86 H 99 Room Air 04/25/23 07:34 59 L 04/25/23 03:00 36.3 C L 81 20 166/99 H 98 Room Air Laboratory Results 04/24/23 14:11 04/24/23 20:58 PG Care Time/CCT Total # of Minutes Spent Total Time Spent with Patient: Total time spent is greater than 50% in coordination of care (as documented) at patient's floor/unit and/or counseling patient: Coding Level of Care Code 41907 SUB INP/OBS CARE 3/50MIN Diagnoses Seizure disorder G40.909 Acute hyponatremia E87.1 History of craniotomy Z98.890 COPD (chronic obstructive pulmonary disease) J44.9 Depression F32.A
[2023-04-25] MEDS: VORTIOXETINE HYDROBROMIDE 20 MG PO SCH (14:28)
[2023-04-25] MEDS ORDERED: VORTIOXETINE HYDROBROMIDE 20 MG PO SCH (14:30)
--- NOTE | 2023-04-25 17:42 | Electrocardiogram Report ---
Test Reason : Blood Pressure : / mmHG Vent. Rate : 065 BPM Atrial Rate : 065 BPM P-R Int : 188 ms QRS Dur : 084 ms QT Int : 440 ms P-R-T Axes : 029 -05 039 degrees QTc Int : 457 ms Normal sinus rhythm When compared with ECG of 20-APR-2023 16:15, Nonspecific T wave abnormality now evident in Lateral leads Confirmed by Rafael Pantoja ([id number]) on 04/25/2023 5:42:19 PM Referred By: REFERRED SELF Confirmed By:Alec Pantoja
[2023-04-25] MEDS: ENOXAPARIN INJ 40 MG/0.4 ML SYR SQ SCH (20:25)
[2023-04-25] MEDS ORDERED: BREXPIPRAZOLE 0.5 MG TAB PO SCH (21:00)
[2023-04-25] MEDS ORDERED: diphenhydrAMINE Capsule 25 MG CAP PO ONE (21:51)
--- NOTE | 2023-04-25 21:57 | Communication Note ---
Date of Service: April 25, 2023 Received notification that patient was complaining of new onset blurry vision after receiving keppra. On exam patient seated in bed comfortably on room air, states she 'doesn't feel right'. Patient states the room is spinning slightly, she has trouble focusing on objects, she does have a headache however that was present throughout the day. She denies nausea vomiting SOB pain swelling, describes some tingling in extremities. Neuro exam CN 2-12 intact b/l able to move all extremities sensation intact throughout. Pulse 70 O2 sat 98% room air BP 158/85 glucose 80's. Low suspicion for ongoing seizure or stroke at this time. Discussed with patient while these symptoms are not typical allergy reactions, could try some benadryl for her symptoms at this time, patient agreed. Will hold keppra at this time, patient to discuss with hospitalist and neurology in morning.
[2023-04-25] MEDS: ACETAMINOPHEN 325 MG TAB PO PRN (22:06)
[2023-04-26] MEDS: ACETAMINOPHEN 325 MG TAB PO PRN (03:54)
[2023-04-26] MEDS: MELOXICAM 7.5 MG TAB PO SCH (07:45)
[2023-04-26] MEDS: METOPROLOL SUCC 25MG EXT REL TAB PO SCH (07:45)
[2023-04-26] MEDS: busPIRone 15 MG TAB PO SCH (07:46)
[2023-04-26] MEDS: VORTIOXETINE HYDROBROMIDE 20 MG PO SCH (07:46)
[2023-04-26] MEDS: PANTOprazole 40 MG TAB PO SCH (07:46)
[2023-04-26] MEDS: diazePAM 5 MG TABLET PO PRN (07:49)
--- NOTE | 2023-04-26 07:53 | Discharge Summary ---
Date of Service April 26, 2023 Admission HPI Per Admitting Provider Patient is a 63-year-old female PMH of nonischemic cardiomyopathy, COPD, history alcohol abuse, seizure disorder w/o recent one, cirrhosis (hepatitis C) history of craniotomy due to subdural hematoma (2010) presenting with an episode of "being frozen."She describe the episodes as unable to speak or move for less than a minute, headaches and palpitations. After, she naga slower than usual. She was admitted 4 days ago for the same reasons. Additionally she refers some watery diarrhea and right abdominal pain with bowel movements. She denied any numbness, tinglings, SOB, chest pain, nausea or vomiting. Patient was admitted here for the same symptoms, was discharge yesterday. Negative head images on the admission. She was discharge with a 30 day even monitor. She was found with hyponatremia suspected SIADH ins the setting of starting a new antipsychotic medication (Bexiprazole), she does refers polydipsia. Neurology was consulted no antiseizure medications at this point, episode could be related to hyponatremia, cardiac arrhythmia. Once these other issues have been excluded, and if she continues to have recurrent episodes, she may be considered for Anti- epileptic drug like Keppra in future. Principal Diagnosis Alert and oriented this morning. She may have had some side effect last night from initiation of Keppra which was placed on hold but has been restarted this morning. She needs to take the medication and let her body get used to it. This may have been a transient vertiginous episode that hopefully will not recur. She is medically stable for discharge home. Keppra prescription will be sent [facility]. All other medications remain the same. Discharge Exam General-alert and oriented x3, no fevers, no chills HEENT-head atraumatic and normocephalic, pupils equal and reactive to light, extraocular muscles intact Neck-no lymphadenopathy or thyromegaly, trachea midline Chest-clear to auscultation percussion. No rales wheezing or rhonchi Cardiac-regular rate and rhythm, normal S1 and S2 Abdomen-normal bowel sounds, nontender, no hepatosplenomegaly Extremities-no cyanosis, clubbing, or edema Neuro-cranial nerves II through XII intact, motor and sensory function within normal limits, strength symmetrical , no focal deficits Psych-upset about not being able to drive Discharge Data Allergies Allergy/AdvReac Type Severity Reaction Status Date / Time gabapentin AdvReac Severe Confusion Verified 04/24/23 17:04 acetaminophen [From Tylenol] AdvReac Unknown CONTRAINDICATED Verified 04/24/23 17:04 DUE TO LIVER ISSUES ibuprofen AdvReac Unknown CONTRAINDICATED Verified 04/24/23 17:04 DUE TO LIVER ISSUES Consultations 04/24/23 17:08 ED Decision to Admit Stat 04/24/23 19:51 Consult Neurology Routine Hospital Course (1) Seizure disorder: Appreciate neurology consultation and recommendations. She has been started on Keppra. She is upset that she will not be allowed to drive. She had recent EEG and MRI scan which will not be repeated. (2) Acute hyponatremia: Mild with slightly low serum osmolarity on admission. Vortioxetine may be causing this. She was cautioned to avoid excessive fluid intake (3) History of craniotomy: Past history of subdural hematoma treated with craniotomy (4) COPD (chronic obstructive pulmonary disease): Stable. Continue current medical management (5) Depression: Aggravated by current situation and knowing that she cannot drive. Continue current medical management Plan Home today, April 26, with addition of Keppra Total Time Total Time Spent Total Time Spent (In Minutes): 45-minute Discharge Plan Discharge Items Patient Disposition: Home - Self-Care Reason For Visit: HYPONATREMIA Discharge Diagnosis: Exacerbation of seizure disorder with what appeared to be absence seizure's, mild hyponatremia Activity: Per Instructions section Activity Comment: No driving or operating any machinery Non-emergency contact: Primary Care Provider and Neurologist Call non-emergency contact if: you have any medication questions and your symptoms worsen Follow-up/Referrals: Swetha Newberry DO [Primary Care Provider] - Diet: Regular Addtl Attending Provider Instructions: Keppra has been added. All other medications remain the same Pending Studies at Discharge: No Stand-Alone Forms: My [employer], Smoking Cessation Medications and DC Order Prescriptions: New levetiracetam [Keppra] 500 mg Tablet 500 mg PO BID Qty: 60 0RF Continued calcium carbonate-vitamin D3 [Calcium 600 with Vitamin D3] 600 mg-12.5 mcg (500 unit) capsule 1 cap PO DAILY Trintellix 10 mg tablet 10 mg PO DAILY triamcinolone acetonide [Kenalog] 40 mg/mL suspension 40 mg intra-articular ONCE Qty: 1 0RF metoprolol succinate 25 mg tablet extended release 24 hr 25 mg PO DAILY rizatriptan 10 mg tablet,disintegrating 10 mg PO DIRECTED MDD 3 DOSES/24 HOURS PRN (Reason: Migraine Headache) Rx Instructions: TAKE 10 MG AT ONSET OF YEPEZ, THEN REPEAT IN 2 HOURS IF NEEDED. MAX 3 DOSES/24 HOURS. meloxicam 15 mg tablet 15 mg PO DAILY Qty: 30 0RF omeprazole 40 mg capsule,delayed release(DR/EC) 40 mg PO DAILY alendronate 35 mg tablet 35 mg PO WK trazodone 150 mg tablet 75 - 150 mg PO HS PRN (Reason: Sleep) buspirone 30 mg tablet 30 mg PO BID diazepam 5 mg tablet 5 mg PO DAILY PRN (Reason: Anxiety) Centrum Women 18-400 mg-mcg Tablet 1 tab PO DAILY Rexulti 0.5 mg tablet 0.5 mg PO QAM Discharge Orders: Discharge Order (Routine); Ordered 04/26/23 Ordered By: Oseas Ruano Admission Data Admit Date/Time: 04/24/23 18:54 Attending Provider: Oseas Ruano Admit Provider: Reyna Echeverria Primary Care Provider: Swetha Newberry Other Providers: Jose Prieto ; Bryn Graham Coding Level of Care Code 36985 INP/OBS DISCH >30 MIN Diagnoses Seizure disorder G40.909 Acute hyponatremia E87.1 History of craniotomy Z98.890 COPD (chronic obstructive pulmonary disease) J44.9 Depression F32.A
[2023-04-26] MEDS: levETIRAcetam 500 MG TAB PO SCH (08:26)
[2023-04-26 08:46] LABS: BUN Creatinine Ratio 10.1 (10-20); Calcium 9.2 mg/dl (8.6-10.3); Creatinine Clr Calc Pharmacy 83.5 ml/min; Est GFR (African American) 106.6 ml/min; Potassium 4.1 mmol/L (3.5-5.1)
== END 2023-04-26 09:15 | disposition home or self-care (01) | DRG 101 ==
LOC: ED 12:38 → 3N 18:54 → SUATTDRO 18:54 → 3N 20:50 → 2N 23:35

== ENCOUNTER 2024-03-25 19:14 | Inpatient (IN) ==
[2024-03-25 19:48] LABS: Basophils # (auto) 0.02 K/uL (0.00-0.20); Basophils % (auto) 0.5 %; Eosinophils # (auto) 0.12 K/uL (0.00-0.50); Eosinophils % (auto) 2.9 %; Hemoglobin 11.7 g/dl (12.0-16.0); Immature Granulocytes # (auto) 0.01 K/uL (0.01-0.20); Immature Granulocytes % (auto) 0.2 %; Lymphocytes # (auto) 0.92 K/uL (1.20-3.40); Lymphocytes % (auto) 21.9 %; Mean Corpuscular Hemoglobin 33.1 pg (25.0-34.0); Mean Corpuscular Hgb Conc 34.4 g/dL (32.0-36.0); Mean Corpuscular Volume 96.3 fL (80.0-100.0); Monocytes # (auto) 0.52 K/uL (0.11-0.59); Monocytes % (auto) 12.4 %; Neutrophils # (auto) 2.62 K/uL (1.40-6.50); Neutrophils % (auto) 62.1 %; Platelet Count 102 K/uL (130-400); RDW Coefficient of Variation 12.8 % (11.5-14.5); RDW Standard Deviation 44.9 fL (36.4-46.3); Red Blood Count 3.53 M/uL (4.20-5.40); White Blood Count 4.21 K/ul (4.8-10.8)
[2024-03-25 20:04] LABS: Albumin Globulin Ratio 1.7 (0.9-2); BUN Creatinine Ratio 7.9 (10-20); Bilirubin,Total 0.6 mg/dl (0.2-1.0); Calcium 8.8 mg/dl (8.6-10.3); Creatinine Clr Calc Pharmacy 75.7 ml/min; Est GFR (African American) 95.4 ml/min; Est GFR (Non-African American) 82.3 ml/min; Globulin 2.3 gm/dl (2.5-4.0); Potassium 4.7 mmol/L (3.5-5.1); Total Protein 6.3 gm/dl (6.0-8.3)
--- NOTE | 2024-03-25 20:17 | Emergency Department Note ---
Impression & Plan Generalized weakness, Hyponatremia, Spinal stenosis ED Provider Note NAME: JUHI WHITFIELD AGE: 64 SEX: Female INFORMANT: Patient ED PROVIDER(S): Richard Parrish MD CHIEF COMPLAINT: Weakness PLAN: Disposition: Admitted Outpatient prescription management: none Referral: None MEDICAL DECISION MAKING: Patient presented because of weakness. She had no saddle anesthesia or bowel or bladder incontinence. Blood work was obtained and she had evidence of hyponatremia. This appears to be a chronic issue for her. Given the falls she underwent head CT imaging and this was negative. She had complained of back pain in the lumbar region. Patient underwent CT imaging of the lumbar spine and was found to have significant degenerative changes and spinal stenosis. MR imaging was recommended. MR imaging was ordered. Patient did request pain medication and did very well with a dose of IV Dilaudid. Patient will require further management in the hospital given the generalized weakness that has progressed and the abnormal CT finding. Consultation was made with Dr. Timmy Bruno of the [facility] service. Patient was evaluated in the ER for further management. Care/management discussed with: field marketing manager Level of care consideration(s): After review of the information above and other included data, I feel the patient requires escalation of care to admission Triage Nursing notes: reviewed and agree them. Vital Signs: reviewed and remarkable for no significant abnormalities Additional History obtained from: none Chronic Medical/Social Conditions affecting care: History of cervical fusion, COPD, hyponatremia Prior/ Outside/ External records reviewed: none Differential Diagnosis: Infection, dehydration, metabolic abnormality, hypo/hyperglycemia, electrolyte disturbance, anemia, hypoxia, cardiac sources, intracerebral event, toxicologic, neurologic, as well as other pathologies. Diagnostics, independently interpreted by me: ECG: Twelve-lead ECG was normal sinus rhythm at 63 bpm. Left axis deviation. Cardiac Monitoring: Cardiac monitoring ordered by me: The patient was placed on continuous cardiac monitoring and observed. It revealed a normal sinus rhythm at 65 beats per minute without ectopy or evidence of dysrhythmia. Medical decision rules: none Imaging studies: Head CT: A noncontrast CT scan of the head was performed and was negative for tumor, fracture, intracranial hemorrhage, or other acute pathology. Chest x-ray. Findings: A chest x-ray was performed and revealed no pneumothorax, effusion, infiltrate, pulmonary edema, free air under the diaphragm, or wide mediastinum. Impression: No acute disease. HPI: 64 year old Female arrives for evaluation of generalized weakness. This started about 8 months ago and is worsening over last two weeks. The patient also notes the following associated symptoms, occasional falls, occasional back pain. The patient has tried tylenol for relieving factors. Current pain is rated as 8/10. PCP saw patient and referred to nephro, neuro, and rheum without specific diagnosis. hx of TBI, hyponatremia. Pt denies LOC, headache, fevers, chills, diaphoresis, visual changes, neck pain, chest pain, breathing difficulties, nausea, vomiting, abdominal pain, melena, hematochezia, urinary symptoms, numbness, lymphadenopathy, rash, or other complaints. . PAST MEDICAL HISTORY: See Below, hyponatremia PAST SURGICAL HISTORY: See Below, SOCIAL HISTORY: See Below, former smoker HOME MEDICATIONS: See Below ALLERGIES: See Below VITALS: See Below PHYSICAL EXAMINATION: GENERAL: Awake, alert, well-appearing, in no distress HENT: Normocephalic, atraumatic. Oropharynx unremarkable. EYES: Normal conjunctiva. Sclera non-icteric. PERRL, EOMI NECK: Inspection normal. Non-tender. Supple. No nuchal rigidity. FROM. No masses. RESPIRATORY: Clear to auscultation. No wheezes. No rales. Normal respiratory effort. CARDIAC: Normal rate. Normal rhythm. No murmurs. No rubs. Extremities warm and well perfused. Pulses equal. No JVD. GI: Soft, non-distended. No tenderness to palpation. No rebound or guarding. No masses. RECTAL: Deferred. MUSCULOSKELETAL: Atraumatic except bruising in the left forearm without bony TTP. Chest examination reveals no tenderness. The back is symmetrical on inspection without obvious abnormality. There is no CVA tenderness to palpation. No joint edema. LOWER EXTREMITIES: Calves are equal size bilaterally and non-tender. No edema. No discoloration. NEURO: Normal sensorium. No sensory deficits noted. Generalized weakness 3.5/5 bilateral u/l ext. CN 2-12 intact. no drift. SKIN: No rash or jaundice noted. PROCEDURES: none CRITICAL CARE: none OBSERVATION NOTE: none Past Med/Surg History Problem List (Updated 03/26/24 @ 02:58 by Richard Parrish MD) Spinal stenosis (Acute) Hyponatremia (Acute) Generalized weakness (Acute) Incontinence (Chronic) Myofascial pain Dermatochalasis of both upper eyelids 10/28/23 Shoulder pain Status post arthroscopy of left knee Knee pain, left Encounter for pre-operative examination Episodes of speech arrest 04/21/23 Episodes of staring 04/21/23 Lumbar facet joint syndrome Lumbar spondylosis Thrombocytopenia Spinal stenosis Positive ROSANGELA (antinuclear antibody) Scalp hematoma Gastritis 01/30/22 Liver cirrhosis Elevated LFTs Ambulatory dysfunction (Acute) Frequent falls (Acute) Depression Chronic pain disorder Hypocalcemia Anemia Leukopenia Encephalopathy Metabolic acidosis (Acute) Hypomagnesemia (Acute) Chronic hyponatremia S/P cervical spinal fusion ROM WNL History of onel hole surgery History of arthroscopic procedure on shoulder Rt History of carpal tunnel surgery Rt COPD (chronic obstructive pulmonary disease) pt denies Alcoholism (Acute) Chronic pancreatitis pt denies Severe pulmonary arterial systolic hypertension Nonischemic cardiomyopathy Hyponatremia (Acute) Uterine leiomyoma (Chronic 07/18/11) 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 denies History of alcoholism (2021) quit 2021 (drank 6 beers/day) Hx of tinnitus Hx of migraines Pulmonary hypertension Echo 09/2019: "Moderate pulmonary hypertension"/Estimated PASP 51mmhg, assuming RAP of 3mmhg Seasonal allergies Thrombocytopenia Chronic Chronic hyponatremia Non-ischemic cardiomyopathy EF 35-40% in 2018, 60-65% in 2020 Hx of chronic pancreatitis Per records, patient denies History of anemia Chronic pain disorder back Depression Positive ROSANGELA (antinuclear antibody) Spinal stenosis of lumbar region Stress incontinence Chronic cough Follows with [facility] pulm - pt. reports due to pollen and states has nearly resolved in recent months Hx of hepatitis C (1979) Late 1980s, treated HTN (hypertension) controlled, stable per pt Cirrhosis lost to f/u with [facility] History of subdural hematoma (2010) 2010 Osteoarthritis GERD (gastroesophageal reflux disease) controlled, stable per pt History of seizure (2010) Following subdural hematoma 2010 from fall No issues since per patient-last episode 1 year ago Follows with [facility] neurology Surgical History Hx of blepharoplasty (01/2024) History of craniotomy (2010) Due to subdural hematoma from fall Hx of hysterectomy Hx of cholecystectomy History of carpal tunnel release right Hx of arthroscopy of shoulder right Hx of arthroscopy of left knee S/P cervical spinal fusion unsure of level, full ROM History of onel hole surgery (2010) lead to craniotomy History of esophagogastroduodenoscopy (EGD) History of colonoscopy Family History Mother Hypertension Other No family history of adverse response to anesthesia Social History Smoking Status: Former smoker Tobacco Type: Cigarettes Age Started Using Tobacco: 18; Age Quit Using Tobacco: 30; packs per day: 1; Second Hand Exposure: No; Do You Dip or Chew Tobacco: No; Hx Alcohol Use: Yes Alcohol type: beer Alcohol Intake Frequency Comment: 5 beers/day Hx Substance Use: No Preferred Language: Liberian Communication Ability: Effective 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: No Beliefs That Will Affect Care: None marital status: Single Current Living Situation: Spouse current occupational status: unemployed How many Children do You have: 0 Feels Safe at Home: Yes Assistive Devices: Glasses and Hearing Aid - Bilateral Allergies Allergies Allergy/AdvReac Type Severity Reaction Status Date / Time aripiprazole AdvReac Severe seizure Verified 03/26/24 02:09 activity per [facility] EMR gabapentin AdvReac Severe Confusion Verified 03/26/24 02:09 acetaminophen AdvReac Unknown per [facility] Verified 03/26/24 02:09 EMR, to be avoided given cirrhosis ibuprofen AdvReac Unknown per [facility] Verified 03/26/24 02:09 EMR to be avoided given cirrhosis Home Meds Home Medications Medication Instructions Recorded Confirmed metoprolol succinate 25 mg 25 mg PO QAM 11/21/21 03/26/24 tablet,extended release 24 hr rizatriptan 10 mg disintegrating 10 mg PO DIRECTED PRN Migraine 11/21/21 03/26/24 tablet Headache calcium carbonate 600 mg-vitamin 1 cap PO QAM 08/02/22 03/26/24 D3 12.5 mcg (500 unit) capsule (Calcium 600 with Vitamin D3) alendronate 35 mg tablet 35 mg PO WK 04/20/23 03/26/24 buspirone 30 mg tablet 30 mg PO BID 04/20/23 03/26/24 diazepam 5 mg tablet 5 mg PO DAILY PRN Anxiety 04/20/23 03/26/24 multivitamin-ferrous 1 tab PO QAM 04/20/23 03/26/24 fumarate-folic acid 18 mg-400 mcg tablet (Centrum Women) omeprazole 40 mg capsule,delayed 40 mg PO DAILY PRN gerd 04/20/23 03/26/24 release trazodone 150 mg tablet 75 - 150 mg PO HS PRN Sleep 04/20/23 03/26/24 losartan 25 mg tablet 25 mg PO BID 07/31/23 03/26/24 nystatin 100,000 unit/gram topical 1 applic topical DAILY PRN Skin 07/31/23 03/26/24 cream Irritation vortioxetine 20 mg tablet 20 mg PO QAM 07/31/23 03/26/24 (Trintellix) solifenacin 5 mg tablet (Vesicare) 5 mg PO QAM 03/01/24 03/26/24 fluticasone propionate 50 1 spray intranasal BID PRN 03/26/24 03/26/24 mcg/actuation nasal Congestion spray,suspension Previous Rx's Medication Instructions Recorded chlorpheniramine maleate 4 mg 4 mg PO Q12H 30 days #60 tabs 12/15/23 tablet (Allergy Relief (chlorpheniramine)) pseudoephedrine HCl 120 mg 120 mg PO BID 30 days #60 tabs 12/15/23 tablet,extended release (Sudafed 12 Hour) clotrimazole 2 % vaginal cream 1 appful topical ONCE #21 grams 01/02/24 Results & Data (ED) Vital Signs Vital Signs - 24 hr 03/25/24 19:26 03/25/24 19:27 03/25/24 19:30 Pulse Rate 16 L 63 64 Pulse Rate [Left Radial] Pulse Rate from SpO2 Sensor Pulse Rhythm Regular Pulse Rhythm [Left Radial] Pulse Strength Normal Pulse Strength [Left Radial] Respiratory Rate 16 19 17 Respiratory Effort / Characteristics Non-Labored Spontaneous Respiratory Depth Normal Respiratory Pattern Regular Blood Pressure 152/85 H Blood Pressure [Right Arm] Blood Pressure Mean 107 Blood Pressure Mean [Right Arm] Blood Pressure Position Lying Blood Pressure Position [Right Arm] Pulse Oximetry 96 Oxygen Delivery Method Room Air Sepsis Recent Fever Within 48 Hours No Sepsis New/Unexplained Change in Mental Status No Sepsis Action Taken by Nursing No Action Required 03/25/24 19:32 03/25/24 19:39 03/25/24 19:57 Pulse Rate 62 64 Pulse Rate [Left Radial] 64 Pulse Rate from SpO2 Sensor 63 Pulse Rhythm Pulse Rhythm [Left Radial] Regular Pulse Strength Pulse Strength [Left Radial] Normal Respiratory Rate 16 14 Respiratory Effort / Characteristics Non-Labored Spontaneous Respiratory Depth Normal Respiratory Pattern Regular Blood Pressure Blood Pressure [Right Arm] 152/85 H Blood Pressure Mean Blood Pressure Mean [Right Arm] 107 Blood Pressure Position Blood Pressure Position [Right Arm] Pulse Oximetry 98 96 Oxygen Delivery Method Room Air Sepsis Recent Fever Within 48 Hours Sepsis New/Unexplained Change in Mental Status Sepsis Action Taken by Nursing 03/25/24 20:00 03/25/24 20:01 03/25/24 20:03 Pulse Rate 63 Pulse Rate [Left Radial] 62 Pulse Rate from SpO2 Sensor 63 Pulse Rhythm Pulse Rhythm [Left Radial] Regular Pulse Strength Pulse Strength [Left Radial] Normal Respiratory Rate 17 13 Respiratory Effort / Characteristics Non-Labored Spontaneous Respiratory Depth Normal Respiratory Pattern Regular Blood Pressure 146/107 H Blood Pressure [Right Arm] 146/107 H Blood Pressure Mean 121 Blood Pressure Mean [Right Arm] 120 Blood Pressure Position Blood Pressure Position [Right Arm] Lying Pulse Oximetry 97 99 Oxygen Delivery Method Room Air Sepsis Recent Fever Within 48 Hours Sepsis New/Unexplained Change in Mental Status Sepsis Action Taken by Nursing 03/25/24 20:33 03/25/24 21:09 03/25/24 21:19 Pulse Rate 66 Pulse Rate [Left Radial] 63 Pulse Rate from SpO2 Sensor 65 65 Pulse Rhythm Pulse Rhythm [Left Radial] Regular Pulse Strength Pulse Strength [Left Radial] Normal Respiratory Rate 16 16 Respiratory Effort / Characteristics Non-Labored Spontaneous Respiratory Depth Normal Respiratory Pattern Regular Blood Pressure Blood Pressure [Right Arm] 143/78 H Blood Pressure Mean Blood Pressure Mean [Right Arm] 99 Blood Pressure Position Blood Pressure Position [Right Arm] Pulse Oximetry 97 98 98 Oxygen Delivery Method Room Air Sepsis Recent Fever Within 48 Hours Sepsis New/Unexplained Change in Mental Status Sepsis Action Taken by Nursing 03/25/24 23:15 03/25/24 23:44 03/26/24 01:01 Pulse Rate 65 Pulse Rate [Left Radial] 68 65 Pulse Rate from SpO2 Sensor Pulse Rhythm Pulse Rhythm [Left Radial] Regular Regular Pulse Strength Pulse Strength [Left Radial] Normal Normal Respiratory Rate 16 16 Respiratory Effort / Characteristics Non-Labored Spontaneous Non-Labored Spontaneous Respiratory Depth Normal Normal Respiratory Pattern Regular Regular Blood Pressure Blood Pressure [Right Arm] 131/76 130/73 Blood Pressure Mean Blood Pressure Mean [Right Arm] 94 92 Blood Pressure Position Blood Pressure Position [Right Arm] Pulse Oximetry 98 93 Oxygen Delivery Method Room Air Room Air Sepsis Recent Fever Within 48 Hours Sepsis New/Unexplained Change in Mental Status Sepsis Action Taken by Nursing Laboratory Data 03/25/24 19:30 03/25/24 19:30 Lab Results 03/25/24 03/25/24 Range/Units 19:30 23:10 WBC 4.21 L (4.8-10.8) K/ul RBC 3.53 L (4.20-5.40) M/uL Hgb 11.7 L (12.0-16.0) g/dl Hct 34.0 L (37.0-47.0) % MCV 96.3 (80.0-100.0) fL MCH 33.1 (25.0-34.0) pg MCHC 34.4 (32.0-36.0) g/dL RDW Std Deviation 44.9 (36.4-46.3) fL RDW Coeff of [place] 12.8 (11.5-14.5) % Plt Count 102 L (130-400) K/uL MPV 8.0 L (9.4-12.4) fL Immature Gran % (Auto) 0.2 % Neut % (Auto) 62.1 % Lymph % (Auto) 21.9 % [place] % (Auto) 12.4 % Eos % (Auto) 2.9 % Baso % (Auto) 0.5 % Neut # (Auto) 2.62 (1.40-6.50) K/uL Lymph # (Auto) 0.92 L (1.20-3.40) K/uL [place] # (Auto) 0.52 (0.11-0.59) K/uL Eos # (Auto) 0.12 (0.00-0.50) K/uL Baso # (Auto) 0.02 (0.00-0.20) K/uL Immature Gran # (Auto) 0.01 (0.01-0.20) K/uL Sodium 124 L (136-145) mmol/L Potassium 4.7 (3.5-5.1) mmol/L Chloride 94 L (98-107) mmol/L Carbon Dioxide 25 (21-32) mmol/L Anion Gap 5 (3-11) BUN 6 (6-23) mg/dl Creatinine 0.76 (0.6-1.2) mg/dl Est Cr Clr Drug Dosing 75.7 ml/min Est GFR ( Amer) 95.4 ml/min Est GFR (Non-Af Amer) 82.3 ml/min BUN/Creatinine Ratio 7.9 L (10-20) Glucose 88 (70-99(Fasting)) mg/dl Osmolality 258 L (280-300) mOsm/kg Calcium 8.8 (8.6-10.3) mg/dl Total Bilirubin 0.6 (0.2-1.0) mg/dl AST 18 (13-39) U/L ALT 13 (7-52) U/L Alkaline Phosphatase 33 L (34-104) U/L Total Protein 6.3 (6.0-8.3) gm/dl Albumin 4.0 (3.4-5.0) gm/dl Globulin 2.3 L (2.5-4.0) gm/dl Albumin/Globulin Ratio 1.7 (0.9-2) Urine Color Yellow Urine Appearance Clear (Clear) Urine pH 5.5 (4.5-7.5) Ur Specific [place] 1.009 (1.000-1.030) Urine Protein Negative (Negative) Urine Glucose (UA) Negative (Negative) Urine Ketones Negative (Negative) Urine Blood Negative (Negative) Urine Nitrite Negative (Negative) Urine Bilirubin Negative (Negative) Urine Urobilinogen Negative (Negative) Ur Leukocyte Esterase Negative (Negative) Urine Osmolality 187 L (500-800) mOsm/kg Administered Medications Discontinued Medications Hydromorphone HCl (Hydromorphone Inj 0.5 Mg/0.5 Ml Syr) 0.5 mg IV NOW STA Stop: 03/26/24 00:12 Last Admin: 03/26/24 00:21 Dose: 0.5 mg Documented By: KAKaryn Sodium Chloride (Nss) 1,000 mls @ 75 mls/hr IV .[id number] LAURA Stop: 04/24/24 20:29 Last Infusion: 03/26/24 02:40 Dose: Infused Documented By: Admin: 03/25/24 20:32 Dose: 75 mls/hr Documented By: ADRIAN Imaging Data Radiologist's Impression: Chest X-Ray 03/25/24 19:36 SINGLE VIEW CHEST CLINICAL HISTORY: Illness FINDINGS: An AP, portable, upright chest radiograph is compared to study dated 11/28/2023 and correlated with chest CT dated 02/20/2024. The examination is degraded by portable technique and patient rotation. The heart is enlarged. The pulmonary vasculature is noncongested. The lungs and pleural spaces are clear. No pneumothorax is seen. The skeletal structures are osteopenic. The bony thorax is grossly intact. Fusion hardware is seen in the lower cervical spine. IMPRESSION: No no acute cardiopulmonary abnormality. ACT 112: Negative or not required by law. Electronically signed by: Keegan Caceres M.D. 03/25/2024 9:[address] 03/25/24 20:18 Exam(s): CT HEAD Without Contrast EXAM: CT Head Without Intravenous Contrast CLINICAL HISTORY: Reason for exam: weakness, confusion. TECHNIQUE: Axial computed tomography images of the head/brain without intravenous contrast. CTDI is 33.8 mGy and DLP is 547.75 mGy-cm. Automated exposure control was utilized for the study. A dose lowering technique was utilized adhering to the principles of ALARA. COMPARISON: Prior brain MRI from April 21, 2023. FINDINGS: Brain: Unremarkable. No hemorrhage. Mild nonspecific white matter changes. No edema. Ventricles: Moderate ventriculomegaly. Ventriculomegaly. Bones/joints: Right craniotomy. No acute fracture. Soft tissues: Unremarkable. Sinuses: Unremarkable as visualized. No acute sinusitis. Mastoid air cells: Unremarkable as visualized. No mastoid effusion. IMPRESSION: No evidence of acute intracranial pathology. Electronically signed by: Janette Pride MD 03/26/24 00:[address] 03/25/24 20:18 Exam(s): CT L SPINE EXAM: CT Lumbar Spine Without Intravenous Contrast CLINICAL HISTORY: Reason for exam: low back pain, fall. TECHNIQUE: Axial computed tomography images of the lumbar spine without intravenous contrast. CTDI is 37.52 mGy and DLP is 1097.01 mGy-cm. Automated exposure control was utilized for the study. A dose lowering technique was utilized adhering to the principles of ALARA. COMPARISON: Prior CT scan of lumbar spine from November 05, 2019. FINDINGS: Vertebrae: Unremarkable. No acute fracture. Diffuse osteopenia throughout the visualized bones. Discs/spinal canal/neural foramina: No acute findings. There is a critical spinal canal stenosis at L3-4 and L4-5 Soft tissues: Unremarkable. IMPRESSION: No evidence of acute lumbar spine pathology. Critical spinal canal stenosis at. L3-4 and L4-5. Recommend MRI of the lumbar spine for further evaluation. Electronically signed by: Janetet Pride MD 03/26/24 01:04 AM Discharge Plan Visit Data Chief Complaint: Weakness Stated Complaint: Weakness, Fall ED Provider: Richard Parrish Discharge Problem: Generalized weakness, Hyponatremia, Spinal stenosis Forms Stand Alone Forms: [facility] [place] [employer] Prescriptions Prescriptions: No Action calcium carbonate-vitamin D3 [Calcium 600 with Vitamin D3] 600 mg-12.5 mcg (500 unit) capsule 1 cap PO QAM Hold Instructions: SURGERY nystatin 100,000 unit/gram cream 1 applic topical DAILY PRN (Reason: Skin Irritation) losartan 25 mg tablet 25 mg PO BID Trintellix 20 mg tablet 20 mg PO QAM chlorpheniramine maleate [Allergy Relief(chlorpheniramn)] 4 mg tablet 4 mg PO Q12H 30 Days Qty: 60 3RF pseudoephedrine HCl [Sudafed 12 Hour] 120 mg tablet extended release 120 mg PO BID 30 Days Qty: 60 3RF Hold Instructions: SURGERY clotrimazole 2 % cream 1 appful topical ONCE Qty: 21 1RF metoprolol succinate 25 mg tablet extended release 24 hr 25 mg PO QAM rizatriptan 10 mg tablet,disintegrating 10 mg PO DIRECTED MDD 3 DOSES/24 HOURS PRN (Reason: Migraine Headache) Rx Instructions: TAKE 10 MG AT ONSET OF YEPEZ, THEN REPEAT IN 2 HOURS IF NEEDED. MAX 3 DOSES/24 HOURS. omeprazole 40 mg capsule,delayed release(DR/EC) 40 mg PO DAILY PRN (Reason: gerd) alendronate 35 mg tablet 35 mg PO WK Rx Instructions: TAKE THIS MED EVERY FRIDAY MORNING trazodone 150 mg tablet 75 - 150 mg PO HS PRN (Reason: Sleep) buspirone 30 mg tablet 30 mg PO BID diazepam 5 mg tablet 5 mg PO DAILY PRN (Reason: Anxiety) Centrum Women 18-400 mg-mcg Tablet 1 tab PO QAM Hold Instructions: SURGERY solifenacin [Vesicare] 5 mg tablet 5 mg PO QAM fluticasone propionate 50 mcg/actuation spray,suspension 1 spray INTRANASAL BID PRN (Reason: Congestion) Referrals Referrals: Swetha Newberry DO [Primary Care Provider] -
[2024-03-25] MEDS: SODIUM CHLORIDE 0.9% 1,000 ML IV SCH (20:32)
--- NOTE | 2024-03-25 21:49 | XRay Report ---
SINGLE VIEW CHEST CLINICAL HISTORY: Illness FINDINGS: An AP, portable, upright chest radiograph is compared to study dated 11/28/2023 and correlat ed with chest CT dated 02/20/2024. The examination is degraded by portable technique and patient rotati on. The heart is enlarged. The pulmonary vasculature is noncongested. The lungs and pleural spaces a re clear. No pneumothorax is seen. The skeletal structures are osteopenic. The bony thorax is grossly intact. Fusion hardware is seen in the lower cervical spine. IMPRESSION: No no acute cardiopulmonary abnormality. ACT 112: Negative or not required by law. Electronically signed by: Keegan Caceres M.D. 03/25/2024 9:47 PM
[2024-03-25 23:31] LABS: Appearance Urine Clear (Clear); Bilirubin Urine Negative (Negative); Blood Urine Negative (Negative); Color Urine Yellow; Glucose Urine UA Negative (Negative); Ketones Urine Negative (Negative); Leukocyte Esterase Urine Negative (Negative); Nitrite Urine Negative (Negative); Protein Urine Negative (Negative); Specific Gravity Urine 1.009 (1.000-1.030); Urobilinogen Urine Negative (Negative); pH Urine 5.5 (4.5-7.5)
[2024-03-26] MEDS: HYDROmorphone INJ 0.5 MG/0.5 ML SYR IV STA (00:21)
--- NOTE | 2024-03-26 00:56 | CT Scan Report ---
Exam(s): CT HEAD Without Contrast EXAM: CT Head Without Intravenous Contrast CLINICAL HISTORY: Reason for exam: weakness, confusion. TECHNIQUE: Axial computed tomography images of the head/brain without intravenous contrast. CTDI is 33.8 mGy and DLP is 547.75 mGy-cm. Automated exposure control was utilized for the study. A dose lowering technique was utilized adhering to the principles of ALARA. COMPARISON: Prior brain MRI from April 21, 2023. FINDINGS: Brain: Unremarkable. No hemorrhage. Mild nonspecific white matter changes. No edema. Ventricles: Moderate ventriculomegaly. Ventriculomegaly. Bones/joints: Right craniotomy. No acute fracture. Soft tissues: Unremarkable. Sinuses: Unremarkable as visualized. No acute sinusitis. Mastoid air cells: Unremarkable as visualized. No mastoid effusion. IMPRESSION: No evidence of acute intracranial pathology. Electronically signed by: Janette Pride MD 03/26/24 00:55 AM
--- NOTE | 2024-03-26 01:05 | CT Scan Report ---
Exam(s): CT L SPINE EXAM: CT Lumbar Spine Without Intravenous Contrast CLINICAL HISTORY: Reason for exam: low back pain, fall. TECHNIQUE: Axial computed tomography images of the lumbar spine without intravenous contrast. CTDI is 37.52 mGy and DLP is 1097.01 mGy-cm. Automated exposure control was utilized for the study. A dose lowering technique was utilized adhering to the principles of ALARA. COMPARISON: Prior CT scan of lumbar spine from November 05, 2019. FINDINGS: Vertebrae: Unremarkable. No acute fracture. Diffuse osteopenia throughout the visualized bones. Discs/spinal canal/neural foramina: No acute findings. There is a critical spinal canal stenosis at L3-4 and L4-5 Soft tissues: Unremarkable. IMPRESSION: No evidence of acute lumbar spine pathology. Critical spinal canal stenosis at. L3-4 and L4-5. Recommend MRI of the lumbar spine for further evaluation. Electronically signed by: Janette Pride MD 03/26/24 01:04 AM
[2024-03-26] MEDS ORDERED: STAT IV/IM STA (01:38)
--- NOTE | 2024-03-26 01:43 | History & Physical Report ---
Date of Service March 26, 2024 Assessment & Plan (1) Hyponatremia with decreased serum osmolality: (2) Polydipsia: (3) Xerostomia: (4) Generalized weakness: (5) Spinal stenosis of lumbar region: (6) Lumbar facet joint syndrome: (7) Liver cirrhosis: (8) Depression: (9) GERD (gastroesophageal reflux disease): Plan Hyponatremia/hypoosmolality/excessive liquid intake/xerostomia- Sodium 124, serum osmolality 258, urine osmolality 187 Patient on discussion, does report significant dry mouth, and needs to drink liquids frequently She is on at least 3 medications which may contribute to dry mouth Give 50 mL 3% hypertonic saline Placed on sodium chloride 1 g p.o. twice daily Fluid restriction 1200 mL Temporarily hold chlorpheniramine maleate, Solifenacin, and vortioxetine Repeat laboratories every morning Critical lumbar spinal stenosis- CT scan notes at L3-4 and L4-5 MRI lumbar spine has been ordered as suggested by radiology Consult orthopedic spine surgery Dr. Jj Depression/anxiety- Continue buspirone 30 mg p.o. twice daily, diazepam 5 mg daily as needed, and t razodone 100 mg p.o. at bedtime as needed History of Present Illness Chief Complaint: The patient presents to the emergency department with complaint of generalized weakness over the past 8 months, with intermittent falling, and persistent low back pain, all of which have worsened over the past 2 weeks Primary Care Provider: Swetha Prakash DO The patient is a 64-year-old female with a past medical history including myofascial pain syndrome, episodes of speech arrest, lumbar facet joint syndrome, ROSANGELA, liver cirrhosis, depression, chronic hyponatremia, status post cervical spinal fusion, history of craniotomy, COPD, alcoholism, cryptitis severe pulmonary artery hypertension, nonischemic cardiomyopathy, and seizure disorder. The patient presents to the emergency department with 8 months of symptoms as noted above, that worsened over the past 2 weeks, with her most significant concern of generalized weakness Allergies Allergy/AdvReac Type Severity Reaction Status Date / Time aripiprazole AdvReac Severe seizure Verified 03/26/24 02:09 activity per [facility] EMR gabapentin AdvReac Severe Confusion Verified 03/26/24 02:09 acetaminophen AdvReac Unknown per [facility] Verified 03/26/24 02:09 EMR, to be avoided given cirrhosis ibuprofen AdvReac Unknown per [facility] Verified 03/26/24 02:09 EMR to be avoided given cirrhosis Home Medications Medication Instructions Recorded Confirmed Type metoprolol succinate 25 mg 25 mg PO QAM 11/21/21 03/26/24 History tablet,extended release 24 hr rizatriptan 10 mg disintegrating 10 mg PO DIRECTED PRN Migraine 11/21/21 03/26/24 History tablet Headache calcium carbonate 600 mg-vitamin 1 cap PO QAM 08/02/22 03/26/24 History D3 12.5 mcg (500 unit) capsule (Calcium 600 with Vitamin D3) alendronate 35 mg tablet 35 mg PO WK 04/20/23 03/26/24 History buspirone 30 mg tablet 30 mg PO BID 04/20/23 03/26/24 History diazepam 5 mg tablet 5 mg PO DAILY PRN Anxiety 04/20/23 03/26/24 History multivitamin-ferrous 1 tab PO QAM 04/20/23 03/26/24 History fumarate-folic acid 18 mg-400 mcg tablet (Centrum Women) omeprazole 40 mg capsule,delayed 40 mg PO DAILY PRN gerd 04/20/23 03/26/24 History release trazodone 150 mg tablet 75 - 150 mg PO HS PRN Sleep 04/20/23 03/26/24 History losartan 25 mg tablet 25 mg PO BID 07/31/23 03/26/24 History nystatin 100,000 unit/gram topical 1 applic topical DAILY PRN Skin 07/31/23 03/26/24 History cream Irritation vortioxetine 20 mg tablet 20 mg PO QAM 07/31/23 03/26/24 History (Trintellix) chlorpheniramine maleate 4 mg 4 mg PO Q12H 30 days #60 tabs 12/15/23 03/26/24 Rx tablet (Allergy Relief (chlorpheniramine)) pseudoephedrine HCl 120 mg 120 mg PO BID 30 days #60 tabs 12/15/23 03/26/24 Rx tablet,extended release (Sudafed 12 Hour) clotrimazole 2 % vaginal cream 1 appful topical ONCE #21 grams 01/02/24 03/26/24 Rx solifenacin 5 mg tablet (Vesicare) 5 mg PO QAM 03/01/24 03/26/24 History fluticasone propionate 50 1 spray intranasal BID PRN 03/26/24 03/26/24 History mcg/actuation nasal Congestion spray,suspension Past Med/Surg History Problem List (Updated 03/26/24 @ 03:39 by Timmy Bruno MD) Xerostomia GERD (gastroesophageal reflux disease) controlled, stable per pt Polydipsia Hyponatremia with decreased serum osmolality Spinal stenosis of lumbar region Spinal stenosis (Acute) Hyponatremia (Acute) Generalized weakness (Acute) Incontinence (Chronic) Myofascial pain Dermatochalasis of both upper eyelids 10/28/23 Shoulder pain Status post arthroscopy of left knee Knee pain, left Encounter for pre-operative examination Episodes of speech arrest 04/21/23 Episodes of staring 04/21/23 Lumbar facet joint syndrome Lumbar spondylosis Thrombocytopenia Spinal stenosis Positive ROSANGELA (antinuclear antibody) Scalp hematoma Gastritis 01/30/22 Liver cirrhosis Elevated LFTs Ambulatory dysfunction (Acute) Frequent falls (Acute) Depression Chronic pain disorder Hypocalcemia Anemia Leukopenia Encephalopathy Metabolic acidosis (Acute) Hypomagnesemia (Acute) Chronic hyponatremia S/P cervical spinal fusion ROM WNL History of onel hole surgery History of arthroscopic procedure on shoulder Rt History of carpal tunnel surgery Rt COPD (chronic obstructive pulmonary disease) pt denies Alcoholism (Acute) Chronic pancreatitis pt denies Severe pulmonary arterial systolic hypertension Nonischemic cardiomyopathy Hyponatremia (Acute) Uterine leiomyoma (Chronic 07/18/11) 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/11) Seizure disorder (Chronic 05/16/12) Medical History (Updated 03/26/24 @ 03:39 by Timmy Bruno MD) Difficult airway for intubation limited cervical spine extension; s/p cervical spinal fusion Lumbar facet joint syndrome Lumbar spondylosis Hx of falling last fall over 1 year ago per patient Hx of gastritis patient denies recent flare Hx of encephalopathy COPD (chronic obstructive pulmonary disease) pt. denies History of alcoholism (2021) quit 2021 (drank 6 beers/day) Hx of tinnitus Hx of migraines Pulmonary hypertension Echo 09/2019: "Moderate pulmonary hypertension"/Estimated PASP 51mmhg, assuming RAP of 3mmhg Seasonal allergies Thrombocytopenia Chronic Chronic hyponatremia Non-ischemic cardiomyopathy EF 35-40% in 2018, 60-65% in 2020 Hx of chronic pancreatitis Per records, patient denies History of anemia Chronic pain disorder back Depression Positive ROSANGELA (antinuclear antibody) Stress incontinence Chronic cough Follows with [facility] pulm - pt. reports due to pollen and states has nearly resolved in recent months Hx of hepatitis C (1979) Late , treated HTN (hypertension) controlled, stable per pt Cirrhosis lost to f/u with [facility] History of subdural hematoma (2010) 2010 Osteoarthritis History of seizure (2010) Following subdural hematoma 2011 from fall No issues since per patient-last episode 1 year ago Follows [facility] neurolog[facility] Surgical History Hx of blepharoplasty (01/2024) History of craniotomy (2010) Due to subdural hematoma from fall Hx of hysterectomy Hx of cholecystectomy History of carpal tunnel release right Hx of arthroscopy of shoulder right Hx of arthroscopy of left knee S/P cervical spinal fusion unsure of level, full ROM History of onel hole surgery (2010) lead to craniotomy History of esophagogastroduodenoscopy (EGD) History of colonoscopy Family History Mother Hypertension Other No family history of adverse response to anesthesia Social History Smoking Status: Former smoker Tobacco Type: Cigarettes Age Started Using Tobacco: 18; Age Quit Using Tobacco: 30; packs per day: 1; Second Hand Exposure: No; Do You Dip or Chew Tobacco: No; Hx Alcohol Use: Yes Alcohol type: beer Alcohol Intake Frequency Comment: 5 beers/day Hx Substance Use: No Preferred Language: [place] Communication Ability: Effective [employer] Leader Required: No Beliefs That Will Affect Care: None marital status: Single Current Living Situation: Spouse current occupational status: unemployed How many Children do You have: 0 Feels Safe at Home: Yes Assistive Devices: Glasses and Hearing Aid - Bilateral Review of Systems Review of Systems: The patient denies chest pain, palpitations, shortness of breath, dyspnea on exertion, cough, lower extremity swelling, sore throat, fevers, chills, sweats, nausea, vomiting, diarrhea , constipation, abdominal pain, pelvic pain, blood in urine or stool, dysuria, urinary frequency or urgency, loss of consciousness, rash, abnormal bruising or bleeding, Focal weakness, numbness or tingling in arms or legs, or night sweats. The review of systems is otherwise negative other than for that already noted above, and at least 10 systems have been reviewed. Physical Exam Physical Exam: The patient is awake, alert and oriented 3, well developed and well nourished, normocephalic and atraumatic, lying in bed and in no acute distress. HEENT--PERRL, EOMI, mucous membranes and oropharynx dry. Neck--supple. No JVD. No bruits. Thyroid normal, trachea midline, no adenopathy. Heart--normal S1 and S2. No murmurs, rubs or gallops. Lungs--clear bilaterally, no respiratory distress, no accessory muscle use. Abdomen--normal bowel sounds and soft. Nontender. Nondistended, no hernias or masses, no organomegaly. Extremities--no cyanosis or clubbing. No edema. Dermatologic--normal skin turgor, normal color, no abnormal lymph nodes, no rash. Neurologic--cranial nerves II through XII grossly intact. Rheumatologic--normal range of motion. Psychiatric--normal affect. Results & Data Results & Data Vital Signs (Past 12 Hours) Vital Signs Pulse Pulse Resp BP BP Pulse Ox O2 Del Method 03/26/24 01:01 65 16 130/73 93 Room Air 03/25/24 23:44 65 03/25/24 23:15 68 16 131/76 98 Room Air 03/25/24 21:19 63 16 143/78 H 98 Room Air 03/25/24 21:09 98 03/25/24 20:33 66 16 97 03/25/24 20:03 63 13 99 03/25/24 20:01 146/107 H 03/25/24 20:00 62 17 146/107 H 97 Room Air 03/25/24 19:57 64 14 96 03/25/24 19:39 62 03/25/24 19:32 64 16 152/85 H 98 Room Air 03/25/24 19:30 64 17 03/25/24 19:27 63 19 03/25/24 19:26 16 L 16 152/85 H 96 Room Air Laboratory Results Laboratory Results WBC 4.21 K/ul (4.8-10.8) L 03/25/24 19:30 RBC 3.53 M/uL (4.20-5.40) L 03/25/24 19:30 Hgb 11.7 g/dl (12.0-16.0) L 03/25/24 19:30 Hct 34.0 % (37.0-47.0) L 03/25/24 19:30 MCV 96.3 fL (80.0-100.0) 03/25/24 19:30 MCH 33.1 pg (25.0-34.0) 03/25/24 19: MCHC 34.4 g/dL (32.0-36.0) 03/25/24 19:30 RDW Std Deviation 44.9 fL (36.4-46.3) 03/25/24: RDW Coeff of [place] 12.8 % (11.5-14.5) 03/25/24: Plt Count 102 K/uL (130-400) L 03/25/24 19:30 MPV 8.0 fL (9.4-12.4) L 03/25/24 19:30 Immature Gran % (Auto) 0.2 % 03/25/24 19:30 Neut % (Auto) 62.1 % 03/25/24 19:30 Lymph % (Auto) 21.9 % 03/25/24 19:30 [place] % (Auto) 12.4 % 03/25/24 19:30 Eos % (Auto) 2.9 % 03/25/24 19:30 Baso % (Auto) 0.5 % 03/25/24 19:30 Neut # (Auto) 2.62 K/uL (1.40-6.50) 03/25/24 19:30 Lymph # (Auto) 0.92 K/uL (1.20-3.40) L 03/25/24 19:30 [place] # (Auto) 0.52 K/uL (0.11-0.59) 03/25/24 19:30 Eos # (Auto) 0.12 K/uL (0.00-0.50) 03/25/24 19:30 Baso # (Auto) 0.02 K/uL (0.00-0.20) 03/25/24 19:30 Immature Gran # (Auto) 0.01 K/uL (0.01-0.20) 03/25/24 19:30 Sodium 124 mmol/L (136-145) L 03/25/24 19:30 Potassium 4.7 mmol/L (3.5-5.1) 03/25/24 19:30 Chloride 94 mmol/L (98-107) L 03/25/24 19:30 Carbon Dioxide 25 mmol/L (21-32) 03/25/24 19:30 Anion Gap 5 (3-11) 03/25/24 19:30 BUN 6 mg/dl (6-23) 03/25/24 19:30 Creatinine 0.76 mg/dl (0.6-1.2) 03/25/24 19:30 Est Cr Clr Drug Dosing 75.7 ml/min 03/25/24 19:30 Est GFR ( Amer) 95.4 ml/min 03/25/24 19:30 Est GFR (Non-Af Amer) 82.3 ml/min 03/25/24 19:30 BUN/Creatinine Ratio 7.9 (10-20) L 03/25/24 19:30 Glucose 88 mg/dl (70-99(Fasting)) 03/25/24 19:30 Osmolality 258 mOsm/kg (280-300) L 03/25/24 19:30 Calcium 8.8 mg/dl (8.6-10.3) 03/25/24 19:30 Total Bilirubin 0.6 mg/dl (0.2-1.0) 03/25/24 19:30 AST 18 U/L (13-39) 03/25/24 19:30 ALT 13 U/L (7-52) 03/25/24 19:30 Alkaline Phosphatase 33 U/L (34-104) L 03/25/24 19:30 Total Protein 6.3 gm/dl (6.0-8.3) 03/25/24 19:30 Albumin 4.0 gm/dl (3.4-5.0) 03/25/24 19:30 Globulin 2.3 gm/dl (2.5-4.0) L 03/25/24 19:30 Albumin/Globulin Ratio 1.7 (0.9-2) 03/25/24 19:30 Urine Color Yellow 03/25/24 23:10 Urine Appearance Clear (Clear) 03/25/24 23:10 Urine pH 5.5 (4.5-7.5) 03/25/24 23:10 Ur Specific [place] 1.009 (1.000-1.030) 03/25/24 23:10 Urine Protein Negative (Negative) 03/25/24 23:10 Urine Glucose (UA) Negative (Negative) 03/25/24 23:10 Urine Ketones Negative (Negative) 03/25/24 23:10 Urine Blood Negative (Negative) 03/25/24 23:10 Urine Nitrite Negative (Negative) 03/25/24 23:10 Urine Bilirubin Negative (Negative) 03/25/24 23:10 Urine Urobilinogen Negative (Negative) 03/25/24 23:10 Ur Leukocyte Esterase Negative (Negative) 03/25/24 23:10 Urine Osmolality 187 mOsm/kg (500-800) L 03/25/24 23:10 Impressions Chest X-Ray 03/25/24 19:36 SINGLE VIEW CHEST CLINICAL HISTORY: Illness FINDINGS: An AP, portable, upright chest radiograph is compared to study dated 11/28/2023 and correlated with chest CT dated 02/20/2024. The examination is deg raded by portable technique and patient rotation. The heart is enlarged. The pulmonary vasculature is noncongested. The lungs and pleural spaces are clear. No pneumothorax is seen. The skeletal structures are osteopenic. The bony thorax is grossly intact. Fusion hardware is seen in the lower cervical spine. IMPRESSION: No no acute cardiopulmonary abnormality. ACT 112: Negative or not required by law. Electronically signed by: Keegan Caceres M.D. 03/25/2024 9:[address] 03/25/24 20:18 Exam(s): CT HEAD Without Contrast EXAM: CT Head Without Intravenous Contrast CLINICAL HISTORY: Reason for exam: weakness, confusion. TECHNIQUE: Axial computed tomography images of the head/brain without intravenous contrast. CTDI is 33.8 mGy and DLP is 547.75 mGy-cm. Automated exposure control was utilized for the study. A dose lowering technique was utilized adhering to the principles of ALARA. COMPARISON: Prior brain MRI from April 21, 2023. FINDINGS: Brain: Unremarkable. No hemorrhage. Mild nonspecific white matter changes. No edema. Ventricles: Moderate ventriculomegaly. Ventriculomegaly. Bones/joints: Right craniotomy. No acute fracture. Soft tissues: Unremarkable. Sinuses: Unremarkable as visualized. No acute sinusitis. Mastoid air cells: Unremarkable as visualized. No mastoid effusion. IMPRESSION: No evidence of acute intracranial pathology. Electronically signed by: Janette Pride MD 03/26/24 00:[address] 03/25/24 20:18 Exam(s): CT L SPINE EXAM: CT Lumbar Spine Without Intravenous Contrast CLINICAL HISTORY: Reason for exam: low back pain, fall. TECHNIQUE: Axial computed tomography images of the lumbar spine without intravenous contrast. CTDI is 37.52 mGy and DLP is 1097.01 mGy-cm. Automated exposure control was utilized for the study. A dose lowering technique was utilized adhering to the principles of ALARA. COMPARISON: Prior CT scan of lumbar spine from November 05, 2019. FINDINGS: Vertebrae: Unremarkable. No acute fracture. Diffuse osteopenia throughout the visualized bones. Discs/spinal canal/neural foramina: No acute findings. There is a critical spinal canal stenosis at L3-4 and L4-5 Soft tissues: Unremarkable. IMPRESSION: No evidence of acute lumbar spine pathology. Critical spinal canal stenosis at. L3-4 and L4-5. Recommend MRI of the lumbar spine for further evaluation. Electronically signed by: Janette Pride MD 03/26/24 01:04 AM Code Status & VTE Plan Code Status Full code VTE Prophylaxis Plan VTE Prophylaxis will be ordered: Yes PG Care Time/CCT Total # of Minutes Spent Total Time Spent with Patient: Total time spent is greater than 50% in coordination of care (as documented) at patient's floor/unit and/or counseling patient: Coding Level of Care Code 77884 INT INP/OBS CARE 3/75MIN Diagnoses Hyponatremia with decreased serum osmolality E87.1 Polydipsia R63.1 Xerostomia K11.7 Generalized weakness R53.1 Spinal stenosis of lumbar region M48.061 Lumbar facet joint syndrome M47.816 Liver cirrhosis K74.60 Depression F32.A GERD (gastroesophageal reflux disease) K21.9
[2024-03-26] MEDS: SODIUM CHLORIDE 3 % 50 ML IV ONE (03:15)
[2024-03-26] MEDS ORDERED: ONDANSETRON INJ 2 MG/ML 2 ML VIAL IV PRN (04:16)
[2024-03-26] MEDS ORDERED: traZODone HCL 100 MG TAB PO PRN (04:16)
--- NOTE | 2024-03-26 05:24 | Magnetic Resonance Report ---
Exam(s): MRI L SPINE Without Contrast EXAM: MR Lumbar Spine Without Intravenous Contrast CLINICAL HISTORY: Reason for exam: severe stenosis on CT, leg weakness. TECHNIQUE: Magnetic resonance images of the lumbar spine without intravenous contrast in multiple planes. COMPARISON: Prior CT scan of the lumbar spine from March 25, 2024. FINDINGS: Vertebrae: There are 7 cervical type vertebral bodies with a mild generalized curve to the left and shallow lumbar lordosis. There is normal vertebral body height and alignment. The bone marrow signal is heterogeneous with reactive endplate changes. No acute fracture. There are multiple Schmorl's nodes in the thoracolumbar spine. Spinal cord: Unremarkable. Normal signal. Soft tissues: Distended urinary bladder. Advanced atrophy of the iliopsoas, paraspinous intraspinous musculature. The aorta and IVC flow voids are intact. The visualized kidneys are unremarkable. DISCS/SPINAL CANAL/NEURAL FORAMINA: L1-L2: There is mild disc degeneration with annular disc bulge causing a mild subarticular recess stenosis with disc extending into the left neural foramen without evidence of impingement or significant stenosis. L2-L3: There is mild disc degeneration with annular disc bulge flattening the ventral thecal sac with disc extending to the neural foramina without impingement or significant stenosis. L3-L4: Moderate disc degeneration with annular disc bulge causing a mild subarticular recess stenosis with disc extending into the neural foramina causing a mild right stenosis without evidence of neural impingement, with superimposed degeneration pedicles and facet joint arthropathy causing a mild spinal canal stenosis. There is disc extending to the neural foramina causing a mild right stenosis without evidence of neural impingement. L4-L5: Advanced disc degeneration with annular disc bulge causing a severe subarticular recess stenosis with impingement of the transiting L5 nerve roots and a critical spinal canal stenosis with thecal sac area measuring 0.18 cm. There is disc extending to the neural foramina causing a moderate left stenosis with mild impingement of the left L4 nerve root ganglion. L5-S1: The intervertebral disc is normal. IMPRESSION: 1. Advanced disc degeneration at L4-5, moderate disc degeneration at L3- 4 and mild disc degeneration at L1-2, and L2-3 with annular disc bulging flattening the ventral thecal sac and causing a mild subarticular recess stenosis at L1-2, L3-4, and severe subarticular recess stenosis at L4-5 with impingement of the transiting L5 nerve roots. Recommend a surgical consult for decompression. 2. There is a critical spinal canal stenosis at L4-5 and a mild stenosis at L3-4. 3. There is a mild right L3-4, and moderate left L4-5 neural foraminal stenosis with mild impingement of the left L4 nerve root ganglion. 4. No evidence of fracture, infection, tumor or arachnoiditis. 5. Distended urinary bladder, recommend Rent[place] catheter for decompression. Electronically signed by: Janette Pride MD 03/26/24 05:23 AM
[2024-03-26 07:08] LABS: Basophils # (auto) 0.01 K/uL (0.00-0.20); Basophils % (auto) 0.3 %; Eosinophils # (auto) 0.07 K/uL (0.00-0.50); Eosinophils % (auto) 2.4 %; Hematocrit (blood only) 33.9 % (37.0-47.0); Hemoglobin 11.6 g/dl (12.0-16.0); Immature Granulocytes # (auto) 0.01 K/uL (0.01-0.20); Immature Granulocytes % (auto) 0.3 %; Lymphocytes # (auto) 0.61 K/uL (1.20-3.40); Lymphocytes % (auto) 21.1 %; Mean Corpuscular Hemoglobin 33.3 pg (25.0-34.0); Mean Corpuscular Hgb Conc 34.2 g/dL (32.0-36.0); Mean Corpuscular Volume 97.4 fL (80.0-100.0); Mean Platelet Volume 8.1 fL (9.4-12.4); Monocytes # (auto) 0.31 K/uL (0.11-0.59); Monocytes % (auto) 10.7 %; Neutrophils # (auto) 1.88 K/uL (1.40-6.50); Neutrophils % (auto) 65.2 %; Platelet Count 83 K/uL (130-400); RDW Standard Deviation 46.9 fL (36.4-46.3); Red Blood Count 3.48 M/uL (4.20-5.40); White Blood Count 2.89 K/ul (4.8-10.8)
[2024-03-26 07:26] LABS: Albumin Level 3.7 gm/dl (3.4-5.0); BUN Creatinine Ratio 7.5 (10-20); Calcium 8.5 mg/dl (8.6-10.3); Creatinine Clr Calc Pharmacy 83.8 ml/min; Est GFR (African American) 106.9 ml/min; Est GFR (Non-African American) 92.2 ml/min; Phosphorus 3.8 mg/dl (2.5-4.9); Potassium 4.5 mmol/L (3.5-5.1)
[2024-03-26] MEDS: busPIRone 15 MG TAB PO SCH (08:22)
[2024-03-26] MEDS: HEPARIN SOD 5,000 UNIT/0.5 ML VIAL SQ SCH (08:23)
[2024-03-26] MEDS: METOPROLOL SUCC 25MG EXT REL TAB PO SCH (08:23)
[2024-03-26] MEDS: SODIUM CHLORIDE 1 GM TABLET PO SCH (08:23)
--- NOTE | 2024-03-26 08:26 | Hospitalist Progress Note ---
Date of Service March 26, 2024 Assessment & Plan (1) Spinal stenosis of lumbar region: (2) Hyponatremia with decreased serum osmolality: (3) Xerostomia: (4) Generalized weakness: (5) Thrombocytopenia: Plan (1) Hyponatremia with decreased serum osmolality: (2) Polydipsia: (3) Xerostomia: (4) Generalized weakness: (5) Spinal stenosis of lumbar region: (6) Lumbar facet joint syndrome: (7) Liver cirrhosis: (8) Depression: (9) GERD (gastroesophageal reflux disease): Plan 1) Hyponatremia/hypoosmolality/excessive liquid intake/xerostomia- Sodium 124, serum osmolality 258, urine osmolality 187 Patient on discussion, does report significant dry mouth, and needs to drink liquids frequently She is on at least 3 medications which may contribute to dry mouth Gave 50 mL 3% hypertonic saline, placed on sodium chloride 1g, PO, twice daily Fluid restriction 1200 mL Temporarily hold chlorpheniramine maleate, Solifenacin, and vortioxetine Repeat laboratories every morning 2) Critical lumbar spinal stenosis CT scan notes at L3-4 and L4-5 MRI lumbar spine has been ordered as suggested by radiology Consult orthopedic spine surgery Dr. Jj Patient previously didn't meet medical clearance platelet count, 83 (> 50, should meet criteria) Cirrhosis, patient w/ MELD score of 7 seizures, patient not currently on anti-seizure medication (previously on Keppra but stopped) RCRI score, 1--Class 2 risk* (due to Class II diastolic dysfunction on last Echocardiogram) - *patient's cardiology pre-op evaluation nuclear stress test was negative for myocardial perfusion for significant Lexiscan-induced ischemia Pain: Tylenol, 500 mg, PO, q6h (in context of cirrhosis) and oxycodone, 5 mg, TID, PO 3) Depression/anxiety Continue buspirone 30 mg, PO, twice daily, diazepam 5 mg daily as needed, and trazodone 100 mg, PO at bedtime as needed Code status: Full code Disposition: Med-Surg w/ Tele FENGI: Heart health, fluid restriction (1200 mL) VTE Prophylaxis: SCD's (to the knee) Admission and Anticipated Discharge Date Admission Date: March 26, 2024 Supervising Physician Co-Signing Physician Notes Attending Physician Supervision Note: I independently interviewed and examined the patient and verified the rachel history and physical, reviewed labs and image studies and agree with findings and care plan noted above. Generalized weakness - likely multifactorial - Hyponatremia and Nerve compression leading to ambulatory dysfunction. Hyponatremia - excess water intake d/t dry mouth and medication. Improving. Continue to hold chlorpheniramine maleate, Solifenacin, and vortioxetine Continue water restriction. Critical nerve compression - Await spine surgery consult Continue pain control Diazepam for muscle relaxation. Reviewed Preop clearance notes. Subjective The patient is a 64-year-old female with a past medical history including myofascial pain syndrome, episodes of speech arrest, lumbar facet joint syndrome, ROSANGELA, liver cirrhosis, depression, chronic hyponatremia, status post cervical spinal fusion, history of craniotomy, COPD, alcoholism, cryptitis, severe pulmonary artery hypertension, nonischemic cardiomyopathy, and seizure disorder. The patient presents to the emergency department with 8 months of generalized weakness, with intermittent falling and persistent low back pain, all of which have worsened over the past 2 weeks, with her most significant concern that of generalized weakness. Patient fell twice yesterday before coming to the [facility] ED to be admitted. Patient attributes her falls to a combination of her osteoarthritis ("bone on bone pain"), s/p cervical spinal fusion, low back and SI joint pain, and generally pt's advanced age. Patient is on Valium, 5 mg, daily in the hospital, but states her primary care provider recently transitioned her to Valium, 5 mg, BID at home. Pt placed on Tylenol for pain, 500 mg, PO, q6h. Patient feels pain of 8/10 between her shoulders right now. Review of Systems Constitutional: + fatigue and + weakness; no fever and n o chills Respiratory: no cough (hx of chronic cough, none presently), no chest congestion and no dyspnea Cardiovascular: no chest pain and no palpitations Gastrointestinal: + diarrhea/loose stools (chronically for 6 weeks, loose stools 3-4 BM's/day); no abdominal pain, no nausea, no vomiting and no constipation Genitourinary: + urinary incontinence and + post-void d ribbling; no dysuria and no urinary frequency Neurologic: + gait abnormality, + unsteadiness, + fa lls, + generalized weakness and + headache(s); no tingling, no numbness and no dizziness Physical Exam Constitutional: WD/WN, vitals as above Respiratory: normal respiratory effort, lungs clear to auscultation Cardiovascular: RRR, no murmur, no edema Extremities: normal capillary refill; no calf tenderness and no pedal edema Gastrointestinal (Abdomen): normal bowel sounds, soft, nontender, no hepatosplenomegaly Inspection/Auscultation: abdomen normal to inspection; abdomen not distended Percussion/Palpation: abdomen nontender Psychiatric: Orientation: alert, oriented to person, oriented to place and cooperative; + not oriented to time Results & Data Results & Data Vital Signs (Past 12 Hours) Vital Signs Temp Pulse Pulse Pulse Resp BP Pulse Ox 03/26/24 08:04 36.5 C 64 17 155/84 H 97 03/26/24 08:00 03/26/24 07:00 68 03/26/24 04:13 64 03/26/24 04:01 36.5 C 66 16 145/75 H 98 03/26/24 03:23 65 20 138/71 94 03/26/24 01:01 65 16 130/73 93 03/25/24 23:44 65 03/25/24 23:15 68 16 131/76 98 03/25/24 21:19 63 16 143/78 H 98 03/25/24 21:09 98 03/25/24 20:33 66 16 97 O2 Del Method 03/26/24 08:04 Room Air 03/26/24 08:00 Room Air 03/26/24 07:00 03/26/24 04:13 03/26/24 04:01 Room Air 03/26/24 03:23 Room Air 03/26/24 01:01 Room Air 03/25/24 23:44 03/25/24 23:15 Room Air 03/25/24 21:19 Room Air 03/25/24 21:09 03/25/24 20:33 Resident Activity Tracking Resident Involvement: Resident Care Provided Care Provided: Adult Hospital Medicine
[2024-03-26] MEDS: diazePAM 5 MG TABLET PO PRN ×2 (10:02→21:06)
--- NOTE | 2024-03-26 10:02 | Electrocardiogram Report ---
Test Reason : Blood Pressure : */* mmHG Vent. Rate : 63 BPM Atrial Rate : 63 BPM P-R Int : 188 ms QRS Dur : 96 ms QT Int : 460 ms P-R-T Axes : 24 -34 26 degrees QTcB Int : 470 ms Normal sinus rhythm Left axis deviation Pulmonary disease pattern Abnormal ECG When compared with ECG of 24-Apr-2023 13:58, Nonspecific T wave abnormality no longer evident in Lateral leads Confirmed by Rafael Pantoja ([id number]) on 03/26/2024 10:02:26 AM Referred By: REFERRED SELF Confirmed By: Rafael Pantoja
[2024-03-26] MEDS: oxyCODONE HCL IR 5 MG TAB (IMMEDIATE RELEASE) PO SCH (21:06)
[2024-03-27 07:29] LABS: Hematocrit (blood only) 38.7 % (37.0-47.0); Hemoglobin 13.4 g/dl (12.0-16.0); Mean Corpuscular Hemoglobin 33.6 pg (25.0-34.0); Mean Corpuscular Hgb Conc 34.6 g/dL (32.0-36.0); Mean Platelet Volume 8.1 fL (9.4-12.4); Platelet Count 90 K/uL (130-400); RDW Coefficient of Variation 13.2 % (11.5-14.5); RDW Standard Deviation 47.1 fL (36.4-46.3); Red Blood Count 3.99 M/uL (4.20-5.40); White Blood Count 1.84 K/ul (4.8-10.8)
[2024-03-27 07:56] LABS: Basophils # (auto) 0.01 K/uL (0.00-0.20); Basophils % (auto) 0.5 %; Eosinophils # (auto) 0.05 K/uL (0.00-0.50); Eosinophils % (auto) 2.7 %; Immature Granulocytes # (auto) 0.01 K/uL (0.01-0.20); Immature Granulocytes % (auto) 0.5 %; Lymphocytes # (auto) 0.75 K/uL (1.20-3.40); Lymphocytes % (auto) 40.8 %; Monocytes # (auto) 0.28 K/uL (0.11-0.59); Monocytes % (auto) 15.2 %; Neutrophils # (auto) 0.74 K/uL (1.40-6.50); Neutrophils % (auto) 40.3 %; Polychromasia 1+; Tear Drop Cells 1+
[2024-03-27 08:26] LABS: BUN Creatinine Ratio 8.8 (10-20); Calcium 9.1 mg/dl (8.6-10.3); Creatinine Clr Calc Pharmacy 81.4 ml/min; Est GFR (African American) 106.4 ml/min; Est GFR (Non-African American) 91.8 ml/min; Magnesium 1.6 mg/dl (1.7-2.4); Phosphorus 4.3 mg/dl (2.5-4.9); Potassium 3.9 mmol/L (3.5-5.1)
--- NOTE | 2024-03-27 09:35 | Orthopedic Consultation ---
Date of Consultation March 27, 2024 Assessment & Plan (1) Spinal stenosis of lumbar region: Assessment lumbar spinal stenosis. Plan MRI lumbar spine performed at the hospital demonstrates evidence of severe spinal stenosis L4-L5 with hints of anterolisthesis L3-L4. At this point the patient was not seen. She is currently neutropenic has multiple medical issues and clearly not a surgical candidate at this time. History of Present Illness Reason for Consultation: Leg weakness Attending Physician: Fiona Garibay MD History of Present Illness This is a 64-year-old female with multiple medical issues admitted with additional issue of her leg weakness. She does have known lumbar spinal stenosis which could be contributing factor. Allergies Allergy/AdvReac Type Severity Reaction Status Date / Time aripiprazole AdvReac Severe seizure Verified 03/26/24 02:09 activity per [facility] EMR gabapentin AdvReac Severe Confusion Verified 03/26/24 02:09 acetaminophen AdvReac Unknown per [facility] Verified 03/26/24 02:09 EMR, to be avoided given cirrhosis ibuprofen AdvReac Unknown per [facility] Verified 03/26/24 02:09 EMR to be avoided given cirrhosis Home Medications Medication Instructions Recorded Confirmed Type metoprolol succinate 25 mg 25 mg PO QAM 11/21/21 03/26/24 History tablet,extended release 24 hr rizatriptan 10 mg disintegrating 10 mg PO DIRECTED PRN Migraine 11/21/21 03/26/24 History tablet Headache calcium carbonate 600 mg-vitamin 1 cap PO QAM 08/02/22 03/26/24 History D3 12.5 mcg (500 unit) capsule (Calcium 600 with Vitamin D3) alendronate 35 mg tablet 35 mg PO WK 04/20/23 03/26/24 History buspirone 30 mg tablet 30 mg PO BID 04/20/23 03/26/24 History diazepam 5 mg tablet 5 mg PO DAILY PRN Anxiety 04/20/23 03/26/24 History multivitamin-ferrous 1 tab PO QAM 04/20/23 03/26/24 History fumarate-folic acid 18 mg-400 mcg tablet (Centrum Women) omeprazole 40 mg capsule,delayed 40 mg PO DAILY PRN gerd 04/20/23 03/26/24 History release trazodone 150 mg tablet 75 - 150 mg PO HS PRN Sleep 04/20/23 03/26/24 History losartan 25 mg tablet 25 mg PO BID 07/31/23 03/26/24 History nystatin 100,000 unit/gram topical 1 applic topical DAILY PRN Skin 07/31/23 03/26/24 History cream Irritation vortioxetine 20 mg tablet 20 mg PO QAM 07/31/23 03/26/24 History (Trintellix) chlorpheniramine maleate 4 mg 4 mg PO Q12H 30 days #60 tabs 12/15/23 03/26/24 Rx tablet (Allergy Relief (chlorpheniramine)) pseudoephedrine HCl 120 mg 120 mg PO BID 30 days #60 tabs 12/15/23 03/26/24 Rx tablet,extended release (Sudafed 12 Hour) clotrimazole 2 % vaginal cream 1 appful topical ONCE #21 grams 01/02/24 03/26/24 Rx solifenacin 5 mg tablet (Vesicare) 5 mg PO QAM 03/01/24 03/26/24 History fluticasone propionate 50 1 spray intranasal BID PRN 03/26/24 03/26/24 History mcg/actuation nasal Congestion spray,suspension Patient History Medical History (Updated 03/26/24 @ 03:39 by Timmy Bruno MD) Difficult airway for intubation limited cervical spine extension; s/p cervical spinal fusion Lumbar facet joint syndrome Lumbar spondylosis Hx of falling last fall over 1 year ago per patient Hx of gastritis patient denies recent flare Hx of encephalopathy COPD (chronic obstructive pulmonary disease) pt. denies History of alcoholism (2021) quit 2021 (drank 6 beers/day) Hx of tinnitus Hx of migraines Pulmonary hypertension Echo 09/2019: "Moderate pulmonary hypertension"/Estimated PASP 51mmhg, assuming RAP of 3mmhg Seasonal allergies Thrombocytopenia Chronic Chronic hyponatremia Non-ischemic cardiomyopathy EF 35-40% in 2018, 60-65% in 2020 Hx of chronic pancreatitis Per records, patient denies History of anemia Chronic pain disorder back Depression Positive ROSANGELA (antinuclear antibody) Stress incontinence Chronic cough Follows with [facility] pulm - pt. reports due to pollen and states has nearly resolved in recent months Hx of hepatitis C (1979) Late 1980s, treated HTN (hypertension) controlled, stable per pt Cirrhosis lost to f/u with [facility] History of subdural hematoma (2010) 2010 Osteoarthritis History of seizure (2010) Following subdural hematoma 2010 from fall No issues since per patient-last episode 1 year ago [place] [facility] [place] Surgical History Hx of blepharoplasty (01/2024) History of craniotomy (2010) Due to subdural hematoma from fall Hx of hysterectomy Hx of cholecystectomy History of carpal tunnel release right Hx of arthroscopy of shoulder right Hx of arthroscopy of left knee S/P cervical spinal fusion unsure of level, full ROM History of onel hole surgery (2010) lead to craniotomy History of esophagogastroduodenoscopy (EGD) History of colonoscopy Family History Mother Hypertension Other No family history of adverse response to anesthesia Social History Smoking Status: Former smoker Tobacco Type: Cigarettes Age Started Using Tobacco: 18; Age Quit Using Tobacco: 30; packs per day: 1; Second Hand Exposure: No; Do You Dip or Chew Tobacco: No; Hx Alcohol Use: No Hx Substance Use: No Preferred Language: Malay Communication Ability: Effective Java Technical Architect Required: No Beliefs That Will Affect Care: None marital status: Single Current Living Situation: Spouse Current Living Situation Comment: lives with current occupational status: unemployed How many Children do You have: 0 Feels Safe at Home: Yes Assistive Devices: Cane, Stair Lift and Walker Physical Exam Physical Exam: Patient is currently neutropenic and was not seen today. Results & Data Vital Signs (Past 12 Hours) Vital Signs Temp Pulse Pulse Resp BP Pulse Ox O2 Del Method 03/27/24 07:21 36.5 C 67 18 138/82 98 Room Air 03/27/24 07:00 62 03/27/24 03:15 36.6 C 79 20 122/82 94 Room Air 03/26/24 23:29 36.8 C 66 20 121/79 93 Room Air 03/26/24 22:01 63
[2024-03-27] MEDS: diazePAM 5 MG TABLET PO PRN (13:20)
--- NOTE | 2024-03-27 14:37 | Hospitalist Progress Note ---
Date of Service March 27, 2024 Assessment & Plan (1) Spinal stenosis of lumbar region: (2) Hyponatremia with decreased serum osmolality: (3) Anxiety and depression: (4) Neutropenia: Plan: (1) Spinal stenosis of lumbar region: Plan: - CT scan notes severe spinal canal stenosis at L3-4 and L4-5 - MRI lumbar spine 03/26 showed advanced disk degeneration L4-L5, moderate disk degeneration at L3-L4, and mild degeneration at L1-L2. Mild subarticular recess stenosis and L1-L2 and severe stenosis at L4-L5 with impingement on L5 nerve roots. recommend surgical consult for decompression - Orthopedic surgery consulted, recommend against surgery bc of extensive medical history and new neutropenia - Pain regimen: Tylenol 500 mg PO prn and oxycodone 5 mg PO TID (2) Hyponatremia with decreased serum osmolality: Plan: - Sec to excess free water intake d/t dry mouth/SIADH - On admission Sodium 124 8/8, Now resolved. - Continue Fluid restriction 1200 mL. - Hold salt tablet. - Holding chlorpheniramine maleate and vortioxetine - Continue monitoring electrolytes (3) Anxiety and depression: Plan: - Continue buspirone 30 mg PO BID - Diazepam 5 mg PO TID - Trazodone 150 mg PO HS (4) Neutropenia: Plan: - Patient presenting with neutropenia with neutrophil count of 0.74 K/uL - Patients vitals stable, etiology unclear - Hematology consulted, appreciate recs Admission and Anticipated Discharge Date Admission Date: March 26, 2024 Supervising Physician Co-Signing Physician Notes Attending Physician Supervision Note: I independently interviewed and examined the patient and verified the rachel history and physical, reviewed labs and image studies and agree with findings and care plan noted above. Generalized weakness - likely multifactorial - Hyponatremia and Nerve compression leading to ambulatory dysfunction. Hyponatremia - excess water intake d/t dry mouth and medication in setting of cirrhosis. Resolved. d/c salt tablets. Consider slowly resuming chlorpheniramine maleate, Solifenacin, and vortioxetine. Continue water restriction. Critical nerve compression - Per spine surgery - Not medically fit for surgery and now with neutropenia. Continue pain control Diazepam will help with muscle relaxation. Reviewed Cardio and Pul Preop clearance notes - Normal stress test. Echo with Normal EF, Mildly dilated RV, RVSP 31. CT chest - 02/20/24 - Normal. -Consider cardio/pul input regarding any further input pending Heme evaluation. Reports not being able to participate in PT d/t pain. Cytopenia of 2 cell lines - likely from cirrhosis. platelet 90k, ANC 700. Heme consulted. Loose stools - Ordered stool for PCR and C diff testing. Cirrhosis - MELD around 10. Anxiety/depression - continue home meds SCD Subjective Nury Rivas is a 64-year-old female with a past medical history including myofascial pain syndrome, episodes of speech arrest, lumbar facet joint syndrome, ROSANGELA, liver cirrhosis, depression, chronic hyponatremia, status post cervical spinal fusion, history of craniotomy, COPD, alcoholism, cryptitis, severe pulmonary artery hypertension, nonischemic cardiomyopathy, and seizure disorder. The patient presented to the [facility] ED with 8 months of generalized weakness, with acute falls and persistent low back pain, all of which have worsened over the past 2 weeks, with weakness being her major concern. The patient fell twice 8/8 before being admitted. In the ED, the patient underwent a head CT that did not show any acute intracranial pathology and a lumbar spine CT that showed critical spinal stenosis at L3-L4 and L4-L5 Today the patient denies fevers chills, headache, nausea, vomiting, chest pain/tightness/palpitations, SOB, cough, wheeze, edema, hematochezia/melena. She does endorse diarrhea, loss of appetite, weakness. She believes her falls have been due to her osteoarthritis, lumbar pain, and SI joint pain. She describes that when she is ambulating or standing for short periods of time her legs burn causing her to lose balance. Patient does endorse dry mouth and has been drinking liquids frequently likely contributing to her hyponatremia and hypoosmolality. Patient endorses 5/10 pain at rest that increases to 7-8/10 when standing and walking. Physical Exam Physical Exam: General: patient resting comfortably, NAD, non-toxic in appearance, answers questions appropriately. Skin: warm, dry, intact HEENT: NC/AT, anicteric sclera, conjunctiva without injection, moist mucus membranes. Heart: +S1/S2, regular, no m/r/g Lungs: equal air entry bilaterally, no rales/rhonchi/wheezes Abd: +BS, soft, NT/ND Ext: warm, no clubbing/cyanosis or edema Neuro: nonfocal, speech intact, no facial droop, moving all extremities. Results & Data Results & Data Vital Signs (Past 12 Hours) Vital Signs Temp Pulse Pulse Resp BP Pulse Ox O2 Del Method 03/27/24 08:25 77 03/27/24 08:00 Room Air 03/27/24 07:21 36.5 C 67 18 138/82 98 Room Air 03/27/24 07:00 62 03/27/24 03:15 36.6 C 79 20 122/82 94 Room Air Resident Activity Tracking Resident Involvement: Resident Care Provided Care Provided: Adult Hospital Medicine (1) Spinal stenosis of lumbar region Neurogenic claudication status: unspecified Qualified Code(s): M48.061 - Spinal stenosis, lumbar region without neurogenic claudication (4) Neutropenia Neutropenia type: unspecified Qualified Code(s): D70.9 - Neutropenia, unspecified
[2024-03-27] MEDS: traZODone HCL 50 MG TAB PO PRN (20:28)
[2024-03-27 21:43] LABS: Adenovirus F 40/41 PCR Not Detected (NotDetected); Astrovirus PCR Not Detected (NotDetected); Campylobacter PCR Not Detected (NotDetected); Cryptosporidium PCR Not Detected (NotDetected); Cyclospora cayetanensis PCR Not Detected (NotDetected); Entamoeba histolytica PCR Not Detected (NotDetected); Enteroaggregative E.coli(EAEC) Not Detected (NotDetected); Enteropathogenic E.coli (EPEC) Not Detected (NotDetected); Enterotoxigenic E.coli (ETEC) Not Detected (NotDetected); Giardia lamblia PCR Not Detected (NotDetected); Plesiomonas shigelloides PCR Not Detected (NotDetected); Rotavirus A PCR Not Detected (NotDetected); Salmonella PCR Not Detected (NotDetected); Sapovirus PCR Not Detected (NotDetected); Shiga-like Toxin E.coli (STEC) Not Detected (NotDetected); Shigella/Enteroinvasive E.coli Not Detected (NotDetected); Vibrio cholerae PCR Not Detected (NotDetected); Vibrio species PCR Not Detected (NotDetected); Yersinia enterocolitica PCR Not Detected (NotDetected)
[2024-03-27 22:00] LABS: Norovirus GI/GII PCR DETECTED (NotDetected)
[2024-03-28 06:34] LABS: Albumin Level 3.6 gm/dl (3.4-5.0); BUN Creatinine Ratio 8.5 (10-20); Calcium 8.4 mg/dl (8.6-10.3); Creatinine Clr Calc Pharmacy 93.8 ml/min; Est GFR (African American) 111.5 ml/min; Est GFR (Non-African American) 96.2 ml/min; Magnesium 1.5 mg/dl (1.7-2.4); Phosphorus 4.2 mg/dl (2.5-4.9); Potassium 4.3 mmol/L (3.5-5.1)
[2024-03-28 07:19] LABS: Basophils # (auto) 0.01 K/uL (0.00-0.20); Basophils % (auto) 0.4 %; Eosinophils # (auto) 0.06 K/uL (0.00-0.50); Eosinophils % (auto) 2.7 %; Hematocrit (blood only) 34.9 % (37.0-47.0); Lymphocytes # (auto) 0.69 K/uL (1.20-3.40); Lymphocytes % (auto) 30.8 %; Mean Corpuscular Hemoglobin 33.5 pg (25.0-34.0); Mean Corpuscular Hgb Conc 34.4 g/dL (32.0-36.0); Mean Corpuscular Volume 97.5 fL (80.0-100.0); Mean Platelet Volume 7.8 fL (9.4-12.4); Monocytes # (auto) 0.35 K/uL (0.11-0.59); Monocytes % (auto) 15.6 %; Neutrophils # (auto) 1.13 K/uL (1.40-6.50); Neutrophils % (auto) 50.5 %; Platelet Count 88 K/uL (130-400); RDW Coefficient of Variation 12.9 % (11.5-14.5); RDW Standard Deviation 46.1 fL (36.4-46.3); Red Blood Count 3.58 M/uL (4.20-5.40); White Blood Count 2.24 K/ul (4.8-10.8)
[2024-03-28] MEDS ORDERED: ALENDRONATE SODIUM 70 MG TAB PO SCH (08:00)
[2024-03-28] MEDS: ALENDRONATE SODIUM 70 MG TAB PO SCH (08:10)
[2024-03-28] MEDS: SODIUM CHLORIDE 1 GM TABLET PO SCH ×2 (09:23→20:26)
[2024-03-28] MEDS: MAGNESIUM SULFATE / D5W 1 GM/100 ML BAG IV SCH (09:23)
--- NOTE | 2024-03-28 11:16 | Hospitalist Progress Note ---
Date of Service March 28, 2024 Assessment & Plan (1) Spinal stenosis of lumbar region: Plan: - CT scan notes severe spinal canal stenosis at L3-4 and L4-5 - MRI lumbar spine 03/26 showed advanced disk degeneration L4-L5, moderate disk degeneration at L3-L4, and mild degeneration at L1-L2. Mild subarticular recess stenosis and L1-L2 and severe stenosis at L4-L5 with impingement on L5 nerve roots. recommend surgical consult for decompression - Orthopedic surgery consulted, recommend against surgery bc of extensive medical history and new neutropenia - Pain regimen: Tylenol 500 mg PO prn and oxycodone 5 mg PO TID PRN (2) Hyponatremia with decreased serum osmolality: Plan: - Secondary to excess free water intake d/t dry mouth/SIADH - Sodium level 124 (03/25) -> 134 (03/28) - Patient using sodium 1g tablets to replenish levels - Fluid restriction 1200 mL - Hold chlorpheniramine maleate and vortioxetine - Continue monitoring electrolytes (3) Diarrhea: Plan: - Patient has had diarrhea since admit - Stool PCR positive for norovirus - Monitor fluids and electrolytes; supportive care (4) Neutropenia: Plan: - Neutrophil count of 0.74 K/uL 03/27 improved to 1.13K/uL 03/28 - Patients vitals stable, etiology unclear - Hematology consulted, appreciate recs (5) Anxiety and depression: Plan: - Continue buspirone 30 mg PO BID - Diazepam 5 mg PO TID - Trazodone 150 mg PO HS Admission and Anticipated Discharge Date Admission Date: March 26, 2024 Supervising Physician Co-Signing Physician Notes Attending Physician Supervision Note: I independently interviewed and examined the patient and verified the rachel history and physical, reviewed labs and image studies and agree with findings and care plan noted above. Generalized weakness - likely multifactorial - Hyponatremia and Nerve compression leading to ambulatory dysfunction, noravirus infection. Hyponatremia - Chronic. Takes salt tabs at home. Recent exacerbation ? sec to excess water intake d/t dry mouth from meds, worsening of diarrhea from noravirus infection . Continue salt tabs. Slowly resume chlorpheniramine maleate, Solifenacin. Continue water restriction. Critical nerve compression - Per spine surgery - Not medically fit for surgery. Neutropenic on 03/27. Continue pain control Diazepam will help with muscle relaxation. Outpatient Preop notes - -Reviewed Cardio and Pul Preop clearance notes - Normal stress test. Echo with Normal EF, Mildly dilated RV, RVSP 31. CT chest - 02/20/24 - Normal. -Consider cardio/pul input regarding any further input pending Heme evaluation. -Reviewed Neuro consult from 2022 and 12/2023 visit- recommended keppra for partial seizure but she has declined Reports not being able to participate in PT d/t pain. Cytopenia of 2 cell lines - likely from cirrhosis. platelet 88k, ANC >1k. Heme consulted. Noravirus infection in setting of chronic h/o diarrhea - supportive care. Cirrhosis - MELD around 10. H/o Post traumatic seizure (2010) and recent concern of partial seizure - has declined going on keppra recommended by neuro. Anxiety/depression - continue home meds SCD Subjective Today Nury endorses feeling better than yesterday, the patient's pain has been bothering her but has been more controlled. the patient denies fevers chills, headache, nausea, vomiting, chest pain/tightness/palpitations, SOB, cough, wheeze, edema, hematochezia/melena. She does mention a history of chronic diarrhea that has been going on and off since August of this year. She describes that when she is ambulating or standing for short periods of time her legs burn causing her pain and loss of balance. Patient does endorse ongoing dry mouth, and has been fluid restricted to help improve her electrolyte balance. Physical Exam Physical Exam: General: patient resting comfortably, NAD, non-toxic in appearance, answers questions appropriately. Skin: warm, dry, intact HEENT: NC/AT, anicteric sclera, conjunctiva without injection, moist mucus membranes. Heart: +S1/S2, regular, no m/r/g Lungs: equal air entry bilaterally, no rales/rhonchi/wheezes Abd: +BS, soft, NT/ND Ext: warm, no clubbing/cyanosis or edema Neuro: nonfocal, speech intact, no facial droop, moving all extremities. Results & Data Results & Data Vital Signs (Past 12 Hours) Vital Signs Temp Pulse Pulse Resp BP Pulse Ox O2 Del Method 03/28/24 09:33 Room Air 03/28/24 08:00 36.5 C 71 16 131/77 97 Room Air 03/28/24 07:30 65 08/11/24 03:24 36.5 C 69 16 131/81 95 Room Air 03/27/24 23:57 36.4 C L 66 16 119/76 93 Room Air Resident Activity Tracking Resident Involvement: Resident Care Provided Care Provided: Adult Hospital Medicine (1) Spinal stenosis of lumbar region Neurogenic claudication status: unspecified Qualified Code(s): M48.061 - Spinal stenosis, lumbar region without neurogenic claudication (3) Diarrhea Diarrhea type: unspecified type Qualified Code(s): R19.7 - Diarrhea, unspecified (4) Neutropenia Neutropenia type: unspecified Qualified Code(s): D70.9 - Neutropenia, unspecified
--- NOTE | 2024-03-28 17:34 | Oncology Consultation ---
Date of Consultation March 28, 2024 Assessment & Plan (1) Neutropenia: the patient has mild to moderate neutropenia which has been persistent over the last 4 years, on outpatient evaluation it is thought to be because of patient's previously diagnosed cirrhosis of liver secondary to alcohol abuse and hepatitis C. The patient has never had invasive testing done such as bone marrow biopsy. I reviewed the last workup including B12, iron indicis which are all within normal limits. Peripheral smear did not show any evidence of circulating blast. It is highly likely that the patient's leukopenia is related to cirrhosis of the liver however in the absence of splenomegaly we should entertain other differential diagnosis such as MDS as well given the patient's age of 64. I would consider MDS as a differential in this patient as neutropenia secondary to cirrhosis of liver is a diagnosis of exclusion. Keeping this in mind we can consider a bone marrow biopsy for this patient with mild to moderate neutropenia with cirrhosis of the liver to rule out MDS. (2) Thrombocytopenia: Again the patient's mild to moderate thrombocytopenia may be result of alcoholic cirrhosis and her other medical comorbidities however unless noted to be to a bone marrow biopsy I cannot be certain of the diagnosis as that may be a diagnosis of exclusion. As far as platelet count goes the patient does not need active hematological intervention such as steroids or thrombopoietin growth factors as the platelet count is consistently above 50,000/mcL. She is safe to undergo most surgical procedures including complex neurosurgical procedures. Transfuse platelets if platelet count is less than 10,000/mcL or if the patient is actively bleeding. Plan Thank you for this interesting hematological consult. Total of 60 minutes were spent in counseling, coordination of care, review of prior records. Hematology will continue to follow the patient and make appropriate recommendations. History of Present Illness Reason for Consultation: Bicytopenia; neutropenia thrombocytopenia Attending Physician: Fiona Garibay MD History of Present Illness the patient is a very pleasant 64-year-old woman with a past history ofr alcohol use disorder, COPD, pulmonary artery hypertension, alcoholic cardiomyopathy, chronic pancreatitis, seizure disorder, chronic hyponatremia, HCV s/p treatment, past tobacco abuse was initially evaluated at [facility] 08/23/2022 for pancytopenia. she is being evaluated by one of my colleagues Maude Pack PA-C. Over the last 8 months the patient has noticed progressive weakness, fatigue, tiredness. She was noted to be again pancytopenic in the hospital and hematology's been consulted to assist in management of this patient with mild to moderate neutropenia and thrombocytopenia. Of note the patient does have a history of cirrhosis thought to be because of previously diagnosed hepatitis C, alcohol abuse. I reviewed the last CT scan there is no evidence of splenomegaly. The patient has had neutropenia and thrombocytopenia going back to 2019. Currently the patient continues to feel fatigued and tired, her symptoms have been progressive over the past several months. Allergies Allergy/AdvReac Type Severity Reaction Status Date / Time aripiprazole AdvReac Severe seizure Verified 03/26/24 02:09 activity per S EMR gabapentin AdvReac Severe Confusion Verified 03/26/24 02:09 acetaminophen AdvReac Unknown per [facility] Verified 03/26/24 02:09 EMR, to be avoided given cirrhosis ibuprofen AdvReac Unknown per S Verified 03/26/24 02:09 EMR to be avoided given cirrhosis Home Medications Medication Instructions Recorded Confirmed Type metoprolol succinate 25 mg 25 mg PO QAM 11/21/21 03/26/24 History tablet,extended release 24 hr rizatriptan 10 mg disintegrating 10 mg PO DIRECTED PRN Migraine 11/21/21 03/26/24 History tablet Headache calcium carbonate 600 mg-vitamin 1 cap PO QAM 08/02/22 03/26/24 History D3 12.5 mcg (500 unit) capsule (Calcium 600 with Vitamin D3) alendronate 35 mg tablet 35 mg PO WK 04/20/23 03/26/24 History buspirone 30 mg tablet 30 mg PO BID 04/20/23 03/26/24 History diazepam 5 mg tablet 5 mg PO DAILY PRN Anxiety 04/20/23 03/26/24 History multivitamin-ferrous 1 tab PO QAM 04/20/23 03/26/24 History fumarate-folic acid 18 mg-400 mcg tablet (Centrum Women) omeprazole 40 mg capsule,delayed 40 mg PO DAILY PRN gerd 04/20/23 03/26/24 History release trazodone 150 mg tablet 75 - 150 mg PO HS PRN Sleep 04/20/23 03/26/24 History losartan 25 mg tablet 25 mg PO BID 07/31/23 03/26/24 History nystatin 100,000 unit/gram topical 1 applic topical DAILY PRN Skin 07/31/23 03/26/24 History cream Irritation vortioxetine 20 mg tablet 20 mg PO QAM 07/31/23 03/26/24 History (Trintellix) chlorpheniramine maleate 4 mg 4 mg PO Q12H 30 days #60 tabs 12/15/23 03/26/24 Rx tablet (Allergy Relief (chlorpheniramine)) pseudoephedrine HCl 120 mg 120 mg PO BID 30 days #60 tabs 12/15/23 03/26/24 Rx tablet,extended release (Sudafed 12 Hour) clotrimazole 2 % vaginal cream 1 appful topical ONCE #21 grams 01/02/24 03/26/24 Rx solifenacin 5 mg tablet (Vesicare) 5 mg PO QAM 03/01/24 03/26/24 History fluticasone propionate 50 1 spray intranasal BID PRN 03/26/24 03/26/24 History mcg/actuation nasal Congestion spray,suspension Patient History Medical History (Updated 03/28/24 @ 11:14 by David Hickman DO) Difficult airway for intubation limited cervical spine extension; s/p cervical spinal fusion Lumbar facet joint syndrome Lumbar spondylosis Hx of falling last fall over 1 year ago per patient Hx of gastritis patient denies recent flare Hx of encephalopathy COPD (chronic obstructive pulmonary disease) pt. denies History of alcoholism (2021) quit 2021 (drank 6 beers/day) Hx of tinnitus Hx of migraines Pulmonary hypertension Echo 09/2019: "Moderate pulmonary hypertension"/Estimated PASP 51mmhg, assuming RAP of 3mmhg Seasonal allergies Thrombocytopenia Chronic Chronic hyponatremia Non-ischemic cardiomyopathy EF 35-40% in 2018, 60-65% in 2020 Hx of chronic pancreatitis Per records, patient denies History of anemia Chronic pain disorder back Depression Positive ROSANGELA (antinuclear antibody) Stress incontinence Chronic cough Follows with [facility] [place] pulm - pt. reports due to pollen and states has nearly resolved in recent months Hx of hepatitis C (1979) Late 1980s, treated HTN (hypertension) controlled, stable per pt Cirrhosis lost to f/u with [facility] History of subdural hematoma (2010) 2010 Osteoarthritis History of seizure (2010) Following subdural hematoma 2010 from fall No issues since per patient-last episode 1 year ago Follows with [facility] neurology Surgical History Hx of blepharoplasty (01/2024) History of craniotomy (2010) Due to subdural hematoma from fall Hx of hysterectomy Hx of cholecystectomy History of carpal tunnel release right Hx of arthroscopy of shoulder right Hx of arthroscopy of left knee S/P cervical spinal fusion unsure of level, full ROM History of onel hole surgery (2010) lead to craniotomy History of esophagogastroduodenoscopy (EGD) History of colonoscopy Family History Mother Hypertension Other No family history of adverse response to anesthesia Social History Smoking Status: Former smoker Tobacco Type: Cigarettes Age Started Using Tobacco: 18; Age Quit Using Tobacco: 30; packs per day: 1; Second Hand Exposure: No; Do You Dip or Chew Tobacco: No; Hx Alcohol Use: No Hx Substance Use: No Preferred Language: Arabic Communication Ability: Effective Procurement Assistant Required: No Beliefs That Will Affect Care: None marital status: Single Current Living Situation: Spouse Current Living Situation Comment: lives with current occupational status: unemployed How many Children do You have: 0 Feels Safe at Home: Yes Assistive Devices: Cane, Stair Lift and Walker Review of Systems Review of Systems: Weakness, fatigue, tiredness Constitutional: as per Subjective / HPI, + fatigue and + malaise Eyes: as per Subjective / HPI Ear, Nose, Mouth, Throat: as per Subjective / HPI Respiratory: as per Subjective / HPI Cardiovascular: as per Subjective / HPI Gastrointestinal: as per Subjective / HPI Genitourinary: as per Subjective / HPI Musculoskeletal: as per Subjective / HPI Integumentary: as per Subjective / HPI Neurologic: as per Subjective / HPI Psychiatric: as per Subjective / HPI Endocrine: as per Subjective / HPI Hematologic / Lymphatic: as per Subjective / HPI Allergy / Immunological: as per Subjective / HPI Physical Exam Constitutional: WD/WN, vitals as above Eyes: PERRL, conjunctivae normal, anicteric sclerae ENMT: external ear and nose normal, oropharynx normal Neck: trachea midline, no thyromegaly Respiratory: normal respiratory effort, lungs clear to auscultation Cardiovascular: RRR, no murmur, no edema Gastrointestinal (Abdomen): normal bowel sounds, soft, nontender, no hepatosplenomegaly Musculoskeletal: no cyanosis or clubbing, extremities motor strength 5/5 Skin: no rashes, warm and dry Neurologic: patellar DTR's 2+ bilat, sensation intact Psychiatric: A+Ox3, euthymic affect Genitourinary: no vaginal lesions, no adnexal mass Lymphatic: no cervical or axillary lymphadenopathy Results & Data Vital Signs (Past 12 Hours) Vital Signs Temp Pulse Pulse Resp BP Pulse Ox O2 Del Method 03/28/24 16:08 36.5 C 68 16 111/72 96 Room Air 03/28/24 13:45 69 03/28/24 11:49 36.6 C 61 16 110/68 95 Room Air 03/28/24 09:33 Room Air 03/28/24 08:00 36.5 C 71 16 131/77 97 Room Air 03/28/24 07:30 65 (1) Neutropenia Neutropenia type: unspecified Qualified Code(s): D70.9 - Neutropenia, unspecified
[2024-03-28] MEDS: oxyCODONE HCL IR 5 MG TAB (IMMEDIATE RELEASE) PO PRN (17:49)
[2024-03-28] MEDS: ACETAMINOPHEN 500 MG TAB PO PRN (22:32)
[2024-03-28 23:33] VITALS: RESP 16
[2024-03-29 07:43] LABS: Hematocrit (blood only) 36.2 % (37.0-47.0); Hemoglobin 12.3 g/dl (12.0-16.0); Mean Corpuscular Hemoglobin 33.2 pg (25.0-34.0); Mean Corpuscular Volume 97.8 fL (80.0-100.0); Mean Platelet Volume 7.9 fL (9.4-12.4); Platelet Count 96 K/uL (130-400); RDW Coefficient of Variation 13.2 % (11.5-14.5); RDW Standard Deviation 47.5 fL (36.4-46.3); White Blood Count 1.99 K/ul (4.8-10.8)
[2024-03-29 08:21] VITALS: TEMP 97.9; O2SAT 96
[2024-03-29 11:33] VITALS: BP 106/72
--- NOTE | 2024-03-29 13:55 | Discharge Summary ---
Date of Service March 29, 2024 Admission HPI Per Admitting Provider The patient is a 64-year-old female with a past medical history including myofascial pain syndrome, episodes of speech arrest, lumbar facet joint syndrome, ROSANGELA, liver cirrhosis, depression, chronic hyponatremia, status post cervical spinal fusion, history of craniotomy, COPD, alcoholism, cryptitis severe pulmonary artery hypertension, nonischemic cardiomyopathy, and seizure disorder. The patient presents to the emergency department with 8 months of symptoms as noted above, that worsened over the past 2 weeks, with her most significant concern of generalized weakness Principal Diagnosis hyponatremia, weakness, intermittent falling Discharge Exam General: patient resting comfortably, NAD, non-toxic in appearance, answers questions appropriately. Skin: warm, dry, intact HEENT: NC/AT, anicteric sclera, conjunctiva without injection, moist mucus m embranes. Heart: +S1/S2, regular, no m/r/g Lungs: equal air entry bilaterally, no rales/rhonchi/wheezes Abd: +BS, soft, NT/ND Ext: warm, no clubbing/cyanosis or edema Neuro: nonfocal, speech intact, no facial droop, moving all extremities. Discharge Data Allergies Allergy/AdvReac Type Severity Reaction Status Date / Time aripiprazole AdvReac Severe seizure Verified 03/26/24 02:09 activity per [facility] EMR gabapentin AdvReac Severe Confusion Verified 03/26/24 02:09 acetaminophen AdvReac Unknown per [facility] Verified 03/26/24 02:09 EMR, to be avoided given cirrhosis ibuprofen AdvReac Unknown per [facility] Verified 03/26/24 02:09 EMR to be avoided given cirrhosis Consultations 03/26/24 01:29 ED Decision to Admit Stat 03/26/24 03:45 Consult Orthopedic Spine Surgery Routine 03/27/24 10:05 Consult Hematology Routine Ordered Studies 03/25/24 20:18 CT head/brain wo con Stat CT lumbar spine wo con Stat 03/26/24 01:13 MR lumbar spine wo con Stat Laboratory Results WBC 1.99 K/ul (4.8-10.8) L 03/29/24 07:11 RBC 3.70 M/uL (4.20-5.40) L 03/29/24 07:11 Hgb 12.3 g/dl (12.0-16.0) 03/29/24 07:11 Hct 36.2 % (37.0-47.0) L 03/29/24 07:11 MCV 97.8 fL (80.0-100.0) 03/29/24 07:11 MCH 33.2 pg (25.0-34.0) 03/29/24 07:11 MCHC 34.0 g/dL (32.0-36.0) 03/29/24 07:11 RDW Std Deviation 47.5 fL (36.4-46.3) H 03/29/24 07:11 RDW Coeff of [place] 13.2 % (11.5-14.5) 03/29/24 07:11 Plt Count 96 K/uL (130-400) L 03/29/24 07:11 MPV 7.9 fL (9.4-12.4) L 03/29/24 07:11 Immature Gran % (Auto) 0.0 % 03/28/24 06:29 Neut % (Auto) 50.5 % 03/28/24 06:29 Lymph % (Auto) 30.8 % 03/28/24 06:29 Desha % (Auto) 15.6 % 03/28/24 06:29 Eos % (Auto) 2.7 % 03/28/24 06:29 Baso % (Auto) 0.4 % 03/28/24 06:29 Neut # (Auto) 1.13 K/uL (1.40-6.50) L 03/28/24 06:29 Lymph # (Auto) 0.69 K/uL (1.20-3.40) L 03/28/24 06:29 Desha # (Auto) 0.35 K/uL (0.11-0.59) 03/28/24 06:29 Eos # (Auto) 0.06 K/uL (0.00-0.50) 03/28/24 06:29 Baso # (Auto) 0.01 K/uL (0.00-0.20) 03/28/24 06:29 Immature Gran # (Auto) 0.00 K/uL (0.01-0.20) L 03/28/24 06:29 Absolute Nucleated RBC Cancelled 03/28/24 05:44 Nucleated RBC % (auto) Cancelled 03/28/24 05:44 Neutrophils % (Manual) Cancelled 03/28/24 05:44 Band Neutrophils % Cancelled 03/28/24 05:44 Lymphocytes % (Manual) Cancelled 03/28/24 05:44 Prolymphocyte % Cancelled 03/28/24 05:44 Reactive Lymphs % (Man) Cancelled 03/28/24 05:44 Monocytes % (Manual) Cancelled 03/28/24 05:44 Eosinophils % (Manual) Cancelled 03/28/24 05:44 Basophils % (Manual) Cancelled 03/28/24 05:44 Metamyelocytes % (Man) Cancelled 03/28/24 05:44 Myelocytes % (Man) Cancelled 03/28/24 05:44 Promyelocytes % (Man) Cancelled 03/28/24 05:44 Blast Cells % (Manual) Cancelled 03/28/24 05:44 Plasma Cell % (Manual) Cancelled 03/28/24 05:44 Other Cells % Cancelled 03/28/24 05:44 Nucleated RBC % Cancelled 03/28/24 05:44 Neutrophils # (Manual) Cancelled 03/28/24 05:44 Band Neutrophils # Cancelled 03/28/24 05:44 Total Absolute Neuts Cancelled 03/28/24 05:44 Lymphocytes # (Manual) Cancelled 03/28/24 05:44 Prolymphocyte # Cancelled 03/28/24 05:44 Reactive Lymphs # Cancelled 03/28/24 05:44 Total Abs Lymphocytes Cancelled 03/28/24 05:44 Monocytes # (Manual) Cancelled 03/28/24 05:44 Eosinophils # (Manual) Cancelled 03/28/24 05:44 Basophils # (Manual) Cancelled 03/28/24 05:44 Metamyelocytes # (Man) Cancelled 03/28/24 05:44 Myelocytes # (Manual) Cancelled 03/28/24 05:44 Promyelocytes # (Man) Cancelled 03/28/24 05:44 Blast Cells # (Man) Cancelled 03/28/24 05:44 Plasma Cell # (Manual) Cancelled 03/28/24 05:44 Other Cells # Cancelled 03/28/24 05:44 Nucleated RBCs # (Man) Cancelled 03/28/24 05:44 Hypersegmented Neuts Cancelled 03/28/24 05:44 Hyposegmented Neuts Cancelled 03/28/24 05:44 Hypogranular Neuts Cancelled 03/28/24 05:44 Large Granular Lymphs Cancelled 03/28/24 05:44 # Lrg Granular Lymphs Cancelled 03/28/24 05:44 Hairy Cells Cancelled 03/28/24 05:44 Smudge Cells Cancelled 03/28/24 05:44 Toxic Granulation Cancelled 03/28/24 05:44 Toxic Vacuolation Cancelled 03/28/24 05:44 Dohle Bodies Cancelled 03/28/24 05:44 Ysabel Rods Cancelled 03/28/24 05:44 Platelet Estimate Cancelled 03/28/24 05:44 Hypogranular Platelets Cancelled 03/28/24 05:44 Giant Platelets Cancelled 03/28/24 05:44 Platelet Satelliting Cancelled 03/28/24 05:44 RBC Morphology Cancelled 03/28/24 05:44 Polychromasia Cancelled 03/28/24 05:44 Hypochromasia Cancelled 03/28/24 05:44 Poikilocytosis Cancelled 03/28/24 05:44 Basophilic Stippling Cancelled 03/28/24 05:44 Anisocytosis Cancelled 03/28/24 05:44 Microcytosis Cancelled 03/28/24 05:44 Macrocytosis Cancelled 03/28/24 05:44 Spherocytes Cancelled 03/28/24 05:44 Pappenheimer Bodies Cancelled 03/28/24 05:44 Sickle Cells Cancelled 03/28/24 05:44 Target Cells Cancelled 03/28/24 05:44 Tear Drop Cells Cancelled 03/28/24 05:44 Ovalocytes Cancelled 03/28/24 05:44 Stomatocytes Cancelled 03/28/24 05:44 [place] Bodies Cancelled 03/28/24 05:44 Echinocytes Cancelled 03/28/24 05:44 Acanthocytes (Spur) Cancelled 03/28/24 05:44 Rouleaux Cancelled 03/28/24 05:44 RBC Agglutinates Cancelled 03/28/24 05:44 Schistocytes Cancelled 03/28/24 05:44 Sezary Cell Cancelled 03/28/24 05:44 Sodium 134 mmol/L (136-145) L 03/28/24 05:44 Potassium 4.3 mmol/L (3.5-5.1) 03/28/24 05:44 Chloride 101 mmol/L (98-107) 03/28/24 05:44 Carbon Dioxide 27 mmol/L (21-32) 03/28/24 05:44 Anion Gap 6 (3-11) 03/28/24 05:44 BUN 5 mg/dl (6-23) L 03/28/24 05:44 Creatinine 0.59 mg/dl (0.6-1.2) L 03/28/24 05:44 Est Cr Clr Drug Dosing 93.8 ml/min 03/28/24 05:44 Est GFR ( Amer) 111.5 ml/min 03/28/24 05:44 Est GFR (Non-Af Amer) 96.2 ml/min 03/28/24 05:44 BUN/Creatinine Ratio 8.5 (10-20) L 03/28/24 05:44 Glucose 101 mg/dl (70-99(Fasting)) H 03/28/24 05:44 Osmolality 258 mOsm/kg (280-300) L 03/25/24 19:30 Calcium 8.4 mg/dl (8.6-10.3) L 03/28/24 05:44 Phosphorus 4.2 mg/dl (2.5-4.9) 03/28/24 05:44 Magnesium 1.9 mg/dl (1.7-2.4) 03/29/24 07:11 Total Bilirubin 0.6 mg/dl (0.2-1.0) 03/25/24 19:30 AST 18 U/L (13-39) 03/25/24 19:30 ALT 13 U/L (7-52) 03/25/24 19:30 Alkaline Phosphatase 33 U/L (34-104) L 03/25/24 19:30 Total Protein 6.3 gm/dl (6.0-8.3) 03/25/24 19:30 Albumin 3.6 gm/dl (3.4-5.0) 03/28/24 05:44 Globulin 2.3 gm/dl (2.5-4.0) L 03/25/24 19:30 Albumin/Globulin Ratio 1.7 (0.9-2) 03/25/24 19:30 Urine Color Yellow 03/25/24 23:10 Urine Appearance Clear (Clear) 03/25/24 23:10 Urine pH 5.5 (4.5-7.5) 03/25/24 23:10 Ur Specific [place] 1.009 (1.000-1.030) 03/25/24 23:10 Urine Protein Negative (Negative) 03/25/24 23:10 Urine Glucose (UA) Negative (Negative) 03/25/24 23:10 Urine Ketones Negative (Negative) 03/25/24 23:10 Urine Blood Negative (Negative) 03/25/24 23:10 Urine Nitrite Negative (Negative) 03/25/24 23:10 Urine Bilirubin Negative (Negative) 03/25/24 23:10 Urine Urobilinogen Negative (Negative) 03/25/24 23:10 Ur Leukocyte Esterase Negative (Negative) 03/25/24 23:10 Urine Osmolality 187 mOsm/kg (500-800) L 03/25/24 23:10 Stl C. cayetanensis PCR Not Detected (NotDetected) 03/27/24 Unknown Stool Rotavirus A PCR Not Detected (NotDetected) 03/27/24 Unknown Stl Adenov F 40/41 PCR Not Detected (NotDetected) 03/27/24 Unknown Stool Astrovirus (PCR) Not Detected (NotDetected) 03/27/24 Unknown Stool Campylobacter PCR Not Detected (NotDetected) 03/27/24 Unknown Stool Cryptosporidium PCR Not Detected (NotDetected) 03/27/24 Unknown Stl E.coli Shiga Tox PCR Not Detected (NotDetected) 03/27/24 Unknown Stl Enterotoxigenic E PCR Not Detected (NotDetected) 03/27/24 Unknown Stool EPEC (PCR) Not Detected (NotDetected) 03/27/24 Unknown Stool EAEC (PCR) Not Detected (NotDetected) 03/27/24 Unknown Stl E. histolytica PCR Not Detected (NotDetected) 03/27/24 Unknown Stool Giardia Lamblia PCR Not Detected (NotDetected) 03/27/24 Unknown Stool Salmonella PCR Not Detected (NotDetected) 03/27/24 Unknown Stool Sapovirus (PCR) Not Detected (NotDetected) 03/27/24 Unknown Stl P. shigelloides PCR Not Detected (NotDetected) 03/27/24 Unknown Stl Shigella/EIEC PCR Not Detected (NotDetected) 03/27/[address]enterocolitica PCR Not Detected (NotDetected) 03/27/24 Unknown Stool Vibrio (PCR) Not Detected (NotDetected) 03/27/24 Unknown Stl Vibrio cholerae PCR Not Detected (NotDetected) 03/27/24 Unknown Stl Norovirus GI/GII PCR DETECTED (NotDetected) A* 03/27/24 Unknown Blood Parasites ID Cancelled 03/28/24 05:44 Impressions Chest X-Ray 03/25/24 19:36 SINGLE VIEW CHEST CLINICAL HISTORY: Illness FINDINGS: An AP, portable, upright chest radiograph is compared to study dated 11/28/2023 and correlated with chest CT dated 02/20/2024. The examination is degraded by portable technique and patient rotation. The heart is enlarged. The pulmonary vasculature is noncongested. The lungs and pleural spaces are clear. No pneumothorax is seen. The skeletal structures are osteopenic. The bony thorax is grossly intact. Fusion hardware is seen in the lower cervical spine. IMPRESSION: No no acute cardiopulmonary abnormality. ACT 112: Negative or not required by law. Electronically signed by: Keegan Caceres M.D. 03/25/2024 9:[address] 03/25/24 20:18 Exam(s): CT HEAD Without Contrast EXAM: CT Head Without Intravenous Contrast CLINICAL HISTORY: Reason for exam: weakness, confusion. TECHNIQUE: Axial computed tomography images of the head/brain without intravenous contrast. CTDI is 33.8 mGy and DLP is 547.75 mGy-cm. Automated exposure control was utilized for the study. A dose lowering technique was utilized adhering to the principles of ALARA. COMPARISON: Prior brain MRI from April 21, 2023. FINDINGS: Brain: Unremarkable. No hemorrhage. Mild nonspecific white matter changes. No edema. Ventricles: Moderate ventriculomegaly. Ventriculomegaly. Bones/joints: Right craniotomy. No acute fracture. Soft tissues: Unremarkable. Sinuses: Unremarkable as visualized. No acute sinusitis. Mastoid air cells: Unremarkable as visualized. No mastoid effusion. IMPRESSION: No evidence of acute intracranial pathology. Electronically signed by: Janette Pride MD 03/26/24 00:[address] 03/25/24 20:18 Exam(s): CT L SPINE EXAM: CT Lumbar Spine Without Intravenous Contrast CLINICAL HISTORY: Reason for exam: low back pain, fall. TECHNIQUE: Axial computed tomography images of the lumbar spine without intravenous contrast. CTDI is 37.52 mGy and DLP is 1097.01 mGy-cm. Automated exposure control was utilized for the study. A dose lowering technique was utilized adhering to the principles of ALARA. COMPARISON: Prior CT scan of lumbar spine from November 05, 2019. FINDINGS: Vertebrae: Unremarkable. No acute fracture. Diffuse osteopenia throughout the visualized bones. Discs/spinal canal/neural foramina: No acute findings. There is a critical spinal canal stenosis at L3-4 and L4-5 Soft tissues: Unremarkable. IMPRESSION: No evidence of acute lumbar spine pathology. Critical spinal canal stenosis at. L3-4 and L4-5. Recommend MRI of the lumbar spine for further evaluation. Electronically signed by: Janette Pride MD 03/26/24 01:04 AM Lumbar Spine MRI 03/26/24 01:13 Exam(s): MRI L SPINE Without Contrast EXAM: MR Lumbar Spine Without Intravenous Contrast CLINICAL HISTORY: Reason for exam: severe stenosis on CT, leg weakness. TECHNIQUE: Magnetic resonance images of the lumbar spine without intravenous contrast in multiple planes. COMPARISON: Prior CT scan of the lumbar spine from March 25, 2024. FINDINGS: Vertebrae: There are 7 cervical type vertebral bodies with a mild generalized curve to the left and shallow lumbar lordosis. There is normal vertebral body height and alignment. The bone marrow signal is heterogeneous with reactive endplate changes. No acute fracture. There are multiple Schmorl's nodes in the thoracolumbar spine. Spinal cord: Unremarkable. Normal signal. Soft tissues: Distended urinary bladder. Advanced atrophy of the iliopsoas, paraspinous intraspinous musculature. The aorta and IVC flow voids are intact. The visualized kidneys are unremarkable. DISCS/SPINAL CANAL/NEURAL FORAMINA: L1-L2: There is mild disc degeneration with annular disc bulge causing a mild subarticular recess stenosis with disc extending into the left neural foramen without evidence of impingement or significant stenosis. L2-L3: There is mild disc degeneration with annular disc bulge flattening the ventral thecal sac with disc extending to the neural foramina without impingement or significant stenosis. L3-L4: Moderate disc degeneration with annular disc bulge causing a mild subarticular recess stenosis with disc extending into the neural foramina causing a mild right stenosis without evidence of neural impingement, with superimposed degeneration pedicles and facet joint arthropathy causing a mild spinal canal stenosis. There is disc extending to the neural foramina causing a mild right stenosis without evidence of neural impingement. L4-L5: Advanced disc degeneration with annular disc bulge causing a severe subarticular recess stenosis with impingement of the transiting L5 nerve roots and a critical spinal canal stenosis with thecal sac area measuring 0.18 cm. There is disc extending to the neural foramina causing a moderate left stenosis with mild impingement of the left L4 nerve root ganglion. L5-S1: The intervertebral disc is normal. IMPRESSION: 1. Advanced disc degeneration at L4-5, moderate disc degeneration at L3- 4 and mild disc degeneration at L1-2, and L2-3 with annular disc bulging flattening the ventral thecal sac and causing a mild subarticular recess stenosis at L1-2, L3-4, and severe subarticular recess stenosis at L4-5 with impingement of the transiting L5 nerve roots. Recommend a surgical consult for decompression. 2. There is a critical spinal canal stenosis at L4-5 and a mild stenosis at L3-4. 3. There is a mild right L3-4, and moderate left L4-5 neural foraminal stenosis with mild impingement of the left L4 nerve root ganglion. 4. No evidence of fracture, infection, tumor or arachnoiditis. 5. Distended urinary bladder, recommend Rent[place] catheter for decompression. Electronically signed by: Janette Pride MD 03/26/24 05:23 AM Hospital Course (1) Spinal stenosis of lumbar region: - CT scan notes severe spinal canal stenosis at L3-4 and L4-5 - MRI lumbar spine 03/26 showed advanced disk degeneration L4-L5, moderate disk degeneration at L3-L4, and mild degeneration at L1-L2. Mild subarticular recess stenosis and L1-L2 and severe stenosis at L4-L5 with impingement on L5 nerve roots. recommend surgical consult for decompression - Patient describes chronic severe pain from her shoulder blades to low back and hips with tight muscles throughout - Orthopedic surgery consulted, recommend against surgery bc of extensive medical history and new neutropenia - Patient recommended to see pcp and discuss starting osteopathic manipulative medicine for her ongoing lower back pain (2) Hyponatremia with decreased serum osmolality: - Secondary to excess free water intake d/t dry mouth/SIADH - Sodium level 124 (03/25) -> 134 (03/28) - Patient using sodium 1g tablets BID to replenish levels, plan to continue until follow up - Fluid restriction about 1.5L until pcp follow up - Patients electrolytes back in normal balance - should get follow up labs this week with pcp -Hold Daksha, vesicae. Resume Trintellix- if continued hyponatremia can switch to different anti-depressant (3) Diarrhea: - Patient has had diarrhea since admit, no vomiting or nausea - Stool PCR positive for norovirus - Monitor fluids and electrolytes; supportive care - improving (4) Neutropenia: - Neutrophil count of 0.74 K/uL 03/27 improved to 1.13K/uL 03/28 - Patients vitals stable, etiology unclear - Hematology recommends getting bone marrow biopsy to rule out MDS (5) Anxiety and depression: - Continue buspirone 30 mg PO BID - Diazepam 5 mg PO TID - Trazodone 150 mg PO HS Total Time Total Time Spent Total Time Spent (In Minutes): <30 Discharge Plan Discharge Items Patient Disposition: Home - Self-Care Reason For Visit: GEN WEAKNESS,HYPONATREMIA,CRIT LUMBAR SPINE STENO Discharge Diagnosis: Weakness, spinal stenosis and back pain Activity: Resume your previous activity Non-emergency contact: Primary Care Provider Call non-emergency contact if: your pain is not controlled Follow-up/Referrals: Donovan Keita MD [Physician] - Swetha Newberry DO [Primary Care Provider] - Diet: Regular Addtl Attending Provider Instructions: You were admitted with low sodium, we think this was likely secondary excessive water intake in the setting of dry mouth. You are on multiple mediations that can lead to dry mouth. You should hold off on restarting your Daksha. The Trintellix can also lead to dry mouth, in order to prevent withdrawal symptoms from abrupt cessation of the Trintelex, we will continue it on discharge but sh ould the dry mouth continue you should discuss possibly switching to a different medication with your primary care provider. You should hold off on restarting the Vesicare until you have repeat labs with your primary care doctor, you should make an appointment to see them with in the next week. We have been giving you salt tabs to help with the low sodium, we sent a script to the pharmacy for them and it is reasonable to continue to take one twice a day until you are able to have repeat labs. We have also been restricting your fluid, with it being so hot out there is a fine balance between too much and not enough fluid for you. About 1.5L per day is reasonable until your able to get follow up labs, but if you are outside or exerting yourself you may need more water. As we discussed your back pain is likely secondary to inflamed muscles surrounding your low back. OMT may be helpful in loosening up these muscles and improving your pain, when you follow up with [facility], they will be able to get your set up with one of the doctors in the practice that does OMT. We noted that your white blood cell count has been low throughout your admission and chronically in the past. Hematology saw you and felt a bone marrow biopsy may be indicated at some point in the future. We will get you set up for a follow up appointment with them as an outpatient. Pending Studies at Discharge: No Stand-Alone Forms: My [facility], Smoking Cessation Medications and DC Order Prescriptions: New sodium chloride 1,000 mg Tablet,Soluble 1,000 mg PO BID 30 Days Qty: 60 0RF Continued calcium carbonate-vitamin D3 [Calcium 600 with Vitamin D3] 600 mg-12.5 mcg (500 unit) capsule 1 cap PO QAM Hold Instructions: SURGERY nystatin 100,000 unit/gram cream 1 applic topical DAILY PRN (Reason: Skin Irritation) losartan 25 mg tablet 25 mg PO BID Trintellix 20 mg tablet 20 mg PO QAM pseudoephedrine HCl [Sudafed 12 Hour] 120 mg tablet extended release 120 mg PO BID 30 Days Qty: 60 3RF Hold Instructions: SURGERY clotrimazole 2 % cream 1 appful topical ONCE Qty: 21 1RF metoprolol succinate 25 mg tablet extended release 24 hr 25 mg PO QAM rizatriptan 10 mg tablet,disintegrating 10 mg PO DIRECTED MDD 3 DOSES/24 HOURS PRN (Reason: Migraine Headache) Rx Instructions: TAKE 10 MG AT ONSET OF YEPEZ, THEN REPEAT IN 2 HOURS IF NEEDED. MAX 3 DOSES/24 HOURS. omeprazole 40 mg capsule,delayed release(DR/EC) 40 mg PO DAILY PRN (Reason: gerd) alendronate 35 mg tablet 35 mg PO WK Rx Instructions: TAKE THIS MED EVERY FRIDAY MORNING trazodone 150 mg tablet 75 - 150 mg PO HS PRN (Reason: Sleep) buspirone 30 mg tablet 30 mg PO BID diazepam 5 mg tablet 5 mg PO DAILY PRN (Reason: Anxiety) Centrum Women 18-400 mg-mcg Tablet 1 tab PO QAM Hold Instructions: SURGERY fluticasone propionate 50 mcg/actuation spray,suspension 1 spray INTRANASAL BID PRN (Reason: Congestion) Held chlorpheniramine maleate [Allergy Relief(chlorpheniramn)] 4 mg tablet 4 mg PO Q12H 30 Days Qty: 60 3RF Hold Instructions: Hold due to hyponatremia, if needed for allergy relief can discuss resuming with PCP solifenacin [Vesicare] 5 mg tablet 5 mg PO QAM Hold Instructions: Hold due to hyponatremia, resume per primary care provider after follow up labs Discharge Orders: Discharge Order (Routine); Ordered 03/29/24 Ordered By: Sadia Prince Admission Data Admit Date/Time: 03/26/24 01:42 Attending Provider: Samson Gonzalez Admit Provider: Timmy Bruno Primary Care Provider: Swetha Newberry Other Providers: Timmy Bruno; Sathya Jj; Donovan Keita Supervising Physician Co-Signing Physician Notes I personally examined the patient and verified all rachel points of history and exam, discussed case, and agree with decision making with Dr Hickman Would like to go home. No new complaints. Vitals noted, in general she is awake and alert pleasant no distress. HEENT normocephalic atraumatic mucous membranes moist. Breathing unlabored no accessory muscle use good effort. Skin shows no rashes no pallor or icterus. Neuro without focal deficits. Piriformis high tone, tender, decreased range of motion. Hyponatremiastable for home. Outpatient lab monitoring back painwhile she does have significant spinal disease on MRI, her symptoms fit much more with biomechanical pain. I suspect its much more of a mixed picture than purely a spinal stenosis pictureand with that I am not confident that a surgical procedure would alleviate her symptoms anyway. Discussed this in depth with patient, would recommend an outpatient trial of OMT. She is willing and certainly quite reticent for surgery unless it is absolutely necessary. Stable for home. Resident Activity Tracking Resident Involvement: Resident Care Provided Care Provided: Adult Hospital Medicine
[2024-03-29 16:08] VITALS: PULSE 75
--- NOTE | 2024-03-29 17:53 | Billing Data ---
Date of Service March 29, 2024 Coding Level of Care Code 67570 IN/OBS DISCH 30 MIN/LESS
== END 2024-03-29 16:33 | disposition home or self-care (01) | DRG 644 ==
LOC: ED 19:14 → 2N 03-26 01:42 → SUATTDRO 03-26 01:42 → 2N 03-26 04:02

== ENCOUNTER 2024-04-26 10:38 | Inpatient (IN) ==
--- NOTE | 2024-04-26 11:03 | Emergency Department Note ---
Impression & Plan Hypotension, Weakness, Altered mental status, Acute dehydration, Bradycardia, Acute UTI ED Provider Note NAME: JUHI WHITFIELD AGE: 64 SEX: F : 1960 ARRIVES VIA: Ambulance INFORMANT: [Patient][nursing, EMS] ED PROVIDER(S): [Keegan Humphrey MD] CHIEF COMPLAINT: Weakness HISTORY OF PRESENT ILLNESS: The patient is a 64-year-old female with a history of brain hemorrhage. She is scheduled for an outpatient CT of her abdomen although, she is unsure why. The patient apparently woke up this morning tired, weak and lethargic. EMS was summoned. As per EMS, patient's blood pressure was low in the 90s systolic. Her pulse was in the 50s. Blood sugar was 111. Currently, the patient has no complaints of headache, chest pain or shortness of breath. No abdominal pain. She just feels all over weak and quite tired. As per family at the bedside, the patient has had a decline in the last several days. She has been weaker and weaker and has been more and more tired. PMHx/PSHx/Social Hx: See Below PHYSICAL EXAM: GENERAL: Patient is in no acute distress. HEENT: No acute trauma, normocephalic atraumatic, mucous membranes dry, no nasal congestion. NECK: No stridor, no adenopathy, no meningismus, trachea is midline. LUNGS: Clear to auscultation bilaterally, no wheeze, no rhonchi, breath sounds equal. HEART: Bradycardic, regular rhythm, no murmurs. ABDOMEN: Soft, nontender, no peritonitis. EXTREMITIES: No cyanosis, full range of motion of all the joints without pain or difficulty. NEUROLOGIC: Oriented x 3. No speech slur. Seems sleepy. SKIN: No jaundice, no diaphoresis. Pale. DIFFERENTIAL DIAGNOSIS: Intracranial bleeding, UTI, anemia, electrolyte imbalance, dehydration, viral illness, among others. EMERGENCY DEPARTMENT PROCEDURES: MEDICAL DECISION MAKING: There is a lower white blood cell count and platelet count, this appears chronic. No concerning anemia. There is no renal failure or significant electrolyte abnormality. No concerning liver enzyme elevation. The TSH was slightly high however, the T4 was normal. ECG showed a sinus bradycardia, no acute ST elevation. Cardiac enzyme testing x 1 was not consistent with acute cardiac injury. Urinalysis shows some dehydration and potential infection. COVID, influenza and RSV test were negative. Chest film does not show pneumonia or CHF. Brain CT showed no acute bleed or mass effect. On exam, the patient was sleepy and appeared dehydrated. No focal neurologic findings. The patient received IV ceftriaxone for the UTI. She was given a total of 2 L of IV saline. The patient presents with weakness, change in mental status. She was found to be dehydrated, she was initially hypotensive on scene. Her blood pressure has improved since receiving IV fluids. Her mental status has improved since receiving IV fluids. Given her findings and complaints, I do believe a hospital stay is warranted. I spoke with the patient and case management. The on-call hospitalist was consulted. Prior/Outside records/notes reviewed: Today's EMS notes describing her presentation and transport to this hospital. ECG per my interpretation: Indication was weakness. The ECG shows a sinus bradycardia with a rate of 59. There appears to be a prolonged QT with a QTc of 495. There is no acute ST elevation, no PVCs. Continuous Cardiac Monitoring per my interpretation: An order was placed for continuous cardiac monitoring. The monitor shows a rate of 54 with sinus bradycardia. Imaging/x-ray results per my interpretation: Chest x-ray does not show CHF or pneumonia. Chronic Medical/Social conditions affecting care: History of intracranial bleeding. Care/Management discussed with: Case management, the on-call hospitalist. Level of care consideration(s): After review of the information above and other included data: --I believe the patient requires escalation of care to admission DISPOSITION: Admission Past Med/Surg History Problem List (Updated 04/26/24 @ 15:39 by Keegan Humphrey MD) Acute UTI (Acute) Bradycardia (Acute) Acute dehydration (Acute) Altered mental status (Acute) Weakness (Acute) Hypotension (Acute) Vitamin D deficiency Neutropenia Hyponatremia with decreased serum osmolality Generalized weakness (Acute) Spinal stenosis of lumbar region Incontinence (Chronic) Myofascial pain Dermatochalasis of both upper eyelids 10/28/23 Shoulder pain Status post arthroscopy of left knee Knee pain, left Encounter for pre-operative examination Episodes of speech arrest 04/21/23 Episodes of staring 04/21/23 Lumbar spondylosis Thrombocytopenia Spinal stenosis Positive ROSANGELA (antinuclear antibody) Scalp hematoma Gastritis 01/30/22 Elevated LFTs Ambulatory dysfunction (Acute) Frequent falls (Acute) Chronic pain disorder Hypocalcemia Anemia Leukopenia Encephalopathy Metabolic acidosis (Acute) Hypomagnesemia (Acute) Chronic hyponatremia S/P cervical spinal fusion ROM WNL History of onel hole surgery History of arthroscopic procedure on shoulder Rt History of carpal tunnel surgery Rt COPD (chronic obstructive pulmonary disease) pt denies Alcoholism (Acute) Chronic pancreatitis pt denies Nonischemic cardiomyopathy Uterine leiomyoma (Chronic 07/18/11) 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/11) Seizure disorder (Chronic 05/16/12) Medical History Lumbar stenosis 03/26/24 MRI showed significant stenosis lumbar spine; pt was originally to have lumbar decompression/fusion but put on hold pending evaluation for pancytopenia History of recent hospitalization [facility] 03/26/24-03/29/24: dx: hyponatremia, weakness, neutropenia, LBP. pt started on fluid restriction and sodium tabs. heme recommended bone marrow bx for neutropenia. ortho/spine consulted for lumbar spinal stenosis but operative mgmt deferred 2/2 comorbidities and pancytopenia. 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 These have been stopped... 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 These have been stopped" Spinal stenosis GERD (gastroesophageal reflux disease) controlled, stable per pt Difficult airway for intubation limited cervical spine extension; s/p cervical spinal fusion Lumbar facet joint syndrome Lumbar spondylosis Hx of falling last fall over 1 year ago per patient Hx of gastritis patient denies recent flare Hx of encephalopathy no issues since stopping ETOH use 2021 COPD (chronic obstructive pulmonary disease) former smoker History of alcoholism (2021) quit 2021 (drank 6 beers/day) Hx of tinnitus Hx of migraines Pulmonary hypertension Hx of per 09/2019 ECHO: Moderate pulmonary HTN: T[place]anie PASP 51mmhg, assuming RAP of 3mmhg; per 03/2024 ECHO: RVSP 31mmHg Seasonal allergies Non-ischemic cardiomyopathy alcoholic CM; EF 35-40% in 2018, 60-65% in 2019 Hx of chronic pancreatitis History of anemia Chronic pain disorder back Positive ROSANGELA (antinuclear antibody) Stress incontinence Chronic cough Follows with [facility] pulm - pt. reports due to pollen and states has nearly resolved in recent months HTN (hypertension) controlled, stable per pt Cirrhosis Hep C induced; pt recently dx with recurrence of Hep C and awaiting tx with hepatology History of subdural hematoma (2010) 2010 Osteoarthritis History of seizure (2010) Following subdural hematoma 2010 from fall. Pt follows with [facility] Neuro; per 01/01/24 Neuro note, pt had 'episode of speech and movement arrest in the context of a histyr of posttraumatic seizures' 04/2023. Had normal EEG. Pt advised by neuro to start keppra but pt refuses. Surgical History (Updated 04/23/24 @ 14:39 by Galina Erickson PA-C) Hx of blepharoplasty (01/2024) History of craniotomy (2010) Due to subdural hematoma from fall Hx of hysterectomy Hx of cholecystectomy History of carpal tunnel release right Hx of arthroscopy of shoulder right Hx of arthroscopy of left knee S/P cervical spinal fusion C4-C7 per imaging review History of onel hole surgery (2010) lead to craniotomy History of esophagogastroduodenoscopy (EGD) History of colonoscopy Family History Mother Hypertension Other No family history of adverse response to anesthesia Social History Smoking Status: Former smoker Tobacco Type: Cigarettes Age Started Using Tobacco: 18; Age Quit Using Tobacco: 30; packs per day: 1; Second Hand Exposure: No; Do You Dip or Chew Tobacco: No; Hx Alcohol Use: No Hx Substance Use: No Preferred Language: Malagasy Communication Ability: Effective Seismometer Operator Required: No Beliefs That Will Affect Care: None marital status: Single Current Living Situation: Spouse Current Living Situation Comment: lives with current occupational status: unemployed How many Children do You have: 0 Feels Safe at Home: Yes Assistive Devices: Glasses and Hearing Aid - Bilateral Allergies Allergies Allergy/AdvReac Type Severity Reaction Status Date / Time aripiprazole AdvReac Severe seizure Verified 04/23/24 12:53 activity per [facility] EMR gabapentin AdvReac Severe Confusion Verified 04/23/24 12:53 acetaminophen AdvReac Unknown per [facility] Verified 04/23/24 12:53 EMR, to be avoided given cirrhosis ibuprofen AdvReac Unknown per [facility] Verified 04/23/24 12:53 EMR to be avoided given cirrhosis Home Meds Home Medications Medication Instructions Recorded Confirmed rizatriptan 10 mg disintegrating 10 mg PO DIRECTED PRN Migraine 11/21/21 04/26/24 tablet Headache calcium carbonate 600 mg-vitamin 1 cap PO QAM 08/02/22 04/26/24 D3 12.5 mcg (500 unit) capsule (Calcium 600 with Vitamin D3) alendronate 35 mg tablet 35 mg PO WK 04/20/23 04/26/24 buspirone 30 mg tablet 30 mg PO BID 04/20/23 04/26/24 diazepam 5 mg tablet 5 mg PO BID PRN Anxiety 04/20/23 04/26/24 multivitamin-ferrous 1 tab PO QAM 04/20/23 04/26/24 fumarate-folic acid 18 mg-400 mcg tablet (Centrum Women) omeprazole 40 mg capsule,delayed 40 mg PO DAILY gerd 04/20/23 04/26/24 release losartan 25 mg tablet 25 mg PO BID 07/31/23 04/26/24 nystatin 100,000 unit/gram topical 1 applic topical UD PRN Skin 07/31/23 04/26/24 cream Irritation clotrimazole 2 % vaginal cream 1 appful topical UD PRN Vaginal 04/23/24 04/26/24 Dryness carvedilol 3.125 mg tablet 3.125 mg PO BID 04/26/24 04/26/24 fluoxetine 20 mg capsule See Rx Instructions .Route .COMPLEX 04/26/24 04/26/24 fluoxetine 40 mg capsule See Rx Instructions .Route .COMPLEX 04/26/24 04/26/24 oxycodone 5 mg tablet 5 mg PO Q6H PRN Pain 04/26/24 04/26/24 trazodone 150 mg tablet 225 mg PO HS PRN Insomnia 04/26/24 04/26/24 Previous Rx's Medication Instructions Recorded sodium chloride 1,000 mg soluble 1,000 mg PO BID 30 days #60 tabs 03/29/24 tablet Results & Data (ED) Vital Signs Vital Signs - 24 hr 04/26/24 10:47 04/26/24 10:51 04/26/24 11:06 Temperature 36.5 C Temperature Source Oral Pulse Rate 56 L 56 L 57 L Pulse Rate from SpO2 Sensor Respiratory Rate 12 12 17 Blood Pressure 107/57 L 95/53 L Blood Pressure Mean 73 67 Pulse Oximetry 99 99 Oxygen Delivery Method Room Air Room Air Sepsis Recent Fever Within 48 Hours No Sepsis New/Unexplained Change in Mental Status N/A Sepsis Action Taken by Nursing No Action Required 04/26/24 12:00 04/26/24 12:35 04/26/24 14:30 Temperature Temperature Source Pulse Rate 63 68 68 Pulse Rate from SpO2 Sensor 63 68 Respiratory Rate 18 15 Blood Pressure 123/74 140/83 Blood Pressure Mean 90 102 Pulse Oximetry 97 99 Oxygen Delivery Method Sepsis Recent Fever Within 48 Hours Sepsis New/Unexplained Change in Mental Status Sepsis Action Taken by Nursing 04/26/24 15:06 Temperature Temperature Source Pulse Rate 67 Pulse Rate from SpO2 Sensor 67 Respiratory Rate 12 Blood Pressure Blood Pressure Mean Pulse Oximetry 99 Oxygen Delivery Method Sepsis Recent Fever Within 48 Hours Sepsis New/Unexplained Change in Mental Status Sepsis Action Taken by [place] Medications Current Medication List: was personally reviewed by me Laboratory Data Attestation: I reviewed the patient's lab results. 04/26/24 11:13 04/26/24 11:13 Lab Results 04/26/24 04/26/24 04/26/24 Range/Units 11:13 11:40 13:25 WBC 2.65 L (4.8-10.8) K/ul RBC 3.84 L (4.20-5.40) M/uL Hgb 12.9 (12.0-16.0) g/dl Hct 38.9 (37.0-47.0) % MCV 101.3 H (80.0-100.0) fL MCH 33.6 (25.0-34.0) pg MCHC 33.2 (32.0-36.0) g/dL RDW Std Deviation 49.3 H (36.4-46.3) fL RDW Coeff of [place] 13.2 (11.5-14.5) % Plt Count 102 L (130-400) K/uL MPV 8.5 L (9.4-12.4) fL Immature Gran % (Auto) 0.4 % Neut % (Auto) 51.3 % Lymph % (Auto) 28.3 % [place] % (Auto) 14.7 % Eos % (Auto) 4.5 % Baso % (Auto) 0.8 % Neut # (Auto) 1.36 L (1.40-6.50) K/uL Lymph # (Auto) 0.75 L (1.20-3.40) K/uL [place] # (Auto) 0.39 (0.11-0.59) K/uL Eos # (Auto) 0.12 (0.00-0.50) K/uL Baso # (Auto) 0.02 (0.00-0.20) K/uL Immature Gran # (Auto) 0.01 (0.01-0.20) K/uL Sodium 136 (136-145) mmol/L Potassium 4.4 (3.5-5.1) mmol/L Chloride 101 (98-107) mmol/L Carbon Dioxide 30 (21-32) mmol/L Anion Gap 5 (3-11) BUN 8 (6-23) mg/dl Creatinine 0.98 (0.6-1.2) mg/dl Est Cr Clr Drug Dosing 55.7 ml/min Est GFR ( Amer) 70.2 ml/min Est GFR (Non-Af Amer) 60.5 ml/min BUN/Creatinine Ratio 8.2 L (10-20) Glucose 106 H (70-99(Fasting)) mg/dl Calcium 9.0 (8.6-10.3) mg/dl Magnesium 1.9 (1.7-2.4) mg/dl Total Bilirubin 0.5 (0.2-1.0) mg/dl AST 28 (13-39) U/L ALT 15 (7-52) U/L Alkaline Phosphatase 45 (34-104) U/L Troponin I High Sens < 2.3 (0-14) pg/ml Total Protein 6.8 (6.0-8.3) gm/dl Albumin 4.2 (3.4-5.0) gm/dl Globulin 2.6 (2.5-4.0) gm/dl Albumin/Globulin Ratio 1.6 (0.9-2) TSH 4.923 H (0.300-4.500) uIu/ml Free T4 1.01 (0.61-1.60) ng/dl Urine Color Dark Yellow Urine Appearance Cloudy A (Clear) Urine pH 5.5 (4.5-7.5) Ur Specific [place] 1.019 (1.000-1.030) Urine Protein Negative (Negative) Urine Glucose (UA) Negative (Negative) Urine Ketones Trace H (Negative) Urine Blood Negative (Negative) Urine Nitrite Negative (Negative) Urine Bilirubin Negative (Negative) Urine Urobilinogen Negative (Negative) Ur Leukocyte Esterase 2+ H (Negative) Urine WBC (Auto) 21-50 H (0-5) /hpf Urine RBC (Auto) 0-2 (0-2) /hpf U Hyaline Cast (Auto) >20 H (0-2) /lpf U Epithel Cells (Auto) 3-5 H (0-2) /hpf Urine Bacteria (Auto) 4+ H (None Seen) Hyaline Casts Present A (None Presnt) /lpf SARS-CoV-2 (PCR) NEGATIVE (Negative) Influenza Type A (PCR) Negative (Neg) Influenza Type B (PCR) Negative (Neg) RSV (RT-PCR) Negative (Neg) Administered Medications Discontinued Medications Sodium Chloride (Nss) 500 mls @ 999 mls/hr IV .Q31M LAURA Stop: 04/26/24 11:30 Last Infusion: 04/26/24 12:12 Dose: Infused Documented By: Admin: 04/26/24 11:19 Dose: 999 mls/hr Documented By: MAYDA Sodium Chloride (Nss) 1,000 mls @ 999 mls/hr IV .Q1H1M ONE Stop: 04/26/24 13:56 Last Infusion: 04/26/24 14:38 Dose: Infused Documented By: Admin: 04/26/24 13:30 Dose: 999 mls/hr Documented By: MELODY Sodium Chloride (Nss) 500 mls @ 999 mls/hr IV .Q31M ONE Stop: 04/26/24 15:22 Last Admin: 04/26/24 15:03 Dose: 999 mls/hr Documented By: [facility] Imaging Data Radiologist's Impression: Chest X-Ray 04/26/24 10:48 XR chest 1V portable CLINICAL HISTORY: weakness COMPARISON STUDY: Chest CT February 20, 2024. Chest radiograph March 25, 2024. FINDINGS: Postoperative findings within the spine are incidentally noted. There is no pneumothorax or pleural effusion. There is no consolidation or evidence for pulmonary edema. Linear left basilar density represents atelectasis. Cardiomediastinal silhouette is unremarkable. IMPRESSION: No acute cardiopulmonary findings. ACT 112: Negative or not required by law. Electronically signed by: Ion Azul M.D. 04/26/2024 12:[address] 04/26/24 10:48 CT head/brain wo con CLINICAL HISTORY: lethargy Technique: Contiguous axial CT images of the head were acquired from the base of the skull to the vertex without intravenous contrast administration. Images were viewed in brain, subdural and bone windows. Automated dose lowering techniques and/or adjustment according to patient size were utilized for this exam. Comparison: Comparison is made to CT head 03/25/2024 Findings: Areas of decreased attenuation are present in the periventricular and subcortical white matter bilaterally consistent with small vessel ischemic disease. Generalized cerebral atrophy with commensurate enlargement of the ventricles, sulci, and cisterns is also present. There is no acute intracranial hemorrhage or evidence of acute territorial infarction. No shift of the midline structures, mass effect, or extra-axial abnormalities are shown. Atherosclerotic calcifications are present in the intracranial segments of the internal carotid arteries. Imaged portions of the paranasal sinuses and mastoid air cells are clear. The orbits appear normal. Postsurgical changes in the right calvarium again seen. Impression: No acute intracranial hemorrhage, no evidence of acute territorial infarction or other acute intracranial disease process. ACT 112: Negative or not required by law. Electronically signed by: Jay Hernandez M.D. 04/26/2024 12:57 PM Discharge Plan Visit Data Chief Complaint: Weakness Stated Complaint: WEAKNESS ED Provider: Keegan Humphrey Discharge Problem: Hypotension, Weakness, Altered mental status, Acute dehydration, Bradycardia, Acute UTI Patient Disposition: Admitted As Inpatient Condition: Fair Forms Stand Alone Forms: My [facility] pic5 Prescriptions Prescriptions: No Action calcium carbonate-vitamin D3 [Calcium 600 with Vitamin D3] 600 mg-12.5 mcg (500 unit) capsule 1 cap PO QAM Hold Instructions: SURGERY nystatin 100,000 unit/gram cream 1 applic topical UD PRN (Reason: Skin Irritation) losartan 25 mg tablet 25 mg PO BID rizatriptan 10 mg tablet,disintegrating 10 mg PO DIRECTED MDD 3 DOSES/24 HOURS PRN (Reason: Migraine Headache) Rx Instructions: TAKE 10 MG AT ONSET OF YEPEZ, THEN REPEAT IN 2 HOURS IF NEEDED. MAX 3 DOSES/24 HOURS. omeprazole 40 mg capsule,delayed release(DR/EC) 40 mg PO DAILY alendronate 35 mg tablet 35 mg PO WK Rx Instructions: Pt usually takes on Friday mornings, but forgot to take it on 04/25/24 so she took it on the morning of 04/26/24 buspirone 30 mg tablet 30 mg PO BID diazepam 5 mg tablet 5 mg PO BID PRN (Reason: Anxiety) Centrum Women 18-400 mg-mcg Tablet 1 tab PO QAM Hold Instructions: SURGERY clotrimazole 2 % cream 1 appful topical UD PRN (Reason: Vaginal Dryness) sodium chloride 1,000 mg Tablet,Soluble 1,000 mg PO BID 30 Days Qty: 60 0RF fluoxetine 40 mg capsule See Rx Instructions .ROUTE .COMPLEX Rx Instructions: Take 40mg w/ 20mg every morning to equal 60mg carvedilol 3.125 mg tablet 3.125 mg PO BID trazodone 150 mg tablet 225 mg PO HS PRN (Reason: Insomnia) fluoxetine 20 mg capsule See Rx Instructions .ROUTE .COMPLEX Rx Instructions: Take 20mg w/ 40mg every morning to equal 60mg oxycodone 5 mg tablet 5 mg PO Q6H PRN (Reason: Pain) Referrals Referrals: Swetha Newberry DO [Primary Care Provider] - Discharge Problem: Hypotension Qualifiers: Hypotension type: unspecified hypotension type Qualified Code(s): I95.9 - Hypotension, unspecified Altered mental status Qualifiers: Altered mental status type: somnolence Qualified Code(s): R40.0 - Somnolence
[2024-04-26] MEDS: SODIUM CHLORIDE 0.9% 500 ML IV SCH (11:19)
[2024-04-26 11:39] LABS: Basophils # (auto) 0.02 K/uL (0.00-0.20); Basophils % (auto) 0.8 %; Eosinophils # (auto) 0.12 K/uL (0.00-0.50); Eosinophils % (auto) 4.5 %; Hematocrit (blood only) 38.9 % (37.0-47.0); Hemoglobin 12.9 g/dl (12.0-16.0); Immature Granulocytes # (auto) 0.01 K/uL (0.01-0.20); Immature Granulocytes % (auto) 0.4 %; Lymphocytes # (auto) 0.75 K/uL (1.20-3.40); Lymphocytes % (auto) 28.3 %; Mean Corpuscular Hemoglobin 33.6 pg (25.0-34.0); Mean Corpuscular Hgb Conc 33.2 g/dL (32.0-36.0); Mean Corpuscular Volume 101.3 fL (80.0-100.0); Mean Platelet Volume 8.5 fL (9.4-12.4); Monocytes # (auto) 0.39 K/uL (0.11-0.59); Monocytes % (auto) 14.7 %; Neutrophils # (auto) 1.36 K/uL (1.40-6.50); Neutrophils % (auto) 51.3 %; Platelet Count 102 K/uL (130-400); RDW Coefficient of Variation 13.2 % (11.5-14.5); RDW Standard Deviation 49.3 fL (36.4-46.3); Red Blood Count 3.84 M/uL (4.20-5.40); White Blood Count 2.65 K/ul (4.8-10.8)
[2024-04-26 12:01] LABS: Alanine Aminotransferase 15 U/L (7-52); Albumin Globulin Ratio 1.6 (0.9-2); Albumin Level 4.2 gm/dl (3.4-5.0); Alkaline Phosphatase 45 U/L (34-104); Anion Gap 5 (3-11); Aspartate Aminotransferase 28 U/L (13-39); BUN Creatinine Ratio 8.2 (10-20); Bilirubin,Total 0.5 mg/dl (0.2-1.0); Blood Urea Nitrogen 8 mg/dl (6-23); Carbon Dioxide 30 mmol/L (21-32); Chloride 101 mmol/L (98-107); Creatinine Clr Calc Pharmacy 55.7 ml/min; Est GFR (African American) 70.2 ml/min; Est GFR (Non-African American) 60.5 ml/min; Globulin 2.6 gm/dl (2.5-4.0); Glucose 106 mg/dl (70-99(Fasting)); Magnesium 1.9 mg/dl (1.7-2.4); Potassium 4.4 mmol/L (3.5-5.1); Sodium 136 mmol/L (136-145); Total Protein 6.8 gm/dl (6.0-8.3)
--- NOTE | 2024-04-26 12:06 | XRay Report ---
XR chest 1V portable CLINICAL HISTORY: weakness COMPARISON STUDY: Chest CT February 20, 2024. Chest radiograph March 25, 2024. FINDINGS: Postoperative findings within the spine are incidentally noted. There is no pneumothorax or pleural effusion. There is no consolidation or evidence for pulmonary edema. Linear left basilar den sity represents atelectasis. Cardiomediastinal silhouette is unremarkable. IMPRESSION: No acute cardiopulmonary findings. ACT 112: Negative or not required by law. Electronically signed by: Ion Azul M.D. 04/26/2024 12:05 PM
[2024-04-26 12:07] LABS: Troponin I High Sensitivity < 2.3 pg/ml (0-14)
[2024-04-26 12:17] LABS: Thyroid Stimulating Hormone 4.923 uIu/ml (0.300-4.500)
[2024-04-26 12:35] LABS: Influenza A virus by PCR Negative (Neg); Influenza B virus by PCR Negative (Neg); RSV by PCR Negative (Neg); SARS CoV2 RNA(COVID-19) Ceph NEGATIVE (Negative)
[2024-04-26 12:54] LABS: T4 Free Thyroxine 1.01 ng/dl (0.61-1.60)
--- NOTE | 2024-04-26 12:59 | CT Scan Report ---
CT head/brain wo con CLINICAL HISTORY: lethargy Technique: Contiguous axial CT images of the head were acquired from the base of the skull to the crystal ching without intravenous contrast administration. Images were viewed in brain, subdural and bone [facility]. Automated dose lowering techniques and/or adjustment according to patient size were utilized for this exam. Comparison: Comparison is made to CT head 03/25/2024 Findings: Areas of decreased attenuation are present in the periventricular and subcortical white matter bilate rally consistent with small vessel ischemic disease. Generalized cerebral atrophy with commensurate e nlargement of the ventricles, sulci, and cisterns is also present. There is no acute intracranial hem orrhage or evidence of acute territorial infarction. No shift of the midline structures, mass effect, or extra-axial abnormalities are shown. Atherosclerotic calcifications are present in the intracran ial segments of the internal carotid arteries. Imaged portions of the paranasal sinuses and mastoid air cells are clear. The orbits appear normal. Postsurgical changes in the right calvarium again seen. Impression: No acute intracranial hemorrhage, no evidence of acute territorial infarction or other acute intracra nial disease process. ACT 112: Negative or not required by law. Electronically signed by: Jay Hernandez M.D. 04/26/2024 12:57 PM
[2024-04-26] MEDS: SODIUM CHLORIDE 0.9% 1,000 ML IV ONE (13:30)
--- OUTSIDE RECORDS SUMMARY | 2024-04-26 14:57 | External Medical Summary | Continuity of Care Document ---
Author Name Unknown Organization [facility] [id number] Address [address] [place] [phone] Care Team Providers Care Snuff Drier Name Role Phone Swetha [facility] P justino [phone] Encounter [facility] [phone] Date(s): 04/21/24 - 04/21/24 [facility] 0 [facility] Medicine [address] [place] [id number] Encounter Diagnosis Osteoarthritis of knees, bilateral(Discharge Diagnosis) - 04/21/24 Discharge Disposition: Home or Self Care Attending Physician: PELON Andujar Dennis Allergies, Adverse Reactions, Alerts Substance Criticality Severity Reaction Reaction Severity Status Abilify seizure activity Act milan Rexulti feeling unstable Act milan gabapentin confusion Active Allergy Not found in Search 1 watery eyes Sneezing Active 1Seasonal allergies Assessment and Plan Extracted from: Title:Clinical Document Author:PELON Andujar Denn is Date:04/21/24 OUTPATIENT NOTE Name: JUHI WHITFIELD Patient Number:1 [id number] : 1960 Date of Service: 04/21/2024 HPI: This 64-year-old female presents to the clinic today for bilateral knee Euflexxa injection #1. Patient states her last series of viscosupplementation was in August of this year. Patient complains of pain in both knees but states that her left knee hurts more than her right and that her range of motion has not full. Physical examination: Bilateral knees; range of motion of the right knee actively is from 0 degrees of extension to 120 degrees of flexion. In her left knee she is able to reach 4 degrees of extension and 108 degrees of flexion. Patient does experience medial joint line tenderness when the knees are palpated in the flexed position. There is audible crepitation with passive range of motion. I was able to slightly manipulate her right patella with palpable crepitation. Her left patella is not mobile due to arthritic change. Patient had no laxity with varus or valgus stressing. AP drawer sign and Lala test were negative. Patient was neurovascularly intact in both lower extremities. Impression: Bilateral knee osteoarthritis Procedure: Patient was seated on the edge of the table with both knee placed in the flexed position. Using the cap of the needle the lateral joint space of each knee was marked. A timeout was performed with the patient and she verbalizes that we will proceed with bilateral knee Euflexxa injection #1. Marked site as cleansed with a Betadine swab, anesthetized with ethyl chloride spray, and wiped clean with alcohol soaked 4 x 4. A 22-gauge needle connected to a prefilled syringe containing Euflexxa was easily passed through the lateral joint space of each knee and injected free-flowing without meeting resistance. Upon removal of the needle patient had no bleeding. Site was again cleansed with an alcohol soaked 4 x 4, wiped dry with a sterile 4 x 4 and covered with a Band-Aid. RADHA Grant served as a witness for this procedure. Plan: Patient was advised to watch for signs symptoms of infection if any should occur she was advised to either contact her clinic or go to the emergency department immediately. Patient verbalized understanding of all information provided during today's visit. She thanks for the care that she received. If she has questions or concerns should arise prior to her next injection in 1 week, she will contact the clinic. This chart was completed utilizing PPTV voice recognition software. Grammatical errors, random word insertions, pronoun errors, and in complete sentences are an occasional consequence of the system. Any questions or concerns about the content, text, or information contained within the body of this dictation should be addressed directly to the physician for clarification. Immunizations Given and Recorded Vaccine Date Status Refusal Reason SARS-CoV-2 (COVID-19) mRNA BNT-162b2 vax 1 05/31/21 Recorded SARS-CoV-2 (COVID-19) mRNA BNT-162b2 vax 2 11/04/20 Recorded SARS-CoV-2 (COVID-19) mRNA BNT-162b2 vax 3 10/14/20 Recorded zoster vaccine, inactivated 4 04/28/20 Recorded zoster vaccine, inactivated 5 08/09/19 Recorded tetanus toxoids-diphtheria, Td (Adult) 6 01/04/19 Recorded tetanus toxoids-diphtheria, Td (Adult) 7 12/09/02 Recorded tetanus toxoids-diphtheria, Td (Adult) 8 08/18/92 Recorded pneumococcal 23-valent vaccine 9 05/04/12 Recorded tetanus/diphtheria/pertuss, acel (Tdap) 10 08/20/10 Recorded 1Result Comment: 2021-10-18: Historical information-source unspecified 2Result Comment: 2021-10-18: Historical information-source unspecified 3Result Comment: 2021-10-18: Historical information-source unspecified 4Result Comment: 2021-10-18: Historical information-source unspecified 5Result Comment: 2021-10-18: Historical information-source unspecified 6Result Comment: 2021-10-18: Historical information-source unspecified 7Result Comment: 2021-10-18: Historical information-source unspecified 8Result Comment: 2021-10-18: Historical information-source unspecified 9Result Comment: 2021-10-18: Historical information-source unspecified 10Result Comment: 2021-10-18: Historical information-source unspecified Medications acetaminophen Start: 02/07/22 1:07:00 PM EDT, 650 mg =, PO, q8h, prn for pain Start Date: 02/07/22 Status: Ordered BuSpar Dividose 30 mg oral tablet Start: 04/23/24 3:35:00 PM EDT, 1 tab, PO, bid Start Date: 04/23/24 Status: Ordered busPIRone 15 mg oral tablet TAKE 1 TABLET BY MOUTH 3 TIMES DAILY Start Date: 05/10/22 Status: Ordered calcium citrate Start: 12/17/23 3:00:00 PM EDT Start Date: 12/17/23 Status: Ordered Centrum Silver Start: 12/17/23 3:00:00 PM EDT Start Date: 12/17/23 Status: Ordered Coreg 3.125 mg oral tablet Start: 04/23/24 3:40:00 PM EDT, 1 tab, PO, bid, Disp# 180 tab, Refills: 3, Pharmacy: [facility] Start Date: 04/23/24 Status: Ordered diazePAM 5 mg oral tablet TAKE 1 TABLET BY MOUTH DAILY NEEDED FOR ANXIETY Start Date: 11/12/22 Status: Ordered FLUoxetine 20 mg oral capsule Start: 04/23/24 3:34:00 PM EDT, 1 cap, PO, Daily Start Date: 04/23/24 Status: Ordered FLUoxetine 40 mg oral capsule Start: 04/23/24 3:34:00 PM EDT, 1 cap, PO, Daily Start Date: 04/23/24 Status: Ordered fluticasone 50 mcg/inh nasal spray Start: 04/23/24 3:15:00 PM EDT, See Instructions, 1 spray each nostril bid Start Date: 04/23/24 Status: Ordered Fosamax 35 mg oral tablet Start: 12/17/23 5:38:00 PM EDT, 1 tab, PO, q7days, Disp# 12 tab, Refills: 3, Pharmacy: [facility] Start Date: 12/17/23 Status: Ordered losartan 25 mg oral tablet Start: 04/23/24 3:13:00 PM EDT, 1 tab, PO, bid Start Date: 04/23/24 Status: Ordered magnesium oxide 400 mg (241.3 mg elemental magnesium) oral tablet Start: 02/07/22 1:07:00 PM EDT, 1 tab, PO, qAM Start Date: 02/07/22 Status: Ordered naloxone 4 mg/0.25 mL nasal spray Start: 04/23/24 3:59:00 PM EDT, 1 spray, intranasal, ONCE, Disp# 2 each, use one spray in one nostril. if an additional dose is needed, alternate nostril may repeat every 2 to 3 minutes until patient responds, PRN: sedation, Pharmacy: [facility] Start Date: 04/23/24 Status: Ordered Neuriva Brain performance Plus Start: 12/17/23 3:01:00 PM EDT Start Date: 12/17/23 Status: Ordered nystatin 100,000 units/g topical cream Start: 09/10/23 12:55:00 PM EST, See Instructions, Disp# 30 g, Refills: 5, apply to affected area twice daily, Pharmacy: [facility] Start Date: 09/10/23 Status: Ordered omeprazole 40 mg oral delayed release capsule Start: 12/24/23 11:51:00 AM EDT, See Instructions, Disp# 90 cap, Refills: 3, TAKE 1 CAPSULE BY MOUTH ONCE DAILY, Pharmacy: [facility] Start Date: 12/24/23 Status: Ordered oxyCODONE 5 mg oral tablet Start: 04/23/24 3:58:00 PM EDT, 1 tab, PO, q6h, Disp# 90 tab, Refills: 0, PRN: as needed for pain, Pharmacy: [facility] Start Date: 04/23/24 Status: Ordered potassium chloride Start: 12/17/23 3:01:00 PM EDT Start Date: 12/17/23 Status: Ordered rizatriptan 10 mg oral tablet Start: 12/24/23 11:44:00 AM EDT, See Instructions, Disp# 9 tab, Refills: 0, 1 tab PO STAT with onset of headache may repeat dose once in 2 hours MDD 2 tablets, Pharmacy: [facility] Start Date: 12/24/23 Status: Ordered sodium bicarbonate Start: 12/24/23 10:55:00 AM EDT, 2000mg Start Date: 12/24/23 Status: Ordered traZODone 150 mg oral tablet Start: 08/07/22 2:18:00 PM EST, 1 tab, PO, qhs, as needed--orderd from [facility] Start Date: 08/07/22 Status: Ordered Mental Status 04/21/24 Barriers to Learning one year None evide nt Mandatory Health Literacy Documentation Yes Health Literacy Communication Barriers N ever Primary Language [place] Problem List Condition Confirmation Course Effective Dates Status H ealth Status Informant Diarrhea Confirmed Active Depression Confirmed Active Alcohol abuse Confirmed Active Arthritis of both hands Confirmed Active Chronic hyponatremia Confirmed Active Liver cirrhosis Confirmed Active H/O neutropenia Confirmed Active Hypertension Confirmed Active Skin lesion of face Confirmed Active Urine leukocytes increased Confirmed Active Anorexia Confirmed Active Migraine without aura Confirmed Active Osteoarthritis of right knee Confirmed Active Osteoporosis Confirmed Active Left knee pain Confirmed Active Pulmonary HTN Confirmed Active Shoulder pain Confirmed Active Lumbar spinal stenosis Confirmed Active Thrombocytopenia Confirmed Active Urinary urgency Confirmed Active Weight loss Confirmed Active Diagnosis Diagnosis Type Effective Dates Health Status Clinical Service Informant Osteoarthritis of knees, bilateral Discharge Diagnosis 04/21/24 Procedures Procedure Date Related Diagnosis Body Site Status EGD - esophagogastroduodenos copy 1, 2, 3 02/26/24 Completed Mammogram 4 02/09/24 Completed Colonoscopy 5, 6, 7 12/01/23 Compl eted Knee 8 08/05/23 Completed Radio-frequency ablation system 9 10/30/22 Completed Arthroscopic shoulder procedure Completed Gertrudis hole 10 Completed Carpal tunnel Completed Cervical spinal fusion Co mpleted Cholecystectomy Completed Hysterectomy Completed 1- Z-line regular, 40 cm from the incisors. - Grade II esophageal varices. - Erythematous mucosa in the gastric fundus. Biopsied. - Erythematous mucosa in the greater curvature of the gastric body. - Erythematous mucosa in the antrum. Biopsied. - Normal second portion of the duodenum. Biopsied. - The examination was otherwise normal. 2A) Duodenum, biopsy: No significant pathology. B) Gastric antrum, biopsy: Congestion and epithelial repair suggestive of healing erosion. COMMENT: No Helicobacter pylori organisms are identified on an immunohistochemical stain for H. pylori. C) Gastric fundus, biopsy: No significant pathology. 3Followup with our GI office. 4one year follow up done at [facility] 5Repeat colonoscopy in 10 years. 6A) Colon, ascending, biopsy: No significant pathology B) Colon, sigmoid, biopsy: No significant pathology 7- The examined portion of the ileum was normal. - The sigmoid colon and ascending colon are normal. Biopsied. - The examination was otherwise normal on direct and retroflexion views. 8left 9Left L4, L5 and S1 medial branch radio-frequency ablation 10surgery Social History Social History Type Response Smoking Status Former Smoker, quit > 1 yr Sex Female Sex Representation Female (finding) Outpatient Note * PELON Andujar Dennis: PERFORM Event Display: .Outpt Note Authored Date: [id number] OUTPATIENT NOTE Name: JUHI WHITFIELD Patient Number:1 [id number] : 1960 Date of Service: 04/21/2024 HPI: This 64-year-old female presents to the clinic today for bilateral knee Euflexxa injection #1.Patient states her last series of viscosupplementation was in August of this year. Patient complains of pain in both knees but states that her left knee hurts more than her right and that her range of motion has not full. Physical examination: Bilateral knees; range of motion of the right knee actively is from 0 degreesof extension to 120 degrees of flexion. In her left knee she is able to reach 4 degrees of extension and 108 degrees of flexion. Patient does experience medial joint line tenderness when the knees are palpated in the flexed position. There is audible crepitation with passive range of motion. I was able to slightly manipulate her right patella with palpable crepitation. Her left patella is not mobile due to arthritic change. Patient had no laxity with varus or valgus stressing. AP drawer sign and Lala test were negative. Patient was neurovascularly intact in both lower extremities. Impression: Bilateral knee osteoarthritis Procedure: Patient was seated on the edge of the table with both knee placed in the flexed position. Using the cap of the needle the lateral joint space of each knee was marked. A timeout was performed with the patient and she verbalizes that we will proceed with bilateral knee Euflexxa injection #1. Marked site as cleansed with a Betadine swab, anesthetized with ethyl chloride spray, and wiped clean with alcohol soaked 4 x 4. A 22-gauge needle connected to a prefilled syringe containing Euflexxa was easily passed through the lateral joint space of each knee and injected free-flowing without meeting resistance. Upon removal of the needle patient had no bleeding. Site was again cleansed withan alcohol soaked 4 x 4, wiped dry with a sterile 4 x 4 and covered with a Band-Aid. RADHA Grant served as a witness for this procedure. Plan: Patient was advised to watch for signs symptoms of infection if any should occur she was advised to either contact her clinic or go to the emergency department immediately. Patient verbalized understanding of all information provided during today's visit. She thanks for the care that she received. If she has questions or concerns should arise prior to her next injection in 1 week, she will contact the clinic. This chart was completed utilizing PPTV voice recognition software. Grammatical errors,random word insertions, pronoun errors, and in complete sentences are an occasional consequence of the system. Any questions or concerns about the content, text, or information contained within the body of this dictation should be addressed directly to the physician for clarification. Electronic Signature on File Electronically Reviewed/Signed by: Amos Andujar PA-C Author Signature Dt/Tm:04/21/2024 03:47 PM Division of Sports Medicine Electronically Reviewed/Signed by: MD Vivienne Coleignaltaf Signature Dt/Tm: 04/22/2024 08:55 AM [facility] [employer] Department of Orthopaedics and Rehabilitation [facility] [address], [place] [address] [place] Patient Care team information Care Team Personnel Name: Maia Prakash DO, Mariana Annette Position: Physician - Family Med Member Role: Primary Care Provider Address: [address] [place] [address], [place] [address] Care Team Related Persons Name: ZONIA NOVAK
--- OUTSIDE RECORDS SUMMARY | 2024-04-26 14:57 | External Medical Summary | Continuity of Care Document ---
Author Name Unknown Organization [address] Address [address] [place] [address] DR [place] SLEET[place]EPAM [id number] Care Team Providers Care Pit Recorder Name Role Phone Swetha [facility] justino [phone] Encounter [facility] [id number] Date(s): 04/23/24 - 04/23/[address] [place] [address], [address] [place] [address] [phone] Encounter Diagnosis Liver cirrhosis(Discharge Diagnosis) - 04/23/24 Lumbar spinal stenosis(Discharge Diagnosis) - 04/23/24 Chronic back pain(Discharge Diagnosis) - 04/23/24 Discharge Disposition: Home or Self Care Attending Physician: Maia Prakash DO, Mariana Annette Referring Physician: Maia Prakash DO, Mariana Annette Allergies, Adverse Reactions, Alerts Substance Criticality Severity Reaction Reaction Severity Status Rexulti feeling unstable Act milan gabapentin confusion Active Abilify seizure activity Act milan Allergy Not found in Search 1 watery eyes Sneezing Active 1Seasonal allergies Assessment and Plan Extracted from: Title:Office Visit Note Author:Maia Prakash DO, Mariana Annette Date:04/23/24 1.Liver cirrhosis 2.Lumbar spinal stenosis 3.Chronic back pain Due to failed injections and ablations, not surgical candidate, will start oxycodone 5mg q6h PRN pain (90 tabs sent to pharmacy), discussed that with hx of cirrhosis she is at higher risk for sedation with opiate medications, pt and aware, naloxone also sent to pharmacy. Pt/ to call if overly sedated. Will f/u in 6 weeks Immunizations Given and Recorded Vaccine Date Status [...] bid, Disp# 180 tab, Refills: 3, Pharmacy: [facility] Start Date: 04/23/24 Status: Ordered diazePAM 5 [...] q7days, Disp# 12 tab, Refills: 3, Pharmacy: [facility] Start Date: 12/17/23 Status: Ordered losartan 25 [...] minutes until patient responds, PRN: sedation, Pharmacy: [facility] Start Date: 04/23/24 Status: Ordered Neuriva Brain performance Plus Start: 12/17/23 3:01:00 PM EDT Start Date: 12/17/23 Status: Ordered nystatin 100,000 units/g topical cream Start: 09/10/23 12:55:00 PM EST, See Instructions, Disp# 30 g, Refills: 5, apply to affected area twice daily, Pharmacy: [facility] Start Date: 09/10/23 Status: Ordered omeprazole 40 mg oral delayed release capsule Start: 12/24/23 11:51:00 AM EDT, See Instructions, Disp# 90 cap, Refills: 3, TAKE 1 CAPSULE BY MOUTH ONCE DAILY, Pharmacy: [facility] Start Date: 12/24/23 Status: Ordered oxyCODONE 5 mg oral tablet Start: 04/23/24 3:58:00 PM EDT, 1 tab, PO, q6h, Disp# 90 tab, Refills: 0, PRN: as needed for pain, Pharmacy: [facility] Start Date: 04/23/24 Status: Ordered potassium chloride Start: 12/17/23 3:01:00 PM EDT Start Date: 12/17/23 Status: Ordered rizatriptan 10 mg oral tablet Start: 12/24/23 11:44:00 AM EDT, See Instructions, Disp# 9 tab, Refills: 0, 1 tab PO STAT with onset of headache may repeat dose once in 2 hours MDD 2 tablets, Pharmacy: [facility] Start Date: 12/24/23 Status: Ordered sodium bicarbonate Start: 12/24/23 10:55:00 AM EDT, 2000mg Start Date: 12/24/23 Status: Ordered traZODone 150 mg oral tablet Start: 08/07/22 2:18:00 PM EST, 1 tab, PO, qhs, as needed--orderd from [place] Start Date: 08/07/22 Status: Ordered Mental Status 04/23/24 Barriers to Learning one year None evide nt Mandatory Health Literacy Documentation Yes Health Literacy Communication Barriers N ever Primary Language Mohawk Problem List Condition Confirmation Course Effective Dates [...] Diagnosis Diagnosis Type Effective Dates Health Status Cl inical Service Informant Lumbar spinal stenosis Discharge Diagnosis 04/23/24 Non-Specified Liver cirrhosis Discharge Diagnosis 04/23/24 Non-Specified Chronic back pain Discharge Diagnosis 04/23/24 Non-Specified Procedures Procedure Date Related Diagnosis Body Site Status EGD - esophagogastroduodenos copy 1, 2, 3 02/26/24 Completed Mammogram 4 02/09/24 Completed Colonoscopy 5, 6, 7 12/01/23 Compl eted Knee 8 08/05/23 Completed Radio-frequency ablation system 9 10/30/22 Completed Arthroscopic shoulder procedure Completed [place] hole 10 Completed Carpal tunnel Completed Cervical [...] office. 4one year follow up done at [facility] 5Repeat colonoscopy in 10 years. 6A) Colon, ascending, biopsy: No significant pathology B) Colon, sigmoid, biopsy: No significant pathology 7- The examined portion of the ileum was normal. - The sigmoid colon and ascending colon are normal. Biopsied. - The examination was otherwise normal on direct and retroflexion views. 8left 9Left L4, L5 and S1 medial branch radio-frequency ablation 10surgery Vital Signs Most recent to oldest [Reference Range]: 1 Patient Weight 73.2 kg (04/23/24 3:16 PM) Heart Rate 92 bpm (04/23/24 3:16 PM) Respiratory Rate 18 br/min (04/23/24 3:16 PM) Blood Pressure 132/76mmHg (04/23/24 3:16 PM) Social History Social History Type Response Smoking Status Former Smoker, quit > 1 yr Sex Female Sex Representation Female (finding) FCM Outpt Note * Maia Prakash DO, Mariana Annette: PERFORM Event Display: FCM Outpt Note Authored Date: [id number] Chief Complaint f/u GI visit and increased pain in back History of Present Illness Presents to discuss chronic back pain Backpain 2/2 Spinal stenosis - had CT and MRI showing severe spinal canal stenosis at L3-4 and L4-5, severe stenosis at L4-L5 with impingement on L5 nerve roots. recommend surgical consult for decompression - pt not surgical candidate at this point due to chronic conditions - she has a hx of cirrhosis and is pending a hepatology evaluation - her current pain regimen includes tylenol 650mg q8h, - she is also on diazepam daily per psych for anxiety - has been on gabapentin but did not tolerate this due to dizziness, "feeling goofy" - has been on oxycodone 5mg while in the hospital, this helped tame the pain down Cirrhosis with esophageal varices - advised to switch from metoprolol to coreg - has been following with GI, was also referred to hepatology Recently established with nephrology for hyponatremia, has f/u in June. She is awaiting a bone marrow biopsyon 04/29 for thrombocytopenia and leukopenia. Physical Exam Vitals & Measurements HR:92(Monitored) RR:18 BP:132/76 SpO2:98% WT:73.2kg WT:73.200kg(Dosing) PHQ2 Data(Data Documented on:04/23/2024 15:16) Emotional health assessment POSITIVE PHQ-9 Data(Data Documented on:04/23/2024 15:23) PHQ-9 Severity Score:20 Thoughts that you would be better off or of hurting yourself in some way?Not at All Depression Risk:Elevated General Anxiety Disorder Screening: JACQUES-7 Score:6 JACQUES-7 Problem Severity:Not at all Assessment/Plan 1.Liver cirrhosis 2.Lumbar spinal stenosis 3.Chronic back pain Due to failed injections and ablations, not surgical candidate, will start oxycodone 5mg q6h PRN pain (90 tabs sent to pharmacy), discussed that with hx of cirrhosis she is at higher risk for sedation with opiate medications, pt and aware, naloxone also sent to pharmacy. Pt/ to call if overly sedated. Will f/u in 6 weeks Attestation Time spent: Pre-visit planning: _5 Lbtb-fr-uqda visit: _41 Post-visit (orders/documentation/coordination of care):5 Total visit time: _51 Problem List/Past Medical History Ongoing Alcohol abuse Anorexia Arthritis of both hands Chronic hyponatremia Depression Diarrhea H/O neutropenia Hypertension Left knee pain Liver cirrhosis Lumbar spinal stenosis Migraine without aura Osteoarthritis of right knee Osteoporosis Pulmonary HTN Shoulder pain Skin lesion of face Thrombocytopenia Urinary urgency Urine leukocytes increased Weight loss Resolved Alcoholic Procedure/Surgical History EGD - esophagogastroduodenoscopy| Service Date: 02/26/2024Mammogram| Service Date: 02/09/2024olonoscopy| Service Date: 12/01/2023Knee| Service Date: 08/05/2023Radio-frequency ablationsystem| Service Date: 10/30/2022HysterectomyCholecystectomyCarpal tunnelArthroscopic melisa ulder procedureCervical spinal fusionBurr hole Medications acetaminophen, 650 mg, PO, q8h alendronate(Fosamax 35 mg oral tablet), 35 mg= 1 tab, PO, q7days, 3 refills busPIRone(busPIRone 15 mg oral tablet) busPIRone(BuSpar Dividose 30 mg oral tablet), 30 mg= 1 tab, PO, bid calcium citrate carvedilol(Coreg 3.125 mg oral tablet), 3.125 mg= 1 tab, PO, bid, 3 refills diazePAM(diazePAM 5 mg oral tablet) FLUoxetine(FLUoxetine 40 mg oral capsule), 40 mg= 1 cap, PO, Daily FLUoxetine(FLUoxetine 20 mg oral capsule), 20 mg= 1 cap, PO, Daily fluticasone nasal(fluticasone 50 mcg/inh nasal spray), See Instructions losartan(losartan 25 mg oral tablet), 25 mg= 1 tab, PO, bid magnesium oxide(magnesium oxide 400 mg (241.3 mg elemental magnesium) oral tablet), 400 mg= 1 tab, PO, qAM multivitamin(Neuriva Brain performance Plus) multivitamin with minerals(Centrum Silver) naloxone(naloxone 4 mg/0.25 mL nasal spray), 1 spray, intranasal, ONCE, PRN nystatin topical(nystatin 100,000 units/g topical cream), See Instructions omeprazole(omeprazole 40 mg oral delayed release capsule), See Instructions, 3 refills oxyCODONE(oxyCODONE 5 mg oral tablet), 5 mg= 1 tab, PO, q6h, PRN potassium chloride rizatriptan(rizatriptan 10 mg oral tablet), See Instructions sodium bicarbonate traZODone(traZODone 150 mg oral tablet), 150 mg= 1 tab, PO, qhs Allergies Abilifyseizure activity Allergy Not found in Searchwatery eyes, Sneezing Rexultifeeling unstable gabapentinconfusion Social History Smoking Status Former Smoker, quit > 1 yr Alcohol - Low Risk Type:Beer - Comments: 3 beers per week Substance Abuse - Denies Substance Abuse Tobacco - Denies Tobacco Use Family History Diabetes type: Unknown. Stroke: Unknown. Health Status Family Member(s) Immunizations Vaccine Date Status SARS-CoV-2 (COVID-19) mRNA BNT-162b2 vax 05/31/2021 Recorded Comments : 2021-10-18: Historical information-source unspecified SARS-CoV-2 (COVID-19) mRNA BNT-162b2 vax 11/04/2020 Recorded Comments : 2021-10-18: Historical information-source unspecified SARS-CoV-2 (COVID-19) mRNA BNT-162b2 vax 10/14/2020 Recorded Comments : 2021-10-18: Historical information-source unspecified zoster vaccine, inactivated 04/28/2020 Recorded Comments : 2021-10-18: Historical information-source unspecified zoster vaccine, inactivated 08/09/2019 Recorded Comments : 2021-10-18: Historical information-source unspecified tetanus toxoids-diphtheria, Td (Adult) 01/04/2019 Recorded Comments : 2021-10-18: Historical information-source unspecified pneumococcal 23-valent vaccine 05/04/2012 Recorded Comments : 2021-10-18: Historical information-source unspecified tetanus/diphtheria/pertuss, acel (Tdap) 08/20/2010 Recorded Comments : 2021-10-18: Historical information-source unspecified tetanus toxoids-diphtheria, Td (Adult) 12/09/2002 Recorded Comments : 2021-10-18: Historical information-source unspecified tetanus toxoids-diphtheria, Td (Adult) 08/18/1992 Recorded Comments : 2021-10-18: Historical information-source unspecified Recommendations Health Maintenance Pending(in the next year) OverDue Adult Influenza Vaccine due02/15/24and every 1year Due Adult COVID-19 Vaccination due04/23/24Unknown Frequency Adult Social Determinants of Health Screening due04/23/24Unknown Frequency Falls Plan of Care due04/23/24Unknown Frequency Lipid Screening due04/23/24Unknown Frequency Pneumococcal Vaccine Older Adults due04/23/24One-time only Satisfied(in the past 1 year) Satisfied Body Mass Index on04/16/24.Satisfied by RADHA Weinstein Erin Breast Cancer Screening on02/09/24.Satisfied by RADHA Shah Angela Depression Follow Up Plan on04/23/24.Satisfied by RADHA Arteaga Natalie Electronic Signature on File Electronically Reviewed/Signed by: Swetha Prakash DO Author Signature Dt/Tm:04/23/2024 05:01 PM Department of Family Medicine [facility] Patient Care team information Care Team Personnel Name: Maia Prakash DO, Mariana Annette Position: Physician - Family Med Member Role: Primary Care Provider Address: [address] [place] [address] Care Team Related Persons Name: ZONIA NOVAK
[2024-04-26 15:00] LABS: Appearance Urine Cloudy (Clear); Bacteria Urine Automated 4+ (None Seen); Bilirubin Urine Negative (Negative); Blood Urine Negative (Negative); Cast Urine Automated >20 /lpf (0-2); Color Urine Dark Yellow; Glucose Urine UA Negative (Negative); Hyaline Casts Urine Present /lpf (None Presnt); Ketones Urine Trace (Negative); Leukocyte Esterase Urine 2+ (Negative); Nitrite Urine Negative (Negative); Protein Urine Negative (Negative); RBC Urine Automated 0-2 /hpf (0-2); Specific Gravity Urine 1.019 (1.000-1.030); Urobilinogen Urine Negative (Negative); WBC Urine Automated 21-50 /hpf (0-5); pH Urine 5.5 (4.5-7.5)
--- NOTE | 2024-04-26 15:01 | Electrocardiogram Report ---
Test Reason : Blood Pressure : */* mmHG Vent. Rate : 59 BPM Atrial Rate : 59 BPM P-R Int : 188 ms QRS Dur : 82 ms QT Int : 500 ms P-R-T Axes : 42 3 29 degrees QTcB Int : 495 ms Sinus bradycardia Prolonged QT Abnormal ECG When compared with ECG of 25-Mar-2024 19:20, No significant change was found Confirmed by Bayron Rodriguez ([id number]) on 04/26/2024 3:01:14 PM Referred By: REFERRED SELF Confirmed By: Bayron Rodriguez
[2024-04-26] MEDS: SODIUM CHLORIDE 0.9% 500 ML IV ONE (15:03)
[2024-04-26] MEDS: cefTRIAXone SODIUM 2,000 MG/50 ML BAG IV STA (15:37)
--- NOTE | 2024-04-26 17:01 | History & Physical Report ---
Date of Service April 26, 2024 Assessment & Plan (1) Weakness: Plan: - chronic since July 2023; acute increase likely secondary to UTI or diarrhea - CT head and CXR negative on admission - follows with rheumatology, hepatology, heme/onc, and neurology outpatient due to ongoing weakness and fatigue - Tick borne panel in 04/2023 negative - Bone marrow biopsy to be taken by heme/onc outpt due to ongoing leukopenia/thrombocytopenia - B12 04/21 WNL - TSH mildly elevated 4.9, free T4 WNL on admission - no recent thiamine level, pending - thiamine 100 mg QAM ordered as could be contributing to ongoing symptoms (2) Acute UTI: Plan: - UA on admission with WBC, hyaline casts, and bacteria - Leukocytopenia, chronic - afebrile and asymptomatic - Given 2 L NSS in ER with 2g Rocephin - will hold off on gentle fluid resuscitation due to ongoing fluid restriction due to chronic hyponatremia - Urine culture pending - Will continue with ceftriaxone 2G Q24h (3) Diarrhea: Plan: - ongoing diarrhea since July 2023 - possibly contributing to ongoing weakness and history of hyponatremia - Ongoing diarrhea, most recent stool culture 2020, stool culture ordered Plan VTE ppx: SCDs Diet: regular with 1500 mL fluid restriction Code status: Full Code Chronic stable diagnoses: Chronic hyponatremia - continue sodium chloride, Na+ stable on admission, on 1500 mL fluid restricted diet out pt Depression - continue home buspirone and fluoxetine, diazepam and trazodone prn Gerd - continue omeprazole Admission and Anticipated Discharge Date Admission Date: 04/26/24 History of Present Illness Chief Complaint: weakness Primary Care Provider: Swetha Prakash DO Patient is a 64-year-old female with a past medical history of generalized weakness, hyponatremia, spinal stenosis, alcoholism, depression, GERD, hepatitis C, leukopenia/thrombocytopenia, alcohol induced cardiomyopathy, pulmonary hypertension, chronic pancreatitis, liver cirrhosis, migraines, osteoporosis, and tricuspid regurgitation. patient presents today due to ongoing weakness and fatigue since July. She stated that she follows with 8-9 different doctors and nobody can figure out what is wrong. She frequently loses her balance, has poor memory, loses her train of thought, is shaky, and falls a lot. She states that she has ' almost falls' daily. Today she had 2 close falls and fell once. She denies hitting her head today. She stated that today she felt weak and fatigued than normal. She also has an increase in shakiness. She has headaches often, but not migraines. She also stated that she has had chronic diarrhea since July. She stated that about 60% of her bowel movements are diarrhea. She has had diarrhea all day today. She stated that the consistency varies between soft and watery for the past 9 months. She stated that when she stands up she just feels weak but not dizzy. The patient shared that she often just lays around because she is too scared of falling and feels weak. She denies headache, dizziness, lightheadedness, rhinorrhea, sore throat, cough, shortness of breath, chest pain, abdominal pain, nausea, vomiting, numbness, tingling, dysuria, increased urinary frequency, and hematuria today. She stated that she has had 3 big falls in the past when she has hit her head. She had a hematoma about 23 years ago. She lives at home with her on 1 floor. They do live on the second floor of a building and have a stair chair. Patient previously smoked tobacco but quit in the . Patient has a history of alcohol use, she drank a sixpack a day and quit about 3 years ago. Patient denies illicit drug use. She wishes to be full code at this time. Patient stated that she is to schedule surgery for her lumbar stenosis but is holding off due to ongoing cardiomyopathy, tricuspid regurg., and pulmonary HTN. Patient stated that she is scheduled for a bone marrow biopsy tomorrow due to ongoing leukopenia and thrombocytopenia. Allergies Allergy/AdvReac Type Severity Reaction Status Date / Time aripiprazole AdvReac Severe seizure Verified 04/23/24 12:53 activity per S EMR gabapentin AdvReac Severe Confusion Verified 04/23/24 12:53 acetaminophen AdvReac Unknown per S Verified 04/23/24 12:53 EMR, to be avoided given cirrhosis ibuprofen AdvReac Unknown per S Verified 04/23/24 12:53 EMR to be avoided given cirrhosis Home Medications Medication Instructions Recorded Confirmed Type rizatriptan 10 mg disintegrating 10 mg PO DIRECTED PRN Migraine 11/21/21 04/26/24 History tablet Headache calcium carbonate 600 mg-vitamin 1 cap PO QAM 08/02/22 04/26/24 History D3 12.5 mcg (500 unit) capsule (Calcium 600 with Vitamin D3) alendronate 35 mg tablet 35 mg PO WK 04/20/23 04/26/24 History buspirone 30 mg tablet 30 mg PO BID 04/20/23 04/26/24 History diazepam 5 mg tablet 5 mg PO BID PRN Anxiety 04/20/23 04/26/24 History multivitamin-ferrous 1 tab PO QAM 04/20/23 04/26/24 History fumarate-folic acid 18 mg-400 mcg tablet (Centrum Women) omeprazole 40 mg capsule,delayed 40 mg PO DAILY gerd 04/20/23 04/26/24 History release losartan 25 mg tablet 25 mg PO BID 07/31/23 04/26/24 History nystatin 100,000 unit/gram topical 1 applic topical UD PRN Skin 07/31/23 04/26/24 History cream Irritation sodium chloride 1,000 mg soluble 1,000 mg PO BID 30 days #60 tabs 03/29/24 04/26/24 Rx tablet clotrimazole 2 % vaginal cream 1 appful topical UD PRN Vaginal 04/23/24 04/26/24 History Dryness carvedilol 3.125 mg tablet 3.125 mg PO BID 04/26/24 04/26/24 History fluoxetine 20 mg capsule See Rx Instructions .Route .COMPLEX 04/26/24 04/26/24 History fluoxetine 40 mg capsule See Rx Instructions .Route .COMPLEX 04/26/24 04/26/24 History oxycodone 5 mg tablet 5 mg PO Q6H PRN Pain 04/26/24 04/26/24 History trazodone 150 mg tablet 225 mg PO HS PRN Insomnia 04/26/24 04/26/24 History Past Med/Surg History Problem List (Updated 04/28/24 @ 09:31 by Richard Daly MD) Acute ischemic stroke Diarrhea Acute UTI (Acute) Bradycardia (Acute) Acute dehydration (Acute) Altered mental status (Acute) Weakness (Acute) Hypotension (Acute) Vitamin D deficiency Neutropenia Hyponatremia with decreased serum osmolality Generalized weakness (Acute) Spinal stenosis of lumbar region Incontinence (Chronic) Myofascial pain Dermatochalasis of both upper eyelids 10/28/23 Shoulder pain Status post arthroscopy of left knee Knee pain, left Encounter for pre-operative examination Episodes of speech arrest 04/21/23 Episodes of staring 04/21/23 Lumbar spondylosis Thrombocytopenia Spinal stenosis Positive ROSANGELA (antinuclear antibody) Scalp hematoma Gastritis 01/30/22 Elevated LFTs Ambulatory dysfunction (Acute) Frequent falls (Acute) Chronic pain disorder Hypocalcemia Anemia Leukopenia Encephalopathy Metabolic acidosis (Acute) Hypomagnesemia (Acute) Chronic hyponatremia S/P cervical spinal fusion ROM WNL History of onel hole surgery History of arthroscopic procedure on shoulder Rt History of carpal tunnel surgery Rt COPD (chronic obstructive pulmonary disease) pt denies Alcoholism (Acute) Chronic pancreatitis pt denies Nonischemic cardiomyopathy Uterine leiomyoma (Chronic 07/18/11) 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/11) Seizure disorder (Chronic 05/16/12) Medical History Lumbar stenosis 03/26/24 MRI showed significant stenosis lumbar spine; pt was originally to have lumbar decompression/fusion but put on hold pending evaluation for pancytopenia History of recent hospitalization [facility] 03/26/24-03/29/24: dx: hyponatremia, weakness, neutropenia, LBP. pt started on fluid restriction and sodium tabs. heme recommended bone marrow bx for neutropenia. ortho/spine consulted for lumbar spinal stenosis but operative mgmt deferred 2/2 comorbidities and pancytopenia. 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 These have been stopped... 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 These have been stopped" Spinal stenosis GERD (gastroesophageal reflux disease) controlled, stable per pt Difficult airway for intubation limited cervical spine extension; s/p cervical spinal fusion Lumbar facet joint syndrome Lumbar spondylosis Hx of falling last fall over 1 year ago per patient Hx of gastritis patient denies recent flare Hx of encephalopathy no issues since stopping ETOH use 2021 COPD (chronic obstructive pulmonary disease) former smoker History of alcoholism (2021) quit 2021 (drank 6 beers/day) Hx of tinnitus Hx of migraines Pulmonary hypertension Hx of per 09/2019 ECHO: Moderate pulmonary HTN: Tiffanie PASP 51mmhg, assuming RAP of 3mmhg; per 03/2024 ECHO: RVSP 31mmHg Seasonal allergies Non-ischemic cardiomyopathy alcoholic CM; EF 35-40% in 2017, 60-65% in 2019 Hx of chronic pancreatitis History of anemia Chronic pain disorder back Positive ROSANGELA (antinuclear antibody) Stress incontinence Chronic cough Follows with [facility] pulm - pt. reports due to pollen and states has nearly resolved in recent months HTN (hypertension) controlled, stable per pt Cirrhosis Hep C induced; pt recently dx with recurrence of Hep C and awaiting tx with hepatology History of subdural hematoma (2010) 2010 Osteoarthritis History of seizure (2010) Following subdural hematoma 2010 from fall. [facility]; per 01/01/24 Neuro note, pt had 'episode of speech and movement arrest in the context of a histyr of posttraumatic seizures' 04/2023. Had normal EEG. Pt advised by neuro to start keppra but pt refuses. Surgical History Hx of blepharoplasty (01/2024) History of craniotomy (2010) Due to subdural hematoma from fall Hx of hysterectomy Hx of cholecystectomy History of carpal tunnel release right Hx of arthroscopy of shoulder right Hx of arthroscopy of left knee S/P cervical spinal fusion C4-C7 per imaging review History of onel hole surgery (2010) lead to craniotomy History of esophagogastroduodenoscopy (EGD) History of colonoscopy Family History Mother Hypertension Other No family history of adverse response to anesthesia Social History Smoking Status: Former smoker Tobacco Type: Cigarettes Age Started Using Tobacco: 18; Age Quit Using Tobacco: 30; packs per day: 1; Cigarettes Per Day: 1 Pack a day.; Smoking End Date: quit 30 yr ago; Second Hand Exposure: No; Do You Dip or Chew Tobacco: No; Hx Alcohol Use: Yes Alcohol type: beer Alcohol Intake Frequency Comment: 5 beers/day Hx Substance Use: No Preferred Language: Latvian Communication Ability: Effective 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 current occupational status: unemployed How many Children do You have: 0 Other Information That Helps Us Care for You: No Feels Safe at Home: Yes Assistive Devices: Cane, Stair Lift and Walker Review of Systems Review of Systems: see HPI Physical Exam Physical Exam: The patient is awake, alert and oriented 3, well developed and well nourished, normocephalic and atraumatic, in no acute distress. Non-toxic appearing. HEENT- EOMI, mucous membranes moist. Hearing grossly intact. Heart-normal S1 and S2. No murmurs, rubs or gallops. Lungs-clear bilaterally, no respiratory distress, no accessory muscle use. Abdomen-normal bowel sounds and soft. No ascites noted. Non-tender. Extremities- no clubbing, cyanosis. Mild edema of right elbow due to saline infusion accumulation. Rheumatologic-normal range of motion. Psychiatric-flat affect. Results & Data Results & Data Vital Signs (Past 12 Hours) Vital Signs Temp Pulse Resp BP Pulse Ox O2 Del Method 04/26/24 16:30 64 14 130/70 04/26/24 16:00 69 16 128/71 04/26/24 15:30 150/68 H 04/26/24 15:30 72 15 150/68 H 99 04/26/24 15:06 67 12 99 04/26/24 14:30 68 15 140/83 99 04/26/24 12:35 68 04/26/24 12:00 63 18 123/74 97 04/26/24 11:06 57 L 17 95/53 L 04/26/24 10:51 56 L 12 99 Room Air 04/26/24 10:47 36.5 C 56 L 12 107/57 L 99 Room Air Code Status & VTE Plan Code Status FULL CODE VTE Prophylaxis Plan VTE Prophylaxis will be ordered: Yes Supervising Physician Co-Signing Physician Notes I personally saw and examined the patient. I independently reviewed the labs, EKG, imaging, problem list, medication list, past medical history and family history. I verified all rachel points and agree with Leah Sabillon PA-C with the foll owing exceptions and/or additions: 64 year old female presents to the ER acute on chronic generalized weakness. No specific urinary complaints but UA is infective appearing. Also recently started oxycodone in addition to chronic. O/E HS RRR, no murmurs, Chest CTAB, Abdo SNT, no pedal edema, no facial droops, PERRL, 5/5 power b/l equal A/P Generalized weakness - possible UTI, start ceftriaxone, hold oxycodone, PT/OT PG Care Time/CCT Total # of Minutes Spent Total Time Spent with Patient: Total time spent is greater than 50% in coordination of care (as documented) at patient's floor/unit and/or counseling patient: Coding Level of Care Code None Diagnoses Weakness R53.1 Acute UTI N39.0 Diarrhea, unspecified type R19.7 Diarrhea type: unspecified type (3) Diarrhea Diarrhea type: unspecified type Qualified Code(s): R19.7 - Diarrhea, unspecified
[2024-04-26] MEDS: busPIRone 15 MG TAB PO SCH (21:33)
[2024-04-26] MEDS: LOSARTAN POTASSIUM 25 MG TAB PO SCH (21:34)
[2024-04-26] MEDS: carvediloL 3.125 MG TAB PO SCH (21:34)
[2024-04-26] MEDS: SODIUM CHLORIDE 1 GM TABLET PO SCH (21:35)
[2024-04-26] MEDS: oxyCODONE HCL IR 5 MG TAB (IMMEDIATE RELEASE) PO PRN (21:37)
[2024-04-26] MEDS: traZODone HCL 50 MG TAB PO PRN (21:45)
[2024-04-27 07:27] LABS: Hematocrit (blood only) 30.4 % (37.0-47.0); Hemoglobin 10.7 g/dl (12.0-16.0); Mean Corpuscular Hemoglobin 34.3 pg (25.0-34.0); Mean Corpuscular Hgb Conc 35.2 g/dL (32.0-36.0); Mean Corpuscular Volume 97.4 fL (80.0-100.0); Mean Platelet Volume 8.3 fL (9.4-12.4); Platelet Count 86 K/uL (130-400); RDW Coefficient of Variation 13.1 % (11.5-14.5); RDW Standard Deviation 46.8 fL (36.4-46.3); Red Blood Count 3.12 M/uL (4.20-5.40); White Blood Count 2.29 K/ul (4.8-10.8)
[2024-04-27] MEDS: PANTOprazole 40 MG TAB PO SCH (07:36)
[2024-04-27] MEDS: THIAMINE HCL 100 MG TAB PO SCH (07:36)
[2024-04-27] MEDS: FLUoxetine HCL 20 MG CAP PO SCH (07:37)
[2024-04-27 07:38] LABS: BUN Creatinine Ratio 6.8 (10-20); Calcium 8.4 mg/dl (8.6-10.3); Creatinine Clr Calc Pharmacy 74.7 ml/min; Est GFR (African American) 100.2 ml/min; Est GFR (Non-African American) 86.4 ml/min; Potassium 4.2 mmol/L (3.5-5.1)
[2024-04-27] MEDS: CALCIUM 600MG + VIT D 400 IU TAB PO SCH (07:38)
[2024-04-27] MEDS: oxyCODONE HCL IR 5 MG TAB (IMMEDIATE RELEASE) PO PRN (07:50)
[2024-04-27] MEDS: diazePAM 5 MG TABLET PO PRN (10:43)
--- NOTE | 2024-04-27 15:08 | Magnetic Resonance Report ---
MR brain wo con CLINICAL HISTORY: weak, frequent headaches/falls, poor memory TECHNIQUE: Multiplanar and multisequence MR images of the brain were obtained without intravenous con trast. Comparison: Comparison is made to MRI brain 04/21/[address] head 04/26/2024 FINDINGS: There is a punctate focus of restricted diffusion in the left putamen. Foci of T2 and FLAIR hyperinte nsity are noted in the paraventricular areas consistent with chronic small vessel ischemic disease. E x vacuo ventriculomegaly and sulcal enlargement is noted compatible with diffuse volume loss. No mass is seen. There is no mass effect or midline shift. There is no evidence of acute intraparenchymal he morrhage. No extra axial fluid collections are seen. The corpus callosum, pituitary gland, and cerebe llar tonsils appear grossly unremarkable. Flow voids of the major intracranial arterial vessels are identified. The imaged portions of the para nasal sinuses, mastoid air cells, and orbits are unremarkable. IMPRESSION: Punctate focus of restricted diffusion in the left putamen is compatible with a tiny acute lacunar in farct ACT 112: Negative or not required by law. Electronically signed by: Jay Hernandez M.D. 04/27/2024 3:07 PM
[2024-04-27] MEDS: ONDANSETRON INJ 2 MG/ML 2 ML VIAL IV PRN (17:03)
[2024-04-27] MEDS: cefTRIAXone SODIUM 2,000 MG/50 ML BAG IV SCH (17:04)
[2024-04-27] MEDS: OPTIRAY 320 125ml IV ONE (18:21)
--- NOTE | 2024-04-27 20:04 | CT Scan Report ---
Exam(s): CTA NECK With Contrast IV Amt: 116 ml opti 320 EXAM: CT Angiography Neck With Intravenous Contrast CLINICAL HISTORY: Reason for exam: acute lacunar infarct. TECHNIQUE: Routine carotid CT angiography protocol was performed with intravenous contrast. NASCET criteria using the distal ICAs for comparison were used for evaluation of stenoses. Automated exposure control was utilized for the study. A dose lowering technique was utilized adhering to the principles of ALARA. MIP reconstructed images were created and reviewed. CONTRAST: Patient received 116 ml opti 320 of IV contrast COMPARISON: None. FINDINGS: VASCULATURE: Right common carotid artery: Mild atherosclerotic calcification seen at the right common carotid artery bifurcation and right proximal cervical internal carotid artery. No hemodynamically significant carotid stenosis. Right internal carotid artery: There is approximately 40% stenosis seen in the proximal right internal carotid artery. Right external carotid artery: Unremarkable. No occlusion. Right vertebral artery: Right vertebral arteries dominant. No occlusion or significant stenosis. No dissection. Left common carotid artery: Mild atherosclerotic calcifications are seen at the bifurcation of the left common carotid artery. Left internal carotid artery: Unremarkable. Extracranial segment is patent with no occlusion or significant stenosis. No dissection. Left external carotid artery: Unremarkable. No occlusion. Left vertebral artery: Unremarkable. No occlusion or significant stenosis. No dissection. NECK: Bones/joints: Unremarkable. No acute fracture. Soft tissues: Unremarkable. Lung apices: Clear. CAROTID STENOSIS REFERENCE USING NASCET CRITERIA: % ICA stenosis = (1 - narrowest ICA diameter/diameter of distal cervical ICA) x 100. Mild - <50% stenosis. Moderate - 50-69% stenosis. Severe - 70-94% stenosis. Near occlusion - 95-99% stenosis. Occluded - 100% stenosis. IMPRESSION: No evidence of hemodynamically significant carotid stenosis Electronically signed by: Christopher Garibay MD 04/27/24 20:03 PM
--- NOTE | 2024-04-27 20:10 | CT Scan Report ---
Exam(s): CTA HEAD With Contrast IV Amt: 116 ml opti 320 EXAM: CT Angiography Head With Intravenous Contrast CLINICAL HISTORY: Reason for exam: acute lacunar infarct. TECHNIQUE: Axial computed tomographic angiography images of the head with intravenous contrast. Automated exposure control was utilized for the study. A dose lowering technique was utilized adhering to the principles of ALARA. MIP reconstructed images were created and reviewed. CONTRAST: Patient received 116 ml opti 320 of IV contrast COMPARISON: No relevant prior studies available. FINDINGS: Right internal carotid artery: No acute findings. Intracranial segment is patent with no significant stenosis. No aneurysm. Right anterior cerebral artery: Unremarkable. No occlusion or significant stenosis. No aneurysm. Right middle cerebral artery: Unremarkable. No occlusion or significant stenosis. No aneurysm. Right posterior cerebral artery: Right P1 posterior cerebral artery is hypoplastic.. No occlusion or significant stenosis. No aneurysm. Right vertebral artery: Right vertebral artery is dominant. Left internal carotid artery: No acute findings. Intracranial segment is patent with no significant stenosis. No aneurysm. Left anterior cerebral artery: Unremarkable. No occlusion or significant stenosis. No aneurysm. Left middle cerebral artery: Unremarkable. No occlusion or significant stenosis. No aneurysm. Left posterior cerebral artery: Left P1 posterior cerebral artery is hypoplastic. Left vertebral artery: The left vertebral artery is hypoplastic. The P2 posterior cerebral arteries are supplied by posterior communicating arteries. Basilar artery: The basilar artery supplied by the right vertebral artery. No occlusion or significant stenosis. No aneurysm. IMPRESSION: 1. No acute intracranial arterial occlusion 2. Hypoplastic bilateral P1 posterior cerebral arteries. Electronically signed by: Christopher Garibay MD 04/27/24 20:10 PM
--- NOTE | 2024-04-27 23:02 | Hospitalist Progress Note ---
Date of Service April 27, 2024 Assessment & Plan (1) Weakness: Plan: Chronic since July 2023; acute increase likely secondary to UTI or diarrhea - CT head and CXR negative on admission - Follows with rheumatology, hepatology, heme/onc, and neurology outpatient due to ongoing weakness and fatigue - Bone marrow biopsy to be taken by heme/onc outpt due to ongoing leukopenia/thrombocytopenia - B12 04/21/24 WNL. Ammonia WNL. TSH mildly elevated 4.9, free T4 WNL on admission - No recent thiamine level, pending. Thiamine 100 mg QAM ordered as could be contributing to ongoing symptoms - Lyme screen negative this admission. Tick borne panel in 04/2023 negative. - Brain MRI ordered given ongoing weakness, frequent headaches/falls, and poor memory > Revealed a tiny acute lacunar infarct - Echo 03/25/24: EF 60-65%, no regional wall abnormalities. - CTA Head and Neck ordered - Neurology consulted (2) Acute UTI: Plan: UA on admission with WBC, hyaline casts, and bacteria - Leukocytopenia, chronic - afebrile and asymptomatic - Given 2 L NSS in ER with 2g Rocephin - will hold off on gentle fluid resuscitation due to ongoing fluid restriction due to chronic hyponatremia - Urine culture pending - Will continue with ceftriaxone 2G Q24h (3) Diarrhea: Plan: - ongoing diarrhea since July 2023 - possibly contributing to ongoing weakness and history of hyponatremia - Ongoing diarrhea, most recent stool culture 2020, stool culture ordered - could consider metamucil and/or pancreaze for chronic loose stools if stool studies are negative Plan Ordered ammonia and Lyme labs Ordered brain MRI, CTA head and neck Consulted neurology Reviewed echo records Discussed diet with RD VTE ppx: SCDs Diet: regular with 1500 mL fluid restriction Code status: Full Code Chronic stable diagnoses: Chronic hyponatremia - continue sodium chloride, Na+ stable on admission, on 1500 mL fluid restricted diet out pt Depression - continue home buspirone and fluoxetine, diazepam and trazodone prn Gerd - continue omeprazole Admission and Anticipated Discharge Date Admission Date: April 26, 2024 Supervising Physician Co-Signing Physician Notes Attending Attestation - Chart reviewed, care plan d/w PAM Goodman. I agree w/ the rachel components of her documentation. Jose Sam MD Subjective Patient seen and evaluated at bedside. She reports that she continues to feel weak. She notes this is a generalized weakness and not focused to any specific area. She reports frustration with not having an answer to this weakness despite multiple workups and doctor appointments. We discussed that she has a UTI for which she is receiving antibiotics. She denies any urinary symptoms. She reports intermittent loose stools, though she has not had a bowel movement since admission to check stool studies. We discussed her pending further workups. I was notified by RD that patient is refusing all food and will only drink protein shakes while here (though she does eat food at home). When I asked Mrs. Rivas about this, she reported "I just can't eat food in the hospital. Even thinking about it makes me lose my appetite." Physical Exam Physical Exam: General: No acute distress, nondiaphoretic, well-developed, well-nourished. Skin: The skin was without rashes, erythema, edema, or bruising. Cardiac: Regular rate and rhythm without murmurs gallops or rubs. Pulm: Clear to auscultation bilaterally without wheezes, rales or rhonchi. No respiratory distress. 96% on room air. Abdominal: Soft, nontender, nondistended. Bowel sounds present. Neuro: A&O x3. No focal neurological deficits. Psych: Flat affect. Results & Data Results & Data Vital Signs (Past 12 Hours) Vital Signs Temp Pulse Resp BP Pulse Ox Pulse Ox O2 Del Method 04/27/24 20:30 96 04/27/24 19:49 36.7 C 69 18 118/70 96 Room Air 04/27/24 15:00 36.8 C 69 16 132/81 96 Room Air O2 Del Method 04/27/24 20:30 Room Air 04/27/24 19:49 04/27/24 15:00 Laboratory Results Reviewed CBC Reviewed chemistries Reviewed urine culture PG Care Time/CCT Total # of Minutes Spent Total Time Spent with Patient: Total time spent is greater than 50% in coordination of care (as documented) at patient's floor/unit and/or counseling patient: Coding Level of Care Code 01995 SUB INP/OBS CARE 3/50MIN Diagnoses Weakness R53.1 Acute UTI N39.0 Diarrhea, unspecified type R19.7 Diarrhea type: unspecified type (3) Diarrhea Diarrhea type: unspecified type Qualified Code(s): R19.7 - Diarrhea, unspecified
[2024-04-28 08:34] LABS: Calcium 9.1 mg/dl (8.6-10.3); Potassium 4.1 mmol/L (3.5-5.1)
[2024-04-28 08:40] LABS: Creatinine Clr Calc Pharmacy 81.4 ml/min; Est GFR (African American) 106.9 ml/min; Est GFR (Non-African American) 92.2 ml/min
[2024-04-28 08:49] LABS: Hematocrit (blood only) 35.4 % (37.0-47.0); Hemoglobin 12.1 g/dl (12.0-16.0); Mean Corpuscular Hemoglobin 33.7 pg (25.0-34.0); Mean Corpuscular Hgb Conc 34.2 g/dL (32.0-36.0); Mean Corpuscular Volume 98.6 fL (80.0-100.0); Mean Platelet Volume 8.2 fL (9.4-12.4); Platelet Count 82 K/uL (130-400); RDW Coefficient of Variation 13.1 % (11.5-14.5); RDW Standard Deviation 47.3 fL (36.4-46.3); Red Blood Count 3.59 M/uL (4.20-5.40); White Blood Count 2.25 K/ul (4.8-10.8)
--- NOTE | 2024-04-28 09:25 | Neurology Consultation ---
Date of Consultation April 28, 2024 Assessment & Plan (1) Acute ischemic stroke: History of Present Illness Attending Physician: Jose Sam MD History of Present Illness S: pt with mri brain showing small tiny punctate acute ischemic stroke on left putamen area. pt this morning asymptomatic. no new symptoms. pt here for generalized weakness and other medical issues. chart reviewed. Admission HPI: Patient is a 64-year-old female with a past medical history of generalized weakness, hyponatremia, spinal stenosis, alcoholism, depression, GERD, hepatitis C, leukopenia/thrombocytopenia, alcohol induced cardiomyopathy, pulmonary hypertension, chronic pancreatitis, liver cirrhosis, migraines, osteoporosis, and tricuspid regurgitation. patient presents today due to ongoing weakness and fatigue since July. She stated that she follows with 8-9 different doctors and nobody can figure out what is wrong. She frequently loses her balance, has poor memory, loses her train of thought, is shaky, and falls a lot. She states that she has ' almost falls' daily. Today she had 2 close falls and fell once. She denies hitting her head today. She stated that today she felt weak and fatigued than normal. She also has an increase in shakiness. She has headaches often, but not migraines. She also stated that she has had chronic diarrhea since July. She stated that about 60% of her bowel movements are diarrhea. She has had diarrhea all day today. She stated that the consistency varies between soft and watery for the past 9 months. She stated that when she stands up she just feels weak but not dizzy. The patient shared that she often just lays around because she is too scared of falling and feels weak. She denies headache, dizziness, lightheadedness, rhinorrhea, sore throat, cough, shortness of breath, chest pain, abdominal pain, nausea, vomiting, numbness, tingling, dysuria, increased urinary frequency, and hematuria today. She stated that she has had 3 big falls in the past when she has hit her head. She had a hematoma about 23 years ago. She lives at home with her on 1 floor. They do live on the second floor of a building and have a stair chair. Patient previously smoked tobacco but quit in the . Patient has a history of alcohol use, she drank a sixpack a day and quit about 3 years ago. Patient denies illicit drug use. She wishes to be full code at this time. Patient stated that she is to schedule surgery for her lumbar stenosis but is holding off due to ongoing cardiomyopathy, tricuspid regurg., and pulmonary HTN. Patient stated that she is scheduled for a bone marrow biopsy tomorrow due to ongoing leukopenia and thrombocytopenia. Allergies Allergy/AdvReac Type Severity Reaction Status Date / Time aripiprazole AdvReac Severe seizure Verified 04/23/24 12:53 activity per S EMR gabapentin AdvReac Severe Confusion Verified 04/23/24 12:53 acetaminophen AdvReac Unknown per [facility] Verified 04/23/24 12:53 EMR, to be avoided given cirrhosis ibuprofen AdvReac Unknown per [facility] Verified 04/23/24 12:53 EMR to be avoided given cirrhosis Home Medications Medication Instructions Recorded Confirmed Type rizatriptan 10 mg disintegrating 10 mg PO DIRECTED PRN Migraine 11/21/21 04/26/24 History tablet Headache calcium carbonate 600 mg-vitamin 1 cap PO QAM 08/02/22 04/26/24 History D3 12.5 mcg (500 unit) capsule (Calcium 600 with Vitamin D3) alendronate 35 mg tablet 35 mg PO WK 04/20/23 04/26/24 History buspirone 30 mg tablet 30 mg PO BID 04/20/23 04/26/24 History diazepam 5 mg tablet 5 mg PO BID PRN Anxiety 04/20/23 04/26/24 History multivitamin-ferrous 1 tab PO QAM 04/20/23 04/26/24 History fumarate-folic acid 18 mg-400 mcg tablet (Centrum Women) omeprazole 40 mg capsule,delayed 40 mg PO DAILY gerd 04/20/23 04/26/24 History release losartan 25 mg tablet 25 mg PO BID 07/31/23 04/26/24 History nystatin 100,000 unit/gram topical 1 applic topical UD PRN Skin 07/31/23 04/26/24 History cream Irritation sodium chloride 1,000 mg soluble 1,000 mg PO BID 30 days #60 tabs 03/29/24 04/26/24 Rx tablet clotrimazole 2 % vaginal cream 1 appful topical UD PRN Vaginal 04/23/24 04/26/24 History Dryness carvedilol 3.125 mg tablet 3.125 mg PO BID 04/26/24 04/26/24 History fluoxetine 20 mg capsule See Rx Instructions .Route .COMPLEX 04/26/24 04/26/24 History fluoxetine 40 mg capsule See Rx Instructions .Route .COMPLEX 04/26/24 04/26/24 History oxycodone 5 mg tablet 5 mg PO Q6H PRN Pain 04/26/24 04/26/24 History trazodone 150 mg tablet 225 mg PO HS PRN Insomnia 04/26/24 04/26/24 History Patient History Medical History Lumbar stenosis 03/26/24 MRI showed significant stenosis lumbar spine; pt was originally to have lumbar decompression/fusion but put on hold pending evaluation for pancytopenia History of recent hospitalization [facility] 03/26/24-03/29/24: dx: hyponatremia, weakness, neutropenia, LBP. pt started on fluid restriction and sodium tabs. heme recommended bone marrow bx for neutropenia. ortho/spine consulted for lumbar spinal stenosis but operative mgmt deferred 2/ comorbidities and pancytopenia. 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 These have been stopped... 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 These have been stopped" Spinal stenosis GERD (gastroesophageal reflux disease) controlled, stable per pt Difficult airway for intubation limited cervical spine extension; s/p cervical spinal fusion Lumbar facet joint syndrome Lumbar spondylosis Hx of falling last fall over 1 year ago per patient Hx of gastritis patient denies recent flare Hx of encephalopathy no issues since stopping ETOH use 2021 COPD (chronic obstructive pulmonary disease) former smoker History of alcoholism (2021) quit 2021 (drank 6 beers/day) Hx of tinnitus Hx of migraines Pulmonary hypertension Hx of per 09/2019 ECHO: Moderate pulmonary HTN: Tiffanie PASP 51mmhg, assuming RAP of 3mmhg; per 03/2024 ECHO: RVSP 31mmHg Seasonal allergies Non-ischemic cardiomyopathy alcoholic CM; EF 35-40% in 2018, 60-65% in 2019 Hx of chronic pancreatitis History of anemia Chronic pain disorder back Positive ROSANGELA (antinuclear antibody) Stress incontinence Chronic cough Follows with [facility] pulm - pt. reports due to pollen and states has nearly resolved in recent months HTN (hypertension) controlled, stable per pt Cirrhosis Hep C induced; pt recently dx with recurrence of Hep C and awaiting tx with hepatology History of subdural hematoma (2010) 2010 Osteoarthritis History of seizure (2010) Following subdural hematoma 2010 from fall. Pt follows with [facility] Neuro; per 01/01/24 Neuro note, pt had 'episode of speech and movement arrest in the context of a histyr of posttraumatic seizures' 04/2023. Had normal EEG. Pt advised by neuro to start keppra but pt refuses. Surgical History Hx of blepharoplasty (01/2024) History of craniotomy (2010) Due to subdural hematoma from fall Hx of hysterectomy Hx of cholecystectomy History of carpal tunnel release right Hx of arthroscopy of shoulder right Hx of arthroscopy of left knee S/P cervical spinal fusion C4-C7 per imaging review History of onel hole surgery (2010) lead to craniotomy History of esophagogastroduodenoscopy (EGD) History of colonoscopy Family History Mother Hypertension Other No family history of adverse response to anesthesia Social History Smoking Status: Former smoker Tobacco Type: Cigarettes Age Started Using Tobacco: 18; Age Quit Using Tobacco: 30; packs per day: 1; Cigarettes Per Day: 1 Pack a day.; Second Hand Exposure: No; Do You Dip or Chew Tobacco: No; Tobacco Cessation Education Requested by Patient: No Hx Alcohol Use: Yes Alcohol type: beer Alcohol Intake Frequency Comment: 5 beers/day Hx Substance Use: No Preferred Language: [place] Communication Ability: Effective Collections Specialist Required: No Beliefs That Will Affect Care: None marital status: Single Current Living Situation: Spouse Current Living Situation Comment: Lives at home with . current occupational status: unemployed How many Children do You have: 0 Other Information That Helps Us Care for You: No Feels Safe at Home: Yes Safety Concerns: Feels Safe At This Time Assistive Devices: Cane, Stair Lift and Walker Review of Systems Review of Systems: All systems reviewed & are unremarkable except as noted in Subjective Constitutional: as per Subjective / HPI Eyes: as per Subjective / HPI Ear, Nose, Mouth, Throat: as per Subjective / HPI Respiratory: as per Subjective / HPI Cardiovascular: as per Subjective / HPI Gastrointestinal: as per Subjective / HPI Musculoskeletal: as per Subjective / HPI Integumentary: as per Subjective / HPI Neurologic: as per Subjective / HPI Psychiatric: as per Subjective / HPI Endocrine: as per Subjective / HPI Hematologic / Lymphatic: as per Subjective / HPI Allergy / Immunological: as per Subjective / HPI Exam (Neuro) Physical Exam: HEENT: normocephalic Neuro: Mental: AOx4, fluent speech, normal comprehension, no apraxia, no neglect CN: PERRL, Full EOM, symmetric face, midline T/U/P, 5/5 SCM/traps. Motor: No abnormal movements, normal tone and bulk, 5-/5 t/o bilaterally (some effort dependent) Sens: intact to touch b/l grossly Coord: intact grossly. DTR: 2+ sym b/l Impression: 64 yo female with complex medical issues with small acute left puncate ischemic stroke at putamen area. No neurological deficits. her chronic weakness is not related. pt with ongoing hem/onc issues and has low platelet. Her generalized weakness likely related to anemia, deconditioning, MDS related symptoms. Recommendations: 1. Standard stroke work up as planned 2. antiplatelet therapy: on hold as her platelet is below 100,000 (generally do not want to use antiplatelet if below this). 3. recent echo negative. 4. Permissive Hypertension for next 24 h rs. Keep SBP goal range less than 220. Avoid hypotension. Do not stop beta-pascual if on it. 6. Long-term SBP goal less than 130. 7. Avoid hypovolemia and hypotension. 8. Initiate DVT prevention therapy. 9. Avoid hypoglycemia, serum glucose goa l during hospitalization: 140-180. 10. Long-term HgA1c goal less than 7. 11. Start statin if not on it and no abs olute contraindication, long-term LDL goal less than 70. 14. Telemetry monitoring. Consider joint terminal attack controller cardiac monitoring, otherwise, not much to offer. continue medical work up and care for her metabolic and hem/oncology disorders. please call again if new question. Chart reviewed I have spent more than 50% educating patient about potential diagnosis and neurological evaluation and coordinating care with patient's treatment team. Total time spent (including chart review and coordination of care): 60 min (this includes chart review). Results & Data Vital Signs (Past 12 Hours) Vital Signs Temp Pulse Resp BP Pulse Ox O2 Del Method 04/28/24 07:19 36.5 C 70 18 125/79 98 Room Air PG Care Time/CCT Total # of Minutes Spent Total Time Spent with Patient: Total time spent is greater than 50% in coordination of care (as documented) at patient's floor/unit and/or counseling patient: Coding Level of Care Code 92248 IN/OBS CONSULT LVL 4,60M Diagnoses Acute ischemic stroke I63.9
[2024-04-28] MEDS: ASPIRIN 81 MG ECTAB PO SCH (10:24)
[2024-04-28 11:24] LABS: Estimated Average Glucose 88 mg/dl; Hemoglobin A1C 4.7 % (4.5-5.6)
[2024-04-28] MEDS: RIZATRIPTAN BENZOATE MLT 10 MG TAB PO PRN (11:53)
[2024-04-28] MEDS: ATORVASTATIN 40 MG TAB PO SCH (11:53)
[2024-04-28 11:58] LABS: Adenovirus F 40/41 PCR Not Detected (NotDetected); Astrovirus PCR Not Detected (NotDetected); Campylobacter PCR Not Detected (NotDetected); Cryptosporidium PCR Not Detected (NotDetected); Cyclospora cayetanensis PCR Not Detected (NotDetected); Entamoeba histolytica PCR Not Detected (NotDetected); Enteroaggregative E.coli(EAEC) Not Detected (NotDetected); Enteropathogenic E.coli (EPEC) Not Detected (NotDetected); Enterotoxigenic E.coli (ETEC) Not Detected (NotDetected); Giardia lamblia PCR Not Detected (NotDetected); Plesiomonas shigelloides PCR Not Detected (NotDetected); Rotavirus A PCR Not Detected (NotDetected); Salmonella PCR Not Detected (NotDetected); Sapovirus PCR Not Detected (NotDetected); Shiga-like Toxin E.coli (STEC) Not Detected (NotDetected); Shigella/Enteroinvasive E.coli Not Detected (NotDetected); Vibrio cholerae PCR Not Detected (NotDetected); Vibrio species PCR Not Detected (NotDetected); Yersinia enterocolitica PCR Not Detected (NotDetected)
[2024-04-28 12:05] LABS: Norovirus GI/GII PCR DETECTED (NotDetected)
--- NOTE | 2024-04-28 17:44 | Hospitalist Progress Note ---
Date of Service April 28, 2024 Assessment & Plan (1) Weakness: Plan: Chronic since July 2023, acute Metabolic encephalopathy on admission - CT head and CXR negative on admission - Follows with rheumatology, hepatology, heme/onc, and neurology outpatient due to ongoing weakness and fatigue - Bone marrow biopsy to be taken by heme/onc outpt due to ongoing leukopenia/thrombocytopenia. Postponed given hospitalization, rescheduled once discharged - B12 04/21/24 WNL. Ammonia WNL. TSH mildly elevated 4.9, free T4 WNL on admission - No recent thiamine level, pending. Thiamine 100 mg QAM ordered as could be contributing to ongoing symptoms - Lyme screen negative this admission. Tick borne panel in 04/2023 negative. (2) Acute ischemic stroke: Plan: Brain MRI ordered given ongoing weakness, frequent headaches/falls, and poor memory > Revealed a tiny acute lacunar infarct - Echo 03/25/24: EF 60-65%, no regional wall abnormalities. - CTA Head and Neck revealed no acute intracranial arterial occlusion and no evidence of hemodynamically significant carotid stenosis - Neurology consulted - no neurological deficits, her chronic weakness is unrelated, continue standard stroke workup - Lipid panel WNL, hgb A1c 4.7% - Started aspirin 81 mg daily. No DAPT given low platelets - Started atorvastatin 40 mg daily - PT/OT evals ordered (3) Acute UTI: Plan: UA on admission with WBC, hyaline casts, and bacteria - Leukocytopenia, chronic - afebrile and asymptomatic - Urine culture revealed diptheroids - likely a contaminant, Ceftriaxone discontinued 04/28/24 (4) Diarrhea: Plan: Ongoing diarrhea since July 2023 - possibly contributing to ongoing weakness and history of hyponatremia - Ongoing diarrhea, most recent stool culture 2020, stool culture ordered - Stool study positive for Norovirus 04/28/24. Continue supportive measures - could consider metamucil and/or pancreaze for chronic loose stools once acute norovirus infection is resolved Plan Started aspirin, atorvastatin Ordered hgb A1c, PT/OT evals Discussed with radiology staff about postponing bone marrow biopsy VTE ppx: SCDs Diet: regular with 1500 mL fluid restriction Code status: Full Code Chronic stable diagnoses: Chronic hyponatremia - continue sodium chloride, Na+ stable on admission, on 1500 mL fluid restricted diet out pt Depression - continue home buspirone and fluoxetine, diazepam and trazodone prn Gerd - continue omeprazole Admission and Anticipated Discharge Date Admission Date: April 26, 2024 Subjective Patient seen and evaluated at bedside. She reports that she had a migraine with associated nausea earlier, which has improved after medication. She notes that this migraine felt the same as her previous migraines. No focal neurological signs or symptoms. We discussed the results of her brain MRI indicating a small stroke, her treatment plan moving forward, and postponing her bone marrow biopsy until after she has been discharged from the hospital. Additionally, she was able to provide a stool sample today which revealed positive norovirus infection. We discussed that this is treated conservatively. All questions/concerns were answered. No additional complaints or concerns at this time. Physical Exam Physical Exam: General: No acute distress, nondiaphoretic, well-developed, well-nourished. Skin: The skin was without rashes, erythema, edema, or bruising. Cardiac: Regular rate and rhythm without murmurs gallops or rubs. Pulm: Clear to auscultation bilaterally without wheezes, rales or rhonchi. No respiratory distress. 96% on room air. Abdominal: Soft, nontender, nondistended. Bowel sounds present. Neuro: A&O x3. No focal neurological deficits. Psych: Flat affect. Results & Data Results & Data Vital Signs (Past 12 Hours) Vital Signs Temp Pulse Resp BP BP Pulse Ox O2 Del Method 04/28/24 17:24 36.9 C 72 16 126/63 96 Room Air 04/28/24 07:19 36.5 C 70 18 125/79 98 Room Air Laboratory Results Reviewed CBC Reviewed BMP Reviewed urine culture Reviewed lipid panel Reviewed stool studies Diagnostic Findings Head CTA 04/27/24 16:53 Exam(s): CTA HEAD With Contrast IV Amt: 116 ml opti 320 EXAM: CT Angiography Head With Intravenous Contrast CLINICAL HISTORY: Reason for exam: acute lacunar infarct. TECHNIQUE: Axial computed tomographic angiography images of the head with intravenous contrast. Automated exposure control was utilized for the study. A dose lowering technique was utilized adhering to the principles of ALARA. MIP reconstructed images were created and reviewed. CONTRAST: Patient received 116 ml opti 320 of IV contrast COMPARISON: No relevant prior studies available. FINDINGS: Right internal carotid artery: No acute findings. Intracranial segment is patent with no significant stenosis. No aneurysm. Right anterior cerebral artery: Unremarkable. No occlusion or significant stenosis. No aneurysm. Right middle cerebral artery: Unremarkable. No occlusion or significant stenosis. No aneurysm. Right posterior cerebral artery: Right P1 posterior cerebral artery is hypoplastic.. No occlusion or significant stenosis. No aneurysm. Right vertebral artery: Right vertebral artery is dominant. Left internal carotid artery: No acute findings. Intracranial segment is patent with no significant stenosis. No aneurysm. Left anterior cerebral artery: Unremarkable. No occlusion or significant stenosis. No aneurysm. Left middle cerebral artery: Unremarkable. No occlusion or significant stenosis. No aneurysm. Left posterior cerebral artery: Left P1 posterior cerebral artery is hypoplastic. Left vertebral artery: The left vertebral artery is hypoplastic. The P2 posterior cerebral arteries are supplied by posterior communicating arteries. Basilar artery: The basilar artery supplied by the right vertebral artery. No occlusion or significant stenosis. No aneurysm. IMPRESSION: 1. No acute intracranial arterial occlusion 2. Hypoplastic bilateral P1 posterior cerebral arteries. Electronically signed by: Christopher Garibay MD 04/27/24 20:10 PM Neck CTA 04/27/24 16:53 Exam(s): CTA NECK With Contrast IV Amt: 116 ml opti 320 EXAM: CT Angiography Neck With Intravenous Contrast CLINICAL HISTORY: Reason for exam: acute lacunar infarct. TECHNIQUE: Routine carotid CT angiography protocol was performed with intravenous contrast. NASCET criteria using the distal ICAs for comparison were used for evaluation of stenoses. Automated exposure control was utilized for the study. A dose lowering technique was utilized adhering to the principles of ALARA. MIP reconstructed images were created and reviewed. CONTRAST: Patient received 116 ml opti 320 of IV contrast COMPARISON: None. FINDINGS: VASCULATURE: Right common carotid artery: Mild atherosclerotic calcification seen at the right common carotid artery bifurcation and right proximal cervical internal carotid artery. No hemodynamically significant carotid stenosis. Right internal carotid artery: There is approximately 40% stenosis seen in the proximal right internal carotid artery. Right external carotid artery: Unremarkable. No occlusion. Right vertebral artery: Right vertebral arteries dominant. No occlusion or significant stenosis. No dissection. Left common carotid artery: Mild atherosclerotic calcifications are seen at the bifurcation of the left common carotid artery. Left internal carotid artery: Unremarkable. Extracranial segment is patent with no occlusion or significant stenosis. No dissection. Left external carotid artery: Unremarkable. No occlusion. Left vertebral artery: Unremarkable. No occlusion or significant stenosis. No dissection. NECK: Bones/joints: Unremarkable. No acute fracture. Soft tissues: Unremarkable. Lung apices: Clear. CAROTID STENOSIS REFERENCE USING NASCET CRITERIA: % ICA stenosis = (1 - narrowest ICA diameter/diameter of distal cervical ICA) x 100. Mild - <50% stenosis. Moderate - 50-69% stenosis. Severe - 70-94% stenosis. Near occlusion - 95-99% stenosis. Occluded - 100% stenosis. IMPRESSION: No evidence of hemodynamically significant carotid stenosis Electronically signed by: Christopher Garibay MD 04/27/24 20:03 PM PG Care Time/CCT Total # of Minutes Spent Total Time Spent with Patient: Total time spent is greater than 50% in coordination of care (as documented) at patient's floor/unit and/or counseling patient: Coding Level of Care Code 79390 SUB INP/OBS CARE 3/50MIN Diagnoses Weakness R53.1 Acute ischemic stroke I63.9 Acute UTI N39.0 Diarrhea, unspecified type R19.7 Diarrhea type: unspecified type (4) Diarrhea Diarrhea type: unspecified type Qualified Code(s): R19.7 - Diarrhea, unspecified
--- NOTE | 2024-04-28 18:09 | Billing Data ---
Date of Service April 26, 2024 Coding Level of Care Code 06252 INT INP/OBS CARE
[2024-04-29 10:45] LABS: Hematocrit (blood only) 35.1 % (37.0-47.0); Hemoglobin 12.2 g/dl (12.0-16.0); Mean Corpuscular Hemoglobin 34.2 pg (25.0-34.0); Mean Corpuscular Hgb Conc 34.8 g/dL (32.0-36.0); Mean Corpuscular Volume 98.3 fL (80.0-100.0); Mean Platelet Volume 8.7 fL (9.4-12.4); Platelet Count 92 K/uL (130-400); RDW Coefficient of Variation 12.8 % (11.5-14.5); RDW Standard Deviation 46.5 fL (36.4-46.3); Red Blood Count 3.57 M/uL (4.20-5.40); White Blood Count 2.61 K/ul (4.8-10.8)
[2024-04-29 11:07] LABS: Calcium 9.1 mg/dl (8.6-10.3); Potassium 4.1 mmol/L (3.5-5.1)
[2024-04-29 11:13] LABS: Creatinine Clr Calc Pharmacy 74.7 ml/min; Est GFR (African American) 100.2 ml/min; Est GFR (Non-African American) 86.4 ml/min
[2024-04-29] MEDS: DICLOFENAC SOD 1% GEL 100 GM TUBE EXT SCH (13:51)
--- NOTE | 2024-04-29 17:39 | Hospitalist Progress Note ---
Date of Service April 29, 2024 Assessment & Plan (1) Weakness: Plan: Chronic since July 2023, acute Metabolic encephalopathy on admission - CT head and CXR negative on admission - Follows with rheumatology, hepatology, heme/onc, and neurology outpatient due to ongoing weakness and fatigue - Bone marrow biopsy to be taken by heme/onc outpt due to ongoing leukopenia/thrombocytopenia. Postponed given hospitalization, rescheduled once discharged - B12 04/21/24 WNL. Ammonia WNL. TSH mildly elevated 4.9, free T4 WNL on admission - No recent thiamine level, pending. Thiamine 100 mg QAM ordered as could be contributing to ongoing symptoms - Lyme screen negative this admission. Tick borne panel in 04/2023 negative. - Voltaren gel as needed for arthritic pain. (2) Acute ischemic stroke: Plan: Brain MRI ordered given ongoing weakness, frequent headaches/falls, and poor memory > Revealed a tiny acute lacunar infarct - Echo 03/25/24: EF 60-65%, no regional wall abnormalities. - CTA Head and Neck revealed no acute intracranial arterial occlusion and no evidence of hemodynamically significant carotid stenosis - Neurology consulted - no neurological deficits, her chronic weakness is unrelated, continue standard stroke workup - Lipid panel WNL, hgb A1c 4.7% - Started aspirin 81 mg daily. No DAPT given low platelets - Started atorvastatin 40 mg daily - PT/OT recommending home health PT services. Patient is agreeable. (3) Acute UTI: Plan: UA on admission with WBC, hyaline casts, and bacteria - Leukocytopenia, chronic - afebrile and asymptomatic - Urine culture revealed diptheroids - likely a contaminant, Ceftriaxone discontinued 04/28/24 (4) Diarrhea: Plan: Ongoing diarrhea since July 2023 - possibly contributing to ongoing weakness and history of hyponatremia - Ongoing diarrhea, most recent stool culture 2020, stool culture ordered - Stool study positive for Norovirus 04/28/24. Continue supportive measures - could consider metamucil and/or pancreaze for chronic loose stools once acute norovirus infection is resolved Plan Updated patient's friend at bedside Ordered voltaren gel PT recommending PT, patient is agreeable VTE ppx: SCDs Diet: regular with 1500 mL fluid restriction Code status: Full Code Chronic stable diagnoses: Chronic hyponatremia - continue sodium chloride, Na+ stable on admission, on 1500 mL fluid restricted diet out pt Depression - continue home buspirone and fluoxetine, diazepam and trazodone prn Gerd - continue omeprazole Admission and Anticipated Discharge Date Admission Date: April 26, 2024 Subjective Patient seen and evaluated at bedside with friend present. She reports that her main complaint today is achiness in her joints secondary to arthritis. She reports that Voltaren gel has alleviated this discomfort in the past. Will order as needed Voltaren gel. She reports that her bowel movement frequency has decreased, noting no bowel movements today at the time of my evaluation. No additional complaints or concerns at this time. Physical Exam Physical Exam: General: No acute distress, nondiaphoretic, well-developed, well-nourished. Skin: The skin was without rashes, erythema, edema, or bruising. Cardiac: Regular rate and rhythm without murmurs gallops or rubs. Pulm: Clear to auscultation bilaterally without wheezes, rales or rhonchi. No respiratory distress. 95% on room air. Abdominal: Soft, nontender, nondistended. Bowel sounds present. Neuro: A&O x3. No focal neurological deficits. Psych: Flat affect. Results & Data Results & Data Vital Signs (Past 12 Hours) Vital Signs Temp Pulse Resp BP Pulse Ox O2 Del Method 04/29/24 16:51 36.6 C 77 14 131/85 95 Room Air Laboratory Results Reviewed CBC PG Care Time/CCT Total # of Minutes Spent Total Time Spent with Patient: Total time spent is greater than 50% in coordination of care (as documented) at patient's floor/unit and/or counseling patient: Coding Level of Care Code 34670 SUB INP/OBS CARE 2/35MIN Diagnoses Weakness R53.1 Acute ischemic stroke I63.9 Acute UTI N39.0 Diarrhea, unspecified type R19.7 Diarrhea type: unspecified type (4) Diarrhea Diarrhea type: unspecified type Qualified Code(s): R19.7 - Diarrhea, unspecified
[2024-04-29 20:42] VITALS: O2SAT 97
[2024-04-30 07:02] LABS: Hematocrit (blood only) 35.6 % (37.0-47.0); Hemoglobin 12.4 g/dl (12.0-16.0); Mean Corpuscular Hemoglobin 34.4 pg (25.0-34.0); Mean Corpuscular Hgb Conc 34.8 g/dL (32.0-36.0); Mean Corpuscular Volume 98.9 fL (80.0-100.0); Mean Platelet Volume 8.5 fL (9.4-12.4); Platelet Count 96 K/uL (130-400); RDW Coefficient of Variation 12.7 % (11.5-14.5); RDW Standard Deviation 46.2 fL (36.4-46.3); White Blood Count 2.54 K/ul (4.8-10.8)
[2024-04-30 07:25] LABS: BUN Creatinine Ratio 16.9 (10-20); Calcium 8.9 mg/dl (8.6-10.3); Creatinine Clr Calc Pharmacy 83.9 ml/min; Est GFR (Non-African American) 93.2 ml/min
[2024-04-30 07:42] VITALS: BP 116/71; PULSE 73; RESP 18; TEMP 98.2
[2024-04-30] MEDS: DICLOFENAC SOD 1% GEL 100 GM TUBE EXT PRN (09:05)
--- NOTE | 2024-04-30 12:17 | Discharge Summary ---
Discharge Summary Date of Service April 30, 2024 Principal Dx & Hospital Course #1 = Principal Diagnosis (1) Weakness: Chronic since July 2023, acute Metabolic encephalopathy on admission - CT head and CXR negative on admission - Follows with rheumatology, hepatology, heme/onc, and neurology outpatient due to ongoing weakness and fatigue - Bone marrow biopsy to be taken by heme/onc outpt due to ongoing leukopenia /thrombocytopenia. Postponed given hospitalization, rescheduled once discharged - B12 04/21/24 WNL. Ammonia WNL. TSH mildly elevated 4.9, free T4 WNL on admission - No recent thiamine level, pending. Continue Thiamine 100 mg QAM as could be contributing to ongoing symptoms - Lyme screen negative this admission. Tick borne panel in 04/2023 negative. - Voltaren gel as needed for arthritic pain. (2) Acute ischemic stroke: Brain MRI ordered given ongoing weakness, frequent headaches/falls, and poor memory > Revealed a tiny acute lacunar infarct - Echo 03/25/24: EF 60-65%, no regional wall abnormalities. - CTA Head and Neck revealed no acute intracranial arterial occlusion and no evidence of hemodynamically significant carotid stenosis - Neurology consulted - no neurological deficits, her chronic weakness is unrelated, continue standard stroke workup - Lipid panel WNL, hgb A1c 4.7% - Continue aspirin 81 mg daily. No DAPT given low platelets - Continue atorvastatin 40 mg daily - PT/OT recommended home health PT services. Patient is agreeable. Referral sent out via case management. (3) Acute UTI: UA on admission with WBC, hyaline casts, and bacteria - Leukocytopenia, chronic - afebrile and asymptomatic - Urine culture revealed diptheroids - likely a contaminant, Ceftriaxone discontinued 04/28/24 (4) Diarrhea: Ongoing diarrhea since July 2023 - possibly contributing to ongoing weakness and history of hyponatremia - Ongoing diarrhea, most recent stool culture 2020, stool culture ordered - Stool study positive for Norovirus 04/28/24. Continue supportive measures - could consider metamucil and/or pancreaze for chronic loose stools once acute norovirus infection is resolved Plan Code status: Full Code Chronic stable diagnoses: Chronic hyponatremia - continue sodium chloride, Na+ stable on admission, on 1500 mL fluid restricted diet out pt Depression - continue home buspirone and fluoxetine, diazepam and trazodone prn Gerd - continue omeprazole Notes For Next Care Provider Patient was admitted for ongoing generalized weakness and fatigue. Brain MRI revealed tiny acute lacunar infarct. Echo from March 2024 showed EF 60-65%, no regional wall abnormalities. CTA head and neck this admission revealed no acute intracranial arterial occlusion and no evidence of hemodynamically significant carotid stenosis. HgbA1c 4.7%. Neurology was consulted, no neurological deficits and felt her chronic weakness is unrelated to the stroke. Started aspirin 81 mg daily, no DAPT given low platelets. Start atorvastatin 40 mg daily. Thiamine level sent out but still pending. Continue thiamine supplementation and follow-up on thiamine level. Additionally, stool study positive for norovirus. However, patient reported ongoing diarrhea since July 2023. Consider Metamucil and/or Pancreaze for chronic loose stools once acute norovirus infection is resolved. She was discharged home with home health PT services. Follow-up with PCP. Contact heme/onc to reschedule bone marrow biopsy. Medication Changes From Visit Atorvastatin 40 mg daily Aspirin 81 mg daily Thiamine 100 mg daily Admission HPI Per Admitting Provider Patient is a 64-year-old female with a past medical history of generalized weakness, hyponatremia, spinal stenosis, alcoholism, depression, GERD, hepatitis C, leukopenia/thrombocytopenia, alcohol induced cardiomyopathy, pulmonary hypertension, chronic pancreatitis, liver cirrhosis, migraines, osteoporosis, and tricuspid regurgitation. patient presents today due to ongoing weakness and fatigue since July. She stated that she follows with 8-9 different doctors and nobody can figure out what is wrong. She frequently loses her balance, has poor memory, loses her train of thought, is shaky, and falls a lot. She states that she has ' almost falls' daily. Today she had 2 close falls and fell once. She denies hitting her head today. She stated that today she felt weak and fatigued than normal. She also has an increase in shakiness. She has headaches often, but not migraines. She also stated that she has had chronic diarrhea since July. She stated that about 60% of her bowel movements are diarrhea. She has had diarrhea all day today. She stated that the consistency varies between soft and watery for the past 9 months. She stated that when she stands up she just feels weak but not dizzy. The patient shared that she often just lays around because she is too scared of falling and feels weak. She denies headache, dizziness, lightheadedness, rhinorrhea, sore throat, cough, shortness of breath, chest pain, abdominal pain, nausea, vomiting, numbness, tingling, dysuria, increased urinary frequency, and hematuria today. She stated that she has had 3 big falls in the past when she has hit her head. She had a hematoma about 23 years ago. She lives at home with her on 1 floor. They do live on the second floor of a building and have a stair chair. Patient previously smoked tobacco but quit in the . Patient has a history of alcohol use, she drank a sixpack a day and quit about 3 years ago. Patient denies illicit drug use. She wishes to be full code at this time. Patient stated that she is to schedule surgery for her lumbar stenosis but is holding off due to ongoing cardiomyopathy, tricuspid regurg., and pulmonary HTN. Patient stated that she is scheduled for a bone marrow biopsy tomorrow due to ongoing leukopenia and thrombocytopenia. Admission Exam Per Admitting Provider The patient is awake, alert and oriented 3, well developed and well nourished, normocephalic and atraumatic, in no acute distress. Non-toxic appearing. HEENT- EOMI, mucous membranes moist. Hearing grossly intact. Heart-normal S1 and S2. No murmurs, rubs or gallops. Lungs-clear bilaterally, no respiratory distress, no accessory muscle use. Abdomen-normal bowel sounds and soft. No ascites noted. Non-tender. Extremities- no clubbing, cyanosis. Mild edema of right elbow due to saline infusion accumulation. Rheumatologic-normal range of motion. Psychiatric-flat affect. Discharge Exam General: No acute distress, nondiaphoretic, well-developed, well-nourished. Skin: The skin was without rashes, erythema, edema, or bruising. Cardiac: Regular rate and rhythm without murmurs gallops or rubs. Pulm: Clear to auscultation bilaterally without wheezes, rales or rhonchi. No respiratory distress. 95% on room air. Abdominal: Soft, nontender, nondistended. Bowel sounds present. Neuro: A&O x3. No focal neurological deficits. Psych: Flat affect. Discharge Plan Discharge Items Patient Disposition: Home - Home Health Services Reason For Visit: WEAKNESS Discharge Diagnosis: Acute lacunar infarct, norovirus, generalized weakness Condition on Discharge: Fair Activity: Resume your previous activity Non-emergency contact: Primary Care Provider Call non-emergency contact if: you have any medication questions and your symptoms worsen Follow-up/Referrals: Swetha Newberry DO [Primary Care Provider] - (Follow-up in 1 week) Diet: Regular Fluids: 1500ml (6 cups) Addtl Attending Provider Instructions: Mrs. Rivas, Clemente were admitted to the hospital due to generalized weakness. You had a brain MRI which revealed a tiny acute lacunar infarct (small ischemic stroke). During an ischemic stroke, blood stops flowing to part of your brain due to a narrowing or blockage in a blood vessel that supplies the brain. You have no neurological deficits from this, and were evaluated by neurology who feels that your chronic weakness is unrelated. Given the stroke, you were started on a couple new medications. Additionally, you were found to have norovirus. Norovirus is a very contagious virus that can infect the stomach and intestines. It can cause diarrhea and vomiting. Norovirus is the most common cause of illness from contaminated food in the [place]. The virus spreads easily through contaminated foods and services. Foods most likely to be contaminated include shellfish, ready to eat salads and sandwiches, and produce (like celery, melons, leafy vegetables). Norovirus is j ust treated with conservative measures including rest and fluids. Upon discharge from the hospital: * Continue atorvastatin 40 mg daily. * Continue aspirin 81 mg daily. You can purchase this at a pharmacy or store [id number] (OTC), no prescription is required. * Continue vitamin B1 (thiamine) supplementation. * Follow-up with your PCP in 1 week. * Continue with home health PT services. * Contact hematology/oncology to reschedule your bone marrow biopsy. * Continue your other home medications as prescribed. Please return to the hospital if you experience any of the following: Send any problems with speech, confusion, vision, walking, coordination, facial droop, weakness or numbness on one side your body, severe headache, fainting spells, dizziness, seizure, chest pain, shortness of breath, or any of the symptoms noted below. Know the symptoms of a stroke: * Weakness. You may feel a sudden weakness, tingling, or a loss of feeling on one side of your face or body including your arm or leg. * Vision problems. You may have sudden double vision or trouble seeing in one or both eyes. * Speech problems. You may have sudden trouble talking, slurred speech, or problems understanding others. * Movement problems. You may have sudden trouble walking, dizziness, a feeling of spinning, a loss of balance, a feeling of falling, or blackouts. Remember: If you have any of these symptoms, call 911 and your doctor as soon as possible. B.E. F.A.S.T. is an easy way to remember the signs of a stroke. When you see the signs, you will know what you need to call 911 fast. B.E. F.A.S.T. stands for: * B is for balance. Sudden loss of balance or coordination. * E is for eyes. Vision changes in one or both eyes. * F is for face drooping. One side of the face is drooping or numb. When the person smiles, the smile is uneven. * A is for arm weakness. One arm is weak or numb. When the person lifts both arms and the same time, one arm may drift downward. * S is for speech difficulty. You may notice slurred speech or trouble speaking. The person can't repeat a simple sentence correctly when asked. * T is for time to call 911. If someone shows any of these symptoms, even if they go away, call 911 right away. Make note of the time the symptoms first appeared. It was a pleasure taking care of you while you were in the hospital, Natasha Goodman PA-C Pending Studies at Discharge: Yes Studies:: Thiamine level Stand-Alone Forms: My [facility] [email or web address], Smoking Cessation Medications and DC Order Prescriptions: New atorvastatin 40 mg Tablet 40 mg PO QAM Qty: 30 0RF thiamine HCl (vitamin B1) 100 mg Tablet 100 mg PO QAM Qty: 30 0RF aspirin 81 mg Tablet,Delayed Release (Dr/Ec) 81 mg PO DAILY Qty: 30 0RF Continued calcium carbonate-vitamin D3 [Calcium 600 with Vitamin D3] 600 mg-12.5 mcg (500 unit) capsule 1 cap PO QAM Hold Instructions: SURGERY nystatin 100,000 unit/gram cream 1 applic topical UD PRN (Reason: Skin Irritation) losartan 25 mg tablet 25 mg PO BID rizatriptan 10 mg tablet,disintegrating 10 mg PO DIRECTED MDD 3 DOSES/24 HOURS PRN (Reason: Migraine Headache) Rx Instructions: TAKE 10 MG AT ONSET OF YEPEZ, THEN REPEAT IN 2 HOURS IF NEEDED. MAX 3 DOSES/24 HOURS. omeprazole 40 mg capsule,delayed release(DR/EC) 40 mg PO DAILY alendronate 35 mg tablet 35 mg PO WK Rx Instructions: Pt usually takes on Friday mornings, but forgot to take it on 04/25/24 so she took it on the morning of 04/26/24 buspirone 30 mg tablet 30 mg PO BID diazepam 5 mg tablet 5 mg PO BID PRN (Reason: Anxiety) Centrum Women 18-400 mg-mcg Tablet 1 tab PO QAM Hold Instructions: SURGERY clotrimazole 2 % cream 1 appful topical UD PRN (Reason: Vaginal Dryness) sodium chloride 1,000 mg Tablet,Soluble 1,000 mg PO BID 30 Days Qty: 60 0RF fluoxetine 40 mg capsule See Rx Instructions .ROUTE .COMPLEX Rx Instructions: Take 40mg w/ 20mg every morning to equal 60mg carvedilol 3.125 mg tablet 3.125 mg PO BID trazodone 150 mg tablet 225 mg PO HS PRN (Reason: Insomnia) fluoxetine 20 mg capsule See Rx Instructions .ROUTE .COMPLEX Rx Instructions: Take 20mg w/ 40mg every morning to equal 60mg oxycodone 5 mg tablet 5 mg PO Q6H PRN (Reason: Pain) Discharge Orders: Discharge Order (Routine); Ordered 04/30/24 Ordered By: Natasha Jones/Other Patient Handouts: What Is Ischemic Stroke?, Understanding Norovirus, ED Stroke (Completed) Admission Data Admit Date/Time: 04/26/24 17:11 Attending Provider: Jose Sam Admit Provider: Jose Prieto Primary Care Provider: Swetha Newberry Other Providers: Jose Prieto; Richard Daly Hospital Stay Data Consultations 04/26/24 14:55 ED Decision to Admit Stat 04/27/24 16:53 Consult Neurology Routine Procedures Performed Operation Date: 04/29/24 11:30 <No data on this case meets the specified criteria> Diagnostic Imagining Performed Chest X-Ray 04/26/24 10:48 XR chest 1V portable CLINICAL HISTORY: weakness COMPARISON STUDY: Chest CT February 20, 2024. Chest radiograph March 25, 2024. FINDINGS: Postoperative findings within the spine are incidentally noted. There is no pneumothorax or pleural effusion. There is no consolidation or evidence for pulmonary edema. Linear left basilar density represents atelectasis. Cardiomediastinal silhouette is unremarkable. IMPRESSION: No acute cardiopulmonary findings. ACT 112: Negative or not required by law. Electronically signed by: Ion Azul M.D. 04/26/2024 12:[address] 04/26/24 10:48 CT head/brain wo con CLINICAL HISTORY: lethargy Technique: Contiguous axial CT images of the head were acquired from the base of the skull to the vertex without intravenous contrast administration. Images were viewed in brain, subdural and bone windows. Automated dose lowering techniques and/or adjustment according to patient size were utilized for this exam. Comparison: Comparison is made to CT head 03/25/2024 Findings: Areas of decreased attenuation are present in the periventricular and subcortical white matter bilaterally consistent with small vessel ischemic disease. Generalized cerebral atrophy with commensurate enlargement of the ventricles, sulci, and cisterns is also present. There is no acute intracranial hemorrhage or evidence of acute territorial infarction. No shift of the midline structures, mass effect, or extra-axial abnormalities are shown. Atherosclerotic calcifications are present in the intracranial segments of the internal carotid arteries. Imaged portions of the paranasal sinuses and mastoid air cells are clear. The orbits appear normal. Postsurgical changes in the right calvarium again seen. Impression: No acute intracranial hemorrhage, no evidence of acute territorial infarction or other acute intracranial disease process. ACT 112: Negative or not required by law. Electronically signed by: Jay Hernandez M.D. 04/26/2024 12:57 PM Brain MRI 04/27/24 10:15 MR brain wo con CLINICAL HISTORY: weak, frequent headaches/falls, poor memory TECHNIQUE: Multiplanar and multisequence MR images of the brain were obtained without intravenous contrast. Comparison: Comparison is made to MRI brain 04/21/[address] head 04/26/2024 FINDINGS: There is a punctate focus of restricted diffusion in the left putamen. Foci of T2 and FLAIR hyperintensity are noted in the paraventricular areas consistent with chronic small vessel ischemic disease. Ex vacuo ventriculomegaly and sulcal enlargement is noted compatible with diffuse volume loss. No mass is seen. There is no mass effect or midline shift. There is no evidence of acute intraparenchymal hemorrhage. No extra axial fluid collections are seen. The corpus callosum, pituitary gland, and cerebellar tonsils appear grossly unremarkable. Flow voids of the major intracranial arterial vessels are identified. The imaged portions of the paranasal sinuses, mastoid air cells, and orbits are unremarkable. IMPRESSION: Punctate focus of restricted diffusion in the left putamen is compatible with a tiny acute lacunar infarct ACT 112: Negative or not required by law. Electronically signed by: Jay Hernandez M.D. 04/27/2024 3:07 PM Head CTA 04/27/24 16:53 Exam(s): CTA HEAD With Contrast IV Amt: 116 ml opti 320 EXAM: CT Angiography Head With Intravenous Contrast CLINICAL HISTORY: Reason for exam: acute lacunar infarct. TECHNIQUE: Axial computed tomographic angiography images of the head with intravenous contrast. Automated exposure control was utilized for the study. A dose lowering technique was utilized adhering to the principles of ALARA. MIP reconstructed images were created and reviewed. CONTRAST: Patient received 116 ml opti 320 of IV contrast COMPARISON: No relevant prior studies available. FINDINGS: Right internal carotid artery: No acute findings. Intracranial segment is patent with no significant stenosis. No aneurysm. Right anterior cerebral artery: Unremarkable. No occlusion or significant stenosis. No aneurysm. Right middle cerebral artery: Unremarkable. No occlusion or significant stenosis. No aneurysm. Right posterior cerebral artery: Right P1 posterior cerebral artery is hypoplastic.. No occlusion or significant stenosis. No aneurysm. Right vertebral artery: Right vertebral artery is dominant. Left internal carotid artery: No acute findings. Intracranial segment is patent with no significant stenosis. No aneurysm. Left anterior cerebral artery: Unremarkable. No occlusion or significant stenosis. No aneurysm. Left middle cerebral artery: Unremarkable. No occlusion or significant stenosis. No aneurysm. Left posterior cerebral artery: Left P1 posterior cerebral artery is hypoplastic. Left vertebral artery: The left vertebral artery is hypoplastic. The P2 posterior cerebral arteries are supplied by posterior communicating arteries. Basilar artery: The basilar artery supplied by the right vertebral artery. No occlusion or significant stenosis. No aneurysm. IMPRESSION: 1. No acute intracranial arterial occlusion 2. Hypoplastic bilateral P1 posterior cerebral arteries. Electronically signed by: Christopher Garibay MD 04/27/24 20:10 PM Neck CTA 04/27/24 16:53 Exam(s): CTA NECK With Contrast IV Amt: 116 ml opti 320 EXAM: CT Angiography Neck With Intravenous Contrast CLINICAL HISTORY: Reason for exam: acute lacunar infarct. TECHNIQUE: Routine carotid CT angiography protocol was performed with intravenous contrast. NASCET criteria using the distal ICAs for comparison were used for evaluation of stenoses. Automated exposure control was utilized for the study. A dose lowering technique was utilized adhering to the principles of ALARA. MIP reconstructed images were created and reviewed. CONTRAST: Patient received 116 ml opti 320 of IV contrast COMPARISON: None. FINDINGS: VASCULATURE: Right common carotid artery: Mild atherosclerotic calcification seen at the right common carotid artery bifurcation and right proximal cervical internal carotid artery. No hemodynamically significant carotid stenosis. Right internal carotid artery: There is approximately 40% stenosis seen in the proximal right internal carotid artery. Right external carotid artery: Unremarkable. No occlusion. Right vertebral artery: Right vertebral arteries dominant. No occlusion or significant stenosis. No dissection. Left common carotid artery: Mild atherosclerotic calcifications are seen at the bifurcation of the left common carotid artery. Left internal carotid artery: Unremarkable. Extracranial segment is patent with no occlusion or significant stenosis. No dissection. Left external carotid artery: Unremarkable. No occlusion. Left vertebral artery: Unremarkable. No occlusion or significant stenosis. No dissection. NECK: Bones/joints: Unremarkable. No acute fracture. Soft tissues: Unremarkable. Lung apices: Clear. CAROTID STENOSIS REFERENCE USING NASCET CRITERIA: % ICA stenosis = (1 - narrowest ICA diameter/diameter of distal cervical ICA) x 100. Mild - <50% stenosis. Moderate - 50-69% stenosis. Severe - 70-94% stenosis. Near occlusion - 95-99% stenosis. Occluded - 100% stenosis. IMPRESSION: No evidence of hemodynamically significant carotid stenosis Electronically signed by: Christopher Garibay MD 04/27/24 20:03 PM Pending Results Patient Have Any Pending Studies at Discharge: No Discharge Instructions Given to Patient (Per Discharging Provider) Mrs. Rivas, You were admitted to the hospital due to generalized weakness. You had a brain MRI which revealed a tiny acute lacunar infarct (small ischemic stroke). During an ischemic stroke, blood stops flowing to part of your brain due to a narrowing or blockage in a blood vessel that supplies the brain. You have no neurological deficits from this, and were evaluated by neurology who feels that your chronic weakness is unrelated. Given the stroke, you were started on a couple new medications. Additionally, you were found to have norovirus. Norovirus is a very contagious virus that can infect the stomach and intestines. It can cause diarrhea and vomiting. Norovirus is the most common cause of illness from contaminated food in the [place]. The virus spreads easily through contaminated foods and services. Foods most likely to be contaminated include shellfish, ready to eat salads and sandwiches, and produce (like celery, melons, leafy vegetables). Norovirus is just treated with conservative measures including rest and fluids. Upon discharge from the hospital: * Continue atorvastatin 40 mg daily. * Continue aspirin 81 mg daily. You can purchase this at a pharmacy or store [id number] (OTC), no prescription is required. * Continue vitamin B1 (thiamine) supplementation. * Follow-up with your PCP in 1 week. * Continue with home health PT services. * Contact hematology/oncology to reschedule your bone marrow biopsy. * Continue your other home medications as prescribed. Please return to the hospital if you experience any of the following: Send any problems with speech, confusion, vision, walking, coordination, facial droop, weakness or numbness on one side your body, severe headache, fainting spells, dizziness, seizure, chest pain, shortness of breath, or any of the symptoms noted below. Know the symptoms of a stroke: * Weakness. You may feel a sudden weakness, tingling, or a loss of feeling on one side of your face or body including your arm or leg. * Vision problems. You may have sudden double vision or trouble seeing in one or both eyes. * Speech problems. You may have sudden trouble talking, slurred speech, or problems understanding others. * Movement problems. You may have sudden trouble walking, dizziness, a feeling of spinning, a loss of balance, a feeling of falling, or blackouts. Remember: If you have any of these symptoms, call 911 and your doctor as soon as possible. B.E. F.A.S.T. is an easy way to remember the signs of a stroke. When you see the signs, you will know what you need to call 911 fast. B.E. F.A.S.T. stands for: * B is for balance. Sudden loss of balance or coordination. * E is for eyes. Vision changes in one or both eyes. * F is for face drooping. One side of the face is drooping or numb. When the person smiles, the smile is uneven. * A is for arm weakness. One arm is weak or numb. When the person lifts both arms and the same time, one arm may drift downward. * S is for speech difficulty. You may notice slurred speech or trouble speaking. The person can't repeat a simple sentence correctly when asked. * T is for time to call 911. If someone shows any of these symptoms, even if they go away, call 911 right away. Make note of the time the symptoms first appeared. It was a pleasure taking care of you while you were in the hospital, Natasha Goodman PA-C Total Time Total Time Spent Total Time Spent (In Minutes): Greater than 30 minutes spent completing this discharge process including direct patient care, medication reconciliation, documentation, review of labs and images, and coordination of care. Coding Level of Care Code 86276 INP/OBS DISCH >30 MIN Diagnoses Weakness R53.1 Acute ischemic stroke I63.9 Acute UTI N39.0 Diarrhea, unspecified type R19.7 Diarrhea type: unspecified type
== END 2024-04-30 14:44 | disposition home health service (06) | DRG 64 ==
LOC: ED 10:38 → SUATTDRO 17:11 → 3W 17:11

== ENCOUNTER 2024-05-05 14:29 | Observation (INO) ==
--- NOTE | 2024-05-05 14:42 | ED Triage Note ---
Date of Service May 05, 2024 Provider in Triage Author: Shara Wakefield History of Present Illness This patient was briefly evaluated while in triage. An abbreviated physical exam was performed. This patient is a 64-year-old Female who presents to the ED for evaluation recently hosptialized for likely stroke-weakness, balance issues, memory loss headache started actuely around 1350 Physical Exam GENERAL: NAD in wheelchair CARDIOVASCULAR: RRR RESPIRATORY: CTA ABDOMEN: BS x 4. Nontender to palpation. NEURO: no facial droop, no extremity weakness, speech clear Initial orders for labs and / or imaging were placed and patient was placed in the waiting area until a bed is available. Please see further documentation for the full ED course.
--- NOTE | 2024-05-05 15:22 | Emergency Department Note ---
Impression & Plan Headache, Stroke-like symptoms ED Provider Note NAME: JUHI WHITFIELD AGE: 64 SEX: Female INFORMANT: Patient and spouse ED PROVIDER(S): Richard Parrish MD CHIEF COMPLAINT: Strokelike symptoms PLAN: Disposition: Admitted Outpatient prescription management: none Referral: None MEDICAL DECISION MAKING: Patient presented with acute strokelike symptoms. Stroke alert was initiated. The patient did have some weakness in the left leg on examination initially but that improved after CT imaging. There was some delay getting CT imaging as the patient was a very difficult IV stick. Patient was given IV Tylenol. CT imaging and CT angiography did not reveal any acute process. During that time I did consult with Lauren telestroke, Dr. Nicole. Given the patient's recent acute CVA she is not a TNK candidate. He recommended admission and MR imaging. Consultation made with the [facility]. Case discussed and diagnostics were reviewed. Patient was evaluated by the team and admitted for further management. Care/management discussed with: mobile marketing manager, telestroke Level of care consideration(s): After review of the information above and other included data, I feel the patient requires escalation of care to admission Triage Nursing notes: reviewed and agree them. Vital Signs: reviewed and remarkable for no significant abnormalities Additional History obtained from: none Chronic Medical/Social Conditions affecting care: COPD, CVA Prior/ Outside/ External records reviewed: Discharge summary from last week reviewed. Patient had acute small lacunar infarct noted on MR imaging. Differential Diagnosis: CVA, TIA, ICH,Infection, dehydration, metabolic abnormality, hypo/hyperglycemia, electrolyte disturbance, anemia, hypoxia, cardiac sources, intracerebral event, toxicologic, neurologic, as well as other pathologies. Diagnostics, independently interpreted by me: ECG: Twelve-lead ECG rhythm normal sinus rhythm at 60 bpm. Low-voltage QRS. Prolonged QT. No ST elevation. Cardiac Monitoring: Cardiac monitoring ordered by me: The patient was placed on continuous cardiac monitoring and observed. It revealed a normal sinus rhythm at 61 beats per minute without ectopy or evidence of dysrhythmia. Medical decision rules: none Imaging studies: Head CT: A noncontrast CT scan of the head was performed and was negative for tumor, fracture, intracranial hemorrhage, or other acute pathology. I refer you to the EMR for further details. Patient reports HPI: 64 year old Female arrives for evaluation of strokelike symptoms. This started about 1350 and is persisting. Patient states that she developed acute onset of difficulty with word finding, headache, and dizziness. The patient also notes the following associated symptoms, chronic back pain. Patient was just discharged 5 days ago for an acute lacunar infarct. Not on anticoagulation currently. The patient has taken no medication for relieving factors. Current pain is rated as 8/10. Pt denies LOC, fevers, chills, diaphoresis, visual changes, neck pain, chest pain, breathing difficulties, nausea, vomiting, abdominal pain, melena, hematochezia, urinary symptoms, numbness, weakness, lymphadenopathy, rash, or other complaints.. PAST MEDICAL HISTORY: See Below, stroke, chronic back pain, COPD PAST SURGICAL HISTORY: See Below, SOCIAL HISTORY: See Below, HOME MEDICATIONS: See Below ALLERGIES: See Below VITALS: See Below PHYSICAL EXAMINATION: GENERAL: Awake, alert, tired, atraumatic. Oropharynx unremarkable. EYES: Normal conjunctiva. Sclera non-icteric. PERRLA. EOMI. NECK: Inspection normal. Non-tender. Supple. No nuchal rigidity. FROM. No masses. RESPIRATORY: Clear to auscultation. No wheezes. No rales. Normal respiratory effort. CARDIAC: Normal rate. Normal rhythm. No murmurs. No rubs. Extremities warm and well perfused. Pulses equal. No JVD. GI: Soft, non-distended. No tenderness to palpation. No rebound or guarding. No masses. RECTAL: Deferred. MUSCULOSKELETAL: Atraumatic. Chest examination reveals no tenderness. The back is symmetrical on inspection without obvious abnormality. There is no CVA tenderness to palpation. No joint edema. LOWER EXTREMITIES: Calves are equal size bilaterally and non-tender. No edema. No discoloration. NEURO: Normal sensorium. No sensory deficits noted. The patient does have mild drift in the left lower extremity. Normal rapid alternating movements. Cranial nerves II through XII intact. Speech normal. SKIN: No rash or jaundice noted. PROCEDURES: none CRITICAL CARE: none OBSERVATION NOTE: none Past Med/Surg History Problem List (Updated 05/05/24 @ 17:50 by Leah Sabillon PA-C) NEREYDA (acute kidney injury) Stroke-like symptoms (Acute) Headache (Acute) Acute ischemic stroke Diarrhea Weakness (Acute) Vitamin D deficiency Neutropenia Hyponatremia with decreased serum osmolality Generalized weakness (Acute) Spinal stenosis of lumbar region Incontinence (Chronic) Myofascial pain Dermatochalasis of both upper eyelids 10/28/23 Shoulder pain Status post arthroscopy of left knee Knee pain, left Encounter for pre-operative examination Episodes of speech arrest 04/21/23 Episodes of staring 04/21/23 Lumbar spondylosis Thrombocytopenia Spinal stenosis Positive ROSANGELA (antinuclear antibody) Scalp hematoma Gastritis 01/30/22 Elevated LFTs Ambulatory dysfunction (Acute) Frequent falls (Acute) Chronic pain disorder Hypocalcemia Anemia Leukopenia Encephalopathy Metabolic acidosis (Acute) Hypomagnesemia (Acute) Chronic hyponatremia S/P cervical spinal fusion ROM WNL History of onel hole surgery History of arthroscopic procedure on shoulder Rt History of carpal tunnel surgery Rt COPD (chronic obstructive pulmonary disease) pt denies Alcoholism (Acute) Chronic pancreatitis pt denies Nonischemic cardiomyopathy Uterine leiomyoma (Chronic 07/18/11) 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/11) Seizure disorder (Chronic 05/16/12) Medical History Acute UTI Bradycardia Acute dehydration Altered mental status Hypotension Lumbar stenosis 03/26/24 MRI showed significant stenosis lumbar spine; pt was originally to have lumbar decompression/fusion but put on hold pending evaluation for pancytopenia History of recent hospitalization [facility] 03/26/24-03/29/24: dx: hyponatremia, weakness, neutropenia, LBP. pt started on fluid restriction and sodium tabs. heme recommended bone marrow bx for neutropenia. ortho/spine consulted for lumbar spinal stenosis but operative mgmt deferred 2/2 comorbidities and pancytopenia. 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 These have been stopped... 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 These have been stopped" Spinal stenosis GERD (gastroesophageal reflux disease) controlled, stable per pt Difficult airway for intubation limited cervical spine extension; s/p cervical spinal fusion Lumbar facet joint syndrome Lumbar spondylosis Hx of falling last fall over 1 year ago per patient Hx of gastritis patient denies recent flare Hx of encephalopathy no issues since stopping ETOH use 2021 COPD (chronic obstructive pulmonary disease) former smoker History of alcoholism (2021) quit 2021 (drank 6 beers/day) Hx of tinnitus Hx of migraines Pulmonary hypertension Hx of per 09/2019 ECHO: Moderate pulmonary HTN: T[place]anie PASP 51mmhg, assuming RAP of 3mmhg; per 03/2024 ECHO: RVSP 31mmHg Seasonal allergies Non-ischemic cardiomyopathy alcoholic CM; EF 35-40% in 2017, 60-65% in 2019 Hx of chronic pancreatitis History of anemia Chronic pain disorder back Positive ROSANGELA (antinuclear antibody) Stress incontinence Chronic cough Follows with [facility] pulm - pt. reports due to pollen and states has nearly resolved in recent months HTN (hypertension) controlled, stable per pt Cirrhosis Hep C induced; pt recently dx with recurrence of Hep C and awaiting tx with hepatology History of subdural hematoma (2010) 2010 Osteoarthritis History of seizure (2010) Following subdural hematoma 2010 from fall. Pt follows with [facility] Neuro; per 01/01/24 Neuro note, pt had 'episode of speech and movement arrest in the context of a histyr of posttraumatic seizures' 04/2023. Had normal EEG. Pt advised by neuro to start keppra but pt refuses. Surgical History Hx of blepharoplasty (01/2024) History of craniotomy (2010) Due to subdural hematoma from fall Hx of hysterectomy Hx of cholecystectomy History of carpal tunnel release right Hx of arthroscopy of shoulder right Hx of arthroscopy of left knee S/P cervical spinal fusion C4-C7 per imaging review History of onel hole surgery (2010) lead to craniotomy History of esophagogastroduodenoscopy (EGD) History of colonoscopy Family History Mother Hypertension Other No family history of adverse response to anesthesia Social History Smoking Status: Former smoker Tobacco Type: Cigarettes Age Started Using Tobacco: 18; Age Quit Using Tobacco: 30; packs per day: 1; Cigarettes Per Day: 1 Pack a day.; Second Hand Exposure: No; Do You Dip or Chew Tobacco: No; Hx Alcohol Use: Yes Alcohol type: beer Alcohol Intake Frequency Comment: 5 beers/day Hx Substance Use: No Preferred Language: Cymraes Communication Ability: Effective Line Decorator Required: No Beliefs That Will Affect Care: None marital status: Single Current Living Situation: Spouse Current Living Situation Comment: Lives at home with . current occupational status: unemployed How many Children do You have: 0 Feels Safe at Home: Yes Assistive Devices: Cane, Stair Lift and Walker Allergies Allergies Allergy/AdvReac Type Severity Reaction Status Date / Time aripiprazole AdvReac Severe seizure Verified 05/05/24 21:04 activity per [facility] EMR gabapentin AdvReac Severe Confusion Verified 05/05/24 21:04 acetaminophen AdvReac Unknown per [facility] Verified 05/05/24 21:04 EMR, to be avoided given cirrhosis ibuprofen AdvReac Unknown per [facility] Verified 05/05/24 21:04 EMR to be avoided given cirrhosis Home Meds Home Medications Medication Instructions Recorded Confirmed rizatriptan 10 mg disintegrating 10 mg PO DIRECTED PRN Migraine 11/21/21 05/05/24 tablet Headache calcium carbonate 600 mg-vitamin 2 cap PO QAM 08/02/22 05/05/24 D3 12.5 mcg (500 unit) capsule (Calcium 600 with Vitamin D3) alendronate 35 mg tablet 35 mg PO WK 04/20/23 05/05/24 buspirone 30 mg tablet 30 mg PO BID 04/20/23 05/05/24 diazepam 5 mg tablet 5 mg PO BID PRN Anxiety 04/20/23 05/05/24 multivitamin-ferrous 1 tab PO QAM 04/20/23 05/05/24 fumarate-folic acid 18 mg-400 mcg tablet (Centrum Women) omeprazole 40 mg capsule,delayed 40 mg PO DAILY gerd 04/20/23 05/05/24 release losartan 25 mg tablet 25 mg PO BID 07/31/23 05/05/24 nystatin 100,000 unit/gram topical 1 applic topical UD PRN Skin 07/31/23 05/05/24 cream Irritation clotrimazole 2 % vaginal cream 1 appful topical UD PRN Vaginal 04/23/24 05/05/24 Dryness carvedilol 3.125 mg tablet 3.125 mg PO BID 04/26/24 05/05/24 fluoxetine 20 mg capsule See Rx Instructions .Route .COMPLEX 04/26/24 05/05/24 fluoxetine 40 mg capsule See Rx Instructions .Route .COMPLEX 04/26/24 05/05/24 oxycodone 5 mg tablet 5 mg PO Q6H PRN Pain 04/26/24 05/05/24 trazodone 150 mg tablet 225 mg PO HS PRN Insomnia 04/26/24 05/05/24 sodium chloride 1,000 mg soluble 1,000 mg PO BID 05/05/24 05/05/24 tablet Previous Rx's Medication Instructions Recorded aspirin 81 mg tablet,delayed 81 mg PO DAILY #30 tabs 04/30/24 release atorvastatin 40 mg tablet 40 mg PO QAM #30 tabs 04/30/24 thiamine HCl (vitamin B1) 100 mg 100 mg PO QAM #30 tabs 04/30/24 tablet Results & Data (ED) Vital Signs Vital Signs - 24 hr 05/05/24 14:40 05/05/24 16:18 05/05/24 16:30 Temperature 36.5 C Temperature Source Temporal Artery Scan Pulse Rate 62 64 65 Pulse Rate from SpO2 Sensor Respiratory Rate 16 16 Respiratory Effort / Characteristics Non-Labored Spontaneous Respiratory Depth Normal Blood Pressure 112/75 162/82 H Blood Pressure Mean 87 108 Pulse Oximetry 99 94 Oxygen Delivery Method Room Air Sepsis Recent Fever Within 48 Hours No Sepsis New/Unexplained Change in Mental Status No Sepsis Action Taken by Nursing No Action Required 05/05/24 17:33 05/05/24 18:00 05/05/24 18:00 Temperature Temperature Source Pulse Rate 67 66 Pulse Rate from SpO2 Sensor 67 66 Respiratory Rate 16 Respiratory Effort / Characteristics Respiratory Depth Blood Pressure 147/82 H 156/85 H Blood Pressure Mean 103 117 Pulse Oximetry 99 99 Oxygen Delivery Method Sepsis Recent Fever Within 48 Hours Sepsis New/Unexplained Change in Mental Status Sepsis Action Taken by Nursing 05/05/24 18:57 05/05/24 19:07 05/05/24 19:09 Temperature Temperature Source Pulse Rate 65 66 Pulse Rate from SpO2 Sensor 65 Respiratory Rate 16 Respiratory Effort / Characteristics Respiratory Depth Blood Pressure 143/98 H Blood Pressure Mean 104 Pulse Oximetry 97 Oxygen Delivery Method Sepsis Recent Fever Within 48 Hours Sepsis New/Unexplained Change in Mental Status Sepsis Action Taken by Nursing 05/05/24 19:30 05/05/24 19:57 05/05/24 20:01 Temperature Temperature Source Pulse Rate 63 61 Pulse Rate from SpO2 Sensor 63 61 Respiratory Rate 13 12 Respiratory Effort / Characteristics Respiratory Depth Blood Pressure 130/58 L Blood Pressure Mean 84 Pulse Oximetry 99 99 Oxygen Delivery Method Sepsis Recent Fever Within 48 Hours Sepsis New/Unexplained Change in Mental Status Sepsis Action Taken by Nursing 05/05/24 20:18 05/05/24 20:27 05/05/24 20:45 Temperature Temperature Source Pulse Rate 62 60 62 Pulse Rate from SpO2 Sensor 62 60 62 Respiratory Rate 14 14 13 Respiratory Effort / Characteristics Respiratory Depth Blood Pressure Blood Pressure Mean Pulse Oximetry 98 98 98 Oxygen Delivery Method Sepsis Recent Fever Within 48 Hours Sepsis New/Unexplained Change in Mental Status Sepsis Action Taken by Nursing 05/05/24 21:01 05/05/24 21:01 05/05/24 21:03 Temperature Temperature Source Pulse Rate 61 Pulse Rate from SpO2 Sensor 61 Respiratory Rate 17 Respiratory Effort / Characteristics Respiratory Depth Blood Pressure 133/50 L 133/50 L Blood Pressure Mean 81 81 Pulse Oximetry 96 Oxygen Delivery Method Sepsis Recent Fever Within 48 Hours Sepsis New/Unexplained Change in Mental Status Sepsis Action Taken by Nursing Laboratory Data 05/05/24 15:22 05/05/24 15:22 Lab Results 05/05/24 Range/Units 15:22 WBC 3.26 L (4.8-10.8) K/ul RBC 3.75 L (4.20-5.40) M/uL Hgb 12.6 (12.0-16.0) g/dl Hct 37.6 (37.0-47.0) % MCV 100.3 H (80.0-100.0) fL MCH 33.6 (25.0-34.0) pg MCHC 33.5 (32.0-36.0) g/dL RDW Std Deviation 47.5 H (36.4-46.3) fL RDW Coeff of [place] 12.8 (11.5-14.5) % Plt Count 119 L (130-400) K/uL MPV 8.7 L (9.4-12.4) fL Immature Gran % (Auto) 0.3 % Neut % (Auto) 65.0 % Lymph % (Auto) 20.6 % [place] % (Auto) 12.0 % Eos % (Auto) 1.8 % Baso % (Auto) 0.3 % Neut # (Auto) 2.12 (1.40-6.50) K/uL Lymph # (Auto) 0.67 L (1.20-3.40) K/uL [place] # (Auto) 0.39 (0.11-0.59) K/uL Eos # (Auto) 0.06 (0.00-0.50) K/uL Baso # (Auto) 0.01 (0.00-0.20) K/uL Immature Gran # (Auto) 0.01 (0.01-0.20) K/uL PT 11.0 (9.0-12.0) Seconds INR 1.0 (0.9-1.1) APTT 26 (21-31) Seconds PTT Ratio 1.0 Sodium 135 L (136-145) mmol/L Potassium 4.3 (3.5-5.1) mmol/L Chloride 103 (98-107) mmol/L Carbon Dioxide 25 (21-32) mmol/L Anion Gap 7 (3-11) BUN 11 (6-23) mg/dl Creatinine 1.24 H (0.6-1.2) mg/dl Est Cr Clr Drug Dosing Not Reportable Est GFR ( Amer) 52.8 ml/min Est GFR (Non-Af Amer) 45.5 ml/min BUN/Creatinine Ratio 8.9 L (10-20) Glucose 116 H (70-99(Fasting)) mg/dl Calcium 9.2 (8.6-10.3) mg/dl Magnesium 2.4 (1.7-2.4) mg/dl Total Bilirubin 0.6 (0.2-1.0) mg/dl AST 30 (13-39) U/L ALT 24 (7-52) U/L Alkaline Phosphatase 63 (34-104) U/L Troponin I High Sens 3.8 (0-14) pg/ml Total Protein 7.1 (6.0-8.3) gm/dl Albumin 4.4 (3.4-5.0) gm/dl Globulin 2.7 (2.5-4.0) gm/dl Albumin/Globulin Ratio 1.6 (0.9-2) Blood Type A Negative Antibody Screen NEGATIVE Administered Medications Sodium Chloride (Nss) 1,000 mls @ 50 mls/hr IV .Q20H LAURA Stop: 06/04/24 15:14 Last Admin: 05/05/24 19:13 Dose: 50 mls/hr Documented By: FAY Discontinued Medications Acetaminophen (Acetaminophen 325 Mg Tab) 650 mg PO NOW STA Stop: 05/05/24 17:33 Last Admin: 05/05/24 19:11 Dose: 650 mg Documented By: FAY Ioversol (Optiray 320 125ml) 117 ml IV ONCE ONE Stop: 05/05/24 16:13 Last Admin: 05/05/24 16:12 Dose: 117 ml Documented By: MIGUEL ANGEL Imaging Data Radiologist's Impression: Chest X-Ray 05/05/24 15:02 XR chest 1V portable HISTORY: 64 years-old Female neuro deficit, acute stroke suspected COMPARISON: 04/26/24 TECHNIQUE: AP view of the chest FINDINGS: Postoperative findings within the spine are incidentally noted. There is no pneumothorax or pleural effusion. There is no consolidation or evidence for pulmonary edema. Linear left basilar density represents atelectasis. Cardiomediastinal silhouette is unremarkable. IMPRESSION: No acute cardiopulmonary findings. ACT 112: Negative or not required by law. The above report was generated using voice recognition software. It may contain grammatical, syntax or spelling errors. Electronically signed by: Ashu Gusman M.D. 05/05/2024 5:[address] 05/05/24 15:[address] DOSE: 547.75 mGy.cm HISTORY: Dizziness. neuro deficit, acute stroke suspected TECHNIQUE: Multiaxial CT images of the head were performed without the use of intravenous contrast. Automated exposure control was utilized for this study. A dose lowering technique was utilized adhering to the principles of ALARA. Comparison: Head CT 04/26/2024. Findings: The paranasal sinuses and mastoid air cells are clear. Prior right- sided craniotomy again noted. No calvarial fractures. There is no mass or acute intracranial hemorrhage identified. The punctate acute lacunar infarct within the left putamen seen on the recent MRI is not well evaluated by this modality. No definite acute infarct identified. White matter hypodensity is nonspecific but suggestive of microvascular ischemic change. The ventricles and sulci demonstrate mild age-related involutional changes. Impression: 1. No definite acute infarct or acute intracranial hemorrhage. 2. The punctate lacunar infarct seen within the left basal ganglia on the recent MRI is not well identified by this modality. ACT 112: Negative or not required by law. Electronically signed by: Charan Miles M.D. 05/05/2024 3:36 PM Head CTA 05/05/24 15:02 CT angio head w con CLINICAL HISTORY: 64 years-old Female with neuro deficit, acute stroke suspected. Acute stroke like symptoms COMPARISON STUDY: Head CT of same day, CT neck 04/27/2024, brain MRI 04/27/2024 TECHNIQUE: Following the IV administration of 117 cc of Optiray, CT angiogram of the brain was performed from the skull base to the vertex. Images are reviewed in the axial, sagittal, and coronal planes. 3-D MIPS images are created and assessed. IV contrast was administered without complication. All measurements were obtained according to NASCET criteria. A dose lowering technique was utilized adhering to the principles of ALARA. FINDINGS: CT ANGIOGRAM OF THE BRAIN: The imaged bilateral internal carotid arteries are patent. The bilateral anterior and middle cerebral arteries are also patent. The vertebrobasilar system and posterior cerebral arteries are widely patent. There is no aneurysm, high-grade stenosis, or proximal branch occlusion identified. Dural sinuses appear patent. Right-sided craniotomy changes redemonstrated. The vertebral and basilar arteries are hypoplastic. origin of the posterior cerebral arteries. The punctate infarcts in the left subinsular distribution seen on the prior brain MRI is not definitively seen. IMPRESSION: Unremarkable CTA of the head. ACT 112: Negative or not required by law. The above report was generated using voice recognition software. It may contain grammatical, syntax or spelling errors. Electronically signed by: Ashu Gusman M.D. 05/05/2024 4:34 PM Neck CTA 05/05/24 15:02 CT ANGIOGRAPHY OF THE NECK WITH CONTRAST CLINICAL HISTORY: neuro deficit, acute stroke suspected COMPARISON STUDY: CTA of the neck April 27, 2024. Technique: CT angiography of the carotid and vertebral arteries was obtained using Optiray and 3D reconstruction on an independent workstation. NASCET criteria was utilized. Automated exposure control was utilized for the study. A dose lowering technique was utilized adhering to the principles of ALARA. CT DOSE: 472.13 mGy.cm Findings: Visualized portions of the lung apices are unremarkable. There are no cervical spine fractures. Status post C4-C7 anterior discectomy and fusion. 40% stenosis of the proximal right internal carotid artery due to calcified atherosclerotic plaque is unchanged. There is moderate plaque within the left carotid bifurcation without stenosis. Right vertebral artery is dominant and patent. Left vertebral artery is diminutive on a congenital basis. There is mild plaque within the proximal left subclavian artery without stenosis. There is no dissection or aneurysm within the neck. IMPRESSION: 1. No change in 40% stenosis of the proximal right internal carotid artery due to calcified atherosclerotic plaque. 2. No additional stenoses within the major vessels of the neck. 3. Dominant, patent right vertebral artery. Diminutive left vertebral artery on a congenital basis. ACT 112: Negative or not required by law. Electronically signed by: Ion Azul M.D. 05/05/2024 4:30 PM Brain MRI 05/05/24 16:18 MR brain wo con HISTORY: 64 years-old Female acute stroke symptoms acute strokelike symptoms COMPARISON: Head CT of same day, brain MRI 04/27/2024 TECHNIQUE: Multiplanar multisequence MRI of the brain was obtained without IV contrast. FINDINGS: The previously noted punctate focus of restricted diffusion in involving the left subinsular distribution is not visualized on today's study. No restricted diffusion identified. Midline structures are unremarkable. Cerebral venous sinuses and major arterial flow voids appear patent. Skull, orbits and soft tissues are unremarkable. No acute intracranial hemorrhage, midline shift, abnormal extra-axial collection, hydrocephalus or intra-axial mass. Involutional changes with minimal T2/FLAIR hyperintense foci are noted within the white matter suggestive of chronic microvascular ischemic disease. IMPRESSION: 1. No acute intracranial abnormality identified. 2. Previously noted punctate left subinsular lacunar infarct is not visualized on today's study. 3. Involutional changes with suggestion of mild chronic microvascular ischemic disease. ACT 112: Negative or not required by law. The above report was generated using voice recognition software. It may contain grammatical, syntax or spelling errors. Electronically signed by: Ashu Gusman M.D. 05/05/2024 6:41 PM Discharge Plan Visit Data Chief Complaint: TIA Symptoms Stated Complaint: STROKE-LIKE SX, DIZZINESS, HEADACHE, REF BY DOC ED Provider: Richard Parrish Discharge Problem: Headache, Stroke-like symptoms Forms Stand Alone Forms: [facility] [employer] Prescriptions Prescriptions: No Action calcium carbonate-vitamin D3 [Calcium 600 with Vitamin D3] 600 mg-12.5 mcg (500 unit) capsule 2 cap PO QAM Hold Instructions: SURGERY nystatin 100,000 unit/gram cream 1 applic topical UD PRN (Reason: Skin Irritation) losartan 25 mg tablet 25 mg PO BID rizatriptan 10 mg tablet,disintegrating 10 mg PO DIRECTED MDD 3 DOSES/24 HOURS PRN (Reason: Migraine Headache) Rx Instructions: TAKE 10 MG AT ONSET OF YEPEZ, THEN REPEAT IN 2 HOURS IF NEEDED. MAX 3 DOSES/24 HOURS. omeprazole 40 mg capsule,delayed release(DR/EC) 40 mg PO DAILY alendronate 35 mg tablet 35 mg PO WK Rx Instructions: Pt usually takes on Friday mornings, but forgot to take it on 04/25/24 so she took it on the morning of 04/26/24 buspirone 30 mg tablet 30 mg PO BID diazepam 5 mg tablet 5 mg PO BID PRN (Reason: Anxiety) Centrum Women 18-400 mg-mcg Tablet 1 tab PO QAM Hold Instructions: SURGERY clotrimazole 2 % cream 1 appful topical UD PRN (Reason: Vaginal Dryness) sodium chloride 1,000 mg tablet,soluble 1,000 mg PO BID fluoxetine 40 mg capsule See Rx Instructions .ROUTE .COMPLEX Rx Instructions: Take 40mg w/ 20mg every morning to equal 60mg carvedilol 3.125 mg tablet 3.125 mg PO BID trazodone 150 mg tablet 225 mg PO HS PRN (Reason: Insomnia) fluoxetine 20 mg capsule See Rx Instructions .ROUTE .COMPLEX Rx Instructions: Take 20mg w/ 40mg every morning to equal 60mg oxycodone 5 mg tablet 5 mg PO Q6H PRN (Reason: Pain) atorvastatin 40 mg Tablet 40 mg PO QAM Qty: 30 0RF aspirin 81 mg Tablet,Delayed Release (Dr/Ec) 81 mg PO DAILY Qty: 30 0RF thiamine HCl (vitamin B1) 100 mg Tablet 100 mg PO QAM Qty: 30 0RF Referrals Referrals: Swetha Newberry DO [Primary Care Provider] -
--- NOTE | 2024-05-05 15:38 | CT Scan Report ---
HEAD CT NONCONTRAST CT DOSE: 547.75 mGy.cm HISTORY: Dizziness. neuro deficit, acute stroke suspected TECHNIQUE: Multiaxial CT images of the head were performed without the use of intravenous contrast. A utomated exposure control was utilized for this study. A dose lowering technique was utilized adheri ng to the principles of ALARA. Comparison: Head CT 04/26/2024. Findings: The paranasal sinuses and mastoid air cells are clear. Prior right-sided craniotomy again n oted. No calvarial fractures. There is no mass or acute intracranial hemorrhage identified. The punct ate acute lacunar infarct within the left putamen seen on the recent MRI is not well evaluated by thi s modality. No definite acute infarct identified. White matter hypodensity is nonspecific but suggest milan of microvascular ischemic change. The ventricles and sulci demonstrate mild age-related involutio nal changes. Impression: 1. No definite acute infarct or acute intracranial hemorrhage. 2. The punctate lacunar infarct seen within the left basal ganglia on the recent MRI is not well iden tified by this modality. ACT 112: Negative or not required by law. Electronically signed by: Charan Miles M.D. 05/05/2024 3:36 PM
[2024-05-05 15:39] LABS: Basophils # (auto) 0.01 K/uL (0.00-0.20); Basophils % (auto) 0.3 %; Eosinophils # (auto) 0.06 K/uL (0.00-0.50); Eosinophils % (auto) 1.8 %; Hematocrit (blood only) 37.6 % (37.0-47.0); Hemoglobin 12.6 g/dl (12.0-16.0); Immature Granulocytes # (auto) 0.01 K/uL (0.01-0.20); Immature Granulocytes % (auto) 0.3 %; Lymphocytes # (auto) 0.67 K/uL (1.20-3.40); Lymphocytes % (auto) 20.6 %; Mean Corpuscular Hemoglobin 33.6 pg (25.0-34.0); Mean Corpuscular Hgb Conc 33.5 g/dL (32.0-36.0); Mean Corpuscular Volume 100.3 fL (80.0-100.0); Mean Platelet Volume 8.7 fL (9.4-12.4); Monocytes # (auto) 0.39 K/uL (0.11-0.59); Neutrophils # (auto) 2.12 K/uL (1.40-6.50); Platelet Count 119 K/uL (130-400); RDW Coefficient of Variation 12.8 % (11.5-14.5); RDW Standard Deviation 47.5 fL (36.4-46.3); Red Blood Count 3.75 M/uL (4.20-5.40); White Blood Count 3.26 K/ul (4.8-10.8)
[2024-05-05 15:56] LABS: Alanine Aminotransferase 24 U/L (7-52); Albumin Globulin Ratio 1.6 (0.9-2); Albumin Level 4.4 gm/dl (3.4-5.0); Alkaline Phosphatase 63 U/L (34-104); Anion Gap 7 (3-11); Aspartate Aminotransferase 30 U/L (13-39); BUN Creatinine Ratio 8.9 (10-20); Bilirubin,Total 0.6 mg/dl (0.2-1.0); Blood Urea Nitrogen 11 mg/dl (6-23); Calcium 9.2 mg/dl (8.6-10.3); Carbon Dioxide 25 mmol/L (21-32); Chloride 103 mmol/L (98-107); Est GFR (African American) 52.8 ml/min; Est GFR (Non-African American) 45.5 ml/min; Globulin 2.7 gm/dl (2.5-4.0); Glucose 116 mg/dl (70-99(Fasting)); Magnesium 2.4 mg/dl (1.7-2.4); Potassium 4.3 mmol/L (3.5-5.1); Sodium 135 mmol/L (136-145); Total Protein 7.1 gm/dl (6.0-8.3)
[2024-05-05 15:59] LABS: Partial Thromboplastin Time 26 Seconds (21-31)
[2024-05-05 16:03] LABS: Troponin I High Sensitivity 3.8 pg/ml (0-14)
[2024-05-05] MEDS: OPTIRAY 320 125ml IV ONE (16:12)
--- NOTE | 2024-05-05 16:32 | CT Scan Report ---
CT ANGIOGRAPHY OF THE NECK WITH CONTRAST CLINICAL HISTORY: neuro deficit, acute stroke suspected COMPARISON STUDY: CTA of the neck April 27, 2024. Technique: CT angiography of the carotid and vertebral arteries was obtained using Optiray and 3D rec onstruction on an independent workstation. NASCET criteria was utilized. Automated exposure control was utilized for the study. A dose lowering technique was utilized adhering to the principles of ALA RA. CT DOSE: 472.13 mGy.cm Findings: Visualized portions of the lung apices are unremarkable. There are no cervical spine fractu res. Status post C4-C7 anterior discectomy and fusion. 40% stenosis of the proximal right internal ca rotid artery due to calcified atherosclerotic plaque is unchanged. There is moderate plaque within th e left carotid bifurcation without stenosis. Right vertebral artery is dominant and patent. Left vert ebral artery is diminutive on a congenital basis. There is mild plaque within the proximal left subcl brady artery without stenosis. There is no dissection or aneurysm within the neck. IMPRESSION: 1. No change in 40% stenosis of the proximal right internal carotid artery due to calcified atheroscl erotic plaque. 2. No additional stenoses within the major vessels of the neck. 3. Dominant, patent right vertebral artery. Diminutive left vertebral artery on a congenital basis. ACT 112: Negative or not required by law. Electronically signed by: Ion Azul M.D. 05/05/2024 4:30 PM
--- NOTE | 2024-05-05 16:37 | CT Scan Report ---
CT angio head w con CLINICAL HISTORY: 64 years-old Female with neuro deficit, acute stroke suspected. Acute stroke lik e symptoms COMPARISON STUDY: Head CT of same day, CT neck 04/27/2024, brain MRI 04/27/2024 TECHNIQUE: Following the IV administration of 117 cc of Optiray, CT angiogram of the brain was perfor med from the skull base to the vertex. Images are reviewed in the axial, sagittal, and coronal planes . 3-D MIPS images are created and assessed. IV contrast was administered without complication. All me asurements were obtained according to NASCET criteria. A dose lowering technique was utilized adherin g to the principles of ALARA. FINDINGS: CT ANGIOGRAM OF THE BRAIN: The imaged bilateral internal carotid arteries are patent. The bilateral anterior and middle cerebral arteries are also patent. The vertebrobasilar system and posterior cerebral arteries are widely tobin nt. There is no aneurysm, high-grade stenosis, or proximal branch occlusion identified. Dural sinuses appear patent. Right-sided craniotomy changes redemonstrated. The vertebral and basilar arteries are hypoplastic. Fe leroy origin of the posterior cerebral arteries. The punctate infarcts in the left subinsular distribut ion seen on the prior brain MRI is not definitively seen. IMPRESSION: Unremarkable CTA of the head. ACT 112: Negative or not required by law. The above report was generated using voice recognition software. It may contain grammatical, syntax o r spelling errors. Electronically signed by: Ashu Gusman M.D. 05/05/2024 4:34 PM
--- NOTE | 2024-05-05 16:53 | History & Physical Report ---
Date of Service May 05, 2024 Assessment & Plan (1) Stroke-like symptoms: Plan: - patient with recent acute lacunar infarct on left putamen area found on MRI during previous admission (04/26-04/30) - not seen on prior CT studies during previous admission - started on baby aspirin and atorvastatin 40mg; patient not a candidate for DAPT due to chronic thrombocytopenia - was d/c with home PT services - Patient presents with dizziness, left leg weakness, headache, and difficulty finding words since 1350 on 05/05 - CT head and CTA head negative for acute infarct on admission - Neck CTA showed 40% stenosis of right proximal artery, consistent with previous CTA. Along with dominant right vertebral artery and diminutive left vertebral artery. - Recent echo 03/25/24 showed EF 60-65%, no regional wall abnormalities. - telestroke recommending MRI and continue to monitor. Patient is not a candidate or TNK due to recent CVA. - permissive Hypertension for next 24 hours; keep SBP goal range less than 220, avoid hypotension. - A1c 4.7% on 04/28/24 - continue home ASA and statin - MRI pending - Q4H neuro checks - neurology consulted - telemetry monitoring (2) Weakness: Plan: - Chronic since July 2023 - Follows with rheumatology, hepatology, heme/onc, and neurology outpatient due to ongoing weakness and fatigue - Bone marrow biopsy to be taken tomorrow by heme/onc outpt due to ongoing leukopenia/thrombocytopenia; will need to reschedule out pt upon discharge - B12 04/21/24 WNL. Ammonia WNL 04/27. TSH mildly elevated 4.9, free T4 WNL on 04/26. - Recent thiamine elevated at 147 - Tick borne panel in 04/2023 negative. - magnesium stable (3) NEREYDA (acute kidney injury): Plan: - likely secondary to fluid restriction - Cr 1.24, Bun 8.9 on admission - patient clinically dry on exam - gentle fluid resuscitation with NSS - continue to monitor renal function with daily BMP (4) Chronic hyponatremia: Plan: - continue home sodium chloride - Na+ baseline on admission - on 1500 mL fluid restricted diet out pt, will discontinue - clinically appears dry on exam, with worsening of renal function - continue home sodium chloride tablet - continue to monitor on daily BMP Plan VTE ppx: SCDs - patient with chronic thrombocytopenia - will withhold pharmacologic management Diet: regular Code status: Full code Chronic stable diagnoses: Depression - continue home buspirone and fluoxetine, diazepam and trazodone prn Gerd - continue omeprazole leukocytopenia - chronic, to have bone marrow biopsy out pt Admission and Anticipated Discharge Date Admission Date: 05/05/24 History of Present Illness Chief Complaint: Stroke like symptoms Primary Care Provider: Swetha Prakash DO Patient is a 64-year-old female with a past medical history of TIA on 04/28/24, generalized weakness, hyponatremia, spinal stenosis, alcoholism, depression, GERD, hepatitis C, leukopenia/thrombocytopenia, alcohol induced cardiomyopathy, pulmonary hypertension, chronic pancreatitis, liver cirrhosis, migraines, osteoporosis, and tricuspid regurgitation. Patient presents today with dizziness, headache, difficulty finding words, and left leg weakness that began around 1350 today. Her symptoms are still present and unchanged since they began. She also complains of blurry vision And tingling of her feet about 20 minutes ago. Patient has been nauseous since this morning. She stated that her dizziness is more so like lightheadedness and not like the room is spinning. Although patient states that her dizziness has been ongoing for few months. Patient was recently hospitalized 04/26- 04/30 for weakness and acute lacunar infarct was found on MRI. Patient has been asymptomatic since discharge been taking her new home medications of aspirin and statin. Her diarrhea from her previous admission has since resolved. Her last episode of diarrhea was shortly after arriving home on previous discharge. Patient denies rhinorrhea, sore throat, cough, sputum production, dyspnea, dyspnea on exertion, chest pain, vomiting, diarrhea, constipation, dysuria, hematuria, edema, and numbness. She has chronic abdominal pain due to chronic pancreatitis. She has chronic low back and knee pain. Patient has been fluid restricting at home due to chronic hyponatremia. She takes this sodium chloride daily. She took all of her home medications this morning. She wishes to be full code at this time and has a written living will and power of claims attorney. Patient's at bedside on exam. Patient's bone marrow biopsy as scheduled for tomorrow. She does not smoke, drink alcohol, or use illicit drugs. Allergies Allergy/AdvReac Type Severity Reaction Status Date / Time aripiprazole AdvReac Severe seizure Verified 05/05/24 21:04 activity per [facility] EMR gabapentin AdvReac Severe Confusion Verified 05/05/24 21:04 acetaminophen AdvReac Unknown per [facility] Verified 05/05/24 21:04 EMR, to be avoided given cirrhosis ibuprofen AdvReac Unknown per [facility] Verified 05/05/24 21:04 EMR to be avoided given cirrhosis Home Medications Medication Instructions Recorded Confirmed Type rizatriptan 10 mg disintegrating 10 mg PO DIRECTED PRN Migraine 11/21/21 05/05/24 History tablet Headache calcium carbonate 600 mg-vitamin 2 cap PO QAM 08/02/22 05/05/24 History D3 12.5 mcg (500 unit) capsule (Calcium 600 with Vitamin D3) alendronate 35 mg tablet 35 mg PO WK 04/20/23 05/05/24 History buspirone 30 mg tablet 30 mg PO BID 04/20/23 05/05/24 History diazepam 5 mg tablet 5 mg PO BID PRN Anxiety 04/20/23 05/05/24 History multivitamin-ferrous 1 tab PO QAM 04/20/23 05/05/24 History fumarate-folic acid 18 mg-400 mcg tablet (Centrum Women) omeprazole 40 mg capsule,delayed 40 mg PO DAILY gerd 04/20/23 05/05/24 History release losartan 25 mg tablet 25 mg PO BID 07/31/23 05/05/24 History nystatin 100,000 unit/gram topical 1 applic topical UD PRN Skin 07/31/23 05/05/24 History cream Irritation clotrimazole 2 % vaginal cream 1 appful topical UD PRN Vaginal 04/23/24 05/05/24 History Dryness carvedilol 3.125 mg tablet 3.125 mg PO BID 04/26/24 05/05/24 History fluoxetine 20 mg capsule See Rx Instructions .Route .COMPLEX 04/26/24 05/05/24 History fluoxetine 40 mg capsule See Rx Instructions .Route .COMPLEX 04/26/24 05/05/24 History oxycodone 5 mg tablet 5 mg PO Q6H PRN Pain 04/26/24 05/05/24 History trazodone 150 mg tablet 225 mg PO HS PRN Insomnia 04/26/24 05/05/24 History aspirin 81 mg tablet,delayed 81 mg PO DAILY #30 tabs 04/30/24 05/05/24 Rx release atorvastatin 40 mg tablet 40 mg PO QAM #30 tabs 04/30/24 05/05/24 Rx thiamine HCl (vitamin B1) 100 mg 100 mg PO QAM #30 tabs 04/30/24 05/05/24 Rx tablet sodium chloride 1,000 mg soluble 1,000 mg PO BID 05/05/24 05/05/24 History tablet Past Med/Surg History Problem List (Updated 05/06/24 @ 09:54 by Richard Daly MD) NEREYDA (acute kidney injury) Stroke-like symptoms (Acute) Headache (Acute) Acute ischemic stroke Diarrhea Weakness (Acute) Vitamin D deficiency Neutropenia Hyponatremia with decreased serum osmolality Generalized weakness (Acute) Spinal stenosis of lumbar region Incontinence (Chronic) Myofascial pain Dermatochalasis of both upper eyelids 10/28/23 Shoulder pain Status post arthroscopy of left knee Knee pain, left Encounter for pre-operative examination Episodes of speech arrest 04/21/23 Episodes of staring 04/21/23 Lumbar spondylosis Thrombocytopenia Spinal stenosis Positive ROSANGELA (antinuclear antibody) Scalp hematoma Gastritis 01/30/22 Elevated LFTs Ambulatory dysfunction (Acute) Frequent falls (Acute) Chronic pain disorder Hypocalcemia Anemia Leukopenia Encephalopathy Metabolic acidosis (Acute) Hypomagnesemia (Acute) Chronic hyponatremia S/P cervical spinal fusion ROM WNL History of onel hole surgery History of arthroscopic procedure on shoulder Rt History of carpal tunnel surgery Rt COPD (chronic obstructive pulmonary disease) pt denies Alcoholism (Acute) Chronic pancreatitis pt denies Nonischemic cardiomyopathy Uterine leiomyoma (Chronic 07/18/11) 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/11) Seizure disorder (Chronic 05/16/12) Medical History Acute UTI Bradycardia Acute dehydration Altered mental status Hypotension Lumbar stenosis 03/26/24 MRI showed significant stenosis lumbar spine; pt was originally to have lumbar decompression/fusion but put on hold pending evaluation for pancytopenia History of recent hospitalization [facility] 03/26/24-03/29/24: dx: hyponatremia, weakness, neutropenia, LBP. pt started on fluid restriction and sodium tabs. heme recommended bone marrow bx for neutropenia. ortho/spine consulted for lumbar spinal stenosis but operative mgmt deferred 2/2 comorbidities and pancytopenia. 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 These have been stopped... 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 These have been stopped" Spinal stenosis GERD (gastroesophageal reflux disease) controlled, stable per pt Difficult airway for intubation limited cervical spine extension; s/p cervical spinal fusion Lumbar facet joint syndrome Lumbar spondylosis Hx of falling last fall over 1 year ago per patient Hx of gastritis patient denies recent flare Hx of encephalopathy no issues since stopping ETOH use 2021 COPD (chronic obstructive pulmonary disease) former smoker History of alcoholism (2021) quit 2021 (drank 6 beers/day) Hx of tinnitus Hx of migraines Pulmonary hypertension Hx of per 09/2019 ECHO: Moderate pulmonary HTN: Tiffanie PASP 51mmhg, assuming RAP of 3mmhg; per 03/2024 ECHO: RVSP 31mmHg Seasonal allergies Non-ischemic cardiomyopathy alcoholic CM; EF 35-40% in 2018, 60-65% in 2019 Hx of chronic pancreatitis History of anemia Chronic pain disorder back Positive ROSANGELA (antinuclear antibody) Stress incontinence Chronic cough Follows with [facility] pulm - pt. reports due to pollen and states has nearly resolved in recent months HTN (hypertension) controlled, stable per pt Cirrhosis Hep C induced; pt recently dx with recurrence of Hep C and awaiting tx with hepatology History of subdural hematoma (2010) 2010 Osteoarthritis History of seizure (2010) Following subdural hematoma 2010 from fall. Pt follows with [facility] Neuro; per 01/01/24 Neuro note, pt had 'episode of speech and movement arrest in the context of a histyr of posttraumatic seizures' 04/2023. Had normal EEG. Pt advised by neuro to start keppra but pt refuses. Surgical History Hx of blepharoplasty (01/2024) History of craniotomy (2010) Due to subdural hematoma from fall Hx of hysterectomy Hx of cholecystectomy History of carpal tunnel release right Hx of arthroscopy of shoulder right Hx of arthroscopy of left knee S/P cervical spinal fusion C4-C7 per imaging review History of onel hole surgery (2010) lead to craniotomy History of esophagogastroduodenoscopy (EGD) History of colonoscopy Family History Mother Hypertension Other No family history of adverse response to anesthesia Social History Smoking Status: Former smoker Tobacco Type: Cigarettes Age Started Using Tobacco: 18; Age Quit Using Tobacco: 30; packs per day: 1; Cigarettes Per Day: 1 pack a day; Second Hand Exposure: No; Do You Dip or Chew Tobacco: No; Tobacco Cessation Education Requested by Patient: No Hx Alcohol Use: Yes Alcohol type: beer Alcohol Intake Frequency Comment: 5 beers/day Hx Substance Use: No Preferred Language: Pakistani Communication Ability: Effective Telemetry Monitor Required: No Beliefs That Will Affect Care: None marital status: Single Current Living Situation: Spouse Current Living Situation Comment: Lives at home with . current occupational status: unemployed How many Children do You have: 0 Other Information That Helps Us Care for You: No Feels Safe at Home: Yes Safety Concerns: Feels Safe At This Time Assistive Devices: Hearing Aid - Bilateral, Walker and Wheelchair Review of Systems Review of Systems: See HPI Physical Exam Physical Exam: The patient is awake, alert and oriented 3, well developed and well nourished, normocephalic and atraumatic, in no acute distress. Non-toxic appearing. HEENT- PEERL, EOMI, mucous membranes dry. Hearing grossly intact. Heart-normal S1 and S2. No murmurs, rubs or gallops. Lungs-clear bilaterally, no respiratory distress, no accessory muscle use. Abdomen-normal bowel sounds and soft. No ascites noted. Non-tender. Extremities- no clubbing, cyanosis, or edema. Neuro - Cranial nerves 2-12 intact. Left sided temporal region sensation decreased. Sensation equal in bilateral upper and lower extremities. Strength 5/5 in upper extremities. Strength 3/5 on lower extremities. Psychiatric-normal affect. Results & Data Results & Data Vital Signs (Past 12 Hours) Vital Signs Temp Pulse Resp BP Pulse Ox O2 Del Method 05/05/24 16:18 64 05/05/24 14:40 36.5 C 62 16 112/75 99 Room Air Code Status & VTE Plan Code Status Full code VTE Prophylaxis Plan VTE Prophylaxis will be ordered: Yes Supervising Physician Co-Signing Physician Notes I personally saw and examined the patient. I independently reviewed the labs, EKG, imaging, problem list, medication list, past medical history and family history. I verified all rachel points and agree with Leah Sabillon PA-C with the following exceptions and/or additions: 64 year old female presents to the ER with dizziness, headache, slurred speech and left leg weakness that started today. She reports the left leg weakness has improved when seen. Recent diagnosed with a stroke 1 week ago on brain MRI but presented with generalized weakness at that time although history taking from the patient may not be accurate. O/E A&Ox3, HS RRR, no murmurs, Chest CTAB, Abdo SNT, chronic diplopia reported by patient, normal speech exam, CN 2-> 12 otherwise intact, b/l upper and lower extremity strength without lateralizing deficit but reduced strength b/l of lower extremities, no sensation loss A/P Stroke-like symptoms - brain MRI, neuro consult, no need to repeat TTE, lipid panel, HbA1C PG Care Time/CCT Total # of Minutes Spent Total Time Spent with Patient: Total time spent is greater than 50% in coordination of care (as documented) at patient's floor/unit and/or counseling patient: Coding Level of Care Code None Diagnoses Stroke-like symptoms R29.90 Weakness R53.1 NEREYDA (acute kidney injury) N17.9 Chronic hyponatremia E87.1
--- NOTE | 2024-05-05 17:11 | XRay Report ---
XR chest 1V portable HISTORY: 64 years-old Female neuro deficit, acute stroke suspected COMPARISON: 04/26/24 TECHNIQUE: AP view of the chest FINDINGS: Postoperative findings within the spine are incidentally noted. There is no pneumothorax or pleural e ffusion. There is no consolidation or evidence for pulmonary edema. Linear left basilar density repre sents atelectasis. Cardiomediastinal silhouette is unremarkable. IMPRESSION: No acute cardiopulmonary findings. ACT 112: Negative or not required by law. The above report was generated using voice recognition software. It may contain grammatical, syntax o r spelling errors. Electronically signed by: Ashu Gusman M.D. 05/05/2024 5:10 PM
--- NOTE | 2024-05-05 18:44 | Magnetic Resonance Report ---
MR brain wo con HISTORY: 64 years-old Female acute stroke symptoms acute strokelike symptoms COMPARISON: Head CT of same day, brain MRI 04/27/2024 TECHNIQUE: Multiplanar multisequence MRI of the brain was obtained without IV contrast. FINDINGS: The previously noted punctate focus of restricted diffusion in involving the left subinsular distribu tion is not visualized on today's study. No restricted diffusion identified. Midline structures are u nremarkable. Cerebral venous sinuses and major arterial flow voids appear patent. Skull, orbits and soft tissues a re unremarkable. No acute intracranial hemorrhage, midline shift, abnormal extra-axial collection, hy drocephalus or intra-axial mass. Involutional changes with minimal T2/FLAIR hyperintense foci are not ed within the white matter suggestive of chronic microvascular ischemic disease. IMPRESSION: 1. No acute intracranial abnormality identified. 2. Previously noted punctate left subinsular lacunar infarct is not visualized on today's study. 3. Involutional changes with suggestion of mild chronic microvascular ischemic disease. ACT 112: Negative or not required by law. The above report was generated using voice recognition software. It may contain grammatical, syntax o r spelling errors. Electronically signed by: Ashu Gusman M.D. 05/05/2024 6:41 PM
[2024-05-05] MEDS: ACETAMINOPHEN 325 MG TAB PO STA (19:11)
[2024-05-05] MEDS: SODIUM CHLORIDE 0.9% 1,000 ML IV SCH (19:13)
[2024-05-05] MEDS ORDERED: oxyCODONE HCL IR 5 MG TAB (IMMEDIATE RELEASE) PO PRN (22:53)
[2024-05-05] MEDS ORDERED: ONDANSETRON INJ 2 MG/ML 2 ML VIAL IV PRN (22:53)
[2024-05-05] MEDS ORDERED: PHARMACIST DISCHARGE MED REC CONSULT PRN (22:53)
[2024-05-05] MEDS ORDERED: FLUoxetine HCL 20 MG CAP PO SCH (22:53)
[2024-05-05] MEDS ORDERED: traZODone HCL 50 MG TAB PO PRN (22:53)
[2024-05-05] MEDS ORDERED: diazePAM 5 MG TABLET PO PRN (22:53)
[2024-05-05] MEDS: SODIUM CHLORIDE 1 GM TABLET PO SCH (23:46)
[2024-05-05] MEDS: carvediloL 3.125 MG TAB PO SCH (23:46)
[2024-05-05] MEDS: busPIRone 15 MG TAB PO SCH (23:46)
[2024-05-06] MEDS: ACETAMINOPHEN 325 MG TAB PO PRN (06:17)
--- NOTE | 2024-05-06 06:46 | Electrocardiogram Report ---
Test Reason : Blood Pressure : */* mmHG Vent. Rate : 67 BPM Atrial Rate : 67 BPM P-R Int : 198 ms QRS Dur : 92 ms QT Int : 488 ms P-R-T Axes : 57 -19 30 degrees QTcB Int : 515 ms Normal sinus rhythm Low voltage QRS Prolonged QT Abnormal ECG When compared with ECG of 26-Apr-2024 11:29, No significant change was found Confirmed by Johnny Santiago ([id number]) on 05/06/2024 6:46:13 AM Referred By: Swetha Prakash Confirmed By: Johnny Santiago
[2024-05-06 07:29] LABS: Appearance Urine Clear (Clear); Bilirubin Urine Negative (Negative); Blood Urine Negative (Negative); Color Urine Yellow; Glucose Urine UA Negative (Negative); Ketones Urine Trace (Negative); Leukocyte Esterase Urine Negative (Negative); Nitrite Urine Negative (Negative); Protein Urine Negative (Negative); Specific Gravity Urine 1.031 (1.000-1.030); Urobilinogen Urine Negative (Negative)
--- NOTE | 2024-05-06 08:35 | Hospitalist Progress Note ---
Date of Service May 06, 2024 Assessment & Plan (1) Stroke-like symptoms: Plan: - likely secondary to migraine - patient with recent acute lacunar infarct on left putamen area found on MRI during previous admission (04/26-04/30) - not seen on prior CT studies during previous admission - started on baby aspirin and atorvastatin 40mg; patient not a candidate for DAPT due to chronic thrombocytopenia - was d/c with home PT services - Patient presents with dizziness, left leg weakness, headache, and difficulty finding words since 1350 on 05/05 - CT head and CTA head negative for acute infarct on admission - Neck CTA showed 40% stenosis of right proximal artery, consistent with previous CTA. Along with dominant right vertebral artery and diminutive left vertebral artery. - Recent echo 03/25/24 showed EF 60-65%, no regional wall abnormalities. - telestroke recommended MRI and continue to monitor. Patient is not a candidate or TNK due to recent CVA. - MRI negative for acute changes - A1c 4.7% on 04/28/24 - continue home ASA and statin - Q4H neuro checks, telemetry monitoring - neurology consulted - no signs of acute CVA, imaging negative - symptoms likely secondary to migraine - consider prednisone burst, antiemetics prn, fluid/hydration, improving stress/anxiety (2) Weakness: Plan: - Chronic since July 2023 - Follows with rheumatology, hepatology, heme/onc, and neurology outpatient due to ongoing weakness and fatigue - Bone marrow biopsy to be taken tomorrow by heme/onc outpt due to ongoing leukopenia/thrombocytopenia, *Pancytopenia; will need to reschedule out pt upon discharge - B12 04/21/24 WNL. Ammonia WNL 04/27. TSH mildly elevated 4.9, free T4 WNL on 04/26. - Recent thiamine elevated at 147 - Tick borne panel in 04/2023 negative. - magnesium stable (3) NEREYDA (acute kidney injury): Plan: - resolved - likely secondary to fluid restriction - Cr 1.24, Bun 8.9 on admission - patient clinically dry on admission exam, gentle fluid resuscitation with NSS - continue to monitor renal function with daily BMP (4) Chronic hyponatremia: Plan: - continue home sodium chloride - Na+ baseline on admission - on 1500 mL fluid restricted diet out pt, will discontinue - clinically appears dry on exam, with worsening of renal function - continue home sodium chloride tablet - continue to monitor on daily BMP Plan VTE ppx: SCDs - patient with chronic thrombocytopenia - will withhold pharmacologic management Diet: regular Code status: Full code Chronic stable diagnoses: Depression - continue home buspirone and fluoxetine, diazepam and trazodone prn Gerd - continue omeprazole leukocytopenia - chronic, to have bone marrow biopsy out pt Admission and Anticipated Discharge Date Admission Date: May 05, 2024 Review of Systems Review of Systems: See HPI Physical Exam Physical Exam: The patient is awake, alert and oriented 3, well developed and well nourished, normocephalic and atraumatic, in no acute distress. Non-toxic appearing. HEENT- PEERL, EOMI, mucous membranes dry. Hearing grossly intact. Heart-normal S1 and S2. No murmurs, rubs or gallops. Lungs-clear bilaterally, no respiratory distress, no accessory muscle use. Abdomen-normal bowel sounds and soft. No ascites noted. Non-tender. Extremities- no clubbing, cyanosis, or edema. Neuro - Cranial nerves 2-12 intact. Left sided temporal region sensation decreased. Sensation equal in bilateral upper and lower extremities. Strength 5/5 in upper extremities. Strength 3/5 on lower extremities. Psychiatric-normal affect. Results & Data Results & Data Vital Signs (Past 12 Hours) Vital Signs Temp Pulse Pulse Resp BP BP Pulse Ox 05/06/24 07:12 36.7 C 66 18 130/82 96 05/06/24 06:17 36.8 C 68 16 135/84 97 05/06/24 03:22 36.8 C 72 16 131/81 95 05/05/24 22:54 36.5 C 66 18 154/83 H 99 05/05/24 22:50 69 05/05/24 21:03 61 17 96 05/05/24 21:01 133/50 L 05/05/24 21:01 133/50 L 05/05/24 20:45 62 13 98 O2 Del Method 05/06/24 07:12 Room Air 05/06/24 06:17 Room Air 05/06/24 03:22 Room Air 05/05/24 22:54 Room Air 05/05/24 22:50 05/05/24 21:03 05/05/24 21:01 05/05/24 21:01 05/05/24 20:45 PG Care Time/CCT Total # of Minutes Spent Total Time Spent with Patient: Total time spent is greater than 50% in coordination of care (as documented) at patient's floor/unit and/or counseling patient: Coding Diagnoses Stroke-like symptoms R29.90 Weakness R53.1 NEREYDA (acute kidney injury) N17.9 Chronic hyponatremia E87.1
[2024-05-06] MEDS: ASPIRIN 81 MG ECTAB PO SCH (08:59)
[2024-05-06] MEDS: ATORVASTATIN 40 MG TAB PO SCH (08:59)
[2024-05-06] MEDS: CALCIUM 600MG + VIT D 400 IU TAB PO SCH (09:00)
[2024-05-06] MEDS: PANTOprazole 40 MG TAB PO SCH (09:00)
[2024-05-06] MEDS: FLUoxetine HCL 20 MG CAP PO SCH (09:00)
[2024-05-06 09:11] LABS: Hematocrit (blood only) 35.3 % (37.0-47.0); Hemoglobin 11.7 g/dl (12.0-16.0); Mean Corpuscular Hemoglobin 33.3 pg (25.0-34.0); Mean Corpuscular Hgb Conc 33.1 g/dL (32.0-36.0); Mean Corpuscular Volume 100.6 fL (80.0-100.0); Mean Platelet Volume 8.8 fL (9.4-12.4); Platelet Count 103 K/uL (130-400); RDW Coefficient of Variation 12.9 % (11.5-14.5); RDW Standard Deviation 48.1 fL (36.4-46.3); Red Blood Count 3.51 M/uL (4.20-5.40); White Blood Count 2.36 K/ul (4.8-10.8)
[2024-05-06 09:27] LABS: BUN Creatinine Ratio 7.8 (10-20); Calcium 8.5 mg/dl (8.6-10.3); Creatinine Clr Calc Pharmacy 54.4 ml/min; Est GFR (African American) 66.8 ml/min; Est GFR (Non-African American) 57.7 ml/min; Potassium 4.6 mmol/L (3.5-5.1)
--- NOTE | 2024-05-06 09:55 | Neurology Consultation ---
Date of Consultation May 06, 2024 Assessment & Plan (1) Headache: History of Present Illness Attending Physician: Trip Diana MD History of Present Illness pt this morning feeling much better. complaining of "severe headache" frontal but she is talking comfortably and making good eye contacts and clinically definitely not in distress. mri brain negative. I saw pt just last week for sma ll ischemic stroke in putamen. chart reviewed. admission HPI: Patient is a 64-year-old female with a past medical history of TIA on 04/28/24, generalized weakness, hyponatremia, spinal stenosis, alcoholism, depression, GERD, hepatitis C, leukopenia/thrombocytopenia, alcohol induced cardiomyopathy, pulmonary hypertension, chronic pancreatitis, liver cirrhosis, migraines, osteoporosis, and tricuspid regurgitation. Patient presents today with dizziness, headache, difficulty finding words, and left leg weakness that began around 1350 today. Her symptoms are still present and unchanged since t hey began. She also complains of blurry vision And tingling of her feet about 20 minutes ago. Patient has been nauseous since this morning. She stated that her dizziness is more so like lightheadedness and not like the room is spinning. Although patient states that her dizziness has been ongoing for few months. Patient was recently hospitalized 04/26- 04/30 for weakness and acute lacunar infarct was found on MRI. Patient has been asymptomatic since discharge been taking her new home medications of aspirin and statin. Her diarrhea from her previous admission has since resolved. Her last episode of diarrhea was shortly after arriving home on previous discharge. Patient denies rhinorrhea, sore throat, cough, sputum production, dyspnea, dyspnea on exertion, chest pain, vomiting, diarrhea, constipation, dysuria, hematuria, edema, and numbness. She has chronic abdominal pain due to chronic pancreatitis. She has chronic low back and knee pain. Patient has been fluid restricting at home due to chronic hyponatremia. She takes this sodium chloride daily. She took all of her home medications this morning. She wishes to be full code at this time and has a written living will and power of compliance attorney. Patient's at bedside on exam. Patient's bone marrow biopsy as scheduled for tomorrow. She does not smoke, drink alcohol, or use illicit drugs. Allergies Allergy/AdvReac Type Severity Reaction Status Date / Time aripiprazole AdvReac Severe seizure Verified 05/05/24 21:04 activity per [facility] EMR gabapentin AdvReac Severe Confusion Verified 05/05/24 21:04 acetaminophen AdvReac Unknown per [facility] Verified 05/05/24 21:04 EMR, to be avoided given cirrhosis ibuprofen AdvReac Unknown per [facility] Verified 05/05/24 21:04 EMR to be avoided given cirrhosis Home Medications Medication Instructions Recorded Confirmed Type rizatriptan 10 mg disintegrating 10 mg PO DIRECTED PRN Migraine 11/21/21 05/05/24 History tablet Headache calcium carbonate 600 mg-vitamin 2 cap PO QAM 08/02/22 05/05/24 History D3 12.5 mcg (500 unit) capsule (Calcium 600 with Vitamin D3) alendronate 35 mg tablet 35 mg PO WK 04/20/23 05/05/24 History buspirone 30 mg tablet 30 mg PO BID 04/20/23 05/05/24 History diazepam 5 mg tablet 5 mg PO BID PRN Anxiety 04/20/23 05/05/24 History multivitamin-ferrous 1 tab PO QAM 04/20/23 05/05/24 History fumarate-folic acid 18 mg-400 mcg tablet (Centrum Women) omeprazole 40 mg capsule,delayed 40 mg PO DAILY gerd 04/20/23 05/05/24 History release losartan 25 mg tablet 25 mg PO BID 07/31/23 05/05/24 History nystatin 100,000 unit/gram topical 1 applic topical UD PRN Skin 07/31/23 05/05/24 History cream Irritation clotrimazole 2 % vaginal cream 1 appful topical UD PRN Vaginal 04/23/24 05/05/24 History Dryness carvedilol 3.125 mg tablet 3.125 mg PO BID 04/26/24 05/05/24 History fluoxetine 20 mg capsule See Rx Instructions .Route .COMPLEX 04/26/24 05/05/24 History fluoxetine 40 mg capsule See Rx Instructions .Route .COMPLEX 04/26/24 05/05/24 History oxycodone 5 mg tablet 5 mg PO Q6H PRN Pain 04/26/24 05/05/24 History trazodone 150 mg tablet 225 mg PO HS PRN Insomnia 04/26/24 05/05/24 History aspirin 81 mg tablet,delayed 81 mg PO DAILY #30 tabs 04/30/24 05/05/24 Rx release atorvastatin 40 mg tablet 40 mg PO QAM #30 tabs 04/30/24 05/05/24 Rx thiamine HCl (vitamin B1) 100 mg 100 mg PO QAM #30 tabs 04/30/24 05/05/24 Rx tablet sodium chloride 1,000 mg soluble 1,000 mg PO BID 05/05/24 05/05/24 History tablet Patient History Medical History Acute UTI Bradycardia Acute dehydration Altered mental status Hypotension Lumbar stenosis 03/26/24 MRI showed significant stenosis lumbar spine; pt was originally to have lumbar decompression/fusion but put on hold pending evaluation for pancytopenia History of recent hospitalization [facility] 03/26/24-03/29/24: dx: hyponatremia, weakness, neutropenia, LBP. pt started on fluid restriction and sodium tabs. heme recommended bone marrow bx for neutropenia. ortho/spine consulted for lumbar spinal stenosis but operative mgmt deferred 2/2 comorbidities and pancytopenia. 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 These have been stopped... 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 These have been stopped" Spinal stenosis GERD (gastroesophageal reflux disease) controlled, stable per pt Difficult airway for intubation limited cervical spine extension; s/p cervical spinal fusion Lumbar facet joint syndrome Lumbar spondylosis Hx of falling last fall over 1 year ago per patient Hx of gastritis patient denies recent flare Hx of encephalopathy no issues since stopping ETOH use 2021 COPD (chronic obstructive pulmonary disease) former smoker History of alcoholism (2021) quit 2021 (drank 6 beers/day) Hx of tinnitus Hx of migraines Pulmonary hypertension Hx of per 09/2019 ECHO: Moderate pulmonary HTN: T[place]anie PASP 51mmhg, assuming RAP of 3mmhg; per 03/2024 ECHO: RVSP 31mmHg Seasonal allergies Non-ischemic cardiomyopathy alcoholic CM; EF 35-40% in 2018, 60-65% in 2020 Hx of chronic pancreatitis History of anemia Chronic pain disorder back Positive ROSANGELA (antinuclear antibody) Stress incontinence Chronic cough Follows with [facility] pulm - pt. reports due to pollen and states has nearly resolved in recent months HTN (hypertension) controlled, stable per pt Cirrhosis Hep C induced; pt recently dx with recurrence of Hep C and awaiting tx with hepatology History of subdural hematoma (2010) 2010 Osteoarthritis History of seizure (2010) Following subdural hematoma 2010 from fall. Pt follows with [facility] Neuro; per 01/01/24 Neuro note, pt had 'episode of speech and movement arrest in the context of a histyr of posttraumatic seizures' 04/2023. Had normal EEG. Pt advised by neuro to start keppra but pt refuses. Surgical History Hx of blepharoplasty (01/2024) History of craniotomy (2010) Due to subdural hematoma from fall Hx of hysterectomy Hx of cholecystectomy History of carpal tunnel release right Hx of arthroscopy of shoulder right Hx of arthroscopy of left knee S/P cervical spinal fusion C4-C7 per imaging review History of onel hole surgery (2010) lead to craniotomy History of esophagogastroduodenoscopy (EGD) History of colonoscopy Family History Mother Hypertension Other No family history of adverse response to anesthesia Social History Smoking Status: Former smoker Tobacco Type: Cigarettes Age Started Using Tobacco: 18; Age Quit Using Tobacco: 30; packs per day: 1; Cigarettes Per Day: 1 pack a day; Second Hand Exposure: No; Do You Dip or Chew Tobacco: No; Tobacco Cessation Education Requested by Patient: No Hx Alcohol Use: Yes Alcohol type: beer Alcohol Intake Frequency Comment: 5 beers/day Hx Substance Use: No Preferred Language: Bulgarian Communication Ability: Effective [employer]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 current occupational status: unemployed How many Children do You have: 0 Other Information That Helps Us Care for You: No Feels Safe at Home: Yes Safety Concerns: Feels Safe At This Time Assistive Devices: Hearing Aid - Bilateral, Walker and Wheelchair Exam (Neuro) Physical Exam: HEENT: normocephalic grossly Neuro: Mental: AOx4, fluent speech, normal comprehension, no apraxia, no L/R confusion, no neglect CN: PERRL, Full EOM, symmetric face, midline T/U/P, Motor: No abnormal movements, normal tone, 5/5 t/o bilaterally Sens: intact to touch b/l grossly Coord: intact DTR: 2+ sym b/l Impression: 64 yo female with overall picture like migraine syndrome in setting of maybe anxiety/stress. Does not appears to be stroke related. mri brain negative. her symptoms maybe exaggerated. Recommendations: no further stroke work up needed. consider trial of prednisone burst (60mg daily for 2 days and 40mg daily x 2 days, 20mg daily for 2 days and stop). can use antiemetics for prn headache. plenty of fluid/hydration improve stress/anxiety (may consider psych evaluation). not much to add from neurology call again if new question. Follow up in 6 months. Chart reviewed I have spent more than 50% educating patient about potential diagnosis and neurological evaluation and coordinating care with patient's treatment team. Total time spent (including chart review and coordination of care): 45 min (this includes chart review). Results & Data Vital Signs (Past 12 Hours) Vital Signs Temp Pulse Pulse Resp BP Pulse Ox O2 Del Method 05/06/24 07:12 36.7 C 66 18 130/82 96 Room Air 05/06/24 06:17 36.8 C 68 16 135/84 97 Room Air 05/06/24 03:22 36.8 C 72 16 131/81 95 Room Air 05/05/24 22:54 36.5 C 66 18 154/83 H 99 Room Air 05/05/24 22:50 69 PG Care Time/CCT Total # of Minutes Spent Total Time Spent with Patient: Total time spent is greater than 50% in coordination of care (as documented) at patient's floor/unit and/or counseling patient: Coding Level of Care Code 89394 IN/OBS CONSULT LVL 3,45M Diagnoses Other headache syndrome G44.89 Headache type: other headache syndrome (1) Headache Headache type: other headache syndrome Qualified Code(s): G44.89 - Other headache syndrome
[2024-05-06 11:01] VITALS: BP 128/80; RESP 20; TEMP 99; O2SAT 95
--- NOTE | 2024-05-06 11:15 | Discharge Summary ---
Discharge Summary Date of Service May 06, 2024 Principal Dx & Hospital Course #1 = Principal Diagnosis (1) Stroke-like symptoms: - likely secondary to migraine - patient with recent acute lacunar infarct on left putamen area found on MRI during previous admission (04/26-04/30) - not seen on prior CT studies during previous admission - started on baby aspirin and atorvastatin 40mg; patient not a candidate for DAPT due to chronic thrombocytopenia - was d/c with home PT services - Patient presents with dizziness, left leg weakness, headache, and difficulty finding words since 1350 on 05/05 - CT head and CTA head negative for acute infarct on admission - Neck CTA showed 40% stenosis of right proximal artery, consistent with previous CTA. Along with dominant right vertebral artery and diminutive left vertebral artery. - Recent echo 03/25/24 showed EF 60-65%, no regional wall abnormalities. - telestroke recommended MRI and continue to monitor. Patient is not a candidate or TNK due to recent CVA. - MRI negative for acute changes - A1c 4.7% on 04/28/24 - continue home ASA and statin - neurology consulted - no signs of acute CVA, imaging negative - symptoms likely secondary to migraine - consider prednisone burst, antiemetics prn, fluid/hydration, improving stress/anxiety - will try home triptan migraine relief medication with discharged 05/06 on home prednisone burst (2) Weakness: - Chronic since July 2023 - Follows with rheumatology, hepatology, heme/onc, and neurology outpatient due to ongoing weakness and fatigue - Bone marrow biopsy to be taken tomorrow by heme/onc outpt due to ongoing leukopenia/thrombocytopenia, *Pancytopenia; will need to reschedule out pt upon discharge - B12 04/21/24 WNL. Ammonia WNL 04/27. TSH mildly elevated 4.9, free T4 WNL on 04/26. - Recent thiamine elevated at 147 - Tick borne panel in 04/2023 negative. - magnesium stable (3) NEREYDA (acute kidney injury): - resolved - likely secondary to fluid restriction - Cr 1.24, Bun 8.9 on admission - patient clinically dry on admission exam, gentle fluid resuscitation with NSS (4) Chronic hyponatremia: - Na+ baseline on admission - on 1500 mL fluid restricted diet out pt, discontinued - clinically appeared dry on exam, with worsening of renal function on admission - continue home sodium chloride tablet Plan VTE ppx: SCDs - patient with chronic thrombocytopenia - will withhold pharmacologic management Diet: regular Code status: Full code Chronic stable diagnoses: Depression - continue home buspirone and fluoxetine, diazepam and trazodone prn Gerd - continue omeprazole Pancytopenia - chronic, to have bone marrow biopsy out pt Discharge 05/06/24 with home PT services. Notes For Next Care Provider Medication Changes From Visit 6 day prednisone burst Admission HPI Per Admitting Provider Patient is a 64-year-old female with a past medical history of TIA on 04/28/24, generalized weakness, hyponatremia, spinal stenosis, alcoholism, depression, GERD, hepatitis C, leukopenia/thrombocytopenia, alcohol induced cardiomyopathy, pulmonary hypertension, chronic pancreatitis, liver cirrhosis, migraines, osteoporosis, and tricuspid regurgitation. Patient presents today with dizziness, headache, difficulty finding words, and left leg weakness that began around 1350 today. Her symptoms are still present and unchanged since they began. She also complains of blurry vision And tingling of her feet about 20 minutes ago. Patient has been nauseous since this morning. She stated that her dizziness is more so like lightheadedness and not like the room is spinning. Although patient states that her dizziness has been ongoing for few months. Patient was recently hospitalized 04/26- 04/30 for weakness and acute lacunar infarct was found on MRI. Patient has been asymptomatic since discharge been taking her new home medications of aspirin and statin. Her diarrhea from her previous admission has since resolved. Her last episode of diarrhea was shortly after arriving home on previous discharge. Patient denies rhinorrhea, sore throat, cough, sputum production, dyspnea, dyspnea on exertion, chest pain, vomiting, diarrhea, constipation, dysuria, hematuria, edema, and numbness. She has chronic abdominal pain due to chronic pancreatitis. She has chronic low back and knee pain. Patient has been fluid restricting at home due to chronic hyponatremia. She takes this sodium chloride daily. She took all of her home medications this morning. She wishes to be full code at this time and has a written living will and power of assistant county attorney. Patient's at bedside on exam. Patient's bone marrow biopsy as scheduled for tomorrow. She does not smoke, drink alcohol, or use illicit drugs. Admission Exam Per Admitting Provider The patient is awake, alert and oriented 3, well developed and well nourished, normocephalic and atraumatic, in no acute distress. Non-toxic appearing. HEENT- PEERL, EOMI, mucous membranes dry. Hearing grossly intact. Heart-normal S1 and S2. No murmurs, rubs or gallops. Lungs-clear bilaterally, no respiratory distress, no accessory muscle use. Abdomen-normal bowel sounds and soft. No ascites noted. Non-tender. Extremities- no clubbing, cyanosis, or edema. Neuro - Cranial nerves 2-12 intact. Left sided temporal region sensation decreased. Sensation equal in bilateral upper and lower extremities. Strength 5/5 in upper extremities. Strength 3/5 on lower extremities. Psychiatric-normal affect. Discharge Exam The patient is awake, alert and oriented 3, well developed and well nourished, normocephalic and atraumatic, in no acute distress. Non-toxic appearing. HEENT- PEERL, EOMI, mucous membranes dry. Hearing grossly intact. Heart-normal S1 and S2. No murmurs, rubs or gallops. Lungs-clear bilaterally, no respiratory distress, no accessory muscle use. Abdomen-normal bowel sounds and soft. No ascites noted. Non-tender. Extremities- no clubbing, cyanosis, or edema. Neuro - Cranial nerves 2-12 intact. Sensation equal in bilateral upper and lower extremities. Strength 5/5 in upper extremities. Strength 5/5 on lower extremities. Psychiatric-normal affect. Discharge Plan Discharge Items Patient Disposition: Home - Home Health Services Reason For Visit: STROKE LIKE SYMPTOMS Discharge Diagnosis: 1. Migraine 2. Previous history of CVA 3. weakness 4. chronic hyponatermia Condition on Discharge: Good Activity: Resume your previous activity Non-emergency contact: Primary Care Provider and Neurologist Call non-emergency contact if: you have any medication questions and your symptoms worsen Follow-up/Referrals: Swetha Newberry DO [Primary Care Provider] - 05/10/24 12:45 pm Diet: Regular Addtl Attending Provider Instructions: You were seen in the hospital for a work up for a potential stroke. You CT scans and MRI were negative for any acute findings. Neurology saw you today and concluded that you symptoms were likely due to a migraine. He recommended a 6 day prednisone (steroid) burst that I have sent to your pharmacy. You have a prescribed migraine relief medication called Rizatriptan that you can use in the future. You have been given one dose in the hospital this morning so you are only able to take 1 more within the next 24 hours. Make your you drink plenty of fluids to stay hydrated. You are to continue the baby aspirin and statin that were prescribed during your previous hospitalization as they will help prevent another stroke. Case management set up for you to continue with home PT services. Pending Studies at Discharge: No Stand-Alone Forms: My [facility] Medications and DC Order Prescriptions: New prednisone 20 mg tablet 20 mg PO DAILY 6 Days Qty: 6 0RF Rx Instructions: You are to taper the prescription over the next 6 days as follows: - 60 mg (3 tablets) daily x 2 days - 40 mg (2 tablets) daily x 2 days - 20 mg (1 tablet) daily x 2 days - stop Continued calcium carbonate-vitamin D3 [Calcium 600 with Vitamin D3] 600 mg-12.5 mcg (500 unit) capsule 2 cap PO QAM Hold Instructions: SURGERY nystatin 100,000 unit/gram cream 1 applic topical UD PRN (Reason: Skin Irritation) losartan 25 mg tablet 25 mg PO BID rizatriptan 10 mg tablet,disintegrating 10 mg PO DIRECTED MDD 3 DOSES/24 HOURS PRN (Reason: Migraine Headache) Rx Instructions: TAKE 10 MG AT ONSET OF YEPEZ, THEN REPEAT IN 2 HOURS IF NEEDED. MAX 3 DOSES/24 HOURS. omeprazole 40 mg capsule,delayed release(DR/EC) 40 mg PO DAILY alendronate 35 mg tablet 35 mg PO WK Rx Instructions: Pt usually takes on Friday mornings, but forgot to take it on 04/25/24 so she took it on the morning of 04/26/24 buspirone 30 mg tablet 30 mg PO BID diazepam 5 mg tablet 5 mg PO BID PRN (Reason: Anxiety) Centrum Women 18-400 mg-mcg Tablet 1 tab PO QAM Hold Instructions: SURGERY clotrimazole 2 % cream 1 appful topical UD PRN (Reason: Vaginal Dryness) sodium chloride 1,000 mg tablet,soluble 1,000 mg PO BID fluoxetine 40 mg capsule See Rx Instructions .ROUTE .COMPLEX Rx Instructions: Take 40mg w/ 20mg every morning to equal 60mg carvedilol 3.125 mg tablet 3.125 mg PO BID trazodone 150 mg tablet 225 mg PO HS PRN (Reason: Insomnia) fluoxetine 20 mg capsule See Rx Instructions .ROUTE .COMPLEX Rx Instructions: Take 20mg w/ 40mg every morning to equal 60mg oxycodone 5 mg tablet 5 mg PO Q6H PRN (Reason: Pain) atorvastatin 40 mg Tablet 40 mg PO QAM Qty: 30 0RF aspirin 81 mg Tablet,Delayed Release (Dr/Ec) 81 mg PO DAILY Qty: 30 0RF Discontinued thiamine HCl (vitamin B1) 100 mg Tablet 100 mg PO QAM Qty: 30 0RF Discharge Orders: Discharge Order (Routine); Ordered 05/06/24 Ordered By: Leah Jones/Other Patient Handouts: Symptoms of Stroke, Self-Care for Headaches Admission Data Admit Date/Time: 05/05/24 17:32 Attending Provider: Trip Diana Admit Provider: Jose Prieto Primary Care Provider: Swetha Newberry Other Providers: Jose Prieto; Bryn Graham; Ganesh Garvey; Carmen Restrepo; Jany Barahona; Nadine Friedman; Richard Daly Other Interventions: Discharge Summary Assessment (RN) Last Done: 05/06/24 12:24 Hospital Stay Data Consultations 05/05/24 17:02 ED Decision to Admit Stat 05/05/24 22:53 Consult Neurology Routine Diagnostic Imagining Performed Chest X-Ray 05/05/24 15:02 XR chest 1V portable HISTORY: 64 years-old Female neuro deficit, acute stroke suspected COMPARISON: 04/26/24 TECHNIQUE: AP view of the chest FINDINGS: Postoperative findings within the spine are incidentally noted. There is no pneumothorax or pleural effusion. There is no consolidation or evidence for pulmonary edema. Linear left basilar density represents atelectasis. Cardiomediastinal silhouette is unremarkable. IMPRESSION: No acute cardiopulmonary findings. ACT 112: Negative or not required by law. The above report was generated using voice recognition software. It may contain grammatical, syntax or spelling errors. Electronically signed by: Ashu Gusman M.D. 05/05/2024 5:[address] 05/05/24 15:[address] DOSE: 547.75 mGy.cm HISTORY: Dizziness. neuro deficit, acute stroke suspected TECHNIQUE: Multiaxial CT images of the head were performed without the use of intravenous contrast. Automated exposure control was utilized for this study. A dose lowering technique was utilized adhering to the principles of ALARA. Comparison: Head CT 04/26/2024. Findings: The paranasal sinuses and mastoid air cells are clear. Prior right- sided craniotomy again noted. No calvarial fractures. There is no mass or acute intracranial hemorrhage identified. The punctate acute lacunar infarct within the left putamen seen on the recent MRI is not well evaluated by this modality. No definite acute infarct identified. White matter hypodensity is nonspecific but suggestive of microvascular ischemic change. The ventricles and sulci demonstrate mild age-related involutional changes. Impression: 1. No definite acute infarct or acute intracranial hemorrhage. 2. The punctate lacunar infarct seen within the left basal ganglia on the recent MRI is not well identified by this modality. ACT 112: Negative or not required by law. Electronically signed by: Charan Miles M.D. 05/05/2024 3:36 PM Head CTA 05/05/24 15:02 CT angio head w con CLINICAL HISTORY: 64 years-old Female with neuro deficit, acute stroke suspected. Acute stroke like symptoms COMPARISON STUDY: Head CT of same day, CT neck 04/27/2024, brain MRI 04/27/2024 TECHNIQUE: Following the IV administration of 117 cc of Optiray, CT angiogram of the brain was performed from the skull base to the vertex. Images are reviewed in the axial, sagittal, and coronal planes. 3-D MIPS images are created and assessed. IV contrast was administered without complication. All measurements were obtained according to NASCET criteria. A dose lowering technique was utilized adhering to the principles of ALARA. FINDINGS: CT ANGIOGRAM OF THE BRAIN: The imaged bilateral internal carotid arteries are patent. The bilateral anterior and middle cerebral arteries are also patent. The vertebrobasilar system and posterior cerebral arteries are widely patent. There is no aneurysm, high-grade stenosis, or proximal branch occlusion identified. Dural sinuses appear patent. Right-sided craniotomy changes redemonstrated. The vertebral and basilar arteries are hypoplastic. origin of the posterior cerebral arteries. The punctate infarcts in the left subinsular distribution seen on the prior brain MRI is not definitively seen. IMPRESSION: Unremarkable CTA of the head. ACT 112: Negative or not required by law. The above report was generated using voice recognition software. It may contain grammatical, syntax or spelling errors. Electronically signed by: Ashu Gusman M.D. 05/05/2024 4:34 PM Neck CTA 05/05/24 15:02 CT ANGIOGRAPHY OF THE NECK WITH CONTRAST CLINICAL HISTORY: neuro deficit, acute stroke suspected COMPARISON STUDY: CTA of the neck April 27, 2024. Technique: CT angiography of the carotid and vertebral arteries was obtained us ing Optiray and 3D reconstruction on an independent workstation. NASCET criteria was utilized. Automated exposure control was utilized for the study. A dose lowering technique was utilized adhering to the principles of ALARA. CT DOSE: 472.13 mGy.cm Findings: Visualized portions of the lung apices are unremarkable. There are no cervical spine fractures. Status post C4-C7 anterior discectomy and fusion. 40% stenosis of the proximal right internal carotid artery due to calcified atherosclerotic plaque is unchanged. There is moderate plaque within the left carotid bifurcation without stenosis. Right vertebral artery is dominant and patent. Left vertebral artery is diminutive on a congenital basis. There is mild plaque within the proximal left subclavian artery without stenosis. There is no dissection or aneurysm within the neck. IMPRESSION: 1. No change in 40% stenosis of the proximal right internal carotid artery due to calcified atherosclerotic plaque. 2. No additional stenoses within the major vessels of the neck. 3. Dominant, patent right vertebral artery. Diminutive left vertebral artery on a congenital basis. ACT 112: Negative or not required by law. Electronically signed by: Ion Azul M.D. 05/05/2024 4:30 PM Brain MRI 05/05/24 16:18 MR brain wo con HISTORY: 64 years-old Female acute stroke symptoms acute strokelike symptoms COMPARISON: Head CT of same day, brain MRI 04/27/2024 TECHNIQUE: Multiplanar multisequence MRI of the brain was obtained without IV contrast. FINDINGS: The previously noted punctate focus of restricted diffusion in involving the left subinsular distribution is not visualized on today's study. No restricted diffusion identified. Midline structures are unremarkable. Cerebral venous sinuses and major arterial flow voids appear patent. Skull, orbits and soft tissues are unremarkable. No acute intracranial hemorrhage, midline shift, abnormal extra-axial collection, hydrocephalus or intra-axial mass. Involutional changes with minimal T2/FLAIR hyperintense foci are noted within the white matter suggestive of chronic microvascular ischemic disease. IMPRESSION: 1. No acute intracranial abnormality identified. 2. Previously noted punctate left subinsular lacunar infarct is not visualized on today's study. 3. Involutional changes with suggestion of mild chronic microvascular ischemic disease. ACT 112: Negative or not required by law. The above report was generated using voice recognition software. It may contain grammatical, syntax or spelling errors. Electronically signed by: Ashu Gusman M.D. 05/05/2024 6:41 PM Discharge Instructions Given to Patient (Per Discharging Provider) You were seen in the hospital for a work up for a potential stroke. You CT scans and MRI were negative for any acute findings. Neurology saw you today and concluded that you symptoms were likely due to a migraine. He recommended a 6 day prednisone (steroid) burst that I have sent to your pharmacy. You have a prescribed migraine relief medication called Rizatriptan that you can use in the future. You have been given one dose in the hospital this morning so you are only able to take 1 more within the next 24 hours. Make your you drink plenty of fluids to stay hydrated. You are to continue the baby aspirin and statin that were prescribed during your previous hospitalization as they will help prevent another stroke. Case management set up for you to continue with home PT services. Supervising Physician Co-Signing Physician Notes Patient was seen and examined independently I discussed the case with Leah ESTRELLA I reviewed pertinent past medical social family history and also the plan of care and agree with the plan of care. Patient was in the angry mood and very contentious during my evaluation she says her symptoms have resolved but she just wanted to leave the hospital she was not pleased with her neurologic goal visit telling her she had an atypical migraine. She is nonfocal with her exam she was speaking fluently she is moving about the room setting off the bed alarm she refused her lunch Patient be discharged home to continue with the previous defined stroke medication regimen of aspirin atorvastatin and to take her usual home migraine medication. She is recommended follow-up with PCP and neurology It required greater than 30 minutes to prepare this patient for discharge. Any exceptions will be noted below Total Time Total Time Spent Total Time Spent (In Minutes): 45 Coding Level of Care Code None Diagnoses Stroke-like symptoms R29.90 Weakness R53.1 NEREYDA (acute kidney injury) N17.9 Chronic hyponatremia E87.1
--- NOTE | 2024-05-06 11:25 | Billing Data ---
Date of Service May 05, 2024 Coding Level of Care Code 08040 INT INP/OBS CARE
--- NOTE | 2024-05-06 11:51 | Communication Note ---
Date of Service: May 06, 2024 By CMS guidelines, a determination that the admission or continued stay is not medically necessary has been made by a member of the UR committee and a physician for this hospital stay, therefore a Code 44 will be completed and the Inpatient admission will be changed to outpatient.
[2024-05-06] MEDS: RIZATRIPTAN BENZOATE 10 MG TAB PO PRN (12:08)
[2024-05-06] MEDS ORDERED: STROKE PATIENT DISCHARGE STA (12:13)
[2024-05-06 12:16] VITALS: PULSE 66
--- NOTE | 2024-05-06 16:47 | Billing Data ---
Date of Service May 06, 2024 Coding Level of Care Code 50143 INP/OBS DISCH >30 MIN
== END 2024-05-06 13:06 | disposition home health service (06) ==
LOC: ED 14:29 → 2S 17:32 → INTOOBSV 17:32 → SUATTDRO 17:32 → 2S 22:26

== ENCOUNTER 2024-05-11 06:48 | Observation (INO) ==
[2024-05-11 07:31] LABS: iSTAT Creatinine 1.2 mg/dl (0.6-1.3); iSTAT Hemoglobin 11.9 g/dl (12.0-16.0); iSTAT Ionized Calcium 0.83 mmol/l (1.12-1.32)
[2024-05-11 07:32] LABS: Basophils # (auto) 0.01 K/uL (0.00-0.20); Basophils % (auto) 0.1 %; Eosinophils # (auto) 0.03 K/uL (0.00-0.50); Eosinophils % (auto) 0.4 %; Hematocrit (blood only) 34.3 % (37.0-47.0); Hemoglobin 12.1 g/dl (12.0-16.0); Immature Granulocytes # (auto) 0.05 K/uL (0.01-0.20); Immature Granulocytes % (auto) 0.7 %; Lymphocytes # (auto) 1.43 K/uL (1.20-3.40); Lymphocytes % (auto) 18.6 %; Mean Corpuscular Hemoglobin 33.5 pg (25.0-34.0); Mean Corpuscular Hgb Conc 35.3 g/dL (32.0-36.0); Mean Platelet Volume 8.5 fL (9.4-12.4); Monocytes # (auto) 0.82 K/uL (0.11-0.59); Monocytes % (auto) 10.7 %; Neutrophils # (auto) 5.35 K/uL (1.40-6.50); Neutrophils % (auto) 69.5 %; Platelet Count 152 K/uL (130-400); RDW Coefficient of Variation 12.7 % (11.5-14.5); RDW Standard Deviation 44.1 fL (36.4-46.3); Red Blood Count 3.61 M/uL (4.20-5.40); White Blood Count 7.69 K/ul (4.8-10.8)
[2024-05-11 07:49] LABS: Albumin Globulin Ratio 1.6 (0.9-2); Albumin Level 3.9 gm/dl (3.4-5.0); BUN Creatinine Ratio 11.2 (10-20); Bilirubin,Total 0.2 mg/dl (0.2-1.0); Calcium 8.1 mg/dl (8.6-10.3); Creatinine Clr Calc Pharmacy 48.1 ml/min; Est GFR (African American) 57.2 ml/min; Est GFR (Non-African American) 49.4 ml/min; Globulin 2.5 gm/dl (2.5-4.0); Magnesium 1.4 mg/dl (1.7-2.4); Phosphorus 3.7 mg/dl (2.5-4.9); Potassium 3.1 mmol/L (3.5-5.1); Total Protein 6.4 gm/dl (6.0-8.3)
[2024-05-11] MEDS: SODIUM CHLORIDE 0.9% 1,000 ML IV ONE (07:50)
--- NOTE | 2024-05-11 07:53 | Emergency Department Note ---
Impression & Plan Hypokalemia, Generalized weakness, Recurrent falls, Hypomagnesemia ED Provider Note NAME: JUHI WHITFIELD AGE: 64 SEX: F : 1960 ARRIVES VIA: Ambulance INFORMANT: Patient ED PROVIDER(S): Keenan Churchill MD CHIEF COMPLAINT: Generalized weakness, recurrent falls. PLAN: Disposition: Admit MEDICAL DECISION MAKING: The patient is a 64-year-old woman with a past medical history of prior remote alcohol dependence with last use 2 years ago, history of CVA, lumbar stenosis, chronic pancreatitis, nonischemic cardiomyopathy, seizure disorder who presents to the emergency department via EMS from home for evaluation of recurrent falls since her recent discharge from admission on 05/05-05/06 for weakness which was attributed to migraine but in the setting of having CVA diagnosed on admission from 04/26-04/30. Per records the patient had MRI of the brain performed which demonstrated acute lacunar infarct of the left putamen. She is currently on aspirin and statin. Per the patient's who are at the bedside the patient has been continually weak since her discharge with recurrent falls. They are uncertain of any head strike. They deny fevers, chills, cough, congestion. The patient is a poor historian. On evaluation the patient is fatigued appearing but no distress, afebrile with stable vital signs. She appears clinically dry. She exhibits generalized weakness with equivocal increased right-sided weakness which patient reports is her baseline. EKG normal sinus rhythm, 77 bpm, no overt ST elevation however ST and T wave abnormalities that are new from prior likely secondary to electrolyte abnormalities on subsequent blood work. CXR negative for acute cardiopulmonary process per my personal preliminary review/interpretation. WBC, hemoglobin and platelets within normal limits. INR is 1.5, similar to prior range of values and given normal LFTs and to be related to vitamin K deficiency. Chemistry without metabolic acidosis. Potassium 3.1 and magnesium 1.4 with IV repletion initiated. Suspect these electrolyte abnormalities likely explain patient's ST abnormalities. High-sensitivity troponin 4.2, within normal limits. BNP is within normal limits. UA without evidence of infection. Medical alcohol is undetectable. CT of the head, C-spine, chest, abdomen pelvis were performed were negative for acute traumatic injuries or acute process otherwise. Appreciate case management assistance/consultation who were aware of possibility of placement directly to [facility]. I did review this option with the patient and her and they did agree with this plan if possible. Unfortunately however bed is no longer available tonight but may be available tomorrow. Thus, we will proceed with admission at this time given generalized weakness and electrolyte abnormalities. Case was d/[place]. [place] [facility] [place] who will evaluate the patient for admission. Further management per admitting team. Triage Nursing notes reviewed and agree them. Prior/external medical records reviewed Vital Signs: reviewed Differential diagnosis: Infection, dehydration, metabolic abnormality, hypo/hyperglycemia, electrolyte disturbance, anemia, hypoxia, cardiac sources, intracerebral event, toxicologic, neurologic, as well as other pathologies. ER treatment provided: See below. Diagnostics interpreted by me: ECG: EKG normal sinus rhythm, 77 bpm, no overt ST elevation however ST and T wave abnormalities new from prior, QTc 477, QRS 70. Cardiac Monitoring: An order for continuous cardiac monitoring was placed and demonstrated normal sinus rhythm, 77 bpm, no ectopy. Laboratory studies: See below Imaging studies: See below Consultation(s): Case was d/[place] Dr. Pri[place] [facility] [place] who will evaluate the patient for admission. HPI: The patient is a 64-year-old woman with a past medical history of prior remote alcohol dependence with last use 2 years ago, history of CVA, lumbar stenosis, chronic pancreatitis, nonischemic cardiomyopathy, seizure disorder who presents to the emergency department via EMS from home for evaluation of recurrent falls since her recent discharge from admission on 05/05-05/06 for weakness which was attributed to migraine but in the setting of having CVA diagnosed on admission from 04/26-04/30. Per records the patient had MRI of the brain performed which demonstrated acute lacunar infarct of the left putamen. She is currently on aspirin and statin. Per the patient's who are at the bedside the patient has been continually weak since her discharge with recurrent falls. They are uncertain of any head strike. They deny fevers, chills, cough, congestion. The patient is a poor historian. ROS: See above HPI for pertinent positives & negatives. A total of 10 systems reviewed and were otherwise negative. VITALS:See Below PHYSICAL EXAMINATION: GENERAL: Awake, alert, chronically ill-appearing, in no distress HENT: Normocephalic, atraumatic. Oropharynx with dry mucous membranes and otherwise unremarkable. EYES: Normal conjunctiva. Sclera non-icteric. EOMI. No nystamgus. PEARRL. NECK: Supple. No nuchal rigidity. FROM. No JVD. RESPIRATORY: Clear to auscultation. CARDIAC: Regular rate, normal rhythm. Extremities warm and well perfused. Pulses equal. ABDOMEN: Soft, non-distended. No tenderness to palpation. No rebound or guarding. No masses. MUSCULOSKELETAL: Chest examination reveals no tenderness. The back is symmetrical on inspection without obvious abnormality. There is no CVA tenderness to palpation. No joint edema. LOWER EXTREMITIES: Calves are equal size bilaterally and non-tender. No edema. No discoloration. NEURO: Alert and oriented to self and place, confused to situation. Generalized weakness with 3/5 strength in all extremities with equivocal increased weakness of right upper and right lower extremity. SKIN: No rash or jaundice noted. Keenan Churchill MD Past Med/Surg History Problem List (Updated 05/11/24 @ 19:51 by Keenan Churchill MD) Hypomagnesemia (Acute) Recurrent falls (Acute) Generalized weakness (Acute) Hypokalemia (Acute) History of CVA (cerebrovascular accident) Hypokalemia Recurrent falls Acute ischemic stroke Diarrhea Weakness (Acute) Vitamin D deficiency Neutropenia Hyponatremia with decreased serum osmolality Generalized weakness (Acute) Spinal stenosis of lumbar region Incontinence (Chronic) Myofascial pain Dermatochalasis of both upper eyelids 10/28/23 Shoulder pain Status post arthroscopy of left knee Knee pain, left Encounter for pre-operative examination Episodes of speech arrest 04/21/23 Episodes of staring 04/21/23 Lumbar spondylosis Thrombocytopenia Spinal stenosis Positive ROSANGELA (antinuclear antibody) Scalp hematoma Gastritis 01/30/22 Elevated LFTs Ambulatory dysfunction (Acute) Frequent falls (Acute) Chronic pain disorder Hypocalcemia Anemia Leukopenia Encephalopathy Metabolic acidosis (Acute) Hypomagnesemia (Acute) Chronic hyponatremia S/P cervical spinal fusion ROM WNL History of onel hole surgery History of arthroscopic procedure on shoulder Rt History of carpal tunnel surgery Rt COPD (chronic obstructive pulmonary disease) pt denies Alcoholism (Acute) Chronic pancreatitis pt denies Nonischemic cardiomyopathy Uterine leiomyoma (Chronic 07/18/11) 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/11) Seizure disorder (Chronic 05/16/12) Medical History NEREYDA (acute kidney injury) Stroke-like symptoms Headache Acute UTI Bradycardia Acute dehydration Altered mental status Hypotension Lumbar stenosis 03/26/24 MRI showed significant stenosis lumbar spine; pt was originally to have lumbar decompression/fusion but put on hold pending evaluation for pancytopenia History of recent hospitalization [facility] 03/26/24-03/29/24: dx: hyponatremia, weakness, neutropenia, LBP. pt started on fluid restriction and sodium tabs. heme recommended bone marrow bx for neutropenia. ortho/spine consulted for lumbar spinal stenosis but operative mgmt deferred 2/2 comorbidities and pancytopenia. 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 These have been stopped... 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 These have been stopped" Spinal stenosis GERD (gastroesophageal reflux disease) controlled, stable per pt Difficult airway for intubation limited cervical spine extension; s/p cervical spinal fusion Lumbar facet joint syndrome Lumbar spondylosis Hx of falling last fall over 1 year ago per patient Hx of gastritis patient denies recent flare Hx of encephalopathy no issues since stopping ETOH use 2021 COPD (chronic obstructive pulmonary disease) former smoker History of alcoholism (2021) quit 2021 (drank 6 beers/day) Hx of tinnitus Hx of migraines Pulmonary hypertension Hx of per 09/2019 ECHO: Moderate pulmonary HTN: Tiffanie PASP 51mmhg, assuming RAP of 3mmhg; per 03/2024 ECHO: RVSP 31mmHg Seasonal allergies Non-ischemic cardiomyopathy alcoholic CM; EF 35-40% in 2018, 60-65% in 2019 Hx of chronic pancreatitis History of anemia Chronic pain disorder back Positive ROSANGELA (antinuclear antibody) Stress incontinence Chronic cough Follows with [facility] pulm - pt. reports due to pollen and states has nearly resolved in recent months HTN (hypertension) controlled, stable per pt Cirrhosis Hep C induced; pt recently dx with recurrence of Hep C and awaiting tx with hepatology History of subdural hematoma (2010) 2010 Osteoarthritis History of seizure (2010) Following subdural hematoma 2010 from fall. Pt follows with [facility] Neuro; per 01/01/24 Neuro note, pt had 'episode of speech and movement arrest in the context of a histyr of posttraumatic seizures' 04/2023. Had normal EEG. Pt advised by neuro to start keppra but pt refuses. Surgical History Hx of blepharoplasty (01/2024) History of craniotomy (2010) Due to subdural hematoma from fall Hx of hysterectomy Hx of cholecystectomy History of carpal tunnel release right Hx of arthroscopy of shoulder right Hx of arthroscopy of left knee S/P cervical spinal fusion C4-C7 per imaging review History of onel hole surgery (2010) lead to craniotomy History of esophagogastroduodenoscopy (EGD) History of colonoscopy Family History Mother Hypertension Other No family history of adverse response to anesthesia Social History Smoking Status: Former smoker Tobacco Type: Cigarettes Age Started Using Tobacco: 18; Age Quit Using Tobacco: 30; packs per day: 1; Cigarettes Per Day: 1 pack a day; Second Hand Exposure: No; Do You Dip or Chew Tobacco: No; Tobacco Cessation Education Requested by Patient: No Hx Alcohol Use: No Hx Substance Use: No Preferred Language: Hong Konger Communication Ability: Effective Platform Man Required: No Beliefs That Will Affect Care: None marital status: Single Current Living Situation: Spouse Current Living Situation Comment: Lives at home with . current occupational status: unemployed How many Children do You have: 0 Other Information That Helps Us Care for You: No Feels Safe at Home: Yes Safety Concerns: Feels Safe At This Time Assistive Devices: Hearing Aid - Bilateral, Walker and Wheelchair Allergies Allergies Allergy/AdvReac Type Severity Reaction Status Date / Time brexpiprazole [From Rexulti] Allergy Severe Makes me Unverified 05/11/24 10:31 very lofty aripiprazole AdvReac Severe seizure Verified 05/11/24 10:31 activity per [facility] EMR gabapentin AdvReac Severe Confusion Verified 05/11/24 10:31 acetaminophen AdvReac Unknown per [facility] Verified 05/11/24 10:31 EMR, to be avoided given cirrhosis ibuprofen AdvReac Unknown per [facility] Verified 05/11/24 10:31 EMR to be avoided given cirrhosis Home Meds Home Medications Medication Instructions Recorded Confirmed rizatriptan 10 mg disintegrating 10 mg PO DIRECTED PRN Migraine 11/21/21 05/11/24 tablet Headache calcium carbonate 600 mg-vitamin 2 cap PO QAM 08/02/22 05/11/24 D3 12.5 mcg (500 unit) capsule (Calcium 600 with Vitamin D3) alendronate 35 mg tablet 35 mg PO WK 04/20/23 05/11/24 buspirone 30 mg tablet 30 mg PO BID 04/20/23 05/11/24 diazepam 5 mg tablet 5 mg PO BID PRN Anxiety 04/20/23 05/11/24 multivitamin-ferrous 1 tab PO QAM 04/20/23 05/11/24 fumarate-folic acid 18 mg-400 mcg tablet (Centrum Women) omeprazole 40 mg capsule,delayed 40 mg PO DAILY gerd 04/20/23 05/11/24 release losartan 25 mg tablet 25 mg PO BID 07/31/23 05/11/24 nystatin 100,000 unit/gram topical 1 applic topical UD PRN Skin 07/31/23 05/11/24 cream Irritation clotrimazole 2 % vaginal cream 1 appful topical UD PRN Vaginal 04/23/24 05/11/24 Dryness carvedilol 3.125 mg tablet 3.125 mg PO BID 04/26/24 05/11/24 fluoxetine 20 mg capsule See Rx Instructions .Route .COMPLEX 04/26/24 05/11/24 fluoxetine 40 mg capsule See Rx Instructions .Route .COMPLEX 04/26/24 05/11/24 oxycodone 5 mg tablet 7.5 mg PO Q6H PRN Pain 04/26/24 05/11/24 trazodone 150 mg tablet 225 mg PO HS PRN Insomnia 04/26/24 05/11/24 sodium chloride 1,000 mg soluble 1,000 mg PO BID 05/05/24 05/11/24 tablet Previous Rx's Medication Instructions Recorded aspirin 81 mg tablet,delayed 81 mg PO DAILY #30 tabs 04/30/24 release atorvastatin 40 mg tablet 40 mg PO QAM #30 tabs 04/30/24 prednisone 20 mg tablet 20 mg PO DAILY 6 days #6 tabs 05/06/24 Results & Data (ED) Vital Signs Vital Signs - 24 hr 05/11/24 06:52 05/11/24 07:24 05/11/24 07:25 Temperature 36.6 C Temperature Source Oral Pulse Rate 76 Pulse Rate [Apical] 77 Pulse Rate from SpO2 Sensor Respiratory Rate 16 18 Respiratory Effort / Characteristics Non-Labored Spontaneous Respiratory Depth Normal Blood Pressure 129/50 L 114/60 Blood Pressure [Right Arm] 114/60 Blood Pressure Mean 76 74 Blood Pressure Mean [Right Arm] 78 Blood Pressure Position [Right Arm] Lying Pulse Oximetry 97 96 Oxygen Delivery Method Room Air Room Air Sepsis Recent Fever Within 48 Hours No Sepsis New/Unexplained Change in Mental Status N/A Sepsis Action Taken by Nursing No Action Required 05/11/24 07:30 05/11/24 07:30 05/11/24 07:57 Temperature Temperature Source Pulse Rate 78 77 Pulse Rate [Apical] Pulse Rate from SpO2 Sensor 77 77 Respiratory Rate 13 15 Respiratory Effort / Characteristics Respiratory Depth Blood Pressure 118/61 Blood Pressure [Right Arm] Blood Pressure Mean 74 Blood Pressure Mean [Right Arm] Blood Pressure Position [Right Arm] Pulse Oximetry 97 97 Oxygen Delivery Method Sepsis Recent Fever Within 48 Hours Sepsis New/Unexplained Change in Mental Status Sepsis Action Taken by Nursing 05/11/24 08:00 05/11/24 08:03 05/11/24 08:30 Temperature Temperature Source Pulse Rate 78 Pulse Rate [Apical] Pulse Rate from SpO2 Sensor 78 Respiratory Rate 12 Respiratory Effort / Characteristics Respiratory Depth Blood Pressure 117/55 L 105/55 L Blood Pressure [Right Arm] Blood Pressure Mean 77 81 Blood Pressure Mean [Right Arm] Blood Pressure Position [Right Arm] Pulse Oximetry 97 Oxygen Delivery Method Sepsis Recent Fever Within 48 Hours Sepsis New/Unexplained Change in Mental Status Sepsis Action Taken by Nursing 05/11/24 08:33 05/11/24 08:38 05/11/24 08:45 Temperature Temperature Source Pulse Rate 79 79 80 Pulse Rate [Apical] Pulse Rate from SpO2 Sensor 79 80 Respiratory Rate 12 Respiratory Effort / Characteristics Respiratory Depth Blood Pressure Blood Pressure [Right Arm] Blood Pressure Mean Blood Pressure Mean [Right Arm] Blood Pressure Position [Right Arm] Pulse Oximetry 96 96 Oxygen Delivery Method Sepsis Recent Fever Within 48 Hours Sepsis New/Unexplained Change in Mental Status Sepsis Action Taken by Nursing 05/11/24 08:57 05/11/24 09:00 05/11/24 09:00 Temperature Temperature Source Pulse Rate 80 Pulse Rate [Apical] 88 Pulse Rate from SpO2 Sensor 80 Respiratory Rate 12 17 Respiratory Effort / Characteristics Non-Labored Spontaneous Respiratory Depth Normal Blood Pressure 102/53 L Blood Pressure [Right Arm] 102/53 L Blood Pressure Mean 71 Blood Pressure Mean [Right Arm] 69 Blood Pressure Position [Right Arm] Sitting Pulse Oximetry 95 97 Oxygen Delivery Method Room Air Sepsis Recent Fever Within 48 Hours Sepsis New/Unexplained Change in Mental Status Sepsis Action Taken by Nursing 05/11/24 09:18 05/11/24 09:21 05/11/24 09:26 Temperature Temperature Source Pulse Rate 95 H 93 H Pulse Rate [Apical] Pulse Rate from SpO2 Sensor Respiratory Rate 14 15 Respiratory Effort / Characteristics Respiratory Depth Blood Pressure 120/61 Blood Pressure [Right Arm] Blood Pressure Mean 81 Blood Pressure Mean [Right Arm] Blood Pressure Position [Right Arm] Pulse Oximetry Oxygen Delivery Method Sepsis Recent Fever Within 48 Hours Sepsis New/Unexplained Change in Mental Status Sepsis Action Taken by Nursing 05/11/24 09:30 05/11/24 09:33 05/11/24 09:36 Temperature Temperature Source Pulse Rate 89 89 Pulse Rate [Apical] Pulse Rate from SpO2 Sensor 89 89 Respiratory Rate 13 12 Respiratory Effort / Characteristics Respiratory Depth Blood Pressure 99/68 L Blood Pressure [Right Arm] Blood Pressure Mean 74 Blood Pressure Mean [Right Arm] Blood Pressure Position [Right Arm] Pulse Oximetry 95 95 Oxygen Delivery Method Sepsis Recent Fever Within 48 Hours Sepsis New/Unexplained Change in Mental Status Sepsis Action Taken by Nursing 05/11/24 10:00 05/11/24 10:15 05/11/24 10:18 Temperature Temperature Source Pulse Rate 76 76 Pulse Rate [Apical] Pulse Rate from SpO2 Sensor 76 76 Respiratory Rate 15 13 Respiratory Effort / Characteristics Respiratory Depth Blood Pressure 109/57 L Blood Pressure [Right Arm] Blood Pressure Mean 76 Blood Pressure Mean [Right Arm] Blood Pressure Position [Right Arm] Pulse Oximetry 96 96 Oxygen Delivery Method Sepsis Recent Fever Within 48 Hours Sepsis New/Unexplained Change in Mental Status Sepsis Action Taken by Nursing 05/11/24 10:30 05/11/24 10:33 05/11/24 10:45 Temperature Temperature Source Pulse Rate 77 76 Pulse Rate [Apical] Pulse Rate from SpO2 Sensor 77 76 Respiratory Rate 16 18 Respiratory Effort / Characteristics Respiratory Depth Blood Pressure 101/61 Blood Pressure [Right Arm] Blood Pressure Mean 71 Blood Pressure Mean [Right Arm] Blood Pressure Position [Right Arm] Pulse Oximetry 95 96 Oxygen Delivery Method Sepsis Recent Fever Within 48 Hours Sepsis New/Unexplained Change in Mental Status Sepsis Action Taken by Nursing 05/11/24 10:51 05/11/24 11:00 05/11/24 11:05 Temperature Temperature Source Pulse Rate 75 74 Pulse Rate [Apical] 73 Pulse Rate from SpO2 Sensor 75 74 Respiratory Rate 16 18 18 Respiratory Effort / Characteristics Non-Labored Spontaneous Respiratory Depth Normal Blood Pressure Blood Pressure [Right Arm] 94/56 L Blood Pressure Mean Blood Pressure Mean [Right Arm] 68 Blood Pressure Position [Right Arm] Lying Pulse Oximetry 95 96 96 Oxygen Delivery Method Room Air Sepsis Recent Fever Within 48 Hours Sepsis New/Unexplained Change in Mental Status Sepsis Action Taken by Nursing 05/11/24 11:05 05/11/24 11:30 05/11/24 11:33 Temperature Temperature Source Pulse Rate 71 Pulse Rate [Apical] Pulse Rate from SpO2 Sensor 71 Respiratory Rate 17 Respiratory Effort / Characteristics Respiratory Depth Blood Pressure 94/56 L 123/64 Blood Pressure [Right Arm] Blood Pressure Mean 63 78 Blood Pressure Mean [Right Arm] Blood Pressure Position [Right Arm] Pulse Oximetry 96 Oxygen Delivery Method Sepsis Recent Fever Within 48 Hours Sepsis New/Unexplained Change in Mental Status Sepsis Action Taken by Nursing 05/11/24 11:48 05/11/24 11:57 05/11/24 12:12 Temperature Temperature Source Pulse Rate 71 70 72 Pulse Rate [Apical] Pulse Rate from SpO2 Sensor 71 70 Respiratory Rate 13 18 20 Respiratory Effort / Characteristics Respiratory Depth Blood Pressure 95/56 L Blood Pressure [Right Arm] Blood Pressure Mean 69 Blood Pressure Mean [Right Arm] Blood Pressure Position [Right Arm] Pulse Oximetry 96 97 Oxygen Delivery Method Sepsis Recent Fever Within 48 Hours Sepsis New/Unexplained Change in Mental Status Sepsis Action Taken by Nursing 05/11/24 12:21 Temperature Temperature Source Pulse Rate 69 Pulse Rate [Apical] Pulse Rate from SpO2 Sensor 69 Respiratory Rate 14 Respiratory Effort / Characteristics Respiratory Depth Blood Pressure Blood Pressure [Right Arm] Blood Pressure Mean Blood Pressure Mean [Right Arm] Blood Pressure Position [Right Arm] Pulse Oximetry 96 Oxygen Delivery Method Sepsis Recent Fever Within 48 Hours Sepsis New/Unexplained Change in Mental Status Sepsis Action Taken by Nursing Laboratory Data Attestation: I reviewed the patient's lab results. 05/11/24 07:10 05/11/24 16:15 Lab Results 05/11/24 05/11/24 05/11/24 Range/Units 07:10 07:18 07:30 WBC 7.69 (4.8-10.8) K/ul RBC 3.61 L (4.20-5.40) M/uL Hgb 12.1 (12.0-16.0) g/dl POC Hgb 11.9 L (12.0-16.0) g/dl Hct 34.3 L (37.0-47.0) % POC Hct 35 L (37-47) % MCV 95.0 (80.0-100.0) fL MCH 33.5 (25.0-34.0) pg MCHC 35.3 (32.0-36.0) g/dL RDW Std Deviation 44.1 (36.4-46.3) fL RDW Coeff of Chica 12.7 (11.5-14.5) % Plt Count 152 (130-400) K/uL MPV 8.5 L (9.4-12.4) fL Immature Gran % (Auto) 0.7 % Neut % (Auto) 69.5 % Lymph % (Auto) 18.6 % Desha % (Auto) 10.7 % Eos % (Auto) 0.4 % Baso % (Auto) 0.1 % Neut # (Auto) 5.35 (1.40-6.50) K/uL Lymph # (Auto) 1.43 (1.20-3.40) K/uL Desha # (Auto) 0.82 H (0.11-0.59) K/uL Eos # (Auto) 0.03 (0.00-0.50) K/uL Baso # (Auto) 0.01 (0.00-0.20) K/uL Immature Gran # (Auto) 0.05 (0.01-0.20) K/uL PT 15.6 H (9.0-12.0) Seconds INR 1.5 H (0.9-1.1) POC Sodium 134 L (135-144) mmol/L Sodium 134 L (136-145) mmol/L POC Potassium 3.0 L (3.3-5.0) mmol/L Potassium 3.1 L (3.5-5.1) mmol/L POC Chloride 104 (101-112) mmol/L Chloride 99 (98-107) mmol/L Carbon Dioxide 21 (21-32) mmol/L POC Total CO2 21 L (24-31) mmol/L Anion Gap 14 H (3-11) POC Anion Gap 14.0 L (16-25) mmol/L POC BUN 11 (7-18) mg/dl BUN 13 (6-23) mg/dl Creatinine 1.16 (0.6-1.2) mg/dl POC Creatinine 1.2 (0.6-1.3) mg/dl Est Cr Clr Drug Dosing 48.1 ml/min Est GFR ( Amer) 57.2 ml/min Est GFR (Non-Af Amer) 49.4 ml/min BUN/Creatinine Ratio 11.2 (10-20) Glucose 83 (70-99(Fasting)) mg/dl POC Glucose (other) 85 (70-99) mg/dl Calcium 8.1 L (8.6-10.3) mg/dl POC Ioniz Calcium Kar 0.83 L (1.12-1.32) mmol/l Phosphorus 3.7 (2.5-4.9) mg/dl Magnesium 1.4 L (1.7-2.4) mg/dl Total Bilirubin 0.2 (0.2-1.0) mg/dl Direct Bilirubin 0.1 (0-0.2) mg/dl AST 20 (13-39) U/L ALT 15 (7-52) U/L Alkaline Phosphatase 40 (34-104) U/L Troponin I High Sens 4.2 (0-14) pg/ml B-Natriuretic Peptide 70 (0-100) pg/ml Total Protein 6.4 (6.0-8.3) gm/dl Albumin 3.9 (3.4-5.0) gm/dl Globulin 2.5 (2.5-4.0) gm/dl Albumin/Globulin Ratio 1.6 (0.9-2) Lipase 34 (11-82) U/L TSH 2.902 (0.300-4.500) uIu/ml Urine Color Urine Appearance (Clear) Urine pH (4.5-7.5) Ur Specific [place] (1.000-1.030) Urine Protein (Negative) Urine Glucose (UA) (Negative) Urine Ketones (Negative) Urine Blood (Negative) Urine Nitrite (Negative) Urine Bilirubin (Negative) Urine Urobilinogen (Negative) Ur Leukocyte Esterase (Negative) Ethyl Alcohol mg/dL (<10.0) mg/dl 05/11/24 05/11/24 Range/Units 07:49 11:36 WBC (4.8-10.8) K/ul RBC (4.20-5.40) M/uL Hgb (12.0-16.0) g/dl POC Hgb (12.0-16.0) g/dl Hct (37.0-47.0) % POC Hct (37-47) % MCV (80.0-100.0) fL MCH (25.0-34.0) pg MCHC (32.0-36.0) g/dL RDW Std Deviation (36.4-46.3) fL RDW Coeff of [place]ica (11.5-14.5) % Plt Count (130-400) K/uL MPV (9.4-12.4) fL Immature Gran % (Auto) % Neut % (Auto) % Lymph % (Auto) % Desha % (Auto) % Eos % (Auto) % Baso % (Auto) % Neut # (Auto) (1.40-6.50) K/uL Lymph # (Auto) (1.20-3.40) K/uL Desha # (Auto) (0.11-0.59) K/uL Eos # (Auto) (0.00-0.50) K/uL Baso # (Auto) (0.00-0.20) K/uL Immature Gran # (Auto) (0.01-0.20) K/uL PT (9.0-12.0) Seconds INR (0.9-1.1) POC Sodium (135-144) mmol/L Sodium (136-145) mmol/L POC Potassium (3.3-5.0) mmol/L Potassium (3.5-5.1) mmol/L POC Chloride (101-112) mmol/L Chloride (98-107) mmol/L Carbon Dioxide (21-32) mmol/L POC Total CO2 (24-31) mmol/L Anion Gap (3-11) POC Anion Gap (16-25) mmol/L POC BUN (7-18) mg/dl BUN (6-23) mg/dl Creatinine (0.6-1.2) mg/dl POC Creatinine (0.6-1.3) mg/dl Est Cr Clr Drug Dosing ml/min Est GFR ( Amer) ml/min Est GFR (Non-Af Amer) ml/min BUN/Creatinine Ratio (10-20) Glucose (70-99(Fasting)) mg/dl POC Glucose (other) (70-99) mg/dl Calcium (8.6-10.3) mg/dl POC Ioniz Calcium Kar (1.12-1.32) mmol/l Phosphorus (2.5-4.9) mg/dl Magnesium (1.7-2.4) mg/dl Total Bilirubin (0.2-1.0) mg/dl Direct Bilirubin (0-0.2) mg/dl AST (13-39) U/L ALT (7-52) U/L Alkaline Phosphatase (34-104) U/L Troponin I High Sens (0-14) pg/ml B-Natriuretic Peptide (0-100) pg/ml Total Protein (6.0-8.3) gm/dl Albumin (3.4-5.0) gm/dl Globulin (2.5-4.0) gm/dl Albumin/Globulin Ratio (0.9-2) Lipase (11-82) U/L TSH (0.300-4.500) uIu/ml Urine Color Yellow Urine Appearance Clear (Clear) Urine pH 5.5 (4.5-7.5) Ur Specific [place] 1.023 (1.000-1.030) Urine Protein Negative (Negative) Urine Glucose (UA) Negative (Negative) Urine Ketones Trace H (Negative) Urine Blood Negative (Negative) Urine Nitrite Negative (Negative) Urine Bilirubin Negative (Negative) Urine Urobilinogen Negative (Negative) Ur Leukocyte Esterase Negative (Negative) Ethyl Alcohol mg/dL < 10.0 (<10.0) mg/dl Administered Medications Aspirin (Aspirin 81 Mg Ectab) 81 mg PO DAILY LAURA Stop: 06/10/24 14:39 Last Admin: 05/11/24 15:45 Dose: 81 mg Documented By: DOMI Atorvastatin Calcium (Atorvastatin 40 Mg Tab) 40 mg PO QAM LAURA Stop: 06/10/24 14:39 Last Admin: 05/11/24 15:45 Dose: 40 mg Documented By: MMP Fluoxetine HCl (Fluoxetine Hcl 20 Mg Cap) 60 mg PO DAILY LAURA Stop: 06/10/24 14:39 Last Admin: 05/11/24 15:44 Dose: 60 mg Documented By: MMP Pantoprazole Sodium (Pantoprazole 40 Mg Tab) 40 mg PO DAILY LAURA Stop: 06/10/24 14:44 Last Admin: 05/11/24 15:46 Dose: 40 mg Documented By: DOMI Discontinued Medications Sodium Chloride (Nss) 1,000 mls @ 999 mls/hr IV .Q1H1M ONE Stop: 05/11/24 08:40 Last Infusion: 05/11/24 10:03 Dose: Infused Documented By: Admin: 05/11/24 07:50 Dose: 999 mls/hr Documented By: DIANA Magnesium Sulfate/Dextrose (Magnesium Sulfate / D5w) 1 gm in 100 mls @ 100 mls/hr IV Q1H LAURA Stop: 05/11/24 11:48 Last Infusion: 05/11/24 13:34 Dose: Infused Documented By: Admin: 05/11/24 12:34 Dose: 100 mls/hr Documented By: Infusion: 05/11/24 11:01 Dose: Infused Documented By: Admin: 05/11/24 09:55 Dose: 100 mls/hr Documented By: DIANA Potassium Chloride (K Rian / Wtr) 10 meq in 100 mls @ 100 mls/hr IV Q1H LAURA Stop: 05/11/24 11:59 Last Infusion: 05/11/24 12:32 Dose: Infused Documented By: Admin: 05/11/24 11:27 Dose: 100 mls/hr Documented By: Infusion: 05/11/24 11:01 Dose: Infused Documented By: Admin: 05/11/24 09:55 Dose: 100 mls/hr Documented By: CC Potassium Chloride (K Rian / Wtr) 10 meq in 100 mls @ 100 mls/hr IV Q1H LAURA Stop: 05/11/24 12:59 Last Admin: 05/11/24 15:07 Dose: Not Given Documented By: Infusion: 05/11/24 13:34 Dose: Infused Documented By: Admin: 05/11/24 12:33 Dose: 100 mls/hr Documented By: GEORGE Magnesium Sulfate/Dextrose (Magnesium Sulfate / D5w) 1 gm in 100 mls @ 100 mls/hr IV NOW STA Stop: 05/11/24 11:45 Last Infusion: 05/11/24 12:32 Dose: Infused Documented By: Admin: 05/11/24 11:26 Dose: 100 mls/hr Documented By: GEORGE Ioversol (Optiray 320 100ml) 94 ml IV ONCE ONE Stop: 05/11/24 08:11 Last Admin: 05/11/24 08:10 Dose: 94 ml Documented By: ARGENTINA Potassium Chloride (Potassium Chloride Crtab 20 Meq Tabcr) 40 meq PO NOW STA Stop: 05/11/24 10:45 Last Admin: 05/11/24 11:26 Dose: 40 meq Documented By: GEORGE Imaging Data Radiologist's Impression: Chest X-Ray 05/11/24 06:56 XR chest 1V portable HISTORY: 64 years-old Female Chest pain, nonspecific COMPARISON: 05/05/2024 TECHNIQUE: AP view of the chest FINDINGS: Cardiomediastinal and hilar silhouettes are unchanged. Cervical spinal fusion hardware. Cholecystectomy. No pneumothorax, pleural effusion or airspace consolidation. The bones of the chest appear grossly intact. IMPRESSION: No acute process. ACT 112: Negative or not required by law. The above report was generated using voice recognition software. It may contain grammatical, syntax or spelling errors. Electronically signed by: Ashu Gusman M.D. 05/11/2024 7:57 AM Abdomen/Pelvis CT 05/11/24 07:37 CT SCAN OF THE ABDOMEN AND PELVIS WITH IV CONTRAST CLINICAL HISTORY: Generalized abdominal pain. Falls. COMPARISON STUDY: Abdominal CT dated 02/20/2024. TECHNIQUE: Following the IV administration of 94 cc of Optiray 320, CT scan of the abdomen and pelvis is performed from the lung bases to the proximal femora. Images are reviewed in the axial, sagittal, and coronal planes. IV contrast was administered without complication. A dose lowering technique was utilized adhering to the principles of ALARA. CT DOSE: 2704.03 mGy.cm FINDINGS: Lung bases: The heart is normal in size and without pericardial effusion. The mitral annulus is densely calcified. The lung bases are clear noting bibasilar scarring/atelectasis. Liver: The contrast-enhanced liver is cirrhotic in morphology and heterogeneous in attenuation. There is hypertrophy of the left lobe and nodularity of the surface contour. There is no intrahepatic biliary ductal dilatation. The hepatic veins and portal veins are patent. Gallbladder: Surgically absent noting clips in the gallbladder fossa. Spleen: Normal in size and attenuation. Pancreas: There are numerous parenchymal calcifications suggesting chronic pancreatitis. Adrenal glands: Unremarkable. Kidneys: The contrast enhanced kidneys are normal in size and without hydronephrosis. The kidneys enhance symmetrically. Abdominal vasculature: The abdominal aorta is normal in course and caliber noting moderate atherosclerotic calcification. Bowel: No bowel obstruction is seen. The appendix is well-visualized and normal. Peritoneum: There is no intraperitoneal free air or abdominal ascites. There is a tiny fat-containing umbilical hernia. Lymphadenopathy: None. Pelvic viscera: The bladder is normal as visualized. The uterus is surgically absent. No adnexal lesion is seen. Skeletal structures: The skeletal structures are osteopenic. There is moderate lumbosacral spondylosis. No lytic or blastic lesions are seen. IMPRESSION: 1. No acute infectious or inflammatory findings are identified in the abdomen or pelvis. 2. Cirrhotic liver morphology. 3. There is evidence of chronic pancreatitis. 4. Additional findings as above. ACT 112: Negative or not required by law. Electronically signed by: Keegan Caceres M.D. 05/11/2024 9:[address] 05/11/24 07:[address] WITH CONTRAST HISTORY: Acute chest and abdominal pain status post trauma pain, recurrent falls TECHNIQUE: Multiaxial CT images of the chest were performed following the IV administration of 94 cc of Optiray. A dose lowering technique was utilized adhering to the principles of ALARA. COMPARISON: CT abdomen and pelvis of same day, chest CT 02/20/2024 FINDINGS: Unremarkable thyroid. Partially calcified nonenlarged mediastinal and hilar lymph nodes compatible with prior granulomatous disease. The heart is upper limits of normal in size. No thoracic aortic aneurysm or dissection identified. No pulmonary emboli are seen. There is no pneumothorax, pleural effusion, airspace consolidation or pulmonary edema. Mild dependent subsegmental bibasilar atelectasis. No suspicious pulmonary nodules or masses. The central airways are patent. No acute upper abdominal abnormality. Cholecystectomy. Mild marginal nodularity of the liver suggestive of cirrhosis. Spleen measures up to 12 cm and demonstrates mild nonspecific heterogeneous enhancement. Unremarkable soft tissues. Partially imaged cervical spinal fusion hardware. Chronic appearing nondisplaced anterior rib fractures. No acute rib fracture identified. IMPRESSION: 1. No acute posttraumatic intrathoracic abnormality identified. 2. Cirrhotic liver. 3. Please refer to the same day CT abdomen and pelvis study for additional findings. ACT 112: Negative or not required by law. Electronically signed by: Ashu Gusman M.D. 05/11/2024 9:[address] 05/11/24 07:37 CT head/brain wo con CLINICAL HISTORY: 64 years-old Female with pain, recurrent falls. Acute head trauma status post fall TECHNIQUE: Multiple axial CT images of the head were obtained without contrast. A dose lowering technique was utilized adhering to the principles of ALARA. COMPARISON: Brain MRI 05/05/2024 FINDINGS: No acute intracranial hemorrhage, midline shift, intracranial mass, hydrocephalus, territorial ischemia or abnormal extra-axial collection. Involutional changes with chronic microvascular ischemic disease. Cerebral vascular calcifications. Prior right-sided craniotomy. The calvarium is intact. The paranasal sinuses, mastoid air cells, and middle ear cavities are clear. IMPRESSION: No acute intracranial abnormality. ACT 112: Negative or not required by law. The above report was generated using voice recognition software. It may contain grammatical, syntax or spelling errors. Electronically signed by: Ashu Gusman M.D. 05/11/2024 9:[address] 05/11/24 07:39 CT SCAN OF THE CERVICAL SPINE CLINICAL HISTORY: Falls. Neck pain. COMPARISON STUDY: CT of the cervical spine dated 01/30/2022. TECHNIQUE: CT scan of the cervical spine is performed from the skull base to the upper thoracic spine. Images are reviewed in the axial, sagittal, and coronal planes. IV contrast was not administered for this examination. A dose lowering technique was utilized adhering to the principles of ALARA. FINDINGS: Skeletal structures: The skeletal structures are osteopenia. There is no evidence of fracture or subluxation involving the cervical spine. Vertebral body height and alignment are maintained. There is postsurgical change from anterior fusion seen at C4-C7. There is straightening of cervical lordosis. The odontoid process and lateral masses are intact. The atlantoaxial articulation is preserved noting mild productive degenerative change. The spinous processes appear intact. There is multilevel facet arthropathy. Intervertebral discs: There is discectomy at C4-C5, C5-C6, and C6-C7. Moderate disc space narrowing is noted at C7-T1. Central canal: Grossly patent. Soft tissues: The prevertebral and paraspinous soft tissues are within normal limits. Atherosclerotic calcification is noted in the carotid bulbs. Sialoliths are noted in the parotid glands. Calvarium: The visualized calvarium at the skull base appears intact. Brain parenchyma: Partially visualized brain parenchyma at the skull base is within normal limits. Sinuses and mastoids: The visualized paranasal sinuses are clear. The mastoid air cells are well pneumatized. Lung apices: Clear as visualized. IMPRESSION: 1. There is no evidence of fracture or subluxation involving the cervical spine. 2. Osteopenia with postsurgical and degenerative change as above. ACT 112: Negative or not required by law. Electronically signed by: Keegan Caceres M.D. 05/11/2024 9:02 AM Discharge Plan Visit Data Chief Complaint: Weakness Stated Complaint: FALLS, WEAKNESS ED Provider: Keenan Churchill Discharge Problem: Hypokalemia, Generalized weakness, Recurrent falls, Hypomagnesemia Patient Disposition: Admitted As Inpatient Discharge Instructions Interventions: ED Discharge Assessment Last Done: 05/11/24 18:31
[2024-05-11 07:56] LABS: Troponin I High Sensitivity 4.2 pg/ml (0-14)
--- NOTE | 2024-05-11 07:59 | XRay Report ---
XR chest 1V portable HISTORY: 64 years-old Female Chest pain, nonspecific COMPARISON: 05/05/2024 TECHNIQUE: AP view of the chest FINDINGS: Cardiomediastinal and hilar silhouettes are unchanged. Cervical spinal fusion hardware. Cholecystecto my. No pneumothorax, pleural effusion or airspace consolidation. The bones of the chest appear grossl y intact. IMPRESSION: No acute process. ACT 112: Negative or not required by law. The above report was generated using voice recognition software. It may contain grammatical, syntax o r spelling errors. Electronically signed by: Ashu Gusman M.D. 05/11/2024 7:57 AM
[2024-05-11 08:02] LABS: INR 1.5 (0.9-1.1); Prothrombin Time 15.6 Seconds (9.0-12.0)
[2024-05-11 08:06] LABS: Thyroid Stimulating Hormone 2.902 uIu/ml (0.300-4.500)
[2024-05-11] MEDS: OPTIRAY 320 100ml IV ONE (08:10)
--- NOTE | 2024-05-11 09:02 | CT Scan Report ---
CT head/brain wo con CLINICAL HISTORY: 64 years-old Female with pain, recurrent falls. Acute head trauma status post fall TECHNIQUE: Multiple axial CT images of the head were obtained without contrast. A dose lowering tech nique was utilized adhering to the principles of ALARA. COMPARISON: Brain MRI 05/05/2024 FINDINGS: No acute intracranial hemorrhage, midline shift, intracranial mass, hydrocephalus, territorial ischem ia or abnormal extra-axial collection. Involutional changes with chronic microvascular ischemic disea se. Cerebral vascular calcifications. Prior right-sided craniotomy. The calvarium is intact. The paranasal sinuses, mastoid air cells, and middle ear cavities are clear . IMPRESSION: No acute intracranial abnormality. ACT 112: Negative or not required by law. The above report was generated using voice recognition software. It may contain grammatical, syntax o r spelling errors. Electronically signed by: Ashu Gusman M.D. 05/11/2024 9:00 AM
--- NOTE | 2024-05-11 09:03 | CT Scan Report ---
CT SCAN OF THE CERVICAL SPINE CLINICAL HISTORY: Falls. Neck pain. COMPARISON STUDY: CT of the cervical spine dated 01/30/2022. TECHNIQUE: CT scan of the cervical spine is performed from the skull base to the upper thoracic spine . Images are reviewed in the axial, sagittal, and coronal planes. IV contrast was not administered fo r this examination. A dose lowering technique was utilized adhering to the principles of ALARA. FINDINGS: Skeletal structures: The skeletal structures are osteopenia. There is no evidence of fracture or subl uxation involving the cervical spine. Vertebral body height and alignment are maintained. There is p ostsurgical change from anterior fusion seen at C4-C7. There is straightening of cervical lordosis. T he odontoid process and lateral masses are intact. The atlantoaxial articulation is preserved noting mild productive degenerative change. The spinous processes appear intact. There is multilevel facet a rthropathy. Intervertebral discs: There is discectomy at C4-C5, C5-C6, and C6-C7. Moderate disc space narrowing i s noted at C7-T1. Central canal: Grossly patent. Soft tissues: The prevertebral and paraspinous soft tissues are within normal limits. Atherosclerotic calcification is noted in the carotid bulbs. Sialoliths are noted in the parotid glands. Calvarium: The visualized calvarium at the skull base appears intact. Brain parenchyma: Partially visualized brain parenchyma at the skull base is within normal limits. Sinuses and mastoids: The visualized paranasal sinuses are clear. The mastoid air cells are well pneu matized. Lung apices: Clear as visualized. IMPRESSION: 1. There is no evidence of fracture or subluxation involving the cervical spine. 2. Osteopenia with postsurgical and degenerative change as above. ACT 112: Negative or not required by law. Electronically signed by: Keegan Caceres M.D. 05/11/2024 9:02 AM
--- NOTE | 2024-05-11 09:18 | CT Scan Report ---
CHEST CT WITH CONTRAST HISTORY: Acute chest and abdominal pain status post trauma pain, recurrent falls TECHNIQUE: Multiaxial CT images of the chest were performed following the IV administration of 94 cc of Optiray. A dose lowering technique was utilized adhering to the principles of ALARA. COMPARISON: CT abdomen and pelvis of same day, chest CT 02/20/2024 FINDINGS: Unremarkable thyroid. Partially calcified nonenlarged mediastinal and hilar lymph nodes com patible with prior granulomatous disease. The heart is upper limits of normal in size. No thoracic ao rtic aneurysm or dissection identified. No pulmonary emboli are seen. There is no pneumothorax, pleural effusion, airspace consolidation or pulmonary edema. Mild dependent subsegmental bibasilar atelectasis. No suspicious pulmonary nodules or masses. The central airways a re patent. No acute upper abdominal abnormality. Cholecystectomy. Mild marginal nodularity of the deejay er suggestive of cirrhosis. Spleen measures up to 12 cm and demonstrates mild nonspecific heterogeneo us enhancement. Unremarkable soft tissues. Partially imaged cervical spinal fusion hardware. Chronic appearing nondisplaced anterior rib fractures. No acute rib fracture identified. IMPRESSION: 1. No acute posttraumatic intrathoracic abnormality identified. 2. Cirrhotic liver. 3. Please refer to the same day CT abdomen and pelvis study for additional findings. ACT 112: Negative or not required by law. Electronically signed by: Ashu Gusman M.D. 05/11/2024 9:17 AM
--- NOTE | 2024-05-11 09:46 | CT Scan Report ---
CT SCAN OF THE ABDOMEN AND PELVIS WITH IV CONTRAST CLINICAL HISTORY: Generalized abdominal pain. Falls. COMPARISON STUDY: Abdominal CT dated 02/20/2024. TECHNIQUE: Following the IV administration of 94 cc of Optiray 320, CT scan of the abdomen and pelvi s is performed from the lung bases to the proximal femora. Images are reviewed in the axial, sagittal , and coronal planes. IV contrast was administered without complication. A dose lowering technique wa s utilized adhering to the principles of ALARA. CT DOSE: 2704.03 mGy.cm FINDINGS: Lung bases: The heart is normal in size and without pericardial effusion. The mitral annulus is dense ly calcified. The lung bases are clear noting bibasilar scarring/atelectasis. Liver: The contrast-enhanced liver is cirrhotic in morphology and heterogeneous in attenuation. There is hypertrophy of the left lobe and nodularity of the surface contour. There is no intrahepatic bili cait ductal dilatation. The hepatic veins and portal veins are patent. Gallbladder: Surgically absent noting clips in the gallbladder fossa. Spleen: Normal in size and attenuation. Pancreas: There are numerous parenchymal calcifications suggesting chronic pancreatitis. Adrenal glands: Unremarkable. Kidneys: The contrast enhanced kidneys are normal in size and without hydronephrosis. The kidneys enh ance symmetrically. Abdominal vasculature: The abdominal aorta is normal in course and caliber noting moderate atheroscle rotic calcification. Bowel: No bowel obstruction is seen. The appendix is well-visualized and normal. Peritoneum: There is no intraperitoneal free air or abdominal ascites. There is a tiny fat-containing umbilical hernia. Lymphadenopathy: None. Pelvic viscera: The bladder is normal as visualized. The uterus is surgically absent. No adnexal lesi on is seen. Skeletal structures: The skeletal structures are osteopenic. There is moderate lumbosacral spondylosi s. No lytic or blastic lesions are seen. IMPRESSION: 1. No acute infectious or inflammatory findings are identified in the abdomen or pelvis. 2. Cirrhotic liver morphology. 3. There is evidence of chronic pancreatitis. 4. Additional findings as above. ACT 112: Negative or not required by law. Electronically signed by: Keegan Caceres M.D. 05/11/2024 9:45 AM
[2024-05-11] MEDS: POTASSIUM CHLORIDE / WTR 10 MEQ/100 ML PLCT IV SCH ×2 (09:55→12:33)
[2024-05-11] MEDS: MAGNESIUM SULFATE / D5W 1 GM/100 ML BAG IV SCH (09:55)
[2024-05-11 10:34] LABS: Bilirubin Direct 0.1 mg/dl (0-0.2)
[2024-05-11] MEDS: POTASSIUM CHLORIDE CRTAB 20 MEQ TABCR PO STA (11:26)
[2024-05-11] MEDS: MAGNESIUM SULFATE / D5W 1 GM/100 ML BAG IV STA (11:26)
--- NOTE | 2024-05-11 11:49 | History & Physical Report ---
Date of Service May 11, 2024 Assessment & Plan (1) Recurrent falls: Plan: Multiple unwitnessed falls on the evening of 05/10 Patient does not remember falling; she is unsure if she hit her head; denies LOC Ambulates with a walker at baseline Head/neck imaging without acute abnormalities on arrival A/P/chest CT without acute findings on arrival Afebrile without leukocytosis; elevated WBC from prior may be secondary to recent steroid taper prescribed on 05/06; d/c prednisone PT/OT evaluations appreciated Fall precautions Case management consulted for rehab planning upon discharge A.m. CBC, BMP, mag (2) Hypomagnesemia: Plan: Mag 1.4 on arrival Magnesium sulfate 1 g IV x 2 Trend mag (3) Hypokalemia: Plan: Mild; K 3.1 on arrival K rider 10mEq IV x 4 given in the ED Potassium chloride 40mEq p.o. given Trend BMP (4) Chronic hyponatremia: Plan: Chronic; sodium 134 and arrival Continue sodium tablets BID (5) History of CVA (cerebrovascular accident): Plan: Remote history of left lacunar infarct on brain MRI 04/27/2024 Clinically, patient denies facial droop, slurred speech, or unilateral deficits within the past 24 hours Continue aspirin and statin Plan Disposition: [facility] Full code Regular diet VTE PPx: SCDs in the setting of acute head trauma; platelets okay at 152 on arrival; please add on chemical DVT PPx if extended stay History of Present Illness Chief Complaint: Weakness, ambulatory dysfunction Primary Care Provider: DO Nury Quezada is a 64-year-old female with PMH of chronic pancreatitis, COPD, alcoholism, frequent falls, spinal stenosis, episodes of staring/speech arrest, incontinence, and chronic hyponatremia. She presented on 05/11 for multiple falls overnight. Patient's /POA (Mamta) is at bedside and provides ad ditional history. The patient reports she does not remember falling last night. She is unsure if she felt dizzy or lightheaded before she fell, however she denies loss of consciousness. She believes she fell while using her walker in the bathroom, then fell again when she tried to stand up. At first she denies head strike, but believes she might of hit her head/back the first time she fell, and her tailbone the second time she fell. Patient's reports that she does have a history of recurrent falls, with the last fall being about a week ago. Whenever she falls, reports that she usually "crumbles" to the ground. Patient took Valium and oxycodone 7.5 mg this morning at 6 AM this morning for pain. She does not take her regular morning medications. reports that there has been a gradual decline in lower extremity strength recently. No history of syncope. Patient does endorse loss of appetite. She recently had her diarrhea resolved, that have been ongoing since September; reports norovirus. She also recently completed treatment for UTI. Patient does have a history of stroke, however denies slurred speech, facial droop, or unilateral deficits last night. Patient's believes there may have been a mild facial droop this morning, however it is unclear. History of TBI years ago, and patient has had "shuffling feet" which can lead to ambulatory dysfunc tion and falls. Recent hospital admission for strokelike symptoms and weakness with discharge on 05/06; patient was discharged on a prednisone taper and home PT services; reports it was prescribed as patient was having migraines. However, patient's reports she does not feel that home PT has been enough for her given generalized weakness. Patient denies smoking, tobacco use, recent alcohol use. No burning with urination or UTI symptoms. Patient is mildly hypotensive at 95/56 at time of admission; vitals otherwise stable. ED course: K rider 10mEq x 4 Potassium chloride 40mEq p.o. Magnesium sulfate 1 g IV x 2 NSS 1000 mL IV ROS: Patient endorses headache, ongoing blurry vision, generalized fatigue, and leg weakness. Patient denies fever, chills, night-sweats, dizziness/lightheadedness, slurred speech, facial droop, unilateral deficits, chest pain, chest palpitations, SOB, cough, abdominal pain, N/V/D, changes in urinary/bowel habits, or numbness/tingling in the arms or legs. Allergies Allergy/AdvReac Type Severity Reaction Status Date / Time brexpiprazole [From [facility]] Allergy Severe Makes me Unverified 05/11/24 10:31 very lofty aripiprazole AdvReac Severe seizure Verified 05/11/24 10:31 activity per S EMR gabapentin AdvReac Severe Confusion Verified 05/11/24 10:31 acetaminophen AdvReac Unknown per [facility] Verified 05/11/24 10:31 EMR, to be avoided given cirrhosis ibuprofen AdvReac Unknown per [facility] Verified 05/11/24 10:31 EMR to be avoided given cirrhosis Home Medications Medication Instructions Recorded Confirmed Type rizatriptan 10 mg disintegrating 10 mg PO DIRECTED PRN Migraine 11/21/21 05/11/24 History tablet Headache calcium carbonate 600 mg-vitamin 2 cap PO QAM 08/02/22 05/11/24 History D3 12.5 mcg (500 unit) capsule (Calcium 600 with Vitamin D3) alendronate 35 mg tablet 35 mg PO WK 04/20/23 05/11/24 History buspirone 30 mg tablet 30 mg PO BID 04/20/23 05/11/24 History diazepam 5 mg tablet 5 mg PO BID PRN Anxiety 04/20/23 05/11/24 History multivitamin-ferrous 1 tab PO QAM 04/20/23 05/11/24 History fumarate-folic acid 18 mg-400 mcg tablet (Centrum Women) omeprazole 40 mg capsule,delayed 40 mg PO DAILY gerd 04/20/23 05/11/24 History release losartan 25 mg tablet 25 mg PO BID 07/31/23 05/11/24 History nystatin 100,000 unit/gram topical 1 applic topical UD PRN Skin 07/31/23 05/11/24 History cream Irritation clotrimazole 2 % vaginal cream 1 appful topical UD PRN Vaginal 04/23/24 05/11/24 History Dryness carvedilol 3.125 mg tablet 3.125 mg PO BID 04/26/24 05/11/24 History fluoxetine 20 mg capsule See Rx Instructions .Route .COMPLEX 04/26/24 05/11/24 History fluoxetine 40 mg capsule See Rx Instructions .Route .COMPLEX 04/26/24 05/11/24 History oxycodone 5 mg tablet 7.5 mg PO Q6H PRN Pain 04/26/24 05/11/24 History trazodone 150 mg tablet 225 mg PO HS PRN Insomnia 04/26/24 05/11/24 History aspirin 81 mg tablet,delayed 81 mg PO DAILY #30 tabs 04/30/24 05/11/24 Rx release atorvastatin 40 mg tablet 40 mg PO QAM #30 tabs 04/30/24 05/11/24 Rx sodium chloride 1,000 mg soluble 1,000 mg PO BID 05/05/24 05/11/24 History tablet prednisone 20 mg tablet 20 mg PO DAILY 6 days #6 tabs 05/06/24 05/11/24 Rx Past Med/Surg History Problem List (Updated 05/11/24 @ 19:51 by Keenan Churchill MD) Hypomagnesemia (Acute) Recurrent falls (Acute) Generalized weakness (Acute) Hypokalemia (Acute) History of CVA (cerebrovascular accident) Hypokalemia Recurrent falls Acute ischemic stroke Diarrhea Weakness (Acute) Vitamin D deficiency Neutropenia Hyponatremia with decreased serum osmolality Generalized weakness (Acute) Spinal stenosis of lumbar region Incontinence (Chronic) Myofascial pain Dermatochalasis of both upper eyelids 10/28/23 Shoulder pain Status post arthroscopy of left knee Knee pain, left Encounter for pre-operative examination Episodes of speech arrest 04/21/23 Episodes of staring 04/21/23 Lumbar spondylosis Thrombocytopenia Spinal stenosis Positive ROSANGELA (antinuclear antibody) Scalp hematoma Gastritis 01/30/22 Elevated LFTs Ambulatory dysfunction (Acute) Frequent falls (Acute) Chronic pain disorder Hypocalcemia Anemia Leukopenia Encephalopathy Metabolic acidosis (Acute) Hypomagnesemia (Acute) Chronic hyponatremia S/P cervical spinal fusion ROM WNL History of onel hole surgery History of arthroscopic procedure on shoulder Rt History of carpal tunnel surgery Rt COPD (chronic obstructive pulmonary disease) pt denies Alcoholism (Acute) Chronic pancreatitis pt denies Nonischemic cardiomyopathy Uterine leiomyoma (Chronic 07/18/11) 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 pt started on fluid restriction and sodium tabs. heme recommended bone marrow bx for neutropenia. ortho/spine consulted for lumbar spinal stenosis but operative mgmt deferred 2/2 comorbidities and pancytopenia. 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 These have been stopped... 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 These have been stopped" Spinal stenosis GERD (gastroesophageal reflux disease) controlled, stable per pt Difficult airway for intubation limited cervical spine extension; s/p cervical spinal fusion Lumbar facet joint syndrome Lumbar spondylosis Hx of falling last fall over 1 year ago per patient Hx of gastritis patient denies recent flare Hx of encephalopathy no issues since stopping ETOH use 2021 COPD (chronic obstructive pulmonary disease) former smoker History of alcoholism (2021) quit 2021 (drank 6 beers/day) Hx of tinnitus Hx of migraines Pulmonary hypertension Hx of per 09/2019 ECHO: Moderate pulmonary HTN: Tiffanie PASP 51mmhg, assuming RAP of 3mmhg; per 03/2024 ECHO: RVSP 31mmHg Seasonal allergies Non-ischemic cardiomyopathy alcoholic CM; EF 35-40% in 2018, 60-65% in 2019 Hx of chronic pancreatitis History of anemia Chronic pain disorder back Positive ROSANGELA (antinuclear antibody) Stress incontinence Chronic cough Follows with [facility] pulm - pt. reports due to pollen and states has nearly resolved in recent months HTN (hypertension) controlled, stable per pt Cirrhosis Hep C induced; pt recently dx with recurrence of Hep C and awaiting tx with hepatology History of subdural hematoma (2010) 2010 Osteoarthritis History of seizure (2010) Following subdural hematoma 2010 from fall. Pt follows with [facility] Neuro; per 01/01/24 Neuro note, pt had 'episode of speech and movement arrest in the context of a histyr of posttraumatic seizures' 04/2023. Had normal EEG. Pt advised by neuro to start keppra but pt refuses. Surgical History Hx of blepharoplasty (01/2024) History of craniotomy (2010) Due to subdural hematoma from fall Hx of hysterectomy Hx of cholecystectomy History of carpal tunnel release right Hx of arthroscopy of shoulder right Hx of arthroscopy of left knee S/P cervical spinal fusion C4-C7 per imaging review History of onel hole surgery (2010) lead to craniotomy History of esophagogastroduodenoscopy (EGD) History of colonoscopy Family History Mother Hypertension Other No family history of adverse response to anesthesia Social History Smoking Status: Former smoker Tobacco Type: Cigarettes Age Started Using Tobacco: 18; Age Quit Using Tobacco: 30; packs per day: 1; Cigarettes Per Day: 1 pack a day; Second Hand Exposure: No; Do You Dip or Chew Tobacco: No; Tobacco Cessation Education Requested by Patient: No Hx Alcohol Use: No Hx Substance Use: No Preferred Language: Yi Communication Ability: Effective Coating Operator Required: No Beliefs That Will Affect Care: None marital status: Single Current Living Situation: Spouse Current Living Situation Comment: Lives at home with . current occupational status: unemployed How many Children do You have: 0 Other Information That Helps Us Care for You: No Feels Safe at Home: Yes Safety Concerns: Feels Safe At This Time Assistive Devices: Hearing Aid - Bilateral, Walker and Wheelchair Review of Systems Review of Systems: See HPI above Physical Exam Physical Exam: General: no acute distress; pleasant affect; non-toxic appearing; well- nourished; cooperative; SpO2 97% on RA HEENT: normocephalic, atraumatic; no scleral icterus; PERRLA w/ EOMs intact; vision intact; hard of hearing; patient demonstrates ability to raise eyebrows, smile, and frown without unilateral deficits; patient demonstrates ability to protrude and wiggle tongue bilaterally without deficits Neck: supple; no lymphadenopathy; trachea midline Skin: Pallor; warm, dry without signs of tenting; no cyanosis; no rashes, bruising, lesions, or erythema noted CV: chest wall NTP; RRR; S1/S2 normal; no murmurs/rubs/gallops; pulses intact and symmetric at radial, DP, and PT Lungs: no acute respiratory distress; symmetrical chest wall expansion; clear breath sounds across all lung gimenez w/o adventitious sounds; no wheezing ABD: Soft, NTP; BS present; no rebound/guarding; no distention MSK: no tics or fasciculations; no edema noted in the LEs b/l, nonerythematous; 5/5 trampoline team coach strength bilaterally; 3/5 strength in the lower extremities bilaterally when lifting legs supine from the bed Neuro: A&Ox3; normal mood and affect; fluent speech; no focal deficits; sensation intact and symmetric in the face/UEs/LEs bilaterally l; negative pronator drift; Results & Data Results & Data Vital Signs (Past 12 Hours) Vital Signs Temp Pulse Pulse Resp BP BP Pulse Ox 05/11/24 11:33 71 17 96 05/11/24 11:30 123/64 05/11/24 11:05 94/56 L 05/11/24 11:05 73 18 94/56 L 96 05/11/24 11:00 74 18 96 05/11/24 10:51 75 16 95 05/11/24 10:45 76 18 96 05/11/24 10:33 77 16 95 05/11/24 10:30 101/61 05/11/24 10:18 76 13 96 05/11/24 10:15 76 15 96 05/11/24 10:00 109/57 L 05/11/24 09:36 89 12 95 05/11/24 09:33 89 13 95 05/11/24 09:30 99/68 L 05/11/24 09:26 120/61 05/11/24 09:21 93 H 15 05/11/24 09:18 95 H 14 05/11/24 09:00 102/53 L 05/11/24 09:00 88 17 102/53 L 97 05/11/24 08:57 80 12 95 05/11/24 08:45 80 96 05/11/24 08:38 79 05/11/24 08:33 79 12 96 05/11/24 08:30 105/55 L 05/11/24 08:03 78 12 97 05/11/24 08:00 117/55 L 05/11/24 07:57 77 15 97 05/11/24 07:30 118/61 05/11/24 07:30 78 13 97 05/11/24 07:25 114/60 05/11/24 07:24 77 18 114/60 96 05/11/24 06:52 36.6 C 76 16 129/50 L 97 O2 Del Method 05/11/24 11:33 05/11/24 11:30 05/11/24 11:05 05/11/24 11:05 Room Air 05/11/24 11:00 05/11/24 10:51 05/11/24 10:45 05/11/24 10:33 05/11/24 10:30 05/11/24 10:18 05/11/24 10:15 05/11/24 10:00 05/11/24 09:36 05/11/24 09:33 05/11/24 09:30 05/11/24 09:26 05/11/24 09:21 05/11/24 09:18 05/11/24 09:00 05/11/24 09:00 Room Air 05/11/24 08:57 05/11/24 08:45 05/11/24 08:38 05/11/24 08:33 05/11/24 08:30 05/11/24 08:03 05/11/24 08:00 05/11/24 07:57 05/11/24 07:30 05/11/24 07:30 05/11/24 07:25 05/11/24 07:24 Room Air 05/11/24 06:52 Room Air Laboratory Results Abnormal lab results 05/11/24 05/11/24 Range/Units 07:10 07:18 RBC 3.61 L (4.20-5.40) M/uL POC Hgb 11.9 L (12.0-16.0) g/dl Hct 34.3 L (37.0-47.0) % POC Hct 35 L (37-47) % MPV 8.5 L (9.4-12.4) fL [place] # (Auto) 0.82 H (0.11-0.59) K/uL PT 15.6 H (9.0-12.0) Seconds INR 1.5 H (0.9-1.1) POC Sodium 134 L (135-144) mmol/L Sodium 134 L (136-145) mmol/L POC Potassium 3.0 L (3.3-5.0) mmol/L Potassium 3.1 L (3.5-5.1) mmol/L POC Total CO2 21 L (24-31) mmol/L Anion Gap 14 H (3-11) POC Anion Gap 14.0 L (16-25) mmol/L Calcium 8.1 L (8.6-10.3) mg/dl POC Ioniz Calcium Kar 0.83 L (1.12-1.32) mmol/l Magnesium 1.4 L (1.7-2.4) mg/dl Diagnostic Findings Chest X-Ray 05/11/24 06:56 XR chest 1V portable HISTORY: 64 years-old Female Chest pain, nonspecific COMPARISON: 05/05/2024 TECHNIQUE: AP view of the chest FINDINGS: Cardiomediastinal and hilar silhouettes are unchanged. Cervical spinal fusion hardware. Cholecystectomy. No pneumothorax, pleural effusion or airspace consolidation. The bones of the chest appear grossly intact. IMPRESSION: No acute process. ACT 112: Negative or not required by law. The above report was generated using voice recognition software. It may contain grammatical, syntax or spelling errors. Electronically signed by: Ashu Gusman M.D. 05/11/2024 7:57 AM Abdomen/Pelvis CT 05/11/24 07:37 CT SCAN OF THE ABDOMEN AND PELVIS WITH IV CONTRAST CLINICAL HISTORY: Generalized abdominal pain. Falls. COMPARISON STUDY: Abdominal CT dated 02/20/2024. TECHNIQUE: Following the IV administration of 94 cc of Optiray 320, CT scan of the abdomen and pelvis is performed from the lung bases to the proximal femora. Images are reviewed in the axial, sagittal, and coronal planes. IV contrast was administered without complication. A dose lowering technique was utilized adhering to the principles of ALARA. CT DOSE: 2704.03 mGy.cm FINDINGS: Lung bases: The heart is normal in size and without pericardial effusion. The mitral annulus is densely calcified. The lung bases are clear noting bibasilar scarring/atelectasis. Liver: The contrast-enhanced liver is cirrhotic in morphology and heterogeneous in attenuation. There is hypertrophy of the left lobe and nodularity of the surface contour. There is no intrahepatic biliary ductal dilatation. The hepatic veins and portal veins are patent. Gallbladder: Surgically absent noting clips in the gallbladder fossa. Spleen: Normal in size and attenuation. Pancreas: There are numerous parenchymal calcifications suggesting chronic pancreatitis. Adrenal glands: Unremarkable. Kidneys: The contrast enhanced kidneys are normal in size and without hydronephrosis. The kidneys enhance symmetrically. Abdominal vasculature: The abdominal aorta is normal in course and caliber noting moderate atherosclerotic calcification. Bowel: No bowel obstruction is seen. The appendix is well-visualized and normal. Peritoneum: There is no intraperitoneal free air or abdominal ascites. There is a tiny fat-containing umbilical hernia. Lymphadenopathy: None. Pelvic viscera: The bladder is normal as visualized. The uterus is surgically absent. No adnexal lesion is seen. Skeletal structures: The skeletal structures are osteopenic. There is moderate lumbosacral spondylosis. No lytic or blastic lesions are seen. IMPRESSION: 1. No acute infectious or inflammatory findings are identified in the abdomen or pelvis. 2. Cirrhotic liver morphology. 3. There is evidence of chronic pancreatitis. 4. Additional findings as above. ACT 112: Negative or not required by law. Electronically signed by: Keegan Caceres M.D. 05/11/2024 9:[address] 05/11/24 07:[address] WITH CONTRAST HISTORY: Acute chest and abdominal pain status post trauma pain, recurrent falls TECHNIQUE: Multiaxial CT images of the chest were performed following the IV administration of 94 cc of Optiray. A dose lowering technique was utilized adhering to the principles of ALARA. COMPARISON: CT abdomen and pelvis of same day, chest CT 02/20/2024 FINDINGS: Unremarkable thyroid. Partially calcified nonenlarged mediastinal and hilar lymph nodes compatible with prior granulomatous disease. The heart is upper limits of normal in size. No thoracic aortic aneurysm or dissection identified. No pulmonary emboli are seen. There is no pneumothorax, pleural effusion, airspace consolidation or pulmonary edema. Mild dependent subsegmental bibasilar atelectasis. No suspicious pulmonary nodules or masses. The central airways are patent. No acute upper abdominal abnormality. Cholecystectomy. Mild marginal nodularity of the liver suggestive of cirrhosis. Spleen measures up to 12 cm and demonstrates mild nonspecific heterogeneous enhancement. Unremarkable soft tissues. Partially imaged cervical spinal fusion hardware. Chronic appearing nondisplaced anterior rib fractures. No acute rib fracture identified. IMPRESSION: 1. No acute posttraumatic intrathoracic abnormality identified. 2. Cirrhotic liver. 3. Please refer to the same day CT abdomen and pelvis study for additional findings. ACT 112: Negative or not required by law. Electronically signed by: Ashu Gusman M.D. 05/11/2024 9:[address] 05/11/24 07:37 CT head/brain wo con CLINICAL HISTORY: 64 years-old Female with pain, recurrent falls. Acute head trauma status post fall TECHNIQUE: Multiple axial CT images of the head were obtained without contrast. A dose lowering technique was utilized adhering to the principles of ALARA. COMPARISON: Brain MRI 05/05/2024 FINDINGS: No acute intracranial hemorrhage, midline shift, intracranial mass, hydrocephalus, territorial ischemia or abnormal extra-axial collection. Involutional changes with chronic microvascular ischemic disease. Cerebral vascular calcifications. Prior right-sided craniotomy. The calvarium is intact. The paranasal sinuses, mastoid air cells, and middle ear cavities are clear. IMPRESSION: No acute intracranial abnormality. ACT 112: Negative or not required by law. The above report was generated using voice recognition software. It may contain grammatical, syntax or spelling errors. Electronically signed by: Ashu Gusman M.D. 05/11/2024 9:[address] 05/11/24 07:39 CT SCAN OF THE CERVICAL SPINE CLINICAL HISTORY: Falls. Neck pain. COMPARISON STUDY: CT of the cervical spine dated 01/30/2022. TECHNIQUE: CT scan of the cervical spine is performed from the skull base to the upper thoracic spine. Images are reviewed in the axial, sagittal, and coronal planes. IV contrast was not administered for this examination. A dose lowering technique was utilized adhering to the principles of ALARA. FINDINGS: Skeletal structures: The skeletal structures are osteopenia. There is no evidence of fracture or subluxation involving the cervical spine. Vertebral body height and alignment are maintained. There is postsurgical change from anterior fusion seen at C4-C7. There is straightening of cervical lordosis. The odontoid process and lateral masses are intact. The atlantoaxial articulation is preserved noting mild productive degenerative change. The spinous processes appear intact. There is multilevel facet arthropathy. Intervertebral discs: There is discectomy at C4-C5, C5-C6, and C6-C7. Moderate disc space narrowing is noted at C7-T1. Central canal: Grossly patent. Soft tissues: The prevertebral and paraspinous soft tissues are within normal limits. Atherosclerotic calcification is noted in the carotid bulbs. Sialoliths are noted in the parotid glands. Calvarium: The visualized calvarium at the skull base appears intact. Brain parenchyma: Partially visualized brain parenchyma at the skull base is within normal limits. Sinuses and mastoids: The visualized paranasal sinuses are clear. The mastoid air cells are well pneumatized. Lung apices: Clear as visualized. IMPRESSION: 1. There is no evidence of fracture or subluxation involving the cervical spine. 2. Osteopenia with postsurgical and degenerative change as above. ACT 112: Negative or not required by law. Electronically signed by: Keegan Caceres M.D. 05/11/2024 9:02 AM ECG Additional Comments: ECG revealed NSR at 77 bpm; QTc 477 Code Status & VTE Plan Code Status Full code (discussed with both patient and patient's /POA at the bedside; she does have a medical power of thermometer tester form present signed in 2006 that states that if the patient is in a permanent state of unconsciousness she would not want life-prolonging measures; however, the both the patient and the patient's /POA are clear that she would want CPR/defibrillation/intubation in her current state if those measures were needed) VTE Prophylaxis Plan VTE Prophylaxis will be ordered: Yes Supervising Physician Co-Signing Physician Notes I personally saw and examined the patient. I independently reviewed the labs, EKG, imaging, problem list, medication list, past medical history and family history. I verified all rachel points and agree with Charan Nicole PA-C with the following exceptions and/or additions: 64 year old female presents to the ER with ongoing falls. She is unable to tell me any deficits from her recent stroke. No fever or chills. O/E HS RRR, no murmurs, Chest CTAB, Abdo SNT A/P Recurrent falls - suspected secondary to recent CVA with benzodiazepine and opiate use, PT/OT, likely need for placement PG Care Time/CCT Total # of Minutes Spent Total Time Spent with Patient: Total time spent is greater than 50% in coordination of care (as documented) at patient's floor/unit and/or counseling patient: Coding [place] [address] INT INP/OBS CARE MIN Patient Type Established Medical Decision Making High Complexity Diagnoses Recurrent falls R29.6 Hypomagnesemia E83.42 Hypokalemia E87.6 Chronic hyponatremia E87.1 History of CVA (cerebrovascular accident) Z86.73
--- OUTSIDE RECORDS SUMMARY | 2024-05-11 12:03 | External Medical Summary | Continuity of Care Document ---
Author Name Unknown Organization [facility] [place] [id number] [place] [id number] Address [address] [place] [id number] Care Team Providers Care Accident Examiner Name Role Phone Swetha Newberry Primary Care P justino [phone] Encounter [facility] [id number] Date(s): 05/05/24 - 05/05/24 [facility] 0 [address] [facility] [address] [address] [place] [id number] Encounter Diagnosis Headache(Discharge Diagnosis) - 05/06/24 Dizziness(Discharge Diagnosis) - 05/06/24 Arthritis of both knees(Discharge Diagnosis) - 05/06/24 Discharge Disposition: Home or Self Care Attending Physician: MD Torres Jesse Allergies, Adverse Reactions, Alerts Substance Criticality Severity Reaction Reaction Severity Status Rexulti feeling unstable Act milan gabapentin confusion Active Abilify seizure activity Act milan Allergy Not found in Search 1 watery eyes Sneezing Active 1Seasonal allergies Assessment and Plan Extracted from: Title:Follow Up Visit Author:MD Dove Daniel Date:05/06/24 1.Headache 2.Dizziness Patient's new onset frontal headache and dizziness after recent hospital discharge for ischemic stroke, with newly documented decreased sensation of V1 and V2 on the right, along with worseningorientation compared to previous inpatient documentation, represents a new focal neurologic deficit, and recommended patient be evaluated in ED. Will postpone Euflexxa injection today, and discussed that patient can reschedule once she has been evaluatedand discharged from ED/hospital. I called ED to give report to patient, and patient's partner decided she will drive patient across the street to the ED. 3.Arthritis of both knees Postpone Euflexxa #2, can complete these after hospital discharge and PCP follow-up. Immunizations Given and Recorded Vaccine Date Status [...] for pain Start Date: 02/07/22 Status: Ordered atorvastatin 40 mg oral tablet Start: 05/07/24 3:30:00 PM EDT, 30 each, 0 Refill(s), TAKE 1 TABLET BY MOUTH DAILY IN THE MORNING Start Date: 05/07/24 Status: Ordered BuSpar Dividose 30 mg oral [...] bid, Disp# 180 tab, Refills: 3, Pharmacy: [facility] Start Date: 04/23/24 Status: Ordered diazePAM [...] q7days, Disp# 12 tab, Refills: 3, Pharmacy: [facility] Start Date: 12/17/23 Status: Ordered losartan [...] minutes until patient responds, PRN: sedation, Pharmacy: [facility] Start Date: 04/23/24 Status: Ordered Neuriva Brain performance Plus Start: 12/17/23 3:01:00 PM EDT Start Date: 12/17/23 Status: Ordered nystatin 100,000 units/g topical cream Start: 09/10/23 12:55:00 PM EST, See Instructions, Disp# 30 g, Refills: 5, apply to affected area twice daily, Pharmacy: [facility] Start Date: 09/10/23 Status: Ordered omeprazole 40 mg oral delayed release capsule Start: 12/24/23 11:51:00 AM EDT, See Instructions, Disp# 90 cap, Refills: 3, TAKE 1 CAPSULE BY MOUTH ONCE DAILY, Pharmacy: [facility] Start Date: 12/24/23 Status: Ordered oxyCODONE 5 mg oral tablet Start: 04/30/24 9:22:00 AM EDT, 5 mg =, PO, q6h, Disp# 28 tab, Refills: 0, PRN: as needed for pain, Pharmacy: [facility] Start Date: 04/30/24 Status: Ordered potassium chloride Start: 12/17/23 3:01:00 PM EDT Start Date: 12/17/23 Status: Ordered rizatriptan 10 mg oral tablet Start: 12/24/23 11:44:00 AM EDT, See Instructions, Disp# 9 tab, Refills: 0, 1 tab PO STAT with onset of headache may repeat dose once in 2 hours MDD 2 tablets, Pharmacy: [facility] Start Date: 12/24/23 Status: Ordered sodium bicarbonate Start: 12/24/23 10:55:00 AM EDT, 2000mg Start Date: 12/24/23 Status: Ordered traZODone 150 mg oral tablet Start: 08/07/22 2:18:00 PM EST, 1 tab, PO, qhs, as needed--orderd from [facility] Start Date: 08/07/22 Status: Ordered Mental Status 05/05/24 Barriers to Learning one year None evide nt Mandatory Health Literacy Documentation Yes Health Literacy Communication Barriers N ever Primary Language Irish Problem List Condition Confirmation Course Effective Dates [...] Dates Health Status Cl inical Service Informant Headache Discharge Diagnosis 05/06/24 Non-Specified Dizziness Discharge Diagnosis 05/06/24 Non-Specified Arthritis of both knees Discharge Diagnosis 05/06/24 Non-Specified Procedures Procedure Date Related Diagnosis Body Site Status EGD - esophagogastroduodenos copy 1, 2, 3 02/26/24 Completed Mammogram 4 02/09/24 Completed Colonoscopy 5, 6, 7 12/01/23 Compl eted Knee 8 08/05/23 Completed Radio-frequency ablation system 9 10/30/22 Completed Arthroscopic shoulder procedure Completed [place] hole 10 Completed Carpal tunnel Completed Cervical [...] office. 4one year follow up done at [facility] 5Repeat colonoscopy in 10 years. 6A) Colon, [...] yr Sex Female Sex Representation Female (finding) Ortho Outpt Note * DO Ramirez Mehwish: MODIFY DO Ramirez Mehwish: MODIFY Event Display: Ortho Outpt Note Authored Date: [id number] Chief Complaint bilateral euflexxa #2 Primary Care Provider Maia Prakash DO, Mariana Annette Subjective Juhi Rivas is [id number] who presents to sports medicine clinic for second of series of Euflexxa injections. She postponed this injection after being hospitalized for an ischemic stroke last week. She presents with her partner, and does not feel well this morning, with new frontal headache, and notes constant dizziness. Partner notes they were considering going to ED instead of appointment. Patient and her partner were unsure what was the cause of her stroke, and noted there was a change in her BP medication from metoprolol to carvedilol. Patient was unable to recall some of the timeframe of her symptoms, and looked to partner to answermany questions. Patient denies changes to vision or hearing, vertigo, changes to weakness, numbness, tingling. Objective Physical Exam appears confused, no apparent distress alert and oriented to person, place, and day but not month or year mild receptive aphasia, no expressive aphasia, withoutdysarthria CN: decreased sensation right V1 and V2, otherwise EOMI, symmetric smile, symmetric shrug,tongue midline, motor: 5/5 BUE, BLE sensation: sensation intact to light tough upper and lower extremity bilaterally Assessment/Plan 1.Headache 2.Dizziness Patient's new onset frontal headache and dizziness after recent hospital discharge for ischemic stroke, with newly documented decreased sensation of V1 and V2 on the right, along with worseningorientation compared to previous inpatient documentation, represents a new focal neurologic deficit, and recommended patient be evaluated in ED. Will postpone Euflexxa injection today, and discussed that patient can reschedule once she has been evaluatedand discharged from ED/hospital. I called ED to give report to patient, and patient's partner decided she will drive patient across the street to the ED. 3.Arthritis of both knees Postpone Euflexxa #2, can complete these after hospital discharge and PCP follow-up. Attestation I was present with fellow during rachel portions of the history and physical exam. I discussed the case with Dr. Dove and agree with the findings and plan, as documented in the fellow's note. - Dr. Arcelia Ramirez DO CAQSM Electronic Signature on File CC: Swetha Prakash DO [address] [place] [address] Electronically Reviewed/Signed by: Rajat Dove MD Author Signature Dt/Tm:05/06/2024 09:29 AM Resident Division of Sports Medicine Electronically Reviewed/Signed by: Arcelia Ramirez DO Cosigner Signature Dt/Tm: 05/06/2024 01:05PM Division of Sports Medicine DS Patient Care team information Care Team Personnel Name: Maia Prakash DO, Mariana Annette Position: Physician - Family Med Member Role: Primary Care Provider Address: [address] [place] [address] [place] Care Team Related Persons Name: ZONIA NOVAK
--- OUTSIDE RECORDS SUMMARY | 2024-05-11 12:03 | External Medical Summary | Continuity of Care Document ---
Author Name Unknown Organization [address] Address [address] [place], [place] [id number] Care Team Providers Care Imaging Nurse Name Role Phone Swetha Newberry Primary Care P justino [phone] [facility] [id number] Date(s): 05/05/24 - 05/05/24 EXT [facility] [address] [place], [place] [id number] [place] Discharge Disposition: Home or Self Care Attending Physician: MD oCrey, Kevin Gandhi Referring Physician: MD Shivani, Richard Boss Allergies, Adverse Reactions, Alerts Substance Criticality Severity Reaction Reaction Severity Status Allergy Not found in Search 1 watery eyes Sneezing Active Rexulti feeling unstable Act milan gabapentin confusion Active Abilify seizure activity Act milan 1Seasonal allergies Immunizations Given and Recorded Vaccine Date Status [...] bid, Disp# 180 tab, Refills: 3, Pharmacy: [facility] Start Date: 04/23/24 Status: Ordered diazePAM 5 [...] q7days, Disp# 12 tab, Refills: 3, Pharmacy: [facility] Start Date: 12/17/23 Status: Ordered losartan 25 [...] minutes until patient responds, PRN: sedation, Pharmacy: [facility] Start Date: 04/23/24 Status: Ordered Neuriva Brain performance Plus Start: 12/17/23 3:01:00 PM EDT Start Date: 12/17/23 Status: Ordered nystatin 100,000 units/g topical cream Start: 09/10/23 12:55:00 PM EST, See Instructions, Disp# 30 g, Refills: 5, apply to affected area twice daily, Pharmacy: [facility] Start Date: 09/10/23 Status: Ordered omeprazole 40 mg oral delayed release capsule Start: 12/24/23 11:51:00 AM EDT, See Instructions, Disp# 90 cap, Refills: 3, TAKE 1 CAPSULE BY MOUTH ONCE DAILY, Pharmacy: [facility] Start Date: 12/24/23 Status: Ordered oxyCODONE 5 mg oral tablet Start: 04/30/24 9:22:00 AM EDT, 5 mg =, PO, q6h, Disp# 28 tab, Refills: 0, PRN: as needed for pain, Pharmacy: [facility] Start Date: 04/30/24 Status: Ordered potassium chloride Start: 12/17/23 3:01:00 PM EDT Start Date: 12/17/23 Status: Ordered rizatriptan 10 mg oral tablet Start: 12/24/23 11:44:00 AM EDT, See Instructions, Disp# 9 tab, Refills: 0, 1 tab PO STAT with onset of headache may repeat dose once in 2 hours MDD 2 tablets, Pharmacy: [facility] Start Date: 12/24/23 Status: Ordered sodium bicarbonate Start: 12/24/23 10:55:00 AM EDT, 2000mg Start Date: 12/24/23 Status: Ordered traZODone 150 mg oral tablet Start: 08/07/22 2:18:00 PM EST, 1 tab, PO, qhs, as needed--orderd from [facility] Start Date: 08/07/22 Status: Ordered Problem List Condition Confirmation Course Effective Dates [...] urgency Confirmed Active Weight loss Confirmed Active Procedures Procedure Date Related Diagnosis Body Site Status EGD - esophagogastroduodenos copy 1, 2, 3 02/26/24 Completed Mammogram 4 02/09/24 Completed Colonoscopy 5, 6, 7 12/01/23 Compl eted Knee 8 08/05/23 Completed Radio-frequency ablation system 9 10/30/22 Completed Arthroscopic shoulder procedure Completed [place] hole 10 Completed Carpal tunnel Completed Cervical [...] office. 4one year follow up done at [facility] 5Repeat colonoscopy in 10 years. 6A) Colon, [...] yr Sex Female Sex Representation Female (finding) Patient Care team information Care Team Personnel Name: Maia Prakash DO, Mariana Annette Position: Physician - Family Med Member Role: Primary Care Provider Address: [address] [place] [id number] [place] Care Team Related Persons Name: ZONIA NOVAK
[2024-05-11 12:54] LABS: Appearance Urine Clear (Clear); Bilirubin Urine Negative (Negative); Blood Urine Negative (Negative); Color Urine Yellow; Glucose Urine UA Negative (Negative); Ketones Urine Trace (Negative); Leukocyte Esterase Urine Negative (Negative); Nitrite Urine Negative (Negative); Protein Urine Negative (Negative); Specific Gravity Urine 1.023 (1.000-1.030); Urobilinogen Urine Negative (Negative); pH Urine 5.5 (4.5-7.5)
[2024-05-11 13:30] LABS: Influenza A virus by PCR Negative (Neg); Influenza B virus by PCR Negative (Neg); RSV by PCR Negative (Neg); SARS CoV2 RNA(COVID-19) Ceph NEGATIVE (Negative)
[2024-05-11] MEDS ORDERED: traZODone HCL 50 MG TAB PO PRN (14:40)
[2024-05-11] MEDS ORDERED: FLUoxetine HCL 20 MG CAP PO SCH (14:40)
[2024-05-11] MEDS: FLUoxetine HCL 20 MG CAP PO SCH (15:44)
[2024-05-11] MEDS: ASPIRIN 81 MG ECTAB PO SCH (15:45)
[2024-05-11] MEDS: ATORVASTATIN 40 MG TAB PO SCH (15:45)
[2024-05-11] MEDS: PANTOprazole 40 MG TAB PO SCH (15:46)
[2024-05-11 16:56] LABS: BUN Creatinine Ratio 10.3 (10-20); Calcium 7.7 mg/dl (8.6-10.3); Creatinine Clr Calc Pharmacy 52.1 ml/min; Est GFR (African American) 63.1 ml/min; Est GFR (Non-African American) 54.4 ml/min; Magnesium 2.6 mg/dl (1.7-2.4); Potassium 3.8 mmol/L (3.5-5.1)
--- NOTE | 2024-05-11 20:54 | Electrocardiogram Report ---
Test Reason : Blood Pressure : */* mmHG Vent. Rate : 77 BPM Atrial Rate : 77 BPM P-R Int : 162 ms QRS Dur : 78 ms QT Int : 422 ms P-R-T Axes : 30 44 -79 degrees QTcB Int : 477 ms Normal sinus rhythm Prolonged QT Abnormal ECG When compared with ECG of 05-May-2024 15:49, Questionable change in QRS axis T wave inversion now evident in Inferior leads T wave inversion now evident in Anterior leads Confirmed by Jorge Alberto Packer ([id number]) on 05/11/2024 8:53:48 PM Referred By: REFERRED SELF Confirmed By: Jorge Alberto Packer
[2024-05-11] MEDS: oxyCODONE HCL IR 5 MG TAB (IMMEDIATE RELEASE) PO PRN (21:00)
[2024-05-11] MEDS: carvediloL 3.125 MG TAB PO SCH (21:01)
[2024-05-11] MEDS: busPIRone 15 MG TAB PO SCH (21:02)
[2024-05-11] MEDS: SODIUM CHLORIDE 1 GM TABLET PO SCH (21:02)
[2024-05-11] MEDS: LOSARTAN POTASSIUM 25 MG TAB PO SCH (21:02)
[2024-05-12 06:29] LABS: Hematocrit (blood only) 34.8 % (37.0-47.0); Hemoglobin 11.8 g/dl (12.0-16.0); Mean Corpuscular Hemoglobin 33.2 pg (25.0-34.0); Mean Corpuscular Hgb Conc 33.9 g/dL (32.0-36.0); Mean Platelet Volume 8.7 fL (9.4-12.4); Platelet Count 132 K/uL (130-400); RDW Coefficient of Variation 13.4 % (11.5-14.5); Red Blood Count 3.55 M/uL (4.20-5.40); White Blood Count 4.53 K/ul (4.8-10.8)
[2024-05-12 06:44] LABS: BUN Creatinine Ratio 11.3 (10-20); Calcium 7.7 mg/dl (8.6-10.3); Creatinine Clr Calc Pharmacy 57.5 ml/min; Est GFR (Non-African American) 61.3 ml/min; Magnesium 2.3 mg/dl (1.7-2.4)
[2024-05-12] MEDS ORDERED: RIZATRIPTAN BENZOATE MLT 10 MG TAB PO PRN (12:09)
--- NOTE | 2024-05-12 12:22 | Hospitalist Progress Note ---
Date of Service May 12, 2024 Assessment & Plan (1) Recurrent falls: Plan: Multiple unwitnessed falls on the evening of 05/10 Patient does not remember falling; she is unsure if she hit her head; denies LOC Ambulates with a walker at baseline Head/neck imaging without acute abnormalities on arrival A/P/chest CT without acute findings on arrival Afebrile without leukocytosis; elevated WBC from prior may be secondary to recent steroid taper prescribed on 05/06; d/c prednisone Urine culture revealed diphtheroids, no antibiotic treatment needed PT/OT evaluations appreciated, recommending short-term rehab. Patient is agreeable to this. (2) Hypomagnesemia: Plan: Mag 1.4 on arrival, repleted and augmented appropriately (3) Hypokalemia: Plan: Mild; K 3.1 on arrival, repleted and augmented appropriately (4) Chronic hyponatremia: Plan: Chronic; sodium 134 on arrival Continue sodium tablets BID (5) History of CVA (cerebrovascular accident): Plan: Left lacunar infarct on brain MRI 04/27/2024 Clinically, patient denies facial droop, slurred speech, or unilateral deficits within the past 24 hours Continue aspirin and statin Plan Updated at bedside Counseled patient on importance of rehab following this hospitalization Ordered urine culture Disposition: Obs -admit to [facility] Full code Regular diet VTE PPx: SCDs in the setting of acute head trauma; platelets okay at 152 on arrival; please add on chemical DVT PPx if extended stay Admission and Anticipated Discharge Date Admission Date: May 11, 2024 Subjective Patient seen and evaluated at bedside with present. She reports feeling very weak and fatigued. She further notes multiple falls at home secondary to generalized weakness since her discharge from the hospital. She was initially hesitant to rehab, but is now agreeable if it is what PT/OT recommend. She also notes decreased appetite which has been going on for quite some time now. We discussed trying Remeron for appetite stimulation, she is agreeable. Will check her other home medications to see if this is an option to add. We further discussed the results of her imaging and workup from admission. All questions and concerns were answered. No additional complaints at this time. Physical Exam Physical Exam: General: No acute distress, nondiaphoretic, frail and chronically ill-appearing. Skin: The skin was without rashes, erythema, edema, or bruising. Cardiac: Regular rate and rhythm without murmurs gallops or rubs. Pulm: Clear to auscultation bilaterally without wheezes, rales or rhonchi. No respiratory distress. 97% on room air. Abdominal: Soft, nontender, nondistended. Bowel sounds present. Neuro: A&O x3. No focal neurological deficits. Results & Data Results & Data Vital Signs (Past 12 Hours) Vital Signs Temp Pulse Resp BP Pulse Ox O2 Del Method 05/12/24 07:51 97.7 F 68 14 101/68 95 Room Air Laboratory Results Reviewed CBC Reviewed BMP Diagnostic Findings Reviewed C-spine CT Reviewed head CT Reviewed chest CT Reviewed abdomen/pelvis CT Reviewed chest x-ray PG Care Time/CCT Total # of Minutes Spent Total Time Spent with Patient: Total time spent is greater than 50% in coordination of care (as documented) at patient's floor/unit and/or counseling patient: Coding Level of Care Code 98576 SUB INP/OBS CARE 3/50MIN Diagnoses Recurrent falls R29.6 Hypomagnesemia E83.42 Hypokalemia E87.6 Chronic hyponatremia E87.1 History of CVA (cerebrovascular accident) Z86.73
[2024-05-12] MEDS: MELATONIN 3 MG TAB PO PRN (21:07)
[2024-05-13 07:42] VITALS: BP 100/66; PULSE 64; RESP 20; TEMP 98.6; O2SAT 96
[2024-05-13 08:01] LABS: Hematocrit (blood only) 33.1 % (37.0-47.0); Hemoglobin 11.1 g/dl (12.0-16.0); Mean Corpuscular Hemoglobin 33.3 pg (25.0-34.0); Mean Corpuscular Hgb Conc 33.5 g/dL (32.0-36.0); Mean Corpuscular Volume 99.4 fL (80.0-100.0); Mean Platelet Volume 8.6 fL (9.4-12.4); Platelet Count 140 K/uL (130-400); RDW Coefficient of Variation 13.6 % (11.5-14.5); RDW Standard Deviation 49.8 fL (36.4-46.3); Red Blood Count 3.33 M/uL (4.20-5.40); White Blood Count 4.73 K/ul (4.8-10.8)
--- NOTE | 2024-05-13 08:49 | Hospitalist Progress Note ---
Date of Service May 13, 2024 Assessment & Plan (1) Recurrent falls: Plan: Presented after multiple unwitnessed falls on the evening of 05/10 - Does not remember falling; she is unsure if she hit her head; denies LOC - Ambulates with a walker at baseline - Head/neck imaging without acute abnormalities on arrival - A/P/chest CT without acute findings on arrival - Afebrile without leukocytosis; elevated WBC from prior may be secondary to recent steroid taper prescribed on 05/06; d/c prednisone - Urine culture pending. - PT/OT evaluations appreciated, recommending short-term rehab. Patient is agreeable to this. Referral made to [facility]. (2) Chronic hyponatremia: Plan: Chronic; sodium 134 on arrival - Continue sodium tablets BID Hypomagnesemia - Mag 1.4 on arrival, repleted and augmented appropriately Hypokalemia - Mild; K3.1 on arrival, repleted and augmented appropriately (3) History of CVA (cerebrovascular accident): Plan: Left lacunar infarct on brain MRI 04/27/2024 Clinically, patient denies facial droop, slurred speech, or unilateral deficits within the past 24 hours Continue aspirin and statin (4) Depression: Plan: Patient takes buspirone 30 mg PO BID, fluoxetine 60 mg PO daily, diazepam 5 mg PO BID PRN for anxiety, trazodone 225 mg PO HS PRN for insomnia, and oxycodone 7.5 mg Q6H PRN for pain - Patient and note patient has decreased appetite in recent months, which could definitely be contributing to her generalized weakness - Started Remeron 15 mg PO HS - monitor tolerance while inpatient given other scheduled/PRN medications Plan Started Remeron Discussed discharge planning with case management Dispo: Continue inpatient hospitalization while awaiting rehab placement CODE STATUS: Full code VTE PPx: SCDs in setting of low normal platelets Admission and Anticipated Discharge Date Admission Date: May 11, 2024 Physical Exam Physical Exam: General: No acute distress, nondiaphoretic, frail and chronically ill-appearing. Skin: The skin was without rashes, erythema, edema, or bruising. Cardiac: Regular rate and rhythm without murmurs gallops or rubs. Pulm: Clear to auscultation bilaterally without wheezes, rales or rhonchi. No respiratory distress. 96% on room air. Abdominal: Soft, nontender, nondistended. Bowel sounds present. Neuro: A&O x3. No focal neurological deficits. Results & Data Results & Data Vital Signs (Past 12 Hours) Vital Signs Temp Pulse Resp BP Pulse Ox O2 Del Method 05/13/24 07:41 98.6 F 64 20 100/66 96 Room Air Laboratory Results Reviewed CBC Reviewed BMP PG Care Time/CCT Total # of Minutes Spent Total Time Spent with Patient: Total time spent is greater than 50% in coordination of care (as documented) at patient's floor/unit and/or counseling patient: Coding Diagnoses Recurrent falls R29.6 Chronic hyponatremia E87.1 History of CVA (cerebrovascular accident) Z86.73 Depression F32.A
[2024-05-13 10:04] LABS: Calcium 7.9 mg/dl (8.6-10.3); Magnesium 1.9 mg/dl (1.7-2.4)
[2024-05-13 10:10] LABS: BUN Creatinine Ratio 16.9 (10-20); Creatinine Clr Calc Pharmacy 72.4 ml/min; Est GFR (African American) 93.9 ml/min
--- NOTE | 2024-05-13 11:44 | Discharge Summary ---
Discharge Summary Date of Service May 13, 2024 Principal Dx & Hospital Course #1 = Principal Diagnosis (1) Recurrent falls: Presented after multiple unwitnessed falls on the evening of 05/10 - Does not remember falling; she is unsure if she hit her head; denies LOC - Ambulates with a walker at baseline - Head/neck imaging without acute abnormalities on arrival - A/P/chest CT without acute findings on arrival - Afebrile without leukocytosis; elevated WBC from prior may be secondary to recent steroid taper prescribed on 05/06; d/c prednisone - Urine culture pending. - PT/OT evaluations appreciated, recommending short-term rehab. Discharge to [facility] on 05/13/2024. (2) Chronic hyponatremia: Chronic; sodium 134 on arrival - Continue sodium tablets BID Hypomagnesemia - Mag 1.4 on arrival, repleted and augmented appropriately Hypokalemia - Mild; K3.1 on arrival, repleted and augmented appropriately (3) History of CVA (cerebrovascular accident): Left lacunar infarct on brain MRI 04/27/2024 Clinically, patient denies facial droop, slurred speech, or unilateral deficits within the past 24 hours Continue aspirin and statin (4) Depression: Patient takes buspirone 30 mg PO BID, fluoxetine 60 mg PO daily, diazepam 5 mg PO BID PRN for anxiety, trazodone 225 mg PO HS PRN for insomnia, and oxycodone 7.5 mg Q6H PRN for pain - Patient and note patient has decreased appetite in recent months, which could definitely be contributing to her generalized weakness - Started Remeron 15 mg PO HS - monitor tolerance while inpatient given other scheduled/PRN medications Plan CODE STATUS: Full code VTE PPx: SCDs in setting of low normal platelets Notes For Next Care Provider Patient was admitted after multiple unwitnessed falls at home. All imaging was negative for acute processes (of note, chronic pancreatitis and cirrhotic liver morphology was noted). UA was negative, but urine culture is still pending on discharge to evaluate for acute UTI. Patient has been experiencing decreased appetite for several months, which may be contributing to her generalized weakness causing her falls, so Remeron 15 mg at bedtime was started. She does take scheduled buspirone and fluoxetine, as well as as needed diazepam, trazodone, and oxycodone. She was agreeable to rehab and discharged to [facility]. Recommend PCP follow-up in 1 week after discharge from [facility]. Medication Changes From Visit Started Remeron 15 mg p.o. at bedtime Admission HPI Per Admitting Provider Nury is a 64-year-old female with PMH of chronic pancreatitis, COPD, alcoholism, frequent falls, spinal stenosis, episodes of staring/speech arrest, incontinence, and chronic hyponatremia. She presented on 05/11 for multiple falls overnight. Patient's /POA (Mamta) is at bedside and provides additional history. The patient reports she does not remember falling last night. She is unsure if she felt dizzy or lightheaded before she fell, however she denies loss of consciousness. She believes she fell while using her walker in the bathroom, then fell again when she tried to stand up. At first she denies head strike, but believes she might of hit her head/back the first time she fell, and her tailbone the second time she fell. Patient's reports that she does have a history of recurrent falls, with the last fall being about a week ago. Whenever she falls, reports that she usually "crumbles" to the ground. Patient took Valium and oxycodone 7.5 mg this morning at 6 AM this morning for pain. She does not take her regular morning medications. reports that there has been a gradual decline in lower extremity strength recently. No history of syncope. Patient does endorse loss of appetite. She recently had her diarrhea resolved, that have been ongoing since September; reports norovirus. She also recently completed treatment for UTI. Patient does have a history of stroke, however denies slurred speech, facial droop, or unilateral deficits last night. Patient's believes there may have been a mild facial droop this morning, however it is unclear. History of TBI years ago, and patient has had "shuffling feet" which can lead to ambulatory dysfunction and falls. Recent hospital admission for strokelike symptoms and weakness with discharge on 05/06; patient was discharged on a prednisone taper and home PT services; reports it was prescribed as patient was having migraines. However, patient's reports she does not feel that home PT has been enough for her given generalized weakness. Patient denies smoking, tobacco use, recent alcohol use. No burning with urination or UTI symptoms. Patient is mildly hypotensive at 95/56 at time of admission; vitals otherwise stable. ED course: K rider 10mEq x 4 Potassium chloride 40mEq p.o. Magnesium sulfate 1 g IV x 2 NSS 1000 mL IV ROS: Patient endorses headache, ongoing blurry vision, generalized fatigue, and leg weakness. Patient denies fever, chills, night-sweats, dizziness/lightheadedness, slurred speech, facial droop, unilateral deficits, chest pain, chest palpitations, SOB, cough, abdominal pain, N/V/D, changes in urinary/bowel habits, or numbness/tingling in the arms or legs. Admission Exam Per Admitting Provider General: no acute distress; pleasant affect; non-toxic appearing; well- nourished; cooperative; SpO2 97% on RA HEENT: normocephalic, atraumatic; no scleral icterus; PERRLA w/ EOMs intact; vision intact; hard of hearing; patient demonstrates ability to raise eyebrows, smile, and frown without unilateral deficits; patient demonstrates ability to protrude and wiggle tongue bilaterally without deficits Neck: supple; no lymphadenopathy; trachea midline Skin: Pallor; warm, dry without signs of tenting; no cyanosis; no rashes, bruising, lesions, or erythema noted CV: chest wall NTP; RRR; S1/S2 normal; no murmurs/rubs/gallops; pulses intact and symmetric at radial, DP, and PT Lungs: no acute respiratory distress; symmetrical chest wall expansion; clear breath sounds across all lung gimenez w/o adventitious sounds; no wheezing ABD: Soft, NTP; BS present; no rebound/guarding; no distention MSK: no tics or fasciculations; no edema noted in the LEs b/l, nonerythematous; 5/5 urologist physician strength bilaterally; 3/5 strength in the lower extremities bilaterally when lifting legs supine from the bed Neuro: A&Ox3; normal mood and affect; fluent speech; no focal deficits; sensation intact and symmetric in the face/UEs/LEs bilaterally l; negative pronator drift; Discharge Exam General: No acute distress, nondiaphoretic, frail and chronically ill-appearing. Skin: The skin was without rashes, erythema, edema, or bruising. Cardiac: Regular rate and rhythm without murmurs gallops or rubs. Pulm: Clear to auscultation bilaterally without wheezes, rales or rhonchi. No respiratory distress. 96% on room air. Abdominal: Soft, nontender, nondistended. Bowel sounds present. Neuro: A&O x3. No focal neurological deficits. Discharge Plan Discharge Items Patient Disposition: Transfer Inpatient Rehab Fac Reason For Visit: recurrent falls Discharge Diagnosis: Recurrent falls secondary to generalized weakness Activity: Resume your previous activity Non-emergency contact: Primary Care Provider Call non-emergency contact if: you have any medication questions and your symptoms worsen Follow-up/Referrals: Swetha Newberry DO [Primary Care Provider] - (Follow-up 1 week after discharge from [facility]) Diet: Regular Addtl Attending Provider Instructions: Nury, You were admitted to the hospital after multiple falls at home. The imaging you had done on admission, which included CT scans of your head, cervical spine, chest, abdomen and pelvis, and a chest x-ray, were unremarkable for an acute process. Your urine dipstick was negative, but your urine culture is pending to evaluate for an acute urinary tract infection. You also had some electrolyte abnormalities on admission, which were repleted and within normal limits at this time. Due to your decreased appetite in recent months, you have been started on Remeron to help with appetite stimulation. Given your other medications including scheduled buspirone and fluoxetine, as well as as needed diazepam, trazodone, and oxycodone, monitor how Remeron affects you and let someone from your medical team know if you experience nausea, vomiting, blurred vision, changes in your bowel habits, tremors, racing heart rate, or fever/chills. There have been no other medication changes during this hospitalization. You can continue your other home medications as prescribed. Please follow-up with your PCP 1 week after discharge from [facility]. It was a pleasure taking care of you while you were in the hospital, Natasha Goodman PA-C Pending Studies at Discharge: Yes Studies:: Urine culture Stand-Alone Forms: My [facility] Skilled Items Patient informed of condition?: Yes DNR: No Discharge Level of Care: Acute rehab Communicable Disease: No Discharge Prognosis: Stable Lines: None Urinary Catheter: No Medications and DC Order Prescriptions: New mirtazapine 15 mg Tablet 15 mg PO HS Qty: 30 0RF Continued calcium carbonate-vitamin D3 [Calcium 600 with Vitamin D3] 600 mg-12.5 mcg (500 unit) capsule 2 cap PO QAM Hold Instructions: SURGERY nystatin 100,000 unit/gram cream 1 applic topical UD PRN (Reason: Skin Irritation) losartan 25 mg tablet 25 mg PO BID rizatriptan 10 mg tablet,disintegrating 10 mg PO DIRECTED MDD 3 DOSES/24 HOURS PRN (Reason: Migraine Headache) Rx Instructions: TAKE 10 MG AT ONSET OF YEPEZ, THEN REPEAT IN 2 HOURS IF NEEDED. MAX 3 DOSES/24 HOURS. omeprazole 40 mg capsule,delayed release(DR/EC) 40 mg PO DAILY alendronate 35 mg tablet 35 mg PO WK Rx Instructions: Pt usually takes on Friday mornings, but forgot to take it on 04/25/24 so she took it on the morning of 04/26/24 buspirone 30 mg tablet 30 mg PO BID diazepam 5 mg tablet 5 mg PO BID PRN (Reason: Anxiety) Centrum Women 18-400 mg-mcg Tablet 1 tab PO QAM Hold Instructions: SURGERY clotrimazole 2 % cream 1 appful topical UD PRN (Reason: Vaginal Dryness) sodium chloride 1,000 mg tablet,soluble 1,000 mg PO BID prednisone 20 mg tablet 20 mg PO DAILY 6 Days Qty: 6 0RF Rx Instructions: You are to taper the prescription over the next 6 days as follows: 60 mg (3 tablets) daily x 2 days; 40 mg (2 tablets) daily x 2 days; 20 mg (1 tablet) daily x 2 days then stop. As of 05/11/24 pt has 2 doses left of 20mg daily fluoxetine 40 mg capsule See Rx Instructions .ROUTE .COMPLEX Rx Instructions: Take 40mg w/ 20mg every morning to equal 60mg carvedilol 3.125 mg tablet 3.125 mg PO BID trazodone 150 mg tablet 225 mg PO HS PRN (Reason: Insomnia) fluoxetine 20 mg capsule See Rx Instructions .ROUTE .COMPLEX Rx Instructions: Take 20mg w/ 40mg every morning to equal 60mg oxycodone 5 mg tablet 7.5 mg PO Q6H PRN (Reason: Pain) atorvastatin 40 mg Tablet 40 mg PO QAM Qty: 30 0RF aspirin 81 mg Tablet,Delayed Release (Dr/Ec) 81 mg PO DAILY Qty: 30 0RF Discharge Orders: Discharge Order (Routine); Ordered 05/13/24 Ordered By: Natasha Goodman Admission Data Admit Date/Time: 05/11/24 12:26 Attending Provider: Trip Diana Admit Provider: Jose Prieto Primary Care Provider: Swetha Newberry Other Providers: Joes Prieto; [facility] Fax; [facility] Other Interventions: Discharge Summary Assessment (RN) Last Done: 05/13/24 10:54 Hospital Stay Data Consultations 05/11/24 11:41 ED Decision to Admit Stat Diagnostic Imagining Performed Chest X-Ray 05/11/24 06:56 XR chest 1V portable HISTORY: 64 years-old Female Chest pain, nonspecific COMPARISON: 05/05/2024 TECHNIQUE: AP view of the chest FINDINGS: Cardiomediastinal and hilar silhouettes are unchanged. Cervical spinal fusion hardware. Cholecystectomy. No pneumothorax, pleural effusion or airspace consolidation. The bones of the chest appear grossly intact. IMPRESSION: No acute process. ACT 112: Negative or not required by law. The above report was generated using voice recognition software. It may contain grammatical, syntax or spelling errors. Electronically signed by: Ashu Gusman M.D. 05/11/2024 7:57 AM Abdomen/Pelvis CT 05/11/24 07:37 CT SCAN OF THE ABDOMEN AND PELVIS WITH IV CONTRAST CLINICAL HISTORY: Generalized abdominal pain. Falls. COMPARISON STUDY: Abdominal CT dated 02/20/2024. TECHNIQUE: Following the IV administration of 94 cc of Optiray 320, CT scan of the abdomen and pelvis is performed from the lung bases to the proximal femora. Images are reviewed in the axial, sagittal, and coronal planes. IV contrast was administered without complication. A dose lowering technique was utilized adhering to the principles of ALARA. CT DOSE: 2704.03 mGy.cm FINDINGS: Lung bases: The heart is normal in size and without pericardial effusion. The mitral annulus is densely calcified. The lung bases are clear noting bibasilar scarring/atelectasis. Liver: The contrast-enhanced liver is cirrhotic in morphology and heterogeneous in attenuation. There is hypertrophy of the left lobe and nodularity of the surface contour. There is no intrahepatic biliary ductal dilatation. The hepatic veins and portal veins are patent. Gallbladder: Surgically absent noting clips in the gallbladder fossa. Spleen: Normal in size and attenuation. Pancreas: There are numerous parenchymal calcifications suggesting chronic pancreatitis. Adrenal glands: Unremarkable. Kidneys: The contrast enhanced kidneys are normal in size and without hydronephrosis. The kidneys enhance symmetrically. Abdominal vasculature: The abdominal aorta is normal in course and caliber noting moderate atherosclerotic calcification. Bowel: No bowel obstruction is seen. The appendix is well-visualized and normal. Peritoneum: There is no intraperitoneal free air or abdominal ascites. There is a tiny fat-containing umbilical hernia. Lymphadenopathy: None. Pelvic viscera: The bladder is normal as visualized. The uterus is surgically absent. No adnexal lesion is seen. Skeletal structures: The skeletal structures are osteopenic. There is moderate lumbosacral spondylosis. No lytic or blastic lesions are seen. IMPRESSION: 1. No acute infectious or inflammatory findings are identified in the abdomen or pelvis. 2. Cirrhotic liver morphology. 3. There is evidence of chronic pancreatitis. 4. Additional findings as above. ACT 112: Negative or not required by law. Electronically signed by: Keegan Caceres M.D. 05/11/2024 9:[address] 05/11/24 07:[address] WITH CONTRAST HISTORY: Acute chest and abdominal pain status post trauma pain, recurrent falls TECHNIQUE: Multiaxial CT images of the chest were performed following the IV administration of 94 cc of Optiray. A dose lowering technique was utilized adhering to the principles of ALARA. COMPARISON: CT abdomen and pelvis of same day, chest CT 02/20/2024 FINDINGS: Unremarkable thyroid. Partially calcified nonenlarged mediastinal and hilar lymph nodes compatible with prior granulomatous disease. The heart is upper limits of normal in size. No thoracic aortic aneurysm or dissection identified. No pulmonary emboli are seen. There is no pneumothorax, pleural effusion, airspace consolidation or pulmonary edema. Mild dependent subsegmental bibasilar atelectasis. No suspicious pul monary nodules or masses. The central airways are patent. No acute upper abdominal abnormality. Cholecystectomy. Mild marginal nodularity of the liver suggestive of cirrhosis. Spleen measures up to 12 cm and demonstrates mild nonspecific heterogeneous enhancement. Unremarkable soft tissues. Partially imaged cervical spinal fusion hardware. Chronic appearing nondisplaced anterior rib fractures. No acute rib fracture identified. IMPRESSION: 1. No acute posttraumatic intrathoracic abnormality identified. 2. Cirrhotic liver. 3. Please refer to the same day CT abdomen and pelvis study for additional findings. ACT 112: Negative or not required by law. Electronically signed by: Ashu Gusman M.D. 05/11/2024 9:[address] 05/11/24 07:37 CT head/brain wo con CLINICAL HISTORY: 64 years-old Female with pain, recurrent falls. Acute head trauma status post fall TECHNIQUE: Multiple axial CT images of the head were obtained without contrast. A dose lowering technique was utilized adhering to the principles of ALARA. COMPARISON: Brain MRI 05/05/2024 FINDINGS: No acute intracranial hemorrhage, midline shift, intracranial mass, hydro cephalus, territorial ischemia or abnormal extra-axial collection. Involutional changes with chronic microvascular ischemic disease. Cerebral vascular calcifications. Prior right-sided craniotomy. The calvarium is intact. The paranasal sinuses, mastoid air cells, and middle ear cavities are clear. IMPRESSION: No acute intracranial abnormality. ACT 112: Negative or not required by law. The above report was generated using voice recognition software. It may contain grammatical, syntax or spelling errors. Electronically signed by: Ashu Gusman M.D. 05/11/2024 9:[address] 05/11/24 07:39 CT SCAN OF THE CERVICAL SPINE CLINICAL HISTORY: Falls. Neck pain. COMPARISON STUDY: CT of the cervical spine dated 01/30/2022. TECHNIQUE: CT scan of the cervical spine is performed from the skull base to the upper thoracic spine. Images are reviewed in the axial, sagittal, and coronal planes. IV contrast was not administered for this examination. A dose lowering technique was utilized adhering to the principles of ALARA. FINDINGS: Skeletal structures: The skeletal structures are osteopenia. There is no evidence of fracture or subluxation involving the cervical spine. Vertebral body height and alignment are maintained. There is postsurgical change from anterior fusion seen at C4-C7. There is straightening of cervical lordosis. The odontoid process and lateral masses are intact. The atlantoaxial articulation is preserved noting mild productive degenerative change. The spinous processes appear intact. There is multilevel facet arthropathy. Intervertebral discs: There is discectomy at C4-C5, C5-C6, and C6-C7. Moderate disc space narrowing is noted at C7-T1. Central canal: Grossly patent. Soft tissues: The prevertebral and paraspinous soft tissues are within normal limits. Atherosclerotic calcification is noted in the carotid bulbs. Sialoliths are noted in the parotid glands. Calvarium: The visualized calvarium at the skull base appears intact. Brain parenchyma: Partially visualized brain parenchyma at the skull base is within normal limits. Sinuses and mastoids: The visualized paranasal sinuses are clear. The mastoid air cells are well pneumatized. Lung apices: Clear as visualized. IMPRESSION: 1. There is no evidence of fracture or subluxation involving the cervical spine. 2. Osteopenia with postsurgical and degenerative change as above. ACT 112: Negative or not required by law. Electronically signed by: Keegan Caceres M.D. 05/11/2024 9:02 AM Pending Results Patient Have Any Pending Studies at Discharge: Yes Discharge Instructions Given to Patient (Per Discharging Provider) Nury, You were admitted to the hospital after multiple falls at home. The imaging you had done on admission, which included CT scans of your head, cervical spine, chest, abdomen and pelvis, and a chest x-ray, were unremarkable for an acute process. Your urine dipstick was negative, but your urine culture is pending to evaluate for an acute urinary tract infection. You also had some electrolyte abnormalities on admission, which were repleted and within normal limits at this time. Due to your decreased appetite in recent months, you have been started on Remeron to help with appetite stimulation. Given your other medications including scheduled buspirone and fluoxetine, as well as as needed diazepam, trazodone, and oxycodone, monitor how Remeron affects you and let someone from your medical team know if you experience nausea, vomiting, blurred vision, changes in your bowel habits, tremors, racing heart rate, or fever/chills. There have been no other medication changes during this hospitalization. You can continue your other home medications as prescribed. Please follow-up with your PCP 1 week after discharge from [facility]. It was a pleasure taking care of you while you were in the hospital, Natasha Goodman PA-C Total Time Total Time Spent Total Time Spent (In Minutes): Greater than 30 minutes spent completing this discharge process including direct patient care, medication reconciliation, documentation, review of labs and images, and coordination of care. Coding Level of Care Code 45742 INP/OBS DISCH >30 MIN Diagnoses Recurrent falls R29.6 Chronic hyponatremia E87.1 History of CVA (cerebrovascular accident) Z86.73 Depression F32.A
--- OUTSIDE RECORDS SUMMARY | 2024-05-13 16:16 | External Medical Summary | Continuity of Care Document ---
Author Name Unknown Organization [address] Address [address] [place] [address] DR MIDDLETON MAYWOODPAM [id number] Care Team Providers Care Impregnator And Drier Name Role Phone Swetha Newberry [facility] [phone] Encounter [facility] [id number] Date(s): 05/10/24 - 05/10/[address] [place] [address], [address] [place] [address] [phone] Encounter Diagnosis Body mass index [BMI] 25.0-25.9, adult(Discharge Diagnosis) - 05/10/24 Ischemic stroke(Discharge Diagnosis) - 05/10/24 History of recent hospitalization(Discharge Diagnosis) - 05/10/24 Lacunar stroke(Discharge Diagnosis) - 05/10/24 Ambulatory dysfunction(Discharge Diagnosis) - 05/10/24 At risk for falling(Discharge Diagnosis) - 05/10/24 Anorexia(Discharge Diagnosis) - 05/10/24 Urinary incontinence(Discharge Diagnosis) - 05/10/24 Depression(Discharge Diagnosis) - 05/10/24 Lumbar spinal stenosis(Discharge Diagnosis) - 05/10/24 Liver cirrhosis(Discharge Diagnosis) - 05/10/24 Chronic back pain(Discharge Diagnosis) - 05/10/24 Discharge Disposition: Home or Self Care Attending Physician: Maia Prakash DO, Mariana Annette Referring Physician: Maia Prakash DO, Mariana Annette Allergies, Adverse Reactions, Alerts Substance Criticality Severity Reaction Reaction Severity Status Allergy Not found in Search 1 watery eyes Sneezing Active Rexulti feeling unstable Act milan gabapentin confusion Active Abilify seizure activity Act milan 1Seasonal allergies Assessment and Plan Extracted from: Title:Office Visit Note Author:Maia Prakash DO Swetha Betina Date:05/10/24 1.History of recent hospit alization Medications reconciled Patient set upfor home PT services 2.Lacunar stroke Continue aspirin and atorvastatin 3.Ambulatory dysfunction Rx for walker with breaks given to pt 4.At risk for falling as above 5.Anorexia discussed importance of eating real foods, can supplement w ensure but cannot be only nutrition source 6.Urinary incontinence vesicarenot a good option for her, has appt with urology next month, will ask about myrbetriq 7.Depression has apptwith psych in the next 2 weeks mood has declined a lot and makes remarks about suicidal ideation (mentions thereisnosusangun) but has no ability to act on these thoughts also talks about unrelated things/stories while answering questions 8.Lumbar spinal stenosis increase oxycodone to 7.5mg q6h f/u 4 weeks Immunizations Given and Recorded Vaccine Date Status Refusal Reason SARS-CoV-2 (COVID-19) mRNA-vacc - [id number] 05/28/23 Recorded SARS-CoV-2 mRNA (Pfizer 12+) bivalent 02/27/23 Rec orded SARS-CoV-2 mRNA (Pfizer 12+) bivalent 07/10/22 Rec orded SARS-CoV-2 mRNA ([id number]) 12/03/21 Re corded pneumococcal 23-valent vaccine 11/22/21 Recorded pneumococcal 23-valent vaccine 1 05/04/12 Recorded SARS-CoV-2 (COVID-19) mRNA BNT-162b2 vax 2 05/31/21 Recorded SARS-CoV-2 (COVID-19) mRNA BNT-162b2 vax 3 11/04/20 Recorded SARS-CoV-2 (COVID-19) mRNA BNT-162b2 vax 4 10/14/20 Recorded zoster vaccine, inactivated 5 04/28/20 Recorded zoster vaccine, inactivated 6 08/09/19 Recorded tetanus toxoids-diphtheria, Td (Adult) 7 01/04/19 Recorded tetanus toxoids-diphtheria, Td (Adult) 8 12/09/02 Recorded tetanus toxoids-diphtheria, Td (Adult) 9 08/18/92 Recorded tetanus/diphtheria/pertuss, acel (Tdap) 10 1/3/11 Recorded 1Result Comment: 2021-10-18: Historical information-source unspecified [...] for pain Start Date: 02/07/22 Status: Ordered aspirin 81 mg oral delayed release tablet Start: 05/10/24 1:12:00 PM EDT, 1 tab, PO, Daily Start Date: 05/10/24 Status: Ordered atorvastatin 40 mg oral tablet Start: 05/10/24 1:12:00 PM EDT, 1 tab, PO, Daily Start Date: 05/10/24 Status: Ordered atorvastatin 40 mg oral tablet [...] bid, Disp# 180 tab, Refills: 3, Pharmacy: [facility] Start Date: 04/23/24 Status: Ordered diazePAM [...] q7days, Disp# 12 tab, Refills: 3, Pharmacy: [facility] Start Date: 12/17/23 Status: Ordered losartan [...] minutes until patient responds, PRN: sedation, Pharmacy: [facility] Start Date: 04/23/24 Status: Ordered Neuriva Brain performance Plus Start: 12/17/23 3:01:00 PM EDT Start Date: 12/17/23 Status: Ordered nystatin 100,000 units/g topical cream Start: 09/10/23 12:55:00 PM EST, See Instructions, Disp# 30 g, Refills: 5, apply to affected area twice daily, Pharmacy: [facility] Start Date: 09/10/23 Status: Ordered omeprazole 40 mg oral delayed release capsule Start: 12/24/23 11:51:00 AM EDT, See Instructions, Disp# 90 cap, Refills: 3, TAKE 1 CAPSULE BY MOUTH ONCE DAILY, Pharmacy: [facility] Start Date: 12/24/23 Status: Ordered oxyCODONE 5 mg oral tablet Start: 05/10/24 5:13:00 PM EDT, 1.5 tab, PO, q6h, Disp# 84 tab, Refills: 0, PRN: as needed for pain,Pharmacy: [facility] Start Date: 05/10/24 Status: Ordered potassium chloride Start: 12/17/23 3:01:00 PM EDT Start Date: 12/17/23 Status: Ordered predniSONE 20 mg oral tablet TAKE 3 TABLETS BY MOUTH DAILY FOR 2 DAYS, 2 TABLETS DAILY FOR 2 DAYS, 1 TABLET DAILY FOR 2 DAYS, THEN STOP Start Date: 05/10/24 Status: Ordered rizatriptan 10 mg oral tablet Start: 12/24/23 11:44:00 AM EDT, See Instructions, Disp# 9 tab, Refills: 0, 1 tab PO STAT with onset of headache may repeat dose once in 2 hours MDD 2 tablets, Pharmacy: [facility] Start Date: 12/24/23 Status: Ordered sodium bicarbonate Start: 12/24/23 10:55:00 AM EDT, 2000mg Start Date: 12/24/23 Status: Ordered traZODone 150 mg oral tablet Start: 08/07/22 2:18:00 PM EST, 1 tab, PO, qhs, as needed--orderd from [place] Start Date: 08/07/22 Status: Ordered Mental Status 05/10/24 Barriers to Learning one year None evide nt Mandatory Health Literacy Documentation Yes Communication Barrier Present Yes Health Literacy Communication Barriers N ever Primary Language Greek Problem List Condition Confirmation Course Effective Dates Status H ealth Status Informant Diarrhea Confirmed Active Depression Confirmed Active Alcohol abuse Confirmed Active Arthritis of both hands Confirmed Active Chronic hyponatremia Confirmed Active Liver cirrhosis Confirmed Active H/O neutropenia Confirmed Active Hypertension Confirmed Active Lacunar stroke Confirmed Active Skin lesion of face Confirmed Active Urine leukocytes increased Confirmed Active Anorexia Confirmed Active Migraine without aura Confirmed Active Osteoarthritis of right knee Confirmed Active Osteoporosis Confirmed Active Left knee pain Confirmed Active Pulmonary HTN Confirmed Active Shoulder pain Confirmed Active Lumbar spinal stenosis Confirmed Active Thrombocytopenia Confirmed Active Urinary urgency Confirmed Active Urinary incontinence Confirmed Active Weight loss Confirmed Active Diagnosis Diagnosis Type Effective Dates Health Status Clinical Service Informant Ambulatory dysfunction Discharge Diagnosis 05/10/24 Non-Specified At risk for falling Discharge Diagnosis 05/10/24 Non-Specified Ischemic stroke Discharge Diagnosis 05/10/24 Non-Specified Body mass index [BMI] 25.0-25.9, adult Discharge Diagnosis 05/10/24 Non-Specified Anorexia Discharge Diagnosis 05/10/24 Non-Specified Lumbar spinal stenosis Discharge Diagnosis 05/10/24 Non-Specified History of recent hospitalization Discharge Diagnosis 05/10/24 Non-Specified Urinary incontinence Discharge Diagnosis 05/10/24 Non-Specified Lacunar stroke Discharge Diagnosis 05/10/24 Non-Specified Chronic back pain Discharge Diagnosis 05/10/24 Non-Specified Liver cirrhosis Discharge Diagnosis 05/10/24 Non-Specified Depression Discharge Diagnosis 05/10/24 Non-Specified Procedures Procedure Date Related Diagnosis Body [...] office. 4one year follow up done at [facility] 5Repeat colonoscopy in 10 years. 6A) Colon, [...] Most recent to oldest [Reference Range]: 1 Height 165.5 cm (05/10/24 1:00 PM) Patient Weight 70.6 kg (05/10/24 1:00 PM) Body Mass Index 25.78 kg/m2 (05/10/24 1:00 PM) Temperature [36.5-37.9 DegC] 36.1 DegC *LOW* (05/10/24 1:00 PM) Heart Rate 77 bpm (05/10/24 1:00 PM) Respiratory Rate 16 br/min (05/10/24 1:00 PM) Blood Pressure 116/72mmHg (05/10/24 1:00 PM) Cuff Pulse Pressure 44 mmHg (05/10/24 1:00 PM) Social History Social History Type Response Smoking Status Former Smoker, quit > 1 yr Sex Female Sex Representation Female (finding) FCM Outpt Note * Maia Prakash DO, Mariana Annette: PERFORM Event Display: FCM Outpt Note Authored Date: [id number] Chief Complaint tcm follow up- needs pain relief and lack of appetite History of Present Illness Discharged on Saturday 05/05 admitted for ischemic lacunar stroke and d/c on 04/29, returned due to recurrent sx that were thought to be a complex migraine she was started on asa 81mg and [id number], has some issues with speech and confusion since stroke, can move all limbs freely, no facial droop She is on a prednisone taper for complex migraine. frustrated due to all the testing she is undergoing with no answers, poor communication from specialists. Not eating, only ensure and protein bars. Losing weight Reluctant, but willing to cont PT, has started home PT last week. Has been using a walker at home to ambulate, but does not have breaks and difficult to manage. wants to go back on vesicare (stopped due to inc thirst and hyponatremia, but pt also with hallucinations at times so would not be a good option) Back pain not well controlled, 5mg oxycodone brings it down some, but still in a lot of pain, shun at night. Taking it TID. Mamta manages all medications now. Physical Exam Vitals & Measurements T:36.1C HR:77(Monitored) RR:16 BP:116/72 SpO2:97% HT:165.5cm WT:70.6kg WT:70.600kg(Dosing) BMI:25.78 PHQ2 Data(Data Documented on:05/10/2024 13:00) Emotional health assessment NEGATIVE General: _sluggishbutoriented, No acute distress, in wheelchair Cardiovascular: _Normal rate, Regular rhythm, No murmur, No gallop. Respiratory: _Lungs are clear to auscultation, Respirations are non-labored, Breath sounds are equal Psych: flat affect,slowspeech Assessment/Plan 1.History of recent hospitalization Medications reconciled Patient set upfor home PT services 2.Lacunar stroke Continue aspirin and atorvastatin 3.Ambulatory dysfunction Rx for walker with breaks given to pt 4.At risk for falling as above 5.Anorexia discussed importance of eating real foods, can supplement w ensure but cannot be only nutrition source 6.Urinary incontinence vesicarenot a good option for her, has appt with urology next month, will ask about myrbetriq 7.Depression has apptwith psych in the next 2 weeks mood has declined a lot and makes remarks about suicidal ideation (mentions therejaycee)but has no ability to act on these thoughts also talks about unrelated things/stories while answering questions 8.Lumbar spinal stenosis increase oxycodone to 7.5mg q6h f/u 4 weeks Attestation Time spent: Pre-visit planning: _10 Lmkf-go-wzzo visit: _45 Post-visit (orders/documentation/coordination of care):6 Total visit time: _61 Problem List/Past Medical History Ongoing Alcohol abuse Anorexia Arthritis of both hands Chronic hyponatremia Depression Diarrhea H/O neutropenia Hypertension Lacunar stroke Left knee pain Liver cirrhosis Lumbar spinal stenosis Migraine without aura Osteoarthritis of right knee Osteoporosis Pulmonary HTN Shoulder pain Skin lesion of face Thrombocytopenia Urinary incontinence Urinary urgency Urine leukocytes increased Weight loss Resolved Alcoholic Procedure/Surgical History EGD - esophagogastroduodenoscopy| Service Date: 02/26/2024Mammogram| Service Date: 02/09/2024olonoscopy| Service Date: 12/01/2023Knee| Service Date: 08/05/2023Radio-frequency ablationsystem| Service Date: 10/30/2022HysterectomyCholecystectomyCarpal tunnelArthroscopic melisa ulsophia procedureCervical spinal fusionBurr hole Medications acetaminophen, 650 mg, PO, q8h alendronate(Fosamax 35 mg oral tablet), 35 mg= 1 tab, PO, q7days, 3 refills aspirin(aspirin 81 mg oral delayed release tablet), 81 mg= 1 tab, PO, Daily atorvastatin(atorvastatin 40 mg oral tablet), 40 mg= 1 tab, PO, Daily atorvastatin(atorvastatin 40 mg oral tablet) busPIRone(busPIRone 15 mg oral tablet) busPIRone(BuSpar Dividose [...] 3 refills oxyCODONE(oxyCODONE 5 mg oral tablet), 7.5 mg= 1.5 tab, PO, q6h, PRN potassium chloride predniSONE(predniSONE 20 mg oral tablet) rizatriptan(rizatriptan 10 mg oral tablet), See Instructions [...] Member(s) Immunizations Vaccine Date Status SARS-CoV-2 (COVID-19) mRNA-vacc - [id number] 05/28/2023 Recorded SARS-CoV-2 mRNA (Pfizer 12+) bivalent 02/27/2023 Recorded SARS-CoV-2 mRNA (Pfizer 12+) bivalent 07/10/2022 Recorded SARS-CoV-2 mRNA ([id number]) 12/03/2021 Recorded pneumococcal 23-valent vaccine 11/22/2021 Recorded SARS-CoV-2 (COVID-19) mRNA BNT-162b2 vax 05/31/2021 Recorded [...] Influenza Vaccine due02/15/24and every 1year Due Adult Social Determinants of Health Screening due05/10/24Unknown Frequency Falls Plan of Care due05/10/24Unknown Frequency Satisfied(in the past 1 year) Satisfied Body Mass Index on05/10/24.Satisfied by RADHA Shah Angela Breast Cancer Screening on02/09/24.Satisfied by RADHA Shah Angela Depression Follow Up Plan on04/23/24.Satisfied by RADHA Arteaga Natalie Electronic Signature on File Electronically Reviewed/Signed by: Swetha Prakash DO Author Signature Dt/Tm:05/10/2024 05:15 PM Department of Family Medicine [facility] Patient Care team information Care Team Personnel Name: Maia Prakash DO, Mariana Annette Position: Physician - Family Med Member Role: Primary Care Provider Address: [address] [place] [address] [place] Care Team Related Persons Name: MAMTA NOVAK"
[2024-05-13] MEDS ORDERED: MIRTAZAPINE TAB 15 MG TAB PO SCH (21:00)
== END 2024-05-13 12:49 ==
LOC: 3N 06:48 → ED 06:48 → SUATTDRO 12:26 → 3N 18:31

== ENCOUNTER 2024-05-27 15:54 | Inpatient (IN) ==
--- NOTE | 2024-05-27 16:34 | Emergency Department Note ---
Impression & Plan AMS (altered mental status), Headache ED Provider Note ED Provider Note NAME: JUHI WHITFIELD AGE:64 SEX: Female : 1960 ARRIVES VIA: EMS INFORMANT: Patient, family ED PROVIDER(s): Lluvia Lorenzo DO CHIEF COMPLAINT: Confusion HPI: This is a 64-year-old female who presents emergency department due to concern for confusion and patient reporting headache. Family at bedside states patient does have a history of migraines, however this seems atypical and she has never been confused with the migraine previously. No history of complex migraines per her report. Family states she has frequent headaches, even more so since her stroke. She states PT/OT came to the house to evaluate the patient and not to contacted her stating that the patient seemed confused and cannot answer questions appropriately. 911 was contacted. Family had left around 11am and she seemed in her usual state of health at that time. She states when she arrived home when EMS was getting there patient complained of a headache additionally. She states patient did have a stroke that was found on MRI approximately 6 weeks ago, they are uncertain when the stroke occurred. She states after her most recent hospitalization several medication changes were made. She states patient's headaches are typically unilateral, she denies any history of a coming vomiting or weakness. Patient at this time denies vision changes, neck pain, or nausea. Patient cannot answer questions coherently. When first asked if she has a headache she says no. When asked again later than she says yes and points to her right supraorbital region. Patient does have some residual symptoms from prior CVA per family. PAST MEDICAL HISTORY:See Below PAST SURGICAL HISTORY:See Below FAMILY HISTORY:See Below SOCIAL HISTORY:See Below HOME MEDICATIONS:See Below ALLERGIES:See Below VITALS:See Below PHYSICAL EXAMINATION: GENERAL: alert, well appearing, well nourished, no distress, non-toxic EYE EXAM: normal conjunctiva, PERRL and EOM's grossly intact OROPHARYNX: no exudate, no erythema, lips, buccal mucosa, and tongue normal and mucous membranes are dry NECK: supple, no nuchal rigidity, no adenopathy, non-tender LUNGS: Clear to auscultation. Normal chest wall mechanics, no w/r/r HEART: no murmurs, S1 normal and S2 normal ABDOMEN: abdomen soft, non-tender, normo-active bowel sounds, no masses, no rebound or guarding. SKIN: no rashes, petechiae, orbruising UPPER EXTREMITIES: upper extremities are grossly normal. FROM, nml pulses b/l. LOWER EXTREMITIES: No pitting edema. FROM, nml pulses b/l. NEURO EXAM: Confused, cranial nerves II-XII grossly intact, normal speech, no obvious facial droop - slight downturn of the left corner of the mouth,nogross weakness of arms, no gross weakness of legs. Gross sensation intact. No ataxia. Vital Signs: reviewed and remarkable Differential Diagnosis: headache, tension headache, cluster headache, migraine, subarachnoid hemorrhage, meningitis, mass, central venous thrombus, concussion, trauma and epidural/subdural hemorrhage. MEDICAL DECISION MAKING: THis is a 64 yo female brought in by EMS due to concern for confusion and c/o headache. Patient unable to provide much hx, family at bedside helps to provide hx of changes today and recent PMHx. She was afebrile and VS stable. Labs drawn and sent, IV established, EKG and CXR performed and interpreted at bedside, and patient placed on telemetry. Patient able to sip fluids and she was encouraged to do so instead of IVF due to restrictions based on IVF shortage. She was sent for CT/CTA. Last known well 11am per . She does have chronic deficits from a prior CVA however feels some of those are worse than normal. No focal deficits on exam. Imaging reassuring. Patient noted on labs to have anemia and leukopenia however these are not new and appear stable compared to prior. Urine eventually collected and suggestive of UTI. Urine cultures reviewed and patient started on rocephin. VS remained stable and BP improved with oral intake. No other new or evolving symptoms. at bedside updated several times. We discussed additional inpatient evaluation and mgmt. Case discussed with hospitalist team. Consultation(s): 2135: Discussed with Dr. Bruno, [place] hospitalist team, for additional evaluation and mgmt. ER Treatment Provided: See below Diagnostics Interpreted By Me: -ECG: Normal sinus at 73, normal axis, normal intervals, no acute ST/T wave changes -Cardiac Monitoring: An order was placed for continuous cardiac monitoring. The monitor shows a rate of 76 with normal sinus rhythm. -Laboratory studies: As stated above and show below. -Imaging studies: CT head: No [facility] Triage Nursing Note Reviewed Prior/Outside Records Reviewed Past Med/Surg History Problem List (Updated 05/27/24 @ 22:49 by Timmy Bruno MD) Hypotension History of alcoholism (2021) quit 2021 (drank 6 beers/day) COPD (chronic obstructive pulmonary disease) former smoker Non-ischemic cardiomyopathy alcoholic CM; EF 35-40% in 2018, 60-65% in 2020 Sepsis due to urinary tract infection Lethargic Headache (Acute) AMS (altered mental status) (Acute) Depression Recurrent falls (Acute) Generalized weakness (Acute) History of CVA (cerebrovascular accident) Acute ischemic stroke Diarrhea Weakness (Acute) Vitamin D deficiency Neutropenia Hyponatremia with decreased serum osmolality Generalized weakness (Acute) Spinal stenosis of lumbar region Incontinence (Chronic) Myofascial pain Dermatochalasis of both upper eyelids 10/28/23 Shoulder pain Status post arthroscopy of left knee Knee pain, left Encounter for pre-operative examination Episodes of speech arrest 04/21/23 Episodes of staring 04/21/23 Lumbar spondylosis Thrombocytopenia Spinal stenosis Positive ROSANGELA (antinuclear antibody) Scalp hematoma Gastritis 01/30/22 Elevated LFTs Ambulatory dysfunction (Acute) Frequent falls (Acute) Chronic pain disorder Hypocalcemia Anemia Leukopenia Encephalopathy Metabolic acidosis (Acute) S/P cervical spinal fusion ROM WNL History of onel hole surgery History of arthroscopic procedure on shoulder Rt History of carpal tunnel surgery Rt COPD (chronic obstructive pulmonary disease) pt denies Alcoholism (Acute) Chronic pancreatitis pt denies Nonischemic cardiomyopathy Uterine leiomyoma (Chronic 07/18/11) 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/11) Seizure disorder (Chronic 05/16/12) Medical History NEREYDA (acute kidney injury) Stroke-like symptoms Headache Acute UTI Bradycardia Acute dehydration Altered mental status Hypotension Lumbar stenosis 03/26/24 MRI showed significant stenosis lumbar spine; pt was originally to have lumbar decompression/fusion but put on hold pending evaluation for pancytopenia History of recent hospitalization [facility] 03/26/24-03/29/24: dx: hyponatremia, weakness, neutropenia, LBP. pt started on fluid restriction and sodium tabs. heme recommended bone marrow bx for neutropenia. ortho/spine consulted for lumbar spinal stenosis but operative mgmt deferred 2/2 comorbidities and pancytopenia. 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 These have been stopped... 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 These have been stopped" Spinal stenosis GERD (gastroesophageal reflux disease) controlled, stable per pt Difficult airway for intubation limited cervical spine extension; s/p cervical spinal fusion Lumbar facet joint syndrome Lumbar spondylosis Hx of falling last fall over 1 year ago per patient Hx of gastritis patient denies recent flare Hx of encephalopathy no issues since stopping ETOH use 2021 COPD (chronic obstructive pulmonary disease) former smoker History of alcoholism (2021) quit 2021 (drank 6 beers/day) Hx of tinnitus Hx of migraines Pulmonary hypertension Hx of per 09/2019 ECHO: Moderate pulmonary HTN: Tiffanie PASP 51mmhg, assuming RAP of 3mmhg; per 03/2024 ECHO: RVSP 31mmHg Seasonal allergies Non-ischemic cardiomyopathy alcoholic CM; EF 35-40% in 2018, 60-65% in 2019 Hx of chronic pancreatitis History of anemia Chronic pain disorder back Positive ROSANGELA (antinuclear antibody) Stress incontinence Chronic cough Follows [facility] pulm - pt. reports due to pollen and states has nearly resolved in recent months HTN (hypertension) controlled, stable per pt Cirrhosis Hep C induced; pt recently dx with recurrence of Hep C and awaiting tx with hepatology History of subdural hematoma (2010) 2010 Osteoarthritis History of seizure (2010) Following subdural hematoma 2010 from fall. Pt follows with [facility] Neuro; per 01/01/24 Neuro note, pt had 'episode of speech and movement arrest in the context of a histyr of posttraumatic seizures' 04/2023. Had normal EEG. Pt advised by neuro to start keppra but pt refuses. Surgical History Hx of blepharoplasty (01/2024) History of craniotomy (2010) Due to subdural hematoma from fall Hx of hysterectomy Hx of cholecystectomy History of carpal tunnel release right Hx of arthroscopy of shoulder right Hx of arthroscopy of left knee S/P cervical spinal fusion C4-C7 per imaging review History of onel hole surgery (2010) lead to craniotomy History of esophagogastroduodenoscopy (EGD) History of colonoscopy Family History Mother Hypertension Other No family history of adverse response to anesthesia Social History Smoking Status: Former smoker Tobacco Type: Cigarettes Age Started Using Tobacco: 18; Age Quit Using Tobacco: 30; packs per day: 1; Cigarettes Per Day: 1 pack a day; Second Hand Exposure: No; Do You Dip or Chew Tobacco: No; Hx Alcohol Use: No Hx Substance Use: No Preferred Language: Northern Irish Communication Ability: Effective 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 current occupational status: unemployed How many Children do You have: 0 Feels Safe at Home: Yes Assistive Devices: Lift Chair Allergies Allergies Allergy/AdvReac Type Severity Reaction Status Date / Time brexpiprazole [From Rexulti] Allergy Severe Makes me Unverified 05/11/24 10:31 very lofty aripiprazole AdvReac Severe seizure Verified 05/11/24 10:31 activity per [facility] EMR gabapentin AdvReac Severe Confusion Verified 05/11/24 10:31 acetaminophen AdvReac Unknown per [facility] Verified 05/11/24 10:31 EMR, to be avoided given cirrhosis ibuprofen AdvReac Unknown per [facility] Verified 05/11/24 10:31 EMR to be avoided given cirrhosis Home Meds Home Medications Medication Instructions Recorded Confirmed rizatriptan 10 mg disintegrating 10 mg PO DIRECTED PRN Migraine 11/21/21 05/27/24 tablet Headache calcium 600 mg (as 2 cap PO QAM 08/02/22 05/27/24 carbonate)-vitamin D3 12.5 mcg (500 unit) capsule (Calcium with Vit D3) alendronate 35 mg tablet 35 mg PO WK 04/20/23 05/27/24 buspirone 30 mg tablet 30 mg PO BID 04/20/23 05/27/24 diazepam 5 mg tablet 5 mg PO BID PRN Anxiety 04/20/23 05/27/24 omeprazole 40 mg capsule,delayed 40 mg PO DAILY gerd 04/20/23 05/27/24 release losartan 25 mg tablet 25 mg PO BID 07/31/23 05/27/24 nystatin 100,000 unit/gram topical 1 applic topical UD PRN Skin 07/31/23 05/27/24 cream Irritation carvedilol 3.125 mg tablet 3.125 mg PO BID 04/26/24 05/27/24 fluoxetine 40 mg capsule 80 mg PO 1XD 04/26/24 05/27/24 oxycodone 5 mg tablet 7.5 mg PO Q6H PRN Pain 04/26/24 05/27/24 trazodone 150 mg tablet 225 mg PO HS PRN Insomnia 04/26/24 05/27/24 sodium chloride 1,000 mg soluble 1,000 mg PO BID 05/05/24 05/27/24 tablet docusate sodium 100 mg capsule 100 mg PO BID 05/27/24 05/27/24 Previous Rx's Medication Instructions Recorded aspirin 81 mg tablet,delayed 81 mg PO DAILY #30 tabs 04/30/24 release atorvastatin 40 mg tablet 40 mg PO QAM #30 tabs 04/30/24 mirtazapine 15 mg tablet 15 mg PO HS #30 tabs 05/13/24 Results & Data (ED) Vital Signs Vital Signs - 24 hr 05/27/24 21:58 Pulse Rate [Apical] 80 Respiratory Rate 17 Respiratory Effort / Characteristics Non-Labored Spontaneous Respiratory Depth Normal Respiratory Pattern Regular Blood Pressure [Right Arm] 145/85 H Blood Pressure Mean [Right Arm] 105 Pulse Oximetry 97 Oxygen Delivery Method Room Air Laboratory Data 05/28/24 06:42 05/28/24 06:42 Lab Results 05/27/24 05/27/24 05/27/24 Range/Units 16:40 17:46 19:20 WBC 3.81 L (4.8-10.8) K/ul RBC 3.41 L (4.20-5.40) M/uL Hgb 11.4 L (12.0-16.0) g/dl Hct 34.5 L (37.0-47.0) % MCV 101.2 H (80.0-100.0) fL MCH 33.4 (25.0-34.0) pg MCHC 33.0 (32.0-36.0) g/dL RDW Std Deviation 48.0 H (36.4-46.3) fL RDW Coeff of [place] 12.8 (11.5-14.5) % Plt Count 142 (130-400) K/uL MPV 8.9 L (9.4-12.4) fL Immature Gran % (Auto) 0.3 % Neut % (Auto) 66.6 % Lymph % (Auto) 14.7 % Sanders % (Auto) 10.8 % Eos % (Auto) 7.1 % Baso % (Auto) 0.5 % Neut # (Auto) 2.54 (1.40-6.50) K/uL Lymph # (Auto) 0.56 L (1.20-3.40) K/uL Sanders # (Auto) 0.41 (0.11-0.59) K/uL Eos # (Auto) 0.27 (0.00-0.50) K/uL Baso # (Auto) 0.02 (0.00-0.20) K/uL Immature Gran # (Auto) 0.01 (0.01-0.20) K/uL PT 11.3 (9.0-12.0) Seconds INR 1.0 (0.9-1.1) Sodium 139 (136-145) mmol/L Potassium 4.7 (3.5-5.1) mmol/L Chloride 106 (98-107) mmol/L Carbon Dioxide 27 (21-32) mmol/L Anion Gap 6 (3-11) BUN 16 (6-23) mg/dl Creatinine 1.13 (0.6-1.2) mg/dl Est Cr Clr Drug Dosing 51.3 ml/min eGFR 53.99 BUN/Creatinine Ratio 14.2 (10-20) Glucose 82 (70-99(Fasting)) mg/dl Calcium 8.4 L (8.6-10.3) mg/dl Magnesium 2.0 (1.7-2.4) mg/dl Total Bilirubin 0.2 (0.2-1.0) mg/dl AST 26 (13-39) U/L ALT 14 (7-52) U/L Alkaline Phosphatase 71 (34-104) U/L Ammonia (18-72) umol/L Troponin I High Sens 5.2 (0-14) pg/ml Total Protein 6.4 (6.0-8.3) gm/dl Albumin 3.7 (3.4-5.0) gm/dl Globulin 2.7 (2.5-4.0) gm/dl Albumin/Globulin Ratio 1.4 (0.9-2) Lipase 18 (11-82) U/L TSH 1.617 (0.300-4.500) uIu/ml Urine Color Yellow Urine Appearance Clear (Clear) Urine pH 5.5 (4.5-7.5) Ur Specific [place] > 1.045 H (1.000-1.030) Urine Protein Negative (Negative) Urine Glucose (UA) Negative (Negative) Urine Ketones Negative (Negative) Urine Blood Negative (Negative) Urine Nitrite Negative (Negative) Urine Bilirubin Negative (Negative) Urine Urobilinogen Negative (Negative) Ur Leukocyte Esterase 2+ H (Negative) Urine WBC (Auto) 21-50 H (0-5) /hpf Urine RBC (Auto) 0-2 (0-2) /hpf U Hyaline Cast (Auto) 11-20 H (0-2) /lpf U Epithel Cells (Auto) 0-2 (0-2) /hpf Urine Bacteria (Auto) None Seen (None Seen) Ethyl Alcohol mg/dL < 10.0 (<10.0) mg/dl 05/27/24 Range/Units 20:08 WBC (4.8-10.8) K/ul RBC (4.20-5.40) M/uL Hgb (12.0-16.0) g/dl Hct (37.0-47.0) % MCV (80.0-100.0) fL MCH (25.0-34.0) pg MCHC (32.0-36.0) g/dL RDW Std Deviation (36.4-46.3) fL RDW Coeff of [place] (11.5-14.5) % Plt Count (130-400) K/uL MPV (9.4-12.4) fL Immature Gran % (Auto) % Neut % (Auto) % Lymph % (Auto) % Sanders % (Auto) % Eos % (Auto) % Baso % (Auto) % Neut # (Auto) (1.40-6.50) K/uL Lymph # (Auto) (1.20-3.40) K/uL Sanders # (Auto) (0.11-0.59) K/uL Eos # (Auto) (0.00-0.50) K/uL Baso # (Auto) (0.00-0.20) K/uL Immature Gran # (Auto) (0.01-0.20) K/uL PT (9.0-12.0) Seconds INR (0.9-1.1) Sodium (136-145) mmol/L Potassium (3.5-5.1) mmol/L Chloride (98-107) mmol/L Carbon Dioxide (21-32) mmol/L Anion Gap (3-11) BUN (6-23) mg/dl Creatinine (0.6-1.2) mg/dl Est Cr Clr Drug Dosing ml/min eGFR BUN/Creatinine Ratio (10-20) Glucose (70-99(Fasting)) mg/dl Calcium (8.6-10.3) mg/dl Magnesium (1.7-2.4) mg/dl Total Bilirubin (0.2-1.0) mg/dl AST (13-39) U/L ALT (7-52) U/L Alkaline Phosphatase (34-104) U/L Ammonia 27.0 (18-72) umol/L Troponin I High Sens (0-14) pg/ml Total Protein (6.0-8.3) gm/dl Albumin (3.4-5.0) gm/dl Globulin (2.5-4.0) gm/dl Albumin/Globulin Ratio (0.9-2) Lipase (11-82) U/L TSH (0.300-4.500) uIu/ml Urine Color Urine Appearance (Clear) Urine pH (4.5-7.5) Ur Specific [place] (1.000-1.030) Urine Protein (Negative) Urine Glucose (UA) (Negative) Urine Ketones (Negative) Urine Blood (Negative) Urine Nitrite (Negative) Urine Bilirubin (Negative) Urine Urobilinogen (Negative) Ur Leukocyte Esterase (Negative) Urine WBC (Auto) (0-5) /hpf Urine RBC (Auto) (0-2) /hpf U Hyaline Cast (Auto) (0-2) /lpf U Epithel Cells (Auto) (0-2) /hpf Urine Bacteria (Auto) (None Seen) Ethyl Alcohol mg/dL (<10.0) mg/dl Administered Medications Aspirin (Aspirin 81 Mg Ectab) 81 mg PO DAILY LAURA Stop: 06/27/24 08:59 Last Admin: 05/28/24 08:48 Dose: 81 mg Documented By: ROGER Buspirone HCl (Buspirone 15 Mg Tab) 30 mg PO BID LAURA Stop: 06/27/24 20:59 Last Admin: 05/28/24 19:49 Dose: 30 mg Documented By: KULWANT Carvedilol (Carvedilol 3.125 Mg Tab) 3.125 mg PO BID LAURA Stop: 06/27/24 20:59 Last Admin: 05/28/24 19:50 Dose: 3.125 mg Documented By: KULWANT Fluoxetine HCl (Fluoxetine Hcl 20 Mg Cap) 80 mg PO QAM LAURA Stop: 06/27/24 17:59 Last Admin: 05/28/24 19:49 Dose: 80 mg Documented By: KULWANT Pantoprazole Sodium 40 mg/ (Syringe) 10 mls @ 5 mls/min IV DAILY@1100 [facility] Stop: 06/27/24 10:59 Last Admin: 05/28/24 13:11 Dose: 5 mls/min Documented By: ROGER Ceftriaxone Sodium (Rocephin) 2,000 mg in 50 mls @ 100 mls/hr IV Q24H LAURA Stop: 06/07/24 19:59 Last Infusion: 05/28/24 20:22 Dose: Infused Documented By: Admin: 05/28/24 19:52 Dose: 100 mls/hr Documented By: KULWANT Discontinued Medications Diazepam (Diazepam 2 Mg Tablet) 2 mg PO NOW ONE Stop: 05/28/24 19:38 Last Admin: 05/28/24 19:50 Dose: 2 mg Documented By: KULWANT Ceftriaxone Sodium (Rocephin) 2,000 mg in 50 mls @ 100 mls/hr IV NOW STA Stop: 05/27/24 20:30 Last Infusion: 05/27/24 21:04 Dose: Infused Documented By: Admin: 05/27/24 20:30 Dose: 100 mls/hr Documented By: TREMAYNE Sodium Chloride (Nss) 1,000 mls @ 80 mls/hr IV .[id number] LAURA Stop: 05/28/24 10:44 Last Infusion: 05/28/24 11:01 Dose: Infused Documented By: Admin: 05/27/24 22:41 Dose: 80 mls/hr Documented By: TREMAYNE Pantoprazole Sodium 40 mg/ (Syringe) 10 mls @ 5 mls/min IV NOW STA Stop: 05/27/24 22:20 Last Admin: 05/27/24 22:40 Dose: 5 mls/min Documented By: TREMAYNE Thiamine HCl 300 mg/ Sodium (Chloride) 53 mls @ 210 mls/hr IV NOW STA Stop: 05/28/24 14:44 Last Infusion: 05/28/24 16:53 Dose: Infused Documented By: Admin: 05/28/24 16:11 Dose: 210 mls/hr Documented By: JAYNE Ioversol (Optiray 320 125ml) 119 ml IV ONCE ONE Stop: 05/27/24 19:03 Last Admin: 05/27/24 19:02 Dose: 119 ml Documented By: MIGUEL ANGEL Imaging Data Radiologist's Impression: Head CT 05/27/24 16:29 Exam(s): CT HEAD Without Contrast EXAM: CT Head Without Intravenous Contrast CLINICAL HISTORY: Reason for exam: YEPEZ, confusion, hx CVA. TECHNIQUE: Axial computed tomography images of the head/brain without intravenous contrast. CTDI is 62.1 mGy and DLP is 961.59 mGy-cm. Automated exposure control was utilized for the study. A dose lowering technique was utilized adhering to the principles of ALARA. COMPARISON: CT head on 05/11/2024 FINDINGS: Brain: No acute infarct or hemorrhage identified. No extra-axial fluid collection. No mass effect or midline shift. Scattered areas of hypoattenuation in the supratentorial white matter likely represent chronic small vessel ischemic changes. Ventricles and sulci: Prominence of the ventricles and sulci is likely secondary to cerebral volume loss. Bones: Right-sided craniotomy change. No bony lesion or acute fracture. Subcutaneous tissues: Normal. Sinuses: Normal. No air-fluid levels or mucosal thickening. Mastoid air cells: Normal. Orbits: Grossly unremarkable. Other: Atherosclerotic calcifications in the intracranial vasculature. IMPRESSION: 1. No acute intracranial abnormality. 2. Chronic small vessel ischemic changes and cerebral volume loss. Electronically signed by: Rubens Camarena M.D. 05/27/24 19:58 PM Head CTA 05/27/24 16:29 Exam(s): CTA HEAD With Contrast IV Amt: 119 ml optiray 320 EXAM: CT Angiography Head With Intravenous Contrast CLINICAL HISTORY: Reason for exam: yepez, confusion, hx cva. TECHNIQUE: Axial computed tomographic angiography images of the head with intravenous contrast. CTDI is 61.2 mGy and DLP is 961.59 mGy-cm. Automated exposure control was utilized for the study. A dose lowering technique was utilized adhering to the principles of ALARA. MIP reconstructed images were created and reviewed. CONTRAST: Patient received 119 ml optiray 320 of IV contrast COMPARISON: None FINDINGS: Right internal carotid artery: Atherosclerotic calcifications in the distal right ICA. No significant stenosis. No aneurysm. Right anterior cerebral artery: Unremarkable. No occlusion or significant stenosis. No aneurysm. Right middle cerebral artery: Unremarkable. No occlusion or significant stenosis. No aneurysm. Right posterior cerebral artery: Unremarkable. No occlusion or significant stenosis. No aneurysm. Right vertebral artery: Unremarkable as visualized. Left internal carotid artery: Atherosclerotic calcifications of the distal left ICA. No significant stenosis. No aneurysm. Left anterior cerebral artery: Unremarkable. No occlusion or significant stenosis. No aneurysm. Left middle cerebral artery: Unremarkable. No occlusion or significant stenosis. No aneurysm. Left posterior cerebral artery: Unremarkable. No occlusion or significant stenosis. No aneurysm. Left vertebral artery: The left vertebral artery probably terminates as the PICA, normal variant. Basilar artery: Unremarkable. No occlusion or significant stenosis. No aneurysm. IMPRESSION: No significant stenosis, occlusion, or aneurysm in the central or large intracranial arteries. Electronically signed by: Rubens Camarena M.D. 05/27/24 20:06 PM Neck CTA 05/27/24 16:29 Exam(s): CTA NECK With Contrast IV Amt: 119 ml optiray 320 EXAM: CT Angiography Neck With Intravenous Contrast CLINICAL HISTORY: Reason for exam: yepez, confusion, hx cva. TECHNIQUE: Routine carotid CT angiography protocol was performed with intravenous contrast. NASCET criteria using the distal ICAs for comparison were used for evaluation of stenoses. CTDI is 18.68 mGy and DLP is 420.93 mGy-cm. Automated exposure control was utilized for the study. A dose lowering technique was utilized adhering to the principles of ALARA. MIP reconstructed images were created and reviewed. CONTRAST: Patient received 119 ml optiray 320 of IV contrast COMPARISON: None FINDINGS: VASCULATURE: Right common carotid artery: Unremarkable. No occlusion or significant stenosis. No dissection. Right internal carotid artery: Atherosclerotic changes of the right carotid bulb and proximal right ICA, causing approximately 50% stenosis of the proximal right ICA. No dissection. Right external carotid artery: Unremarkable. No occlusion. Right vertebral artery: Dominant right vertebral artery. No occlusion or significant stenosis. No dissection. Left common carotid artery: Unremarkable. No occlusion or significant stenosis. No dissection. Left internal carotid artery: Atherosclerotic changes in the left carotid bulb and proximal left ICA. No significant stenosis. No dissection. Left external carotid artery: Unremarkable. No occlusion. Left vertebral artery: Unremarkable. No occlusion or significant stenosis. No dissection. NECK: Bones/joints: Degenerative changes of the spine. Anterior fusion changes from C4-C7. No acute fracture. Soft tissues: Unremarkable. Lung apices: Clear. CAROTID STENOSIS REFERENCE USING NASCET CRITERIA: % ICA stenosis = (1 - narrowest ICA diameter/diameter of distal cervical ICA) x 100. Mild - <50% stenosis. Moderate - 50-69% stenosis. Severe - 70-94% stenosis. Near occlusion - 95-99% stenosis. Occluded - 100% stenosis. IMPRESSION: Atherosclerotic changes of the right carotid bulb and proximal right ICA, causing approximately 50% stenosis of the proximal right ICA. No other significant stenosis, occlusion, or dissection. Electronically signed by: Rubens Camarena M.D. 05/27/24 20:03 PM Discharge Plan Visit Data Chief Complaint: Headache Stated Complaint: Headache ED Provider: Lluvia Lorenzo Discharge Problem: AMS (altered mental status), Headache Patient Disposition: Admitted As Inpatient Discharge Instructions Interventions: ED Discharge Assessment Last Done: 05/28/24 14:59
[2024-05-27 16:56] LABS: Basophils # (auto) 0.02 K/uL (0.00-0.20); Basophils % (auto) 0.5 %; Eosinophils # (auto) 0.27 K/uL (0.00-0.50); Eosinophils % (auto) 7.1 %; Hematocrit (blood only) 34.5 % (37.0-47.0); Hemoglobin 11.4 g/dl (12.0-16.0); Immature Granulocytes # (auto) 0.01 K/uL (0.01-0.20); Immature Granulocytes % (auto) 0.3 %; Lymphocytes # (auto) 0.56 K/uL (1.20-3.40); Lymphocytes % (auto) 14.7 %; Mean Corpuscular Hemoglobin 33.4 pg (25.0-34.0); Mean Corpuscular Volume 101.2 fL (80.0-100.0); Mean Platelet Volume 8.9 fL (9.4-12.4); Monocytes # (auto) 0.41 K/uL (0.11-0.59); Monocytes % (auto) 10.8 %; Neutrophils # (auto) 2.54 K/uL (1.40-6.50); Neutrophils % (auto) 66.6 %; Platelet Count 142 K/uL (130-400); RDW Coefficient of Variation 12.8 % (11.5-14.5); Red Blood Count 3.41 M/uL (4.20-5.40); White Blood Count 3.81 K/ul (4.8-10.8)
[2024-05-27 17:06] LABS: Prothrombin Time 11.3 Seconds (9.0-12.0)
[2024-05-27 17:13] LABS: Albumin Level 3.7 gm/dl (3.4-5.0); Bilirubin,Total 0.2 mg/dl (0.2-1.0); Calcium 8.4 mg/dl (8.6-10.3); Potassium 4.7 mmol/L (3.5-5.1)
[2024-05-27 17:19] LABS: Albumin Globulin Ratio 1.4 (0.9-2); BUN Creatinine Ratio 14.2 (10-20); Creatinine Clr Calc Pharmacy 51.3 ml/min; Globulin 2.7 gm/dl (2.5-4.0); Total Protein 6.4 gm/dl (6.0-8.3)
[2024-05-27 17:23] LABS: Troponin I High Sensitivity 5.2 pg/ml (0-14)
[2024-05-27 17:32] LABS: Thyroid Stimulating Hormone 1.617 uIu/ml (0.300-4.500)
[2024-05-27] MEDS: OPTIRAY 320 125ml IV ONE (19:02)
[2024-05-27 19:57] LABS: Appearance Urine Clear (Clear); Bacteria Urine Automated None Seen (None Seen); Bilirubin Urine Negative (Negative); Blood Urine Negative (Negative); Color Urine Yellow; Epithelial Cell Urine Auto 0-2 /hpf (0-2); Glucose Urine UA Negative (Negative); Ketones Urine Negative (Negative); Leukocyte Esterase Urine 2+ (Negative); Nitrite Urine Negative (Negative); Protein Urine Negative (Negative); RBC Urine Automated 0-2 /hpf (0-2); Specific Gravity Urine > 1.045 (1.000-1.030); Urobilinogen Urine Negative (Negative); WBC Urine Automated 21-50 /hpf (0-5); pH Urine 5.5 (4.5-7.5)
--- NOTE | 2024-05-27 19:59 | CT Scan Report ---
Exam(s): CT HEAD Without Contrast EXAM: CT Head Without Intravenous Contrast CLINICAL HISTORY: Reason for exam: YEPEZ, confusion, hx CVA. TECHNIQUE: Axial computed tomography images of the head/brain without intravenous contrast. CTDI is 62.1 mGy and DLP is 961.59 mGy-cm. Automated exposure control was utilized for the study. A dose lowering technique was utilized adhering to the principles of ALARA. COMPARISON: CT head on 05/11/2024 FINDINGS: Brain: No acute infarct or hemorrhage identified. No extra-axial fluid collection. No mass effect or midline shift. Scattered areas of hypoattenuation in the supratentorial white matter likely represent chronic small vessel ischemic changes. Ventricles and sulci: Prominence of the ventricles and sulci is likely secondary to cerebral volume loss. Bones: Right-sided craniotomy change. No bony lesion or acute fracture. Subcutaneous tissues: Normal. Sinuses: Normal. No air-fluid levels or mucosal thickening. Mastoid air cells: Normal. Orbits: Grossly unremarkable. Other: Atherosclerotic calcifications in the intracranial vasculature. IMPRESSION: 1. No acute intracranial abnormality. 2. Chronic small vessel ischemic changes and cerebral volume loss. Electronically signed by: Rubens Camarena M.D. 05/27/24 19:58 PM
--- NOTE | 2024-05-27 20:04 | CT Scan Report ---
Exam(s): CTA NECK With Contrast IV Amt: 119 ml optiray 320 EXAM: CT Angiography Neck With Intravenous Contrast CLINICAL HISTORY: Reason for exam: lundy, confusion, hx cva. TECHNIQUE: Routine carotid CT angiography protocol was performed with intravenous contrast. NASCET criteria using the distal ICAs for comparison were used for evaluation of stenoses. CTDI is 18.68 mGy and DLP is 420.93 mGy-cm. Automated exposure control was utilized for the study. A dose lowering technique was utilized adhering to the principles of ALARA. MIP reconstructed images were created and reviewed. CONTRAST: Patient received 119 ml optiray 320 of IV contrast COMPARISON: None FINDINGS: VASCULATURE: Right common carotid artery: Unremarkable. No occlusion or significant stenosis. No dissection. Right internal carotid artery: Atherosclerotic changes of the right carotid bulb and proximal right ICA, causing approximately 50% stenosis of the proximal right ICA. No dissection. Right external carotid artery: Unremarkable. No occlusion. Right vertebral artery: Dominant right vertebral artery. No occlusion or significant stenosis. No dissection. Left common carotid artery: Unremarkable. No occlusion or significant stenosis. No dissection. Left internal carotid artery: Atherosclerotic changes in the left carotid bulb and proximal left ICA. No significant stenosis. No dissection. Left external carotid artery: Unremarkable. No occlusion. Left vertebral artery: Unremarkable. No occlusion or significant stenosis. No dissection. NECK: Bones/joints: Degenerative changes of the spine. Anterior fusion changes from C4-C7. No acute fracture. Soft tissues: Unremarkable. Lung apices: Clear. CAROTID STENOSIS REFERENCE USING NASCET CRITERIA: % ICA stenosis = (1 - narrowest ICA diameter/diameter of distal cervical ICA) x 100. Mild - <50% stenosis. Moderate - 50-69% stenosis. Severe - 70-94% stenosis. Near occlusion - 95-99% stenosis. Occluded - 100% stenosis. IMPRESSION: Atherosclerotic changes of the right carotid bulb and proximal right ICA, causing approximately 50% stenosis of the proximal right ICA. No other significant stenosis, occlusion, or dissection. Electronically signed by: Rubens Camarena M.D. 05/27/24 20:03 PM
--- NOTE | 2024-05-27 20:07 | CT Scan Report ---
Exam(s): CTA HEAD With Contrast IV Amt: 119 ml optiray 320 EXAM: CT Angiography Head With Intravenous Contrast CLINICAL HISTORY: Reason for exam: lundy, confusion, hx cva. TECHNIQUE: Axial computed tomographic angiography images of the head with intravenous contrast. CTDI is 61.2 mGy and DLP is 961.59 mGy-cm. Automated exposure control was utilized for the study. A dose lowering technique was utilized adhering to the principles of ALARA. MIP reconstructed images were created and reviewed. CONTRAST: Patient received 119 ml optiray 320 of IV contrast COMPARISON: None FINDINGS: Right internal carotid artery: Atherosclerotic calcifications in the distal right ICA. No significant stenosis. No aneurysm. Right anterior cerebral artery: Unremarkable. No occlusion or significant stenosis. No aneurysm. Right middle cerebral artery: Unremarkable. No occlusion or significant stenosis. No aneurysm. Right posterior cerebral artery: Unremarkable. No occlusion or significant stenosis. No aneurysm. Right vertebral artery: Unremarkable as visualized. Left internal carotid artery: Atherosclerotic calcifications of the distal left ICA. No significant stenosis. No aneurysm. Left anterior cerebral artery: Unremarkable. No occlusion or significant stenosis. No aneurysm. Left middle cerebral artery: Unremarkable. No occlusion or significant stenosis. No aneurysm. Left posterior cerebral artery: Unremarkable. No occlusion or significant stenosis. No aneurysm. Left vertebral artery: The left vertebral artery probably terminates as the PICA, normal variant. Basilar artery: Unremarkable. No occlusion or significant stenosis. No aneurysm. IMPRESSION: No significant stenosis, occlusion, or aneurysm in the central or large intracranial arteries. Electronically signed by: Rubens Camarena M.D. 05/27/24 20:06 PM
[2024-05-27] MEDS: cefTRIAXone SODIUM 2,000 MG/50 ML BAG IV STA (20:30)
[2024-05-27] MEDS ORDERED: ONDANSETRON INJ 2 MG/ML 2 ML VIAL IV PRN (22:08)
--- NOTE | 2024-05-27 22:11 | History & Physical Report ---
Date of Service May 27, 2024 Assessment & Plan (1) Sepsis due to urinary tract infection: (2) AMS (altered mental status): (3) Hypotension: (4) Lethargic: (5) Depression: (6) Recurrent falls: (7) Generalized weakness: (8) History of CVA (cerebrovascular accident): (9) Generalized weakness: (10) Ambulatory dysfunction: (11) Chronic pain disorder: (12) Seizure disorder: (13) History of alcoholism: (14) COPD (chronic obstructive pulmonary disease): (15) Non-ischemic cardiomyopathy: Plan Sepsis due to urinary tract infection/hypotension/dehydration/lethargy- The patient will be admitted to telemetry Suspect combination of urinary tract infection, and blood pressure being low secondary to recent adjustment in antihypertensive medications Hold losartan 25 mg p.o. twice daily and carvedilol 3.125 mg p.o. twice daily Continue aspirin [address] head negative shows chronic small vessel disease CTA head negative, CTA neck with 50% proximal right ICA stenosis Patient may have an element of underlying Warnicke's encephalopathy, due to history of alcoholism, with current alcohol level being less than 10 May be an element of decreased cerebral perfusion with history of chronic small vessel disease and relative hypotension leading to cerebral ischemia Unclear if patient may have inadvertently mistaken administration of anxiety and depression medications UTI- Follow urine culture and sensitivity Ceftriaxone 2 g IV daily Anxiety and depression- Hold buspirone, diazepam, fluoxetine, mirtazapine and as needed trazodone History of hyponatremia- Sodium acceptable at 139 History of Present Illness Chief Complaint: The patient presents to the emergency department due to concerns regarding the acute development of confusion, as initially noted by occupational therapist who came to visit her home, and then confirmed by her significant other. In the emergency department, the patient is confused and lethargic, and her significant other provides the primary information for HPI and ROS. Primary Care Provider: Swetha Prakash DO The patient is a 64-year-old female with a past medical history including depression, recurrent falls, generalized weakness, history of CVA, vitamin D deficiency, hyponatremia, urinary incontinence, episodes of speech arrest and staring, ambulatory dysfunction, chronic pain disorder, encephalopathy, COPD, alcoholism, chronic pancreatitis, nonischemic cardiomyopathy, and seizure disorder. Recent admissions to [facility]: 03/26-03/29/2024, 04/26-04/30/2024, -05/06/2024, and 05/11-05/13/2024. She was admitted to [facility] from 05/13-05/22/2024, after which her significant other reports that the patient had been doing much better. She had a first day of physical therapy yesterday, and did well with that. She had a first day of occupational therapy today, and was noted by the therapist to be confused, who then notified her significant other, who then made arrangements for EMS to bring patient to the ED. Allergies Allergy/AdvReac Type Severity Reaction Status Date / Time brexpiprazole [From [facility]] Allergy Severe Makes me Unverified 05/11/24 10:31 very lofty aripiprazole AdvReac Severe seizure Verified 05/11/24 10:31 activity per [facility] EMR gabapentin AdvReac Severe Confusion Verified 05/11/24 10:31 acetaminophen AdvReac Unknown per [facility] Verified 05/11/24 10:31 EMR, to be avoided given cirrhosis ibuprofen AdvReac Unknown per [facility] Verified 05/11/24 10:31 EMR to be avoided given cirrhosis Home Medications Medication Instructions Recorded Confirmed Type rizatriptan 10 mg disintegrating 10 mg PO DIRECTED PRN Migraine 11/21/21 05/27/24 History tablet Headache calcium 600 mg (as 2 cap PO QAM 08/02/22 05/27/24 History carbonate)-vitamin D3 12.5 mcg (500 unit) capsule (Calcium with Vit D3) alendronate 35 mg tablet 35 mg PO WK 04/20/23 05/27/24 History buspirone 30 mg tablet 30 mg PO BID 04/20/23 05/27/24 History diazepam 5 mg tablet 5 mg PO BID PRN Anxiety 04/20/23 05/27/24 History omeprazole 40 mg capsule,delayed 40 mg PO DAILY gerd 04/20/23 05/27/24 History release losartan 25 mg tablet 25 mg PO BID 07/31/23 05/27/24 History nystatin 100,000 unit/gram topical 1 applic topical UD PRN Skin 07/31/23 05/27/24 History cream Irritation carvedilol 3.125 mg tablet 3.125 mg PO BID 04/26/24 05/27/24 History fluoxetine 40 mg capsule 80 mg PO 1XD 04/26/24 05/27/24 History oxycodone 5 mg tablet 7.5 mg PO Q6H PRN Pain 04/26/24 05/27/24 History trazodone 150 mg tablet 225 mg PO HS PRN Insomnia 04/26/24 05/27/24 History aspirin 81 mg tablet,delayed 81 mg PO DAILY #30 tabs 04/30/24 05/27/24 Rx release atorvastatin 40 mg tablet 40 mg PO QAM #30 tabs 04/30/24 05/27/24 Rx sodium chloride 1,000 mg soluble 1,000 mg PO BID 05/05/24 05/27/24 History tablet mirtazapine 15 mg tablet 15 mg PO HS #30 tabs 05/13/24 05/27/24 Rx docusate sodium 100 mg capsule 100 mg PO BID 05/27/24 05/27/24 History Past Med/Surg History Problem List (Updated 05/27/24 @ 22:49 by Timmy Bruno MD) Hypotension History of alcoholism (2021) quit 2021 (drank 6 beers/day) COPD (chronic obstructive pulmonary disease) former smoker Non-ischemic cardiomyopathy alcoholic CM; EF 35-40% in 2018, 60-65% in 2019 Sepsis due to urinary tract infection Lethargic Headache (Acute) AMS (altered mental status) (Acute) Depression Recurrent falls (Acute) Generalized weakness (Acute) History of CVA (cerebrovascular accident) Acute ischemic stroke Diarrhea Weakness (Acute) Vitamin D deficiency Neutropenia Hyponatremia with decreased serum osmolality Generalized weakness (Acute) Spinal stenosis of lumbar region Incontinence (Chronic) Myofascial pain Dermatochalasis of both upper eyelids 10/28/23 Shoulder pain Status post arthroscopy of left knee Knee pain, left Encounter for pre-operative examination Episodes of speech arrest 04/21/23 Episodes of staring 04/21/23 Lumbar spondylosis Thrombocytopenia Spinal stenosis Positive ROSANGELA (antinuclear antibody) Scalp hematoma Gastritis 01/30/22 Elevated LFTs Ambulatory dysfunction (Acute) Frequent falls (Acute) Chronic pain disorder Hypocalcemia Anemia Leukopenia Encephalopathy Metabolic acidosis (Acute) S/P cervical spinal fusion ROM WNL History of onel hole surgery History of arthroscopic procedure on shoulder Rt History of carpal tunnel surgery Rt COPD (chronic obstructive pulmonary disease) pt denies Alcoholism (Acute) Chronic pancreatitis pt denies Nonischemic cardiomyopathy Uterine leiomyoma (Chronic 07/18/11) 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/11) Seizure disorder (Chronic 05/16/12) Medical History NEREYDA (acute kidney injury) Stroke-like symptoms Headache Acute UTI Bradycardia Acute dehydration Altered mental status Hypotension Lumbar stenosis 03/26/24 MRI showed significant stenosis lumbar spine; pt was originally to have lumbar decompression/fusion but put on hold pending evaluation for p ancytopenia History of recent hospitalization [facility] 03/26/24-03/29/24: dx: hyponatremia, weakness, neutropenia, LBP. pt started on fluid restriction and sodium tabs. heme recommended bone marrow bx for n eutropenia. ortho/spine consulted for lumbar spinal stenosis but operative mgmt deferred 2/2 comorbidities and pancytopenia. 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 These have been stopped... 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 These have been stopped" Spinal stenosis GERD (gastroesophageal reflux disease) controlled, stable per pt Difficult airway for intubation limited cervical spine extension; s/p cervical spinal fusion Lumbar facet joint syndrome Lumbar spondylosis Hx of falling last fall over 1 year ago per patient Hx of gastritis patient denies recent flare Hx of encephalopathy no issues since stopping ETOH use 2021 COPD (chronic obstructive pulmonary disease) former smoker History of alcoholism (2021) quit 2021 (drank 6 beers/day) Hx of tinnitus Hx of migraines Pulmonary hypertension Hx of per 09/2019 ECHO: Moderate pulmonary HTN: [place] PASP 51mmhg, assuming RAP of 3mmhg; per 03/2024 ECHO: RVSP 31mmHg Seasonal allergies Non-ischemic cardiomyopathy alcoholic CM; EF 35-40% in 2018, 60-65% in 2020 Hx of chronic pancreatitis History of anemia Chronic pain disorder back Positive ROSANGELA (antinuclear antibody) Stress incontinence Chronic cough Follows with [facility] pulm - pt. reports due to pollen and states has nearly resolved in recent months HTN (hypertension) controlled, stable per pt Cirrhosis Hep C induced; pt recently dx with recurrence of Hep C and awaiting tx with hepatology History of subdural hematoma (2010) 2010 Osteoarthritis History of seizure (2010) Following subdural hematoma 2010 from fall. Pt follows with [facility] Neuro; per 01/01/24 Neuro note, pt had 'episode of speech and movement arrest in the context of a histyr of posttraumatic seizures' 04/2023. Had normal EEG. Pt advised by neuro to start keppra but pt refuses. Surgical History Hx of blepharoplasty (01/2024) History of craniotomy (2010) Due to subdural hematoma from fall Hx of hysterectomy Hx of cholecystectomy History of carpal tunnel release right Hx of arthroscopy of shoulder right Hx of arthroscopy of left knee S/P cervical spinal fusion C4-C7 per imaging review History of onel hole surgery (2010) lead to craniotomy History of esophagogastroduodenoscopy (EGD) History of colonoscopy Family History Mother Hypertension Other No family history of adverse response to anesthesia Social History Smoking Status: Former smoker Tobacco Type: Cigarettes Age Started Using Tobacco: 18; Age Quit Using Tobacco: 30; packs per day: 1; Cigarettes Per Day: 1 pack a day; Second Hand Exposure: No; Do You Dip or Chew Tobacco: No; Hx Alcohol Use: No Hx Substance Use: No Preferred Language: Gabonese Communication Ability: Effective Ict Trainer Required: No Beliefs That Will Affect Care: None marital status: Single Current Living Situation: Spouse Current Living Situation Comment: Lives at home with . current occupational status: unemployed How many Children do You have: 0 Feels Safe at Home: Yes Assistive Devices: Cane, Stair Lift and Walker Review of Systems Review of Systems: Review of systems as noted, as provided by significant other, due to patient's current medical condition Physical Exam Physical Exam: The patient is easily arousable, but remains confused and unable to answer questions. Normocephalic and atraumatic, lying in bed and in no acute distress. HEENT--PERRL, EOMI, mucous membranes and oropharynx mildly dry. Neck--supple. No JVD. No bruits. Thyroid normal, trachea midline, no adenopathy. Heart--normal S1 and S2. No murmurs, rubs or gallops. Lungs--clear bilaterally, no respiratory distress, no accessory muscle use. Abdomen--normal bowel sounds and soft. Nontender. Nondistended Extremities--no cyanosis or clubbing. No edema. There are good distal pulses b/l. Dermatologic--normal skin turgor, normal color, no abnormal lymph nodes, no rash. Neurologic--cranial nerves II through XII grossly intact. Rheumatologic--limited exam due to lethargy Psychiatric--lethargic Results & Data Results & Data Vital Signs (Past 12 Hours) Vital Signs Temp Pulse Pulse Resp BP BP Pulse Ox 05/27/24 21:58 80 17 145/85 H 97 05/27/24 20:31 109/73 05/27/24 20:05 72 05/27/24 20:00 71 17 96/59 L 98 05/27/24 16:10 90/52 L 05/27/24 16:05 36.7 C 73 16 84/61 L 96 05/27/24 15:59 72 05/27/24 15:58 36.7 C 74 19 84/61 L 98 O2 Del Method 05/27/24 21:58 Room Air 05/27/24 20:31 05/27/24 20:05 05/27/24 20:00 Room Air 05/27/24 16:10 05/27/24 16:05 Room Air 05/27/24 15:59 05/27/24 15:58 Room Air Laboratory Results Laboratory Results WBC 3.81 K/ul (4.8-10.8) L 05/27/24 16:40 RBC 3.41 M/uL (4.20-5.40) L 05/27/24 16:40 Hgb 11.4 g/dl (12.0-16.0) L 05/27/24 16:40 Hct 34.5 % (37.0-47.0) L 05/27/24 16:40 MCV 101.2 fL (80.0-100.0) H 05/27/24 16:40 MCH 33.4 pg (25.0-34.0) 05/27/24 16:40 MCHC 33.0 g/dL (32.0-36.0) 05/27/24 16:40 RDW Std Deviation 48.0 fL (36.4-46.3) H 05/27/24 16:40 RDW Coeff of [place] 12.8 % (11.5-14.5) 05/27/24 16:40 Plt Count 142 K/uL (130-400) 05/27/24 16:40 MPV 8.9 fL (9.4-12.4) L 05/27/24 16:40 Immature Gran % (Auto) 0.3 % 05/27/24 16:40 Neut % (Auto) 66.6 % 05/27/24 16:40 Lymph % (Auto) 14.7 % 05/27/24 16:40 [place] % (Auto) 10.8 % 05/27/24 16:40 Eos % (Auto) 7.1 % 05/27/24 16:40 Baso % (Auto) 0.5 % 05/27/24 16:40 Neut # (Auto) 2.54 K/uL (1.40-6.50) 05/27/24 16:40 Lymph # (Auto) 0.56 K/uL (1.20-3.40) L 05/27/24 16:40 [place] # (Auto) 0.41 K/uL (0.11-0.59) 05/27/24 16:40 Eos # (Auto) 0.27 K/uL (0.00-0.50) 05/27/24 16:40 Baso # (Auto) 0.02 K/uL (0.00-0.20) 05/27/24 16:40 Immature Gran # (Auto) 0.01 K/uL (0.01-0.20) 05/27/24 16:40 PT 11.3 Seconds (9.0-12.0) 05/27/24 16:40 INR 1.0 (0.9-1.1) 05/27/24 16:40 Sodium 139 mmol/L (136-145) 05/27/24 16:40 Potassium 4.7 mmol/L (3.5-5.1) 05/27/24 16:40 Chloride 106 mmol/L (98-107) 05/27/24 16:40 Carbon Dioxide 27 mmol/L (21-32) 05/27/24 16:40 Anion Gap 6 (3-11) 05/27/24 16:40 BUN 16 mg/dl (6-23) 05/27/24 16:40 Creatinine 1.13 mg/dl (0.6-1.2) 05/27/24 16:40 Est Cr Clr Drug Dosing 51.3 ml/min 05/27/24 16:40 eGFR 53.99 05/27/24 16:40 BUN/Creatinine Ratio 14.2 (10-20) 05/27/24 16:40 Glucose 82 mg/dl (70-99(Fasting)) 05/27/24 16:40 Calcium 8.4 mg/dl (8.6-10.3) L 05/27/24 16:40 Magnesium 2.0 mg/dl (1.7-2.4) 05/27/24 16:40 Total Bilirubin 0.2 mg/dl (0.2-1.0) 05/27/24 16:40 AST 26 U/L (13-39) 05/27/24 16:40 ALT 14 U/L (7-52) 05/27/24 16:40 Alkaline Phosphatase 71 U/L (34-104) 05/27/24 16:40 Ammonia 27.0 umol/L (18-72) 05/27/24 20:08 Troponin I High Sens 5.2 pg/ml (0-14) 05/27/24 16:40 Total Protein 6.4 gm/dl (6.0-8.3) 05/27/24 16:40 Albumin 3.7 gm/dl (3.4-5.0) 05/27/24 16:40 Globulin 2.7 gm/dl (2.5-4.0) 05/27/24 16:40 Albumin/Globulin Ratio 1.4 (0.9-2) 05/27/24 16:40 Lipase 18 U/L (11-82) 05/27/24 16:40 TSH 1.617 uIu/ml (0.300-4.500) 05/27/24 16:40 Urine Color Yellow 05/27/24 19:20 Urine Appearance Clear (Clear) 05/27/24 19:20 Urine pH 5.5 (4.5-7.5) 05/27/24 19:20 Ur Specific [place] > 1.045 (1.000-1.030) H 05/27/24 19:20 Urine Protein Negative (Negative) 05/27/24 19:20 Urine Glucose (UA) Negative (Negative) 05/27/24 19:20 Urine Ketones Negative (Negative) 05/27/24 19:20 Urine Blood Negative (Negative) 05/27/24 19:20 Urine Nitrite Negative (Negative) 05/27/24 19:20 Urine Bilirubin Negative (Negative) 05/27/24 19:20 Urine Urobilinogen Negative (Negative) 05/27/24 19:20 Ur Leukocyte Esterase 2+ (Negative) H 05/27/24 19:20 Urine WBC (Auto) 21-50 /hpf (0-5) H 05/27/24 19:20 Urine RBC (Auto) 0-2 /hpf (0-2) 05/27/24 19:20 U Hyaline Cast (Auto) 11-20 /lpf (0-2) H 05/27/24 19:20 U Epithel Cells (Auto) 0-2 /hpf (0-2) 05/27/24 19:20 Urine Bacteria (Auto) None Seen (None Seen) 05/27/24 19:20 Ethyl Alcohol mg/dL < 10.0 mg/dl (<10.0) 05/27/24 17:[address] 05/27/24 16:29 Exam(s): CT HEAD Without Contrast EXAM: CT Head Without Intravenous Contrast CLINICAL HISTORY: Reason for exam: YEPEZ, confusion, hx CVA. TECHNIQUE: Axial computed tomography images of the head/brain without intravenous contrast. CTDI is 62.1 mGy and DLP is 961.59 mGy-cm. Automated exposure control was utilized for the study. A dose lowering technique was utilized adhering to the principles of ALARA. COMPARISON: CT head on 05/11/2024 FINDINGS: Brain: No acute infarct or hemorrhage identified. No extra-axial fluid collection. No mass effect or midline shift. Scattered areas of hypoattenuation in the supratentorial white matter likely represent chronic small vessel ischemic changes. Ventricles and sulci: Prominence of the ventricles and sulci is likely secondary to cerebral volume loss. Bones: Right-sided craniotomy change. No bony lesion or acute fracture. Subcutaneous tissues: Normal. Sinuses: Normal. No air-fluid levels or mucosal thickening. Mastoid air cells: Normal. Orbits: Grossly unremarkable. Other: Atherosclerotic calcifications in the intracranial vasculature. IMPRESSION: 1. No acute intracranial abnormality. 2. Chronic small vessel ischemic changes and cerebral volume loss. Electronically signed by: Rubens Camarena M.D. 05/27/24 19:58 PM Head CTA 05/27/24 16:29 Exam(s): CTA HEAD With Contrast IV Amt: 119 ml optiray 320 EXAM: CT Angiography Head With Intravenous Contrast CLINICAL HISTORY: Reason for exam: yepez, confusion, hx cva. TECHNIQUE: Axial computed tomographic angiography images of the head with intravenous contrast. CTDI is 61.2 mGy and DLP is 961.59 mGy-cm. Automated exposure control was utilized for the study. A dose lowering technique was utilized adhering to the principles of ALARA. MIP reconstructed images were created and reviewed. CONTRAST: Patient received 119 ml optiray 320 of IV contrast COMPARISON: None FINDINGS: Right internal carotid artery: Atherosclerotic calcifications in the distal right ICA. No significant stenosis. No aneurysm. Right anterior cerebral artery: Unremarkable. No occlusion or significant stenosis. No aneurysm. Right middle cerebral artery: Unremarkable. No occlusion or significant stenosis. No aneurysm. Right posterior cerebral artery: Unremarkable. No occlusion or significant stenosis. No aneurysm. Right vertebral artery: Unremarkable as visualized. Left internal carotid artery: Atherosclerotic calcifications of the distal left ICA. No significant stenosis. No aneurysm. Left anterior cerebral artery: Unremarkable. No occlusion or significant stenosis. No aneurysm. Left middle cerebral artery: Unremarkable. No occlusion or significant stenosis. No aneurysm. Left posterior cerebral artery: Unremarkable. No occlusion or significant stenosis. No aneurysm. Left vertebral artery: The left vertebral artery probably terminates as the PICA, normal variant. Basilar artery: Unremarkable. No occlusion or significant stenosis. No aneurysm. IMPRESSION: No significant stenosis, occlusion, or aneurysm in the central or large intracranial arteries. Electronically signed by: Rubens Camarena M.D. 05/27/24 20:06 PM Neck CTA 05/27/24 16:29 Exam(s): CTA NECK With Contrast IV Amt: 119 ml optiray 320 EXAM: CT Angiography Neck With Intravenous Contrast CLINICAL HISTORY: Reason for exam: yepez, confusion, hx cva. TECHNIQUE: Routine carotid CT angiography protocol was performed with intravenous contrast. NASCET criteria using the distal ICAs for comparison were used for evaluation of stenoses. CTDI is 18.68 mGy and DLP is 420.93 mGy-cm. Automated exposure control was utilized for the study. A dose lowering technique was utilized adhering to the principles of ALARA. MIP reconstructed images were created and reviewed. CONTRAST: Patient received 119 ml optiray 320 of IV contrast COMPARISON: None FINDINGS: VASCULATURE: Right common carotid artery: Unremarkable. No occlusion or significant stenosis. No dissection. Right internal carotid artery: Atherosclerotic changes of the right carotid bulb and proximal right ICA, causing approximately 50% stenosis of the proximal right ICA. No dissection. Right external carotid artery: Unremarkable. No occlusion. Right vertebral artery: Dominant right vertebral artery. No occlusion or significant stenosis. No dissection. Left common carotid artery: Unremarkable. No occlusion or significant stenosis. No dissection. Left internal carotid artery: Atherosclerotic changes in the left carotid bulb and proximal left ICA. No significant stenosis. No dissection. Left external carotid artery: Unremarkable. No occlusion. Left vertebral artery: Unremarkable. No occlusion or significant stenosis. No dissection. NECK: Bones/joints: Degenerative changes of the spine. Anterior fusion changes from C4-C7. No acute fracture. Soft tissues: Unremarkable. Lung apices: Clear. CAROTID STENOSIS REFERENCE USING NASCET CRITERIA: % ICA stenosis = (1 - narrowest ICA diameter/diameter of distal cervical ICA) x 100. Mild - <50% stenosis. Moderate - 50-69% stenosis. Severe - 70-94% stenosis. Near occlusion - 95-99% stenosis. Occluded - 100% stenosis. IMPRESSION: Atherosclerotic changes of the right carotid bulb and proximal right ICA, causing approximately 50% stenosis of the proximal right ICA. No other significant stenosis, occlusion, or dissection. Electronically signed by: Rubens Camarena M.D. 05/27/24 20:03 PM Code Status & VTE Plan Code Status Full code VTE Prophylaxis Plan VTE Prophylaxis will be ordered: Yes PG Care Time/CCT Total # of Minutes Spent Total Time Spent with Patient: Total time spent is greater than 50% in coordination of care (as documented) at patient's floor/unit and/or counseling patient: Coding Level of Care Code 07581 INT INP/OBS CARE 75MIN Diagnoses Sepsis due to urinary tract infection A41.9; N39.0 AMS (altered mental status) R41.82 Hypotension I95.9 Hypotension type: unspecified hypotension type Lethargic R53.83 Depression F32.A Recurrent falls R29.6 Generalized weakness R53.1 History of CVA (cerebrovascular accident) Z86.73 Ambulatory dysfunction R26.2 Chronic pain disorder G89.4 Seizure disorder G40.909 History of alcoholism F10.21 COPD (chronic obstructive pulmonary disease) J44.9 Non-ischemic cardiomyopathy I42.8 (3) Hypotension Hypotension type: unspecified hypotension type Qualified Code(s): I95.9 - Hypotension, unspecified
[2024-05-27] MEDS: PANTOprazole 40 MG in SYRINGE 0 ML IV STA (22:40)
[2024-05-27] MEDS: SODIUM CHLORIDE 0.9% 1,000 ML IV SCH (22:41)
[2024-05-28 07:29] LABS: Basophils # (auto) 0.02 K/uL (0.00-0.20); Basophils % (auto) 0.8 %; Eosinophils % (auto) 7.9 %; Hematocrit (blood only) 33.1 % (37.0-47.0); Hemoglobin 11.3 g/dl (12.0-16.0); Immature Granulocytes # (auto) 0.01 K/uL (0.01-0.20); Immature Granulocytes % (auto) 0.4 %; Lymphocytes # (auto) 0.64 K/uL (1.20-3.40); Lymphocytes % (auto) 25.4 %; Mean Corpuscular Hemoglobin 33.5 pg (25.0-34.0); Mean Corpuscular Hgb Conc 34.1 g/dL (32.0-36.0); Mean Corpuscular Volume 98.2 fL (80.0-100.0); Mean Platelet Volume 8.7 fL (9.4-12.4); Monocytes # (auto) 0.29 K/uL (0.11-0.59); Monocytes % (auto) 11.5 %; Neutrophils # (auto) 1.36 K/uL (1.40-6.50); Platelet Count 110 K/uL (130-400); RDW Coefficient of Variation 12.7 % (11.5-14.5); RDW Standard Deviation 45.8 fL (36.4-46.3); Red Blood Count 3.37 M/uL (4.20-5.40); White Blood Count 2.52 K/ul (4.8-10.8)
[2024-05-28 07:43] LABS: Albumin Level 3.4 gm/dl (3.4-5.0); BUN Creatinine Ratio 15.2 (10-20); Calcium 8.4 mg/dl (8.6-10.3); Creatinine Clr Calc Pharmacy 73.3 ml/min; Magnesium 1.9 mg/dl (1.7-2.4); Phosphorus 3.3 mg/dl (2.5-4.9); Potassium 3.9 mmol/L (3.5-5.1)
--- NOTE | 2024-05-28 08:28 | Hospitalist Progress Note ---
Date of Service May 28, 2024 Assessment & Plan (1) Sepsis due to urinary tract infection: Plan: Sepsis with metabolic encephalopathy due to UTI Presented with hypotension, lethargy and infected appearing UA Also with recent antihypertensive adjustments contributing to hypotension Rocephin 2 g IV daily continued No leukocytosis 05/28 UCx pending Blood cultures ND, deferred as likely sterilized by antibiotics, patient with clinical improvement, and in period of blood culture bottle shortage. patient is normotensive and not tachycardic on review CThead small vessel disease no acute findings; CTA head negative/CTneck 50% right ICA stenosis. Hx R craniotomy (2) AMS (altered mental status): Plan: AMS Received thiamine 300 x 1 and p.o. supplementation due to past history of alcohol use. Confirmed with patient and with patient's that she has not had any alcohol consumption in several years. Not at risk for alcohol withdrawal SSRI resumed due to risk of withdrawal CVA evaluation as above DDx includes metabolic encephalopathy of UTI/sepsis (3) History of CVA (cerebrovascular accident): Plan: No evidence of acute CVA on admission, suspect acute weakness due to UTI. On afternoon reassessment patient has worsened confusion and left-sided deficits. This may be recrudescence/worsening of her deficits from underlying UTI however does have a significant change compared to morning assessment. Given this we will repeat CThead, and follow-up MRI Patient was hypotensive on admission, and had antihypertensives adjusted in the last few months. She has been normotensive since this morning and afebrile. Does not appear to be w/cerebral hypoperfusion at time of bedside assessment with a BP of 140/80 CThead without acute findings. Monitoring for MRI results signed out to overnight resident (4) Hypotension: Plan: Hypotension With UTI/sepsis as noted Recent medication changes with the switch from metoprolol to carvedilol one month ago, and losartan added a few months ago. Losartan held, Carvedilol was initially held this is resumed as patient normotensive and to minimize risk of beta-pascual withdrawal Will defer restarting losartan until blood pressure trend is established. 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 At time of morning assessment she is alert and oriented, does have some left upper and left lower weakness which she reports is residual from her prior stroke. She reports she is knows that she was sick yesterday, and has been told that she was confused but feels that overall she is doing better today. She denies fever chills sweats. She denies chest pain chest pressure. Was slightly disoriented as she was resting but reorients easily. On afternoon reassessment she is seen at the bedside and awakens from a nap. Is oriented to name, place and year but is more confused and circumferential/tangential than prior and left upper left lower extremity weakness with leg drift appears worse compared to baseline. She is normotensive. Discussed with patient's by phone who reports that she does have some left sided strength deficits and confirms this, but is typically cognitively intact within normal baseline. Confusion is unusual for her, and she sounded completely normal this morning when she talked on the phone but again was more confused this afternoon which is atypical. Physical Exam Physical Exam: General: On morning assessment alert and oriented x 3, no acute distress, cooperative.. On afternoon reassessment is oriented to name and place but is more tangential circumferential and appears confused HEENT: Atraumatic, normocephalic. Pupils equal and reactive to light and accommodation Pulm: CTAB A&P. -wheezes, -rales, -rhonchi. Symmetrical chest rise. No increased work of breathing. No respiratory distress. Cardiac: RRR, -mrg. Radial pulses intact and symmetrical. Abdominal: Nontender, nondistended, soft. BS present.. Extremities: Left upper and left lower extremity qualitative weakness compared to the right. Worsened strength on afternoon reassessment without sensory deficits Results & Data Results & Data Vital Signs (Past 12 Hours) Vital Signs Temp Pulse Resp BP Pulse Ox O2 Del Method 05/28/24 06:56 36.8 C 05/28/24 06:00 72 17 128/79 97 Room Air 05/28/24 01:00 67 16 120/79 95 Room Air 05/28/24 00:00 67 16 90/48 L 95 Room Air 05/27/24 21:58 80 17 145/85 H 97 Room Air 05/27/24 20:31 109/73 PG Care Time/CCT Total # of Minutes Spent Total Time Spent with Patient: Total time spent is greater than 50% in coordination of care (as documented) at patient's floor/unit and/or counseling patient: Coding Level of Care Code 01610 SUB INP/OBS CARE 3/50MIN Diagnoses Sepsis due to urinary tract infection A41.9; N39.0 AMS (altered mental status) R41.82 History of CVA (cerebrovascular accident) Z86.73 Hypotension I95.9 Hypotension type: unspecified hypotension type Depression F32.A Generalized weakness R53.1 History of alcoholism F10.21 (4) Hypotension Hypotension type: unspecified hypotension type Qualified Code(s): I95.9 - Hypotension, unspecified
[2024-05-28] MEDS: ASPIRIN 81 MG ECTAB PO SCH (08:48)
--- OUTSIDE RECORDS SUMMARY | 2024-05-28 11:47 | External Medical Summary | Continuity of Care Document ---
Author Name Unknown Organization [address] Address [address] [place] [address] DR MIDDLETON GUYPAM [phone] Care Team Providers Care Sales Promoter Name Role Phone Swetha Newberry Primary Care P hysician [phone] Encounter [facility] [id number] Date(s): 05/24/24 - 05/24/[address] [place] [address], [address] [place] [address] [phone] Encounter Diagnosis Need for influenza vaccination(Discharge Diagnosis) - 05/24/24 Fall at home(Discharge Diagnosis) - 05/24/24 Hospitalization within last 30 days(Discharge Diagnosis) - 05/24/24 Discharge Disposition: Home or Self Care Attending [...] Visit Note Author:Maia Prakash DO, Mariana Annette Date:05/24/24 1.Fall at home 2.Hospitalization within last 30 days Patient doing much better has home PT set up from [facility] medication list reconciled f/u 6 wk Immunizations Given and Recorded Vaccine Date Status Refusal Reason influenza virus vaccine, inactivated 05/24/24 Give n SARS-CoV-2 (COVID-19) mRNA-vacc - [id number] 05/28/23 Recorded SARS-CoV-2 mRNA (Pfizer 12+) bivalent 02/27/23 Rec orded SARS-CoV-2 mRNA (Pfizer 12+) bivalent 07/10/22 Rec orded SARS-CoV-2 mRNA ([id number]) 12/03/21 Re corded pneumococcal 23-valent vaccine 11/22/21 [...] 9 08/18/92 Recorded tetanus/diphtheria/pertuss, acel (Tdap) 10 08/20/10 Recorded [...] 10Result Comment: 2021-10-18: Historical information-source unspecified Medications aspirin 81 mg oral delayed release tablet [...] PO, bid Start Date: 04/23/24 Status: Ordered calcium citrate Start: 12/17/23 3:00:00 PM EDT Start Date: 12/17/23 Status: Ordered Centrum Silver Start: 12/17/23 3:00:00 PM EDT Start Date: 12/17/23 Status: Ordered Coreg 3.125 mg oral tablet Start: 04/23/24 3:40:00 PM EDT, 1 tab, PO, bid, Disp# 180 tab, Refills: 3, Pharmacy: [facility] Start Date: 04/23/24 Status: Ordered diazePAM 10 mg oral tablet Take 1 tablet by mouth twice daily as needed Start Date: 05/24/24 Status: Ordered docusate sodium 100 mg oral capsule Start: 05/24/24 3:31:00 PM EDT, 1 cap, PO, Daily, PRN: as needed for constipation Start Date: 05/24/24 Status: Ordered FLUoxetine 20 mg oral capsule [...] q7days, Disp# 12 tab, Refills: 3, Pharmacy: [facility] Start Date: 12/17/23 Status: Ordered losartan 25 mg oral tablet Start: 04/23/24 3:13:00 PM EDT, 1 tab, PO, bid Start Date: 04/23/24 Status: Ordered magnesium oxide 400 mg (241.3 mg elemental magnesium) oral tablet Start: 02/07/22 1:07:00 PM EDT, 1 tab, PO, qAM Start Date: 02/07/22 Status: Ordered MiraLax oral powder for reconstitution Start: 05/24/24 3:34:00 PM EDT, 17 g =, PO, Daily Start Date: 05/24/24 Status: Ordered mirtazapine 15 mg oral tablet TAKE 1 TABLET BY MOUTH AT BEDTIME Start Date: 05/24/24 Status: Ordered naloxone 4 mg/0.25 mL nasal spray Start: 04/23/24 3:59:00 PM EDT, 1 spray, intranasal, ONCE, Disp# 2 each, use one spray in one nostril. if an additional dose is needed, alternate nostril may repeat every 2 to 3 minutes until patient responds, PRN: sedation, Pharmacy: [facility] Start Date: 04/23/24 Status: Ordered Neuriva Brain performance Plus Start: 12/17/23 3:01:00 PM EDT Start Date: 12/17/23 Status: Ordered nystatin 100,000 units/g topical cream Start: 09/10/23 12:55:00 PM EST, See Instructions, Disp# 30 g, Refills: 5, apply to affected area twice daily, Pharmacy: [facility] Start Date: 09/10/23 Status: Ordered omeprazole 40 mg oral delayed release capsule Start: 12/24/23 11:51:00 AM EDT, See Instructions, Disp# 90 cap, Refills: 3, TAKE 1 CAPSULE BY MOUTH ONCE DAILY, Pharmacy: [facility] Start Date: 12/24/23 Status: Ordered oxyCODONE 5 mg oral tablet Start: 05/10/24 5:13:00 PM EDT, 1.5 tab, PO, q6h, Disp# 84 tab, Refills: 0, PRN: as needed for pain,Pharmacy: [facility] Start Date: 05/10/24 Status: Ordered potassium chloride Start: 12/17/23 3:01:00 PM EDT Start Date: 12/17/23 Status: Ordered rizatriptan 10 mg oral tablet Start: 12/24/23 11:44:00 AM EDT, See Instructions, Disp# 9 tab, Refills: 0, 1 tab PO STAT with onset of headache may repeat dose once in 2 hours MDD 2 tablets, Pharmacy: [facility] Start Date: 12/24/23 Status: Ordered sodium bicarbonate Start: 12/24/23 10:55:00 AM EDT, 2000mg Start Date: 12/24/23 Status: Ordered traZODone 150 mg oral tablet Start: 08/07/22 2:18:00 PM EST, 1 tab, PO, qhs, as needed--orderd from [facility] Start Date: 08/07/22 Status: Ordered Mental Status 05/24/24 Barriers to Learning one year None evide nt Mandatory Health Literacy Documentation Yes Health Literacy Communication Barriers N ever Primary Language [place] Problem List Condition Confirmation Course Effective Dates [...] Effective Dates Health Status Clinical Service Informant Need for influenza vaccination Discharge Diagnosis 05/24/24 Non-Specified Hospitalization within last 30 days Discharge Diagnosis 05/24/24 Non-Specified Fall at home Discharge Diagnosis 05/24/24 Non-Specified Procedures Procedure Date Related Diagnosis Body [...] office. 4one year follow up done at [facility] 5Repeat colonoscopy in 10 years. 6A) [...] Most recent to oldest [Reference Range]: 1 Temperature [36.5-37.9 DegC] 36.6 DegC (05/24/24 3:37 PM) Blood Pressure 122/64mmHg (05/24/24 3:37 PM) Cuff Pulse Pressure 58 mmHg (05/24/24 3:37 PM) Social History Social History Type Response Smoking Status Former Smoker, quit > 1 yr Sex Female Sex Representation Female (finding) [facility] Outpt Note * Maia Prakash DO, Mariana Annette: PERFORM Event Display: [facility] Outpt Note Authored Date: [id number] Chief Complaint Pt here f/u History of Present Illness Admitted to [facility] 05/11-05/12 due to recurrent falls in the setting of recent lacunar stroke (04/2024),electrolyte irregularities. She was discharged to rehab at [facility] and discharged on 05/22. feels she is doing better. Has home PT set up. Still having right calf pain, she had a negative xray,states the PA at [facility] thought she tore a ligament. She will be seeing ortho tomorrow. Physical Exam Vitals & Measurements T:36.6C BP:122/64 SpO2:99% PHQ2 Data(Data Documented on:05/24/2024 15:37) Emotional health assessment NEGATIVE General: _Alert and oriented, No acute distress Cardiovascular: _Normal rate, Regular rhythm, No murmur, No gallop. Respiratory: _Lungs are clear to auscultation, Respirations are non-labored, Breath sounds are equal Psych: Mood-affect congruence. Reports no SI/HI. Speech is of normal pace and content Assessment/Plan 1.Fall at home 2.Hospitalization within last 30 days Patient doing much better has home PT set up from [facility] medication list reconciled f/u 6 wk Attestation Time spent: Pre-visit planning: _15 Msnv-ry-pjna visit: _25 Post-visit (orders/documentation/coordination of care):5 Total visit time: _45 Problem List/Past Medical History Ongoing Alcohol abuse [...] melisa ulder procedureCervical spinal fusionBurr hole Medications alendronate(Fosamax 35 mg oral tablet), 35 mg= 1 tab, PO, q7days, 3 refills aspirin(aspirin 81 mg oral delayed release tablet), 81 mg= 1 tab, PO, Daily atorvastatin(atorvastatin 40 mg oral tablet) busPIRone(BuSpar Dividose 30 mg oral tablet), 30 mg= 1 tab, PO, bid calcium citrate carvedilol(Coreg 3.125 mg oral tablet), 3.125 mg= 1 tab, PO, bid, 3 refills diazePAM(diazePAM 10 mg oral tablet) docusate(docusate sodium 100 mg oral capsule), 100 mg= 1 cap, PO, Daily, PRN FLUoxetine(FLUoxetine 40 mg oral capsule), 40 mg= 1 cap, PO, Daily FLUoxetine(FLUoxetine 20 mg oral capsule), 20 mg= 1 cap, PO, Daily fluticasone nasal(fluticasone 50 mcg/inh nasal spray), See Instructions losartan(losartan 25 mg oral tablet), 25 mg= 1 tab, PO, bid magnesium oxide(magnesium oxide 400 mg (241.3 mg elemental magnesium) oral tablet), 400 mg= 1 tab, PO, qAM mirtazapine(mirtazapine 15 mg oral tablet) multivitamin(Neuriva Brain performance Plus) multivitamin with minerals(Centrum Silver) naloxone(naloxone 4 mg/0.25 mL nasal spray), 1 spray, intranasal, ONCE, PRN nystatin topical(nystatin 100,000 units/g topical cream), See Instructions omeprazole(omeprazole 40 mg oral delayed release capsule), See Instructions, 3 refills oxyCODONE(oxyCODONE 5 mg oral tablet), 7.5 mg= 1.5 tab, PO, q6h, PRN polyethylene glycol 3350(MiraLax oral powder for reconstitution), 17 g, PO, Daily potassium chloride rizatriptan(rizatriptan 10 mg oral tablet), [...] Status Family Member(s) Immunizations Vaccine Date Status influenza virus vaccine, inactivated 05/24/2024 Given SARS-CoV-2 (COVID-19) mRNA-vacc - [id number] 05/28/2023 Recorded SARS-CoV-2 mRNA (Pfizer 12+) bivalent 02/27/2023 Recorded SARS-CoV-2 mRNA (Pfizer 12+) bivalent 07/10/2022 Recorded SARS-CoV-2 mRNA ([id number]-lwda-rff) 12/03/2021 Recorded pneumococcal 23-valent vaccine 11/22/2021 Recorded [...] Recommendations Health Maintenance Pending(in the next year) Due Adult Social Determinants of Health Screening due05/24/24Unknown Frequency Falls Plan of Care due05/24/24Unknown Frequency Due In Future Adult Influenza Vaccine not due until02/14/25and every 1year Body Mass Index not due until05/11/25and every 366day Satisfied(in the past 1 year) Satisfied Adult Influenza Vaccine on05/24/24.Satisfied by JUICE Olvera Donna Body Mass Index on05/10/24.Satisfied by RADHA Shah Angela Breast Cancer Screening on02/09/24.Satisfied by RADHA Shah Angela Depression Follow Up Plan on04/23/24.Satisfied by RADHA Arteaga Natalie Electronic Signature on File Electronically Reviewed/Signed by: Swetha Prakash DO Author Signature Dt/Tm:05/24/2024 04:17 PM Department of Family Medicine [facility] Patient Care team information Care Team Personnel Name: Maia Prakash DO, Mariana Annette Position: Physician - Family Med Member Role: Primary Care Provider Address: [address] [place] [address] [place] Care Team Related Persons Name: ZONIA NOVAK"
[2024-05-28] MEDS: PANTOprazole 40 MG in SYRINGE 0 ML IV SCH (13:11)
--- NOTE | 2024-05-28 14:17 | Electrocardiogram Report ---
Test Reason : Blood Pressure : */* mmHG Vent. Rate : 73 BPM Atrial Rate : 73 BPM P-R Int : 178 ms QRS Dur : 74 ms QT Int : 406 ms P-R-T Axes : 23 -18 27 degrees QTcB Int : 447 ms Normal sinus rhythm Low voltage QRS Borderline ECG When compared with ECG of 11-May-2024 06:55, Questionable change in QRS axis T wave inversion no longer evident in Inferior leads T wave inversion no longer evident in Anterolateral leads Confirmed by Bayron Rodriguez ([id number]) on 05/28/2024 2:17:33 PM Referred By: REFERRED SELF Confirmed By: Bayron Rodriguez
[2024-05-28] MEDS: THIAMINE HCL 300 MG in SODIUM CHLORIDE 0.9% 50 ML IV STA (16:11)
--- NOTE | 2024-05-28 17:33 | CT Scan Report ---
CT SCAN OF THE BRAIN WITHOUT IV CONTRAST CLINICAL HISTORY: Strokelike symptoms. Left-sided weakness. COMPARISON STUDY: CT of the brain dated 05/27/2024. TECHNIQUE: Unenhanced axial CT scan of the brain is performed from the vertex to the skull base. A do se lowering technique was utilized adhering to the principles of ALARA. CT DOSE: 547.75 mGy.cm FINDINGS: Brain parenchyma: There is age-related involutional change noting mild to moderate subcortical and pe riventricular microangiopathic disease. There is no hemorrhage, mass effect, or evidence of acute ter ritorial ischemia by CT criteria. Villanueva-white matter differentiation is preserved. No extra-axial flui d collection is seen. Ventricles, sulci, cisterns: Prominent secondary to involutional change. Intracranial vasculature: There is atherosclerotic calcification of the cavernous carotid and vertebr al arteries. Calvarium: There is postsurgical change in right-sided craniotomy. No destructive calvarial lesion is seen. Sinuses and mastoids: The visualized paranasal sinuses are clear. The mastoid air cells are well pneu matized. Orbits: The bony orbits are grossly intact. IMPRESSION: There is no hemorrhage, mass effect, or evidence of acute territorial ischemia by CT daren alonzo. ACT 112: Negative or not required by law. Electronically signed by: Keegan Caceres M.D. 05/28/2024 5:31 PM
--- NOTE | 2024-05-28 19:01 | Magnetic Resonance Report ---
MRI OF THE BRAIN WITHOUT IV CONTRAST CLINICAL HISTORY: Change in mental status. Stroke like symptoms. COMPARISON STUDY: CT of the brain dated 05/28/2024. MRI of the brain dated 05/05/2024. TECHNIQUE: MRI of the brain was performed utilizing various T1 and T2-weighted sequences in the axial , sagittal, and coronal planes. IV contrast was not administered for this examination. FINDINGS: Brain parenchyma: There is age-related involutional change noting minimal microangiopathic disease. T here is no hemorrhage or mass effect. There is no restricted diffusion to suggest acute ischemia. Gra y-white matter differentiation is preserved. No extra-axial fluid collection is seen. The cerebellar tonsils are normal in configuration. Ventricles, sulci, and cisterns: Prominent secondary to involutional change. Pituitary and sella: Unremarkable. Intracranial vasculature: Normal flow voids are maintained at the skull base. Orbits: The bony orbits are grossly intact. Orbital contents are normal in appearance. Sinuses and mastoids: Clear. Calvarium: There is posterior surgical change from right-sided craniotomy. No destructive calvarial l esion is seen. Cervical cord: Partially visualized cervical spinal cord is normal in morphology and signal intensity . IMPRESSION: No acute intracranial abnormality. ACT 112: Negative or not required by law. Electronically signed by: Keegan Caceres M.D. 05/28/2024 7:00 PM
[2024-05-28] MEDS: FLUoxetine HCL 20 MG CAP PO SCH (19:49)
[2024-05-28] MEDS: busPIRone 15 MG TAB PO SCH (19:49)
[2024-05-28] MEDS: diazePAM 2 MG TABLET PO ONE (19:50)
[2024-05-28] MEDS: carvediloL 3.125 MG TAB PO SCH (19:50)
[2024-05-28] MEDS: cefTRIAXone SODIUM 2,000 MG/50 ML BAG IV SCH (19:52)
[2024-05-29 06:55] LABS: Basophils # (auto) 0.01 K/uL (0.00-0.20); Basophils % (auto) 0.4 %; Eosinophils # (auto) 0.12 K/uL (0.00-0.50); Eosinophils % (auto) 4.8 %; Hematocrit (blood only) 33.4 % (37.0-47.0); Hemoglobin 11.5 g/dl (12.0-16.0); Immature Granulocytes # (auto) 0.01 K/uL (0.01-0.20); Immature Granulocytes % (auto) 0.4 %; Lymphocytes % (auto) 19.9 %; Mean Corpuscular Hemoglobin 33.4 pg (25.0-34.0); Mean Corpuscular Hgb Conc 34.4 g/dL (32.0-36.0); Mean Corpuscular Volume 97.1 fL (80.0-100.0); Mean Platelet Volume 8.7 fL (9.4-12.4); Monocytes # (auto) 0.22 K/uL (0.11-0.59); Monocytes % (auto) 8.8 %; Neutrophils # (auto) 1.65 K/uL (1.40-6.50); Neutrophils % (auto) 65.7 %; Platelet Count 119 K/uL (130-400); RDW Coefficient of Variation 12.4 % (11.5-14.5); RDW Standard Deviation 44.1 fL (36.4-46.3); Red Blood Count 3.44 M/uL (4.20-5.40); White Blood Count 2.51 K/ul (4.8-10.8)
[2024-05-29 07:12] LABS: Albumin Level 3.6 gm/dl (3.4-5.0); BUN Creatinine Ratio 13.3 (10-20); Calcium 8.7 mg/dl (8.6-10.3); Creatinine Clr Calc Pharmacy 87.5 ml/min; Magnesium 1.5 mg/dl (1.7-2.4); Phosphorus 2.9 mg/dl (2.5-4.9); Potassium 3.7 mmol/L (3.5-5.1)
[2024-05-29] MEDS: THIAMINE HCL 100 MG TAB PO SCH (08:08)
[2024-05-29] MEDS: ATORVASTATIN 40 MG TAB PO SCH (08:08)
[2024-05-29] MEDS: MAGNESIUM OXIDE 400 MG TAB PO SCH (09:05)
[2024-05-29] MEDS: diazePAM 5 MG TABLET PO PRN (09:59)
[2024-05-29] MEDS: MAGNESIUM SULFATE / D5W 1 GM/100 ML BAG IV ONE (10:01)
--- NOTE | 2024-05-29 10:24 | Hospitalist Progress Note ---
Date of Service May 29, 2024 Assessment & Plan (1) Sepsis due to urinary tract infection: Plan: Sepsis with metabolic encephalopathy due to UTI Presented with hypotension, lethargy and infected appearing UA Also with recent antihypertensive adjustments contributing to hypotension Rocephin 2 g IV daily continued No leukocytosis 05/28 UCx pending Blood cultures ND, deferred as likely sterilized by antibiotics, patient with clinical improvement, and in period of blood culture bottle shortage. patient is normotensive and not tachycardic on review CThead small vessel disease no acute findings; CTA head negative/CTneck 50% right ICA stenosis. Hx R craniotomy (2) AMS (altered mental status): Plan: AMS Received thiamine 300 x 1 and p.o. supplementation due to past history of alcohol use. Confirmed with patient and with patient's that she has not had any alcohol consumption in several years. Not at risk for alcohol withdrawal SSRI resumed due to risk of withdrawal CVA evaluation as above DDx includes metabolic encephalopathy of UTI/sepsis Given myalgias/body aches, intermittent cough noted by provider when at bedside, and increased confusion with normal CT/MRI we will expand to evaluate for tickborne illness and broad respiratory panel as patient has been intermittently confused and has worsened aches despite antibiotics. Magnesium was low, this is repleted IV and p.o. (3) History of CVA (cerebrovascular accident): Plan: No evidence of acute CVA on admission, suspect acute weakness due to UTI. On afternoon reassessment patient has worsened confusion and left-sided deficits. This may be recrudescence/worsening of her deficits from underlying UTI however does have a significant change compared to morning assessment. Given this we will repeat CThead, and follow-up MRI Patient was hypotensive on admission, and had antihypertensives adjusted in the last few months. She has been normotensive since this morning and afebrile. Does not appear to be w/cerebral hypoperfusion at time of bedside assessment with a BP of 140/80 CThead without acute findings. Monitoring for MRI results signed out to overnight resident (4) Hypotension: Plan: Hypotension, resolved With UTI/sepsis as noted Recent medication changes with the switch from metoprolol to carvedilol one month ago, and losartan added a few months ago. Losartan held, Carvedilol was initially held this is resumed as patient normotensive and to minimize risk of beta-pascual withdrawal Losartan resumed 05/29 (5) Depression: Plan: Anxiety/depression Continue BuSpar, diazepam, fluoxetine, mirtazapine. Diazepam was transiently held for concerns of confusion, this has been resumed Continue trazodone at bedtime as needed (6) Generalized weakness: Plan: PT/OT pending (7) History of alcoholism: Plan: - In remission for many years Patient's confirms no alcohol use in several years, does drink Budweiser 0 nonalcoholic only Plan DVT prophylaxis: Lovenox CODE STATUS: Full code Diet: Heart healthy Admission and Anticipated Discharge Date Admission Date: May 27, 2024 Grace Arrington is seen at the bedside this morning. She is alert and oriented to name year and place. Maintaining much better with linear goal-directed thought pro cess compared to prior evening. She has some trace asymmetry to addresser and hip flexion but again greatly improved compared to last night. She reports that she has not any fever chills or sweats last night. Does not have a very bad cough, has coughed a little bit once in a while but does not think this is unusual. No abdominal pain no nausea/diarrhea/constipation. Denies rashes. She does have d iffuse aches through her lower extremities and her arms, which improved with her home Valium last night. No other questions or concerns at bedside Physical Exam Physical Exam: General: On morning assessment alert and oriented x 3, no acute distress. Thought process linear, with patient well-oriented on morning visit HEENT: Atraumatic, normocephalic. Pupils equal and reactive to light and accommodation Pulm: CTAB A&P. -wheezes, -rales, -rhonchi. Symmetrical chest rise. No increased work of breathing. No respiratory distress. Cardiac: RRR, -mrg. Radial pulses intact and symmetrical. Abdominal: Nontender, nondistended, soft. BS present.. Extremities: Left upper and left lower extremity qualitative weakness compared to the right, although left addresser strength, elbow flexion, shoulder flexion/internal rotation/external rotation, hip flexion, ankle show flexion/plantarflexion 4+/5 and improved compared to prior evening's exam. Sensation is intact to soft touch in hands and feet. Results & Data Results & Data Vital Signs (Past 12 Hours) Vital Signs Temp Pulse Pulse Resp BP Pulse Ox O2 Del Method 05/29/24 07:37 37.2 C 79 18 150/77 H 95 Room Air 05/29/24 04:36 36.6 C 76 18 153/76 H 98 Room Air 05/28/24 23:10 70 05/28/24 23:00 36.4 C L 72 16 137/76 98 Room Air PG Care Time/CCT Total # of Minutes Spent Total Time Spent with Patient: Total time spent is greater than 50% in coordination of care (as documented) at patient's floor/unit and/or counseling patient: Coding Level of Care Code 43529 SUB INP/OBS CARE 3/50MIN Diagnoses Sepsis due to urinary tract infection A41.9; N39.0 AMS (altered mental status) R41.82 History of CVA (cerebrovascular accident) Z86.73 Hypotension I95.9 Hypotension type: unspecified hypotension type Depression F32.A Generalized weakness R53.1 History of alcoholism F10.21 (4) Hypotension Hypotension type: unspecified hypotension type Qualified Code(s): I95.9 - Hypotension, unspecified
[2024-05-29 10:47] LABS: Adenovirus PCR Not Detected (NotDetected); Bordetella parapertussis PCR Not Detected (NotDetected); Bordetella pertussis PCR Not Detected (NotDetected); Chlamydia pneumoniae PCR Not Detected (NotDetected); Coronavirus 229E PCR Not Detected (NotDetected); Coronavirus CoV-2 (COVID19)PCR Not Detected (NotDetected); Coronavirus HKU1 PCR Not Detected (NotDetected); Coronavirus NL63 PCR Not Detected (NotDetected); Coronavirus OC43PCR Not Detected (NotDetected); Human Metapneumovirus PCR Not Detected (NotDetected); Influenza A PCR Not Detected (NotDetected); Influenza B PCR Not Detected (NotDetected); Mycoplasma pneumoniae PCR Not Detected (NotDetected); Parainfluenza Virus 1 PCR Not Detected (NotDetected); Parainfluenza Virus 2 PCR Not Detected (NotDetected); Parainfluenza Virus 3 PCR Not Detected (NotDetected); Parainfluenza Virus 4 PCR Not Detected (NotDetected); Respiratory Syncytial VirusPCR Not Detected (NotDetected); Rhinovirus/Enterovirus PCR Not Detected (NotDetected)
[2024-05-29] MEDS: LOSARTAN POTASSIUM 25 MG TAB PO SCH (11:05)
[2024-05-30 07:03] LABS: Albumin Level 3.8 gm/dl (3.4-5.0); Anion Gap 8 (3-11); BUN Creatinine Ratio 10.2 (10-20); Blood Urea Nitrogen 6 mg/dl (6-23); Calcium 8.7 mg/dl (8.6-10.3); Carbon Dioxide 23 mmol/L (21-32); Chloride 106 mmol/L (98-107); Glucose 90 mg/dl (70-99(Fasting)); Magnesium 1.6 mg/dl (1.7-2.4); Sodium 137 mmol/L (136-145)
[2024-05-30 07:27] LABS: Basophils # (auto) 0.02 K/uL (0.00-0.20); Basophils % (auto) 0.6 %; Eosinophils # (auto) 0.15 K/uL (0.00-0.50); Eosinophils % (auto) 4.3 %; Hemoglobin 11.9 g/dl (12.0-16.0); Immature Granulocytes # (auto) 0.01 K/uL (0.01-0.20); Immature Granulocytes % (auto) 0.3 %; Lymphocytes # (auto) 0.62 K/uL (1.20-3.40); Lymphocytes % (auto) 17.9 %; Mean Corpuscular Hemoglobin 33.4 pg (25.0-34.0); Mean Corpuscular Volume 95.5 fL (80.0-100.0); Mean Platelet Volume 8.4 fL (9.4-12.4); Monocytes # (auto) 0.38 K/uL (0.11-0.59); Neutrophils # (auto) 2.29 K/uL (1.40-6.50); Neutrophils % (auto) 65.9 %; Platelet Count 148 K/uL (130-400); Polychromasia 1+; RDW Coefficient of Variation 11.9 % (11.5-14.5); RDW Standard Deviation 41.8 fL (36.4-46.3); Red Blood Count 3.56 M/uL (4.20-5.40); White Blood Count 3.47 K/ul (4.8-10.8)
[2024-05-30 07:47] LABS: Potassium 3.5 mmol/L (3.5-5.1)
[2024-05-30] MEDS: PANTOprazole 40 MG TAB PO SCH (09:29)
--- NOTE | 2024-05-30 11:08 | Hospitalist Progress Note ---
Date of Service May 30, 2024 Assessment & Plan (1) Sepsis due to urinary tract infection: Plan: Sepsis with metabolic encephalopathy due to UTI; improved Presented with hypotension, lethargy and infected appearing UA Also with recent antihypertensive adjustments contributing to hypotension Rocephin 2 g IV daily continued No leukocytosis 05/28 UCx pending Blood cultures ND, deferred as likely sterilized by antibiotics, patient with clinical improvement, and in period of blood culture bottle shortage. patient is normotensive and not tachycardic on review CThead small vessel disease no acute findings; CTA head negative/CTneck 50% right ICA stenosis. Hx R craniotomy (2) AMS (altered mental status): Plan: AMS Received thiamine 300 x 1 and p.o. supplementation due to past history of alcohol use. Confirmed with patient and with patient's that she has not had any alcohol consumption in several years. Not at risk for alcohol withdrawal SSRI resumed due to risk of withdrawal CVA evaluation as above DDx includes metabolic encephalopathy of UTI/sepsis Suspect some element of delirium which is now clearing/cleared on reassess Continues to have diffuse muscle aches and myalgias for which with negative viral panel.? Whether this is due to the recent initiation of atorvastatin and whether this is statin myalgias. CK has been normal. Will hold atorvastatin and on discharge patient should transition to rosuvastatin to see if this helps. Additionally continues to be hypomagnesemic and borderline hypokalemic, these are repleted (3) History of CVA (cerebrovascular accident): Plan: No evidence of acute CVA on admission, suspect acute weakness due to UTI. On afternoon reassessment patient has worsened confusion and left-sided deficits. This may be recrudescence/worsening of her deficits from underlying UTI however does have a significant change compared to morning assessment. Given this we will repeat CThead, and follow-up MRI Patient was hypotensive on admission, and had antihypertensives adjusted in the last few months. She has been normotensive since this morning and afebrile. Does not appear to be w/cerebral hypoperfusion at time of bedside assessment with a BP of 140/80 CThead without acute findings. MRI without acute finding (4) Hypotension: Plan: Hypotension, resolved With UTI/sepsis as noted Recent medication changes with the switch from metoprolol to carvedilol one month ago, and losartan added a few months ago. Losartan held, Carvedilol was initially held this is resumed as patient normotensive and to minimize risk of beta-pascual withdrawal Losartan resumed 05/29 (5) Depression: Plan: Anxiety/depression Continue BuSpar, diazepam, fluoxetine, mirtazapine. Diazepam was transiently held for concerns of confusion, this has been resumed Continue trazodone at bedtime as needed (6) Generalized weakness: Plan: PT/OT pending (7) History of alcoholism: Plan: - In remission for many years Patient's confirms no alcohol use in several years, does drink Budweiser 0 nonalcoholic only Last INR 1.0. Patient could consider discussing with her outer diameter grinder whether or not she can use dose reduced Tylenol; she was counseled to avoid this entirely along with ibuprofen due to her underlying history of cirrhosis however she is alcohol free with normal liver enzymes and normal albumin/INR. Given this likely reasonable to use acetaminophen at a dose reduced 2 g daily However patient prefers to defer this and will follow-up for additional recommendations as outpatient. Limited analgesic options given NSAID intolerance. 1 dose of oxycodone ordered for severe cramps and discomfort; risk of precipitating delirium and hypotension given underlying chronic history of diazepam use. (8) Pancytopenia: Plan: With multiple prior workups, initially thought to be related to cirrhosis however this is doing well and with no recent alcohol use to cause suppression. Has continued pancytopenia, did have last follow-up 03/2024 and was suggested for bone marrow biopsy to evaluate for potential underlying MDS. Recommend continuing follow-up for this, nurse navigator consulted to help facilitate follow-up with heme-onc hemoglobin is 11.9 at admission, ANC is greater than 1 and no indication for acute transfusion. Recommend following up as outpatient Plan DVT prophylaxis: Lovenox CODE STATUS: Full code Diet: Heart healthy Admission and Anticipated Discharge Date Admission Date: May 27, 2024 Subjective Seen at the bedside. She reports she feels much better but still weaker than normal, and she has diffuse body aches in her arms and legs which are not improving. She feels her mentation is at baseline and feels she has not been confused overnight. No fever chills or sweats. No chest pain or chest pressure. Did review use of Tylenol extensively. Per last GI note review was okay to use Tylenol up to 2 g limit. She has had no alcohol use in several years, and on shared decision making would like to try dose reduced to Tylenol up to a 2000 mg total daily dose cap. Physical Exam Physical Exam: General: Alert and oriented x 3. thought process linear, with patient well- oriented on morning visit HEENT: Atraumatic, normocephalic. Pupils equal and reactive to light and accommodation Pulm: CTAB A&P. -wheezes, -rales, -rhonchi. Symmetrical chest rise. No increased work of breathing. No respiratory distress. Cardiac: RRR, -mrg. Radial pulses intact and symmetrical. Abdominal: Nontender, nondistended, soft. BS present.. Extremities: Moves upper extremities equally at bedside today. Sensation in hands and feet intact to soft touch Results & Data Results & Data Vital Signs (Past 12 Hours) Vital Signs Temp Pulse Resp BP Pulse Ox O2 Del Method 05/30/24 03:12 36.7 C 73 18 134/78 99 Room Air PG Care Time/CCT Total # of Minutes Spent Total Time Spent with Patient: Total time spent is greater than 50% in coordination of care (as documented) at patient's floor/unit and/or counseling patient: Coding Level of Care Code 49297 SUB INP/OBS CARE 3/50MIN Diagnoses Sepsis due to urinary tract infection A41.9; N39.0 AMS (altered mental status) R41.82 History of CVA (cerebrovascular accident) Z86.73 Hypotension I95.9 Hypotension type: unspecified hypotension type Depression F32.A Generalized weakness R53.1 History of alcoholism F10.21 Pancytopenia D61.818 (4) Hypotension Hypotension type: unspecified hypotension type Qualified Code(s): I95.9 - Hypotension, unspecified
[2024-05-30] MEDS: oxyCODONE HCL IR 5 MG TAB (IMMEDIATE RELEASE) PO STA (11:26)
[2024-05-30 11:30] LABS: C Reactive Protein < 0.50 mg/dl (0-0.5)
[2024-05-30] MEDS: POTASSIUM CHLORIDE 20 MEQ/15 ML UDC PO STA (12:17)
[2024-05-30] MEDS: MAGNESIUM SULFATE / D5W 1 GM/100 ML BAG IV SCH (15:10)
[2024-05-30] MEDS: ACETAMINOPHEN 325 MG TAB PO PRN (18:33)
[2024-05-30] MEDS: traZODone HCL 50 MG TAB PO PRN (20:13)
[2024-05-31 06:07] LABS: Basophils # (auto) 0.02 K/uL (0.00-0.20); Basophils % (auto) 0.7 %; Eosinophils # (auto) 0.22 K/uL (0.00-0.50); Eosinophils % (auto) 8.1 %; Hematocrit (blood only) 33.5 % (37.0-47.0); Hemoglobin 11.6 g/dl (12.0-16.0); Immature Granulocytes # (auto) 0.01 K/uL (0.01-0.20); Immature Granulocytes % (auto) 0.4 %; Lymphocytes # (auto) 0.79 K/uL (1.20-3.40); Mean Corpuscular Hgb Conc 34.6 g/dL (32.0-36.0); Mean Corpuscular Volume 95.2 fL (80.0-100.0); Mean Platelet Volume 8.6 fL (9.4-12.4); Monocytes # (auto) 0.45 K/uL (0.11-0.59); Monocytes % (auto) 16.5 %; Neutrophils # (auto) 1.23 K/uL (1.40-6.50); Neutrophils % (auto) 45.3 %; Platelet Count 124 K/uL (130-400); RDW Standard Deviation 41.8 fL (36.4-46.3); Red Blood Count 3.52 M/uL (4.20-5.40); White Blood Count 2.72 K/ul (4.8-10.8)
[2024-05-31 06:16] LABS: BUN Creatinine Ratio 8.9 (10-20); Calcium 8.3 mg/dl (8.6-10.3); Creatinine Clr Calc Pharmacy 93.8 ml/min; Potassium 3.6 mmol/L (3.5-5.1)
[2024-05-31 07:55] VITALS: BP 134/85; RESP 18; TEMP 98.1; O2SAT 97
[2024-05-31] MEDS: oxyCODONE HCL IR 5 MG TAB (IMMEDIATE RELEASE) PO PRN (09:18)
--- NOTE | 2024-05-31 10:33 | Discharge Summary ---
Discharge Summary Date of Service May 31, 2024 Principal Dx & Hospital Course #1 = Principal Diagnosis (1) Sepsis due to urinary tract infection: Present on admission. Now resolved (2) AMS (altered mental status): Acute metabolic encephalopathy present on admission. Now resolved (3) History of CVA (cerebrovascular accident): Nothing acute. Supportive care (4) Hypotension: Transient hypotension present on admission. Resolved with intravenous fluid resuscitation. No pressor support needed. Antihypertensive medications were transiently held then restarted this admission (5) Depression: Stable. Continue current medical management (6) Generalized weakness: Present on admission. Now resolved (7) History of alcoholism: In remission for many years. Supportive care (8) Pancytopenia: multiple prior workups. Nothing acute. Plan Home todayMay 31 Admission HPI Per Admitting Provider The patient is a 64-year-old female with a past medical history including depression, recurrent falls, generalized weakness, history of CVA, vitamin D deficiency, hyponatremia, urinary incontinence, episodes of speech arrest and staring, ambulatory dysfunction, chronic pain disorder, encephalopathy, COPD, alcoholism, chronic pancreatitis, nonischemic cardiomyopathy, and seizure disorder. Recent admissions to [facility]: 03/26-03/29/2024, 04/26-04/30/2024, 05/05-05/06/2024, and 05/11-05/13/2024. She was admitted to [facility] from 05/13-05/22/2024, after which her significant other reports that the patient had been doing much better. She had a first day of physical therapy yesterday, and did well with that. She had a first day of occupational therapy today, and was noted by the therapist to be confused, who then notified her significant other, who then made arrangements for EMS to bring patient to the ED. Discharge Exam General-alert and oriented x3, no fever, no chills HEENT-head atraumatic and normocephalic, pupils equal and reactive to light, extraocular muscles intact Neck-no lymphadenopathy or thyromegaly, trachea midline Chest-clear to auscultation. No rales, wheezing or rhonchi Cardiac-regular rate and rhythm, normal S1 and S2 Abdomen-normal bowel sounds, no hepatosplenomegaly Extremities-no cyanosis, clubbing, or edema Neuro-cranial nerves II through XII intact, motor and sensory function within normal limits, strength symmetrical, no focal deficits Psych-normal affect, normal mood Discharge Plan Discharge Items Patient Disposition: Home - Home Health Services Reason For Visit: SEPSIS DUE TO UTI, CONFUSION, LETHARGY Discharge Diagnosis: Urinary tract infection, metabolic encephalopathy, sepsis, transient hypotension Activity: Resume your previous activity Non-emergency contact: Primary Care Provider Call non-emergency contact if: you have any medication questions and your symptoms worsen Follow-up/Referrals: Swetha Newberry DO [Primary Care Provider] - Diet: Regular Addtl Attending Provider Instructions: Antibiotic course has been completed while hospitalized. No new medications at this time Pending Studies at Discharge: No Stand-Alone Forms: My [employer] Safety Services, Smoking Cessation Medications and DC Order Prescriptions: Continued calcium carbonate-vitamin D3 [Calcium 600 with Vitamin D3] 600 mg-12.5 mcg (500 unit) capsule 2 cap PO QAM Hold Instructions: SURGERY nystatin 100,000 unit/gram cream 1 applic topical UD PRN (Reason: Skin Irritation) losartan 25 mg tablet 25 mg PO BID rizatriptan 10 mg tablet,disintegrating 10 mg PO DIRECTED MDD 3 DOSES/24 HOURS PRN (Reason: Migraine Headache) Rx Instructions: TAKE 10 MG AT ONSET OF YEPEZ, THEN REPEAT IN 2 HOURS IF NEEDED. MAX 3 DOSES/24 HOURS. omeprazole 40 mg capsule,delayed release(DR/EC) 40 mg PO DAILY alendronate 35 mg tablet 35 mg PO WK Rx Instructions: Pt usually takes on Friday mornings, but forgot to take it on 04/25/24 so she took it on the morning of 04/26/24 buspirone 30 mg tablet 30 mg PO BID diazepam 5 mg tablet 5 mg PO BID PRN (Reason: Anxiety) sodium chloride 1,000 mg tablet,soluble 1,000 mg PO BID mirtazapine 15 mg Tablet 15 mg PO HS Qty: 30 0RF docusate sodium 100 mg Capsule 100 mg PO BID fluoxetine 40 mg capsule 80 mg PO 1XD carvedilol 3.125 mg tablet 3.125 mg PO BID trazodone 150 mg tablet 225 mg PO HS PRN (Reason: Insomnia) oxycodone 5 mg tablet 7.5 mg PO Q6H PRN (Reason: Pain) atorvastatin 40 mg Tablet 40 mg PO QAM Qty: 30 0RF aspirin 81 mg Tablet,Delayed Release (Dr/Ec) 81 mg PO DAILY Qty: 30 0RF Discharge Orders: Discharge Order (Routine); Ordered 05/31/24 Ordered By: Oseas Ruano Admission Data Admit Date/Time: 05/27/24 22:10 Attending Provider: Oseas Ruano Admit Provider: Timmy Bruno Primary Care Provider: Swetha Newberry Other Providers: Timmy Bruno Hospital Stay Data Consultations 05/27/24 21:44 ED Decision to Admit Stat 05/30/24 14:14 Consult [facility] clay temperer Routine Diagnostic Imagining Performed 05/27/24 16:29 CT angio head w con Stat CT angio neck with con Stat CT head/brain wo con Stat 05/28/24 16:39 MRI Brain [MR brain wo con] Routine 05/28/24 17:02 CT head/brain wo con Stat Pending Results Patient Have Any Pending Studies at Discharge: No Discharge Instructions Given to Patient (Per Discharging Provider) Antibiotic course has been completed while hospitalized. No new medications at this time Total Time Total Time Spent Total Time Spent (In Minutes): 45 minutes Coding Level of Care Code 20253 INP/OBS DISCH >30 MIN Diagnoses Sepsis due to urinary tract infection A41.9; N39.0 AMS (altered mental status) R41.82 History of CVA (cerebrovascular accident) Z86.73 Hypotension I95.9 Hypotension type: unspecified hypotension type Depression F32.A Generalized weakness R53.1 History of alcoholism F10.21 Pancytopenia D61.818
[2024-05-31 11:01] VITALS: PULSE 76
== END 2024-05-31 12:07 | disposition home health service (06) | DRG 871 ==
LOC: ED 15:54 → SUATTDRO 22:10 → EDINP 22:10 → 2S 05-28 14:59

== ENCOUNTER 2025-01-06 14:16 | Inpatient (IN) ==
[2025-01-06 15:40] LABS: Basophils # (auto) 0.02 K/uL (0.00-0.20); Basophils % (auto) 0.3 %; Eosinophils # (auto) 0.06 K/uL (0.00-0.50); Eosinophils % (auto) 0.8 %; Hematocrit (blood only) 44.7 % (37.0-47.0); Hemoglobin 16.3 g/dl (12.0-16.0); Immature Granulocytes # (auto) 0.02 K/uL (0.01-0.20); Immature Granulocytes % (auto) 0.3 %; Lymphocytes # (auto) 1.13 K/uL (1.20-3.40); Lymphocytes % (auto) 15.2 %; Mean Corpuscular Hemoglobin 33.9 pg (25.0-34.0); Mean Corpuscular Hgb Conc 36.5 g/dL (32.0-36.0); Mean Corpuscular Volume 92.9 fL (80.0-100.0); Mean Platelet Volume 8.5 fL (9.4-12.4); Monocytes # (auto) 0.49 K/uL (0.11-0.59); Monocytes % (auto) 6.6 %; Neutrophils % (auto) 76.8 %; Platelet Count 145 K/uL (130-400); RDW Coefficient of Variation 13.1 % (11.5-14.5); RDW Standard Deviation 44.2 fL (36.4-46.3); Red Blood Count 4.81 M/uL (4.20-5.40); White Blood Count 7.42 K/ul (4.8-10.8)
--- NOTE | 2025-01-06 16:05 | Emergency Department Note ---
Impression & Plan Intractable vomiting with nausea, Hypomagnesemia, Chronic pancreatitis, Lumbar spinal stenosis, Chronic back pain ED Provider Note NAME: JUHI WHITFIELD AGE: 64 SEX: F : 1960 ARRIVES VIA: Ambulance INFORMANT: Patient ED PROVIDER(S): Keenan Churchill MD CHIEF COMPLAINT: Dehydration, weakness, referred PLAN: Disposition: Admit MEDICAL DECISION MAKING: The patient is a pleasant 64-year-old woman with a past medical history of cirrhosis, remote alcoholism with last drink in 2021, chronic pancreatitis, nonischemic cardiomyopathy who presents emergency department via EMS and coming by her partner for evaluation of ongoing poor oral intake with nausea and vomiting seen by her PCP office and referred to the emergency department for further management in the setting of being discharged from this facility yesterday following admission for similar symptoms where she had unremarkable CT imaging of her abdomen pelvis on 01/02 and 01/04. Patient adds that she has had chronic back pain for which she is scheduled to have surgery in January. She takes morphine for this. She denies loss of bowel control or urinary retention. She reports feeling chills but denies any measured fevers. On evaluation the patient is uncomfortable no acute distress, afebrile with blood pressure 140/100 and vital signs otherwise stable. She appears clinically dry. She exhibits generalized abdominal discomfort without discrete tenderness. EKG without overt acute ischemia. CXR negative for acute cardiopulmonary process and KUB demonstrates nonobstructive bowel gas pattern per my personal preliminary review/interpretation. WBC within normal limits. H/H 16.3/44.7 increased from prior likely reflecting component of hemoconcentration., Platelets within normal limits. INR 1.2. Chemistry with mild metabolic acidosis with bicarbonate of 17 and anion gap of 16. Lactic acid 1.1, within normal limits. Magnesium 1.6 with IV repletion provided. LFTs with total bilirubin 1.2 and direct bilirubin 0.3 however LFTs otherwise normal. Lipase is not elevated. Procalcitonin is undetectable. Treatment provided with IV fluid hydration, IV famotidine, IV Zofran as well as morphine due to patient's inability to tolerate oral intake in setting of her chronic pain on morphine at home. Patient and her partner agree with plan for admission for further management. Findings, return instructions, and plan for follow-up reviewed with patient. The patient was agreeable and was discharged per instructions. Further management per admitting team. Triage Nursing notes reviewed and agree them. Prior/external medical records reviewed Vital Signs: reviewed Differential diagnosis: Infection, dehydration, metabolic abnormality, hypo/hyperglycemia, electrolyte disturbance, anemia, hypoxia, cardiac sources, intracerebral event, toxicologic, neurologic, as well as other pathologies. ER treatment provided: See below. Diagnostics interpreted by me: ECG: Normal sinus rhythm, 74 bpm, no ectopy, ST and T wave abnormality, no overt ST elevation or depression, QTc 497, QRS 76 Cardiac Monitoring: An order for continuous cardiac monitoring was placed and demonstrated Laboratory studies: See below Imaging studies: See below Consultation(s): Dr. Sam, [facility] [place]. HPI: Per MDM. ROS: See above HPI for pertinent positives & negatives. A total of 10 systems reviewed and were otherwise negative. VITALS:See Below PHYSICAL EXAMINATION: GENERAL: Awake, alert, fatigued-appearing, in no distress HENT: Normocephalic, atraumatic. Oropharynx with dry mucous membranes and otherwise unremarkable. EYES: Normal conjunctiva. Sclera non-icteric. NECK: Supple. No nuchal rigidity. FROM. No JVD. RESPIRATORY: Clear to auscultation. CARDIAC: Regular rate, normal rhythm. Extremities warm and well perfused. Pulses equal. ABDOMEN: Soft, non-distended. Generalized discomfort without disicrete tenderness to palpation. No rebound or guarding. No masses. MUSCULOSKELETAL: Chest examination reveals no tenderness. The back is symmetrical on inspection without obvious abnormality. There is no CVA tenderness to palpation. No joint edema. LOWER EXTREMITIES: Calves are equal size bilaterally and non-tender. No edema. No discoloration. NEURO: Normal sensorium. No sensory or motor deficits noted. SKIN: No rash or jaundice noted. Keenan Churchill MD Past Med/Surg History Problem List (Updated 01/07/25 @ 00:27 by Keenan Churchill MD) Chronic back pain (Acute) Lumbar spinal stenosis (Acute) Hypomagnesemia (Acute) Cognitive impairment Polypharmacy History of alcohol use disorder Anorexia Degenerative joint disease (DJD) of lumbar spine Severe lumbar pain Intractable abdominal pain (Acute) Hypokalemia due to excessive gastrointestinal loss of potassium (Acute) Intractable vomiting with nausea (Acute) Abdominal pain (Acute) Vomiting (Acute) Positive ROSANGELA (antinuclear antibody) Mitral regurgitation Tricuspid regurgitation Recurrent falls (Acute) Vitamin D deficiency Diarrhea Neutropenia Hyponatremia with decreased serum osmolality Encounter for pre-operative examination Lumbar spondylosis Thrombocytopenia (Acute) Spinal stenosis Elevated LFTs Ambulatory dysfunction (Acute) Hypocalcemia Anemia Leukopenia Metabolic acidosis (Acute) COPD (chronic obstructive pulmonary disease) pt denies Alcoholism (Acute) Chronic pancreatitis (Acute) Nonischemic cardiomyopathy Uterine leiomyoma (Chronic 07/18/11) 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/11) Hypomagnesemia Medical History Cirrhosis History of CVA (cerebrovascular accident) 04/28/24, "mild"/slight confusion residual per COPD (chronic obstructive pulmonary disease) Per records denies, "never diagnosed with this" Non-ischemic cardiomyopathy Chronic hyponatremia Per Nephro note 04/21/24: "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 These have been stopped... 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 These have been stopped" Spinal stenosis GERD (gastroesophageal reflux disease) Lumbar facet joint syndrome Lumbar spondylosis Hx of gastritis No recent/current issues Hx of tinnitus Hx of migraines Pulmonary hypertension Noted per remote records Most recent Echo 03/25/2024 with normal estimated RVSP at 31mmhg Seasonal allergies Hx of chronic pancreatitis Per records History of anemia Chronic pain disorder Back Positive ROSANGELA (antinuclear antibody) Stress incontinence Chronic cough Follows with [facility] pulm "Due to pollen" Usually during spring/summer HTN (hypertension) Osteoarthritis History of seizure (2010) Following subdural hematoma 2010 from fall Most recent seizure 2022 Pt follows with [facility] Neuro; per 01/01/24 Neuro note, pt had "episode of speech and movement arrest in the context of a history of posttraumatic seizures" 04/2023. Had normal EEG. Pt advised by neuro to start keppra but pt refused. Surgical History History of bone marrow biopsy (06/2024) [facility] History of craniotomy (2010) R/t subdural hematoma from fall Hx of hysterectomy Hx of cholecystectomy History of carpal tunnel release R/L Hx of arthroscopy of shoulder Right Hx of arthroscopy of left knee S/P cervical spinal fusion C4-C7 per imaging review, ~2007 History of onel hole surgery (2010) > craniotomy History of esophagogastroduodenoscopy (EGD) History of colonoscopy Family History (Updated 01/06/25 @ 22:19 by Jose Sam MD) Mother , age 82 - uncertain cause Hypertension Other No family history of adverse response to anesthesia Social History (Updated 01/06/25 @ 22:21 by Jose Sam MD) Smoking Status: Former smoker Tobacco Type: Cigarettes Age Started Using Tobacco: 18; Age Quit Using Tobacco: 30; packs per day: 1; Second Hand Exposure: No; Do You Dip or Chew Tobacco: No; Hx Alcohol Use: No Hx Substance Use: Yes Substance Use Type Other:: does not have her own medical THC card; uses spouse's medical THC 1x/week Preferred Language: Bahamian Communication Ability: Effective Supervisor Drying And Softening Required: No Beliefs That Will Affect Care: None marital status: Current Living Situation: Spouse Current Living Situation Comment: Lives at home with . 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 Feels Safe at Home: Yes Assistive Devices: None Allergies Allergies Allergy/AdvReac Type Severity Reaction Status Date / Time brexpiprazole [From Rexulti] Allergy Severe "Makes me Verified 01/02/25 11:47 very lofty" aripiprazole AdvReac Severe Seizure Verified 01/02/25 11:47 activity per [facility] EMR gabapentin AdvReac Severe Confusion Verified 01/02/25 11:47 ibuprofen AdvReac Severe Per [facility] Verified 01/02/25 11:47 EMR to be avoided given cirrhosis Home Meds Home Medications Medication Instructions Recorded Confirmed rizatriptan 10 mg disintegrating 10 mg PO UD PRN Migraine Headache 11/21/21 01/06/25 tablet ([employer]) calcium 600 mg (as 2 cap PO QAM 08/02/22 01/06/25 carbonate)-vitamin D3 12.5 mcg (500 unit) capsule (Calcium with Vit D3) alendronate 35 mg tablet 35 mg PO Q7D 04/20/23 01/06/25 buspirone 30 mg tablet 30 mg PO BID 04/20/23 01/06/25 omeprazole 40 mg capsule,delayed 40 mg PO QAM gerd 04/20/23 01/06/25 release losartan 25 mg tablet 25 mg PO QAM 07/31/23 01/06/25 carvedilol 3.125 mg tablet 3.125 mg PO BID 04/26/24 01/06/25 fluoxetine 40 mg capsule (Prozac) 40 mg PO QAM 04/26/24 01/06/25 acetaminophen 500 mg tablet 500 mg PO QID 06/18/24 01/06/25 aspirin 81 mg tablet,delayed 81 mg PO QAM 06/18/24 01/06/25 release multivitamin 1 tab PO QAM 06/18/24 01/06/25 potassium 99 mg tablet 99 mg PO QAM 06/18/24 01/06/25 mirtazapine 15 mg tablet (Remeron) 15 mg PO HS 06/23/24 01/06/25 cyclobenzaprine 5 mg tablet 5 mg PO HS PRN Muscle Spasm 09/22/24 01/06/25 diazepam 5 mg tablet 5 mg PO BID PRN Anxiety 09/22/24 01/06/25 ferrous sulfate 325 mg (65 mg 325 mg PO QAM 09/22/24 01/06/25 iron) tablet (iron) oxycodone 5 mg tablet 7.5 mg PO Q6H PRN Pain 09/22/24 01/06/25 magnesium 250 mg tablet 250 mg PO QAM 11/01/24 01/06/25 nystatin 100,000 unit/gram topical 1 applic topical BID 11/29/24 01/06/25 powder nystatin 100,000 unit/gram topical 1 applic topical TID 11/29/24 01/06/25 powder Previous Rx's Medication Instructions Recorded atorvastatin 40 mg tablet 40 mg PO QAM #30 tabs 04/30/24 baclofen 10 mg tablet 10 mg PO TID #90 tabs 11/01/24 sodium chloride 1,000 mg soluble 1,000 mg PO BID #60 tabs 12/02/24 tablet lodovz-tirmhesz-jwuoswe 1 cap PO AC #30 caps 01/05/25 36,000-114,000-180,000 unit capsule,delay rel (Creon) ondansetron 4 mg disintegrating 4 mg PO DAILY PRN nausea and 01/05/25 tablet vomiting 4 days #14 tabs Results & Data (ED) Vital Signs Vital Signs - 24 hr 01/06/25 14:46 01/06/25 16:10 01/06/25 16:11 Temperature 36.4 C L Temperature Source Oral Pulse Rate 82 77 Pulse Rate [Apical] 72 Respiratory Rate 22 20 Respiratory Effort / Characteristics Non-Labored Spontaneous Respiratory Depth Normal Respiratory Pattern Regular Blood Pressure 153/93 H Blood Pressure [Left Arm] 146/109 H Blood Pressure Mean 113 Blood Pressure Mean [Left Arm] 121 Blood Pressure Position [Left Arm] Lying Pulse Oximetry 98 100 Oxygen Delivery Method Room Air Room Air Sepsis Recent Fever Within 48 Hours No Sepsis New/Unexplained Change in Mental Status No Sepsis Action Taken by Nursing No Action Required 01/06/25 17:31 01/06/25 19:38 Temperature Temperature Source Pulse Rate 87 Pulse Rate [Apical] 76 Respiratory Rate 20 Respiratory Effort / Characteristics Respiratory Depth Respiratory Pattern Blood Pressure Blood Pressure [Left Arm] 123/78 Blood Pressure Mean Blood Pressure Mean [Left Arm] 93 Blood Pressure Position [Left Arm] Pulse Oximetry 100 Oxygen Delivery Method Room Air Sepsis Recent Fever Within 48 Hours Sepsis New/Unexplained Change in Mental Status Sepsis Action Taken by Nursing Laboratory Data 01/06/25 14:27 01/06/25 14:27 Lab Results 01/06/25 01/06/25 01/06/25 Range/Units 14:27 16:20 17:08 WBC 7.42 (4.8-10.8) K/ul RBC 4.81 (4.20-5.40) M/uL Hgb 16.3 H (12.0-16.0) g/dl Hct 44.7 (37.0-47.0) % MCV 92.9 (80.0-100.0) fL MCH 33.9 (25.0-34.0) pg MCHC 36.5 H (32.0-36.0) g/dL RDW Std Deviation 44.2 (36.4-46.3) fL RDW Coeff of [place] 13.1 (11.5-14.5) % Plt Count 145 D (130-400) K/uL MPV 8.5 L (9.4-12.4) fL Immature Gran % (Auto) 0.3 % Neut % (Auto) 76.8 % Lymph % (Auto) 15.2 % [place] % (Auto) 6.6 % Eos % (Auto) 0.8 % Baso % (Auto) 0.3 % Neut # (Auto) 5.70 (1.40-6.50) K/uL Lymph # (Auto) 1.13 L (1.20-3.40) K/uL [place] # (Auto) 0.49 (0.11-0.59) K/uL Eos # (Auto) 0.06 (0.00-0.50) K/uL Baso # (Auto) 0.02 (0.00-0.20) K/uL Immature Gran # (Auto) 0.02 (0.01-0.20) K/uL PT 12.4 H (9.0-12.0) Seconds INR 1.2 H (0.9-1.1) Sodium 136 (136-145) mmol/L Potassium 3.9 (3.5-5.1) mmol/L Chloride 103 (98-107) mmol/L Carbon Dioxide 17 L (21-32) mmol/L Anion Gap 16 H (3-11) BUN 5 L (6-23) mg/dl Creatinine 0.85 (0.6-1.2) mg/dl Est Cr Clr Drug Dosing Not Reportable eGFR 75.98 BUN/Creatinine Ratio 5.9 L (10-20) Glucose 89 (70-99(Fasting)) mg/dl Lactate 1.1 (0.4-2.0) mmol/L Calcium 10.3 (8.6-10.3) mg/dl Phosphorus 1.7 L (2.5-4.9) mg/dl Magnesium 1.6 L (1.7-2.4) mg/dl Total Bilirubin 1.2 H D (0.2-1.0) mg/dl Direct Bilirubin 0.3 H (0-0.2) mg/dl AST 25 (13-39) U/L ALT 20 (7-52) U/L Alkaline Phosphatase 58 (34-104) U/L Total Protein 8.3 D (6.0-8.3) gm/dl Albumin 5.1 H (3.4-5.0) gm/dl Globulin 3.2 (2.5-4.0) gm/dl Albumin/Globulin Ratio 1.6 (0.9-2) Lipase 44 (11-82) U/L Procalcitonin < 0.02 (0-0.5) ng/ml Urine Color Urine Appearance (Clear) Urine pH (4.5-7.5) Ur Specific [place] (1.000-1.030) Urine Protein (Negative) Urine Glucose (UA) (Negative) Urine Ketones (Negative) Urine Blood (Negative) Urine Nitrite (Negative) Urine Bilirubin (Negative) Urine Urobilinogen (Negative) Ur Leukocyte Esterase (Negative) Urine WBC (Auto) (0-5) /hpf Urine RBC (Auto) (0-2) /hpf U Hyaline Cast (Auto) (0-2) /lpf U Epithel Cells (Auto) (0-2) /hpf Urine Bacteria (Auto) (None Seen) Urine Mucus (None Prsent) Urine Comment Urine Opiates Screen (Neg) Ur Methadone, Qual (Neg) Urine Fentanyl Screen (Neg) Urine Barbiturates (Neg) Ur Phencyclidine (PCP) (Neg) U Amphetamin/Meth Scrn (Neg) MDMA (Ecstasy) Screen (Neg) U Benzodiazepines Scrn (Neg) Ur Cocaine Metabolite (Neg) U Marijuana (THC) Screen (Neg) Ethyl Alcohol mg/dL < 10.0 (<10.0) mg/dl 01/06/25 Range/Units 18:33 WBC (4.8-10.8) K/ul RBC (4.20-5.40) M/uL Hgb (12.0-16.0) g/dl Hct (37.0-47.0) % MCV (80.0-100.0) fL MCH (25.0-34.0) pg MCHC (32.0-36.0) g/dL RDW Std Deviation (36.4-46.3) fL RDW Coeff of [place] (11.5-14.5) % Plt Count (130-400) K/uL MPV (9.4-12.4) fL Immature Gran % (Auto) % Neut % (Auto) % Lymph % (Auto) % [place] % (Auto) % Eos % (Auto) % Baso % (Auto) % Neut # (Auto) (1.40-6.50) K/uL Lymph # (Auto) (1.20-3.40) K/uL [place] # (Auto) (0.11-0.59) K/uL Eos # (Auto) (0.00-0.50) K/uL Baso # (Auto) (0.00-0.20) K/uL Immature Gran # (Auto) (0.01-0.20) K/uL PT (9.0-12.0) Seconds INR (0.9-1.1) Sodium (136-145) mmol/L Potassium (3.5-5.1) mmol/L Chloride (98-107) mmol/L Carbon Dioxide (21-32) mmol/L Anion Gap (3-11) BUN (6-23) mg/dl Creatinine (0.6-1.2) mg/dl Est Cr Clr Drug Dosing eGFR BUN/Creatinine Ratio (10-20) Glucose (70-99(Fasting)) mg/dl Lactate (0.4-2.0) mmol/L Calcium (8.6-10.3) mg/dl Phosphorus (2.5-4.9) mg/dl Magnesium (1.7-2.4) mg/dl Total Bilirubin (0.2-1.0) mg/dl Direct Bilirubin (0-0.2) mg/dl AST (13-39) U/L ALT (7-52) U/L Alkaline Phosphatase (34-104) U/L Total Protein (6.0-8.3) gm/dl Albumin (3.4-5.0) gm/dl Globulin (2.5-4.0) gm/dl Albumin/Globulin Ratio (0.9-2) Lipase (11-82) U/L Procalcitonin (0-0.5) ng/ml Urine Color Yellow Urine Appearance Clear (Clear) Urine pH 6.5 (4.5-7.5) Ur Specific [place] 1.013 (1.000-1.030) Urine Protein Negative (Negative) Urine Glucose (UA) Negative (Negative) Urine Ketones 3+ H (Negative) Urine Blood Negative (Negative) Urine Nitrite Negative (Negative) Urine Bilirubin Negative (Negative) Urine Urobilinogen Negative (Negative) Ur Leukocyte Esterase 1+ H (Negative) Urine WBC (Auto) 6-10 H (0-5) /hpf Urine RBC (Auto) >20 H (0-2) /hpf U Hyaline Cast (Auto) 0-2 (0-2) /lpf U Epithel Cells (Auto) 0-2 (0-2) /hpf Urine Bacteria (Auto) None Seen (None Seen) Urine Mucus Present A (None Prsent) Urine Comment Urine Opiates Screen Pos H (Neg) Ur Methadone, Qual Neg (Neg) Urine Fentanyl Screen Neg (Neg) Urine Barbiturates Neg (Neg) Ur Phencyclidine (PCP) Neg (Neg) U Amphetamin/Meth Scrn Neg (Neg) MDMA (Ecstasy) Screen Neg (Neg) U Benzodiazepines Scrn Pos H (Neg) Ur Cocaine Metabolite Neg (Neg) U Marijuana (THC) Screen Pos H (Neg) Ethyl Alcohol mg/dL (<10.0) mg/dl Administered Medications Acetaminophen (Acetaminophen 500 Mg Tab) 500 mg PO TID LAURA Stop: 02/05/25 21:08 Last Admin: 01/06/25 21:21 Dose: 500 mg Documented By: BMS Buspirone HCl (Buspirone 15 Mg Tab) 15 mg PO BID LAURA Stop: 02/05/25 21:08 Last Admin: 01/06/25 22:13 Dose: 15 mg Documented By: BMS Carvedilol (Carvedilol 3.125 Mg Tab) 3.125 mg PO BID LAURA Stop: 02/05/25 21:08 Last Admin: 01/06/25 22:13 Dose: 3.125 mg Documented By: KOMAL Sodium Chloride (Nss) 1,000 mls @ 80 mls/hr IV .[id number] LAURA Stop: 01/07/25 07:14 Last Admin: 01/06/25 19:11 Dose: 80 mls/hr Documented By: QGV Mirtazapine (Mirtazapine Tab 15 Mg Tab) 7.5 mg PO HS LAURA Stop: 02/05/25 21:08 Last Admin: 01/06/25 22:12 Dose: 7.5 mg Documented By: KOMAL Nystatin (Nystatin Powder 15gm Btl) 1 appln EXT TID LAURA Stop: 02/05/25 21:08 Last Admin: 01/06/25 22:14 Dose: 1 appln Documented By: BMS Discontinued Medications Sodium Chloride (Nss) 1,000 mls @ 999 mls/hr IV .[id number] ONE Stop: 01/06/25 17:05 Last Infusion: 01/06/25 17:48 Dose: Infused Documented By: Admin: 01/06/25 16:28 Dose: 999 mls/hr Documented By: QGV Magnesium Sulfate/Dextrose (Magnesium Sulfate / D5w) 1 gm in 100 mls @ 100 mls/hr IV NOW STA Stop: 01/06/25 17:31 Last Infusion: 01/06/25 18:29 Dose: Infused Documented By: Admin: 01/06/25 17:04 Dose: 100 mls/hr Documented By: QGV Famotidine (Pepcid 20mg Iv Push) 20 mg in 5 mls @ 2.5 mls/min IV NOW STA Stop: 01/06/25 16:56 Last Admin: 01/06/25 17:04 Dose: 2.5 mls/min Documented By: QGV Pantoprazole Sodium (Protonix) 40 mg in 10 mls @ 5 mls/min IV NOW ONE Stop: 01/06/25 18:36 Last Admin: 01/06/25 19:11 Dose: 5 mls/min Documented By: QGV Morphine Sulfate (Morphine Sulfate 4 Mg/Ml 1 Ml Carp\\Vial) 4 mg IV NOW STA Stop: 01/06/25 16:56 Last Admin: 01/06/25 17:04 Dose: 4 mg Documented By: QGV Ondansetron HCl (Ondansetron Inj 2 Mg/Ml 2 Ml Vial) 4 mg IV NOW STA Stop: 01/06/25 16:56 Last Admin: 01/06/25 17:04 Dose: 4 mg Documented By: QGV Oxycodone HCl (Oxycodone Hcl Ir 5 Mg Tab (Immediate Release)) 5 mg PO NOW STA Stop: 01/06/25 19:14 Last Admin: 01/06/25 19:59 Dose: 5 mg Documented By: QGV Imaging Data Radiologist's Impression: Chest X-Ray 01/06/25 16:55 Clinical History: Chills and nausea Technique: A frontal view of the chest was obtained Comparison is made to the prior examination dated 12/13/2024 Findings: There are no confluent pulmonary infiltrates. The heart size is within normal limits. No pleural effusion or pneumothorax is seen. There is no definite pulmonary nodule. No fracture is noted. There is thoracic scoliosis and degenerative disc disease. There is a cervical fusion Impression: No active disease Electronically signed by Khang Leal 01-06-2025 5:54 PM KUB X-Ray 01/06/25 16:55 Clinical history: Pain One view of the abdomen was obtained Findings: There are mildly prominent air-filled loops of small and large bowel, which may be due to ileus. Obstruction is less likely. No renal or ureteral calculi are seen. No foreign body is evident. There is lumbar scoliosis and degenerative disc disease. Surgical clips are seen consistent with prior cholecystectomy Impression: Possible mild ileus Electronically signed by Khang Leal 01-06-2025 5:56 PM Discharge Plan Visit Data Chief Complaint: Dehydration ED Provider: Keenan Churchill Discharge Problem: Intractable vomiting with nausea, Hypomagnesemia, Chronic pancreatitis, Lumbar spinal stenosis, Chronic back pain Patient Disposition: Admitted As Inpatient Condition: Fair Discharge Instructions Interventions: ED Discharge Assessment Last Done: 01/06/25 20:47 Discharge Problem: Chronic pancreatitis Qualifiers: Pancreatitis type: unspecified pancreatitis type Qualified Code(s): K86.1 - Other chronic pancreatitis Lumbar spinal stenosis Qualifiers: Neurogenic claudication status: unspecified Qualified Code(s): M48.061 - Spinal stenosis, lumbar region without neurogenic claudication Chronic back pain Qualifiers: Back pain location: low back pain Back pain laterality: unspecified Sciatica presence: unspecified whether sciatica present Qualified Code(s): M54.50 - Low back pain, unspecified; G89.29 - Other chronic pain
[2025-01-06 16:16] LABS: Alanine Aminotransferase 20 U/L (7-52); Albumin Globulin Ratio 1.6 (0.9-2); Albumin Level 5.1 gm/dl (3.4-5.0); Alkaline Phosphatase 58 U/L (34-104); Anion Gap 16 (3-11); Aspartate Aminotransferase 25 U/L (13-39); BUN Creatinine Ratio 5.9 (10-20); Bilirubin,Total 1.2 mg/dl (0.2-1.0); Blood Urea Nitrogen 5 mg/dl (6-23); Calcium 10.3 mg/dl (8.6-10.3); Carbon Dioxide 17 mmol/L (21-32); Chloride 103 mmol/L (98-107); Globulin 3.2 gm/dl (2.5-4.0); Glucose 89 mg/dl (70-99(Fasting)); Potassium 3.9 mmol/L (3.5-5.1); Sodium 136 mmol/L (136-145); Total Protein 8.3 gm/dl (6.0-8.3)
[2025-01-06 16:28] LABS: Bilirubin Direct 0.3 mg/dl (0-0.2); Lipase 44 U/L (11-82); Magnesium 1.6 mg/dl (1.7-2.4); Phosphorus 1.7 mg/dl (2.5-4.9)
[2025-01-06 17:25] LABS: INR 1.2 (0.9-1.1); Prothrombin Time 12.4 Seconds (9.0-12.0)
--- NOTE | 2025-01-06 17:55 | History & Physical Report ---
Date of Service January 06, 2025 Assessment & Plan (1) Severe lumbar pain: (2) Degenerative joint disease (DJD) of lumbar spine: (3) Spinal stenosis: (4) Abdominal pain: (5) Anorexia: (6) Chronic pancreatitis: (7) History of craniotomy: (8) Hypomagnesemia: (9) History of alcohol use disorder: (10) Elevated LFTs: (11) Polypharmacy: (12) Cognitive impairment: (13) Cirrhosis: (14) Pancytopenia: (15) Weight loss: Plan 64yo female with chronic lumbar back pain on narcotics, chronic pancreatitis, prior alcoholism, TBI / SDH requiring craniotomy in 2010, tiny lacunar stroke 04/2024, COPD, cognitive impairment, cirrhosis, HTN, pancytopenia (likely due to cirrhosis), polypharmacy, and recent hospitalization from 01/04 to 01/05 for nausea/emesis/abd pain. Symptoms were thought due to chronic pancreatitis and perhaps a gastroenteritis but her stool BioFire panel and respiratory BioFire panel were both fully negative. Return to [facility] with ongoing back pain, poor PO intake, and various GI symptoms. #severe lumbar back pain with known lumbar DJD & spinal stenosis - -this was actually the patient's main complaint today -she was distressed over her pain and it is interfering with day to day living at home -based on prior imaging her most severe disease is at L4-L5; prior MRI showed severe spinal stenosis at this level -she also has other levels of foraminal stenosis, DJD, etc. -per the PDMP has been on oxycodone prn pain, then was prescribed ER morphine 15mg BID in late November -pt's reports she used this 30-day supply of morphine in 2 weeks -the patient herself has no recollection of using morphine or oxycodone and in fact denied daily use of these medicines (she states she only takes tylenol on most days with oxycodone maybe 1-2x's/week) -pt's admits that she does not give oversight of Ms Rivas's medicines -in the short term will use oxycodone 5mg prn mild-moderate pain with low-dose IV dilaudid prn severe pain -the combination of chronic benzos, chronic narcotics, multiple muscle relaxers, etc - all in the setting of cirrhosis & chronic cognitive impairment - is leading to significant difficulties -given the escalating pain over the last few weeks will repeat a lumbar CT to ensure no new pathology - compression fracture, etc - contributing to her pain -will ask Dr Jj to see in consultation -although she is slated for back surgery in the future, I am concerned that she is very high risk for surgery given the cirrhosis; further, I am concerned her post-op course is going to be very challenging due to her cirrhosis, chronic pain issues, cognitive impairment, poor nutrition & anorexia, etc. #abdominal pain, anorexia, nausea, diarrhea, weight loss - -will ask Dr Garcia from [facility] to see in consult -differential - chronic pancreatitis vs PUD vs gastritis/esophagitis vs combo vs other factors -pepcid 20mg IV x 1 now -then increase PPI to bid dosing -recently started on creon 1 cap TID w/ meals -- continue such for chronic pancreatitis -need for EGD? does have h/o varices, gastritis, etc. -allow clear liquid diet and see how she does -weight loss due to chronic pancreatitis? other factors? #cognitive impairment - -alcoholic dementia, prior TBI with SDH requiring evacuation (2010), nutritional deficiencies, toxic effects from polypharmacy, etc likely all to blame for her memory/cognitive issues -check B12 level am -B1 level 2023 was wnl -TSH wnl #cirrhosis - -h/o treated HepC years ago -h/o heavy alcohol abuse up until a few years ago -thus, cirrhosis likely on the basis of etoh -no evidence of hepatic encephalopathy -appears compensated on exam and by way of recent abdominal imaging -GI consult for consideration of EGD - see above -cont coreg for presumed portal HTN given her h/o esophageal varices #chronic pancreatitis - -may be the cause or at least a contributor of her weight loss, abd symptoms, diarrhea, etc (although stool pancreatic elastase was normal in 2023) -[id number] will cont creon 1 capsule TID w/ meals #h/o TBI with SDH s/p craniotomy 2010 - -cognitive impairment since then -CT head 09/2024 without ICH/SDH, etc (atrophy only) #HTN - -cont coreg BID but hold losartan for now #pancytopenia - -presumed 2nd to cirrhosis -TSH wnl -check B12 am -folate level 08/2024 was wnl -trend the CBC for stability #polypharmacy - -narcotics + valium + muscle relaxers + SSRI + remeron (with dose increase 2 weeks ago from 15 to 30mg HS) -patient unable to provide accurate history of what she is taking and how often -patient has been managing her own meds at home - she cannot do such any longer; she took 60 tabs of morphine ER in 2 to 2.5 weeks over late November/early December per her spouse -I believe polypharmacy is playing a huge role in her day to day difficulties -would reduce valium from 5mg BID to 2mg BID and plan to wean off over the next few weeks; high risk of morbidity with narcotics + benzos + cirrhosis + cognitive impairment -reduce remeron to 7.5mg HS -no morphine ER by mouth -oxy prn mild-mod pain; dilaudid IV low-dose prn severe pain -hold baclofen -hold flexeril -reduce buspar from 30mg BID to 15mg BID #hypomagnesemia - -replace IV -repeat mag level am -2nd to diarrhea and very poor po intake #hypophosphatemia - -replace with PO phos -repeat level 2 days #malnutrition - -at risk of refeeding syndrome -taking minimal PO for weeks or longer -place on thiamine BID -careful surveillance of electrolytes -GI consult -nutrition consult pt's updated extensively by phone this evening History of Present Illness Chief Complaint: back pain Primary Care Provider: Swetha Prakash DO 64yo female with chronic lumbar back pain on narcotics, chronic pancreatitis, prior alcoholism, TBI / SDH requiring craniotomy in 2010, tiny lacunar stroke 04/2024, COPD, cognitive impairment, cirrhosis, HTN, pancytopenia (likely due to cirrhosis), and recent hospitalization from 01/04 to 01/05 for nausea/emesis/abd pain. Symptoms were thought due to chronic pancreatitis and perhaps a gastroenteritis but her stool BioFire panel and respiratory BioFire panel were both fully negative. Patient reports she tolerated a small amount of oatmeal yesterday prior to discharge home. The patient is a very poor historian. She tells me she has not been taking any morphine or oxycodone at home. However, she does think that she took a dose of morphine this morning before going to her PCP's office. While at her PCP's today she vomited and "they sent me over" [to the ER at [facility]]. During the encounter her main complaint is her low back pain. She actually denied any nausea, vomiting or abdominal pain to me. With respect to the back she is to have surgery by Dr Jj in the near-future. The surgery has been rescheduled multiple times. She states she only takes tylenol as needed for the pain. The pain is in the lumbar spine, mainly midline - with radiation to both lateral hips. Denies pain in either leg/denies radicular pain. Denies any recent falls. Throughout the visit she was tearful and breathing rapidly as if in pain. With respect to her appetite she states it has only been poor for several days. She stated "I only can eat oatmeal and I eat it 3 times a day." When asked about the +THC on drug screen patient stated she does NOT have a medical THC card. She did admit to using her spouse's medical THC about 1x/week. After the visit I contacted her spouse, Mamta Barboza, by phone to gather more information. I told her that Nury was confused and could not provide an accurate history. I mentioned to Mamta that Nury had her morphine ER 15mg BID filled on 12/08/24 per pharmacy records. Mamta stated that Nury stopped taking it about 1.5-2 weeks ago because she "ran out." Mamta admitted that she does not supervise Nury's medications and thinks Nury got confused about dosing, etc. Based on that information we discussed that she was probably taking the ER morphine 3-4 times/day for about 2 weeks. In addition to the morphine ER she has had prescriptions for valium, oxycodone, baclofen, flexeril, high-dose buspar, and remeron that have all been filled in the last 1-2 months. In fact the remeron was recently increased from 15mg to 30mg on 12/23/24 per pharmacy records. I expressed my concerns to Mamta that given the polypharmacy in the setting of cirrhosis and underlying cognitive impairment that this is going to lead to increased confusion, increased fall risk, increased side effects, etc. Mamta stated that Nury's abdominal pain has actually been present "for months." Her appetite has been very poor chronically - not just in the last few days/weeks (patient stated the appetite was poor for 4-5 days only). Allergies Allergy/AdvReac Type Severity Reaction Status Date / Time brexpiprazole [From [facility]] Allergy Severe "Makes me Verified 01/02/25 11:47 very lofty" aripiprazole AdvReac Severe Seizure Verified 01/02/25 11:47 activity per [facility] EMR gabapentin AdvReac Severe Confusion Verified 01/02/25 11:47 ibuprofen AdvReac Severe Per [facility] Verified 01/02/25 11:47 EMR to be avoided given cirrhosis Home Medications Medication Instructions Recorded Confirmed Type rizatriptan 10 mg disintegrating 10 mg PO UD PRN Migraine Headache 11/21/21 01/06/25 History tablet ([employer]) calcium 600 mg (as 2 cap PO QAM 08/02/22 01/06/25 History carbonate)-vitamin D3 12.5 mcg (500 unit) capsule (Calcium with Vit D3) alendronate 35 mg tablet 35 mg PO Q7D 04/20/23 01/06/25 History buspirone 30 mg tablet 30 mg PO BID 04/20/23 01/06/25 History omeprazole 40 mg capsule,delayed 40 mg PO QAM gerd 04/20/23 01/06/25 History release losartan 25 mg tablet 25 mg PO QAM 07/31/23 01/06/25 History carvedilol 3.125 mg tablet 3.125 mg PO BID 04/26/24 01/06/25 History fluoxetine 40 mg capsule (Prozac) 40 mg PO QAM 04/26/24 01/06/25 History atorvastatin 40 mg tablet 40 mg PO QAM #30 tabs 04/30/24 01/06/25 Rx acetaminophen 500 mg tablet 500 mg PO QID 06/18/24 01/06/25 History aspirin 81 mg tablet,delayed 81 mg PO QAM 06/18/24 01/06/25 History release multivitamin 1 tab PO QAM 06/18/24 01/06/25 History potassium 99 mg tablet 99 mg PO QAM 06/18/24 01/06/25 History mirtazapine 15 mg tablet (Remeron) 15 mg PO HS 06/23/24 01/06/25 History cyclobenzaprine 5 mg tablet 5 mg PO HS PRN Muscle Spasm 09/22/24 01/06/25 History diazepam 5 mg tablet 5 mg PO BID PRN Anxiety 09/22/24 01/06/25 History ferrous sulfate 325 mg (65 mg 325 mg PO QAM 09/22/24 01/06/25 History iron) tablet (iron) oxycodone 5 mg tablet 7.5 mg PO Q6H PRN Pain 09/22/24 01/06/25 History baclofen 10 mg tablet 10 mg PO TID #90 tabs 11/01/24 01/06/25 Rx magnesium 250 mg tablet 250 mg PO QAM 11/01/24 01/06/25 History nystatin 100,000 unit/gram topical 1 applic topical BID 11/29/24 01/06/25 History powder nystatin 100,000 unit/gram topical 1 applic topical TID 11/29/24 01/06/25 His tory powder sodium chloride 1,000 mg soluble 1,000 mg PO BID #60 tabs 12/02/24 01/06/25 Rx tablet tyaeas-szdotfcy-heutaxt 1 cap PO AC #30 caps 01/05/25 01/06/25 Rx 36,000-114,000-180,000 unit capsule,delay rel (Creon) ondansetron 4 mg disintegrating 4 mg PO DAILY PRN nausea and 01/05/25 01/06/25 Rx tablet vomiting 4 days #14 tabs Past Med/Surg History Problem List (Updated 01/07/25 @ 07:09 by Jose Sam MD) Weight loss Chronic back pain (Acute) Lumbar spinal stenosis (Acute) Hypomagnesemia (Acute) Cognitive impairment Polypharmacy History of alcohol use disorder Anorexia Degenerative joint disease (DJD) of lumbar spine Severe lumbar pain Intractable abdominal pain (Acute) Hypokalemia due to excessive gastrointestinal loss of potassium (Acute) Intractable vomiting with nausea (Acute) Abdominal pain (Acute) Vomiting (Acute) Positive ROSANGELA (antinuclear antibody) Mitral regurgitation Tricuspid regurgitation Recurrent falls (Acute) Vitamin D deficiency Diarrhea Neutropenia Hyponatremia with decreased serum osmolality Encounter for pre-operative examination Lumbar spondylosis Thrombocytopenia (Acute) Spinal stenosis Elevated LFTs Ambulatory dysfunction (Acute) Hypocalcemia Anemia Leukopenia Metabolic acidosis (Acute) COPD (chronic obstructive pulmonary disease) pt denies Alcoholism (Acute) Chronic pancreatitis (Acute) Nonischemic cardiomyopathy Uterine leiomyoma (Chronic 07/18/11) 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/11) Hypomagnesemia Medical History Cirrhosis History of CVA (cerebrovascular accident) 04/28/24, "mild"/slight confusion residual per COPD (chronic obstructive pulmonary disease) Per records denies, "never diagnosed with this" Non-ischemic cardiomyopathy Chronic hyponatremia Per Nephro note 04/21/24: "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 These have been stopped... 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 These have been stopped" Spinal stenosis GERD (gastroesophageal reflux disease) Lumbar facet joint syndrome Lumbar spondylosis Hx of gastritis No recent/current issues Hx of tinnitus Hx of migraines Pulmonary hypertension Noted per remote records Most recent Echo 03/25/2024 with normal estimated RVSP at 31mmhg Seasonal allergies Hx of chronic pancreatitis Per records History of anemia Chronic pain disorder Back Positive ROSANGELA (antinuclear antibody) Stress incontinence Chronic cough Follows with [facility] pulm "Due to pollen" Usually during spring/summer HTN (hypertension) Osteoarthritis History of seizure (2010) Following subdural hematoma 2010 from fall Most recent seizure 2022 Pt follows with [facility]; per 01/01/24 Neuro note, pt had "episode of speech and movement arrest in the context of a history of posttraumatic seizures" 04/2023. Had normal EEG. Pt advised by neuro to start keppra but pt refused. Surgical History History of bone marrow biopsy (06/2024) [facility] [place] History of craniotomy (2010) R/t subdural hematoma from fall Hx of hysterectomy Hx of cholecystectomy History of carpal tunnel release R/L Hx of arthroscopy of shoulder Right Hx of arthroscopy of left knee S/P cervical spinal fusion C4-C7 per imaging review, ~2007 History of onel hole surgery (2010) > craniotomy History of esophagogastroduodenoscopy (EGD) History of colonoscopy Family History (Updated 01/06/25 @ 22:19 by Jose Sam MD) Mother , age 82 - uncertain cause Hypertension Other No family history of adverse response to anesthesia Social History (Updated 01/06/25 @ 22:21 by Jose Sam MD) Smoking Status: Former smoker Tobacco Type: Cigarettes Age Started Using Tobacco: 18; Age Quit Using Tobacco: 30; packs per day: 1; Second Hand Exposure: No; Do You Dip or Chew Tobacco: No; Hx Alcohol Use: No Hx Substance Use: Yes Substance Use Type Other:: does not have her own medical THC card; uses spouse's medical THC 1x/week Preferred Language: [place] Communication Ability: Effective Cement Mason Required: No Beliefs That Will Affect Care: None marital status: Current Living Situation: Spouse Current Living Situation Comment: Lives at home with . 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 Feels Safe at Home: Yes Assistive Devices: None Review of Systems Review of Systems: gen - no fevers; fatigue, weakness, and uncertain amount of weight loss; no fevers eyes - no change in vision HENT - denies URI symptoms CV - denies chest pain, denies orthopnea, denies LE edema pulm - denies dyspnea at rest, denies cough GI - vague abdominal pain/discomfort; some nausea; some vomiting; diarrhea off/on - no dysuria musculo - severe low back pain with radiation to both lateral hip regions neuro - numbness in both feet today; no headache; no focal motor weakness of legs but does state her legs feel heavy at times endo - no diabetes skin - no rash psych - admits to memory problems Physical Exam Physical Exam: gen - very poor historian, tearful at times, other times is sighing/panting - due to back pain?? eyes - PERRL HENT - MM dry, lips dry, no lesions of oral cavity neck - no JVD, no goiter, no lymph nodes heart - RRR, s1 s2, no murmur lungs - CTA b/l abd - soft, NT, ND, BS+, no HSM, no peritoneal signs ext - no edema, pulses 2+ b/l feet neuro - no asterixis; speech clear; no facial droop; strength 5/5 b/l arms; strength b/l hip flexion near 5/5; distal strength of b/l ankles 5/5; sensation intact to light touch on legs/arms; gait not tested skin - no rash psych - very poor historian, confused for historical details, oriented to person/place musculo - tender to palpation over lower lumbar segments as well as the paraspinal regions b/l; no tenderness over the t-spine to palpation Results & Data Results & Data Vital Signs (Past 12 Hours) Vital Signs Temp Pulse Pulse Resp BP BP Pulse Ox 01/06/25 17:31 76 20 123/78 100 01/06/25 16:11 72 20 146/109 H 100 01/06/25 16:10 77 01/06/25 14:46 36.4 C L 82 22 153/93 H 98 O2 Del Method 01/06/25 17:31 Room Air 01/06/25 16:11 Room Air 01/06/25 16:10 01/06/25 14:46 Room Air Laboratory Results Laboratory Results - last 24 hr 01/06/25 01/06/25 01/06/25 14:27 16:20 17:08 WBC 7.42 RBC 4.81 Hgb 16.3 H Hct 44.7 MCV 92.9 MCH 33.9 MCHC 36.5 H RDW Std Deviation 44.2 RDW Coeff of [place] 13.1 Plt Count 145 D MPV 8.5 L Immature Gran % (Auto) 0.3 Neut % (Auto) 76.8 Lymph % (Auto) 15.2 [place] % (Auto) 6.6 Eos % (Auto) 0.8 Baso % (Auto) 0.3 Neut # (Auto) 5.70 Lymph # (Auto) 1.13 L [place] # (Auto) 0.49 Eos # (Auto) 0.06 Baso # (Auto) 0.02 Immature Gran # (Auto) 0.02 PT 12.4 H INR 1.2 H Sodium 136 Potassium 3.9 Chloride 103 Carbon Dioxide 17 L Anion Gap 16 H BUN 5 L Creatinine 0.85 Est Cr Clr Drug Dosing Not Reportable eGFR 75.98 BUN/Creatinine Ratio 5.9 L Glucose 89 Lactate 1.1 Calcium 10.3 Phosphorus 1.7 L Magnesium 1.6 L Total Bilirubin 1.2 H D Direct Bilirubin 0.3 H AST 25 ALT 20 Alkaline Phosphatase 58 Total Protein 8.3 D Albumin 5.1 H Globulin 3.2 Albumin/Globulin Ratio 1.6 Lipase 44 Procalcitonin < 0.02 Urine Color Urine Appearance Urine pH Ur Specific [place] Urine Protein Urine Glucose (UA) Urine Ketones Urine Blood Urine Nitrite Urine Bilirubin Urine Urobilinogen Ur Leukocyte Esterase Urine WBC (Auto) Urine RBC (Auto) U Hyaline Cast (Auto) U Epithel Cells (Auto) Urine Bacteria (Auto) Urine Mucus Urine Comment Urine Opiates Screen U Codeine Confrm GC/MS Ur Morphine (GC/MS) Ur Hydrocodone (GC/MS) Ur Norhydrocodone Ur Noroxycodone Urine Oxycodone (GC/MS) U Oxymorphone GC/MS Ur Methadone, Qual Ur Hydromorphone (GC/MS) Urine Fentanyl Screen Urine Barbiturates Ur Phencyclidine (PCP) U Amphetamin/Meth Scrn MDMA (Ecstasy) Screen U OH-Alprazolam Confrm U Benzodiazepines Scrn 7-Amino Clonazepam Ur Nordiazepam Confirm U OH-ethylflurazepam U Lorazepam Cnf GC/MS U Oxazepam Confm GC/MS Ur Temazepam Confirm U OH-Triazolam Confirm U OH-Midazolam Confirm Ur Cocaine Metabolite U Marijuana (THC) Screen U Marijuana THC Carboxy Drug Screen Comment Ethyl Alcohol mg/dL < 10.0 01/06/25 18:33 WBC RBC Hgb Hct MCV MCH MCHC RDW Std Deviation RDW Coeff of [place] Plt Count MPV Immature Gran % (Auto) Neut % (Auto) Lymph % (Auto) [place] % (Auto) Eos % (Auto) Baso % (Auto) Neut # (Auto) Lymph # (Auto) [place] # (Auto) Eos # (Auto) Baso # (Auto) Immature Gran # (Auto) PT INR Sodium Potassium Chloride Carbon Dioxide Anion Gap BUN Creatinine Est Cr Clr Drug Dosing eGFR BUN/Creatinine Ratio Glucose Lactate Calcium Phosphorus Magnesium Total Bilirubin Direct Bilirubin AST ALT Alkaline Phosphatase Total Protein Albumin Globulin Albumin/Globulin Ratio Lipase Procalcitonin Urine Color Yellow Urine Appearance Clear Urine pH 6.5 Ur Specific [place] 1.013 Urine Protein Negative Urine Glucose (UA) Negative Urine Ketones 3+ H Urine Blood Negative Urine Nitrite Negative Urine Bilirubin Negative Urine Urobilinogen Negative Ur Leukocyte Esterase 1+ H Urine WBC (Auto) 6-10 H Urine RBC (Auto) >20 H U Hyaline Cast (Auto) 0-2 U Epithel Cells (Auto) 0-2 Urine Bacteria (Auto) None Seen Urine Mucus Present A Urine Comment Urine Opiates Screen Pos H U Codeine Confrm GC/MS Pending Ur Morphine (GC/MS) Pending Ur Hydrocodone (GC/MS) Pending Ur Norhydrocodone Pending Ur Noroxycodone Pending Urine Oxycodone (GC/MS) Pending U Oxymorphone GC/MS Pending Ur Methadone, Qual Neg Ur Hydromorphone (GC/MS) Pending Urine Fentanyl Screen Neg Urine Barbiturates Neg Ur Phencyclidine (PCP) Neg U Amphetamin/Meth Scrn Neg MDMA (Ecstasy) Screen Neg U OH-Alprazolam Confrm Pending U Benzodiazepines Scrn Pos H 7-Amino Clonazepam Pending Ur Nordiazepam Confirm Pending U OH-ethylflurazepam Pending U Lorazepam Cnf GC/MS Pending U Oxazepam Confm GC/MS Pending Ur Temazepam Confirm Pending U OH-Triazolam Confirm Pending U OH-Midazolam Confirm Pending Ur Cocaine Metabolite Neg U Marijuana (THC) Screen Pos H U Marijuana THC Carboxy Pending Drug Screen Comment Pending Ethyl Alcohol mg/dL Diagnostic Findings Chest X-Ray 01/06/25 16:55 Clinical History: Chills and nausea Technique: A frontal view of the chest was obtained Comparison is made to the prior examination dated 12/13/2024 Findings: There are no confluent pulmonary infiltrates. The heart size is within normal limits. No pleural effusion or pneumothorax is seen. There is no definite pulmonary nodule. No fracture is noted. There is thoracic scoliosis and degenerative disc disease. There is a cervical fusion Impression: No active disease Electronically signed by Khang Leal 01-06-2025 5:54 PM KUB X-Ray 01/06/25 16:55 Clinical history: Pain One view of the abdomen was obtained Findings: There are mildly prominent air-filled loops of small and large bowel, which may be due to ileus. Obstruction is less likely. No renal or ureteral calculi are seen. No foreign body is evident. There is lumbar scoliosis and degenerative disc disease. Surgical clips are seen consistent with prior cholecystectomy Impression: Possible mild ileus Electronically signed by Khang Leal 01-06-2025 5:56 PM Code Status & VTE Plan Code Status full code PG Care Time/CCT Total # of Minutes Spent Total Time Spent with Patient: Total time spent is greater than 50% in coordination of care (as documented) at patient's floor/unit and/or counseling patient: Coding Level of Care Code 23504 INT INP/OBS CARE 3/75MIN Diagnoses Severe lumbar pain M54.50 Degenerative joint disease (DJD) of lumbar spine M47.816 Spinal stenosis M48.00 Abdominal pain R10.84 Abdominal location: generalized Anorexia R63.0 Chronic pancreatitis K86.1 History of craniotomy Z98.890 Hypomagnesemia E83.42 History of alcohol use disorder Z87.898 Elevated LFTs R79.89 Polypharmacy Z79.899 Cognitive impairment R41.89 Cirrhosis K74.60 Pancytopenia D61.818 Weight loss R63.4 (4) Abdominal pain Abdominal location: generalized Qualified Code(s): R10.84 - Generalized abdominal pain
[2025-01-06 19:18] LABS: Appearance Urine Clear (Clear); Bacteria Urine Automated None Seen (None Seen); Bilirubin Urine Negative (Negative); Blood Urine Negative (Negative); Cast Urine Automated 0-2 /lpf (0-2); Color Urine Yellow; Epithelial Cell Urine Auto 0-2 /hpf (0-2); Glucose Urine UA Negative (Negative); Ketones Urine 3+ (Negative); Leukocyte Esterase Urine 1+ (Negative); Mucus Urine Present (None Prsent); Nitrite Urine Negative (Negative); Protein Urine Negative (Negative); RBC Urine Automated >20 /hpf (0-2); Specific Gravity Urine 1.013 (1.000-1.030); Urobilinogen Urine Negative (Negative); pH Urine 6.5 (4.5-7.5)
[2025-01-06 19:49] LABS: Amphetamines+Metham, Urine Neg (Neg); Barbiturates, Urine Neg (Neg); Benzodiazepine, Urine Pos (Neg); Cocaine, Urine Neg (Neg); Fentanyl, Urine Neg (Neg); MDMA (Ecstacy), Urine Neg (Neg); Marijuana, Urine Pos (Neg); Methadone, Urine Neg (Neg); Opiate, Urine Pos (Neg); Phencyclidine, Urine Neg (Neg)
--- NOTE | 2025-01-06 23:08 | CT Scan Report ---
Exam(s): CT L SPINE EXAM: CT Lumbar Spine Without Intravenous Contrast CLINICAL HISTORY: Reason for exam: severe l-spine pain; compression fx?. TECHNIQUE: Axial computed tomography images of the lumbar spine without intravenous contrast. CTDI is 36.77 mGy and DLP is 971.01 mGy-cm. Automated exposure control was utilized for the study. A dose lowering technique was utilized adhering to the principles of ALARA. COMPARISON: No relevant prior studies available. FINDINGS: Vertebrae: No acute fracture. No significant misalignment. Discs/spinal canal/neural foramina: Advanced disc degeneration L3/L4 and L4/L5.There is spinal stenosis at L3/L4 and L4/L5, though the exact degree is difficult to assess by CT without myelographic contrast. Soft tissues: Unremarkable. IMPRESSION: No acute findings in the lumbar spine. Spinal stenosis at L3/L4 and L4/L5 difficult to fully assess by CT without myographic contrast. If there are neurologic symptoms, consider further evaluation with MRI. Electronically signed by: Oseas Vieira MD 01/06/25 23:07 PM
--- NOTE | 2025-01-07 06:47 | Hospitalist Progress Note ---
Date of Service January 07, 2025 Assessment & Plan (1) Chronic back pain: Plan: Pt is a 64 yo female with PMH of chronic back pain, chronic pancreatitis, CVA, COPD, cirrhosis, HTN, and pancytopenia admitted for intractable N/V and intractable back pain. Severe lumbar back pain with known lumbar DJD & spinal stenosis - lumbar spine CT showing disc degeneration and spinal stenosis at L3/L4 and L4/L5 - prior MRI showing multilevel disc bulging and foraminal/central canal narrowing - per the PDMP has been on oxycodone prn pain, then was prescribed ER morphine 15mg BID in late November - there is concern with pt's opioid use as on admission pt's reports that she used a 30 day supply of morphine in 2 weeks - in the short term will use oxycodone 5mg prn mild-moderate pain with low-dose IV dilaudid prn severe pain - consulted ortho spine but Dr. Jj out of town; discussed with pt about pain management eval which she would like to pursue Abdominal pain/anorexia/nausea/diarrhea/weight loss - unclear etiology; chronic pancreatitis vs PUD vs gastritis/esophagitis vs combo vs other factors - recently started on creon 1 cap TID w/ meals; continue such for chronic pancreatitis - continue PPI BID - GI consulted Cognitive impairment - alcoholic dementia, prior TBI with SDH requiring evacuation (2010), nutritional deficiencies, toxic effects from polypharmacy, etc likely all to blame for her memory/cognitive issues - B1 level 2023 was WNL; B12 WNL - TSH wnl Cirrhosis - h/o treated HepC years ago, heavy alcohol use until a few years ago - GI consult for consideration of ?EGD - see above - cont coreg for presumed portal HTN given her h/o esophageal varices Polypharmacy - pt on multiple medications that can be affecting her cognitions: narcotics + valium + muscle relaxers + SSRI + remeron (with dose increase 2 weeks ago from 15 to 30mg HS) - patient has been managing her own meds at home prior to this admission; she cannot do such any longer; as above, per pt's spouse- she took 60 tabs of morphine ER in 2 to 2.5 weeks - continue reduced valium 2mg BID and plan to wean off over the next few weeks; high risk of morbidity with narcotics, benzos, cirrhosis, and cognitive impairment - continue reduced remeron 7.5mg HS, reduce buspirone 15mg BID - continue pain control with oxy 5mg prn mild-mod pain; dilaudid IV low-dose prn severe pain - hold baclofen, flexeril Chronic pancreatitis - plan as above HTN - continue coreg BID; hold losartan Pancytopenia -presumed 2nd to cirrhosis - trend CBC Hypophosphatemia - replaced with PO phos - repeat level tomorrow Malnutrition - at risk of refeeding syndrome - continue thiamine BID - GI and nutrition consulted Diet: clear liquid Code: full VTE ppx: lovenox Dispo: med/surg with tele (2) Degenerative joint disease (DJD) of lumbar spine: (3) Intractable vomiting with nausea: Admission and Anticipated Discharge Date Admission Date: January 06, 2025 Supervising Physician Co-Signing Physician Notes I personally examined the patient and verified all rachel points of history and exam, discussed case, and agree with decision making with Dr Arredondo Feeling better from a nausea standpoint, but also has not eaten much. Back pain bad but mostly in her low back to hips. Discussed with pain management. Input appreciated. Vitals noted, in general she is awake and alert pleasant no distress. HEENT normocephalic atraumatic mucous membranes moist. Breathing unlabored no accessory muscle use good effort. Skin shows no rashes no pallor or icterus. Musculoskeletal exam shows left greater than right bilateral piriformis muscle region musculature high tone tender decreased range of motionLASimproved, patient tolerated well and noted some improvement in her pain. Intractable nausea and vomitingnow that there is more back story on what she has been doing with pain medications, I worry that some of the nausea and vomiting may have been narcotics and potentially narcotics withdrawal mediatedshe seems to be doing better but still has not eaten much. Will do twice daily Protonix, twice daily Pepcid, advance diet to regular and follow. Intractable back pain/pelvic somatic dysfunctionwhile she does seem to have spinal disease, her current presentation seems mostly consistent with lumbosacral strain/tight piriformis mechanism of the biomechanical back pain precipitating secondary SI joint painOMT as above, mag 4 g IV, diclofenac gel. DVT proph - lovenox otherwise as above Subjective Pt is a 64 yo female with PMH of chronic back pain, chronic pancreatitis, CVA, COPD, cirrhosis, HTN, and pancytopenia admitted for intractable N/V and intractable back pain. Pt was recently admitted for similar concerns and was discharged. She had PCP f/u at which appt it was thought she was acutely dehydrated and unable to take PO so she was referred back to the hospital. On admission, her acute concern is not her lack of PO intake/dehydration but her acute on chronic back pain. This morning she relays that her back pain has become worse. She is scheduled for surgery in January (this has been rescheduled multiple times). She notes her poor appetite is chronic and this is not new for her. She denies abdominal pain but does endorse feeling nauseous. Review of Systems Review of Systems: As per HPI Physical Exam Physical Exam: Constitutional: well appearing, no acute distress HEENT: normocephalic, no conjunctival injection CV: RRR, no murmur, no LE edema Respiratory: CTA bilaterally. No rhonchi, wheezes, or crackles. No increased work of breathing GI: soft, nondistended, nontender, + bowel sounds MSK: no gross deformities noted Skin: warm, dry, no rashes Neuro: alert, oriented, no FND noted Psych: mood and affect congruent Results & Data Results & Data Vital Signs (Past 12 Hours) Vital Signs Temp Pulse Pulse Pulse Resp BP Pulse Ox 01/07/25 03:57 36.8 C 79 18 121/82 93 01/07/25 00:00 36.8 C 72 18 119/77 97 01/06/25 21:51 72 01/06/25 21:10 81 01/06/25 20:57 01/06/25 20:57 36.6 C 79 12 143/79 H 98 01/06/25 20:30 79 20 132/84 97 01/06/25 19:38 87 O2 Del Method 01/07/25 03:57 Room Air 01/07/25 00:00 Room Air 01/06/25 21:51 01/06/25 21:10 01/06/25 20:57 Room Air 01/06/25 20:57 Room Air 01/06/25 20:30 Room Air 01/06/25 19:38 Resident Activity Tracking Resident Involvement: Resident Care Provided Care Provided: Adult Hospital Medicine (1) Chronic back pain Back pain laterality: unspecified Back pain location: low back pain Sciatica presence: unspecified whether sciatica present Qualified Code(s): M54.50 - Low back pain, unspecified; G89.29 - Other chronic pain
[2025-01-07 07:06] LABS: Hematocrit (blood only) 36.7 % (37.0-47.0); Hemoglobin 12.7 g/dl (12.0-16.0); Mean Corpuscular Hemoglobin 33.3 pg (25.0-34.0); Mean Corpuscular Hgb Conc 34.6 g/dL (32.0-36.0); Mean Corpuscular Volume 96.3 fL (80.0-100.0); Mean Platelet Volume 8.5 fL (9.4-12.4); Platelet Count 92 K/uL (130-400); RDW Standard Deviation 49.2 fL (36.4-46.3); Red Blood Count 3.81 M/uL (4.20-5.40); White Blood Count 2.88 K/ul (4.8-10.8)
[2025-01-07 07:31] LABS: Albumin Level 3.7 gm/dl (3.4-5.0); Bilirubin,Total 0.9 mg/dl (0.2-1.0); Calcium 8.5 mg/dl (8.6-10.3); Magnesium 1.9 mg/dl (1.7-2.4); Potassium 4.6 mmol/L (3.5-5.1)
[2025-01-07 07:39] LABS: Albumin Globulin Ratio 1.6 (0.9-2); BUN Creatinine Ratio 5.6 (10-20); Creatinine Clr Calc Pharmacy 80.3 ml/min; Globulin 2.3 gm/dl (2.5-4.0)
--- NOTE | 2025-01-07 13:03 | Gastrointestinal Consultation ---
Date of Consultation January 07, 2025 Assessment & Plan (1) Intractable abdominal pain: Patient gives me a different history than she has given other providers. She tells me she has abdominal pain and that is her main complaint. She says she doesn't eat with the pain but isn't certain if eating worsens it. She says she mainly drinks a lot of water. She says she has had EGD done in the past year as well as colonoscopy--I will check the [facility] records on that. I also would like to check the clinic records to see if I can get a clearer history on what has been going on with her. She has changes of chronic pancreatitis on CT and that can explain her pain. If so, chronic pancreatitis is a pain management issue. There is nothing from a GI standpoint that can be done therapeutically that will predictively work. pancreatic enzymes can be given and may control any diarrhea she has but are not great at managing pain. After I get a chance to review her records I will decide if EGD is warranted or necessary. Of note she tells me she isn't vomiting and her nausea is chronic. History of Present Illness Reason for Consultation: abdominal pain Attending Physician: Samson Gonzalez DO History of Present Illness 64 year old female, somewhat scattered historian, who tells me she has trouble with abdominal pain. It has been going on for about three to four months. She was in the hospital recently with vomiting and diarrhea that resolved and were felt to be an acute self limited enteritis. She saw her PCP after the hosp italization and they felt she looked dehydrated so she was referred back to the ED. She tells me it has been more than a day since she has vomited and she thinks that was just reflux of stomach acid. She has chronic nausea so her nausea is not new to her. She tells me she has not had a bowel movement in five days because she hasn't eaten in five days. She admits to "scarred liver" but no liver disease. She thinks it was either Hep C or alcohol that caused it. She says on her last admit she was told she had chronic pancreatitis. She was seeing Dr. Lee in the [facility] but is now seeing a PA. She saw them 8 weeks ago and told them about her pain but she doesn't think anything was done about it. She has chronic back pain and has been scheduled for surgery but it has been rescheduled several times. She takes narcotics but "not much". Allergies Allergy/AdvReac Type Severity Reaction Status Date / Time brexpiprazole [From Rex[facility]] Allergy Severe "Makes me Verified 01/02/25 11:47 very lofty" aripiprazole AdvReac Severe Seizure Verified 01/02/25 11:47 activity per [facility] EMR gabapentin AdvReac Severe Confusion Verified 01/02/25 11:47 ibuprofen AdvReac Severe Per [facility] Verified 01/02/25 11:47 EMR to be avoided given cirrhosis Home Medications Medication Instructions Recorded Confirmed Type rizatriptan 10 mg disintegrating 10 mg PO UD PRN Migraine Headache 11/21/21 01/06/25 History tablet (Maxalt-COAL SHOVELER) calcium 600 mg (as 2 cap PO QAM 08/02/22 01/06/25 History carbonate)-vitamin D3 12.5 mcg (500 unit) capsule (Calcium with Vit D3) alendronate 35 mg tablet 35 mg PO Q7D 04/20/23 01/06/25 History buspirone 30 mg tablet 30 mg PO BID 04/20/23 01/06/25 History omeprazole 40 mg capsule,delayed 40 mg PO QAM gerd 04/20/23 01/06/25 History release losartan 25 mg tablet 25 mg PO QAM 07/31/23 01/06/25 History carvedilol 3.125 mg tablet 3.125 mg PO BID 04/26/24 01/06/25 History fluoxetine 40 mg capsule (Prozac) 40 mg PO QAM 04/26/24 01/06/25 History atorvastatin 40 mg tablet 40 mg PO QAM #30 tabs 04/30/24 01/06/25 Rx acetaminophen 500 mg tablet 500 mg PO QID 06/18/24 01/06/25 History aspirin 81 mg tablet,delayed 81 mg PO QAM 06/18/24 01/06/25 History release multivitamin 1 tab PO QAM 06/18/24 01/06/25 History potassium 99 mg tablet 99 mg PO QAM 06/18/24 01/06/25 History mirtazapine 15 mg tablet (Remeron) 15 mg PO HS 06/23/24 01/06/25 History cyclobenzaprine 5 mg tablet 5 mg PO HS PRN Muscle Spasm 09/22/24 01/06/25 History diazepam 5 mg tablet 5 mg PO BID PRN Anxiety 09/22/24 01/06/25 History ferrous sulfate 325 mg (65 mg 325 mg PO QAM 09/22/24 01/06/25 History iron) tablet (iron) oxycodone 5 mg tablet 7.5 mg PO Q6H PRN Pain 09/22/24 01/06/25 History baclofen 10 mg tablet 10 mg PO TID #90 tabs 11/01/24 01/06/25 Rx magnesium 250 mg tablet 250 mg PO QAM 11/01/24 01/06/25 History nystatin 100,000 unit/gram topical 1 applic topical BID 11/29/24 01/06/25 History powder nystatin 100,000 unit/gram topical 1 applic topical TID 11/29/24 01/06/25 History powder sodium chloride 1,000 mg soluble 1,000 mg PO BID #60 tabs 12/02/24 01/06/25 Rx tablet mewuoq-[id number] 1 cap PO AC #30 caps 01/05/25 01/06/25 Rx 36,000-114,000-180,000 unit capsule,delay rel (Creon) ondansetron 4 mg disintegrating 4 mg PO DAILY PRN nausea and 01/05/25 01/06/25 Rx tablet vomiting 4 days #14 tabs Patient History Medical History Cirrhosis History of CVA (cerebrovascular accident) 04/28/24, "mild"/slight confusion residual per COPD (chronic obstructive pulmonary disease) Per records denies, "never diagnosed with this" Non-ischemic cardiomyopathy Chronic hyponatremia Per Nephro note 04/21/24: "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 These have been stopped... 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 These have been stopped" Spinal stenosis GERD (gastroesophageal reflux disease) Lumbar facet joint syndrome Lumbar spondylosis Hx of gastritis No recent/current issues Hx of tinnitus Hx of migraines Pulmonary hypertension Noted per remote records Most recent Echo 03/25/2024 with normal estimated RVSP at 31mmhg Seasonal allergies Hx of chronic pancreatitis Per records History of anemia Chronic pain disorder Back Positive ROSANGELA (antinuclear antibody) Stress incontinence Chronic cough Follows with [facility] pulm "Due to pollen" Usually during spring/summer HTN (hypertension) Osteoarthritis History of seizure (2010) Following subdural hematoma 2010 from fall Most recent seizure 2022 Pt follows with [facility] Neuro; per 01/01/24 Neuro note, pt had "episode of speech and movement arrest in the context of a history of posttraumatic seizures" 04/2023. Had normal EEG. Pt advised by neuro to start keppra but pt refused. Surgical History History of bone marrow biopsy (06/2024) [facility] History of craniotomy (2010) R/t subdural hematoma from fall Hx of hysterectomy Hx of cholecystectomy History of carpal tunnel release R/L Hx of arthroscopy of shoulder Right Hx of arthroscopy of left knee S/P cervical spinal fusion C4-C7 per imaging review, ~2007 History of onel hole surgery (2010) > craniotomy History of esophagogastroduodenoscopy (EGD) History of colonoscopy Family History Mother , age 82 - uncertain cause Hypertension Other No family history of adverse response to anesthesia Social History Smoking Status: Former smoker Tobacco Type: Cigarettes Age Started Using Tobacco: 18; Age Quit Using Tobacco: 30; packs per day: 1; Second Hand Exposure: No; Do You Dip or Chew Tobacco: No; Hx Alcohol Use: No Hx Substance Use: Yes Substance Use Type Other:: does not have her own medical THC card; uses spouse's medical THC 1x/week Preferred Language: Yoruba Communication Ability: Effective Fire Adjuster Required: No Beliefs That Will Affect Care: None marital status: Current Living Situation: Spouse Current Living Situation Comment: Lives at home with . current occupational status: retired How many Children do You have: 0 other: worked as [employer] then [employer] Feels Safe at Home: Yes Assistive Devices: Glasses and Stair Lift Review of Systems Review of Systems: All systems reviewed & are unremarkable except as noted in HPI & below Physical Exam Physical Exam: Pleasant woman in no distress Constitutional: WD/WN, vitals as above Neck: trachea midline, no thyromegaly Respiratory: normal respiratory effort, lungs clear to auscultation Cardiovascular: RRR, no murmur, no edema Gastrointestinal (Abdomen): normal bowel sounds, soft, nontender, no hepatosplenomegaly Results & Data Vital Signs (Past 12 Hours) Vital Signs Temp Pulse Pulse Resp BP Pulse Ox O2 Del Method 01/07/25 11:19 36.6 C 70 18 130/80 95 Room Air 01/07/25 08:30 Room Air 01/07/25 08:19 36.9 C 78 18 146/84 H 96 Room Air 01/07/25 07:45 76 132/83 01/07/25 07:00 70 01/07/25 03:57 36.8 C 79 18 121/82 93 Room Air Laboratory Results 01/07/25 01/06/25 01/06/25 Range/Units 06:17 18:33 17:08 WBC 2.88 L (4.8-10.8) K/ul RBC 3.81 L (4.20-5.40) M/uL Hgb 12.7 D (12.0-16.0) g/dl Hct 36.7 L (37.0-47.0) % MCV 96.3 (80.0-100.0) fL MCH 33.3 (25.0-34.0) pg MCHC 34.6 (32.0-36.0) g/dL RDW Std Deviation 49.2 H (36.4-46.3) fL RDW Coeff of Chica 14.0 (11.5-14.5) % Plt Count 92 L (130-400) K/uL MPV 8.5 L (9.4-12.4) fL Immature Gran % (Auto) % Neut % (Auto) % Lymph % (Auto) % Cass % (Auto) % Eos % (Auto) % Baso % (Auto) % Neut # (Auto) (1.40-6.50) K/uL Lymph # (Auto) (1.20-3.40) K/uL Cass # (Auto) (0.11-0.59) K/uL Eos # (Auto) (0.00-0.50) K/uL Baso # (Auto) (0.00-0.20) K/uL Immature Gran # (Auto) (0.01-0.20) K/uL PT (9.0-12.0) Seconds INR (0.9-1.1) Sodium 141 (136-145) mmol/L Potassium 4.6 (3.5-5.1) mmol/L Chloride 112 H (98-107) mmol/L Carbon Dioxide 23 (21-32) mmol/L Anion Gap 6 (3-11) BUN 4 L (6-23) mg/dl Creatinine 0.71 (0.6-1.2) mg/dl Est Cr Clr Drug Dosing 80.3 eGFR 94.30 BUN/Creatinine Ratio 5.6 L (10-20) Glucose 85 (70-99(Fasting)) mg/dl Lactate 1.1 (0.4-2.0) mmol/L Calcium 8.5 L (8.6-10.3) mg/dl Phosphorus (2.5-4.9) mg/dl Magnesium 1.9 (1.7-2.4) mg/dl Total Bilirubin 0.9 (0.2-1.0) mg/dl Direct Bilirubin (0-0.2) mg/dl AST 91 H (13-39) U/L ALT 63 H (7-52) U/L Alkaline Phosphatase 67 (34-104) U/L Total Protein 6.0 D (6.0-8.3) gm/dl Albumin 3.7 (3.4-5.0) gm/dl Globulin 2.3 L (2.5-4.0) gm/dl Albumin/Globulin Ratio 1.6 (0.9-2) Lipase (11-82) U/L Vitamin B12 > 1500 H (180-914) pg/ml Procalcitonin (0-0.5) ng/ml Urine Color Yellow Urine Appearance Clear (Clear) Urine pH 6.5 (4.5-7.5) Ur Specific Ulysses 1.013 (1.000-1.030) Urine Protein Negative (Negative) Urine Glucose (UA) Negative (Negative) Urine Ketones 3+ H (Negative) Urine Blood Negative (Negative) Urine Nitrite Negative (Negative) Urine Bilirubin Negative (Negative) Urine Urobilinogen Negative (Negative) Ur Leukocyte Esterase 1+ H (Negative) Urine WBC (Auto) 6-10 H (0-5) /hpf Urine RBC (Auto) >20 H (0-2) /hpf U Hyaline Cast (Auto) 0-2 (0-2) /lpf U Epithel Cells (Auto) 0-2 (0-2) /hpf Urine Bacteria (Auto) None Seen (None Seen) Urine Mucus Present A (None Prsent) Urine Comment Urine Opiates Screen Pos H (Neg) U Codeine Confrm GC/MS Pending Ur Morphine (GC/MS) Pending Ur Hydrocodone (GC/MS) Pending Ur Norhydrocodone Pending Ur Noroxycodone Pending Urine Oxycodone (GC/MS) Pending U Oxymorphone GC/MS Pending Ur Methadone, Qual Neg (Neg) Ur Hydromorphone (GC/MS) Pending Urine Fentanyl Screen Neg (Neg) Urine Barbiturates Neg (Neg) Ur Phencyclidine (PCP) Neg (Neg) U Amphetamin/Meth Scrn Neg (Neg) MDMA (Ecstasy) Screen Neg (Neg) U OH-Alprazolam Confrm Pending U Benzodiazepines Scrn Pos H (Neg) 7-Amino Clonazepam Pending Ur Nordiazepam Confirm Pending U OH-ethylflurazepam Pending U Lorazepam Cnf GC/MS Pending U Oxazepam Confm GC/MS Pending Ur Temazepam Confirm Pending U OH-Triazolam Confirm Pending U OH-Midazolam Confirm Pending Ur Cocaine Metabolite Neg (Neg) U Marijuana (THC) Screen Pos H (Neg) U Marijuana THC Carboxy Pending Drug Screen Comment Pending Ethyl Alcohol mg/dL (<10.0) mg/dl 01/06/25 01/06/25 Range/Units 16:20 14:27 WBC 7.42 (4.8-10.8) K/ul RBC 4.81 (4.20-5.40) M/uL Hgb 16.3 H (12.0-16.0) g/dl Hct 44.7 (37.0-47.0) % MCV 92.9 (80.0-100.0) fL MCH 33.9 (25.0-34.0) pg MCHC 36.5 H (32.0-36.0) g/dL RDW Std Deviation 44.2 (36.4-46.3) fL RDW Coeff of Chica 13.1 (11.5-14.5) % Plt Count 145 D (130-400) K/uL MPV 8.5 L (9.4-12.4) fL Immature Gran % (Auto) 0.3 % Neut % (Auto) 76.8 % Lymph % (Auto) 15.2 % Cass % (Auto) 6.6 % Eos % (Auto) 0.8 % Baso % (Auto) 0.3 % Neut # (Auto) 5.70 (1.40-6.50) K/uL Lymph # (Auto) 1.13 L (1.20-3.40) K/uL Cass # (Auto) 0.49 (0.11-0.59) K/uL Eos # (Auto) 0.06 (0.00-0.50) K/uL Baso # (Auto) 0.02 (0.00-0.20) K/uL Immature Gran # (Auto) 0.02 (0.01-0.20) K/uL PT 12.4 H (9.0-12.0) Seconds INR 1.2 H (0.9-1.1) Sodium 136 (136-145) mmol/L Potassium 3.9 (3.5-5.1) mmol/L Chloride 103 (98-107) mmol/L Carbon Dioxide 17 L (21-32) mmol/L Anion Gap 16 H (3-11) BUN 5 L (6-23) mg/dl Creatinine 0.85 (0.6-1.2) mg/dl Est Cr Clr Drug Dosing Not Reportable eGFR 75.98 BUN/Creatinine Ratio 5.9 L (10-20) Glucose 89 (70-99(Fasting)) mg/dl Lactate (0.4-2.0) mmol/L Calcium 10.3 (8.6-10.3) mg/dl Phosphorus 1.7 L (2.5-4.9) mg/dl Magnesium 1.6 L (1.7-2.4) mg/dl Total Bilirubin 1.2 H D (0.2-1.0) mg/dl Direct Bilirubin 0.3 H (0-0.2) mg/dl AST 25 (13-39) U/L ALT 20 (7-52) U/L Alkaline Phosphatase 58 (34-104) U/L Total Protein 8.3 D (6.0-8.3) gm/dl Albumin 5.1 H (3.4-5.0) gm/dl Globulin 3.2 (2.5-4.0) gm/dl Albumin/Globulin Ratio 1.6 (0.9-2) Lipase 44 (11-82) U/L Vitamin B12 (180-914) pg/ml Procalcitonin < 0.02 (0-0.5) ng/ml Urine Color Urine Appearance (Clear) Urine pH (4.5-7.5) Ur Specific Ulysses (1.000-1.030) Urine Protein (Negative) Urine Glucose (UA) (Negative) Urine Ketones (Negative) Urine Blood (Negative) Urine Nitrite (Negative) Urine Bilirubin (Negative) Urine Urobilinogen (Negative) Ur Leukocyte Esterase (Negative) Urine WBC (Auto) (0-5) /hpf Urine RBC (Auto) (0-2) /hpf U Hyaline Cast (Auto) (0-2) /lpf U Epithel Cells (Auto) (0-2) /hpf Urine Bacteria (Auto) (None Seen) Urine Mucus (None Prsent) Urine Comment Urine Opiates Screen (Neg) U Codeine Confrm GC/MS Ur Morphine (GC/MS) Ur Hydrocodone (GC/MS) Ur Norhydrocodone Ur Noroxycodone Urine Oxycodone (GC/MS) U Oxymorphone GC/MS Ur Methadone, Qual (Neg) Ur Hydromorphone (GC/MS) Urine Fentanyl Screen (Neg) Urine Barbiturates (Neg) Ur Phencyclidine (PCP) (Neg) U Amphetamin/Meth Scrn (Neg) MDMA (Ecstasy) Screen (Neg) U OH-Alprazolam Confrm U Benzodiazepines Scrn (Neg) 7-Amino Clonazepam Ur Nordiazepam Confirm U OH-ethylflurazepam U Lorazepam Cnf GC/MS U Oxazepam Confm GC/MS Ur Temazepam Confirm U OH-Triazolam Confirm U OH-Midazolam Confirm Ur Cocaine Metabolite (Neg) U Marijuana (THC) Screen (Neg) U Marijuana THC Carboxy Drug Screen Comment Ethyl Alcohol mg/dL < 10.0 (<10.0) mg/dl Diagnostic Findings Chest X-Ray 01/06/25 16:55 Clinical History: Chills and nausea Technique: A frontal view of the chest was obtained Comparison is made to the prior examination dated 12/13/2024 Findings: There are no confluent pulmonary infiltrates. The heart size is within normal limits. No pleural effusion or pneumothorax is seen. There is no definite pulmonary nodule. No fracture is noted. There is thoracic scoliosis and degenerative disc disease. There is a cervical fusion Impression: No active disease Electronically signed by Khang Leal 01-06-2025 5:54 PM KUB X-Ray 01/06/25 16:55 Clinical history: Pain One view of the abdomen was obtained Findings: There are mildly prominent air-filled loops of small and large bowel, which may be due to ileus. Obstruction is less likely. No renal or ureteral calculi are seen. No foreign body is evident. There is lumbar scoliosis and degenerative disc disease. Surgical clips are seen consistent with prior cholecystectomy Impression: Possible mild ileus Electronically signed by Khang Leal 01-06-2025 5:[address] 01/06/25 19:54 Exam(s): CT L SPINE EXAM: CT Lumbar Spine Without Intravenous Contrast CLINICAL HISTORY: Reason for exam: severe l-spine pain; compression fx?. TECHNIQUE: Axial computed tomography images of the lumbar spine without intravenous contrast. CTDI is 36.77 mGy and DLP is 971.01 mGy-cm. Automated exposure control was utilized for the study. A dose lowering technique was utilized adhering to the principles of ALARA. COMPARISON: No relevant prior studies available. FINDINGS: Vertebrae: No acute fracture. No significant misalignment. Discs/spinal canal/neural foramina: Advanced disc degeneration L3/L4 and L4/L5.There is spinal stenosis at L3/L4 and L4/L5, though the exact degree is difficult to assess by CT without myelographic contrast. Soft tissues: Unremarkable. IMPRESSION: No acute findings in the lumbar spine. Spinal stenosis at L3/L4 and L4/L5 difficult to fully assess by CT without myographic contrast. If there are neurologic symptoms, consider further evaluation with MRI. Electronically signed by: Oseas Vieira MD 01/06/25 23:07 PM
--- NOTE | 2025-01-07 14:15 | Pain Management Consultation ---
Date of Consultation January 07, 2025 Assessment & Plan (1) Lumbar spinal stenosis: Neurogenic claudication status: unspecified Qualified Code(s): M48.061 - Spinal stenosis, lumbar region without neurogenic claudication (2) Severe lumbar pain: (3) Degenerative joint disease (DJD) of lumbar spine: (4) Thrombocytopenia: Plan 1. Agree with spine Ortho consult for evaluation of multilevel multifactorial lumbar spine number stenosis. Patient has previously failed to have relief from epidural steroid reaction, medial branch radiofrequency ablation, trigger point injections. With patient's platelet count below 100,000, unable to offer any interventional options at this time. 2. If patient is able to achieve platelet count greater than 100,000 on a sustained basis, may consider bilateral SI joint injection for sacroiliitis. Patient had multiple provocative findings on examination. 3. Continue physical therapy versus chiropractor versus OMT for pelvic realignment to help alleviate sacroiliitis 4. Will check a leg length series as patient appears to have a leg length discrepancy with bedside examination. 5. Check vitamin D level as patient previously has vitamin D insufficiency. Her level was 32.8 ng/mL in March 2024. 6. Continue management of narcotics and opiates through the patient's primary care provider. Patient states that she has a contract established with them and they are managing her medications. I did discuss the patient with Dr. Jj from orthospine as well as Dr. Gonzalez from the hospitalist team. Thank you for this consult. The pain management team will sign off at this time. Please feel free to contact us for further information or to reconsult. Case discussed with Dr. Johns. History of Present Illness Reason for Consultation: Low back pain Attending Physician: Samson Gonzalez DO History of Present Illness Attending: Dr. Johns Mrs. Whitfield is a 64-year white female who was most recently seen in the pain clinic 12/10/2023. She reports persistent axial low back pain. Patient has history of chronic axial low back pain without radicular pattern. She underwent bilateral L4, L5 and S1 cervical medial branch RFA procedures in July 2023 in which she reported significant relief of her typical pain. She then presented in October due to symptom recurrence of axial pain. Trigger point injection were completed which provided 2 days of short-term benefit only. She reports that any increased levels of activity contributes to significant increase in her pain. She indicates her pain is minimal in the sitting and supine positions rating her pain a 4-6/10 at its best but escalating to an 8/10 at its worst with standing and walking and with prolonged sitting. She reports performing any activity for a short period of time of 10-15 minutes contribute to significant increase in pain requiring her to sit down to experience any relief. The pain is 100% axial across the mid lumbar and lumbosacral junctions bilaterally and equal without radiation to the gluteal or leg locations. She does report occasional pain into of the left gluteal and posterior thigh. She denies any perceived weakness in the lower extremity, foot drop or falling. Patient is very frustrated as she feels as though she has seen multiple people and there is not coordination between healthcare providers. PDMP is reviewed and patient has received treatment with narcotics through her primary care physician. She reports that she has a pain contract with them and they manage outpatient medications. Lumbar spine CT 01/06/2025 Lumbar spine MRI 03/26/2024 Previous interventions include physical therapy, lumbar medial branch block, lumbar radiofrequency ablation, oxycodone, morphine, muscle relaxants, stretching, exercise, trigger point injections Patient denies bowel or bladder incontinence. She has no saddle anesthesia. Although she has a chronic thrombocytopenia, she denies any unusual bleeding or bruising. No other constitutional complaints Allergies Allergy/AdvReac Type Severity Reaction Status Date / Time brexpiprazole [From Rexulti] Allergy Severe "Makes me Verified 01/02/25 11:47 very lofty" aripiprazole AdvReac Severe Seizure Verified 01/02/25 11:47 activity per [facility] EMR gabapentin AdvReac Severe Confusion Verified 01/02/25 11:47 ibuprofen AdvReac Severe Per [facility] Verified 01/02/25 11:47 EMR to be avoided given cirrhosis Home Medications Medication Instructions Recorded Confirmed Type rizatriptan 10 mg disintegrating 10 mg PO UD PRN Migraine Headache 11/21/21 01/06/25 History tablet (Maxalt-WATER PURIFIER) calcium 600 mg (as 2 cap PO QAM 08/02/22 01/06/25 History carbonate)-vitamin D3 12.5 mcg (500 unit) capsule (Calcium with Vit D3) carvedilol 3.125 mg tablet 3.125 mg PO BID 04/26/24 01/06/25 History fluoxetine 40 mg capsule (Prozac) 40 mg PO QAM 04/26/24 01/06/25 History atorvastatin 40 mg tablet 40 mg PO QAM #30 tabs 04/30/24 01/06/25 Rx aspirin 81 mg tablet,delayed 81 mg PO QAM 06/18/24 01/06/25 History release multivitamin 1 tab PO QAM 06/18/24 01/06/25 History potassium 99 mg tablet 99 mg PO QAM 06/18/24 01/06/25 History diazepam 5 mg tablet 5 mg PO BID PRN Anxiety 09/22/24 01/06/25 History ferrous sulfate 325 mg (65 mg 325 mg PO QAM 09/22/24 01/06/25 History iron) tablet (iron) magnesium 250 mg tablet 250 mg PO QAM 11/01/24 01/06/25 History nystatin 100,000 unit/gram topical 1 applic topical BID 11/29/24 01/06/25 History powder nystatin 100,000 unit/gram topical 1 applic topical TID 11/29/24 01/06/25 History powder bdkqti-mlwblpid-plwzpjk 1 cap PO AC #30 caps 01/05/25 01/06/25 Rx 36,000-114,000-180,000 unit capsule,delay rel (Creon) acetaminophen 500 mg tablet 500 mg PO QID #0 tabs 01/09/25 01/06/25 Rx buspirone 15 mg tablet 15 mg PO BID #30 tabs 01/09/25 Rx mirtazapine 7.5 mg tablet 7.5 mg PO HS #30 tabs 01/09/25 Rx pantoprazole 40 mg tablet,delayed 40 mg PO BID #60 tabs 01/09/25 Rx release sucralfate 1 gram tablet (Carafate) 1 g PO AC 7 days #21 tabs 01/09/25 Rx oxycodone 5 mg tablet 5 mg PO Q6H PRN pain #30 tabs 01/10/25 Rx Pain History Chief Complaint Chief Complaint: Low back pain Previous Imaging and Results Imaging: Lumbar Spine CT 01/06/25 19:54 Exam(s): CT L SPINE EXAM: CT Lumbar Spine Without Intravenous Contrast CLINICAL HISTORY: Reason for exam: severe l-spine pain; compression fx?. TECHNIQUE: Axial computed tomography images of the lumbar spine without intravenous contrast. CTDI is 36.77 mGy and DLP is 971.01 mGy-cm. Automated exposure control was utilized for the study. A dose lowering technique was utilized adhering to the principles of ALARA. COMPARISON: No relevant prior studies available. FINDINGS: Vertebrae: No acute fracture. No significant misalignment. Discs/spinal canal/neural foramina: Advanced disc degeneration L3/L4 and L4/L5.There is spinal stenosis at L3/L4 and L4/L5, though the exact degree is difficult to assess by CT without myelographic contrast. Soft tissues: Unremarkable. IMPRESSION: No acute findings in the lumbar spine. Spinal stenosis at L3/L4 and L4/L5 difficult to fully assess by CT without myographic contrast. If there are neurologic symptoms, consider further evaluation with MRI. Electronically signed by: Oseas Vieira MD 01/06/25 23:07 PM Magnetic Resonance Report Patient: JUHI WHITFIELD Admit Date: 03/26/24 MR#: [id number] Address1: [address] [place] [address] Acct ID:[id number] Address2: Date: 1960 [facility] Zip: [place] [address] Age: 64 Location: 2N Sex: F Room/Bed: [address] Phy: Timmy Bruno MD Diagnosis: GEN WEAKNESS,HYPONATREMIA,CRIT LUMBAR SPINE STENO Carolynn Phy: Swetha Newberry DO Service Date: 03/26/24 Fam Phy: Interpreting Phy: Janette Pride MD Admit Phy: Timmy Bruno MD Ordering Phy: Richard Parrish MD cc: ~ Exam(s): MRI L SPINE Without Contrast 03/26/2024 EXAM: MR Lumbar Spine Without Intravenous Contrast CLINICAL HISTORY: Reason for exam: severe stenosis on CT, leg weakness. TECHNIQUE: Magnetic resonance images of the lumbar spine without intravenous contrast in multiple planes. COMPARISON: Prior CT scan of the lumbar spine from March 25, 2024. FINDINGS: Vertebrae: There are 7 cervical type vertebral bodies with a mild generalized curve to the left and shallow lumbar lordosis. There is normal vertebral body height and alignment. The bone marrow signal is heterogeneous with reactive endplate changes. No acute fracture. There are multiple Schmorl's nodes in the thoracolumbar spine. Spinal cord: Unremarkable. Normal signal. Soft tissues: Distended urinary bladder. Advanced atrophy of the iliopsoas, paraspinous intraspinous musculature. The aorta and IVC flow voids are intact. The visualized kidneys are unremarkable. DISCS/SPINAL CANAL/NEURAL FORAMINA: L1-L2: There is mild disc degeneration with annular disc bulge causing a mild subarticular recess stenosis with disc extending into the left neural foramen without evidence of impingement or significant stenosis. L2-L3: There is mild disc degeneration with annular disc bulge flattening the ventral thecal sac with disc extending to the neural foramina without impingement or significant stenosis. L3-L4: Moderate disc degeneration with annular disc bulge causing a mild subarticular recess stenosis with disc extending into the neural foramina causing a mild right stenosis without evidence of neural impingement, with superimposed degeneration pedicles and facet joint arthropathy causing a mild spinal canal stenosis. There is disc extending to the neural foramina causing a mild right stenosis without evidence of neural impingement. L4-L5: Advanced disc degeneration with annular disc bulge causing a severe subarticular recess stenosis with impingement of the transiting L5 nerve roots and a critical spinal canal stenosis with thecal sac area measuring 0.18 cm². There is disc extending to the neural foramina causing a moderate left stenosis with mild impingement of the left L4 nerve root ganglion. L5-S1: The intervertebral disc is normal. IMPRESSION: 1. Advanced disc degeneration at L4-5, moderate disc degeneration at L3- 4 and mild disc degeneration at L1-2, and L2-3 with annular disc bulging flattening the ventral thecal sac and causing a mild subarticular recess stenosis at L1-2, L3-4, and severe subarticular recess stenosis at L4-5 with impingement of the transiting L5 nerve roots. Recommend a surgical consult for decompression. 2. There is a critical spinal canal stenosis at L4-5 and a mild stenosis at L3-4. 3. There is a mild right L3-4, and moderate left L4-5 neural foraminal stenosis with mild impingement of the left L4 nerve root ganglion. 4. No evidence of fracture, infection, tumor or arachnoiditis. 5. Distended urinary bladder, recommend Renteria catheter for decompression. 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 These have been stopped... 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 These have been stopped" Spinal stenosis GERD (gastroesophageal reflux disease) Lumbar facet joint syndrome Lumbar spondylosis Hx of gastritis No recent/current issues Hx of tinnitus Hx of migraines Pulmonary hypertension Noted per remote records Most recent Echo 03/25/2024 with normal estimated RVSP at 31mmhg Seasonal allergies Hx of chronic pancreatitis Per records History of anemia Chronic pain disorder Back Positive ROSANGELA (antinuclear antibody) Stress incontinence Chronic cough Follows with [facility] pulm "Due to pollen" Usually during spring/summer HTN (hypertension) Osteoarthritis History of seizure (2010) Following subdural hematoma 2010 from fall Most recent seizure 2022 Pt follows with [facility] Neuro; per 01/01/24 Neuro note, pt had "episode of speech and movement arrest in the context of a history of posttraumatic seizures" 04/2023. Had normal EEG. Pt advised by neuro to start keppra but pt refused. Surgical History History of bone marrow biopsy (06/2024) [facility] History of craniotomy (2010) R/t subdural hematoma from fall Hx of hysterectomy Hx of cholecystectomy History of carpal tunnel release R/L Hx of arthroscopy of shoulder Right Hx of arthroscopy of left knee S/P cervical spinal fusion C4-C7 per imaging review, ~2007 History of onel hole surgery (2010) > craniotomy History of esophagogastroduodenoscopy (EGD) History of colonoscopy Family History Mother , age 82 - uncertain cause Hypertension Other No family history of adverse response to anesthesia Social History Smoking Status: Former smoker Tobacco Type: Cigarettes Age Started Using Tobacco: 18; Age Quit Using Tobacco: 30; packs per day: 1; Second Hand Exposure: No; Do You Dip or Chew Tobacco: No; Hx Alcohol Use: No Hx Substance Use: Yes Substance Use Type Other:: does not have her own medical THC card; uses spouse's medical THC 1x/week Preferred Language: Bhutanese Communication Ability: Effective Director Career Required: No Beliefs That Will Affect Care: None marital status: Current Living Situation: Spouse Current Living Situation Comment: Lives at home with . 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 Memory appears grossly intact, resting comfortably on examination Skin: No evidence of edema, erythema or skin breakdown. No rashes, lesions, ulcers, induration noted Musculoskeletal: Head is normocephalic and atraumatic, gait shuffled. Lumbar: Lordotic curve: Loss of lumbar Lordosis Range of motion is [decreased/not decreased] in all planes [secondary to pain] Tenderness: [Tender/Nontender] over the axial midline Facet provocation: [Positive/Negative] [bilaterally] [right>left] [left>right] Straight leg raise: [Negative] Bilaterally Strength: Strength is equal bilaterally with 5 out of 5 strength in all planes Sensation of lower extremities: Intact bilaterally Deep tendon reflexes: Rated at 2/4 in bilateral patellar and Achilles tendons Myofascial spasm: No appreciable lumbar spasm. No discrete trigger points noted Greater trochanters: Nontender bilaterally Sacroiliac joints: Nontender bilaterally. Negative Gaenslen's test bilaterally. Negative FADIR. Negative DAVID. Negative compression test. No appreciable leg length discrepancy Pathologic reflexes noted: None Neuro: No nystagmus noted, the tongue is midline
[2025-01-07 14:58] LABS: Hematocrit (blood only) 36.7 % (37.0-47.0); Hemoglobin 12.8 g/dl (12.0-16.0); Mean Corpuscular Hemoglobin 33.7 pg (25.0-34.0); Mean Corpuscular Hgb Conc 34.9 g/dL (32.0-36.0); Mean Corpuscular Volume 96.6 fL (80.0-100.0); Mean Platelet Volume 8.4 fL (9.4-12.4); Platelet Count 102 K/uL (130-400); RDW Coefficient of Variation 13.9 % (11.5-14.5); RDW Standard Deviation 48.8 fL (36.4-46.3); White Blood Count 3.49 K/ul (4.8-10.8)
[2025-01-07 15:12] LABS: Albumin Globulin Ratio 1.5 (0.9-2); Albumin Level 3.8 gm/dl (3.4-5.0); BUN Creatinine Ratio 7.7 (10-20); Bilirubin,Total 0.9 mg/dl (0.2-1.0); Calcium 8.5 mg/dl (8.6-10.3); Creatinine Clr Calc Pharmacy 87.8 ml/min; Globulin 2.6 gm/dl (2.5-4.0); Potassium 3.9 mmol/L (3.5-5.1); Total Protein 6.4 gm/dl (6.0-8.3)
--- NOTE | 2025-01-07 18:03 | Billing Data ---
Date of Service January 07, 2025 Coding Level of Care Code 42765 SUB INP/OBS CARE
[2025-01-07 18:16] LABS: Adenovirus PCR Not Detected (NotDetected); Bordetella parapertussis PCR Not Detected (NotDetected); Bordetella pertussis PCR Not Detected (NotDetected); Chlamydia pneumoniae PCR Not Detected (NotDetected); Coronavirus 229E PCR Not Detected (NotDetected); Coronavirus CoV-2 (COVID19)PCR Not Detected (NotDetected); Coronavirus HKU1 PCR Not Detected (NotDetected); Coronavirus NL63 PCR Not Detected (NotDetected); Coronavirus OC43PCR Not Detected (NotDetected); Human Metapneumovirus PCR Not Detected (NotDetected); Influenza A PCR Not Detected (NotDetected); Influenza B PCR Not Detected (NotDetected); Mycoplasma pneumoniae PCR Not Detected (NotDetected); Parainfluenza Virus 1 PCR Not Detected (NotDetected); Parainfluenza Virus 2 PCR Not Detected (NotDetected); Parainfluenza Virus 3 PCR Not Detected (NotDetected); Parainfluenza Virus 4 PCR Not Detected (NotDetected); Respiratory Syncytial VirusPCR Not Detected (NotDetected); Rhinovirus/Enterovirus PCR Not Detected (NotDetected)
--- NOTE | 2025-01-07 20:00 | XRay Report ---
EXAM: XR leg length study CLINICAL HISTORY: B/L Sacroiliitis. TECHNIQUE: X-ray, AP standing projections of both lower limbs radiographs were obtained. COMPARISON: None. FINDINGS: No significant limb length discrepancy was detected. Right lower limb = 88.0 cm Left lower limb = 87.4 cm Right femur = 44.3 cm Left femur = 45.2 cm Right tibia = 41.2 cm Left tibia = 40.6 cm Normal vqo-noce-itdyp (HKA) angles bilaterally. Bones: Normal alignment of both lower limb bones No fractures or dislocations. No lytic or sclerotic lesions. No periosteal reaction or abnormal bone formation. Joint: Normal appearance of the joints. Soft Tissues: Normal appearance of the soft tissues No abnormal masses, swelling, or calcifications. IMPRESSION: 1. No significant limb length discrepancy was detected. 2. No evidence of fractures, dislocations, or significant abnormalities. DISCLAIMER:A subtle bone abnormality or fracture may not be readily apparent on x-rays, thus clinical correlation and further imaging including follow up CT, MRI, or follow up x-rays are advised as needed. Electronically signed by Isael Fitzpatrick 01-07-2025 7:58 PM
[2025-01-08 07:29] LABS: Basophils # (auto) 0.01 K/uL (0.00-0.20); Basophils % (auto) 0.3 %; Eosinophils # (auto) 0.17 K/uL (0.00-0.50); Eosinophils % (auto) 5.2 %; Hematocrit (blood only) 38.8 % (37.0-47.0); Hemoglobin 13.7 g/dl (12.0-16.0); Immature Granulocytes # (auto) 0.01 K/uL (0.01-0.20); Immature Granulocytes % (auto) 0.3 %; Lymphocytes # (auto) 0.55 K/uL (1.20-3.40); Lymphocytes % (auto) 16.9 %; Mean Corpuscular Hemoglobin 33.7 pg (25.0-34.0); Mean Corpuscular Hgb Conc 35.3 g/dL (32.0-36.0); Mean Corpuscular Volume 95.3 fL (80.0-100.0); Mean Platelet Volume 8.3 fL (9.4-12.4); Monocytes # (auto) 0.44 K/uL (0.11-0.59); Monocytes % (auto) 13.5 %; Neutrophils # (auto) 2.08 K/uL (1.40-6.50); Neutrophils % (auto) 63.8 %; Platelet Count 100 K/uL (130-400); RDW Coefficient of Variation 13.7 % (11.5-14.5); Red Blood Count 4.07 M/uL (4.20-5.40); White Blood Count 3.26 K/ul (4.8-10.8)
[2025-01-08 08:00] LABS: Albumin Globulin Ratio 1.5 (0.9-2); BUN Creatinine Ratio 10.8 (10-20); Bilirubin,Total 0.7 mg/dl (0.2-1.0); Calcium 8.8 mg/dl (8.6-10.3); Creatinine Clr Calc Pharmacy 80.8 ml/min; Globulin 2.6 gm/dl (2.5-4.0); Potassium 3.8 mmol/L (3.5-5.1); Total Protein 6.6 gm/dl (6.0-8.3)
--- NOTE | 2025-01-08 08:08 | Hospitalist Progress Note ---
Date of Service January 08, 2025 Assessment & Plan (1) Chronic back pain: Plan: 64 y/o with chronic back pain on chronic opioid therapy, chronic pancreatitis, cirrhosis, HTN, prior CVA, COPD, and pancytopenia admitted for pain control and nausea/vomiting. #Severe lumbar back pain #DJD #Spinal Stenosis #Sacroiliitis CT Spine with disc degeneration and spinal stenosis L3-L5. Prior MRI with multilevel disc building and foraminal/central canal narrowing. Patient requested pain management eval - consider injection once platelets > 100. Ortho spine not available at present. pain management consult - appreciate recs Pain regimen: oxy 5 mg PRN mild-moderate Dilaudid 0.25 mg IV for severe pain #Opioid Use #Polypharmacy Patient on chronic opioids - PDMP with multiple 2 weeks scripts of oxy casimiro over several months, started ER morphine 15 mg BID in November. noted that she went through a 60 tabs in 2 weeks. Patient on additional cognition impairing medications - valium, muscle relaxers, SSRI, remeron. Patient does have some cognitive impairment and would benefit from limiting polypharmacy. Multiple medication changes made on admission. plan to wean medications decrease valium to 2 mg BID, wean over the next few weeks decreased remeron to 7.5 mg HS decreased buspirone to 15 mg BID hold baclofen/flexeril pain control as above #Cirrhosis #Heavy Alcohol Use #Hep C - treated #Chronic Pancreatitis Known varices - continue beta blockage, GI consulted - appreciate recs. #Cognitive impairment Likely multifactorial - polypharmacy, alcoholic dementia, prior TBI with SDH requiring evacuation (2010), nutritional deficiencies continue thiamine, multivitamin, folate minimize polypharmacy delirium precautions #Abdominal pain #Anorexia # Nausea/Diarrhea #Weight Loss Etiology unclear - chronic pancreatitis vs PUD vs gastritis/esophagitis vs multifactorial. Is on Creon 1 cap TID with meals for chronic pancreatitis. Continue PPI BID, GI consult - appreciate recs. refeeding labs - replete as indicated continue folate/thiamine/multivitamin nutrition consult #HTN Continue coreg BID; hold losartan as BP #Pancytopenia Likely multifactorial - decompensated cirrhosis, malnutrition, BM suppression. Trend CBC. Continue folate/multivitamin/thiamine. - trend CBC Diet: clear liquid Code: full VTE ppx: lovenox Dispo: med/surg with tele (2) Degenerative joint disease (DJD) of lumbar spine: (3) Intractable vomiting with nausea: Admission and Anticipated Discharge Date Admission Date: January 06, 2025 Supervising Physician Co-Signing Physician Notes I personally examined the patient and verified all rachel points of history and exam, discussed case, and agree with decision making with Dr Gay feels good as it relates to nausea. GI in the room whenever I saw her. She is doing better and they fortunately have nothing else they need to add. Back pain about the same. Extensive discussions, arrives just as I was leaving, revisited and discussed everything again. Vitals noted, in general she is awake and alert pleasant no distress. HEENT normocephalic atraumatic mucous membranes moist. Breathing unlabored no accessory muscle use good effort. Skin shows no rashes no pallor or icterus. Musculoskeletal exam shows left greater than right bilateral piriformis muscle region musculature high tone tender decreased range of motion Post isometric relaxation muscle energyimproved, patient tolerated well and then I taught to do the same for home, ensured patient had a good idea of how to stretch on her own as well. Intractable nausea and vomitingnow that there is more back story on what she has been doing with pain medications, I worry that some of the nausea and vomiting may have been narcotics and potentially narcotics withdrawal mediatedshe seems to be doing better. continue twice daily Protonix, twice daily Pepcid, and follow. Intractable back pain/pelvic somatic dysfunctionher current presentation seems mostly consistent with lumbosacral strain/tight piriformis mechanism of the biomechanical back pain precipitating secondary SI joint painOMT as above, continue diclofenac gel. Taught "home OMT", PCP is a DO and they believe she does OMT, if not would ask for a referral within her primary care physician's office as several of the DO's do. heel lift (probably would start with 2 mm) for what appears to be a 6 mm shorter left leg. Time. currently still feels like she is in pretty significant pain and does not feel well enough to go home yet. If she requires any sort of a short prescription of narcotic pain medicines at discharge, discussed with her and her that her should be the 1 in charge of the patient taking them, given that the patient accidentally took the meds incorrectly whenever she was prescribed them about a month ago. DVT proph - lovenox otherwise as above Subjective Patient seen at bedside this AM. In good spirits. Has been eating/drinking a bit better. No fecal or urinary incontinence. No saddle paresthesias. No fevers or chills. No CP or SOB. Continue significant back pain. Has a yeast rash in her groin that she notes has improved significantly. Review of Systems 2 Review of Systems: As per HPI Physical Exam 2 Physical Exam: Constitutional: well appearing, no acute distress HEENT: normocephalic, no conjunctival injection CV: RRR, no m/r/g, clinically well perfused Respiratory: CTA bilaterally, no wheezing no increased work of breathing GI: soft, nondistended MSK: no gross deformities noted Skin: warm, dry, no rashes Neuro: alert, oriented, no FND noted Psych: mood and affect congruent Results & Data Results & Data Laboratory Results 01/08/25 07:13 01/08/25 07:13 Resident Activity Tracking Resident Involvement: Resident Care Provided Care Provided: Adult Hospital Medicine (1) Chronic back pain Back pain laterality: unspecified Back pain location: low back pain Sciatica presence: unspecified whether sciatica present Qualified Code(s): M54.50 - Low back pain, unspecified; G89.29 - Other chronic pain
--- NOTE | 2025-01-08 11:24 | Gastroenterology Progress Note ---
Date of Service January 08, 2025 Assessment & Plan (1) Intractable abdominal pain: Plan: She doesn't seem to be having GI issues now. She thinks her abdominal pain is tied to her back issues which could well be the case. Do not plan EGD for now. Would continue Creon. Will follow Admission and Anticipated Discharge Date Admission Date: January 06, 2025 Subjective She tells me her "gut is not a problem" it is her back and her "abdomen". She is eating solid food and having no pain with it. She did have a quick postprandial bowel movement but it was solid. She is most frustrated with trying to get her back fixed. Physical Exam Physical Exam: Alert, aggravated but in no physical distress Constitutional: WD/WN, vitals as above Results & Data Vital Signs (Past 12 Hours) Vital Signs Temp Pulse Pulse Resp BP Pulse Ox O2 Del Method 01/08/25 07:30 36.5 C 90 18 124/81 96 Room Air 01/08/25 07:20 68 01/08/25 03:00 36.5 C 70 18 128/79 97 Room Air
--- NOTE | 2025-01-08 16:25 | Billing Data ---
Date of Service January 08, 2025 Coding Level of Care Code 24167 SUB INP/OBS CARE
[2025-01-08 19:45] VITALS: RESP 18
[2025-01-09 06:59] LABS: BUN Creatinine Ratio 6.5 (10-20); Calcium 8.6 mg/dl (8.6-10.3); Creatinine Clr Calc Pharmacy 84.7 ml/min; Potassium 3.4 mmol/L (3.5-5.1)
[2025-01-09 10:32] LABS: Basophils # (auto) 0.02 K/uL (0.00-0.20); Basophils % (auto) 0.6 %; Eosinophils # (auto) 0.15 K/uL (0.00-0.50); Eosinophils % (auto) 4.4 %; Hematocrit (blood only) 40.1 % (37.0-47.0); Hemoglobin 13.9 g/dl (12.0-16.0); Immature Granulocytes # (auto) 0.01 K/uL (0.01-0.20); Immature Granulocytes % (auto) 0.3 %; Lymphocytes # (auto) 0.67 K/uL (1.20-3.40); Lymphocytes % (auto) 19.5 %; Mean Corpuscular Hemoglobin 33.6 pg (25.0-34.0); Mean Corpuscular Hgb Conc 34.7 g/dL (32.0-36.0); Mean Corpuscular Volume 96.9 fL (80.0-100.0); Mean Platelet Volume 8.7 fL (9.4-12.4); Monocytes # (auto) 0.51 K/uL (0.11-0.59); Monocytes % (auto) 14.9 %; Neutrophils # (auto) 2.07 K/uL (1.40-6.50); Neutrophils % (auto) 60.3 %; Platelet Count 109 K/uL (130-400); RDW Coefficient of Variation 13.4 % (11.5-14.5); RDW Standard Deviation 47.3 fL (36.4-46.3); Red Blood Count 4.14 M/uL (4.20-5.40); White Blood Count 3.43 K/ul (4.8-10.8)
[2025-01-09 11:44] VITALS: BP 117/74; PULSE 72; TEMP 98.1; O2SAT 97
[2025-01-09 14:57] LABS: 7-Aminoclonaz, Confirm NEGATIVE ng/mL (<25); Codeine Urine NEGATIVE ng/mL (<50); Hydro-Alp Ur, GC/MS NEGATIVE ng/mL (<25); Hydrocodone Urine NEGATIVE ng/mL (<50); Hydromor Urine NEGATIVE ng/mL (<50); Hydroxyethylflurazepam, Conf NEGATIVE ng/mL (<50); Hydroxymidazolam Ur, GC/MS NEGATIVE ng/mL (<50); Hydroxytriazolam NEGATIVE ng/mL (<50); Lorazepam, Ur GC/MS NEGATIVE ng/mL (<50); Marijuana Quant, GCMS Urine 59 ng/mL (<5); Morphine Urine 5650 ng/mL (<50); Nordiazepam, Confirm 792 ng/mL (<50); Norhydrocodone Conf Ur NEGATIVE ng/mL (<50); Noroxycodone Urine 804 ng/mL (<50); Oxazepam Ur, GC/MS 1460 ng/mL (<50); Oxycodone Urine 84 ng/mL (<50); Oxymorph Urine NEGATIVE ng/mL (<50); Temazepam, Confirm 1650 ng/mL (<50)
--- NOTE | 2025-01-09 15:48 | Discharge Summary ---
Discharge Summary Date of Service date of admission - January 06, 2025 date of discharge - January 09, 2025 Principal Dx & Hospital Course #1 = Principal Diagnosis (1) Severe lumbar pain: (2) Degenerative joint disease (DJD) of lumbar spine: (3) Spinal stenosis: (4) Abdominal pain: (5) Anorexia: (6) Chronic pancreatitis: (7) History of craniotomy: (8) Hypomagnesemia: (9) History of alcohol use disorder: (10) Elevated LFTs: (11) Polypharmacy: (12) Cognitive impairment: (13) Cirrhosis: (14) Pancytopenia: (15) Weight loss: Plan 64yo female with chronic lumbar back pain on narcotics, chronic pancreatitis, prior alcoholism, TBI / SDH requiring craniotomy in 2010, tiny lacunar stroke 04/2024, COPD, cognitive impairment, cirrhosis, HTN, pancytopenia (likely due to cirrhosis), polypharmacy, and recent hospitalization from 01/04 to 01/05 for nausea/emesis/abd pain. Symptoms were thought due to chronic pancreatitis and perhaps a gastroenteritis but her stool BioFire panel and respiratory BioFire panel were both fully negative. Returned to [facility] with ongoing back pain, poor PO intake, and various GI symptoms. #severe lumbar back pain with known lumbar DJD & spinal stenosis - -this was actually the patient's main complaint at time of ER presentation -she was distressed over her pain and it was interfering with day to day living at home -based on prior MRI her most severe disease is at L4-L5 -she also has other levels of foraminal stenosis, DJD, etc. -per the PDMP has been on oxycodone prn pain, then was prescribed ER morphine 15mg BID in late November -pt's reports she used this 30-day supply of morphine in 2 weeks accidentally -the patient herself had no recollection of using morphine or oxycodone and in fact denied daily use of these medicines (she states she only takes tylenol on most days with oxycodone maybe 1-2x's/week) -the combination of chronic benzos, chronic narcotics, multiple muscle relaxers, etc - all in the setting of cirrhosis & cognitive impairment - likely has caused adverse effects and puts her at risk of sedation, etc. -given the escalating pain a lumbar CT was repeated to ensure no new pathology - NO acute compression fractures seen -during the stay her pain improved with use of oxycodone prn -Dr Samson Gonzalez also felt that she had piriformis dysfunction contributing significantly to her back pain -fortunately she was ambulating OK and ultimately was cleared by PT/OT to return home with her -although she is slated for back surgery in the future, I am concerned that she is very high risk for surgery given the cirrhosis; further, I am concerned her post-op course may be challenging due to her cirrhosis, chronic pain issues, cognitive impairment, poor nutrition & anorexia, etc. #abdominal pain, anorexia, nausea, diarrhea, weight loss - -seen by [facility] while here -differential - chronic pancreatitis vs PUD vs gastritis/esophagitis vs combo of issues vs other factors -PPI was increased to BID dosing and added carafate 1gm TID with meals for 7 days -recently started on Creon 1 cap TID w/ meals -- continue such for chronic pancreatitis -although she has past h/o varices, gastritis, etc. EGD was deferred during this brief stay -weight loss due to chronic pancreatitis? other factors? -of note - patient reported that the Creon was hundreds of dollars per month -will make a referral to Anna Ayala, outpatient home health care case manager, to help patient apply for patient assistance, etc to defray the high cost of the Creon #cognitive impairment - -alcoholic dementia, prior TBI with SDH requiring evacuation (2010), nutritional deficiencies, toxic effects from polypharmacy, etc likely all to blame for her memory/cognitive issues -B12 level was >1500 -B1 level 2023 was wnl -TSH wnl #cirrhosis - -h/o treated HepC years ago -h/o heavy alcohol abuse up until a few years ago -thus, cirrhosis likely on the basis of etoh -no evidence of hepatic encephalopathy while here -was compensated on exam and by way of recent abdominal imaging -GI consulted for consideration of EGD - endoscopy was deferred -cont Coreg for presumed portal HTN given her h/o esophageal varices #chronic pancreatitis - -may be the cause or at least a contributor of her weight loss, abdominal symptoms, diarrhea, etc (although stool pancreatic elastase was normal in 2023) -[id number] will cont Creon 1 capsule TID w/ meals #h/o TBI with SDH s/p craniotomy 2010 - -cognitive impairment since then -CT head 09/2024 without ICH/SDH, etc (atrophy only) #HTN - -cont Coreg BID but hold losartan for now #pancytopenia - -presumed 2nd to cirrhosis -TSH wnl -B12 level robust (>1500) -folate level 08/2024 was wnl #polypharmacy - -narcotics + valium + muscle relaxers + SSRI + Remeron (with dose increase 2 weeks ago from 15 to 30mg HS per pharmacy records) -patient unable to provide accurate history of what she was taking and how often -patient had been managing her own meds at home - she cannot do such any longer; she likely took 60 tabs of morphine ER in 2 to 2.5 weeks over late November/early December per her spouse -I believe polypharmacy is playing a huge role in her day to day difficulties; certainly at high risk of side effects, adverse events, etc. -would try to wean patient off Valium - defer to PCP for this; high risk of morbidity with narcotics + benzos + cirrhosis -reduce remeron to 7.5mg HS -reduce buspar from 30mg BID to 15mg BID -hold baclofen -hold flexeril -use oxycodone prn pain - refill given (#30 tabs) -advised to stop morphine ER - some of her recent GI intolerance could easily have been due to the morphine ER #hypomagnesemia - -replaced and resolved #hypophosphatemia - -replaced with PO phos supplementation #malnutrition - -taking minimal PO for weeks or longer - suspect her cirrhosis, chronic pancreatitis, pain issues, etc are all affecting her appetite -hopefully Creon supplementation will help with her GI symptoms Notes For Next Care Provider Medication Changes From Visit 1. HOLD baclofen and flexeril 2. HOLD morphine ER 3. REDUCE dose of buspar from 30mg BID to 15mg BID 4. REDUCE remeron dose to 7.5mg HS 5. CHANGE omeprazole to pantoprazole 40mg BID 6. ADD carafate 1gm AC x 7 days 7. REFILL oxycodone 5mg q6h prn 8. STOP alendronate 9. STOP losartan (BPs controlled without it) Admission HPI Per Admitting Provider 64yo female with chronic lumbar back pain on narcotics, chronic pancreatitis, prior alcoholism, TBI / SDH requiring craniotomy in 2010, tiny lacunar stroke 04/2024, COPD, cognitive impairment, cirrhosis, HTN, pancytopenia (likely due to cirrhosis), and recent hospitalization from 01/04 to 01/05 for nausea/emesis/abd pain. Symptoms were thought due to chronic pancreatitis and perhaps a gastroenteritis but her stool BioFire panel and respiratory BioFire panel were both fully negative. Patient reports she tolerated a small amount of oatmeal yesterday prior to discharge home. The patient is a very poor historian. She tells me she has not been taking any morphine or oxycodone at home. However, she does think that she took a dose of morphine this morning before going to her PCP's office. While at her PCP's today she vomited and "they sent me over" [to the ER at [facility]]. During the encounter her main complaint is her low back pain. She actually denied any nausea, vomiting or abdominal pain to me. With respect to the back she is to have surgery by Dr Jj in the near-future. The surgery has been rescheduled multiple times. She states she only takes tylenol as needed for the pain. The pain is in the lumbar spine, mainly midline - with radiation to both lateral hips. Denies pain in either leg/denies radicular pain. Denies any recent falls. Throughout the visit she was tearful and breathing rapidly as if in pain. With respect to her appetite she states it has only been poor for several days. She stated "I only can eat oatmeal and I eat it 3 times a day." When asked about the +THC on drug screen patient stated she does NOT have a medical THC card. She did admit to using her spouse's medical THC about 1x/week. After the visit I contacted her spouse, Mamta Barboza, by phone to gather more information. I told her that Nury was confused and could not provide an accurate history. I mentioned to Mamta that Nury had her morphine ER 15mg BID filled on 12/08/24 per pharmacy records. Mamta stated that Nury stopped taking it about 1.5-2 weeks ago because she "ran out." Mamta admitted that she does not supervise Nury's medications and thinks Nury got confused about dosing, etc. Based on that information we discussed that she was probably taking the ER morphine 3-4 times/day for about 2 weeks. In addition to the morphine ER she has had prescriptions for valium, oxycodone, baclofen, flexeril, high-dose buspar, and remeron that have all been filled in the last 1-2 months. In fact the remeron was recently increased from 15mg to 30mg on 12/23/24 per pharmacy records. I expressed my concerns to Mamta that given the polypharmacy in the setting of cirrhosis and underlying cognitive impairment that this is going to lead to increased confusion, increased fall risk, increased side effects, etc. Mamta stated that Reynas abdominal pain has actually been present "for months." Her appetite has been very poor chronically - not just in the last few days/weeks (patient stated the appetite was poor for 4-5 days only). Discharge Exam gen - looks much better in comparison to admission; NAD, walking around in the room comfortably HENT - MMM neck - no JVD heart - RRR, s1 s2, no murmur lungs - CTA b/l abd - soft, NT, ND, BS+, no HSM, no peritoneal signs ext - no edema, pulses 2+ b/l feet psych - poor historian Discharge Plan Discharge Items Patient Disposition: Home - Self-Care Reason For Visit: INTRACTABLE BACK PAIN, VOMITING, DEHYDRATION Discharge Diagnosis: 1. severe back pain due to lumbar degenerative disc disease --> pain improved 2. abdominal pain/vomiting --> resolved 3. dehydration --> resolved 4. cirrhosis 5. chronic pancreatitis 6. chronically poor appetite --> likely due to multiple causes Activity: As commented below Activity Comment: light activities only; avoid any activity that makes your back feel worse Lifting: No more than 10 pounds Driving/Machine Use: NO DRIVING due to prescription narcotic usage Non-emergency contact: Primary Care Provider and Specialist Call non-emergency contact if: you have any medication questions Follow-up/Referrals: Sathya Jj DO [Surgeon] - (see Dr Jj in 1-2 weeks to coordinate your upcoming surgery) Marleny Poe CRNP [Nurse Practitioner] - (if you have not seen a drier feeder in some time please re-establish care with one. We can set you up with [facility] to follow the liver & pancreas problems.) Swetha Newberry DO [Primary Care Provider] - (this week if possible for hospital follow-up ) Diet: Regular Addtl Attending Provider Instructions: From Dr Gonzalez: Back pain - as we discussed, your current situation with back pain appears to be almost entirely driven by tight/spastic piriformis muscles, the left is far worse than the right. This in turn appears to be caused by your left leg being about 6 mm shorter than the 1 on the right (which means that your pelvis will always be turned slightly forward to the left and therefore tugging on your left piriformis some, causing the spasm/tightness.) - this will often create diffuse low back painwhen the piriformis muscle gets tight, it causes our sacrum to turn and jam up the sacroiliac joint on the same side (causing SI joint pain) and then we often get secondary turning and muscle tightness in our lumbar spine region. However, most of the time, the piriformis tightness is the "keystone problem" - we will want to go about this in multiple ways: We should gently correct the leg length discrepancy with a heel lift (probably start with a 2 mm heel lift for your lefteven though there is a 6 mm difference, if we correct too fast, or often even if we correct things to normal, because your body is so used to the left leg being short, we can create a lot of other problems), we should have you continue to work on loosening your piriformis muscles (the left is worse than the right, but both are tight. I would have you do the dynamic stretches (post isometric relaxation stretches) at least 35 repetitions in the morning, and 35 repetitions at night. I would continue to use the Voltaren gel 4 times a day across the piriformis region for at least several days before deciding if it is helping or notand if it is helping, you can use it ongoing. I would also have your family physician continue to do OMT focused most specifically at your piriformis muscles (but also the surrounding pelvic and lumbar issues that often, up from a tight piriformis) (if your family physician does not do OMT herself, several of the DO physicians in the [facility] offices do, so she would simply have an internal referral) - as we discussed, the sort of things will often take a while to improveI would probably at least follow through with treatment for a month before even thinking about whether or not things are helping, but as we discussed, given how severe this has been and how long it is going on, it could take 3-4 months before you really start to see significant improvement. - while i don't know what else you've been experiencing, the current pain that we've been taking care of appears really dominantly muscular, and not anything that a spine surgery would actually improve - As we discussed, typically back pain that will respond well to surgery shows up more because of the nerve roots that are getting pinchedif you image search "dermatome map" that will show "how we are wired"and if you are able to match up what appear to be pinched nerves on your MRI with pain that you are having that follows along one of the lines of a dermatome map, then it is more likely a surgery would be helpfulfortunately I am just not seeing that with you. Addtl Dress Shoe Inspector Provider Instructions: Ms Rivas, The exact cause of your abdominal pain was uncertain but likely due to a combination of factors including chronic pancreatitis, possible gastritis (stomach irritation), possible side effects from medicines, etc. You improved with use of acid reducers and use of pancreatic enzyme capsules. [facility] We have increased your acid reducers and have sent these to [facility] on [facility]. Due to your cirrhosis your body will process/break down medicines very differently than most other people. Because of the cirrhosis you will be very sensitive to medicines and can develop side effects very easily. To help prevent side effects and adverse effects we are recommending the following changes in your medicines - 1. REDUCE your buspirone from 30mg twice daily to 15mg twice daily. New script sent in for the lower dose to [facility]. Alternatively you can cut the 30mg tablet in half and take 1/2 tablet twice daily. It will be easier, though, to simply take the new 15mg tablets. 2. REDUCE your mirtazapine from 15mg at bedtime to 7.5mg at bedtime. New script sent to [facility] for you. 3. STOP all baclofen use. 4. STOP all cyclobenzaprine use. 5. LOWER your oxycodone to 5mg every 6 hours as needed for pain. 6. DO NOT TAKE MORPHINE tablets as you will have a hard time tolerating these and be at increased risk of side effects. 7. STOP omeprazole. In its place take pantoprazole 40mg twice daily. This is to help your stomach. New script sent to [facility]. 8. TAKE carafate (sucralfate) 1gm with meals for 7 days then stop. Script sent to [facility] for you. 9. When you get the pancreatic enzyme capsules take 1 with each meal every day. 10. STOP alendronate (fosamax) as this medicine can irritate your esophagus. 11. STOP losartan blood pressure pill for now. Return to [facility] if - -you have fever over 100 degrees -you have worsening abdominal pain -you have severe nausea/vomiting -you have severe back pain not responding to your pain medicines -any other concerns It was our pleasure to care for you! Pending Studies at Discharge: No Stand-Alone Forms: My [facility], Smoking Cessation Medications and DC Order Prescriptions: New pantoprazole 40 mg Tablet,Delayed Release (Dr/Ec) 40 mg PO BID Qty: 60 2RF sucralfate [Carafate] 1 gram tablet 1 g PO AC 7 Days Qty: 21 0RF oxycodone 5 mg tablet 5 mg PO Q6H PRN (Reason: pain) Qty: 30 0RF Rx Instructions: do not take morphine tablets when taking oxycodone Continued calcium carbonate-vitamin D3 [Calcium 600 with Vitamin D3] 600 mg-12.5 mcg (500 unit) capsule 2 cap PO QAM Hold Instructions: SURGERY magnesium 250 mg tablet 250 mg PO QAM rizatriptan [Maxalt-BRUSH TRIMMING MACHINE SETTER] 10 mg tablet,disintegrating 10 mg PO UD MDD 3 DOSES/24 HOURS PRN (Reason: Migraine Headache) Rx Instructions: TAKE 10 MG AT ONSET OF YEPEZ, THEN REPEAT IN 2 HOURS IF NEEDED. MAX 3 DOSES/24 HOURS. aspirin 81 mg tablet,delayed release (DR/EC) 81 mg PO QAM multivitamin Tablet 1 tab PO QAM potassium 99 mg Tablet 99 mg PO QAM nystatin 100,000 unit/gram Powder 1 applic TOPICAL TID nystatin 100,000 unit/gram Powder 1 applic TOPICAL BID Creon 36,000-114,000- 180,000 unit Capsule,Delayed Release(Dr/Ec) 1 cap PO AC Qty: 30 0RF acetaminophen 500 mg Tablet 500 mg PO QID Qty: 0 0RF Rx Instructions: maximum of 2000mg in 24 hours (due to liver disease) fluoxetine [Prozac] 40 mg capsule 40 mg PO QAM carvedilol 3.125 mg tablet 3.125 mg PO BID atorvastatin 40 mg Tablet 40 mg PO QAM Qty: 30 0RF ferrous sulfate [iron] 325 mg (65 mg iron) Tablet 325 mg PO QAM diazepam 5 mg tablet 5 mg PO BID PRN (Reason: Anxiety) Changed buspirone 15 mg tablet 15 mg PO BID Qty: 30 0RF mirtazapine 7.5 mg tablet 7.5 mg PO HS Qty: 30 2RF Rx Instructions: note reduced dose Discontinued losartan 25 mg tablet 25 mg PO QAM baclofen 10 mg tablet 10 mg PO TID Qty: 90 0RF sodium chloride 1,000 mg tablet,soluble 1,000 mg PO BID Qty: 60 5RF omeprazole 40 mg capsule,delayed release(DR/EC) 40 mg PO QAM alendronate 35 mg tablet 35 mg PO Q7D Rx Instructions: Pt usually takes on Friday mornings oxycodone 5 mg tablet 7.5 mg PO Q6H PRN (Reason: Pain) cyclobenzaprine 5 mg tablet 5 mg PO HS PRN (Reason: Muscle Spasm) Discharge Orders: Discharge Order (Routine); Ordered 01/09/25 Ordered By: Jose Jones/Other Patient Handouts: Pancreatitis Chronic Dc Admission Data Admit Date/Time: 01/08/25 16:21 Attending Provider: Jose Sam Admit Provider: Samson Gonzalez Primary Care Provider: Swetha Newberry Other Providers: Lesly Garcia Jr; Kofi Baxter Other Interventions: Discharge Summary Assessment (RN) Last Done: 01/09/25 15:48 Hospital Stay Data Consultations 01/06/25 21:09 Consult Gastroenterology Routine 01/07/25 08:12 Consult Pain Management Routine PT, OT Diagnostic Imagining Performed Chest X-Ray 01/06/25 16:55 Clinical History: Chills and nausea Technique: A frontal view of the chest was obtained Comparison is made to the prior examination dated 12/13/2024 Findings: There are no confluent pulmonary infiltrates. The heart size is within normal limits. No pleural effusion or pneumothorax is seen. There is no definite pulmonary nodule. No fracture is noted. There is thoracic scoliosis and degenerative disc disease. There is a cervical fusion Impression: No active disease Electronically signed by Khang Leal 01-06-2025 5:54 PM KUB X-Ray 01/06/25 16:55 Clinical history: Pain One view of the abdomen was obtained Findings: There are mildly prominent air-filled loops of small and large bowel, which may be due to ileus. Obstruction is less likely. No renal or ureteral calculi are seen. No foreign body is evident. There is lumbar scoliosis and degenerative disc disease. Surgical clips are seen consistent with prior cholecystectomy Impression: Possible mild ileus Electronically signed by Khang Leal 01-06-2025 5:[address] 01/06/25 19:54 Exam(s): CT L SPINE EXAM: CT Lumbar Spine Without Intravenous Contrast CLINICAL HISTORY: Reason for exam: severe l-spine pain; compression fx?. TECHNIQUE: Axial computed tomography images of the lumbar spine without intravenous contrast. CTDI is 36.77 mGy and DLP is 971.01 mGy-cm. Automated exposure control was utilized for the study. A dose lowering technique was utilized adhering to the principles of ALARA. COMPARISON: No relevant prior studies available. FINDINGS: Vertebrae: No acute fracture. No significant misalignment. Discs/spinal canal/neural foramina: Advanced disc degeneration L3/L4 and L4/L5.There is spinal stenosis at L3/L4 and L4/L5, though the exact degree is difficult to assess by CT without myelographic contrast. Soft tissues: Unremarkable. IMPRESSION: No acute findings in the lumbar spine. Spinal stenosis at L3/L4 and L4/L5 difficult to fully assess by CT without myographic contrast. If there are neurologic symptoms, consider further evaluation with MRI. Electronically signed by: Oseas Vieira MD 01/06/25 23:07 PM Leg Length Series 01/07/25 15:41 EXAM: XR leg length study CLINICAL HISTORY: B/L Sacroiliitis. TECHNIQUE: X-ray, AP standing projections of both lower limbs radiographs were obtained. COMPARISON: None. FINDINGS: No significant limb length discrepancy was detected. Right lower limb = 88.0 cm Left lower limb = 87.4 cm Right femur = 44.3 cm Left femur = 45.2 cm Right tibia = 41.2 cm Left tibia = 40.6 cm Normal [id number]-poclf (HKA) angles bilaterally. Bones: Normal alignment of both lower limb bones No fractures or dislocations. No lytic or sclerotic lesions. No periosteal reaction or abnormal bone formation. Joint: Normal appearance of the joints. Soft Tissues: Normal appearance of the soft tissues No abnormal masses, swelling, or calcifications. IMPRESSION: 1. No significant limb length discrepancy was detected. 2. No evidence of fractures, dislocations, or significant abnormalities. DISCLAIMER:A subtle bone abnormality or fracture may not be readily apparent on x-rays, thus clinical correlation and further imaging including follow up CT, MRI, or follow up x-rays are advised as needed. Electronically signed by Isael Fitzpatrick 01-07-2025 7:58 PM Pending Results Patient Have Any Pending Studies at Discharge: No Discharge Instructions Given to Patient (Per Discharging Provider) From Dr Gonzalez: Back pain - as we discussed, your current situation with back pain appears to be almost entirely driven by tight/spastic piriformis muscles, the left is far worse than the right. This in turn appears to be caused by your left leg being about 6 mm shorter than the 1 on the right (which means that your pelvis will always be turned slightly forward to the left and therefore tugging on your left piriformis some, causing the spasm/tightness.) - this will often create diffuse low back painwhen the piriformis muscle gets tight, it causes our sacrum to turn and jam up the sacroiliac joint on the same side (causing SI joint pain) and then we often get secondary turning and muscle tightness in our lumbar spine region. However, most of the time, the piriformis tightness is the "keystone problem" - we will want to go about this in multiple ways: We should gently correct the leg length discrepancy with a heel lift (probably start with a 2 mm heel lift for your lefteven though there is a 6 mm difference, if we correct too fast, or often even if we correct things to normal, because your body is so used to the left leg being short, we can create a lot of other problems), we should have you continue to work on loosening your piriformis muscles (the left is worse than the right, but both are tight. I would have you do the dynamic stretches (post isometric relaxation stretches) at least 35 repetitions in the morning, and 35 repetitions at night. I would continue to use the Voltaren gel 4 times a day across the piriformis region for at least several days before deciding if it is helping or notand if it is helping, you can use it ongoing. I would also have your family physician continue to do OMT focused most specifically at your piriformis muscles (but also the surrounding pelvic and lumbar issues that often, up from a tight piriformis) (if your family physician does not do OMT her self, several of the DO physicians in the [facility] offices do, so she would simply have an internal referral) - as we discussed, the sort of things will often take a while to improveI would probably at least follow through with treatment for a month before even thinking about whether or not things are helping, but as we discussed, given how severe this has been and how long it is going on, it could take 3-4 months before you really start to see significant improvement. - while i don't know what else you've been experiencing, the current pain that we've been taking care of appears really dominantly muscular, and not anything that a spine surgery would actually improve - As we discussed, typically back pain that will respond well to surgery shows up more because of the nerve roots that are getting pinchedif you image search "dermatome map" that will show "how we are wired"and if you are able to match up what appear to be pinched nerves on your MRI with pain that you are having that follows along one of the lines of a dermatome map, then it is more likely a surgery would be helpfulfortunately I am just not seeing that with you. Total Time Total Time Spent Total Time Spent (In Minutes): 45 Coding Level of Care Code 35422 INP/OBS DISCH >30 MIN Diagnoses Severe lumbar pain M54.50 Degenerative joint disease (DJD) of lumbar spine M47.816 Spinal stenosis M48.00 Abdominal pain R10.84 Abdominal location: generalized Anorexia R63.0 Chronic pancreatitis K86.1 Pancreatitis type: unspecified pancreatitis type History of craniotomy Z98.890 Hypomagnesemia E83.42 History of alcohol use disorder Z87.898 Elevated LFTs R79.89 Polypharmacy Z79.899 Cognitive impairment R41.89 Cirrhosis K74.60 Pancytopenia D61.818 Weight loss R63.4
== END 2025-01-09 18:48 | disposition home or self-care (01) ==
LOC: ED 14:16 → 2W 14:16 → SUATTDRO 19:51 → 2W 20:47

== ENCOUNTER 2025-04-19 11:07 | Inpatient (IN) ==
--- NOTE | 2024-11-29 09:52 | PAT Medication Instructions ---
Medication Instructions Date of Service November 29, 2024 Home Medications Medication Instructions Recorded atorvastatin 40 mg tablet 40 mg PO QAM #30 tabs 04/30/24 baclofen 10 mg tablet 10 mg PO TID #90 tabs 11/01/24 rizatriptan 10 mg disintegrating tablet (Maxalt-FAMILY DEVELOPMENT EXTENSION SPECIALIST) 10 mg PO UD PRN calcium 600 mg (as carbonate)-vitamin D3 12.5 mcg (500 unit) capsule (Calcium with Vit D3) 2 cap PO QAM alendronate 35 mg tablet 35 mg PO Q7D buspirone 30 mg tablet 30 mg PO BID omeprazole 40 mg capsule,delayed release 40 mg PO QAM losartan 25 mg tablet 25 mg PO QAM carvedilol 3.125 mg tablet 3.125 mg PO BID fluoxetine 40 mg capsule (Prozac) 40 mg PO QAM atorvastatin 40 mg tablet 40 mg PO QAM acetaminophen 500 mg tablet 500 mg PO QID aspirin 81 mg tablet,delayed release 81 mg PO QAM multivitamin 1 tab PO QAM potassium 99 mg tablet 99 mg PO QAM mirtazapine 15 mg tablet (Remeron) 15 mg PO HS cyclobenzaprine 5 mg tablet 5 mg PO HS PRN diazepam 5 mg tablet 5 mg PO BID PRN ferrous sulfate 325 mg (65 mg iron) tablet (iron) 325 mg PO QAM oxycodone 5 mg tablet 7.5 mg PO Q6H PRN baclofen 10 mg tablet 10 mg PO TID magnesium 250 mg tablet 250 mg PO QAM nystatin 100,000 unit/gram topical powder 1 applic topical BID nystatin 100,000 unit/gram topical powder 1 applic topical TID Continue as directed rizatriptan 10 mg disintegrating tablet (Maxalt-FAMILY DEVELOPMENT EXTENSION SPECIALIST) 10 mg PO UD PRN(if needed) ASK your prescriber and surgeon aspirin 81 mg tablet,delayed release 81 mg PO QAM STOP taking 24 hours before surgery nystatin 100,000 unit/gram topical powder 1 applic topical BID nystatin 100,000 unit/gram topical powder 1 applic topical TID DO NOT take the morning of surgery magnesium 250 mg tablet 250 mg PO QAM ferrous sulfate 325 mg (65 mg iron) tablet (iron) 325 mg PO QAM multivitamin 1 tab PO QAM potassium 99 mg tablet 99 mg PO QAM losartan 25 mg tablet 25 mg PO QAM alendronate 35 mg tablet 35 mg PO Q7D calcium 600 mg (as carbonate)-vitamin D3 12.5 mcg (500 unit) capsule (Calcium with Vit D3) 2 cap PO QAM Take morning of surgery With a small sip of water, OTHERWISE NOTHING TO EAT OR DRINK AFTER MIDNIGHT: oxycodone 5 mg tablet 7.5 mg PO Q6H PRN(if needed) baclofen 10 mg tablet 10 mg PO TID diazepam 5 mg tablet 5 mg PO BID PRN(if needed) acetaminophen 500 mg tablet 500 mg PO QID fluoxetine 40 mg capsule (Prozac) 40 mg PO QAM atorvastatin 40 mg tablet 40 mg PO QAM carvedilol 3.125 mg tablet 3.125 mg PO BID omeprazole 40 mg capsule,delayed release 40 mg PO QAM buspirone 30 mg tablet 30 mg PO BID Take evening before surgery oxycodone 5 mg tablet 7.5 mg PO Q6H PRN(if needed) baclofen 10 mg tablet 10 mg PO TID diazepam 5 mg tablet 5 mg PO BID PRN(if needed) mirtazapine 15 mg tablet (Remeron) 15 mg PO HS cyclobenzaprine 5 mg tablet 5 mg PO HS PRN(if needed) acetaminophen 500 mg tablet 500 mg PO QID carvedilol 3.125 mg tablet 3.125 mg PO BID buspirone 30 mg tablet 30 mg PO BID Other Notes If you have any questions please call us at [phone] or [phone] or [phone] or [phone]
--- NOTE | 2024-12-02 12:16 | Anesthesiology Consultation ---
Date of Service December 02, 2024 Assessment & Plan (1) Encounter for pre-operative examination: - Infectious disease screening: Per assessment on 11/29/24- No known recent infectious disease contacts or current infectious disease symptoms. - Pulmonary visit (03/08/24): "Impression: 64-year-old female with prior history of tobacco abuse with chronic cough which is now resolved with therapy for upper airway cough syndrome.. Upper airway cough syndrome: Resolved. The patient is no longer taking any medications for this. If the cough were to recur, would recommend reinstitution of the pseudoephedrine, or pheniramine, Flonase, and saline sinus irrigation.. Patient reportedly has pulmonary hypertension based on echo from several years ago. She has no signs or symptoms concerning for pulmonary hypertension at this point time. She is pending a repeat evaluation with cardiology given the questionable history of cardiomyopathy (echo in 2019 showed normal EF). Unless her repeat echocardiogram were to show some signs of right ventricular failure, would not recommend additional pulmonary workup at this point in time. The patient is had general anesthesia on several occasions recently and done fine.. We would be happy to see this patient back in pulmonary clinic should she develop additional or progressive respiratory issues. Otherwise she is returned back to the care of her primary care provider" - Neurology workload note (05/07/24): "ok to have biopsy." - S/P bone marrow biopsy with imaging guidance (06/23/24): MAC at [facility]. No issues noted per post-op anesthesia progress note. 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 These have been stopped.. Continue 1.5 L/day free water fluid restriction.. Continue sodium chloride 1 g twice daily.. Serum sodium is acceptable at this time. Kidney function remains well preserved.. Patient reports recurrence of hepatitis C.. Await recommendations from tongue presser. Patient hopes to be a candidate for antiviral therapy.. h/o leukopenia and thr ombocytopenia. Bone marrow biopsy 07/11 revealed mildly hypercellular marrow with trilineage hematopoiesis" - Hx CVA 04/27/24: [facility] evaluation/admission- tiny acute lacunar infarct on Brain MRI. "Slight confusion" residual since per but otherwise no residual effects. DOS will be > 8 months after CVA (but prior to 9 months). Patient taking ASA 81mg which will be continued perioperatively. Patient made aware at PAT visit of increased risks associated with having CVA within 9 months of DOS and she voices understanding and wishes to proceed as scheduled if approved to proceed from anesthesia/surgeon perspective. Surgeon's office made aware. Reviewed with Dr. Eugene- recommend neurology perioperative guidance. Neurology made aware of upcoming surgery- received workload response 12/03/24, "yes. ok for surgery" - Patient acceptable risk for surgery pending surgeon-ordered cardiology ([facility], appt 12/10) and PCP (Dr. Swetha Prakash, appt 12/17) preop evaluations. Chart Review Chart Review: Patient seen in Pre Admission Testing Teaching & Discussion Pre-Anesthesia Teaching/Discussion Notes: Instructed NPO after midnight before surgery,except medications with 15 cc of water. Medication instructions provided according to the PAT guidelines. History Surgery Operation Date: 12/27/24 10:05 Proposed Procedures p L3-L5 Decompression and Fusion with Spinal Cord Monitoring - Sathya Jj, Height/Weight Height: 5 ft 5.5 in Weight: 77.7 kg Allergies Allergy/AdvReac Type Severity Reaction Status Date / Time brexpiprazole [From Rex[facility]i] Allergy Severe "Makes me Verified 12/02/24 14:45 very lofty" aripiprazole AdvReac Severe Seizure Verified 12/02/24 14:45 activity per [facility] EMR gabapentin AdvReac Severe Confusion Verified 12/02/24 14:45 ibuprofen AdvReac Severe Per [facility] Verified 12/02/24 14:45 EMR to be avoided given cirrhosis Medications Home Medications Medication Instructions Recorded Confirmed Last Taken rizatriptan 10 mg disintegrating 10 mg PO UD PRN Migraine Headache 11/21/21 12/02/24 09/22/24 tablet (Maxalt-HORTICULTURALIST) calcium 600 mg (as 2 cap PO QAM 08/02/22 12/02/24 09/22/24 carbonate)-vitamin D3 12.5 mcg (500 unit) capsule (Calcium with Vit D3) alendronate 35 mg tablet 35 mg PO Q7D 04/20/23 12/02/24 09/19/24 buspirone 30 mg tablet 30 mg PO BID 04/20/23 12/02/24 09/22/24 omeprazole 40 mg capsule,delayed 40 mg PO QAM gerd 04/20/23 12/02/24 09/22/24 release losartan 25 mg tablet 25 mg PO QAM 07/31/23 12/02/24 09/22/24 carvedilol 3.125 mg tablet 3.125 mg PO BID 04/26/24 12/02/24 09/22/24 fluoxetine 40 mg capsule (Prozac) 40 mg PO QAM 04/26/24 12/02/24 09/22/24 atorvastatin 40 mg tablet 40 mg PO QAM #30 tabs 04/30/24 12/02/24 09/22/24 acetaminophen 500 mg tablet 500 mg PO QID 06/18/24 12/02/24 09/22/24 aspirin 81 mg tablet,delayed 81 mg PO QAM 06/18/24 12/02/24 09/22/24 release multivitamin 1 tab PO QAM 06/18/24 12/02/24 09/22/24 potassium 99 mg tablet 99 mg PO QAM 06/18/24 12/02/24 09/22/24 mirtazapine 15 mg tablet (Remeron) 15 mg PO HS 06/23/24 12/02/24 09/21/24 cyclobenzaprine 5 mg tablet 5 mg PO HS PRN Muscle Spasm 09/22/24 12/02/24 Unknown diazepam 5 mg tablet 5 mg PO BID PRN Anxiety 09/22/24 12/02/24 Unknown ferrous sulfate 325 mg (65 mg 325 mg PO QAM 09/22/24 12/02/24 09/22/24 iron) tablet (iron) oxycodone 5 mg tablet 7.5 mg PO Q6H PRN Pain 09/22/24 12/02/24 Unknown baclofen 10 mg tablet 10 mg PO TID #90 tabs 11/01/24 12/02/24 Unknown magnesium 250 mg tablet 250 mg PO QAM 11/01/24 12/02/24 Unknown nystatin 100,000 unit/gram topical 1 applic topical BID 11/29/24 12/02/24 Unknown powder nystatin 100,000 unit/gram topical 1 applic topical TID 11/29/24 12/02/24 Unknown powder sodium chloride 1,000 mg soluble 1,000 mg PO BID #60 tabs 12/02/24 12/02/24 Un known tablet Past Medical History Medical History (Updated 12/02/24 @ 15:53 by Chrisitna Rubio) Anxiety and depression Bradycardia Chronic cough Follows with [facility] pulm "Due to pollen" Usually during spring/summer Chronic hyponatremia Per Nephro note 04/21/24: "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 These have been stopped... 1.5L/day free water fluid restriction, sodium chloride 1g BID" Chronic pain disorder Back Cirrhosis COPD (chronic obstructive pulmonary disease) Per records denies, "never diagnosed with this" GERD (gastroesophageal reflux disease) Hepatitis C Treated in History of anemia History of CVA (cerebrovascular accident) 04/28/24, "mild"/slight confusion residual per History of seizure (2010) Following subdural hematoma 2010 from fall Most recent seizure 2022 Pt follows with [facility] Neuro; per 01/01/24 Neuro note, pt had "episode of speech and movement arrest in the context of a history of posttraumatic seizures" 04/2023. Had normal EEG. Pt advised by neuro to start keppra but pt refused. 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 These have been stopped" Positive ROSANGELA (antinuclear antibody) Pulmonary hypertension Noted per remote records Most recent Echo 03/25/2024 with normal estimated RVSP at 31mmhg Seasonal allergies Spinal stenosis Stress incontinence Xerostomia Exercise / Class Metabolic Activity III < 4 Walking/Shop/Light housework Past Family History Family History Mother Hypertension Other No family history of adverse response to anesthesia Past Surgical History Surgical History History of bone marrow biopsy (06/2024) [facility] History of onel hole surgery (2010) > craniotomy History of carpal tunnel release R/L History of colonoscopy History of craniotomy (2010) R/t subdural hematoma from fall History of esophagogastroduodenoscopy (EGD) Hx of arthroscopy of left knee Hx of arthroscopy of shoulder Right Hx of cholecystectomy Hx of hysterectomy S/P cervical spinal fusion C4-C7 per imaging review, ~2007 Past Anesthesia History No Hx of Anesthesia Complications and No Family Hx of Anesthesia Complications History of PONV No Hx of PONV and No Hx of Motion Sickness Social History Smoking Status: Former smoker tobacco type: cigarettes Do You Dip or Chew Tobacco: No Smoking End Date: Quit 40 years ago Hx Alcohol Use: No (Hx Alcoholism, Quit 2021 (drank 6 beers/day) per records) substance use type: marijuana (Remote hx of medical marijuana use; no current/recent use) Review of Systems Patient denies chest pain, shortness of breath, fever, chills, palpitations. Physical Exam Vital Signs BP 138/77 P 66 TEMP 98.1 SP02 96%RA RESP 16 Physical Decreased cervical extension range of motion. Full TMJ range of motion. TMD > 3.5 finger breaths Mallampati Score II Dentition: missing molars, upper front bonded Lungs: clear throughout to auscultation Cardiac: regular rate and rhythm, no murmurs noted Spine: normal Carotid arteries: negative bruit Extremities: no LE edema Lab Results Anesthesia Preop Results Results Anesthesia Widget: WBC 4.93 K/ul (4.8-10.8) 12/02/24 Hgb 13.1 g/dl (12.0-16.0) 12/02/24 Hct 37.9 % (37.0-47.0) 12/02/24 Plt 119 K/uL (130-400) L 12/02/24 Na 131 mmol/L (136-145) L 12/02/24 K 4.3 mmol/L (3.5-5.1) 12/02/24 Cl 98 mmol/L (98-107) 12/02/24 CO2 27 mmol/L (21-32) 12/02/24 BUN 7 mg/dl (6-23) 12/02/24 Creat 0.72 mg/dl (0.6-1.2) 12/02/24 Glucose Level 90 mg/dl (70-99(Fasting)) 12/02/24 PT 11.6 Seconds (9.0-12.0) 12/02/24 PTT 27 Seconds (21-31) 12/02/24 INR 1.1 (0.9-1.1) 12/02/24 Urine Color Yellow 12/02/24 Urine Appearance Clear (Clear) 12/02/24 Urine pH 6.0 (4.5-7.5) 12/02/24 Urine Specific [place] 1.008 (1.000-1.030) 12/02/24 Urine Protein Negative (Negative) 12/02/24 Urine Glucose (UA) Negative (Negative) 12/02/24 Urine Ketones Negative (Negative) 12/02/24 Urine Blood Negative (Negative) 12/02/24 Urine Nitrite Negative (Negative) 12/02/24 Urine Bilirubin Negative (Negative) 12/02/24 Urine Urobilinogen Negative (Negative) 12/02/24 Urine Leukocyte Esterase Negative (Negative) 12/02/24 Blood Type A Negative 12/02/24 Antibody Screen NEGATIVE 12/02/24 Testing Laboratory Results 10/26/24 T. bili 0.6 AST 27 ALT 28 ALK PHOS 52 Electrocardiogram Date: 09/22/24 NSR at 70bpm. Low voltage QRS. No significant change compared to 05/27/2024 per client development manager comparison. Echocardiogram Date: 03/25/24 EF: 60-65% RWMA: + none Normal LV size and systolic function. Gr II DD. mildly dilated RV with nl systolic function Moderate RA dilation mild-mod MR mod TR normal est RVSP: 31mmHg Compared to 09/21/2019, RVSP has improved Stress Test Date: 03/17/24 Type: nuclear SUMMARY: 1. Negative myocardial perfusion for significant Lexiscan induced ischemia. 2. Small LV cavity with normal function. LVEF 85% with no regional wall motion abnormalities. 3. Non-diagnostic stress ECG due to inability to reach target HR with Lexiscan. Other Testing Brain MRI Date: 04/27/24 Punctate focus of restricted diffusion in the left putamen is compatible with a tiny acute lacunar infarct Head CT Date: 05/05/24 1. No definite acute infarct or acute intracranial hemorrhage. 2. The punctate lacunar infarct seen within the left basal ganglia on the recent MRI is not well identified by this modality. Head and neck CTA Date: 05/05/24 Unremarkable CTA of the head. No change in 40% stenosis of the proximal right internal carotid artery due to calcified atherosclerotic plaque. No additional stenoses within the major vessels of the neck. Dominant, patent right vertebral artery. Diminutive left vertebral artery on a congenital basis. Brain MRI Date: 05/05/24 1. No acute intracranial abnormality identified. 2. Previously noted punctate left subinsular lacunar infarct is not visualized on today's study. 3. Involutional changes with suggestion of mild chronic microvascular ischemic disease. Chest CT Date: 05/11/24 FINDINGS: Unremarkable thyroid. Partially calcified nonenlarged mediastinal and hilar lymph nodes compatible with prior granulomatous disease. The heart is upper limits of normal in size. No thoracic aortic aneurysm or dissection identified. No pulmonary emboli are seen. There is no pneumothorax, pleural effusion, airspace consolidation or pulmonary edema. Mild dependent subsegmental bibasilar atelectasis. No suspicious pulmonary nodules or masses. The central airways are patent. No acute upper abdominal abnormality. Cholecystectomy. Mild marginal nodularity of the liver suggestive of cirrhosis. Spleen measures up to 12 cm and demonstrates mild nonspecific heterogeneous enhancement. Unremarkable soft tissues. Partially imaged cervical spinal fusion hardware. Chronic appearing nondisplaced anterior rib fractures. No acute rib fracture identified. IMPRESSION: No acute posttraumatic intrathoracic abnormality identified. Cirrhotic liver. Cervical spine CT Date: 09/22/24 IMPRESSION: 1. Cerebral atrophy. No acute changes. 2. Degenerative and postoperative changes of the cervical spine without fracture. Head CT Date: 09/22/24 IMPRESSION: Cerebral atrophy. No acute changes. Degenerative and postoperative changes of the cervical spine without fracture.
--- NOTE | 2025-03-29 10:46 | Anesthesiology Consultation ---
Date of Service March 29, 2025 Assessment & Plan (1) Encounter for pre-operative examination: Chart Review Chart Review: Pending: Refer to Additional Notes / Consult section (pending surgeon ordered PCP/cardio clearances and neurology optimization ) and Patient seen in Pre Admission Testing - Awaiting PCP clearance 03/23/25 (Dr Carvalho- [facility]) - Awaiting cardio clearance 04/13/25 ([facility]) - Discussed case with Dr. Palomo- patient needs neurology evaluation/clearance prior to surgery- [place] [facility]y able to get patient in for appointment 03/31/25 at 930am- patient and patient's confirm they can make appt- will await neurology recommendations Per PAT appt on 03/29/25, no recent illness/disease exposures, illness related symptoms, or recent illness/disease positive tests. Will leave to surgeon's discretion if preop Covid testing needed Teaching & Discussion Pre-Anesthesia Teaching/Discussion Notes: Instructed NPO after midnight before surgery,except medications with 15 cc of water. Medication instructions provided according to the PAT guidelines. History Surgery Operation Date: 01/31/25 13:45 Proposed Procedures p L3-L5 Decompression and Fusion with Spinal Cord Monitoring - Sathya Jj DO Operation Date: 04/19/25 11:35 Proposed Procedures p L3-L5 Decompression and Fusion - Sathya Jj DO Height/Weight Height: 5 ft 5.5 in Weight: 75.1 kg Allergies Allergy/AdvReac Type Severity Reaction Status Date / Time brexpiprazole [From Rexulti] Allergy Severe "Makes me Verified 03/22/25 11:35 very lofty" aripiprazole AdvReac Severe Seizure Verified 03/22/25 11:35 activity per [facility] EMR gabapentin AdvReac Severe Confusion Verified 03/22/25 11:35 ibuprofen AdvReac Severe Per [facility] Verified 03/22/25 11:35 EMR to be avoided given cirrhosis Medications Home Medications Medication Instructions Recorded Confirmed Last Taken rizatriptan 10 mg disintegrating 10 mg PO UD PRN Migraine Headache 11/21/21 03/22/25 09/22/24 tablet (Maxalt-COMPRESSED GAS TESTER) carvedilol 3.125 mg tablet 3.125 mg PO BID 04/26/24 03/22/25 09/22/24 atorvastatin 40 mg tablet 40 mg PO QAM #30 tabs 0903/22/25 09/22/24 aspirin 81 mg tablet,delayed 81 mg PO QAM 06/18/24 03/22/25 09/22/24 release multivitamin 1 tab PO QAM 06/18/24 03/22/25 09/22/24 diazepam 5 mg tablet 5 mg PO BID PRN Anxiety 09/22/24 03/22/25 01/27/25 11:00 magnesium 250 mg tablet 250 mg PO QAM 11/01/24 03/22/25 Unknown nystatin 100,000 unit/gram topical 1 applic topical TID PRN Skin 11/29/24 03/22/25 Unknown powder Irritation cedpey-wygdzhjl-ctllmgf 1 cap PO AC #30 caps 01/05/25 03/22/25 Unknown 36,000-114,000-180,000 unit capsule,delay rel (Creon) buspirone 15 mg tablet 15 mg PO BID #30 tabs 01/09/25 03/22/25 Unknown pantoprazole 40 mg tablet,delayed 40 mg PO BID #60 tabs 01/09/25 03/22/25 Unknown release oxycodone 5 mg tablet 5 mg PO Q6H PRN pain #30 tabs 01/10/25 03/22/25 Unknown potassium citrate 99 mg capsule 99 mg PO QAM 01/27/25 03/22/25 Unknown acetaminophen 500 mg tablet 500 mg PO QID PRN Pain 03/22/25 03/22/25 Unknown calcium 600 mg (as 2 tab PO QAM 03/22/25 03/22/25 Unknown carbonate)-vitamin D3 5 mcg (200 unit) tablet fluoxetine 40 mg capsule 40 mg PO QAM 03/22/25 03/22/25 Unknown lamotrigine 25 mg tablet (Lamictal) 100 mg PO BID 03/22/25 03/22/25 Unknown mirtazapine 45 mg tablet 45 mg PO HS 03/22/25 03/22/25 Unknown Past Medical History Medical History (Updated 03/29/25 @ 12:48 by Anna Williamson PA-C) Anxiety and depression Bradycardia Chronic cough Follows with [facility] pulm "Due to pollen" Usually during spring/summer Stable and controlled per patient Chronic hyponatremia Per Nephro note 07/01/24: "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 These have been stopped... 1.5L/day free water fluid restriction, sodium chloride 1g BID" Chronic pain disorder Back Chronic pancreatitis Noted on 01/04/25 A/P CT Cirrhosis Noted on 01/04/25 A/P CT Follows with PCP- no liver specialist COPD (chronic obstructive pulmonary disease) Pt denies Breathing stable and controlled- no inhalers GERD (gastroesophageal reflux disease) well controlled and stable History of alcohol use disorder History of anemia History of CVA (cerebrovascular accident) 04/28/24, "mild"/slight confusion residual per History of seizure (2010) - Following subdural hematoma 2010 from fall - Pt followed with [facility] Neuro; per 01/01/24 Neuro note, pt had "episode of speech and movement arrest in the context of a history of posttraumatic seizures" 04/2023. Had normal EEG. Pt advised by neuro to start keppra but pt refused. - Possible/likely partial seizure 01/27/25- admitted to [facility]- has not followed up with neuro as outpatient (started on Lamictal prior to discharge on 01/29/25) History of TIA (transient ischemic attack) - Possible- 01/27/25 treated at [facility] emergency room- seen for altered mental status, confusion, temporary facial and speech issues - Seen by neuro during admission- imaging negative- felt likely partial seizure - Started on Lamictal - recommended outpatient follow up (pt no showed to appt) HTN (hypertension) Hx of hepatitis C treated in the Hx of migraines Rare Hx of tinnitus Lumbar facet joint syndrome Lumbar spondylosis Lumbar stenosis Non-ischemic cardiomyopathy "Alcoholic CM with recovered EF" per records EF 60-65% 03/2024 Osteoarthritis Pancytopenia Due to nutritional deficiencies per records Follows with hematology ([facility]) Polydipsia Per Nephro note 04/21/24: "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 These have been stopped" Positive ROSANGELA (antinuclear antibody) Pulmonary hypertension Noted per remote records Most recent Echo 03/25/2024 with normal estimated RVSP at 31mmhg Seasonal allergies Stress incontinence Thrombocytopenia Xerostomia Exercise / Class Metabolic Activity III < 4 Walking/Shop/Light housework (no chest pain or SOB with flat surface ambulation ) Past Family History Family History Mother , age 82 - uncertain cause Hypertension Father , in his 80s with dementia (uncertain type) Dementia Other No family history of adverse response to anesthesia Past Surgical History Surgical History History of bone marrow biopsy (06/2024) [facility] History of onel hole surgery (2010) initially, converted to craniotomy (at [facility]) History of carpal tunnel release R/L History of colonoscopy History of craniotomy (2010) R/t subdural hematoma from fall ([facility]) History of esophagogastroduodenoscopy (EGD) Hx of arthroscopy of left knee Hx of arthroscopy of shoulder Right Hx of cholecystectomy Hx of hysterectomy S/P cervical spinal fusion C4-C7 per imaging review, ~2007 (Full ROM) Past Anesthesia History No Hx of Anesthesia Complications and No Family Hx of Anesthesia Complications History of PONV No Hx of PONV and No Hx of Motion Sickness Social History Smoking Status: Former smoker tobacco type: cigarettes Do You Dip or Chew Tobacco: No Smoking End Date: Quit 40 years ago Hx Alcohol Use: Yes (quit ~2020) Alcohol type: beer alcohol intake frequency: other Alcohol Intake Frequency Comment: per record prior to quitting drank 6 beers a day Hx Substance Use: Yes substance use type: marijuana Substance Use Type Other:: does not have her own medical THC card; uses spouse's medical THC 1x/week Last Used Substance Other:: 03/18/25 (advised on policy) Review of Systems - Hx of snoring- no hx of sleep study Patient denies chest pain, shortness of breath, dyspnea on exertion, cough, wheezing, palpitations. No hx of [place]. No hx of blood clots or blood transfusions Physical Exam Vital Signs VITALS BP 120/78 P 64 TEMP 98.4 SP02 97% RESP 16 Constitutional no acute distress ENMT Mouth: no TMJ clicking Thyromental Distance: > or= 3.5 Finger Breadths (3.5) Mallampati Class: III Missing molars and side teeth Top front teeth bonding Neck + limited neck extension (mild) Respiratory normal respiratory effort; no respiratory distress Auscultation: lungs clear to auscultation bilaterally; no wheezes Cardiovascular Rate/Rhythm: regular rate and regular rhythm Heart Sounds: no murmur Vessels: no carotid bruit Musculoskeletal Spine: no pain with cervical ROM Extremities: extremities normal to inspection Psychiatric Orientation: alert Lab Results Anesthesia Preop Results Results Anesthesia Widget: WBC 3.21 K/ul (4.8-10.8) L 03/29/25 Hgb 12.1 g/dl (12.0-16.0) 03/29/25 Hct 35.0 % (37.0-47.0) L 03/29/25 Plt 124 K/uL (130-400) L 03/29/25 Na 132 mmol/L (136-145) L 03/29/25 K 4.3 mmol/L (3.5-5.1) 03/29/25 Cl 101 mmol/L (98-107) 03/29/25 CO2 25 mmol/L (21-32) 03/29/25 BUN 10 mg/dl (6-23) 03/29/25 Creat 0.80 mg/dl (0.6-1.2) 03/29/25 Glucose Level 116 mg/dl (70-99(Fasting)) H 03/29/25 PT 11.1 Seconds (9.0-12.0) 03/29/25 PTT 27 Seconds (21-31) 03/29/25 INR 1.0 (0.9-1.1) 03/29/25 Urine Color Yellow 03/29/25 Urine Appearance Clear (Clear) 03/29/25 Urine pH 6.5 (4.5-7.5) 03/29/25 Urine Specific [place] 1.014 (1.000-1.030) 03/29/25 Urine Protein Negative (Negative) 03/29/25 Urine Glucose (UA) Negative (Negative) 03/29/25 Urine Ketones Negative (Negative) 03/29/25 Urine Blood Negative (Negative) 03/29/25 Urine Nitrite Negative (Negative) 03/29/25 Urine Bilirubin Negative (Negative) 03/29/25 Urine Urobilinogen Negative (Negative) 03/29/25 Urine Leukocyte Esterase Negative (Negative) 03/29/25 Blood Type A Negative 03/29/25 Antibody Screen NEGATIVE 03/29/25 Testing Laboratory Results Pancytopenia- chronic- stable/improved Chronic mild hyponatremia Electrocardiogram Date: 01/27/25 NSR at 78bpm Left axis deviation Incomplete RBBB Prolonged QT When compared to EKG from January 04, 2025- incomplete RBBB is now present, criteria for inferior infarct at no longer present per cardio Chest X-Ray Date: 03/29/25 Findings: + NAD Echocardiogram Date: 03/25/24 EF: 60-65% RWMA: + none Normal LV size and systolic function. Gr II DD. mildly dilated RV with nl systolic function Moderate RA dilation mild-mod MR mod TR normal est RVSP: 31mmHg Compared to 09/21/2019, RVSP has improved Stress Test Date: 03/17/24 Type: nuclear SUMMARY: 1. Negative myocardial perfusion for significant Lexiscan induced ischemia. 2. Small LV cavity with normal function. LVEF 85% with no regional wall motion abnormalities. 3. Non-diagnostic stress ECG due to inability to reach target HR with Lexiscan. Other Testing Brain MRI 01/28/25= No acute intracranial findings. No change in appearance of the brain since MRI of May 28, 2024. Neck/Head CTA 01/27/25= Unremarkable CTA of the head and neck. Head CT 01/27/25= No acute intracranial findings. No change in appearance of the brain.
[~2025-04-19 11:07] MED LIST changes: +ACETAMINOPHEN 500 MG TAB PO SCH; -ATV1 PO; -CYM20 PO; +CeleBREX 200 MG CAP PO SCH; -ETOMIDATE 2 MG/ML 20 ML VIAL IV ONE; -FLV1 PO; -FNTTP25 TOP; -HYDR-3983 PO; -LEVE500T14 PO; +LR 15ML/HR IV SCH; +LR 60ML/HR IV SCH; -LRS20 PO; -ONDA4TAB9 PO; -PRLSR20 PO; -RMRS/45 PO; -ROCURONIUM BROMIDE 10 MG/ML 5 ML VIAL IV ONE; -THIA1TAB PO; -TPRSR50 PO; -VENL75TA4 PO
[2025-04-19] MEDS: LR 15ML/HR IV SCH (11:29)
[2025-04-19] MEDS: LR 60ML/HR IV SCH (11:30)
[2025-04-19] MEDS: ACETAMINOPHEN 500 MG TAB PO SCH (11:32)
[2025-04-19] MEDS ORDERED: ATROPINE SULFATE 0.1 MG/ML 10ML SYR IV PRN (11:37)
[2025-04-19] MEDS ORDERED: PROMETHAZINE HCL 6.25 MG in SODIUM CHLORIDE 0.9% 50 ML IV PRN (11:37)
[2025-04-19] MEDS ORDERED: ONDANSETRON INJ 2 MG/ML 2 ML VIAL IV PRN ×2 (11:37→16:37)
--- NOTE | 2025-04-19 12:01 | History & Physical Bridge Note ---
Date of Service April 19, 2025 History & Physical Bridge Note I have examined the patient, reviewed the History & Physical and in the interval since the performance of the History & Physical I have noted the following changes of clinical significance: no changes noted
--- NOTE | 2025-04-19 12:02 | History & Physical Report ---
Date of Service April 19, 2025 Assessment & Plan (1) Other spondylosis with radiculopathy, lumbar region: Plan: L3-L5 decompression fusion History of Present Illness Chief Complaint: Back and bilateral leg pain Primary Care Provider: Swetha Prakash DO This is a 65-year-old female presents for chronic persistent back and leg pain after failing course of nonoperative care is here for surgical intervention. Allergies Allergy/AdvReac Type Severity Reaction Status Date / Time aripiprazole Allergy Severe Seizure Verified 04/19/25 11:02 activity per [facility] EMR brexpiprazole [From Rexulti] AdvReac Severe "Makes me Verified 04/19/25 11:02 very lofty" gabapentin AdvReac Severe Confusion Verified 04/19/25 11:02 ibuprofen AdvReac Severe Per [facility] Verified 04/19/25 11:02 EMR to be avoided given cirrhosis Home Medications Medication Instructions Recorded Confirmed Type rizatriptan 10 mg disintegrating 10 mg PO UD PRN Migraine Headache 11/21/21 04/19/25 History tablet (Maxalt-CONCRETE HANDLER) carvedilol 3.125 mg tablet 3.125 mg PO BID 04/26/24 04/19/25 History atorvastatin 40 mg tablet 40 mg PO QAM #30 tabs 04/30/24 04/19/25 Rx aspirin 81 mg tablet,delayed 81 mg PO QAM 06/18/24 04/19/25 History release multivitamin 1 tab PO QAM 06/18/24 04/19/25 History diazepam 5 mg tablet 5 mg PO BID PRN Anxiety 09/22/24 04/19/25 History magnesium 250 mg tablet 250 mg PO QAM 11/01/24 04/19/25 History nystatin 100,000 unit/gram topical 1 applic topical TID PRN Skin 11/29/24 04/19/25 History powder Irritation ijutgd-jsxacegj-lnvytmy 1 cap PO AC #30 caps 01/05/25 04/19/25 Rx 36,000-114,000-180,000 unit capsule,delay rel (Creon) buspirone 15 mg tablet 15 mg PO BID #30 tabs 01/09/25 04/19/25 Rx pantoprazole 40 mg tablet,delayed 40 mg PO BID #60 tabs 01/09/25 04/19/25 Rx release oxycodone 5 mg tablet 5 mg PO Q6H PRN pain #30 tabs 01/10/25 04/19/25 Rx potassium citrate 99 mg capsule 99 mg PO QAM 01/27/25 04/19/25 History acetaminophen 500 mg tablet 500 mg PO QID PRN Pain 03/22/25 04/19/25 History calcium 600 mg (as 2 tab PO QAM 03/22/25 04/19/25 History carbonate)-vitamin D3 5 mcg (200 unit) tablet fluoxetine 40 mg capsule 40 mg PO QAM 03/22/25 04/19/25 History lamotrigine 25 mg tablet (Lamictal) 100 mg PO BID 03/22/25 04/19/25 History mirtazapine 45 mg tablet 45 mg PO HS 03/22/25 04/19/25 History Past Med/Surg History Problem List (Updated 04/19/25 @ 12:02 by Sathya Jj DO) Other spondylosis with radiculopathy, lumbar region Migraine without status migrainosus, not intractable Weight loss Chronic back pain (Acute) Lumbar spinal stenosis (Acute) Hypomagnesemia (Acute) Cognitive impairment Polypharmacy History of alcohol use disorder Anorexia Degenerative joint disease (DJD) of lumbar spine Severe lumbar pain Vomiting (Acute) Positive ROSANGELA (antinuclear antibody) Mitral regurgitation Tricuspid regurgitation Recurrent falls (Acute) Vitamin D deficiency Neutropenia Hyponatremia with decreased serum osmolality Encounter for pre-operative examination Lumbar spondylosis Spinal stenosis Elevated LFTs Ambulatory dysfunction (Acute) Hypocalcemia Anemia Leukopenia Metabolic acidosis (Acute) COPD (chronic obstructive pulmonary disease) pt denies Nonischemic cardiomyopathy Uterine leiomyoma (Chronic 07/18/11) 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/11) Medical History (Updated 04/19/25 @ 12:02 by Sathya Jj DO) History of alcohol use disorder Hx of hepatitis C treated in the History of TIA (transient ischemic attack) - Possible- 01/27/25 treated at [facility] emergency room- seen for altered mental status, confusion, temporary facial and speech issues - Seen by neuro during admission- imaging negative- felt likely partial seizure - Started on Lamictal - recommended outpatient follow up (pt no showed to appt) Thrombocytopenia Chronic pancreatitis Noted on 01/04/25 A/P CT Cirrhosis Noted on 01/04/25 A/P CT Follows with PCP- no liver specialist History of CVA (cerebrovascular accident) 04/28/24, "mild"/slight confusion residual per COPD (chronic obstructive pulmonary disease) Pt denies Breathing stable and controlled- no inhalers Non-ischemic cardiomyopathy "Alcoholic CM with recovered EF" per records EF 60-65% 03/2024 Chronic hyponatremia Per Nephro note 07/01/24: "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 These have been stopped... 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 These have been stopped" GERD (gastroesophageal reflux disease) well controlled and stable Lumbar facet joint syndrome Lumbar spondylosis Hx of tinnitus Hx of migraines Rare Pulmonary hypertension Noted per remote records Most recent Echo 03/25/2024 with normal estimated RVSP at 31mmhg Seasonal allergies History of anemia Chronic pain disorder Back Positive ROSANGELA (antinuclear antibody) Stress incontinence Chronic cough [facility] "Due to pollen" Usually during spring/summer Stable and controlled per patient HTN (hypertension) Osteoarthritis History of seizure (2010) - hx of TBI, subdural hematoma requiring craniotomy in 2010- subsequent development of seizure disorder- was treated x several years with Keppra but then patient took herself off - Pt followed with [facility]; per 01/01/24 Neuro note, pt had "episode of speech and movement arrest in the context of a history of posttraumatic seizures" 04/2023. Had normal EEG. Pt advised by neuro to start keppra but pt refused. - Possible/likely partial seizure 01/27/25- admitted to [facility]- has not followed up with neuro as outpatient (started on Lamictal prior to discharge on 01/29/25) Surgical History History of bone marrow biopsy (06/2024) [facility] History of craniotomy (2010) R/t subdural hematoma from fall ([facility]) Hx of hysterectomy Hx of cholecystectomy History of carpal tunnel release R/L Hx of arthroscopy of shoulder Right Hx of arthroscopy of left knee S/P cervical spinal fusion C4-C7 per imaging review, ~2007 (Full ROM) History of onel hole surgery (2010) initially, converted to craniotomy (at [facility]) History of esophagogastroduodenoscopy (EGD) History of colonoscopy Family History Mother , age 82 - uncertain cause Hypertension Father , in his 80s with dementia (uncertain type) Dementia Other No family history of adverse response to anesthesia Social History (Updated 01/28/25 @ 10:21 by Ganesh Garvey MD) Smoking Status: Former smoker Tobacco Type: Cigarettes Age Started Using Tobacco: 18; Age Quit Using Tobacco: 30; packs per day: 1; Smoking End Date: Quit 40 years ago; Second Hand Exposure: No; Do You Dip or Chew Tobacco: No; Tobacco Cessation Education Requested by Patient: No Hx Alcohol Use: Yes (quit ~2020) Alcohol type: beer Alcohol Intake Frequency Comment: 5 beers/day Hx Substance Use: Yes Last Used Substance Other:: 03/18/25 (advised on policy) Substance Use Type Other:: does not have her own medical THC card; uses spouse's medical THC 1x/week Preferred Language: Tamazight Communication Ability: Effective Natural Resource Technician Required: No Beliefs That Will Affect Care: None marital status: Current Living Situation: Spouse Current Living Situation Comment: Lives at home with . 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
[2025-04-19] MEDS ORDERED: MIDAZOLAM HCL 1 MG/ML 2ML VIAL ONE (12:21)
[2025-04-19] MEDS ORDERED: ONDANSETRON INJ 2 MG/ML 2 ML VIAL ONE (12:53)
[2025-04-19] MEDS ORDERED: LIDOCAINE 2% 2 ML VIAL/AMP(20MG/ML) INFIL ONE (12:53)
[2025-04-19] MEDS ORDERED: ROCURONIUM BROMIDE 10 MG/ML 5 ML VIAL IV ONE (12:53)
[2025-04-19] MEDS ORDERED: DEXAMETHASONE SOD INJ 4 MG/ML VIAL ONE (12:53)
[2025-04-19] MEDS ORDERED: SUGAMMADEX SODIUM 200 MG/2 ML VIAL IV ONE (12:53)
[2025-04-19] MEDS ORDERED: PROPOFOL IV EMULSION 10 MG/ML 20 ML VIAL IV ONE (12:53)
[2025-04-19] MEDS ORDERED: HYDROmorphone INJ 2 MG/ML SYR/VIAL ONE (12:54)
[2025-04-19] MEDS: SURGICEL ABSORB HEMOSTAT 2IN X 14IN TOP ONE (13:18)
[2025-04-19] MEDS ORDERED: ePHEDrine sulfate 50 MG/5 ML SYR ONE (13:21)
[2025-04-19] MEDS: BUPIVACAINE/EPINEPHRINE 0.25% 1:200,000 30 ML VIAL ONE (13:23)
[2025-04-19] MEDS: ceFAZolin 330 MG/ML 1 GM VIAL ONE (13:23)
--- NOTE | 2025-04-19 14:22 | Operative Report ---
Post Operative Report Pre & Post Diagnosis Operation Date: 04/19/25 12:25 Pre-Op Diagnosis: #1 other Spondylosis with Radiculopathy Lumbosacral Region #2 lumbar spinal stenosis Post-Op Diagnosis: Same I identified the patient and participated in the time-out.: Yes Procedure Operation Date: 04/19/25 12:25 Actual Procedures #1 decompression with bilateral medial facetectomies and foraminotomies L2-L3, L3-L4 and L4-L5. #2 posterior spinal fusion L3-L5. #3 placement posterior instrumentation L3-L5 using camber. #4 interbody fusion L3-L4 L4-L5. #5 p lacement Spira 12 x 26 mm at L3-L4 and 13 x 26 mm x 2 at L4-L5. #6 placement locally harvested morselized autograft in the posterior lateral gutters. #7 placement of Proteus combined with Koros in the posterior lateral gutters and os design in the interbody space. #8 application of versa wrap of the exposed dura. Surgeon Sathya Jj, Labor Service Representative Loretta Gregorio Estimated Blood Loss 350 Findings Consistent with Post-Op Diagnosis Specimens None Indications This is a 65-year-old female presents by much diagnosis after failing course of nonoperative care is here for surgical invention. Description of Procedure Patient was met with identified informed consent obtained. Patient was then taken to the operative suite underwent patient placed in a prone position on a Trevon table top of the Stephen frame. All bony prominences well-padded eyes inspected to ensure no external pressure placed upon. This point lumbar spine was prepped and draped in normal sterile fashion. Sharp dissection with the assistance of Bovie cautery from down to and exposing the lamina transverse processes of L3-L4-L5 bilaterally. From a Coloset 5 fashion complete laminectomy of 4 was performed including bilateral medial facetectomies and foraminotomies followed by complete laminectomy of L3 with bilateral medial facetectomies and foraminotomies and lastly partial laminectomy of L2 with bilateral medial facetectomies to address all subarticular stenosis. Pedicle screws were then placed in L3-L4-L5 bilaterally with assistance of fluoroscopy and the probe was placed. By way the transforaminal approach on the right discectomy of L4-L5 was performed endplates curetted to subcortical bleeding bone and a 13 x 26 mm spiral cage tapped in position. Then proceeded to the left transforaminal region at L4-L5. Again discectomy performed. Endplates guided to subcortical bleeding bone and a second to 13 x 26 mm spiral cage tapped into position. Then proceeded to L3-L4 and bilateral transforaminal approach on the left complete discectomy was performed. Endplates guided to subcortically bone and a 12 x 26 mm spiral cage tapped into position. Please note all cages were packed with os design bone graft. The rods were then compressed locked in final position bilaterally. The transverse processes of L3-L4-L5 burred to subcortical bony bone. Proteus combined with Koros and local autograft placed in the posterior lateral gutters. First wrap placed over the exposed dura. 15 round IVONE drain inserted. The incision was then closed with 1 Vicryl the fascia 2-0 Vicryl subcutaneously and 4 Monocryl for final skin closure. Steri-Strips sterile dressing placed. Patient waken taken to PACU in stable condition. Please note Loretta Gregorio was present at the entire procedure and on the patient positioning complex portion of the surgery and final skin closure. I attest to the content of the Intraoperative Record and any orders documented therein. Any exceptions are noted below.
--- NOTE | 2025-04-19 14:29 | Fluoroscopy Report ---
INTRAOPERATIVE RADIOGRAPHS CLINICAL HISTORY: Lumbar spinal fusion surgery. Fluoro time: 23 seconds Ka,r: 16.9 mGy FINDINGS: 2 spot fluoroscopic views of the lumbar spine are presented. There has been discectomy at L 3-L4 and L4-L5 with laminectomy and posterior fusion at L3-L5. Interpedicular screws are present at a ll levels. The orthopedic hardware appears intact. IMPRESSION: Intraoperative images from lumbar spinal fusion surgery as above. Electronically signed by: Keegan Caceres M.D. 04/19/2025 2:28 PM
--- NOTE | 2025-04-19 15:33 | Anesthesiology Progress Note ---
Date of Service April 19, 2025 Anesthesia Post Procedure Vital Signs Vital Signs: Temp Pulse Resp BP Pulse Ox O2 Del Method O2 Flow Rate 04/19/25 15:20 73 22 139/72 100 Room Air 04/19/25 15:10 70 22 137/86 100 Oxymask 3 04/19/25 15:00 82 20 145/78 H 100 Oxymask 8 04/19/25 14:50 79 21 161/79 H 99 Oxymask 8 04/19/25 14:41 36.8 C 86 14 142/73 H 96 Oxymask 8 04/19/25 11:14 Room Air Pain Intensity Back: Pain Intensity: 2 Transfer of Care Handoff Completed per policy Notes Mental Status: alert / awake / arousable Patient Amnestic to Procedure: Yes Nausea / Vomiting: adequately controlled Pain: adequately controlled Airway Patency, RR, SpO2: stable & adequate BP & HR: stable & adequate Hydration State: stable & adequate Anesthetic Complications: no major complications apparent
[2025-04-19] MEDS: HYDROmorphone INJ 2 MG/ML SYR/VIAL IV PRN (15:38)
[2025-04-19] MEDS ORDERED: ACETAMINOPHEN 500 MG TAB PO PRN (16:37)
[2025-04-19] MEDS ORDERED: NALOXONE HCL 0.4 MG/1 ML VIAL/CARP IV PRN (16:37)
[2025-04-19] MEDS ORDERED: FAMOTIDINE 20 MG TAB PO PRN (16:37)
[2025-04-19] MEDS ORDERED: ACETAMINOPHEN 1,000 MG/100 ML VIAL IV PRN (16:37)
[2025-04-19] MEDS ORDERED: DO NOT ADMINISTER FLU VACCINE PRN (16:37)
[2025-04-19] MEDS ORDERED: diphenhydrAMINE Capsule 25 MG CAP PO PRN (16:37)
[2025-04-19] MEDS ORDERED: MAGNESIUM HYDROXIDE SUSP 30 ML UDC PO PRN (16:37)
[2025-04-19] MEDS ORDERED: METOCLOPRAMIDE HCL INJ 5 MG/ML 2 ML VIAL IV PRN (16:37)
[2025-04-19] MEDS ORDERED: PROMETHAZINE 12.5 MG/50.5 ML BAG IV PRN (16:37)
[2025-04-19] MEDS ORDERED: SOD PHOSPHATE/SOD BIPHOSPHATE ENEMA 132 ML BTL PR PRN (16:37)
[2025-04-19] MEDS ORDERED: DO NOT ADMINISTER PNEUMOCOCCAL VACCINE PRN (16:37)
[2025-04-19] MEDS ORDERED: ALUMINUM/MAGNESIUM SUSP 30 ML UDC PO PRN (16:37)
[2025-04-19] MEDS ORDERED: ONDANSETRON 4 MG OD TAB PO PRN (16:37)
--- NOTE | 2025-04-19 17:12 | Hospitalist Consultation ---
Date of Consultation April 19, 2025 Assessment & Plan (1) Other spondylosis with radiculopathy, lumbar region: (2) Nonischemic cardiomyopathy: (3) Tricuspid regurgitation: (4) Anxiety and depression: Plan Nury is a 65F with a PMHx of chronic lumbar back pain, chronic pancreatitis, prior alcoholism, TBI / SDH requiring craniotomy in 2010, tiny lacunar stroke 04/2024, COPD, cognitive impairment, cirrhosis, HTN, chronic hyponatremia, depression, HTN, osteoperosis and pancytopenia (likely due to cirrhosis). Patient presented to the hospital for elective back surgery with Dr. Jj. [facility] consulted for medical management. 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 #Chronic pancreatitis Continue Creon Thank you for allowing us to participate in the care of this patient, please reach out with any questions or concerns. Hospital Medicine will continue to follow. Supervising Physician Co-Signing Physician Notes Patient was seen and examined independently I discussed the case with Saira Meredith PA-C I reviewed pertinent past medical social family history and also the plan of care and agree with the plan of care. Patient resting comfortably she has IVONE drain which is draining serosanguineous liquid no obvious complaints at the present time her exam is regular lungs are clear Patient is medically stable heart failure proved ejection fraction previous ischemic cardiomyopathy now continued on carvedilol. Regarding her mental health traumatic brain injury continues on BuSpar Prozac daily as a Caro Lamictal and mirtazapine. Maintaining Creon for pancreatitis Any exceptions will be noted below History of Present Illness Reason for Consultation: medical management Requesting Physician: medical management Attending Physician: Sathya Jj, DO History of Present Illness Nury is a 65F with a PMHx of chronic lumbar back pain, chronic pancreatitis, prior alcoholism, TBI / SDH requiring craniotomy in 2010, tiny lacunar stroke 04/2024, COPD, cognitive impairment, cirrhosis, HTN, chronic hyponatremia, depression, HTN, osteoperosis and pancyoptenia Patient presented to the hospital for elective back surgery with Dr. Jj. seen post operatively complaining of back pain does not radiate down to the hips as much as she should concered that her increase dose of remeron is stimulating her appetite too much does not use cpap Allergies Allergy/AdvReac Type Severity Reaction Status Date / Time aripiprazole Allergy Severe Seizure Verified 04/19/25 11:02 activity per [facility] EMR brexpiprazole [From Rexult[employer]] AdvReac Severe "Makes me Verified 04/19/25 11:02 very lofty" gabapentin AdvReac Severe Confusion Verified 04/19/25 11:02 ibuprofen AdvReac Severe Per [facility] Verified 04/19/25 11:02 EMR to be avoided given cirrhosis Home Medications Medication Instructions Recorded Confirmed Type rizatriptan 10 mg disintegrating 10 mg PO UD PRN Migraine Headache 11/21/21 04/19/25 History tablet (Maxalt-PROOF TESTER) carvedilol 3.125 mg tablet 3.125 mg PO BID 04/26/24 04/19/25 History atorvastatin 40 mg tablet 40 mg PO QAM #30 tabs 04/30/24 04/19/25 Rx aspirin 81 mg tablet,delayed 81 mg PO QAM 06/18/24 04/19/25 History release multivitamin 1 tab PO QAM 06/18/24 04/19/25 History diazepam 5 mg tablet 5 mg PO BID PRN Anxiety 09/22/24 04/19/25 History magnesium 250 mg tablet 250 mg PO QAM 11/01/24 04/19/25 History nystatin 100,000 unit/gram topical 1 applic topical TID PRN Skin 11/29/24 04/19/25 History powder Irritation lobiwf-zmgrfeed-zlsspnx 1 cap PO AC #30 caps 01/05/25 04/19/25 Rx 36,000-114,000-180,000 unit capsule,delay rel (Creon) buspirone 15 mg tablet 15 mg PO BID #30 tabs 01/09/25 04/19/25 Rx pantoprazole 40 mg tablet,delayed 40 mg PO BID #60 tabs 01/09/25 04/19/25 Rx release oxycodone 5 mg tablet 5 mg PO Q6H PRN pain #30 tabs 01/10/25 04/19/25 Rx potassium citrate 99 mg capsule 99 mg PO QAM 01/27/25 04/19/25 History acetaminophen 500 mg tablet 500 mg PO QID PRN Pain 03/22/25 04/19/25 History calcium 600 mg (as 2 tab PO QAM 03/22/25 04/19/25 History carbonate)-vitamin D3 5 mcg (200 unit) tablet fluoxetine 40 mg capsule 40 mg PO QAM 03/22/25 04/19/25 History lamotrigine 25 mg tablet (Lamictal) 125 mg PO BID 03/22/25 04/19/25 History mirtazapine 45 mg tablet 30 mg PO HS 03/22/25 04/19/25 History Patient History Medical History (Updated 04/19/25 @ 12:02 by Sathya Jj DO) History of alcohol use disorder Hx of hepatitis C treated in the History of TIA (transient ischemic attack) - Possible- 01/27/25 treated at [facility] emergency room- seen for altered mental status, confusion, temporary facial and speech issues - Seen by neuro during admission- imaging negative- felt likely partial seizure - Started on Lamictal - recommended outpatient follow up (pt no showed to appt) Thrombocytopenia Chronic pancreatitis Noted on 01/04/25 A/P CT Cirrhosis Noted on 01/04/25 A/P CT Follows with PCP- no liver specialist History of CVA (cerebrovascular accident) 04/28/24, "mild"/slight confusion residual per COPD (chronic obstructive pulmonary disease) Pt denies Breathing stable and controlled- no inhalers Non-ischemic cardiomyopathy "Alcoholic CM with recovered EF" per records EF 60-65% 03/2024 Chronic hyponatremia Per Nephro note 07/01/24: "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 These have been stopped... 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 These have been stopped" GERD (gastroesophageal reflux disease) well controlled and stable Lumbar facet joint syndrome Lumbar spondylosis Hx of tinnitus Hx of migraines Rare Pulmonary hypertension Noted per remote records Most recent Echo 03/25/2024 with normal estimated RVSP at 31mmhg Seasonal allergies History of anemia Chronic pain disorder Back Positive ROSANGELA (antinuclear antibody) Stress incontinence Chronic cough Follows with [facility] pulm "Due to pollen" Usually during spring/summer Stable and controlled per patient HTN (hypertension) Osteoarthritis History of seizure (2010) - hx of TBI, subdural hematoma requiring craniotomy in 2010- subsequent development of seizure disorder- was treated x several years with Keppra but then patient took herself off - Pt followed with [facility]; per 01/01/24 Neuro note, pt had "episode of speech and movement arrest in the context of a history of posttraumatic seizures" 04/2023. Had normal EEG. Pt advised by neuro to start keppra but pt refused. - Possible/likely partial seizure 01/27/25- admitted to [facility]- has not followed up with neuro as outpatient (started on Lamictal prior to discharge on 01/29/25) Surgical History History of bone marrow biopsy (06/2024) [facility] History of craniotomy (2010) R/t subdural hematoma from fall ([facility]) Hx of hysterectomy Hx of cholecystectomy History of carpal tunnel release R/L Hx of arthroscopy of shoulder Right Hx of arthroscopy of left knee S/P cervical spinal fusion C4-C7 per imaging review, ~2007 (Full ROM) History of onel hole surgery (2010) initially, converted to craniotomy (at [facility]) History of esophagogastroduodenoscopy (EGD) History of colonoscopy Family History Mother , age 82 - uncertain cause Hypertension Father , in his 80s with dementia (uncertain type) Dementia Other No family history of adverse response to anesthesia Social History (Updated 01/28/25 @ 10:21 by Ganesh Garvey MD) Smoking Status: Former smoker Tobacco Type: Cigarettes Age Started Using Tobacco: 18; Age Quit Using Tobacco: 30; packs per day: 1; Smoking End Date: Quit 40 years ago; Second Hand Exposure: No; Do You Dip or Chew Tobacco: No; Tobacco Cessation Education Requested by Patient: No Hx Alcohol Use: Yes (quit ~2020) Alcohol type: beer Alcohol Intake Frequency Comment: 5 beers/day Hx Substance Use: Yes Last Used Substance Other:: 03/18/25 (advised on policy) Substance Use Type Other:: does not have her own medical THC card; uses spouse's medical THC 1x/week Preferred Language: Japanese Communication Ability: Effective Business Intelligence Administrator Required: No Beliefs That Will Affect Care: None marital status: Current Living Situation: Spouse Current Living Situation Comment: Lives at home with . 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 Feels Safe at Home: Yes Safety Concerns: Feels Safe At This Time Assistive Devices: None Review of Systems Review of Systems: All systems reviewed & are unremarkable except as noted in Subjective Physical Exam Physical Exam: General: NAD, VS as above Resp: normal respiratory effort, lungs clear to auscultation anteriorly CV: RRR, no murmur, Abd: normal bowel sounds, non tender, no hepatosplenomegaly Extremities: Moves all extremities, able to wiggle toes bilaterally Neuro: A&O x3, Skin: intact, no lesions noted Results & Data Results & Data Vital Signs (Past 12 Hours) Vital Signs Temp Pulse Resp BP Pulse Ox O2 Del Method O2 Flow Rate 04/19/25 16:10 78 17 122/82 99 Room Air 04/19/25 16:00 73 21 125/84 100 Room Air 04/19/25 15:50 72 19 126/79 100 Room Air 04/19/25 15:40 74 19 143/70 H 100 Room Air 04/19/25 15:30 97.9 F 74 21 147/80 H 100 Room Air 04/19/25 15:20 73 22 139/72 100 Room Air 04/19/25 15:10 70 22 137/86 100 Oxymask 3 04/19/25 15:00 82 20 145/78 H 100 Oxymask 8 04/19/25 14:50 79 21 161/79 H 99 Oxymask 8 04/19/25 14:41 98.2 F 86 14 142/73 H 96 Oxymask 8 04/19/25 11:14 Room Air PG Care Time/CCT Total # of Minutes Spent Total Time Spent with Patient: Total time spent is greater than 50% in coordination of care (as documented) at patient's floor/unit and/or counseling patient: Coding Level of Care Code 78741 IN/OBS CONSULT LVL 3,45M Diagnoses Other spondylosis with radiculopathy, lumbar region M47.26 Nonischemic cardiomyopathy I42.8 Tricuspid regurgitation I07.1 Anxiety and depression F41.9; F32.A
[2025-04-19] MEDS: HYDROmorphone INJ 0.5 MG/0.5 ML SYR IV PRN (17:31)
[2025-04-19] MEDS: PANCREAZE (LIPASE 10,500U) CAP PO SCH (18:28)
[2025-04-19] MEDS: LACTATED RINGER'S 1,000 ML IV SCH (18:36)
[2025-04-19] MEDS: DOCUSATE SODIUM/SENNA 50/8.6MG TAB PO SCH (20:40)
[2025-04-19] MEDS: lamoTRIgine 100 MG TAB PO SCH (20:40)
[2025-04-19] MEDS: MIRTAZAPINE SOLTAB 15 MG PO SCH (20:40)
[2025-04-19] MEDS: busPIRone 15 MG TAB PO SCH (20:40)
[2025-04-19] MEDS ORDERED: RIZATRIPTAN BENZOATE 10 MG TAB PO PRN (22:00)
[2025-04-20] MEDS: POLYETHYLENE (MIRALAX) 17 GM PACK PO SCH (06:05)
[2025-04-20 06:47] LABS: Hematocrit (blood only) 34.9 % (37.0-47.0); Hemoglobin 11.5 g/dl (12.0-16.0); Immature Granulocytes # (auto) 0.05 K/uL (0.01-0.20); Immature Granulocytes % (auto) 0.5 %; Mean Corpuscular Hemoglobin 34.1 pg (25.0-34.0); Mean Corpuscular Volume 103.6 fL (80.0-100.0); Platelet Count 162 K/uL (130-400); RDW Standard Deviation 52.1 fL (36.4-46.3); Red Blood Count 3.37 M/uL (4.20-5.40); White Blood Count 10.64 K/ul (4.8-10.8)
[2025-04-20 07:05] LABS: Anion Gap 7.0 (3-11); Blood Urea Nitrogen 11.0 mg/dl (6-23); Calcium 8.8 mg/dl (8.6-10.3); Carbon Dioxide 27.0 mmol/L (21-32); Chloride 104.0 mmol/L (98-107); Creatinine Clr Calc Pharmacy 75.8 ml/min; Glucose 120.0 mg/dl (70-99(Fasting)); Potassium 4.3 mmol/L (3.5-5.1); Sodium 138.0 mmol/L (136-145)
[2025-04-20] MEDS: HYDROmorphone INJ 1 MG/ML SYRINGE IV PRN (07:36)
[2025-04-20] MEDS: ATORVASTATIN 40 MG TAB PO SCH (08:30)
[2025-04-20] MEDS: ASPIRIN 81 MG ECTAB PO SCH (08:30)
[2025-04-20] MEDS: CALCIUM 600MG + VIT D 400 IU TAB PO SCH (08:30)
[2025-04-20] MEDS: MULTIVITAMIN TAB PO SCH (08:33)
[2025-04-20] MEDS: MAGNESIUM OXIDE 400 MG TAB PO SCH (08:33)
[2025-04-20] MEDS: dexAMETHasone 6 MG in SYRINGE 0 ML IV SCH (08:38)
[2025-04-20] MEDS ORDERED: NON-FORMULARY MEDICATION (Potassium Citrate 99 mg Capsule) PO SCH (09:00)
--- NOTE | 2025-04-20 10:27 | Orthopedic Progress Note ---
Date of Service April 20, 2025 Assessment & Plan (1) Other spondylosis with radiculopathy, lumbar region: Plan: At this time continue physical therapy monitor IVONE output anticipate discharge to rehab in the next few days. Admission and Anticipated Discharge Date Admission Date: April 19, 2025 Subjective She has had a bed she was banged up patient's back pain is controlled leg symptoms improved Physical Exam Physical Exam: Patient in the chair at the bedside. She appears comfortable. Is concerning to testing. Results & Data Vital Signs (Past 12 Hours) Vital Signs Temp Pulse Resp BP Pulse Ox O2 Del Method 04/20/25 07:42 36.6 C 86 18 169/88 H 100 Room Air 04/20/25 04:09 36.5 C 72 16 129/84 98 Room Air 04/19/25 22:40 36.5 C 75 16 132/83 94 Room Air
--- NOTE | 2025-04-20 11:10 | Hospitalist Progress Note ---
"Date of Service April 20, 2025 Assessment & Plan (1) Other spondylosis with radiculopathy, lumbar region: (2) Nonischemic cardiomyopathy: (3) Tricuspid regurgitation: (4) Anxiety and depression: Plan Nury is a 65F with a PMHx of chronic lumbar back pain, chronic pancreatitis, p rior alcoholism, TBI / SDH requiring craniotomy in 2010, tiny lacunar stroke 04/2024, COPD, cognitive impairment, cirrhosis, HTN, chronic hyponatremia, depression, HTN, osteoperosis and pancytopenia (likely due to cirrhosis). Patient presented to the hospital for elective back surgery with Dr. Jj. [facility] consulted for medical management. 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 #Chronic pancreatitis Continue Creon Thank you for allowing us to participate in the care of this patient, please reach out with any questions or concerns. [facility] will sign off. Admission and Anticipated Discharge Date Admission Date: April 19, 2025 Subjective patient seen sitting up in chair. Reports having back pain. However was able to ambulate in the halls already. Will plan for Renteria removal today. No other acute concerns. Review of Systems Review of Systems: All systems reviewed & are unremarkable except as noted in Subjective Physical Exam Physical Exam: General: NAD, VS as above Resp: normal respiratory effort, lungs clear to auscultation CV: RRR, no murmur, Extremities: Moves all extremities, n back: dressing with shadowing outlined, drain in place Neuro: A&O x3, Results & Data Results & Data Vital Signs (Past 12 Hours) Vital Signs Temp Pulse Resp BP Pulse Ox O2 Del Method 04/20/25 07:42 97.9 F 86 18 169/88 H 100 Room Air 04/20/25 04:09 97.7 F 72 16 129/84 98 Room Air Laboratory Results cbc and chemistry reviewed PG Care Time/CCT Total # of Minutes Spent Total Time Spent with Patient: Total time spent is greater than 50% in coordination of care (as documented) at patient's floor/unit and/or counseling patient: Coding Level of Care Code 53724 SUB INP/OBS CARE MIN Diagnoses Other spondylosis with radiculopathy, lumbar region M47.26 Nonischemic cardiomyopathy I42.8 Tricuspid regurgitation I07.1 Anxiety and depression F41.9; F32.A"
--- NOTE | 2025-04-21 08:25 | Orthopedic Progress Note ---
Date of Service April 21, 2025 Assessment & Plan (1) Other spondylosis with radiculopathy, lumbar region: Plan: At this time we will continue physical therapy monitor IVONE output anticipate discharge to rehab tomorrow. Admission and Anticipated Discharge Date Admission Date: April 19, 2025 Subjective Patient struggling with back pain last evening. She feels somewhat better this morning. She is denies any nausea vomiting or headache. She is eating well. Denies any leg pain. Physical Exam Physical Exam: Patient is in the chair at the bedside. He is comfortable. His gastric tube is in. Results & Data Vital Signs (Past 12 Hours) Vital Signs Temp Pulse Resp BP BP Pulse Ox O2 Del Method 04/21/25 07:44 37.0 C 79 18 124/79 98 Room Air 04/20/25 22:18 36.5 C 80 18 123/72 99 Room Air 04/20/25 21:27 82 135/76 98 Room Air
[2025-04-21 15:56] VITALS: RESP 18; O2SAT 95
[2025-04-21] MEDS: General Order Problem(s) SCH (23:30)
[2025-04-21 23:34] VITALS: TEMP 98.1
[2025-04-22 07:14] VITALS: BP 148/78; PULSE 91
--- NOTE | 2025-04-22 09:46 | Discharge Summary ---
Date of Service April 22, 2025 Admission HPI Per Admitting Provider This is a 65-year-old female presents for chronic persistent back and leg pain after failing course of nonoperative care is here for surgical intervention. Principal Diagnosis Lumbar spondylosis with radiculopathy Discharge Data Allergies Allergy/AdvReac Type Severity Reaction Status Date / Time aripiprazole Allergy Severe Seizure Verified 04/19/25 11:02 activity per [facility] EMR brexpiprazole [From [employer]] AdvReac Severe "Makes me Verified 04/19/25 11:02 very lofty" gabapentin AdvReac Severe Confusion Verified 04/19/25 11:02 ibuprofen AdvReac Severe Per [facility] Verified 04/19/25 11:02 EMR to be avoided given cirrhosis Consultations 04/19/25 16:37 Consult Hospitalist Routine Procedures Performed Operation Date: 04/19/25 12:25 Actual Procedures p L3-L5 Decompression and Fusion(Not Applicable) - Sathya Jj DO Ordered Studies 04/19/25 12:25 FL lumbar spine 2-3V Routine Hospital Course (1) Other spondylosis with radiculopathy, lumbar region: Patient underwent lumbar depression fusion trial as well as taken to orthopedic for postoperative. Postop patient progressed appropriately. IVONE drain decreasing. Excellent strength testing. Pain controlled. Subsidy discharged to rehab. Discharge orders instructions from the chart for further review. Total Time Total Time Spent Total Time Spent (In Minutes): 20 minutes Discharge Plan Discharge Items Patient Disposition: Transfer Inpatient Rehab Fac Reason For Visit: Other Spondylosis with Radiculopathy Lumbosacral R Discharge Diagnosis: Lumbar spondylosis with radiculopathy Activity: As commented below Non-emergency contact: Primary Care Provider Call non-emergency contact if: you have any medication questions Follow-up/Referrals: Swetha Newberry DO [Primary Care Provider] - Diet: Regular Addtl Attending Provider Instructions: ACTIVITY RECOMMENDATIONS: SELF CARE INSTRUCTIONS AFTER THORACIC/LUMBAR FUSIONS 1. You may walk to your tolerance. It is good exercise for your legs and back. Expect some back and intermittent leg aches and pains. 2. You may perform "counter-top" level activities (make a sandwich, rabia with a project, etc.). 3. No bending or lifting of more than 10 pounds or back twisting of any nature (roll like a log when turning in bed). 4. You may ride in a car for 20-30 minutes at a time. No driving until after your first visit with your doctor. 5. Frequent changes of position and restricting sitting to 30 minutes at a time will help limit the amount of back spasms and stiffness you may experience. 6. You may discontinue the use of ambulatory aids (cane, crutches, etc.) once your strength and confidence allow. 7. You may solar system installer the shower and let water strike your incision when you arrive home at least once daily. Do not take a tub bath, sit in a hot tub or go into a swimming pool until after your first recheck in the office. 8. You may resume previous diet. SPECIAL CARE INSTRUCTIONS: VERY IMPORTANT TO READ AND REVIEW A. Your surgical incision has been closed with a cosmetic suture under the skin that will dissolve in about 6 weeks. In 14 days, you can use a pair of clean scissors and cut the suture that is left outside of the skin at the ends of your incision. 1. The small skin tapes can be removed 7 days after surgery if they have not fallen off by that point. 2. You may keep the wound open to air as much as possible to promote healing after post-op day number 5 unless told otherwise by your doctor. 3. If you think the wound looks like it is becoming infected (redness or worsening drainage) and/or you are experiencing fever, chill or worsening back pain and muscle spasms, contact the office so that we may evaluate you as soon as possible. B. Complications are uncommon, but please contact us if you have any signs or symptoms of: 1. wound infection (fever higher than 102.5 degrees F, redness, separation of wound, drainage, or increasing pain from the incision) 2. blood clots in legs (pain, swelling, redness and warmth in legs) 3. urinary tract infection (fever higher than 102.5 degrees F, burning upon urination or increased frequency of urination) 4. nerve problems (inability to walk on your toes or heels, numbness, loss of bowel or bladder control) 5. any other symptoms that concern you C. Please call the office at if you have any concerns or questions about your operation or recovery. D. No smoking! Smoking drastically decreases the chance of a solid fusion. E. Do not take any anti-inflammatory medications (Indocin, Advil, Motrin, Aspirin, Naprosyn, etc.) as these may inhibit the chance of a solid fusion. Tylenol is okay to take for pain. MANAGING PAIN AFTER SPINAL SURGERY 1. Narcotic medication is intended for short-term use and will be provided for surgical pain. Surgical pain usually lasts for a period of 4-6 weeks. Narcotic medication includes Percocet, Vicodin, Darvocet, Tylenol #3 or Lortab. 2. Longer-term pain is more appropriately treated with non-narcotic medication such as Tylenol ES. 3. Muscle spasm is not appropriately treated with narcotics. Muscle relaxers such as Soma, Flexeril or Skelaxin can be used along with Tylenol ES. 4. Remember that we all live with some "aches and pains". This is not unusual or uncommon after an injury or as we get older. a. Back pain is expected and may include muscle spasms for 4 to 6 weeks after surgery. The pain should gradually improve. If the pain worsens for no apparent reason, please contact the office. b. Intermittent leg pain may also be experienced and should not be concerned about unless it worsens for no apparent reason. If so, please contact the office. 5. We will provide appropriate medication within the normal guidelines of their prescribed use. We will also be very cautious and aware of potential abuse and extended duration of patients' medication needs. a. Pain medications are for your comfort and to assist with sleep and rest so that the tissue can heal. They are not provided in order to return to normal activity and should not be used through the day. To do so or worsening pain at night can result from ongoing tissue damage and development of tolerance to the prescribed medicine. 6. Please allow 2-3 days to process refills. Prescriptions will not be mailed but must be picked up at the office. FOLLOW UP VISIT: Keep your scheduled follow-up appointment. Any questions, please call the office at . Pending Studies at Discharge: No Stand-Alone Forms: My [facility] Skilled Items Patient informed of condition?: Yes DNR: No Discharge Level of Care: Acute rehab Communicable Disease: No Discharge Prognosis: Improving Lines: None Urinary Catheter: No Medications and DC Order Prescriptions: New tramadol 50 mg tablet 50 mg PO Q6H PRN (Reason: pain, moderate) Qty: 30 0RF oxycodone 5 mg tablet 5 mg PO Q6H PRN (Reason: pain) Qty: 30 0RF Rx Instructions: Oxycodone for severe pain tramadol for mild pain Continued magnesium 250 mg tablet 250 mg PO QAM rizatriptan [Maxalt-DOLLYMAN] 10 mg tablet,disintegrating 10 mg PO UD MDD 3 DOSES/24 HOURS PRN (Reason: Migraine Headache) Rx Instructions: TAKE 10 MG AT ONSET OF YEPEZ, THEN REPEAT IN 2 HOURS IF NEEDED. MAX 3 DOSES/24 HOURS. aspirin 81 mg tablet,delayed release (DR/EC) 81 mg PO QAM multivitamin Tablet 1 tab PO QAM nystatin 100,000 unit/gram Powder 1 applic TOPICAL TID PRN (Reason: Skin Irritation) fluoxetine 40 mg Capsule 40 mg PO QAM calcium carbonate-vitamin D3 [Calcium + D] 600 mg-5 mcg (200 unit) Tablet 2 tab PO QAM mirtazapine 45 mg Tablet 30 mg PO HS acetaminophen 500 mg tablet 500 mg PO QID PRN (Reason: Pain) Rx Instructions: maximum of 2000mg in 24 hours (due to liver disease) lamotrigine [Lamictal] 25 mg tablet 125 mg PO BID Rx Instructions: By mouth: 25 mg twice a day for 1 week, then 50 mg twice a day for 1 week. Then 75 mg twice a day for 1 week, and then stay at 100 mg twice a day. Creon 36,000-114,000- 180,000 unit Capsule,Delayed Release(Dr/Ec) 1 cap PO AC Qty: 30 0RF Rx Instructions: 01/27/25 - THIS PRESCRIPTION BOTTLE READS : "TAKE ONE CAPSULE AT HS". PT IS TAKING ONE CAPSULE WITH EACH MEAL EATEN. pantoprazole 40 mg Tablet,Delayed Release (Dr/Ec) 40 mg PO BID Qty: 60 2RF buspirone 15 mg tablet 15 mg PO BID Qty: 30 0RF oxycodone 5 mg tablet 5 mg PO Q6H PRN (Reason: pain) Qty: 30 0RF Rx Instructions: do not take morphine tablets when taking oxycodone potassium citrate 99 mg Capsule 99 mg PO QAM carvedilol 3.125 mg tablet 3.125 mg PO BID atorvastatin 40 mg Tablet 40 mg PO QAM Qty: 30 0RF diazepam 5 mg tablet 5 mg PO BID PRN (Reason: Anxiety) Discharge Orders: Discharge Order (Routine); Ordered 04/22/25 Ordered By: Sathya Jj Admission Data Admit Date/Time: 04/19/25 14:36 Attending Provider: Sathya Jj Admit Provider: Sathya Jj Primary Care Provider: Swetha Newberry Other Providers: [facility]; Natasha Mart Other Interventions: Discharge Summary Assessment (RN) Last Done: 04/22/25 09:44
== END 2025-04-22 13:16 | DRG 427 ==
LOC: ASU 11:07 → 3E 14:36